=== PATIENT | male | born 1950 | race Caucasian/White ===

== ENCOUNTER 2023-03-04 10:36 | Outpatient (OUT) | payer MEDICARE, OTHER, SELFPAY ==
[2023-03-04 11:42] LABS: Basophils Absolute Auto 0.1 10^3/uL (0.0-0.1); Basophils Percent Auto 1.2 % (0.2-2.0); Eosinophils Absolute Auto 0.2 10^3/uL (0.0-0.7); Eosinophils Percent Auto 4.4 % (0.9-7.0); Hematocrit 39.3 % (42.0-54.0); Hemoglobin 12.9 g/dL (14.0-18.0); Immature Granulocytes Abs Auto 0.01 10^3/uL (0.00-0.03); Immature Granulocytes Pct Auto 0.2 % (0.0-0.5); Lymphocytes Absolute Auto 0.8 10^3/uL (1.2-3.8); Lymphocytes Percent Auto 16.3 % (20.5-60.0); Mean Corpuscular HGB Conc 32.8 g/dL (29.9-35.2); Mean Corpuscular Hemoglobin 30.1 pg (25.9-34.0); Mean Corpuscular Volume 91.6 fL (80.0-94.0); Mean Platelet Volume 9.9 fL (9.5-13.5); Monocytes Absolute Auto 0.6 10^3/uL (0.3-0.8); Monocytes Percent Auto 11.7 % (1.7-12.0); Neutrophils Absolute Auto 3.3 10^3/uL (1.4-6.5); Neutrophils Percent Auto 66.2 % (43.0-75.0); Platelet Count 226 10^3/uL (150-450); Red Blood Count 4.29 10^6/uL (4.70-6.10); Red Cell Distribution Width 12.8 % (11.0-15.0)
[2023-03-04 12:02] LABS: Alanine Aminotransferase 23 U/L (16-63); Albumin Level 3.6 g/dL (3.4-5.0); Alkaline Phosphatase 68 U/L (46-116); Anion Gap 13.1; Aspartate Amino Transferase 18 U/L (15-37); BUN Creatinine Ratio 20.4; Bilirubin Total 0.4 mg/dL (0.2-1.0); Carbon Dioxide 28.3 mmol/L (21.0-32.0); Chloride 104 mmol/L (98-107); Chol HDL Ratio 2.3; Cholesterol 161 mg/dL (<=200); Estimated GFR (African America >60 (>=60); Estimated GFR (Non-African Ame >60 (>=60); Globulin 3.7 g/dL; Glucose 105 mg/dL (74-106); HDL Cholesterol 69 mg/dL (40-60); Potassium 4.4 mmol/L (3.5-5.1); Sodium 141 mmol/L (136-145); Total Protein 7.3 g/dL (6.4-8.2); Triglycerides 97 mg/dL (<=150); VLDL CHOLESTEROL 19.4 mg/dL
== END 2023-03-04 10:37 | disposition home or self-care (01) ==
LOC: LAB 10:42
PROVIDERS: PCP Family Medicine; Visit Provider Nurse Practitioner
DX: I48.0 Paroxysmal atrial fibrillation (principal); I25.10 Atherosclerotic heart disease of native coronary artery without angina pectoris
CPT/HCPCS: 36415; 80053; 80061; 84443; 85025

== ENCOUNTER 2023-04-18 08:27 | Outpatient (OUT) | payer MEDICARE, OTHER, SELFPAY ==
[2023-04-18 10:00] LABS: Thyroid Stimulating Hormone 3.174 uIU/mL (0.358-3.740)
[2023-04-18 11:23] LABS: Free T4 0.91 ng/dL (0.76-1.46)
== END 2023-04-18 08:28 | disposition home or self-care (01) ==
LOC: LAB 08:29
PROVIDERS: PCP Family Medicine; Visit Provider Family Medicine
DX: R53.83 Other fatigue (principal)
CPT/HCPCS: 36415; 84439; 84443

== ENCOUNTER 2023-07-10 15:35 | Outpatient (REF) | payer MEDICARE, OTHER, SELFPAY ==
[2023-07-10 16:00] LABS: SARS-CoV-2 Ag POSITIVE (NEGATIVE)
== END 2023-07-10 15:36 | disposition home or self-care (01) ==
LOC: LAB 15:35
PROVIDERS: PCP Family Medicine; Visit Provider Family Medicine
DX: J20.9 Acute bronchitis, unspecified (principal)
CPT/HCPCS: 87811

== ENCOUNTER 2023-08-01 10:16 | Outpatient (OUT) | payer MEDICARE, OTHER, SELFPAY ==
--- OUTSIDE RECORDS SUMMARY | 2023-08-01 10:19 | XMS_ITS | CCD ---
Author Name Unknown Address [address] [place] [address] Organization [facility] Care Team Providers Care Athlete Marketing Agent Name Role Phone DEB KLEIN Primary Care Unavailable HOY DEB Referring Unavailable MASROOR, SINGH Admitting Unavailable MASROOR, SINGH Attending Unavailable HODEB Lawrence Referring Unavailable MOUKARBPIPPA GREWAL V Attending Unavailable MOUKARBELPIPPA V Admitting Unavailable HOYDEB Primary Care Unavailable HOYDEB Referring Unavailable SHASHI, MALGORZATA M Attending Unavailable SHASHIFRANKIEMALGORZATA M Admitting Unavailable HOYDEB Primary Care Unavailable SHASHIFRANKIEMALGORZATA Admitting Unavailable SHASHI, MALGORZATA Attending Unavailable HOY, DR BOYD Primary Care Unavailable SHASHI, MALGORZATA Consulting Unavailable CORRYY, DR BOYD Admitting Unavailable HOY, DR BOYD Attending Unavailable HOY, DR BOYD Primary Care Unavailable HOY, DR BOYD Consulting Unavailable HOY, DR BOYD Admitting Unavailable HOY, DR BOYD Attending Unavailable HOY, DR BOYD Primary Care Unavailable HOY, DR BOYD Consulting Unavailable HOY, DR BOYD Admitting Unavailable HOY, DR BOYD Attending Unavailable HOY, DR BOYD Primary Care Unavailable HOY, DR BOYD Consulting Unavailable MOUKARBEL, DR DAS Admitting Unavailable MOUKARBEL, DR DAS Attending Unavailable HOY, DR BOYD Primary Care Unavailable MOUKARBEL, DR DAS Consulting Unavailable MOUKARBEL, DR DAS Admitting Unavailable MOUKARBEL, DR DAS Attending Unavailable HOY, DR BOYD Primary Care Unavailable HOY, DR BOYD Admitting Unavailable HOY, DR BOYD Attending Unavailable HOY, DR BOYD Primary Care Unavailable MOUKARBEL, DR DAS Admitting Unavailable MOUKARBEL, DR DAS Attending Unavailable HOY, DR BOYD Primary Care Unavailable MOUKARBEL, DR DAS Consulting Unavailable SHASHI, MALGORZATA Attending Unavailable Problems Active Problems Problem Classification Problem Date Documented Date Episodic/Chronic Anxiety disorders (1 source) Anxiety disorder, unspecified; Translations: [ANXIETY DISORDER UNSPECIFIED] Onset: 12-21-2021 Chronic Cardiac dysrhythmias (2 sources) Paroxysmal atrial fibrillation; Translations: [Paroxysmal atrial fibrillation] Onset: 03-04-2023 Chronic Congestive heart failure; nonhypertensive (3 sources) Unspecified diastolic (congestive) heart failure; Translations: [Chronic diastolic (congestive) heart failure] Onset: 12-21-2021 Chronic Coronary atherosclerosis and other heart disease (3 sources) Atherosclerotic heart disease of [place] coronary artery without angina pectoris; Translations: [ASHD [place] W/O ANGINA PECTORIS] Onset: 12-21-2021 Chronic Disorders of lipid metabolism (3 sources) Hyperlipidemia, unspecified; Translations: [Mixed hyperlipidemia] Onset: 12-21-2021 Chronic Heart valve disorders (14 sources) Nonrheumatic aortic (valve) insufficiency; Translations: [Nonrheumatic mitral (valve) insufficiency] Onset: 08-07-2021 Chronic Hypertension with complications and secondary hypertension (1 source) Hypertensive heart disease with heart failure; Translations: [HTN HEART DISEASE W/HEART FAIL] Onset: 12-21-2021 Chronic Inflammatory conditions of male genital organs (4 sources) Inflammatory disease of prostate, unspecified; Translations: [INFLAMMATORY DISEASE PROSTATE UNS] Onset: 06-22-2022 Episodic Malaise and fatigue (3 sources) Other fatigue; Translations: [OTHER FATIGUE] Onset: 12-21-2021 Episodic Other endocrine disorders (1 source) Testicular hypofunction; Translations: [TESTICULAR HYPOFUNCTION] Onset: 06-27-2022 Chronic Past or Other Problems Problem Classification Problem Date Documented Da te Episodic/Chronic Deficiency and other anemia (1 source) Iron deficiency anemia, unspecified; Translations: [IRON DEFICIENCY ANEMIA UNSPECIFIED] Onset: 12-21-2021 Episodic Diabetes mellitus without complication (1 source) Other abnormal glucose; Translations: [OTHER ABNORMAL GLUCOSE] Onset: 12-21-2021 Episodic Other screening for suspected conditions (not mental disorders or infectious disease) (6 sources) Elevated prostate specific antigen [PSA]; Translations: [Encounter for screening for malignant neoplasm of prostate] Onset: 12-21-2021 Episodic Results Test Name Value Interpretation Reference Range Facility Office Visiton 03-04-2023 Follow-up visit [id number] Beau Devine 1950 M Date Provider Department Center 03/04/2023 MALGORZATA STAFFORD [facility] Family History Family history unknown: Yes Level of Service:23398 [place] OFFICE/OUTPATIENT ESTABLISHED MOD MDM 30-[address] [facility] 36on 02-22-2023 36 Patient needs an jie ointment for refills Normal [facility] PSA, FREE AND TOTAL RATIOon 06-23-2022 % Free PSA 14.7 % Normal [facility] Comment on above: Result Comment: The table below lists the probability of prostate cancer for men with non-suspicious TERRI results and total PSA between 4 and 10 ng/mL, by patient age (Brook et al, SAMAN 1998, 279:1542). % Free PSA 50-64 yr 65-75 yr 0.00-10.00% 56% 55% 10.01-15.00% 24% 35% 15.01-20.00% 17% 23% 20.01-25.00% 10% 20% >25.00% 5% 9% Please note: Brook et al did not make specific recommendations regarding the use of percent free PSA for any other population of men. Performed By: #### P SAFREE #### [facility] [address] [address] [address] Matt Suero Prostate specific Ag [Mass/Vol] 1.7 ng/mL Normal 0.0-4.0 [facility] Comment on above: Result Comment: Keiko menendez ECLIA methodology. . According to the [employer], Serum PSA should decrease and remain at undetectable levels after radical prostatectomy. The AUA defines biochemical recurrence as an initial PSA value 0.2 ng/mL or greater followed by a subsequent confirmatory PSA value 0.2 ng/mL or greater. Values obtained with different assay methods or kits cannot be used interchangeably. Results cannot be interpreted as absolute evidence of the presence or absence of malignant disease. Performed By: #### P SAFREE #### [facility] [address] [address] [address] Matt Suero PSA, Free 0.25 ng/mL Normal N/A [facility] Comment on above: Result Comment: Roch gemma ECLIA methodology. Performed By: #### P SAFREE #### [facility] [address] [place], [place] [address] Dr. Matt Suero TESTOSTERONE, TOTALon 2021 Testosterone [Mass/Vol] 302 ng/dL Normal 264-916 [facility] Comment on above: Result Comment: Adul t male reference interval is based on a population of healthy nonobese males (BMI <30) between 19 and 39 years old. Wilfredo et.al. JCEM 2017,102;3593-3778. PMID: [id number]. Performed By: #### O BSCRN #### [facility] [address] [place], [place] [address] Dr. Matt Suero 36on 06-07-2022 36 You saw patient on (in [place]) and he wanted to know if he could stop lasix. I don't see a mention of it in your assessment/plan. Can he stop? Normal [facility] PSA, FREE AND TOTAL RATIOon 02-02-2022 % Free PSA 13.2 % Normal [facility] Comment on above: Result Comment: The table below lists the probability of prostate cancer for men with non-suspicious TERRI results and total PSA between 4 and 10 ng/mL, by patient age (Catalthien et al, SAMAN 1998, 279:1542). % Free PSA 50-64 yr 65-75 yr 0.00-10.00% 56% 55% 10.01-15.00% 24% 35% 15.01-20.00% 17% 23% 20.01-25.00% 10% 20% >25.00% 5% 9% Please note: Brook et al did not make specific recommendations regarding the use of percent free PSA for any other population of men. Performed By: #### O BSCRN #### [facility] [address] [place], [place] [address] Dr. Matt Suero Prostate specific Ag [Mass/Vol] 2.2 ng/mL Normal 0.0-4.0 [facility] Comment on above: Result Comment: Keiko TURNER methodology. . According to the [employer], Serum PSA should decrease and remain at undetectable levels after radical prostatectomy. The AUA defines biochemical recurrence as an initial PSA value 0.2 ng/mL or greater followed by a subsequent confirmatory PSA value 0.2 ng/mL or greater. Values obtained with different assay methods or kits cannot be used interchangeably. Results cannot be interpreted as absolute evidence of the presence or absence of malignant disease. Performed By: #### O BSCRN #### [facility] [address] [place], [place] [address] Dr. Matt Suero PSA, Free 0.29 ng/mL Normal N/A [facility] Comment on above: Result Comment: Keiko menendez ECLIA methodology. Performed By: #### O BSCRN #### [facility] [address] [place], [place] [address] Dr. Matt Suero ECHOCARDIO M/2D COMPLETEon 0 01-03-2022 ECHOCARDIO M/2D COMPLETE Patient: ISRAEL DEVINE Exam Date: 01/03/2022 : 1950 Gender:M Ordering : MALGORZATA Scooter DANIELLE Admission #: [id number] Family : DR DEB KLEIN . Order #: [id number] CLICK HERE TO VIEW EXAM ECHOCARDIOGRAM REPORT PROCEDURE: CARDIO PULMONARY ECHOCARDIO M/2D COMP INDICATIONS: Aortic valve regurgitation S/P AVR; 27 mm Inspiris, Atriclip and MAZE procedure 07/12/2021 COMPARISON: None. DESCRIPTION: COMPLETE ECHOCARDIOGRAM Real-time transthoracic echocardiography with 2D, M-mode, spectral and color flow Doppler performed. QUALITY: Technical quality was limited. 72 207# 138/80 HR 74 LEFT VENTRICLE: Normal chamber size. Moderate concentric left ventricular hypertrophy. LV EF: Global left ventricular systolic function is normal. No regional wall motion abnormalities. Visual EF 60%. DIASTOLIC: Normal diastolic function. ATRIAL SEPTUM: Intact atrial septum. LEFT ATRIUM: Severe dilatation. RIGHT ATRIUM: Moderate dilatation. RIGHT VENTRICLE: Mild dilatation. Normal right ventricular systolic function. TRICUSPID VALVE: Normal mobility and thickness. No stenosis with mild regurgitation. No evidence of pulmonary hypertension. RVSP 24 mmHg MITRAL VALVE: Normal mobility and thickness. No evidence of mitral valve stenosis. Mild mitral regurgitation. AORTIC VALVE: Bio-Prosthetic valve appears well seated in the aortic position with normal Doppler flow. Normal leaflet mobility. No evidence of aortic valve stenosis. Mild tanner-valvular insufficiency. Trivial aortic regurgitation. AORTIC ROOT: The aortic sinuses and ascending aorta are mildly enlarged. PULMONIC VALVE: Normal thickness and mobility. No stenosis. Trivial regurgitation. PERICARDIUM: No evidence of pericardial effusion. IVC: Collapses with inspirations. IVC is normal in size. CONCLUSION: Global left ventricular systolic function is normal; visually estimated ejection fraction is 60 to 65%. Moderate left ventricular hypertrophy. Normal diastolic function. Moderate to severe biatrial enlargement. The right ventricle is mildly dilated with normal systolic function. Mild tricuspid regurgitation. Mild mitral regurgitation. A bioprosthetic aortic valve is seen with normal Doppler flows. Mild perivalvular insufficiency. The aortic sinuses and ascending aorta are mildly enlarged. Adult Echocardiography Procedure Report Left Ventricle Left Atrium Mitral Valve Right Ventricle Aorta Aortic Valve Peak Velocity (Antegrade Flow): 1.80 m/s, 1.80 m/s AoV Area (Peak Carlos): 2.20 cm2, 2.20 cm2, 2.20 cm2, 2.20 cm2, 2.21 cm2, 2.21 cm2, 2.21 cm2, 2.21 cm2 AoV Area (VTI): 2.20 cm2, 2.20 cm2 Peak Velocity(Antegrade Flow): 1.80 m/s, 1.80 m/s Peak Gradient(Antegrade Flow): 12.92 mm[Hg], 12.92 mm[Hg] Mean Velocity(Antegrade Flow): 1.21 m/s Mean Gradient(Antegrade Flow): 6.59 mm[Hg] Velocity Time Integral: 34.41 cm Tricuspid Valve Peak Velocity (Regurgitant Flow): 1.73 m/s, 2.32 m/s Peak Velocity: 0.40 m/s Pulmonic Valve PV Max Carlos (0.6 - 0.9 m per sec): 0.74 m/s PV Max Gradient: 2.18 mm[Hg] Right Atrium Dictated by: Elliot Sr M.D. on 01/03/2022 at 13:37 Approved by: Elliot Sr M.D. on 01/03/2022 at 13:41 Normal [facility] PSA, FREE AND TOTAL RATIOon 12-21-2021 % Free PSA 25.3 % Normal [facility] Comment on above: Result Comment: The table below lists the probability of prostate cancer for men with non-suspicious TERRI results and total PSA between 4 and 10 ng/mL, by patient age (Brook et al, SAMAN 1998, 279:1542). % Free PSA 50-64 yr 65-75 yr 0.00-10.00% 56% 55% 10.01-15.00% 24% 35% 15.01-20.00% 17% 23% 20.01-25.00% 10% 20% >25.00% 5% 9% Please note: Brook et al did not make specific recommendations regarding the use of percent free PSA for any other population of men. Performed By: #### O BSCRN #### [facility] [address] [place] [address] Dr. Matt Suero Prostate specific Ag [Mass/Vol] 10.4 ng/mL Critically high 0.0-4.0 [facility] Comment on above: Result Comment: Keiko TURNER methodology. . According to the [employer], Serum PSA should decrease and remain at undetectable levels after radical prostatectomy. The AUA defines biochemical recurrence as an initial PSA value 0.2 ng/mL or greater followed by a subsequent confirmatory PSA value 0.2 ng/mL or greater. Values obtained with different assay methods or kits cannot be used interchangeably. Results cannot be interpreted as absolute evidence of the presence or absence of malignant disease. Performed By: #### O BSCRN #### [facility] [address] [place] [address] Dr. Matt Suero PSA, Free 2.63 ng/mL Normal N/A [facility] Comment on above: Result Comment: Keiko TURNER methodology. Performed By: #### O BSCRN #### [facility] [address] [place] [address] Dr. Matt Suero INSULINon 12-20-2021 Insulin 13.6 uIU/mL Normal 2.6-24.9 [facility] Comment on above: Performed By: #### I NSULIN #### [facility] [address] [place] [address] Dr. Matt Suero TESTOSTERONE, TOTALon 2021 Testosterone [Mass/Vol] 250 ng/dL Critically low 264-916 [facility] Comment on above: Result Comment: Adul t male reference interval is based on a population of healthy nonobese males (BMI <30) between 19 and 39 years old. wenceslao Villalobos. JCEM 2017,102;0212-0831. PMID: [id number]. Performed By: #### O BSCRN #### [facility] [address] [place] [address] Dr. Matt Suero BNPon 12-19-2021 Natriuretic peptide B (Bld) [Mass/Vol] 795.0 pg/mL Normal <=900.0 [facility] Comment on above: Performed By: #### B SUPERVISOR COIL WINDING, URIC, CMP, LIPID #### [facility] [address] [place] [address] Dr. Matt Suero CBC AUTO DIFFon 12-19-2021 BASO # 0.1 103/ul Normal 0.0-0.1 [facility] Comment on above: Performed By: #### C BC #### [facility] [address] [place] [address] Dr. Matt Suero Basophils/100 WBC (Bld) 0.6 % Normal 0.2-2.0 [facility] Comment on above: Performed By: #### C BC #### [facility] [address] [place] [address] Dr. Matt Suero EO # 0.3 103/ul Normal 0.0-0.7 [facility] Comment on above: Performed By: #### C BC #### [facility] [address] [place] [address] Dr. Matt Suero Eosinophils/100 WBC (Bld) 2.6 % Normal 0.9-7.0 [facility] Comment on above: Performed By: #### C BC #### [facility] [address] [place] [address] Dr. Matt Suero Erythrocyte distribution width (RBC) [Ratio] 14.4 % Normal 11.0-15.0 [facility] Comment on above: Performed By: #### C BC #### [facility] [address] [place] [address] Dr. Matt Suero Hematocrit (Bld) [Volume fraction] 36.5 % Critically low 42.0-54.0 [facility] Comment on above: Performed By: #### C BC #### [facility] [address] [address] [address] Matt Suero Hemoglobin (Bld) [Mass/Vol] 11.6 g/dL Critically low 14.0-18.0 [facility] Comment on above: Performed By: #### C BC #### [facility] [address] [address] [address] Matt Suero IG # 0.03 10e3/ul Normal 0.00-0.03 [facility] Comment on above: Performed By: #### C BC #### [facility] [address] [address] [address] Matt Suero IG % 0.3 % Normal 0.0-0.5 [facility] Comment on above: Performed By: #### C BC #### [facility] [address] [place] [address] Dr. Matt Suero LYMPH # 0.9 103/ul Critically low 1.2-3.8 [facility] Comment on above: Performed By: #### C BC #### [facility] [address] [place] [address] Dr. Matt Suero Lymphocytes/100 WBC (Bld) 8.8 % Critically low 20.5-60.0 [facility] Comment on above: Performed By: #### C BC #### [facility] [address] [place] [address] Dr. Matt Suero MANUAL DIFF REQ NO Normal [facility] Comment on above: Performed By: #### C BC #### [facility] [address] [place] [address] Dr. Matt Suero MCH (RBC) [Entitic mass] 28.8 pg Normal 25.9-34.0 [facility] Comment on above: Performed By: #### C BC #### [facility] [address] [place] [address] Dr. Matt Suero MCHC (RBC) [Mass/Vol] 31.8 g/dL Normal 29.9-35.2 [facility] Comment on above: Performed By: #### C BC #### [facility] [id number] Matt Suero MCV (RBC) [Entitic vol] 90.6 fL Normal 80.0-94.0 [facility] Comment on above: Performed By: #### C BC #### [facility] [address] [address] [address] Matt Suero MONO # 1.0 103/ul Critically high 0.3-0.8 [facility] Comment on above: Performed By: #### C BC #### [facility] [address] [address] [address] Matt Suero Monocytes/100 WBC (Bld) 9.2 % Normal 1.7-12.0 [facility] Comment on above: Performed By: #### C BC #### [facility] [address] [address] [address] Matt Suero NEUT # 8.3 103/ul Critically high 1.4-6.5 [facility] Comment on above: Performed By: #### C BC #### [facility] [address] [address] [address] Matt Suero Neutrophils/100 WBC (Bld) 78.5 % Critically high 43.0-75.0 [facility] Comment on above: Performed By: #### C BC #### [facility] [address] [address] [address] Matt Suero Platelet mean volume (Bld) [Entitic vol] 8.8 fL Critically low 9.5-13.5 [facility] Comment on above: Performed By: #### C BC #### [facility] [address] [address] [address] Matt Suero PLT 277 103/ul Normal 150-450 [facility] Comment on above: Performed By: #### C BC #### [facility] [id number] Matt Suero RBC 4.03 106/ul Critically low 4.70-6.10 [facility] Comment on above: Performed By: #### C BC #### [facility] [address] [address] [address] Matt Suero WBC 10.6 103/ul Normal 4.0-11.0 [facility] Comment on above: Performed By: #### C BC #### [facility] [address] [place] [address] Dr. Matt Suero GLYCOHEMOGLOBIN A1Con 2021 ADA RECOMMENDATION SEE BELOW Normal [facility] Comment on above: Result Comment: ADA RECOMMENDED LIMIT 4.0 - 6.0 ADA THERAPEUTIC TARGET < 7.0 ACTION SUGGESTED > 7.0 Performed By: #### O BSCRN #### [facility] [address] [place] [address] Dr. Matt Suero Glucose [Mass/Vol] 126 mg/dL Normal [facility] Comment on above: Performed By: #### O BSCRN #### [facility] [address] [place] [address] Dr. Matt Suero HbA1c (Bld) [Mass fraction] 6.0 % Normal 4.5-6.2 [facility] Comment on above: Performed By: #### O BSCRN #### [facility] [address] [place] [address] Dr. Matt Suero LIPID PROFILEon 12-19-2021 CHOL-HDL RATIO NORM SEE BELOW Normal [facility] Comment on above: Result Comment: 3.3 - 4.4 LOW RISK 4.4 - 7.1 AVERAGE RISK 7.1 - 11.0 MODERATE RISK >11.0 HIGH RISK Performed By: #### B SUPERVISOR COIL WINDING, URIC, CMP, LIPID #### [facility] [address] [place] [address] Dr. Matt Suero Cholesterol [Mass/Vol] 153 mg/dL Normal <=200 [facility] Comment on above: Performed By: #### B SUPERVISOR COIL WINDING, URIC, CMP, LIPID #### [facility] [address] [place] [address] Dr. Matt Suero Cholesterol in HDL [Mass/Vol] 69 mg/dL Critically high 40-60 [facility] Comment on above: Performed By: #### B SUPERVISOR COIL WINDING, URIC, CMP, LIPID #### [facility] [address] [address] [address] Matt Suero Cholesterol in LDL [Mass/Vol] 69.0 mg/dL Normal [facility] Comment on above: Performed By: #### B SUPERVISOR COIL WINDING, URIC, CMP, LIPID #### [facility] [address] [place] [address] Dr. Matt Suero Cholesterol.total/ Cholesterol in HDL [Mass ratio] 2.2 {ratio} Normal [facility] Comment on above: Performed By: #### B SUPERVISOR COIL WINDING, URIC, CMP, LIPID #### [facility] [address] [place] [address] Dr. Matt Suero HDL NORMAL > or = 60 mg/dl - LO W CARDIOVASCULAR RISK <40 mg/dl - HIGH CARDIOVASCULAR RISK Normal [facility] Comment on above: Performed By: #### B SUPERVISOR COIL WINDING, URIC, CMP, LIPID #### [facility] [address] [place] [address] Dr. Matt Suero LDL CALC NORMAL SEE BELOW Normal [facility] Comment on above: Result Comment: <100 mg/dl OPTIMAL 100 - 129 mg/dl NEAR OR ABOVE OPTIMAL 130 - 159 mg/dl BORDERLINE HIGH 160 - 189 mg/dl HIGH >190 mg/dl VERY HIGH Performed By: #### B SUPERVISOR COIL WINDING, URIC, CMP, LIPID #### [facility] [address] [place] [address] Dr. Matt Suero Triglyceride [Mass/Vol] 72 mg/dL Normal <=150 [facility] Comment on above: Performed By: #### B SUPERVISOR COIL WINDING, URIC, CMP, LIPID #### [facility] [address] [place] [address] Dr. Matt Suero VLDL CALC 14.4 mg/dL Normal [facility] Comment on above: Performed By: #### B SUPERVISOR COIL WINDING, URIC, CMP, LIPID #### [facility] [address] [place] [address] Dr. Matt Suero OCC BLD IMMUNO SCREENon 11-27 OCCULT BLOOD Negative Normal NEGATIVE [facility] Comment on above: Performed By: #### O BSCRN #### [facility] [address] [place] [address] Dr. Matt Suero PROF 14(COMP METB)on 022 Albumin [Mass/Vol] 3.3 g/dL Critically low 3.4-5.[address] [facility] Comment on above: Performed By: #### B SUPERVISOR COIL WINDING, URIC, CMP, LIPID #### [facility] [address] [address] [address] Matt Suero Albumin/Globulin [Mass ratio] 0.8 {ratio} Normal [facility] Comment on above: Performed By: #### B SUPERVISOR COIL WINDING, URIC, CMP, LIPID #### [facility] [address] [address] [address] Matt Suero ALP [Catalytic activity/Vol] 76 U/L Normal 46-116 [facility] Comment on above: Performed By: #### B SUPERVISOR COIL WINDING, URIC, CMP, LIPID #### [facility] Laboratory [address] [place] [address] Dr. Matt Suero ALT [Catalytic activity/Vol] 24 U/L Normal 16-63 [facility] Comment on above: Performed By: #### B SUPERVISOR COIL WINDING, URIC, CMP, LIPID #### [facility] Laboratory [address] [address] [address] Matt Suero Anion gap [Moles/Vol] 13.8 mmol/L Normal [facility] Comment on above: Performed By: #### B SUPERVISOR COIL WINDING, URIC, CMP, LIPID #### [facility] Laboratory [address] [address] [address] Matt Suero AST [Catalytic activity/Vol] 19 U/L Normal 15-37 [facility] Comment on above: Performed By: #### B SUPERVISOR COIL WINDING, URIC, CMP, LIPID #### [facility] [address] [address] [address] Matt Suero Bilirubin [Mass/Vol] 0.5 mg/dL Normal 0.2-1.0 [facility] Comment on above: Performed By: #### B SUPERVISOR COIL WINDING, URIC, CMP, LIPID #### [facility] [address] [address] [address] Matt Suero Calcium [Mass/Vol] 9.0 mg/dL Normal 8.5-10.1 [facility] Comment on above: Performed By: #### B SUPERVISOR COIL WINDING, URIC, CMP, LIPID #### [facility] Laboratory [address] [address] [address] Matt Suero Chloride [Moles/Vol] 102 mmol/L Normal 98-107 [facility] Comment on above: Performed By: #### B SUPERVISOR COIL WINDING, URIC, CMP, LIPID #### [facility] [address] [address] [address] Matt Suero CO2 [Moles/Vol] 28.3 mmol/L Normal 21.0-32.0 [facility] Comment on above: Performed By: #### B SUPERVISOR COIL WINDING, URIC, CMP, LIPID #### [facility] Laboratory [address] [place] [address] Dr. Matt Suero Creatinine [Mass/Vol] 1.01 mg/dL Normal 0.70-1.30 [facility] Comment on above: Performed By: #### B SUPERVISOR COIL WINDING, URIC, CMP, LIPID #### [facility] Laboratory [address] [place] [address] Dr. Matt Suero EGFR-AF GUYANESE >60 Normal >=60 [facility] Comment on above: Performed By: #### B SUPERVISOR COIL WINDING, URIC, CMP, LIPID #### [facility] Laboratory [address] [place] [address] Dr. Matt Suero EGFR-NON AF GUYANESE >60 Normal >=60 [facility] Comment on above: Performed By: #### B SUPERVISOR COIL WINDING, URIC, CMP, LIPID #### [facility] Laboratory [address] [place] [address] Dr. Matt Suero Globulin (S) [Mass/Vol] 4.2 g/dL Normal [facility] Comment on above: Performed By: #### B SUPERVISOR COIL WINDING, URIC, CMP, LIPID #### [facility] Laboratory [address] [place] [address] Dr. Matt Suero Glucose [Mass/Vol] 115 mg/dL Critically high 74-106 [facility] Comment on above: Performed By: #### B SUPERVISOR COIL WINDING, URIC, CMP, LIPID #### [facility] Laboratory [address] [place] [address] Dr. Matt Suero Potassium [Moles/Vol] 4.6 mmol/L Normal 3.5-5.1 [facility] Comment on above: Performed By: #### B SUPERVISOR COIL WINDING, URIC, CMP, LIPID #### [facility] Laboratory [address] [place] [address] Dr. Matt Suero Protein [Mass/Vol] 7.5 g/dL Normal 6.4-8.2 [facility] Comment on above: Performed By: #### B SUPERVISOR COIL WINDING, URIC, CMP, LIPID #### [facility] [address] [address] [address] Matt Suero Sodium [Moles/Vol] 140 mmol/L Normal 136-145 [facility] Comment on above: Performed By: #### B SUPERVISOR COIL WINDING, URIC, CMP, LIPID #### [facility] Laboratory [address] [place] [address] Dr. Matt Suero Urea nitrogen [Mass/Vol] 21.0 mg/dL Critically high 7.0-18.0 [facility] Comment on above: Performed By: #### B SUPERVISOR COIL WINDING, URIC, CMP, LIPID #### [facility] Laboratory [address] [place] [address] Dr. Matt Suero Urea nitrogen/Creatinin e [Mass ratio] 20.7 mg/mg Normal [facility] Comment on above: Performed By: #### B SUPERVISOR COIL WINDING, URIC, CMP, LIPID #### [facility] Laboratory [address] [place] [address] Dr. Matt Suero URIC ACID SERUMon 12-19-2021 Urate [Mass/Vol] 5.2 mg/dL Normal 3.5-7.2 [facility] Comment on above: Performed By: #### B SUPERVISOR COIL WINDING, URIC, CMP, LIPID #### [facility] [address] [place] [address] Dr. Matt Suero ECHOCARDIO M/2D COMPLETEon 0 09-08-2021 ECHOCARDIO M/2D COMPLETE Patient: ISRAEL DEVINE Exam Date: 09/08/2021 : 1950 Gender:M Ordering : DR PIPPA BENITEZ M.D. Admission #: [id number] Family : DR DEB KLEIN . Order #: [id number] CLICK HERE TO VIEW EXAM ECHOCARDIOGRAM REPORT PROCEDURE: CARDIO PULMONARY ECHOCARDIO M/2D COMP INDICATIONS: Aortic valve regurgitation, Aortic valve replacement (07/12/2021), hypertension COMPARISON: None. DESCRIPTION: COMPLETE ECHOCARDIOGRAM Real-time transthoracic echocardiography with 2D, M-mode, spectral and color flow Doppler performed. QUALITY: Technical quality was good. LEFT VENTRICLE: Normal chamber size. Moderate concentric left ventricular hypertrophy. Global left ventricular systolic function is normal. LV EF: Normal left ventricular ejection fraction, (60-65%). DIASTOLIC: Normal diastolic function. ATRIAL SEPTUM: Visually appears intact. LEFT ATRIUM: Moderate dilatation. RIGHT ATRIUM: Normal chamber size. RIGHT VENTRICLE: Normal chamber size. Decreased right ventricular systolic function. TRICUSPID VALVE: Normal mobility and thickness. No stenosis with mild to moderate regurgitation. No evidence of pulmonary hypertension. RVSP 24 mmHg MITRAL VALVE: Normal mobility and thickness. No evidence of mitral valve stenosis. There is no mitral annular calcification. Mild to moderate mitral regurgitation. AORTIC VALVE: Bio-Prosthetic valve appears well seated in the aortic position with normal doppler flows. No aortic regurgitation. AORTIC ROOT: Normal diameter and appearance. PULMONIC VALVE: Not well visualized. No stenosis. Trivial regurgitation. PERICARDIUM: No evidence of pericardial effusion. IVC: Collapses with inspirations. IVC is normal in size. PLEURA: CONCLUSION: 1. Normal ventricular function. LVEF is 60-65%. 2. Bioprosthetic aortic valve with normal Doppler flows. 3. Mild to moderate mitral and tricuspid regurgitation. 4. Normal right sided pressures. 5. No pericardial effusion. Adult Echocardiography Procedure Report Left Ventricle LVEDD (3.7 - 5.6 cm): 5.01 cm LVESD (2.2 - 4.0 cm): 3.37 cm LVIVS thickness (0.6 - 1.2 cm): 1.55 cm LVPW thickness (0.5 - 1.0 cm): 1.46 cm e': 12.00 cm/s E - e': 8.40 LVOT Area (cm2): 3.80 cm2 LVOT Diameter 2.20 cm Left Ventricular Ejection Fraction: 60-65% Left Atrium LA Volume Index (2D A2C): 60.60 ml/m2 Left Atrium Systolic Dimension: 5.00 cm Left Atrium Systolic Area(A2C): 33.00 cm2 Left Atrium Systolic Area(A4C): 26.40 cm2 Left Atrium Systolic Volume(A2C): 114452 mm3 Left Atrium Systolic Volume(A4C): 57358 mm3 Mitral Valve MV E to A Ratio: 2.10 Mitral Valve A-Wave Peak Velocity: 47.40 cm/s Mitral Valve E-Wave Peak Velocity: 101.00 cm/s Deceleration Time: 251 ms Right Ventricle Aorta AO Root Diam: 4.20 cm Aortic Valve AoV Area (Peak Carlos): 2.01 cm2 Peak Velocity(Antegrade Flow): 129.00 cm/s Peak Gradient(Antegrade Flow): 7 mm[Hg] Tricuspid Valve Pulmonic Valve Peak Velocity: 82.00 cm/s Peak Gradient: 3 mm[Hg] Right Atrium Dictated by: Pippa Benitez M.D. on 09/08/2021 at 15:54 Approved by: Pippa Benitez M.D. on 09/08/2021 at 15:59 Normal [facility] BASIC METABOLIC PANELon 12-2 Calcium [Mass/Vol] 8.9 mg/dL Normal 8.6-10.[address] [facility] Comment on above: Order Comment: Pneum othorax Performed By: #### 0 0071, 35332, 99730 ####[facility] [facility] [address], [facility] Chloride [Moles/Vol] 93 mmol/L Low 98-[address] [facility] Comment on above: Order Comment: Pneum othorax Performed By: #### 0 0071, 63425, 89319 ####[facility] [facility] [address], [facility] CO2 [Moles/Vol] 30 mmol/L Normal 21-[address] [facility] Comment on above: Order Comment: Pneum othorax Performed By: #### 0 0071, 10405, 52404 ####[facility] [facility] [place] [address], [facility] Creatinine [Mass/Vol] 1.00 mg/dL Normal 0.70-1.[address] [facility] Comment on above: Order Comment: Pneum othorax Performed By: #### 0 0071, 30418, 31976 ####[facility] [place] [address], [place] GFR/1.73 sq M.predicted among blacks MDRD (S/P/Bld) [Vol rate/Area] mL/min/{1.73_m2} Normal >[address] [facility] Comment on above: Order Comment: Pneum othorax Result Comment: Calc ulation may not be valid for patients over 70 years Performed By: #### 0 0071, 24490, 18437 ####[facility] [place] [address], [place] GFR/1.73 sq M.predicted among non-blacks MDRD (S/P/Bld) [Vol rate/Area] mL/min/{1.73_m2} Normal >[address] [facility] Comment on above: Order Comment: Pneum othorax Result Comment: Calc ulation may not be valid for patients over 70 years Performed By: #### 0 0071, 17670, 64850 ####[facility] [place] [address], [place] Glucose [Mass/Vol] 112 mg/dL High 70-[address] [facility] Comment on above: Order Comment: Pneum othorax Performed By: #### 0 0071, 17137, 10933 ####[facility] [place] [address], [place] Potassium [Moles/Vol] 3.9 mmol/L Normal 3.5-5.[address] [facility] Comment on above: Order Comment: Pneum othorax Performed By: #### 0 0071, 28307, 21812 ####[facility] [place] [address], [place] Sodium [Moles/Vol] 134 mmol/L Low 136-[address] [facility] Comment on above: Order Comment: Pneum othorax Performed By: #### 0 0071, 25803, 98967 ####[facility] [place] [address], [facility] Urea nitrogen [Mass/Vol] 20 mg/dL Normal 7-[address] [facility] Comment on above: Order Comment: Pneum othorax Performed By: #### 0 0071, 79568, 20189 ####[facility] [place] [address], [facility] CBC COMPLETE BLOOD COUNTon 09-17-2020 Erythrocyte distribution width (RBC) [Ratio] 12.7 % Normal 11.5-15.[address] [facility] Comment on above: Order Comment: No: D o not add to previous draw Performed By: #### 5 0608 #### [facility] [address] [place] [address], [facility] Hematocrit (Bld) [Volume fraction] 31.6 % Low 39.0-50.[address] [facility] Comment on above: Order Comment: No: D o not add to previous draw Performed By: #### 5 0608 #### [facility] [address] [place] [address], [facility] Hemoglobin (Bld) [Mass/Vol] 10.3 g/dL Low 13.0-17.[address] [facility] Comment on above: Order Comment: No: D o not add to previous draw Performed By: #### 5 0608 #### [facility] [address] [place] [address], [facility] MCH (RBC) [Entitic mass] 30.5 pg Normal 27.0-33.[address] [facility] Comment on above: Order Comment: No: D o not add to previous draw Performed By: #### 5 0608 #### [facility] [address] [place] [address], [facility] MCHC (RBC) [Mass/Vol] 32.6 g/dL Normal 32.0-35.[address] [facility] Comment on above: Order Comment: No: D o not add to previous draw Performed By: #### 5 0608 #### [facility] [address] [place] [address], [facility] MCV (RBC) [Entitic vol] 93.5 fL Normal 82.0-98.[address] [facility] Comment on above: Order Comment: No: D o not add to previous draw Performed By: #### 5 0608 #### [facility] [address] [facility] [address], [facility] Nucleated RBC/100 WBC (Bld) [Ratio] 0 % Normal 0-[address] [facility] Comment on above: Order Comment: No: D o not add to previous draw Performed By: #### 5 0608 #### [facility] [address] [facility] [place] [address], [facility] PLAT CNT 200 10*3/uL Normal 150-[address] [facility] Comment on above: Order Comment: No: D o not add to previous draw Performed By: #### 5 0608 #### [facility] [address] [facility] [place] [address], [facility] RBC (Bld) [#/Vol] 3.38 10*6/uL Low 4.20-5.[address] [facility] Comment on above: Order Comment: No: D o not add to previous draw Performed By: #### 5 0608 #### [facility] [address] [facility] [place] [address], [facility] WBC (Bld) [#/Vol] 9.06 10*3/uL Normal 4.00-10.[address] [facility] Comment on above: Order Comment: No: D o not add to previous draw Performed By: #### 5 0608 #### [facility] [address] [facility] [place] [address], [facility] MAGNESIUM BLOODon 07-17-2021 Magnesium [Mass/Vol] 1.8 mg/dL Low 1.9-2.[address] [facility] Comment on above: Order Comment: Pneum othorax Performed By: #### 0 0071, 15650, 61822 ####[facility] [facility] [place] [address], [facility] PHOSPHORUS BLOODon Phosphate [Mass/Vol] 4.3 mg/dL Normal 2.5-5.[address] [facility] Comment on above: Order Comment: Pneum othorax Performed By: #### 0 0071, 67668, 25715 ####[id number] [facility] [place] [address], [facility] POC GLUCOSE LABon 07-17-2021 Glucose [Mass/Vol] 151 mg/dL High 70-[address] [facility] Comment on above: Performed By: #### 8 5499 #### [facility] [address] [facility] [place] [address], [facility] Glucose [Mass/Vol] 111 mg/dL High 70-[address] [facility] Comment on above: Performed By: #### 8 5499 #### [facility] [address] [place], [place] [id number] [place] [address] PORTABLE CHEST 1 VIEWon 06-29 PORTABLE CHEST [address] [facility] Department of Radiology [address] [place] [id number] Patient Name: ISRAEL DEVINE : 1950 Sex: M Age: Race: White Pt. Location: [address] [place] [address] Patient Status: I Ordered Date: 07/17/2021 5:00:00 AM Completed Date: 07/17/2021 07:29 AM Requesting Provider: THA PARKINSON Attending Provider: SINGH DOTSON Report Copy To: Signs & Symptoms: Post OP History: Comments: Evaluate for Pneumothorax Exam: PORTABLE CHEST 1 VIEW PORTABLE CHEST 1 VIEW 07/17/2021 7:29 AM CLINICAL INDICATIONS: Post OP TECHNOLOGIST COMMENTS: Post op - evaluate for pneumothorax QUESTION FOR THE RADIOLOGIST: Evaluate for Pneumothorax PROTOCOL: AP(PA) view was obtained. COMPARISON: 07/16/2021 FINDINGS: Minimal basilar atelectasis. Right perihilar atelectasis. No new infiltrate. Heart size stable. No pneumothorax. IMPRESSION: No significant interval change Electronically signed: Kumar Ross. Transcribed by: [email or web address], User Resident: Electronically Signed by: KUMAR ROSS @ 07/17/2021 07:45 AM Normal [facility] Comment on above: Order Comment: The A ptima SARS-CoV-2 assay is a nucleic acid amplification test intended for the qualitative detection of RNA from SARS-CoV-2 isolated and purified from nasopharyngeal (SUPERVISOR COIL WINDING),oropharyngeal (OP), nasal swab, sputum, and bronchoalveolar lavage (BAL) specimens from patients with signs and symptoms of infection who are suspected of COVID-19. Results are for the identification of SARS-CoV-2 RNA. The SARS-CoV-2 RNA is generally detectable during the acute phase of infection. The Aptima SARS-CoV-2 Assay on the [employer] and [employer] Fusion system is intended for use by laboratory personnel specifically instructed and trained in the operation of the [place] and [employer] Fusion system. The Aptima SARS-CoV-2 assay is only for use under the Food and Drug Administration Emergency Use Authorization. Testing is limited to laboratories certified under the Clinical Laboratory Improvement Amendments of 1988 (CLIA), 42 U.S.C. ???263a, to perform high complexity tests. Not Detected: Not detected does not preclude SARS-CoV-2 infection and should not be used as the sole basis for patient management decisions. Not detected results must be combined with clinical observations, patient history, and epidemiological information. BASIC METABOLIC PANELon 12-1 Calcium [Mass/Vol] 8.6 mg/dL Normal 8.6-10.[address] [facility] Comment on above: Order Comment: Pneum othorax Performed By: #### 4 1000, 05839, 08241 ####[facility] [place] [address], [facility] Chloride [Moles/Vol] 97 mmol/L Low 98-[address] [facility] Comment on above: Order Comment: Pneum othorax Performed By: #### 4 1000, 22971, 57656 ####[facility] [place] [address], [facility] CO2 [Moles/Vol] 30 mmol/L Normal 21-[address] [facility] Comment on above: Order Comment: Pneum othorax Performed By: #### 4 1000, 42817, 36946 ####[facility] [facility] [place] [address], [facility] Creatinine [Mass/Vol] 0.92 mg/dL Normal 0.70-1.[address] [facility] Comment on above: Order Comment: Pneum othorax Performed By: #### 4 1000, 23778, 36405 ####[facility] [facility] [place] [address], [facility] GFR/1.73 sq M.predicted among blacks MDRD (S/P/Bld) [Vol rate/Area] mL/min/{1.73_m2} Normal >[address] [facility] Comment on above: Order Comment: Pneum othorax Result Comment: Calc ulation may not be valid for patients over 70 years Performed By: #### 4 1000, 20374, 09764 ####[facility] [place] [address], [facility] GFR/1.73 sq M.predicted among non-blacks MDRD (S/P/Bld) [Vol rate/Area] mL/min/{1.73_m2} Normal >[address] [facility] Comment on above: Order Comment: Pneum othorax Result Comment: Calc ulation may not be valid for patients over 70 years Performed By: #### 4 1000, 38640, 20096 ####[facility] [place] [address], [facility] Glucose [Mass/Vol] 107 mg/dL High 70-[address] [facility] Comment on above: Order Comment: Pneum othorax Performed By: #### 4 1000, 73133, 56603 ####[facility] [id number], [facility] Potassium [Moles/Vol] 4.1 mmol/L Normal 3.5-5.[address] [facility] Comment on above: Order Comment: Pneum othorax Performed By: #### 4 1000, 85256, 81604 ####[facility] [address], [facility] Sodium [Moles/Vol] 134 mmol/L Low 136-[address] [facility] Comment on above: Order Comment: Pneum othorax Performed By: #### 4 1000, 01734, 20806 ####[facility] [facility] [place] [address], [facility] Urea nitrogen [Mass/Vol] 22 mg/dL Normal 7-[address] [facility] Comment on above: Order Comment: Pneum othorax Performed By: #### 4 1000, 05975, 00778 ####[facility] [facility] [place] [address], [facility] CBC COMPLETE BLOOD COUNTon 09-16-2020 Erythrocyte distribution width (RBC) [Ratio] 12.5 % Normal 11.5-15.[address] [facility] Comment on above: Order Comment: No: D o not add to previous draw Performed By: #### 5 0608 #### [facility] [address] [place] [address], [facility] Hematocrit (Bld) [Volume fraction] 27.1 % Low 39.0-50.[address] [facility] Comment on above: Order Comment: No: D o not add to previous draw Performed By: #### 5 0608 #### [facility] [address] [place] [address], [facility] Hemoglobin (Bld) [Mass/Vol] 8.8 g/dL Low 13.0-17.[address] [facility] Comment on above: Order Comment: No: D o not add to previous draw Performed By: #### 5 0608 #### [facility] [address] [place] [address], [facility] MCH (RBC) [Entitic mass] 30.1 pg Normal 27.0-33.[address] [facility] Comment on above: Order Comment: No: D o not add to previous draw Performed By: #### 5 0608 #### [facility] [address] [place] [address], [facility] MCHC (RBC) [Mass/Vol] 32.5 g/dL Normal 32.0-35.[address] [facility] Comment on above: Order Comment: No: D o not add to previous draw Performed By: #### 5 0608 #### [facility] [address] [facility] [place] [address], [facility] MCV (RBC) [Entitic vol] 92.8 fL Normal 82.0-98.[address] [facility] Comment on above: Order Comment: No: D o not add to previous draw Performed By: #### 5 0608 #### [facility] [address] [facility] [place] [address], [facility] Nucleated RBC/100 WBC (Bld) [Ratio] 0 % Normal 0-[address] [facility] Comment on above: Order Comment: No: D o not add to previous draw Performed By: #### 5 0608 #### [facility] [address] [facility] [place] [address], [facility] PLAT CNT 147 10*3/uL Low 150-[address] [facility] Comment on above: Order Comment: No: D o not add to previous draw Performed By: #### 5 0608 #### [facility] [address] [place] [address], [facility] RBC (Bld) [#/Vol] 2.92 10*6/uL Low 4.20-5.[address] [facility] Comment on above: Order Comment: No: D o not add to previous draw Performed By: #### 5 0608 #### [facility] [address] [place] [address], [facility] WBC (Bld) [#/Vol] 6.78 10*3/uL Normal 4.00-10.[address] [facility] Comment on above: Order Comment: No: D o not add to previous draw Performed By: #### 5 0608 #### [facility] [address] [place], [place] [id number] [place] [address] MAGNESIUM BLOODon 07-16-2021 Magnesium [Mass/Vol] 2.0 mg/dL Normal 1.9-2.[address] [facility] Comment on above: Order Comment: Pneum othorax Performed By: #### 4 1000, 30188, 03123 ####[facility] PHOSPHORUS BLOODon Phosphate [Mass/Vol] 3.5 mg/dL Normal 2.5-5.0 The [facility] Comment on above: Order Comment: Pneum othorax Performed By: #### 4 1000, [id number], [id number] ####[facility] POC GLUCOSE LABon 07-16-2021 Glucose [Mass/Vol] 118 mg/dL High 70-[address] [facility] Comment on above: Performed By: #### 8 [id number] #### [facility] [address] [place], [place] [id number] [place] [address] PORTABLE CHEST 1 VIEWon 12- PORTABLE CHEST [address] [facility] Department of Radiology [address] [place] [id number] Patient Name: ISRAEL DEVINE : 1950 Sex: M Age: Race: White Pt. Location: [place] [address] Patient Status: I Ordered Date: 07/16/2021 1:55:00 PM Completed Date: 07/16/2021 02:23 PM Requesting Provider: THA PARKINSON Attending Provider: SINGH DOTSON Report Copy To: Signs & Symptoms: Post Chest Tube Removal History: Comments: follow up Pneumothorax Exam: PORTABLE CHEST 1 VIEW PORTABLE CHEST 1 VIEW 07/16/2021 2:23 PM CLINICAL INDICATIONS: Post Chest Tube Removal TECHNOLOGIST COMMENTS: s/p chest tube removal QUESTION FOR THE RADIOLOGIST: follow up Pneumothorax PROTOCOL: AP(PA) view was obtained. COMPARISON: A film from earlier in the day Impression: 1. Right chest tubes have been removed. The lungs are clear. There are no effusions or pneumothorax. Electronically signed: Cece Kim. Transcribed by: [email or web address], User Resident: Electronically Signed by: CECE KIM @ 07/16/2021 02:28 PM Normal [facility] Comment on above: Order Comment: The A ptima SARS-CoV-2 assay is a nucleic acid amplification test intended for the qualitative detection of RNA from SARS-CoV-2 isolated and purified from nasopharyngeal (SUPERVISOR COIL WINDING),oropharyngeal (OP), nasal swab, sputum, and bronchoalveolar lavage (BAL) specimens from patients with signs and symptoms of infection who are suspected of COVID-19. Results are for the identification of SARS-CoV-2 RNA. The SARS-CoV-2 RNA is generally detectable during the acute phase of infection. The Aptima SARS-CoV-2 Assay on the [place] [employer] [place] system is intended for use by laboratory personnel specifically instructed and trained in the operation of the [place] and [place] Fusion system. The Aptima SARS-CoV-2 assay is only for use under the Food and Drug Administration Emergency Use Authorization. Testing is limited to laboratories certified under the Clinical Laboratory Improvement Amendments of 1988 (CLIA), 42 U.S.C. ???263a, to perform high complexity tests. Not Detected: Not detected does not preclude SARS-CoV-2 infection and should not be used as the sole basis for patient management decisions. Not detected results must be combined with clinical observations, patient history, and epidemiological information. PORTABLE CHEST [address] [facility] Department of Radiology [address] [place] [id number] Patient Name: ISRAEL DEVINE : 1950 Sex: M Age: Race: White Pt. Location: [place] [address] Patient Status: I Ordered Date: 07/16/2021 5:00:00 AM Completed Date: 07/16/2021 06:52 AM Requesting Provider: THA PARKINSON Attending Provider: SINGH DOTSON Report Copy To: Signs & Symptoms: Post OP History: Comments: Pneumothorax Exam: PORTABLE CHEST 1 VIEW PORTABLE CHEST 1 VIEW 07/16/2021 6:52 AM CLINICAL INDICATIONS: Post OP TECHNOLOGIST COMMENTS: post op right side chest tube QUESTION FOR THE RADIOLOGIST: Pneumothorax PROTOCOL: AP(PA) view was obtained. COMPARISON: 07/15/2021 Impression: 1. Tubes and lines are stable. I see no definite pneumothorax. There are no significant infiltrates. I suspect a tiny left pleural effusion. Electronically signed: Cece Kim. Transcribed by: [email or web address], User Resident: Electronically Signed by: CECE KIM @ 07/16/2021 07:13 AM Normal [facility] Comment on above: Order Comment: Pneum othorax BASIC METABOLIC PANELon - Calcium [Mass/Vol] 7.6 mg/dL Low 8.6-10.[address] [facility] Comment on above: Order Comment: No: D o not add to previous draw Performed By: #### 3 0965 #### [facility] [address] [place] [address], [facility] Chloride [Moles/Vol] 98 mmol/L Normal 98-[address] [facility] Comment on above: Order Comment: No: D o not add to previous draw Performed By: #### 3 0965 #### [facility] [address] [place] [address], [place] CO2 [Moles/Vol] 28 mmol/L Normal 21-[address] [facility] Comment on above: Order Comment: No: D o not add to previous draw Performed By: #### 3 0965 #### [facility] [address] [place] [address], [facility] Creatinine [Mass/Vol] 0.78 mg/dL Normal 0.70-1.[address] [facility] Comment on above: Order Comment: No: D o not add to previous draw Performed By: #### 3 0965 #### [facility] [address] [place] [address], [place] GFR/1.73 sq M.predicted among blacks MDRD (S/P/Bld) [Vol rate/Area] mL/min/{1.73_m2} Normal >[address] [facility] Comment on above: Order Comment: No: D o not add to previous draw Result Comment: Calc ulation may not be valid for patients over 70 years Performed By: #### 3 0965 #### [facility] [address] [place] [address], [place] GFR/1.73 sq M.predicted among non-blacks MDRD (S/P/Bld) [Vol rate/Area] mL/min/{1.73_m2} Normal >[address] [facility] Comment on above: Order Comment: No: D o not add to previous draw Result Comment: Calc ulation may not be valid for patients over 70 years Performed By: #### 3 0965 #### [facility] [address] [place] [address], [place] Glucose [Mass/Vol] 123 mg/dL High 70-[address] [facility] Comment on above: Order Comment: No: D o not add to previous draw Performed By: #### 3 0965 #### [facility] [address] [place] [address], [place] Potassium [Moles/Vol] 4.4 mmol/L Normal 3.5-5.[address] [facility] Comment on above: Order Comment: No: D o not add to previous draw Performed By: #### 3 0965 #### [facility] [address] [place] [address], [place] Sodium [Moles/Vol] 132 mmol/L Low 136-[address] [facility] Comment on above: Order Comment: No: D o not add to previous draw Performed By: #### 3 0965 #### [facility] [address] [place] [address], [place] Urea nitrogen [Mass/Vol] 23 mg/dL Normal 7-[address] [facility] Comment on above: Order Comment: No: D o not add to previous draw Performed By: #### 3 0965 #### [facility] [address] [place] [address], [place] CBC COMPLETE BLOOD COUNTon 1 2-18-2021 Erythrocyte distribution width (RBC) [Ratio] 12.6 % Normal 11.5-15.[address] [facility] Comment on above: Order Comment: No: D o not add to previous draw Performed By: #### 8 [id number] #### [facility] [address] [place] [address], [place] Hematocrit (Bld) [Volume fraction] 25.3 % Low 39.0-50.[address] [facility] Comment on above: Order Comment: No: D o not add to previous draw Performed By: #### 8 [id number] #### [facility] [address] [place] [address], [facility] Hemoglobin (Bld) [Mass/Vol] 8.2 g/dL Low 13.0-17.[address] [facility] Comment on above: Order Comment: No: D o not add to previous draw Performed By: #### 8 [id number] #### [facility] [address] [place] [address], [place] IMM PLATELET FRAC 3.4 % Normal 0.8-6.[address] [facility] Comment on above: Order Comment: No: D o not add to previous draw Performed By: #### 8 [id number] #### [facility] [address] [place] [address], [place] MCH (RBC) [Entitic mass] 30.0 pg Normal 27.0-33.[address] [facility] Comment on above: Order Comment: No: D o not add to previous draw Performed By: #### 8 [id number] #### [facility] [address] [place] [address], [place] MCHC (RBC) [Mass/Vol] 32.4 g/dL Normal 32.0-35.[address] [facility] Comment on above: Order Comment: No: D o not add to previous draw Performed By: #### 8 [id number] #### [facility] [address] [place] [address], [place] MCV (RBC) [Entitic vol] 92.7 fL Normal 82.0-98.[address] [facility] Comment on above: Order Comment: No: D o not add to previous draw Performed By: #### 8 [id number] #### [facility] [address] [place] [address], [facility] Nucleated RBC/100 WBC (Bld) [Ratio] 0 % Normal 0-[address] [facility] Comment on above: Order Comment: No: D o not add to previous draw Performed By: #### 8 [id number] #### [facility] [address] [place] [address], [facility] PLAT CNT 125 10*3/uL Low 150-[address] [facility] Comment on above: Order Comment: No: D o not add to previous draw Performed By: #### 8 [id number] #### [facility] [address] [place] [id number], [facility] RBC (Bld) [#/Vol] 2.73 10*6/uL Low 4.20-5.[address] [facility] Comment on above: Order Comment: No: D o not add to previous draw Performed By: #### 8 [id number] #### [facility] [address] [place] [id number], [facility] WBC (Bld) [#/Vol] 9.34 10*3/uL Normal 4.00-10.[address] [facility] Comment on above: Order Comment: No: D o not add to previous draw Performed By: #### 8 [id number] #### [facility] [address] [place] [id number], [facility] MAGNESIUM BLOODon 07-15-2021 Magnesium [Mass/Vol] 2.0 mg/dL Normal 1.9-2.[address] [facility] Comment on above: Order Comment: No: D o not add to previous draw Performed By: #### 3 0965 #### [facility] [address] [place] [id number], [facility] PHOSPHORUS BLOODon Phosphate [Mass/Vol] 3.4 mg/dL Normal 2.5-5.[address] [facility] Comment on above: Performed By: #### 3 0965 #### [facility] [address] [facility] [place] [address], [facility] POC GLUCOSE LABon 07-15-2021 Glucose [Mass/Vol] 127 mg/dL High 70-[address] [facility] Comment on above: Performed By: #### 3 1595 #### [facility] [address] [facility] [place] [address], [facility] Glucose [Mass/Vol] 146 mg/dL High 70-[address] [facility] Comment on above: Performed By: #### 5 0608 #### [facility] [address] [facility] [place] [address], [facility] PORTABLE CHEST 1 VIEWon 06-28 PORTABLE CHEST [address] [facility] Department of Radiology [address] [place], [place] [id number] Patient Name: ISRAEL DEVINE : 1950 Sex: M Age: Race: White Pt. Location: [id number] Patient Status: I Ordered Date: 07/15/2021 5:00:00 AM Completed Date: 07/15/2021 07:48 AM Requesting Provider: THA PARKINSON Attending Provider: SINGH DOTSON Report Copy To: Signs & Symptoms: Post OP History: Comments: Pneumothorax Exam: PORTABLE CHEST 1 VIEW PORTABLE CHEST 1 VIEW 07/15/2021 7:48 AM CLINICAL INDICATIONS: Post OP TECHNOLOGIST COMMENTS: follow up chest tube shortness of breath QUESTION FOR THE RADIOLOGIST: Pneumothorax PROTOCOL: AP(PA) view was obtained. COMPARISON: 07/14/2021 FINDINGS: Central line stable in position. There is some lower lobe atelectasis. No pneumothorax. Heart size stable. Vasculature stable. Overall is been interval improvement. IMPRESSION: Gradual interval improvement Electronically signed: Kumar Ross. Transcribed by: [email or web address], User Resident: Electronically Signed by: KUMAR ROSS @ 07/16/2021 04:09 PM Normal [facility] Comment on above: Order Comment: The A ptima SARS-CoV-2 assay is a nucleic acid amplification test intended for the qualitative detection of RNA from SARS-CoV-2 isolated and purified from nasopharyngeal (SUPERVISOR COIL WINDING),oropharyngeal (OP), nasal swab, sputum, and bronchoalveolar lavage (BAL) specimens from patients with signs and symptoms of infection who are suspected of COVID-19. Results are for the identification of SARS-CoV-2 RNA. The SARS-CoV-2 RNA is generally detectable during the acute phase of infection. The Aptima SARS-CoV-2 Assay on the [place] [employer] [place] [employer] system is intended for use by laboratory personnel specifically instructed and trained in the operation of the [place] and [place] Fusion system. The Aptima SARS-CoV-2 assay is only for use under the Food and Drug Administration Emergency Use Authorization. Testing is limited to laboratories certified under the Clinical Laboratory Improvement Amendments of 1988 (CLIA), 42 U.S.C. ???263a, to perform high complexity tests. Not Detected: Not detected does not preclude SARS-CoV-2 infection and should not be used as the sole basis for patient management decisions. Not detected results must be combined with clinical observations, patient history, and epidemiological information. BASIC METABOLIC PANELon 12- Calcium [Mass/Vol] 8.0 mg/dL Low 8.6-10.3 [facility] Comment on above: Order Comment: No: D o not add to previous draw Performed By: #### 3 0965 #### [facility] [address] [place] [address], [place] Chloride [Moles/Vol] 101 mmol/L Normal 98-[address] [facility] Comment on above: Order Comment: No: D o not add to previous draw Performed By: #### 3 0965 #### [facility] [address] [place] [address], [place] CO2 [Moles/Vol] 24 mmol/L Normal 21-[address] [facility] Comment on above: Order Comment: No: D o not add to previous draw Performed By: #### 3 0965 #### [facility] [address] [place] [address], [place] Creatinine [Mass/Vol] 0.92 mg/dL Normal 0.70-1.[address] [facility] Comment on above: Order Comment: No: D o not add to previous draw Performed By: #### 3 0965 #### [facility] [address] [place] [address], [place] GFR/1.73 sq M.predicted among blacks MDRD (S/P/Bld) [Vol rate/Area] mL/min/{1.73_m2} Normal >[address] [facility] Comment on above: Order Comment: No: D o not add to previous draw Result Comment: Calc ulation may not be valid for patients over 70 years Performed By: #### 3 0965 #### [facility] [address] [place] [address], [place] GFR/1.73 sq M.predicted among non-blacks MDRD (S/P/Bld) [Vol rate/Area] mL/min/{1.73_m2} Normal >[address] [facility] Comment on above: Order Comment: No: D o not add to previous draw Result Comment: Calc ulation may not be valid for patients over 70 years Performed By: #### 3 0965 #### [facility] [address] [place] [address], [place] Glucose [Mass/Vol] 120 mg/dL High 70-[address] [facility] Comment on above: Order Comment: No: D o not add to previous draw Performed By: #### 3 0965 #### [facility] [address] [place] [address], [facility] Potassium [Moles/Vol] 4.2 mmol/L Normal 3.5-5.[address] [facility] Comment on above: Order Comment: No: D o not add to previous draw Performed By: #### 3 0965 #### [facility] [address] [place] [address], [facility] Sodium [Moles/Vol] 134 mmol/L Low 136-[address] [facility] Comment on above: Order Comment: No: D o not add to previous draw Performed By: #### 3 0965 #### [facility] [address] [place] [address], [facility] Urea nitrogen [Mass/Vol] 23 mg/dL Normal 7-[address] [facility] Comment on above: Order Comment: No: D o not add to previous draw Performed By: #### 3 0965 #### [facility] [address] [place] [address], [facility] CBC COMPLETE BLOOD COUNTon 09-14-2020 Erythrocyte distribution width (RBC) [Ratio] 12.7 % Normal 11.5-15.[address] [facility] Comment on above: Order Comment: No: D o not add to previous draw Performed By: #### 8 [id number] #### [facility] [address] [place] [address], [place] Hematocrit (Bld) [Volume fraction] 30.5 % Low 39.0-50.[address] [facility] Comment on above: Order Comment: No: D o not add to previous draw Performed By: #### 8 [id number] #### [facility] [address] [place] [address], [place] Hemoglobin (Bld) [Mass/Vol] 9.8 g/dL Low 13.0-17.[address] [facility] Comment on above: Order Comment: No: D o not add to previous draw Performed By: #### 8 [id number] #### [facility] [address] [facility] [address], [facility] MCH (RBC) [Entitic mass] 30.6 pg Normal 27.0-33.[address] [facility] Comment on above: Order Comment: No: D o not add to previous draw Performed By: #### 8 [id number] #### [facility] [address] [facility] [place] [address], [facility] MCHC (RBC) [Mass/Vol] 32.1 g/dL Normal 32.0-35.[address] [facility] Comment on above: Order Comment: No: D o not add to previous draw Performed By: #### 8 [id number] #### [facility] [address] [facility] [place] [address], [facility] MCV (RBC) [Entitic vol] 95.3 fL Normal 82.0-98.[address] [facility] Comment on above: Order Comment: No: D o not add to previous draw Performed By: #### 8 [id number] #### [facility] [address] [facility]. [address] Nucleated RBC/100 WBC (Bld) [Ratio] 0 % Normal 0-[address] [facility] Comment on above: Order Comment: No: D o not add to previous draw Performed By: #### 8 [id number] #### [facility] [address] [facility] [place] [address], [facility] PLAT CNT 110 10*3/uL Low 150-[address] [facility] Comment on above: Order Comment: No: D o not add to previous draw Performed By: #### 8 [id number] #### [facility] [address] [facility] [place] [address], [facility] RBC (Bld) [#/Vol] 3.20 10*6/uL Low 4.20-5.[address] [facility] Comment on above: Order Comment: No: D o not add to previous draw Performed By: #### 8 [id number] #### [facility] [address] [place] [address], [facility] WBC (Bld) [#/Vol] 11.71 10*3/uL High 4.00-10.[address] [facility] Comment on above: Order Comment: No: D o not add to previous draw Performed By: #### 8 [id number] #### [facility] [address] [place] [address], [facility] MAGNESIUM BLOODon 07-14-2021 Magnesium [Mass/Vol] 2.1 mg/dL Normal 1.9-2.[address] [facility] Comment on above: Order Comment: No: D o not add to previous draw Performed By: #### 3 0738 #### [facility] [address] [place] [address], [facility] PHOSPHORUS BLOODon Phosphate [Mass/Vol] 1.6 mg/dL Low 2.5-5.[address] [facility] Comment on above: Order Comment: No: D o not add to previous draw Performed By: #### 3 0738 #### [facility] [address] [place] [address], [facility] POC GLUCOSE LABon 07-14-2021 Glucose [Mass/Vol] 156 mg/dL High 70-[address] [facility] Comment on above: Performed By: #### 3 1595 #### [facility] [address] [place] [address], [place] Glucose [Mass/Vol] 158 mg/dL High 70-[address] [facility] Comment on above: Performed By: #### 3 1595 #### [facility] [address] [place] [address], [place] Glucose [Mass/Vol] 149 mg/dL High 70-[address] [facility] Comment on above: Performed By: #### 5 0608 #### [facility] [address], [facility] Glucose [Mass/Vol] 156 mg/dL High 70-[address] [facility] Comment on above: Performed By: #### 5 0608 #### [address] [address], [facility] PORTABLE CHEST 1 VIEWon 06-28 PORTABLE CHEST [address] [facility] Department of Radiology [address] [place] [id number] Patient Name: ISRAEL DEVINE : 1950 Sex: M Age: Race: White Pt. Location: [place] [address] Patient Status: I Ordered Date: 07/14/2021 5:00:00 AM Completed Date: 07/14/2021 07:09 AM Requesting Provider: THA PARKINSON Attending Provider: SINGH DOTSON Report Copy To: Signs & Symptoms: Post OP History: Comments: evaluate for Pneumothorax Exam: PORTABLE CHEST 1 VIEW PORTABLE CHEST 1 VIEW 07/14/2021 7:09 AM CLINICAL INDICATIONS: Post OP TECHNOLOGIST COMMENTS: post op shortness of breath QUESTION FOR THE RADIOLOGIST: evaluate for Pneumothorax PROTOCOL: AP(PA) view was obtained. COMPARISON: July 13, 2021. FINDINGS: Right-sided jugular line and right-sided chest tubes remain. The heart remains enlarged. Bilateral pleural effusions remain. Previously described atelectasis in right base may be somewhat increased. No pneumothorax. IMPRESSION: No pneumothorax with bilateral pleural effusions and increasing atelectasis in the right base. Electronically signed: Gretta Perkins. Transcribed by: [email or web address], User Resident: Electronically Signed by: GRETTA PREKINS @ 07/14/2021 07:18 AM Normal [facility] Comment on above: Order Comment: evalu ate for Pneumothorax POTASSIUM BLOODon 07-14-2021 Potassium [Moles/Vol] 3.8 mmol/L Normal 3.5-5.[address] [facility] Comment on above: Order Comment: Pneum othorax Performed By: #### 4 1406 ####[facility] [place] [address], [facility] APTTon 07-13-2021 aPTT Coag (Bld) [Time] 34.0 s Normal 25.0-35.[address] [facility] Comment on above: Order Comment: No: D o not add to previous draw Result Comment: ALL RESULTS MUST BE INTERPRETED WITH RESPECT TO BLOOD DRAWING ARTIFACT OR DILUTION ERROR OF ANTICOAGULANT AT THE TIME OF SAMPLING. THE APTT SHOULD NOT BE USED TO MONITOR UNFRACTIONATED HEPARIN THERAPY, THIS LABORATORY NO LONGER HAS AN ESTABLISHED THERAPEUTIC RANGE BASED ON THE APTT. IT IS RECOMMENDED THAT THE [facility] - HEPARIN ASSAY (ANTI-XA ACTIVITY) BE USED FOR THIS PURPOSE. Performed By: #### 5 0608 #### [facility] [address] [place] [address], [facility] ARTERIAL BLOOD GAS WITH ICAo n 07-13-2021 BASE EXCESS -1 mmol/L Normal -2-[address] [facility] Comment on above: Performed By: #### 8 [id number] #### [facility] [address] [place] [address], [place] [employer] NASAL CANNULA Normal [facility] Comment on above: Performed By: #### 8 [id number] #### [facility] [address] [place] [address], [place] HCO3 (Bld) [Moles/Vol] 24 mmol/L Normal 21-[address] [facility] Comment on above: Performed By: #### 8 [id number] #### [facility] [address] [place] [address], [place] IONIZED CALCIUM 1.17 mmol/L Normal 1.13-1.[address] [facility] Comment on above: Performed By: #### 8 [id number] #### [facility] [address] [place] [address], [place] LPM 2.0 LPM Normal [facility] Comment on above: Performed By: #### [id number] #### [facility] [address] [place] [address], [place] Oxygen (Bld) [Partial pressure] 96 mm[Hg] Normal 83-[address] [facility] Comment on above: Performed By: #### 8 [id number] #### [facility] [address] [place] [address], [place] Oxygen saturation in Blood 96.5 % Normal 94.0-97.[address] [facility] Comment on above: Performed By: #### 8 [id number] #### [facility] [address] [place] [address], [place] PCO2 38 mmHg Normal 35-[address] [facility] Comment on above: Performed By: #### 8 [id number] #### [facility] [address] [place] [address], [place] pH (Bld) 7.40 [pH] Normal 7.35-7.[address] [facility] Comment on above: Performed By: #### 8 [id number] #### [facility] [address] [place] [address], [place] BASIC METABOLIC PANELon 12 Calcium [Mass/Vol] 8.1 mg/dL Low 8.6-10.[address] [facility] Comment on above: Order Comment: No: D o not add to previous draw Performed By: #### 5 [id number] #### [facility] [address] [place] [address], [place] Chloride [Moles/Vol] 108 mmol/L High 98-[address] [facility] Comment on above: Order Comment: No: D o not add to previous draw Performed By: #### 5 [id number] #### [facility] [address] [place] [address], [place] CO2 [Moles/Vol] 24 mmol/L Normal 21-[address] [facility] Comment on above: Order Comment: No: D o not add to previous draw Performed By: #### 5 [id number] #### [facility] [address] [place] [address], [place] Creatinine [Mass/Vol] 1.00 mg/dL Normal 0.70-1.[address] [facility] Comment on above: Order Comment: No: D o not add to previous draw Performed By: #### 5 [id number] #### [facility] [address] [place] [address], [facility] GFR/1.73 sq M.predicted among blacks MDRD (S/P/Bld) [Vol rate/Area] mL/min/{1.73_m2} Normal >[address] [facility] Comment on above: Order Comment: No: D o not add to previous draw Result Comment: Calc ulation may not be valid for patients over 70 years Performed By: #### 5 [id number] #### [facility] [address] [place] [address], [place] GFR/1.73 sq M.predicted among non-blacks MDRD (S/P/Bld) [Vol rate/Area] mL/min/{1.73_m2} Normal >[address] [facility] Comment on above: Order Comment: No: D o not add to previous draw Result Comment: Calc ulation may not be valid for patients over 70 years Performed By: #### 5 [id number] #### [facility] [address] [place] [address], [place] Glucose [Mass/Vol] 118 mg/dL High 70-[address] [facility] Comment on above: Order Comment: No: D o not add to previous draw Performed By: #### 5 [id number] #### [facility] [address] [place] [address], [facility] Potassium [Moles/Vol] 4.3 mmol/L Normal 3.5-5.[address] [facility] Comment on above: Order Comment: No: D o not add to previous draw Performed By: #### 5 [id number] #### [facility] [address] [place] [address], [place] Sodium [Moles/Vol] 139 mmol/L Normal 136-[address] [facility] Comment on above: Order Comment: No: D o not add to previous draw Performed By: #### 5 [id number] #### [facility] [address] [place] [address], [place] Urea nitrogen [Mass/Vol] 20 mg/dL Normal 7-[address] [facility] Comment on above: Order Comment: No: D o not add to previous draw Performed By: #### 5 [id number] #### [facility] [address] [place] [address], [facility] CBC COMPLETE BLOOD COUNTon 09-13-2020 Erythrocyte distribution width (RBC) [Ratio] 12.8 % Normal 11.5-15.[address] [facility] Comment on above: Order Comment: No: D o not add to previous draw Performed By: #### 8 [id number] #### [facility] [address] [place] [address], [facility] Hematocrit (Bld) [Volume fraction] 30.3 % Low 39.0-50.[address] [facility] Comment on above: Order Comment: No: D o not add to previous draw Performed By: #### 8 [id number] #### [facility] [address] [place] [address], [place] Hemoglobin (Bld) [Mass/Vol] 10.1 g/dL Low 13.0-17.[address] [facility] Comment on above: Order Comment: No: D o not add to previous draw Performed By: #### 8 [id number] #### [facility] [address] [place] [address], [facility] MCH (RBC) [Entitic mass] 30.6 pg Normal 27.0-33.[address] [facility] Comment on above: Order Comment: No: D o not add to previous draw Performed By: #### 8 [id number] #### [facility] [address] [place] [id number], [facility] MCHC (RBC) [Mass/Vol] 33.3 g/dL Normal 32.0-35.[address] [facility] Comment on above: Order Comment: No: D o not add to previous draw Performed By: #### 8 [id number] #### [facility] [address] [place] [id number], [facility] MCV (RBC) [Entitic vol] 91.8 fL Normal 82.0-98.[address] [facility] Comment on above: Order Comment: No: D o not add to previous draw Performed By: #### 8 [id number] #### [facility] [address] [place] [address], [facility] Nucleated RBC/100 WBC (Bld) [Ratio] 0 % Normal 0-[address] [facility] Comment on above: Order Comment: No: D o not add to previous draw Performed By: #### 8 [id number] #### [facility] [address] [place] [id number], [facility] PLAT CNT 152 10*3/uL Normal 150-[address] [facility] Comment on above: Order Comment: No: D o not add to previous draw Performed By: #### 8 [id number] #### [facility] [address] [place] [id number], [facility] RBC (Bld) [#/Vol] 3.30 10*6/uL Low 4.20-5.[address] [facility] Comment on above: Order Comment: No: D o not add to previous draw Performed By: #### 8 [id number] #### [facility] [address] WBC (Bld) [#/Vol] 10.66 10*3/uL High 4.00-10.[address] [facility] Comment on above: Order Comment: No: D o not add to previous draw Performed By: #### 8 [id number] #### [facility] [address] LACTATE BLOODon 07-13-2021 Lactate [Moles/Vol] 1.0 mmol/L Normal .5-2.[address] [facility] Comment on above: Order Comment: Pneum othorax Performed By: #### 1 0054 ####[facility] MAGNESIUM BLOODon 07-13-2021 Magnesium [Mass/Vol] 2.2 mg/dL Normal 1.9-2.[address] [facility] Comment on above: Order Comment: No: D o not add to previous draw Performed By: #### 5 [id number] #### [facility] [address] Operative Reporton Operative Report MR#: [id number] [facility] Pt. Name: Israel Devine Room #: KHUSHBU [id number] Discharge Date: Birthdate: 1950 OPERATIVE REPORT DATE OF SURGERY: 07/12/2021 SURGEON: Singh Dotson MD PREOPERATIVE DIAGNOSES: Severe aortic insufficiency, moderate aortic stenosis, and persistent atrial fibrillation. POSTOPERATIVE DIAGNOSES: Severe aortic insufficiency, moderate aortic stenosis, and persistent atrial fibrillation. OPERATION: 1. Minimally invasive aortic valve replacement with 27 mm INSPIRIS pericardial valve. 2. Extended left atrial CryoMaze procedure. 3. Exclusion of left atrial appendage with 45 mm AtriClip device. 4. Independent interpretation of transesophageal echocardiogram. CANNON PINION ADJUSTER: Mason. ANESTHESIA: General with endotracheal intubation. ANESTHESIOLOGIST: Dr. Álvarez. CARDIOPULMONARY BYPASS TIME: 137 minutes. CROSS-CLAMP TIME: 86 minutes. INDICATIONS: This is a 71-year-old male with severe in-situ aortic insufficiency, moderate aortic stenosis, and atrial fibrillation, was getting increasingly symptomatic shortness of breath. The patient was recommended the above procedure. PROCEDURE IN DETAIL: The patient was brought to the operating room, and prepped and draped in the routine fashion. There was slight elevation of the right chest. ANTONIO was done, showed severe aortic insufficiency, moderate aortic stenosis, mild mitral and tricuspid regurgitation, good ventricular function. Surgery was started in the right groin, where an incision was made and femoral artery and vein were dissected out. The patient was heparinized and femoral artery and vein were cannulated with the tip of the venous cannula in the right atrium. This was done under ANTONIO guidance. An incision was made in the right chest above the nipple and chest was entered through the 3rd intercostal space. At this time, cardiopulmonary bypass was initiated and lungs were deflated. Pericardium was opened. CO2 insufflation was begun through the chest wall. Retrograde cardioplegia catheter was placed and a transthoracic Mauro clamp was applied. Cold blood retrograde cardioplegia was given, but coronary sinus was not pressurized. It was clear that the catheter had slipped out of the coronary sinus. Therefore, aorta was opened and direct coronary ostial delivery of cardioplegia was made. A total of 1200 mL was given through the left coronary artery and 600 mL in the right coronary artery. We had a good standstill. Left atrium was entered through the interatrial groove and extended left atrial CryoMaze was performed. All 4 pulmonary veins were isolated as an island and another lesion was constructed from left inferior pulmonary vein to the P3 region of the mitral anulus. All ablations were 2 minutes in duration. LV vent was left across the mitral valve. The left atrium was closed with 3-0 Prolene pledgeted stitches. A 45 mm AtriClip device was deployed to the base of the left atrial appendage through the transverse sinus. Another aortic valve was exposed and excised. The leaflets were excised. The left and right coronary leaflets were fused. They were severely calcified. The anulus was rather spared. The leaflets were excised and a 27 mm was the appropriate size of the valve. This was applied in a supra-annular position of 2-0 Ethibond pledgeted stitches using cor-knots. The valve seated quite well. Atriotomy was closed with 4-0 Prolene pledgeted stitches in 2 layers. Next, the patient was placed in a Trendelenburg position. Left atrium was dilated manually de-aired as the cross-clamp was released, and aortic root and LV vents were turned on. Ventricular and atrial pacing wires were placed. The patient was cardioverted once and then regained sinus spontaneous activity. After adequate de-airing had been done, the LV vent was removed and the left atrium was closed. Aortic root vent was also removed. Atriotomy site was secured with the cor knot. The patient was weaned off for cardiopulmonary bypass. Protamine was given. Venous and aortic cannula were removed. Edmond drain was placed in the pericardium and then the pleural cavity. Chest was closed with #2 pericostal, #1 Vicryl, fascial 2-0 Vicryl, 4-0 Monocryl stitches. The patient tolerated the procedure well, was taken to the ICU in stable, but critical condition. Completed ANTONIO showed no paravalvular leak, excellent ventricular function, and patient was in sinus rhythm. Electronically Signed by: Singh Dotson MD 07/13/2021 04:30 P Singh Dotson MD Date Dict: 07/12/2021/02:13 P/Singh Dotson MD Date Trans: 07/12/2021 11:51 P/tangela [id number] cc: Deb Klein M.D. [address] [id number] [facility] PHOSPHORUS BLOODon Phosphate [Mass/Vol] 3.0 mg/dL Normal 2.5-5.[address] [facility] Comment on above: Order Comment: No: D o not add to previous draw Performed By: #### 5 [id number] #### [facility] [address] [place] [address], [facility] POC GLUCOSE LABon 07-13-2021 Glucose [Mass/Vol] 146 mg/dL High 70-[address] [facility] Comment on above: Performed By: #### 5 0608 #### [facility] [address] [place] [address], [place] Glucose [Mass/Vol] 132 mg/dL High 70-[address] [facility] Comment on above: Performed By: #### 8 [id number] #### [facility] [address] [place] [address], [place] Glucose [Mass/Vol] 88 mg/dL Normal 70-[address] [facility] Comment on above: Performed By: #### 5 0608 #### [facility] [address] [place] [address], [place] Glucose [Mass/Vol] 96 mg/dL Normal 70-[address] [facility] Comment on above: Performed By: #### 5 0608 #### [facility] [address] [place] [address], [place] Glucose [Mass/Vol] 125 mg/dL High 70-[address] [facility] Comment on above: Performed By: #### 8 [id number] #### [facility] [address] [place] [address], [place] Glucose [Mass/Vol] 121 mg/dL High 70-[address] [facility] Comment on above: Performed By: #### 3 1595 #### [facility] [address] [place] [address], [place] Glucose [Mass/Vol] 133 mg/dL High 70-[address] [facility] Comment on above: Performed By: #### 5 0608 #### [facility] [address] [place] [address], [place] Glucose [Mass/Vol] 98 mg/dL Normal 70-[address] [facility] Comment on above: Performed By: #### 8 [id number] #### [facility] [address] [place] [address], [place] Glucose [Mass/Vol] 90 mg/dL Normal 70-[address] [facility] Comment on above: Performed By: #### 5 0608 #### [address] PORTABLE CHEST 1 VIEWon 06-28 PORTABLE CHEST [address] [facility] Department of Radiology [address] [place] [address] [place] [id number] Patient Name: ISRAEL DEVINE : 1950 Sex: M Age: Race: White Pt. Location: [place] [address] Patient Status: I Ordered Date: 07/13/2021 7:00:00 AM Completed Date: 07/13/2021 07:34 AM Requesting Provider: KAYLA WING Attending Provider: SINGH DOTSON Report Copy To: Signs & Symptoms: Post CABG History: Comments: evaluate Chest Tube Position Exam: PORTABLE CHEST 1 VIEW PORTABLE CHEST 1 VIEW 07/13/2021 7:34 AM CLINICAL INDICATIONS: Post CABG TECHNOLOGIST COMMENTS: evaluate Chest Tube Position QUESTION FOR THE RADIOLOGIST: evaluate Chest Tube Position PROTOCOL: AP(PA) view was obtained. COMPARISON: July 12, 2021. FINDINGS: The endotracheal tube and NG tube have been removed, right-sided jugular line and multiple right-sided chest tubes remain. No pneumothorax. Small bilateral pleural effusions are suggested. Atelectasis in right base appears increased. The heart remains enlarged. IMPRESSION: Satisfactory positioning of right chest tubes. Small bilateral pleural effusions and increasing atelectasis in right base. Electronically signed: Gretta Perkins. Transcribed by: [email or web address], User Resident: Electronically Signed by: GRETTA PERKINSBS @ 07/13/2021 07:44 AM Normal [facility] Comment on above: Order Comment: The A ptima SARS-CoV-2 assay is a nucleic acid amplification test intended for the qualitative detection of RNA from SARS-CoV-2 isolated and purified from nasopharyngeal (SUPERVISOR COIL WINDING),oropharyngeal (OP), nasal swab, sputum, and bronchoalveolar lavage (BAL) specimens from patients with signs and symptoms of infection who are suspected of COVID-19. Results are for the identification of SARS-CoV-2 RNA. The SARS-CoV-2 RNA is generally detectable during the acute phase of infection. The Aptima SARS-CoV-2 Assay on the Astonish Results and Astonish Results Fusion system is intended for use by laboratory personnel specifically instructed and trained in the operation of the [place] and [place] Fusion system. The Aptima SARS-CoV-2 assay is only for use under the Food and Drug Administration Emergency Use Authorization. Testing is limited to laboratories certified under the Clinical Laboratory Improvement Amendments of 1988 (CLIA), 42 U.S.C. ???263a, to perform high complexity tests. Not Detected: Not detected does not preclude SARS-CoV-2 infection and should not be used as the sole basis for patient management decisions. Not detected results must be combined with clinical observations, patient history, and epidemiological information. PROTHROMBIN TIMEon 1 INR Coag (PPP) [Relative time] 1.28 {INR} High 0.91-1.[address] [facility] Comment on above: Order Comment: No: D o not add to previous draw Result Comment: ACCC P RECOMMENDED INR FOR WARFARIN THERAPY ----- ------- CONDITION INR PROPHYLAXIS OF VENOUS THROMBOSIS 2-3 (HIGH-RISK SURGERY) TREATMENT OF VENOUS THROMBOSIS 2-3 TREATMENT OF PULMONARY EMBOLISM 2-3 PREVENTION OF SYSTEMIC EMBOLISM: 2-3 ACUTE MYOCARDIAL INFARCTION TISSUE HEART VALVES VALVULAR HEART DISEASE ATRIAL FIBRILLATION RECURRENT SYSTEMIC EMBOLISM MECHANICAL HEART VALVE 2.5-3.5 FROM: ORAL ANTICOAGULANTS. MECHANISM OF ACTION, CLINICAL EFFECTIVENESS, AND OPTIMAL THERAPEUTIC RANGE. CHEST 1995;108:231S-246S. Performed By: #### 5 [id number] #### [facility] [address] [place] [address], [facility] PT Coag (PPP) [Time] 16.0 s High 12.3-14.[address] [facility] Comment on above: Order Comment: No: D o not add to previous draw Result Comment: ALL RESULTS MUST BE INTERPRETED WITH RESPECT TO BLOOD DRAWING ARTIFACT OR DILUTION ERROR OF ANTICOAGULANT AT THE TIME OF SAMPLING. Performed By: #### 5 [id number] #### [facility] [address] [place] [address], [facility] ACTIVATED CLOTTING TIMEon ACTIVATED CLOTTING TIME 126 sec Normal 82-[address] [facility] Comment on above: Performed By: #### 3 1792 #### [facility] [address] [place] [address], [facility] ACTIVATED CLOTTING TIME 120 sec Normal 82-[address] [facility] Comment on above: Performed By: #### 3 1595 #### [facility] [address] [place] [address], [facility] ACTIVATED CLOTTING TIME 603 sec High 82-[address] [facility] Comment on above: Performed By: #### 3 1595 #### [facility] [address] [place] [address], [place] ACTIVATED CLOTTING TIME 603 sec High 82-[address] [facility] Comment on above: Performed By: #### 3 1595 #### [facility] [address] [place] [address], [place] ACTIVATED CLOTTING TIME 464 sec High 82-[address] [facility] Comment on above: Performed By: #### 8 [id number] #### [facility] [address] [place] [address], [facility] ACTIVATED CLOTTING TIME 664 sec High 82-[address] [facility] Comment on above: Performed By: #### 8 [id number] #### [facility] [address] [place] [address], [place] ACTIVATED CLOTTING TIME 609 sec High 82-[address] [facility] Comment on above: Performed By: #### 8 [id number] #### [facility] [address] [place] [address], [facility] ACTIVATED CLOTTING TIME 144 sec Normal 82-[address] [facility] Comment on above: Performed By: #### 8 [id number] #### [facility] [address] [place] [address], [facility] APTTon 07-12-2021 aPTT Coag (Bld) [Time] 47.7 s High 25.0-35.[address] [facility] Comment on above: Order Comment: No: D o not add to previous draw Result Comment: ALL RESULTS MUST BE INTERPRETED WITH RESPECT TO BLOOD DRAWING ARTIFACT OR DILUTION ERROR OF ANTICOAGULANT AT THE TIME OF SAMPLING. THE APTT SHOULD NOT BE USED TO MONITOR UNFRACTIONATED HEPARIN THERAPY, THIS LABORATORY NO LONGER HAS AN ESTABLISHED THERAPEUTIC RANGE BASED ON THE APTT. IT IS RECOMMENDED THAT THE UFH - HEPARIN ASSAY (ANTI-XA ACTIVITY) BE USED FOR THIS PURPOSE. Performed By: #### 5 [id number] #### [facility] [address] [place] [address], [facility] aPTT Coag (Bld) [Time] 35.9 s High 25.0-35.[address] [facility] Comment on above: Result Comment: ALL RESULTS MUST BE INTERPRETED WITH RESPECT TO BLOOD DRAWING ARTIFACT OR DILUTION ERROR OF ANTICOAGULANT AT THE TIME OF SAMPLING. THE APTT SHOULD NOT BE USED TO MONITOR UNFRACTIONATED HEPARIN THERAPY, THIS LABORATORY NO LONGER HAS AN ESTABLISHED THERAPEUTIC RANGE BASED ON THE APTT. IT IS RECOMMENDED THAT THE UFH - HEPARIN ASSAY (ANTI-XA ACTIVITY) BE USED FOR THIS PURPOSE. Performed By: #### 5 [id number] #### [facility] [address] [place] [address], [place] ARTERIAL BLOOD GAS WITH ICAo n 07-12-2021 BASE EXCESS -3 mmol/L Low -2-[address] [facility] Comment on above: Performed By: #### 3 0738 #### [facility] [address] [place] [address], [place] HCO3 (Bld) [Moles/Vol] 23 mmol/L Normal 21-[address] [facility] Comment on above: Performed By: #### 3 0738 #### [facility] [address] [place] [address], [place] MIN VOLUME 14.[address] [facility] Comment on above: Performed By: #### 3 0738 #### [facility] [address] [place] [address], [place] MODALITY SIMV Normal [facility] Comment on above: Performed By: #### 3 0738 #### [facility] [address] [place] [address], [place] Oxygen (Bld) [Partial pressure] 120 mm[Hg] Critically high 83-[address] [facility] Comment on above: Performed By: #### 3 0738 #### [facility] [address] [place] [address], [place] Oxygen saturation in Blood 98.1 % High 94.0-97.[address] [facility] Comment on above: Performed By: #### 3 0738 #### [facility] [address] [place] [address], [place] PCO2 44 mmHg Normal 35-[address] [facility] Comment on above: Performed By: #### 3 0738 #### [facility] [address] [place] [address], [place] PF RATIO 240 mmHg Normal [facility] Comment on above: Performed By: #### 3 0738 #### [facility] [address] [place] [address], [facility] pH (Bld) 7.33 [pH] Low 7.35-7.[address] [facility] Comment on above: Performed By: #### 3 0738 #### [facility] [address] [place] [address], [facility] Respiratory rate 18 /min Normal [facility] Comment on above: Performed By: #### 3 0738 #### [facility] [address] [place] [address], [facility] TIDAL VOLUME (VT) CC [address] [facility] Comment on above: Performed By: #### 3 0738 #### [facility] [address] [place] [address], [facility] BASE EXCESS -6 mmol/L Low -2-[address] [facility] Comment on above: Performed By: #### 3 0738 #### [facility] [address] [place] [address], [facility] DELIVERY SYSTEMS MV Normal [facility] Comment on above: Performed By: #### 3 0738 #### [facility] [address] [place] [address], [facility] FIO2 50 % Normal [facility] [facility] Comment on above: Performed By: #### 3 0738 #### [facility] [address] [place] [address], [facility] HCO3 (Bld) [Moles/Vol] 21 mmol/L Normal 21-[address] [facility] Comment on above: Performed By: #### 3 0738 #### [facility] [address] [place] [address], [facility] IONIZED CALCIUM 1.14 mmol/L Normal 1.13-1.[address] [facility] Comment on above: Performed By: #### 3 0738 #### [facility] [address] [place] [address], [facility] MIN VOLUME 6.[address] [facility] Comment on above: Performed By: #### 3 0738 #### [facility] [address] [place] [address], [place] MODALITY AC Normal [facility] Comment on above: Performed By: #### 3 0738 #### [facility] [address] [place] [address], [place] Oxygen (Bld) [Partial pressure] 90 mm[Hg] Normal 83-[address] [facility] Comment on above: Performed By: #### 3 0738 #### [facility] [address] [place] [address], [place] Oxygen saturation in Blood 95.8 % Normal 94.0-97.[address] [facility] Comment on above: Performed By: #### 3 0738 #### [facility] [address] [place] [address], [place] PCO2 46 mmHg High 35-[address] [facility] Comment on above: Performed By: #### 3 0738 #### [facility] [address] [place] [address], [place] PEEP 8.0 CMH20 Normal [facility] Comment on above: Performed By: #### 3 0738 #### [facility] [address] [place] [address], [place] PF RATIO 180 mmHg Normal [facility] Comment on above: Performed By: #### 3 0738 #### [facility] [address] [place] [address], [place] pH (Bld) 7.27 [pH] Low 7.35-7.[address] [facility] Comment on above: Performed By: #### 3 0738 #### [facility] [address] [place] [address], [place] PRESSURE SUPPORT [address] [facility] Comment on above: Performed By: #### 3 0738 #### [facility] [address] [place] [address], [place] Respiratory rate 14 /min Normal [facility] Comment on above: Performed By: #### 3 0738 #### [facility] [address] [place] [address], [place] TIDAL VOLUME (VT) CC [address] [facility] Comment on above: Performed By: #### 3 0738 #### [facility] [address] [place] [address], [place] IONIZED CALCIUM 1.06 mmol/L Low 1.12-1.[address] [facility] Comment on above: Performed By: #### 3 0738 #### [facility] [address] [place] [address], [place] Performed By: #### 8 5499 #### [facility] [address] [place] [address], [place] BASIC METABOLIC PANELon 06-28 Calcium [Mass/Vol] 8.8 mg/dL Normal 8.6-10.[address] [facility] Comment on above: Order Comment: No: D o not add to previous draw Performed By: #### 3 0965 #### [facility] [address] [place] [address], [place] Chloride [Moles/Vol] 110 mmol/L High 98-[address] [facility] Comment on above: Order Comment: No: D o not add to previous draw Performed By: #### 3 0965 #### [facility] [address] [place] [address], [place] CO2 [Moles/Vol] 24 mmol/L Normal 21-[address] [facility] Comment on above: Order Comment: No: D o not add to previous draw Performed By: #### 3 0965 #### [facility] [address] [place] [address], [place] Creatinine [Mass/Vol] 0.94 mg/dL Normal 0.70-1.[address] [facility] Comment on above: Order Comment: No: D o not add to previous draw Performed By: #### 3 0965 #### [facility] [address] [place] [address], [facility] GFR/1.73 sq M.predicted among blacks MDRD (S/P/Bld) [Vol rate/Area] mL/min/{1.73_m2} Normal >[address] [facility] Comment on above: Order Comment: No: D o not add to previous draw Result Comment: Calc ulation may not be valid for patients over 70 years Performed By: #### 3 0965 #### [facility] [address] [place] [address], [facility] GFR/1.73 sq M.predicted among non-blacks MDRD (S/P/Bld) [Vol rate/Area] mL/min/{1.73_m2} Normal >[address] [facility] Comment on above: Order Comment: No: D o not add to previous draw Result Comment: Calc ulation may not be valid for patients over 70 years Performed By: #### 3 0965 #### [facility] [address] [place] [address], [place] Glucose [Mass/Vol] 132 mg/dL High 70-[address] [facility] Comment on above: Order Comment: No: D o not add to previous draw Performed By: #### 3 0965 #### [facility] [address] [place] [address], [place] Potassium [Moles/Vol] 4.5 mmol/L Normal 3.5-5.[address] [facility] Comment on above: Order Comment: No: D o not add to previous draw Performed By: #### 3 0965 #### [facility] [address] [place] [address], [place] Sodium [Moles/Vol] 141 mmol/L Normal 136-[address] [facility] Comment on above: Order Comment: No: D o not add to previous draw Performed By: #### 3 0965 #### [facility] [address] [place] [address], [place] Urea nitrogen [Mass/Vol] 18 mg/dL Normal 7-[address] [facility] Comment on above: Order Comment: No: D o not add to previous draw Performed By: #### 3 0965 #### [facility] [address] [place] [address], [place] Calcium [Mass/Vol] 7.7 mg/dL Low 8.6-10.[address] [facility] Comment on above: Performed By: #### 3 0965 #### [facility] [address] [place] [address], [place] Chloride [Moles/Vol] 108 mmol/L High 98-[address] [facility] Comment on above: Performed By: #### 3 0965 #### [facility] [address] [place] [address], [place] CO2 [Moles/Vol] 22 mmol/L Normal 21-[address] [facility] Comment on above: Performed By: #### 3 0965 #### [facility] [address] [place] [address], [place] Creatinine [Mass/Vol] 0.90 mg/dL Normal 0.70-1.[address] [facility] Comment on above: Performed By: #### 3 0965 #### [facility] [address] [place] [address], [place] Urea nitrogen [Mass/Vol] 20 mg/dL Normal 7-[address] [facility] Comment on above: Performed By: #### 3 0965 #### [facility] [address] [place] [address], [place] Glucose [Mass/Vol] 159 mg/dL High 70-[address] [facility] Comment on above: Performed By: #### 3 0965 #### [facility] [address] [place] [address], [facility] Performed By: #### 3 0738 #### [facility] [address] [place] [address], [facility] Potassium [Moles/Vol] 3.3 mmol/L Low 3.5-4.[address] [facility] Comment on above: Performed By: #### 3 0965 #### [facility] [address] [place] [address], [facility] Performed By: #### 8 5499 #### [facility] [address] [place] [address], [facility] Sodium [Moles/Vol] 140 mmol/L Normal 138-[address] [facility] Comment on above: Performed By: #### 3 0965 #### [facility] [address] [place] [address], [facility] Performed By: #### 3 1792 #### [facility] [address] [place] [address], [facility] Performed By: #### 8 [id number] #### [facility] [address] [place] [address], [facility] CBC COMPLETE BLOOD COUNTon 09-12-2020 Erythrocyte distribution width (RBC) [Ratio] 12.8 % Normal 11.5-15.[address] [facility] Comment on above: Order Comment: No: D o not add to previous draw Performed By: #### 5 0608 #### [facility] [address] [place] [address], [facility] Hematocrit (Bld) [Volume fraction] 31.0 % Low 39.0-50.[address] [facility] Comment on above: Order Comment: No: D o not add to previous draw Performed By: #### 5 0608 #### [facility] [address] [place] [address], [facility] Hemoglobin (Bld) [Mass/Vol] 10.4 g/dL Low 13.0-17.[address] [facility] Comment on above: Order Comment: No: D o not add to previous draw Performed By: #### 5 0608 #### [facility] [address] [place] [address], [facility] MCH (RBC) [Entitic mass] 31.0 pg Normal 27.0-33.[address] [facility] Comment on above: Order Comment: No: D o not add to previous draw Performed By: #### 5 0608 #### [facility] [address] MCHC (RBC) [Mass/Vol] 33.5 g/dL Normal 32.0-35.[address] [facility] Comment on above: Order Comment: No: D o not add to previous draw Performed By: #### 5 0608 #### [facility] [address] [place] [address], [facility] MCV (RBC) [Entitic vol] 92.3 fL Normal 82.0-98.[address] [facility] Comment on above: Order Comment: No: D o not add to previous draw Performed By: #### 5 0608 #### [facility] [address] [facility] [place] [address], [facility] Nucleated RBC/100 WBC (Bld) [Ratio] 0 % Normal 0-[address] [facility] Comment on above: Order Comment: No: D o not add to previous draw Performed By: #### 5 0608 #### [facility] [address] [facility] Performed By: #### 8 5499 #### [facility] [address] [facility] [place] [address], [facility] PLAT CNT 162 10*3/uL Normal 150-[address] [facility] Comment on above: Order Comment: No: D o not add to previous draw Performed By: #### 5 0608 #### [facility] [address] [place] [address], [facility] RBC (Bld) [#/Vol] 3.36 10*6/uL Low 4.20-5.[address] [facility] Comment on above: Order Comment: No: D o not add to previous draw Performed By: #### 5 0608 #### [facility] [address] [place] [address], [facility] WBC (Bld) [#/Vol] 11.92 10*3/uL High 4.00-10.[address] [facility] Comment on above: Order Comment: No: D o not add to previous draw Performed By: #### 5 0608 #### [facility] [address] [place] [address], [facility] Erythrocyte distribution width (RBC) [Ratio] 12.2 % Normal 11.5-15.[address] [facility] Comment on above: Performed By: #### 8 [id number] #### [facility] [address] [place] [address], [facility] Hematocrit (Bld) [Volume fraction] 28.9 % Low 39.0-50.[address] [facility] Comment on above: Performed By: #### 8 [id number] #### [facility] [address] [place] [address], [facility] Hemoglobin (Bld) [Mass/Vol] 9.4 g/dL Low 13.0-17.[address] [facility] Comment on above: Performed By: #### 8 [id number] #### [facility] [address] [facility] [place] [address], [facility] MCH (RBC) [Entitic mass] 30.6 pg Normal 27.0-33.[address] [facility] Comment on above: Performed By: #### 8 [id number] #### [facility] [address] [place] [address], [facility] MCHC (RBC) [Mass/Vol] 32.5 g/dL Normal 32.0-35.[address] [facility] Comment on above: Performed By: #### 8 [id number] #### [facility] [address] [place] [address], [facility] MCV (RBC) [Entitic vol] 94.1 fL Normal 82.0-98.[address] [facility] Comment on above: Performed By: #### 8 [id number] #### [facility] [address] [place] [address], [facility] PLAT CNT 129 10*3/uL Low 150-[address] [facility] Comment on above: Performed By: #### 8 [id number] #### [facility] [address] [facility] [place] [address], [facility] RBC (Bld) [#/Vol] 3.07 10*6/uL Low 4.20-5.[address] [facility] Comment on above: Performed By: #### 8 [id number] #### [facility] [address] [facility] [place] [address], [facility] WBC (Bld) [#/Vol] 12.08 10*3/uL High 4.00-10.[address] [facility] Comment on above: Performed By: #### 8 [id number] #### [facility] [address] [facility] [place] [id number], [facility] LACTATE BLOODon 07-12-2021 Lactate [Moles/Vol] 2.0 mmol/L Normal .5-2.[address] [facility] Comment on above: Order Comment: Pneum othorax Performed By: #### 1 0054 ####[facility] [place] [address], [facility] Lactate [Moles/Vol] 1.9 mmol/L Normal .5-2.[address] [facility] Comment on above: Performed By: #### 8 [id number] #### [facility] [address] [place] [id number], [facility] MAGNESIUM BLOODon 07-12-2021 Magnesium [Mass/Vol] 2.3 mg/dL Normal 1.9-2.[address] [facility] Comment on above: Order Comment: No: D o not add to previous draw Performed By: #### 3 0965 #### [facility] [address] [place] [address], [facility] Magnesium [Mass/Vol] 2.8 mg/dL High 1.9-2.[address] [facility] Comment on above: Performed By: #### 3 0965 #### [facility] [address] [place] [address], [facility] PERFUSION BLOOD PANELon 12 BASE EXCESS -4.0 mmol/L Low -2.0-3.[address] [facility] Comment on above: Performed By: #### 3 0738 #### [facility] [address] [place] [address], [facility] Hematocrit (Bld) [Volume fraction] 26 % Low 38-[address] [facility] Comment on above: Performed By: #### 3 0738 #### [facility] [address] [place] [address], [facility] Hemoglobin (Bld) [Mass/Vol] 8.8 g/dL Low 12.0-17.[address] [facility] Comment on above: Performed By: #### 3 0738 #### [facility] [address] [place] [address], [facility] IONIZED CALCIUM 1.16 mmol/L Normal 1.12-1.[address] [facility] Comment on above: Performed By: #### 3 0738 #### [facility] [address] [place] [address], [facility] Oxygen (Bld) [Partial pressure] 89.0 mm[Hg] Normal 80.0-105.[address] [facility] Comment on above: Performed By: #### 3 0738 #### [facility] [address] [place] [address], [facility] PCO2 40.5 mmHg Normal 35.0-45.[address] [facility] Comment on above: Performed By: #### 3 0738 #### [facility] [address] [place] [address], [facility] pH (Bld) 7.34 [pH] Low 7.35-7.[address] [facility] Comment on above: Performed By: #### 3 0738 #### [facility] [address] [place] [address], [place] Potassium [Moles/Vol] 3.2 mmol/L Low 3.5-4.[address] [facility] Comment on above: Performed By: #### 3 0738 #### [facility] [address] [place] [address], [place] Sodium [Moles/Vol] 142 mmol/L Normal 138-[address] [facility] Comment on above: Performed By: #### 3 0738 #### [facility] [address] [place] [address], [facility] BASE EXCESS -4.0 mmol/L Low -2.0-3.[address] [facility] Comment on above: Performed By: #### 8 [id number] #### [facility] [address] [place] [address], [place] Glucose [Mass/Vol] 157 mg/dL High 70-[address] [facility] Comment on above: Performed By: #### 8 [id number] #### [facility] [address] [place] [address], [facility] Hematocrit (Bld) [Volume fraction] 26 % Low 38-[address] [facility] Comment on above: Performed By: #### 8 [id number] #### [facility] [address] [place] [address], [facility] Hemoglobin (Bld) [Mass/Vol] 8.8 g/dL Low 12.0-17.[address] [facility] Comment on above: Performed By: #### 8 [id number] #### [facility] [address] [place] [address], [facility] IONIZED CALCIUM 1.21 mmol/L Normal 1.12-1.[address] [facility] Comment on above: Performed By: #### 8 [id number] #### [facility] [address] [place] [address], [facility] Oxygen (Bld) [Partial pressure] 62.0 mm[Hg] Low 80.0-105.[address] [facility] Comment on above: Performed By: #### 8 [id number] #### [facility] [address] [place] [address], [facility] PCO2 40.8 mmHg Normal 35.0-45.[address] [facility] Comment on above: Performed By: #### 8 [id number] #### [facility] [address] [place] [address], [facility] pH (Bld) 7.34 [pH] Low 7.35-7.[address] [facility] Comment on above: Performed By: #### 8 [id number] #### [facility] [address] [place] [address], [place] Sodium [Moles/Vol] 142 mmol/L Normal 138-[address] [facility] Comment on above: Performed By: #### 8 [id number] #### [facility] [address] [place] [address], [place] BASE EXCESS 2.0 mmol/L Normal -2.0-3.[address] [facility] Comment on above: Performed By: #### 3 1791 #### [facility] [address] [place] [address], [place] Glucose [Mass/Vol] 152 mg/dL High 70-[address] [facility] Comment on above: Performed By: #### 3 1791 #### [facility] [address] [place] [address], [place] Hematocrit (Bld) [Volume fraction] 28 % Low 38-[address] [facility] Comment on above: Performed By: #### 3 1791 #### [facility] [address] [place] [address], [facility] Hemoglobin (Bld) [Mass/Vol] 9.5 g/dL Low 12.0-17.[address] [facility] Comment on above: Performed By: #### 3 1791 #### [facility] [address] [place] [address], [facility] IONIZED CALCIUM 1.03 mmol/L Low 1.12-1.[address] [facility] Comment on above: Performed By: #### 3 1791 #### [facility] [address] [place] [address], [facility] Oxygen (Bld) [Partial pressure] 509.0 mm[Hg] High 80.0-105.[address] [facility] Comment on above: Performed By: #### 3 1791 #### [facility] [address] [place] [address], [facility] PCO2 41.3 mmHg Normal 35.0-45.[address] [facility] Comment on above: Performed By: #### 3 1791 #### [facility] [address] [place] [address], [facility] pH (Bld) 7.42 [pH] Normal 7.35-7.[address] [facility] Comment on above: Performed By: #### 3 1791 #### [facility] [address] [place] [address], [place] Potassium [Moles/Vol] 4.2 mmol/L Normal 3.5-4.[address] [facility] Comment on above: Performed By: #### 3 1791 #### [facility] [address] [place] [address], [place] Sodium [Moles/Vol] 139 mmol/L Normal 138-[address] [facility] Comment on above: Performed By: #### 3 1791 #### [facility] [address] [place] [address], [place] BASE EXCESS 3.0 mmol/L Normal -2.0-3.[address] [facility] Comment on above: Performed By: #### 8 [id number] #### [facility] [address] [place] [address], [facility] Glucose [Mass/Vol] 165 mg/dL High 70-[address] [facility] Comment on above: Performed By: #### 8 [id number] #### [facility] [address] [place] [address], [facility] Hematocrit (Bld) [Volume fraction] 29 % Low 38-[address] [facility] Comment on above: Performed By: #### 8 [id number] #### [facility] [address] [place] [address], [facility] Hemoglobin (Bld) [Mass/Vol] 9.9 g/dL Low 12.0-17.[address] [facility] Comment on above: Performed By: #### 8 [id number] #### [facility] [address] [place] [address], [facility] Oxygen (Bld) [Partial pressure] 452.0 mm[Hg] High 80.0-105.[address] [facility] Comment on above: Performed By: #### 8 [id number] #### [facility] [address] [place] [address], [facility] PCO2 45.7 mmHg High 35.0-45.[address] [facility] Comment on above: Performed By: #### 8 [id number] #### [facility] [address] [place] [address], [facility] pH (Bld) 7.39 [pH] Normal 7.35-7.[address] [facility] Comment on above: Performed By: #### 8 [id number] #### [facility] [address] [place] [address], [facility] Potassium [Moles/Vol] 4.3 mmol/L Normal 3.5-4.[address] [facility] Comment on above: Performed By: #### 8 [id number] #### [facility] [address] [place] [address], [facility] Sodium [Moles/Vol] 139 mmol/L Normal 138-[address] [facility] Comment on above: Performed By: #### 8 [id number] #### [facility] [address] [place] [address], [facility] BASE EXCESS 2.0 mmol/L Normal -2.0-3.[address] [facility] Comment on above: Performed By: #### 8 [id number] #### [facility] [address] [place] [address], [facility] Glucose [Mass/Vol] 225 mg/dL High 70-[address] [facility] Comment on above: Performed By: #### 8 [id number] #### [facility] [address] [place] [address], [facility] Hematocrit (Bld) [Volume fraction] 25 % Low 38-51 [facility] Comment on above: Performed By: #### [id number] #### [facility] [address] [place] [address], [facility] Hemoglobin (Bld) [Mass/Vol] 8.5 g/dL Low 12.0-17.[address] [facility] Comment on above: Performed By: #### 8 [id number] #### [facility] [address] [place] [address], [facility] IONIZED CALCIUM 1.05 mmol/L Low 1.12-1.[address] [facility] Comment on above: Performed By: #### 8 [id number] #### [facility] [address] [place] [address], [facility] Oxygen (Bld) [Partial pressure] 446.0 mm[Hg] High 80.0-105.[address] [facility] Comment on above: Performed By: #### 8 [id number] #### [facility] [address] [place] [address], [facility] PCO2 49.0 mmHg High 35.0-45.[address] [facility] Comment on above: Performed By: #### 8 [id number] #### [facility] [address] [place] [address], [facility] pH (Bld) 7.36 [pH] Normal 7.35-7.[address] [facility] Comment on above: Performed By: #### 8 [id number] #### [facility] [address] [place] [address], [place] Potassium [Moles/Vol] 4.3 mmol/L Normal 3.5-4.[address] [facility] Comment on above: Performed By: #### 8 [id number] #### [facility] [address] [place] [address], [place] Sodium [Moles/Vol] 138 mmol/L Normal 138-[address] [facility] Comment on above: Performed By: #### 8 [id number] #### [facility] [address] [place] [address], [facility] BASE EXCESS 3.0 mmol/L Normal -2.0-3.[address] [facility] Comment on above: Performed By: #### 8 [id number] #### [facility] [address] [place] [address], [place] Glucose [Mass/Vol] 97 mg/dL Normal 70-[address] [facility] Comment on above: Performed By: #### 8 [id number] #### [facility] [address] [place] [address], [place] Hematocrit (Bld) [Volume fraction] 28 % Low 38-[address] [facility] Comment on above: Performed By: #### 8 [id number] #### [facility] [address] [place] [address], [place] Hemoglobin (Bld) [Mass/Vol] 9.5 g/dL Low 12.0-17.[address] [facility] Comment on above: Performed By: #### 8 [id number] #### [facility] [address] [place] [address], [facility] IONIZED CALCIUM 0.97 mmol/L Low 1.12-1.[address] [facility] Comment on above: Performed By: #### 8 [id number] #### [facility] [address] [place] [address], [facility] Oxygen (Bld) [Partial pressure] 501.0 mm[Hg] High 80.0-105.[address] [facility] Comment on above: Performed By: #### 8 [id number] #### [facility] [address] [facility] [place] [address], [facility] PCO2 38.5 mmHg Normal 35.0-45.[address] [facility] Comment on above: Performed By: #### 8 [id number] #### [facility] [address] [place] [address], [facility] pH (Bld) 7.45 [pH] Normal 7.35-7.[address] [facility] Comment on above: Performed By: #### 8 [id number] #### [facility] [address] [place] [address], [facility] Potassium [Moles/Vol] 3.8 mmol/L Normal 3.5-4.[address] [facility] Comment on above: Performed By: #### 8 [id number] #### [facility] [address] [place] [address], [facility] Sodium [Moles/Vol] 139 mmol/L Normal 138-[address] [facility] Comment on above: Performed By: #### 8 [id number] #### [facility] [address] [place] [address], [facility] BASE EXCESS 0.0 mmol/L Normal -2.0-3.[address] [facility] Comment on above: Performed By: #### 8 [id number] #### [facility] [address] [place] [address], [facility] Glucose [Mass/Vol] 97 mg/dL Normal 70-[address] [facility] Comment on above: Performed By: #### 8 [id number] #### [facility] [address] [place] [address], [facility] Hematocrit (Bld) [Volume fraction] 29 % Low 38-[address] [facility] Comment on above: Performed By: #### 8 [id number] #### [facility] [address] [place] [address], [facility] Hemoglobin (Bld) [Mass/Vol] 9.9 g/dL Low 12.0-17.[address] [facility] Comment on above: Performed By: #### 8 [id number] #### [facility] [address] [place] [address], [facility] IONIZED CALCIUM 1.03 mmol/L Low 1.12-1.[address] [facility] Comment on above: Performed By: #### 8 [id number] #### [facility] [address] [place] [address], [facility] Oxygen (Bld) [Partial pressure] 46.0 mm[Hg] Normal [facility] Comment on above: Performed By: #### 8 [id number] #### [facility] [address] [place] [address], [facility] PCO2 40.6 mmHg Low 41.0-51.[address] [facility] Comment on above: Performed By: #### 8 [id number] #### [facility] [address] [place] [address], [facility] pH (Bld) 7.39 [pH] Normal 7.31-7.[address] [facility] Comment on above: Performed By: #### 8 [id number] #### [facility] [address] [place] [address], [facility] Potassium [Moles/Vol] 3.8 mmol/L Normal 3.5-4.[address] [facility] Comment on above: Performed By: #### 8 [id number] #### [facility] [address] [place] [address], [facility] Sodium [Moles/Vol] 141 mmol/L Normal 138-[address] [facility] Comment on above: Performed By: #### 8 [id number] #### [facility] [address] [place] [address], [facility] BASE EXCESS -1.0 mmol/L Normal -2.0-3.[address] [facility] Comment on above: Performed By: #### 3 [id number] #### [facility] [address] [place] [address], [facility] Glucose [Mass/Vol] 107 mg/dL High 70-[address] [facility] Comment on above: Performed By: #### 3 [id number] #### [facility] [address] [place] [address], [facility] Hematocrit (Bld) [Volume fraction] 33 % Low 38-[address] [facility] Comment on above: Performed By: #### 3 [id number] #### [facility] [address] [place] [address], [facility] Hemoglobin (Bld) [Mass/Vol] 11.2 g/dL Low 12.0-17.[address] [facility] Comment on above: Performed By: #### 3 179 #### [facility] [address] [place] [address], [facility] IONIZED CALCIUM 1.16 mmol/L Normal 1.12-1.[address] [facility] Comment on above: Performed By: #### 3 179 #### [facility] [address] [place] [address], [facility] Oxygen (Bld) [Partial pressure] 293.0 mm[Hg] High 80.0-105.[address] [facility] Comment on above: Performed By: #### 3 179 #### [facility] [address] [place] [address], [facility] PCO2 41.5 mmHg Normal 35.0-45.[address] [facility] Comment on above: Performed By: #### 3 [id number] #### [facility] [address] [place] [address], [facility] pH (Bld) 7.38 [pH] Normal 7.35-7.[address] [facility] Comment on above: Performed By: #### 3 [id number] #### [facility] [address] [place] [address], [facility] Potassium [Moles/Vol] 3.8 mmol/L Normal 3.5-4.[address] [facility] Comment on above: Performed By: #### 3 [id number] #### [facility] [address] [place] [address], [facility] BASE EXCESS 0.0 mmol/L Normal -2.0-3.[address] [facility] Comment on above: Performed By: #### 8 [id number] #### [facility] [address] [place] [address], [facility] Glucose [Mass/Vol] 104 mg/dL Normal 70-[address] [facility] Comment on above: Performed By: #### 8 [id number] #### [facility] [address] [place] [address], [place] Hematocrit (Bld) [Volume fraction] 35 % Low 38-[address] [facility] Comment on above: Performed By: #### 8 [id number] #### [facility] [address] [place] [address], [place] Hemoglobin (Bld) [Mass/Vol] 11.9 g/dL Low 12.0-17.[address] [facility] Comment on above: Performed By: #### 8 [id number] #### [facility] [address] [place] [address], [place] IONIZED CALCIUM 1.20 mmol/L Normal 1.12-1.[address] [facility] Comment on above: Performed By: #### 8 [id number] #### [facility] [address] [place] [address], [facility] Oxygen (Bld) [Partial pressure] 379.0 mm[Hg] High 80.0-105.[address] [facility] Comment on above: Performed By: #### 8 [id number] #### [facility] [address] [place] [address], [place] PCO2 40.8 mmHg Normal 35.0-45.[address] [facility] Comment on above: Performed By: #### 8 [id number] #### [facility] [address] [place] [address], [place] pH (Bld) 7.40 [pH] Normal 7.35-7.[address] [facility] Comment on above: Performed By: #### 8 [id number] #### [facility] [address] [place] [address], [facility] Potassium [Moles/Vol] 3.9 mmol/L Normal 3.5-4.[address] [facility] Comment on above: Performed By: #### 8 [id number] #### [facility] [address] [place] [address], [facility] PHOSPHORUS BLOODon Phosphate [Mass/Vol] 2.7 mg/dL Normal 2.5-5.[address] [facility] Comment on above: Order Comment: No: D o not add to previous draw Performed By: #### 3 0965 #### [facility] [address] [place] [address], [place] POC GLUCOSE LABon 07-12-2021 Glucose [Mass/Vol] 115 mg/dL High 70-[address] [facility] Comment on above: Performed By: #### 3 1595 #### [facility] [address] [place] [address], [place] Glucose [Mass/Vol] 132 mg/dL High 70-[address] [facility] Comment on above: Performed By: #### 3 1595 #### [facility] [address] [address], [place] Glucose [Mass/Vol] 109 mg/dL High 70-[address] [facility] Comment on above: Performed By: #### 5 0608 #### [facility] [address] [place] [address], [place] Glucose [Mass/Vol] 150 mg/dL High 70-[address] [facility] Comment on above: Performed By: #### 8 [id number] #### [facility] [address] [place] [address], [place] Glucose [Mass/Vol] 162 mg/dL High 70-[address] [facility] Comment on above: Performed By: #### 5 0608 #### [facility] [address] [place] [address], [place] Glucose [Mass/Vol] 97 mg/dL Normal 70-[address] [facility] Comment on above: Performed By: #### 3 1595 #### [facility] [address] [facility] [place] [address], [facility] PORTABLE CHEST 1 VIEW 06-28 PORTABLE CHEST [address] [facility] Department of Radiology [address] [place] [id number] Patient Name: ISRAEL DEVINE : 1950 Sex: M Age: Race: White Pt. Location: [id number] Patient Status: I Ordered Date: 07/12/2021 1:00:00 PM Completed Date: 07/12/2021 01:39 PM Requesting Provider: KAYLA WING Attending Provider: SINGH DOTSON Report Copy To: Signs & Symptoms: Post CABG History: Comments: Check Chest Tube Position, ON ARRIVAL TO CVU Exam: PORTABLE CHEST 1 VIEW PORTABLE CHEST 1 VIEW 07/12/2021 1:39 PM CLINICAL INDICATIONS: Post CABG TECHNOLOGIST COMMENTS: Check Chest Tube Position, ON ARRIVAL TO CVU QUESTION FOR THE RADIOLOGIST: Check Chest Tube Position, ON ARRIVAL TO CVU PROTOCOL: AP(PA) view was obtained. COMPARISON: July 10 FINDINGS: Surgical changes are now seen with heart valve and left atrial clip line ET tube in the mid trachea NG tube in the stomach Right IJ line mid SVC There is haziness in the right hemithorax with chest tubes in place, small amount of pleural fluid or thickening along the apex No visible pneumothorax Small left pleural effusion seen Other materials appear to be external IMPRESSION: Postoperative changes with trace effusions, right chest tubes in place, no visible pneumothorax There is mild cardiomegaly mediastinal prominence with heart valve and left atrial clip noted There is mild congestive change in basilar atelectasis Electronically signed: Amauri Ramirez. Transcribed by: [id number], User Resident: Electronically Signed by: AMAURI RAMIREZ @ 07/12/2021 01:53 PM Normal [facility] Comment on above: Order Comment: The A ptima SARS-CoV-2 assay is a nucleic acid amplification test intended for the qualitative detection of RNA from SARS-CoV-2 isolated and purified from nasopharyngeal (SUPERVISOR COIL WINDING),oropharyngeal (OP), nasal swab, sputum, and bronchoalveolar lavage (BAL) specimens from patients with signs and symptoms of infection who are suspected of COVID-19. Results are for the identification of SARS-CoV-2 RNA. The SARS-CoV-2 RNA is generally detectable during the acute phase of infection. The Aptima SARS-CoV-2 Assay on the Astonish Results and Astonish Results Fusion system is intended for use by laboratory personnel specifically instructed and trained in the operation of the [place] and [place] Fusion system. The Aptima SARS-CoV-2 assay is only for use under the Food and Drug Administration Emergency Use Authorization. Testing is limited to laboratories certified under the Clinical Laboratory Improvement Amendments of 1988 (CLIA), 42 U.S.C. ???263a, to perform high complexity tests. Not Detected: Not detected does not preclude SARS-CoV-2 infection and should not be used as the sole basis for patient management decisions. Not detected results must be combined with clinical observations, patient history, and epidemiological information. PROTHROMBIN TIMEon 1 INR Coag (PPP) [Relative time] 1.27 {INR} High 0.91-1.[address] [facility] Comment on above: Order Comment: No: D o not add to previous draw Result Comment: ACCC P RECOMMENDED INR FOR WARFARIN THERAPY ----- ------- CONDITION INR PROPHYLAXIS OF VENOUS THROMBOSIS 2-3 (HIGH-RISK SURGERY) TREATMENT OF VENOUS THROMBOSIS 2-3 TREATMENT OF PULMONARY EMBOLISM 2-3 PREVENTION OF SYSTEMIC EMBOLISM: 2-3 ACUTE MYOCARDIAL INFARCTION TISSUE HEART VALVES VALVULAR HEART DISEASE ATRIAL FIBRILLATION RECURRENT SYSTEMIC EMBOLISM MECHANICAL HEART VALVE 2.5-3.5 FROM: ORAL ANTICOAGULANTS. MECHANISM OF ACTION, CLINICAL EFFECTIVENESS, AND OPTIMAL THERAPEUTIC RANGE. CHEST 1995;108:231S-246S. Performed By: #### 5 [id number] #### [address] PT Coag (PPP) [Time] 15.9 s High 12.3-14.[address] [facility] Comment on above: Order Comment: No: D o not add to previous draw Result Comment: ALL RESULTS MUST BE INTERPRETED WITH RESPECT TO BLOOD DRAWING ARTIFACT OR DILUTION ERROR OF ANTICOAGULANT AT THE TIME OF SAMPLING. Performed By: #### 5 [id number] #### [facility] [address] INR Coag (PPP) [Relative time] 1.63 {INR} High 0.91-1.[address] [facility] Comment on above: Result Comment: ACCC P RECOMMENDED INR FOR WARFARIN THERAPY ----- ------- CONDITION INR PROPHYLAXIS OF VENOUS THROMBOSIS 2-3 (HIGH-RISK SURGERY) TREATMENT OF VENOUS THROMBOSIS 2-3 TREATMENT OF PULMONARY EMBOLISM 2-3 PREVENTION OF SYSTEMIC EMBOLISM: 2-3 ACUTE MYOCARDIAL INFARCTION TISSUE HEART VALVES VALVULAR HEART DISEASE ATRIAL FIBRILLATION RECURRENT SYSTEMIC EMBOLISM MECHANICAL HEART VALVE 2.5-3.5 FROM: ORAL ANTICOAGULANTS. MECHANISM OF ACTION, CLINICAL EFFECTIVENESS, AND OPTIMAL THERAPEUTIC RANGE. CHEST 1995;108:231S-246S. Performed By: #### 5 [id number] #### [address] PT Coag (PPP) [Time] 19.2 s High 12.3-14.[address] [facility] Comment on above: Result Comment: ALL RESULTS MUST BE INTERPRETED WITH RESPECT TO BLOOD DRAWING ARTIFACT OR DILUTION ERROR OF ANTICOAGULANT AT THE TIME OF SAMPLING. Performed By: #### 5 [id number] #### [facility] [address] CHEST AND LATERALon 07-10-20 21 CHEST AND LATERAL [facility] Department of Radiology [address] [place] [id number] Patient Name: ISRAEL DEVINE : 1950 Sex: M Age: Race: White Pt. Location: Patient Status: O Ordered Date: 07/10/2021 1:55:00 PM Completed Date: 07/10/2021 01:58 PM Requesting Provider: SINGH DOTSON Attending Provider: SINGH DOTSON Report Copy To: DEB KLEIN Signs & Symptoms: I35.1 Nonrheumatic aortic (valve) insufficiency I10 History: Thalia Comments: evaluate Exam: CHEST AND LATERAL CHEST AND LATERAL 07/10/2021 1:58 PM CLINICAL INDICATIONS: I35.1 Nonrheumatic aortic (valve) insufficiency I10 TECHNOLOGIST COMMENTS: pre op for heart valve surgery QUESTION FOR THE RADIOLOGIST: evaluate PROTOCOL: AP(PA) and Lateral views were obtained. COMPARISON: 05/29/2021 FINDINGS: 2 views of the chest were obtained. There is mild pulmonary hyperexpansion. Linear opacities in the lower lungs are compatible with scarring or atelectasis. Cardiac mediastinal contours appear stable with mild cardiac prominence. There is no vascular distention. IMPRESSION: Changes of COPD with basilar opacities compatible with scarring or atelectasis. Electronically signed: Ludwig Shah. Transcribed by: [id number], User Resident: Electronically Signed by: LUDWIG SHAH @ 07/10/2021 05:29 PM Normal [facility] Comment on above: Order Comment: The A ptima SARS-CoV-2 assay is a nucleic acid amplification test intended for the qualitative detection of RNA from SARS-CoV-2 isolated and purified from nasopharyngeal (SUPERVISOR COIL WINDING),oropharyngeal (OP), nasal swab, sputum, and bronchoalveolar lavage (BAL) specimens from patients with signs and symptoms of infection who are suspected of COVID-19. Results are for the identification of SARS-CoV-2 RNA. The SARS-CoV-2 RNA is generally detectable during the acute phase of infection. The Aptima SARS-CoV-2 Assay on the [place] and [place] Fusion system is intended for use by laboratory personnel specifically instructed and trained in the operation of the [place] and [place] Fusion system. The Aptima SARS-CoV-2 assay is only for use under the Food and Drug Administration Emergency Use Authorization. Testing is limited to laboratories certified under the Clinical Laboratory Improvement Amendments of 1988 (CLIA), 42 U.S.C. ???263a, to perform high complexity tests. Not Detected: Not detected does not preclude SARS-CoV-2 infection and should not be used as the sole basis for patient management decisions. Not detected results must be combined with clinical observations, patient history, and epidemiological information. Pulmonary Functionon 06-27- 021 Pulmonary Function MR #: [id number] [facility] PT. Name: Israel Devine Date: 05/29/2021 Date of : 1950 Patient Type: D Pulmonary Function INTERPRETATION CLINICAL INDICATION: The patient is 70-year-old male with BMI of 29.6. Indication is aortic valve insufficiency. Patient smoked 2 pack/day for 20 years and quit 23 years ago. LUNG MECHANICS: Spirometry shows mild reduced FEV1 to 72% of predicted which is 2.34 L. FVC is also mildly reduced to 78% of predicted. FEV1/FVC ratio is reduced to 67% indicating obstruction. MVV is reduced to 68% consistent with the reduction in FEV1. The flow volume loop shows normal inhalation lobe, exhalation loop also show obstructive pattern. LUNG VOLUMES: (NITROGEN WASHOUT TECHNIQUE) Not ordered. LUNG VOLUMES: (BODY BOX TECHNIQUE) Residual volume is enlarged to 144% indicating gas trapping. Total capacity is normal at 1/2% of predicted. LUNG DIFFUSION: Uncorrected DLCO is 63%. Corrected DLCO is reduced to 65%. DLCO corrected alveolar volume is still reduced to 78% of predicted. CLINICAL IMPRESSION: The study is consistent with mild obstructive lung disease with gas trapping and parenchymal involvement consistent with COPD/emphysema. Electronically Signed by: Maycol Gomez MD 06/27/2021 01:23 P __ Maycol Gomez MD [facility] Date Dict: 06/27/2021/01:07 P/Maycol Gomez MD Date Trans: 06/27/2021 01:07 P/ [id number] cc: Deb Klein M.D. [address] [place] [address] [facility] *MRSA/MSSA DNA NASALon 05-29 *MRSA/MSSA DNA NASAL Clinical Report: (D) Specimen: NASAL SWAB Collected: 05/29/2021 12:56 Status: Final Last Updated: 05/29/2021 17:37 MSSA DNA (Final) Negative MRSA DNA (Final) Negative Normal [facility] Comment on above: Performed By: #### 3 [id number] #### [facility] [address] *SARS-CoV-2 COVID-19on 05-29 SARS-CoV-2 (COVID-19) RNA RAZIA+probe Ql (Unsp spec) Not detected Normal Not Detected [facility] Comment on above: Order Comment: The A ptima SARS-CoV-2 assay is a nucleic acid amplification test intended for the qualitative detection of RNA from SARS-CoV-2 isolated and purified from nasopharyngeal (SUPERVISOR COIL WINDING),oropharyngeal (OP), nasal swab, sputum, and bronchoalveolar lavage (BAL) specimens from patients with signs and symptoms of infection who are suspected of COVID-19. Results are for the identification of SARS-CoV-2 RNA. The SARS-CoV-2 RNA is generally detectable during the acute phase of infection. The Aptima SARS-CoV-2 Assay on the Astonish Results and [place] Fusion system is intended for use by laboratory personnel specifically instructed and trained in the operation of the [place] and [place] Fusion system. The Aptima SARS-CoV-2 assay is only for use under the Food and Drug Administration Emergency Use Authorization. Testing is limited to laboratories certified under the Clinical Laboratory Improvement Amendments of 1988 (CLIA), 42 U.S.C. ???263a, to perform high complexity tests. Not Detected: Not detected does not preclude SARS-CoV-2 infection and should not be used as the sole basis for patient management decisions. Not detected results must be combined with clinical observations, patient history, and epidemiological information. Performed By: #### 3 [id number] #### [facility] [address] [place] [address], [facility] APTTon 05-29-2021 aPTT Coag (Bld) [Time] 32.6 s Normal 25.0-35.[address] [facility] Comment on above: Result Comment: ALL RESULTS MUST BE INTERPRETED WITH RESPECT TO BLOOD DRAWING ARTIFACT OR DILUTION ERROR OF ANTICOAGULANT AT THE TIME OF SAMPLING. THE APTT SHOULD NOT BE USED TO MONITOR UNFRACTIONATED HEPARIN THERAPY, THIS LABORATORY NO LONGER HAS AN ESTABLISHED THERAPEUTIC RANGE BASED ON THE APTT. IT IS RECOMMENDED THAT THE [facility] - HEPARIN ASSAY (ANTI-XA ACTIVITY) BE USED FOR THIS PURPOSE. Performed By: #### 8 [id number] #### [facility] [address] [place] [address], [facility] ARTERIAL BLOOD GAS W/COOXon 05-29-2021 BASE EXCESS -1 mmol/L Normal -2-[address] [facility] Comment on above: Performed By: #### 3 0738 #### [facility] [address] [place] [address], [facility] COHB 1.3 % Normal 0.0-1.[address] [facility] Comment on above: Performed By: #### 3 0738 #### [facility] [address] [place] [address], [facility] DELIVERY SYSTEMS ROOM AIR Normal [facility] Comment on above: Performed By: #### 3 0738 #### [facility] [address] [place] [address], [facility] FIO2 0 % Normal [facility] Comment on above: Performed By: #### 3 0738 #### [facility] [address] [place] [address], [facility] HCO3 (Bld) [Moles/Vol] 23 mmol/L Normal 21-[address] [facility] Comment on above: Performed By: #### 3 0738 #### [facility] [address] [place] [address], [facility] METHB 0.7 % Normal 0.0-1.[address] [facility] Comment on above: Performed By: #### 3 0738 #### [facility] [address] [place] [address], [facility] Oxygen (Bld) [Partial pressure] 87 mm[Hg] Normal 83-[address] [facility] Comment on above: Performed By: #### 3 0738 #### [facility] [address] [facility] [place] [address], [facility] Oxygen saturation in Blood 96.3 % Normal 94.0-97.[address] [facility] Comment on above: Performed By: #### 3 0738 #### [facility] [address] [facility] [place] [address], [facility] PCO2 35 mmHg Normal 35-[address] [facility] Comment on above: Performed By: #### 3 0738 #### [facility] [address] [place] [address], [facility] pH (Bld) 7.43 [pH] Normal 7.35-7.[address] [facility] Comment on above: Performed By: #### 3 0738 #### [facility] [address] [facility] [place] [address], [facility] THB 13.6 g/dL Normal 12.0-16.[address] [facility] Comment on above: Performed By: #### 3 0738 #### [facility] [address] [place] [address], [facility] CBC W/DIFFon 05-29-2021 ABS IMM GRANS 0.0 10*3/uL Normal 0.0-0.[address] [facility] Comment on above: Performed By: #### 8 [id number] #### [facility] [address] [place] [address], [facility] ABS NEUTROPHILS 2.9 10*3/uL Normal 1.6-7.[address] [facility] Comment on above: Performed By: #### 8 [id number] #### [facility] [address] [place] [address], [facility] Basophils (Bld) [#/Vol] 0.1 10*3/uL Normal 0.0-0.[address] [facility] Comment on above: Performed By: #### 8 [id number] #### [facility] [address] [facility] [place] [address], [facility] Basophils/100 WBC (Bld) 1.3 % High 0.0-1.[address] [facility] Comment on above: Performed By: #### 8 [id number] #### [facility] [address] [facility] [address], [facility] Eosinophils (Bld) [#/Vol] 0.3 10*3/uL Normal 0.0-0.[address] [facility] Comment on above: Performed By: #### 8 [id number] #### [facility] [address] [place] [address], [facility] Eosinophils/100 WBC (Bld) 6.0 % Normal 0.0-6.[address] [facility] Comment on above: Performed By: #### 8 [id number] #### [facility] [address] [facility] [place] [id number], [facility] Erythrocyte distribution width (RBC) [Ratio] 12.5 % Normal 11.5-15.[address] [facility] Comment on above: Performed By: #### 8 [id number] #### [facility] [address] [place] [id number], [facility] Hematocrit (Bld) [Volume fraction] 42.6 % Normal 39.0-50.[address] [facility] Comment on above: Performed By: #### 8 [id number] #### [facility] [address] [facility] [place] [address], [facility] Hemoglobin (Bld) [Mass/Vol] 13.7 g/dL Normal 13.0-17.[address] [facility] Comment on above: Performed By: #### 8 [id number] #### [facility] [address] [facility] [place] [address], [facility] IMMATURE GRANS 0.4 % Normal 0.0-1.[address] [facility] Comment on above: Performed By: #### 8 [id number] #### [facility] [address] [place] [address], [facility] Lymphocytes (Bld) [#/Vol] 1.2 10*3/uL Normal 1.2-4.[address] [facility] Comment on above: Performed By: #### 8 [id number] #### [facility] [address] Lymphocytes/100 WBC (Bld) 23.2 % Normal 20.0-45.[address] [facility] Comment on above: Performed By: #### 8 [id number] #### [facility] [address] [place] [address], [facility] MCH (RBC) [Entitic mass] 30.2 pg Normal 27.0-33.[address] [facility] Comment on above: Performed By: #### 8 [id number] #### [facility] [address] [facility] [place] [address], [facility] MCHC (RBC) [Mass/Vol] 32.2 g/dL Normal 32.0-35.[address] [facility] Comment on above: Performed By: #### 8 [id number] #### [facility] [address] [facility] [place] [address], [facility] MCV (RBC) [Entitic vol] 94.0 fL Normal 82.0-98.[address] [facility] Comment on above: Performed By: #### 8 [id number] #### [facility] [address] [facility] [place] [address], [facility] Monocytes (Bld) [#/Vol] 0.8 10*3/uL Normal 0.1-1.[address] [facility] Comment on above: Performed By: #### 8 [id number] #### [facility] [address] [facility] [place] [address], [facility] MONOS 14.1 % High 5.0-12.[address] [facility] Comment on above: Performed By: #### 8 [id number] #### [facility] [address] [place] [address], [facility] Neutrophils/100 WBC (Bld) 55.0 % Normal 40.0-72.[address] [facility] Comment on above: Performed By: #### 8 [id number] #### [facility] [address] [facility] [place] [address], [facility] Nucleated RBC/100 WBC (Bld) [Ratio] 0 % Normal 0-[address] [facility] Comment on above: Performed By: #### 8 [id number] #### [facility] [address] [facility] [place] [address], [facility] PLAT CNT 211 10*3/uL Normal 150-[address] [facility] Comment on above: Performed By: #### 8 [id number] #### [facility] [address] [facility] [place] [address], [facility] RBC (Bld) [#/Vol] 4.53 10*6/uL Normal 4.20-5.[address] [facility] Comment on above: Performed By: #### 8 [id number] #### [facility] [address] [place] [address], [facility] WBC (Bld) [#/Vol] 5.31 10*3/uL Normal 4.00-10.[address] [facility] Comment on above: Performed By: #### 8 [id number] #### [address] [place], [place] [address] CHEST AND LATERALon 05-29-[address] [facility] Department of Radiology [address] [place] [id number] Patient Name: ISRAEL DEVINE : 1950 Sex: M Age: Race: White Pt. Location: Patient Status: O Ordered Date: 05/29/2021 3:05:00 PM Completed Date: 05/29/2021 03:10 PM Requesting Provider: SINGH DOTSON Attending Provider: SINGH DOTSON Report Copy To: DEB KLEIN Signs & Symptoms: I35.1 Nonrheumatic aortic (valve) insufficiency I10 History: Comments: EVALUATE Exam: CHEST AND LATERAL EXAMINATION: CHEST AND LATERAL 05/29/2021 3:10 PM CLINICAL HISTORY: I35.1 Nonrheumatic aortic (valve) insufficiency I10 TECHNOLOGIST COMMENTS: patient states he is to have heart surgery, no chest complaints QUESTION FOR THE RADIOLOGIST: EVALUATE TECHNIQUE: AP(PA) and Lateral views were obtained. COMPARISON: None available. FINDINGS: Heart is normal in size and it is in midline. Trachea is in midline. Mediastinum is otherwise unremarkable. Both lungs are free of pulmonary infiltrates or acute pulmonary pathology. Costophrenic angles are clear. There is no vascular congestion. Hemidiaphragms are normal in position and contour. There are mild degenerative changes in the thoracic spine. IMPRESSION: No evidence of pulmonary infiltrate or acute pulmonary pathology is identified. Electronically signed: Oneal Barth. Transcribed by: [email or web address], User Resident: Electronically Signed by: ONEAL BARTH @ 05/29/2021 03:39 PM Normal [facility] Comment on above: Order Comment: The A ptima SARS-CoV-2 assay is a nucleic acid amplification test intended for the qualitative detection of RNA from SARS-CoV-2 isolated and purified from nasopharyngeal ([employer]),oropharyngeal (OP), nasal swab, sputum, and bronchoalveolar lavage (BAL) specimens from patients with signs and symptoms of infection who are suspected of COVID-19. Results are for the identification of SARS-CoV-2 RNA. The SARS-CoV-2 RNA is generally detectable during the acute phase of infection. The Aptima SARS-CoV-2 Assay on the Astonish Results and Astonish Results Fusion system is intended for use by laboratory personnel specifically instructed and trained in the operation of the [place] and [place] Fusion system. The Aptima SARS-CoV-2 assay is only for use under the Food and Drug Administration Emergency Use Authorization. Testing is limited to laboratories certified under the Clinical Laboratory Improvement Amendments of 1988 (CLIA), 42 U.S.C. ???263a, to perform high complexity tests. Not Detected: Not detected does not preclude SARS-CoV-2 infection and should not be used as the sole basis for patient management decisions. Not detected results must be combined with clinical observations, patient history, and epidemiological information. COMP METABOLIC PANELon 05-29 Albumin [Mass/Vol] 4.3 g/dL Normal 3.5-5.[address] [facility] Comment on above: Performed By: #### 0 0121 ####[facility] [facility] [place] [address], [facility] ALKALINE PHOSPH 58 IU/L Normal 34-[address] [facility] Comment on above: Performed By: #### 0 0121 ####[facility] [facility] [address], [facility] ALT [Catalytic activity/Vol] 14 U/L Normal 7-[address] [facility] Comment on above: Performed By: #### 0 0121 ####[facility] [place] [address], [facility] AST [Catalytic activity/Vol] 19 U/L Normal 13-[address] [facility] Comment on above: Performed By: #### 0 0121 ####[facility] [place] [address], [place] Bilirubin [Mass/Vol] 0.7 mg/dL Normal 0.3-1.[address] [facility] Comment on above: Performed By: #### 0 0121 ####[facility] [place] [address], [facility] Calcium [Mass/Vol] 9.2 mg/dL Normal 8.6-10.[address] [facility] Comment on above: Performed By: #### 0 0121 ####[facility] [place] [address], [facility] Chloride [Moles/Vol] 107 mmol/L Normal 98-[address] [facility] Comment on above: Performed By: #### 0 0121 ####[facility] [place] [address], [facility] CO2 [Moles/Vol] 27 mmol/L Normal 21-[address] [facility] Comment on above: Performed By: #### 0 0121 ####[facility] [place] [address], [facility] Creatinine [Mass/Vol] 1.09 mg/dL Normal 0.70-1.[address] [facility] Comment on above: Performed By: #### 0 0121 ####[facility] [place] [address], [facility] GFR/1.73 sq M.predicted among blacks MDRD (S/P/Bld) [Vol rate/Area] mL/min/{1.73_m2} Normal >[address] [facility] Comment on above: Result Comment: Calc ulation may not be valid for patients over 70 years Performed By: #### 0 0121 ####[facility] [place] [address], [place] GFR/1.73 sq M.predicted among non-blacks MDRD (S/P/Bld) [Vol rate/Area] mL/min/{1.73_m2} Normal >[address] [facility] Comment on above: Result Comment: Calc ulation may not be valid for patients over 70 years Performed By: #### 0 0121 ####[facility] [place] [address], [place] Glucose [Mass/Vol] 78 mg/dL Normal 70-[address] [facility] Comment on above: Performed By: #### 0 0121 ####[facility] [place] [address], [place] Potassium [Moles/Vol] 4.4 mmol/L Normal 3.5-5.[address] [facility] Comment on above: Performed By: #### 0 0121 ####[facility] [place] [address], [place] Protein [Mass/Vol] 6.3 g/dL Normal 6.0-8.[address] [facility] Comment on above: Performed By: #### 0 0121 ####[facility] [place] [address], [place] Sodium [Moles/Vol] 140 mmol/L Normal 136-[address] [facility] Comment on above: Performed By: #### 0 0121 ####[facility] [place] [address], [place] Urea nitrogen [Mass/Vol] 26 mg/dL High 7-[address] [facility] Comment on above: Performed By: #### 0 0121 ####[facility] [place] [address], [place] HEMOGLOBIN A1Con 05-29-2021 Glucose [Moles/Vol] 117 mmol/L Normal [facility] Comment on above: Performed By: #### 3 0965 #### [facility] [address] [facility]. [address] HbA1c (Bld) [Mass fraction] 5.7 % Normal 4.0-6.[address] [facility] Comment on above: Performed By: #### 3 0965 #### [facility] [address] [facility]. [address] PROTHROMBIN TIMEon 1 INR Coag (PPP) [Relative time] 1.03 {INR} Normal 0.91-1.[address] [facility] Comment on above: Result Comment: ACCC P RECOMMENDED INR FOR WARFARIN THERAPY ----- ------- CONDITION INR PROPHYLAXIS OF VENOUS THROMBOSIS 2-3 (HIGH-RISK SURGERY) TREATMENT OF VENOUS THROMBOSIS 2-3 TREATMENT OF PULMONARY EMBOLISM 2-3 PREVENTION OF SYSTEMIC EMBOLISM: 2-3 ACUTE MYOCARDIAL INFARCTION TISSUE HEART VALVES VALVULAR HEART DISEASE ATRIAL FIBRILLATION RECURRENT SYSTEMIC EMBOLISM MECHANICAL HEART VALVE 2.5-3.5 FROM: ORAL ANTICOAGULANTS. MECHANISM OF ACTION, CLINICAL EFFECTIVENESS, AND OPTIMAL THERAPEUTIC RANGE. CHEST 1995;108:231S-246S. Performed By: #### 8 [id number] #### [facility] [address] [facility]. [address] PT Coag (PPP) [Time] 13.5 s Normal 12.3-14.[address] [facility] Comment on above: Result Comment: ALL RESULTS MUST BE INTERPRETED WITH RESPECT TO BLOOD DRAWING ARTIFACT OR DILUTION ERROR OF ANTICOAGULANT AT THE TIME OF SAMPLING. Performed By: #### 8 [id number] #### [facility] [address] [place] [address], [place] TYPE AND CROSSMATCHon 2020 ABO INTERPRETATION A Normal [facility] Comment on above: Order Comment: 4 UNI TS Performed By: #### 8 [id number] #### [facility] [address] [place] [address], [place] RH INTERPRETATION Positive Normal [facility] Comment on above: Order Comment: 4 UNI TS Performed By: #### 8 [id number] #### [facility] [address] [place] [address], [place] URINALYSIS REFLEXon 05-29-20 21 Appearance (U) SL CLOUDY Abnormal CLEAR [facility] Comment on above: Performed By: #### 3 0965 #### [facility] [address] [place] [address], [place] Bilirubin Ql (U) Negative Normal NEGATIVE [facility] Comment on above: Performed By: #### 3 0965 #### [facility] [address] [place] [address], [place] Color (U) YELLOW Abnormal YELLOW [facility] Comment on above: Performed By: #### 3 0965 #### [facility] [address] [place] [address], [place] EPIS FEW Normal FEW,OCC,NON E SEEN [facility] Comment on above: Performed By: #### 3 0965 #### [facility] [address] [place] [address], [place] Glucose Ql (U) Negative Normal NEGATIVE [facility] Comment on above: Performed By: #### 3 0965 #### [facility] [address] [place] [address], [place] Hemoglobin Ql (U) Negative Abnormal NEGATIVE [facility] Comment on above: Performed By: #### 3 0965 #### [facility] [address] [place] [address], [place] KETONE Negative Normal NEGATIVE [facility] Comment on above: Performed By: #### 3 0965 #### [facility] [address] [place] [address], [facility] LEUK ALYSA Negative Normal NEGATIVE [facility] Comment on above: Performed By: #### 3 0965 #### [facility] [address] [place] [address], [facility] MUCUS THREADS FEW Abnormal NONE SEEN [facility] Comment on above: Performed By: #### 3 0965 #### [facility] [address] [facility]. [address] Nitrite Ql (U) Negative Normal NEGATIVE [facility] Comment on above: Performed By: #### 3 0965 #### [facility] [address] [facility] [address] pH (U) 5.0 [pH] Normal 5.0-8.[address] [facility] Comment on above: Performed By: #### 3 0965 #### [facility] [address] [facility]. [address] Protein Ql (U) Negative Normal NEGATIVE [facility] Comment on above: Performed By: #### 3 0965 #### [facility] [address] [facility] [place] [address], [facility] RBC NONE SEEN Normal NONE SEEN [facility] Comment on above: Performed By: #### 3 0965 #### [facility] [address] [facility] [place] [address], [facility] SPEC GRAV 1.026 High 1.015-1.[address] [facility] Comment on above: Performed By: #### 3 0965 #### [facility] [address] [place] [address], [facility] WBC UA 0-2 Abnormal NONE SEEN [facility] Comment on above: Performed By: #### 3 0965 #### [facility] [address] Cardiovascular Lab Reporton 05-18-2021 Cardiovascular Lab Report [facility] Patient Name: Israel Devine [facility] MR #: [id number] Physician: Pippa Pacheco of [facility] Medicine Service Date: 05/18/2021 Division of Birthdate: 1950 Cardiology Room #: Adult Cardiovascular Services [facility] [address] [facility] [place] [address] Cardiovascular Laboratory Report INDICATION: Symptomatic severe aortic valve regurgitation. PROCEDURES: 1. Right heart catheterization. 2. Access into right internal jugular vein under ultrasound guidance. 3. Bilateral selective coronary angiography from the left radial access. METHODS: Procedure was explained to the patient with risks and benefits. He signed informed consent. He was brought to [facility] in a fasting state. The right neck area was prepped and draped in usual fashion. Micropuncture technique and ultrasound guidance was used for access in the right internal jugular vein. A 6-Armenian x 11 cm sheath was placed. A 6-Armenian Perales catheter was used for right catheterization with measurement of pressures and calculation of cardiac output using the estimated Mervin method. Perales catheter was removed. Access was obtained in the left radial artery using micropuncture technique. A 6-Armenian x 11 cm Hydrophilic sheath was advanced. Verapamil was given through the sheath and heparin was administered intravenously. Initial catheter advancement was made feasible using an angled Glidewire. Bilateral selective coronary angiography was then performed using 6-Armenian JL4 and JR4 diagnostic catheters. Catheters were removed. Procedure was concluded. A TR band was used for hemostasis in the left radial artery and manual compression was used for hemostasis in the right internal jugular vein. The patient tolerated the procedure well. He will be observed for 3 hours and then discharged to home. TOTAL FLUORO TIME: 2.08 minutes. TOTAL AIR KERMA: 396 mGy. TOTAL CONTRAST VOLUME: 30 mL. HEMODYNAMICS: RA 7, RV 27/7, 9, PA 28/12, mean 22. Pulmonary capillary wedge pressure 14. AO 131/66, mean 94. Cardiac output 4.53, cardiac index 2.09. PA sat 59%, AO sat 92%. CORONARY ANGIOGRAPHY: This is a right dominant circulation. Left main: It arises from left coronary cusp. It bifurcates into left anterior descending and circumflex vessels. The left main is free of disease. Left anterior descending: This has a 20% proximal stenosis. Circumflex vessel: This has a 40% mid segment stenosis. Right coronary artery: This is a large and dominant vessel. It has minimal luminal irregularities. FINDINGS: 1. Mild 2-vessel coronary artery disease with 20% proximal LAD and 40% mid circumflex stenosis and a minimal disease elsewhere. 2. Mildly elevated filling pressures. 3. Normal pulmonary arterial pressures. 4. Reduced cardiac output and cardiac index. RECOMMENDATIONS: Surgical consultation for aortic valve replacement. Electronically Signed by: Pippa Benitez M.D. 05/19/2021 08:11 A Pippa Benitez M.D. Date Dict: 05/18/2021/12:57 P/Pippa Benitez M.D. Date Trans: 05/18/2021 01:38 P/rebecao [id number] cc: Deb Klein M.D. [address] [phone] [facility] March 30, 2021 Deb Klein, [address] [place] [id number] Re: ISRAEL DEVINE Date of : 1950 Thank you for your referral of Israel Devine who was seen on consultation on March 29, 2021, for screening colonoscopy. I have enclosed my consultation note for your review. I will be happy to follow [place]. Sincerely, Mane Dorsey MD General Surgery Normal [facility] Ambulatory Clinical Summaryo n 03-29-2021 Ambulatory Clinical Summary {[id number] Normal [facility] General Surgery Office/Clini c Noteon 03-29-2021 General Surgery Office/Clinic Note HPI Staff New pt., referred by Dr. Klein for screening colonoscopy. Last c-scope & egd was [address] Banks @ [facility]. Mother had colon surgery ? colon ca History of Present Illness 70 yo male with h/o a fib, on Xarelto, hyperlipidemia; referred for colorectal screening; denies change in bms or blood in stools, no abdominal complaints; last colonoscopy 2013 with diverticulosis; also had colonoscopy in 2007, no h/o polyps, no previous abdominal operations; on Celebrex, no asa; no SBE prophylaxis; no fmhx of GI malignancy or IBD. Review of Systems PHQ Score Initial Depression Screen Score: 1 ROS - Provider Constitutional: no fever, no sweats, no weight loss. Eyes: no glasses, no blurred vision, no visual loss. ENMT: no dentures, no hoarseness, no swallowing difficulties, no hearing loss, no ear infection(s), no nose bleeds. Cardiovascular: normal blood pressure, no chest pain, regular heartbeat, no heart murmur. Respiratory: no shortness of breath, no cough, no asthma, no wheezing. Gastrointestinal: no nausea, no vomiting, no diarrhea, no constipation, no blood in stool, no change in bowel habits, no abdominal pain, no hepatitis. Genitourinary: no kidney stones, no urine infection, no dysuria. Musculoskeletal: mild pain, no weakness. Skin: no changing moles, no rash, no skin lumps. Neurologic: no seizures, no epilepsy, no headache. Psychiatric: no emotional or psychiatric problem. Heme/Lymph: no bleeding problems, no anemia, no blood clots, no transfusions. Allergy/Immunologic: no swollen lymph nodes/glands, no IV drug abuse. Other: Additional ROS info: Except as noted in the above Review of Systems and in the History of Present Illness, all other systems have been reviewed and are negative or noncontributory. Physical Exam Vitals & Measurements T: 36.7 ?C (Temporal Artery) HR: 95(Peripheral) RR: 16 BP: 146/80 SpO2: 96% HT: 182.9 cm HT: 182.88 cm WT: 93.8 kg WT: 93.8 kg BMI: 28.05 HEENT: normal conjunctiva, sclera clear, no scleral icterus, EOM intact, PERRLA, oral mucosa moist without lesions. Neck: trachea midline, no mass, symmetric, no thyromegaly or nodules, no adenopathy Respiratory: lungs CTA, respirations non labored. Cardiovascular: regular rate and rhythm, no murmur, no pedal edema or varicosities. Gastrointestinal: obese, soft, non distended, no tenderness, no masses, no palpable hernias, diastasis recti yes, no hepatosplenomegaly; normal bs Lymphatic: no cervical adenopathy, Musculoskeletal: normal gait, digits and nails without infection, nodes, cyanosis, clubbing. Skin: no rashes, no lesions, no ulcers, no subcutaneous nodules, induration. Psychiatric/Neuro: oriented to time, place, person, judgement normal, affect appropriate for age, insight intact, no focal deficits. Tests: review of old records completed, Assessment/Plan 1. Screening for malignant neoplasm of colon (Z12.11: Encounter for screening for malignant neoplasm of colon) patient due in 3 years, will place in recall; call sooner if problems/questions. Follow-up No qualifying data available Patient Education Colonoscopy, Adult, Care After Colonoscopy, Adult Problem List/Past Medical History Ongoing A-fib Anxiety Gastric ulcer History of BPH Hyperlipidemia Iron deficiency anemia Screening for malignant neoplasm of colon Historical No qualifying data Procedure/Surgical History Plantar fasciotomy (12/16/2015), Colonoscopy (03/15/2014), EGD - Esophagogastroduodenoscopy (03/15/2014), Colonoscopy (03/10/2008), Arthroplasty of knee, Arthroscopy of knee. Medications CeleBREX 200 mg Cap, Oral, Daily Centrum Silver, 1 tab(s), Oral, Daily Centrum Silver oral tablet, Oral, Daily citalopram 40 mg Tab, Oral, Daily ferrous sulfate 325 mg Tab, Oral, TID fluticasone topical 0.005% ointment, Topical, BID Metoprolol tartrate 50 mg Tab, Oral, BID omeprazole 20 mg Cap-DR, 20 mg= 1 cap(s), Oral, Daily simvastatin 80 mg Tab, Oral, Once a day (at bedtime) tamsulosin 0.4 mg Cap, Oral, Daily Xarelto 20 mg oral tablet, 20 mg= 1 tab(s), Oral, qPM Allergies No Known Medication Allergies Social History Alcohol - Low Risk, 03/29/2021 Substance Abuse - Denies Substance Abuse, 03/29/2021 Tobacco Former smoker, quit more than 30 days ago Tobacco Use:., 03/29/2021 Family History COPD: Sister. Colon cancer: Mother. Lung cancer: Sister. Normal [facility] Comment on above: Result Comment: Elec tronically Signed By: AUSTYN GUILLAUME, Mane Bustamante.br\Date and Time Signed: 03/29/21 14:43 EDT Patient Educationon 03-29-20 Patient Education Radiology Colonoscopy, Adult, Care After This sheet gives you information about how to care for yourself after your procedure. Your health care provider may also give you more specific instructions. If you have problems or questions, contact your health care provider. What can I expect after the procedure? After the procedure, it is common to have: ? A small amount of blood in your stool for 24 hours after the procedure. ? Some gas. ? Mild abdominal cramping or bloating. Follow these instructions at home: General instructions ? For the first 24 hours after the procedure: ? Do not drive or use machinery. ? Do not sign important documents. ? Do not drink alcohol. ? Do your regular daily activities at a slower pace than normal. ? Eat soft, gsfk-mg-iotjpg foods. ? Take iazh-bzg-srebzmu or prescription medicines only as told by your health care provider. Relieving cramping and bloating ? Try walking around when you have cramps or feel bloated. ? Apply heat to your abdomen as told by your health care provider. Use a heat source that your health care provider recommends, such as a moist heat pack or a heating pad. ? Place a towel between your skin and the heat source. ? Leave the heat on for 20?30 minutes. ? Remove the heat if your skin turns bright red. This is especially important if you are unable to feel pain, heat, or cold. You may have a greater risk of getting burned. Eating and drinking ? Drink enough fluid to keep your urine pale yellow. ? Resume your normal diet as instructed by your health care provider. Avoid heavy or fried foods that are hard to digest. ? Avoid drinking alcohol for as long as instructed by your health care provider. Contact a health care provider if: ? You have blood in your stool 2?3 days after the procedure. Get help right away if: ? You have more than a small spotting of blood in your stool. ? You pass large blood clots in your stool. ? Your abdomen is swollen. ? You have nausea or vomiting. ? You have a fever. ? You have increasing abdominal pain that is not relieved with medicine. Summary ? After the procedure, it is common to have a small amount of blood in your stool. You may also have mild abdominal cramping and bloating. ? For the first 24 hours after the procedure, do not drive or use machinery, sign important documents, or drink alcohol. ? Contact your health care provider if you have a lot of blood in your stool, nausea or vomiting, a fever, or increased abdominal pain. This information is not intended to replace advice given to you by your health care provider. Make sure you discuss any questions you have with your health care provider. Document Released: 02/26/2005 Document Revised: 05/07/2018 Document Reviewed: 09/25/2016 [employer] Patient Education ? 2020 [employer] Colonoscopy, Adult A colonoscopy is an exam to look at the entire large intestine. During the exam, a lubricated, flexible tube that has a camera on the end of it is inserted into the anus and then passed into the rectum, colon, and other parts of the large intestine. You may have a colonoscopy as a part of normal colorectal screening or if you have certain symptoms, such as: ? Lack of red blood cells (anemia). ? Diarrhea that does not go away. ? Abdominal pain. ? Blood in your stool (feces). A colonoscopy can help screen for and diagnose medical problems, including: ? Tumors. ? Polyps. ? Inflammation. ? Areas of bleeding. Tell a health care provider about: ? Any allergies you have. ? All medicines you are taking, including vitamins, herbs, eye drops, creams, and lyrk-iyk-cslmitq medicines. ? Any problems you or family members have had with anesthetic medicines. ? Any blood disorders you have. ? Any surgeries you have had. ? Any medical conditions you have. ? Any problems you have had passing stool. What are the risks? Generally, this is a safe procedure. However, problems may occur, including: ? Bleeding. ? A tear in the intestine. ? A reaction to medicines given during the exam. ? Infection (rare). What happens before the procedure? Eating and drinking restrictions Follow instructions from your health care provider about eating and drinking, which may include: ? A few days before the procedure ? follow a low-fiber diet. Avoid nuts, seeds, dried fruit, raw fruits, and vegetables. ? 1?3 days before the procedure ? follow a clear liquid diet. Drink only clear liquids, such as clear broth or bouillon, black coffee or tea, clear juice, clear soft drinks or sports drinks, gelatin dessert, and popsicles. Avoid any liquids that contain red or purple dye. ? On the day of the procedure ? do not eat or drink anything starting 2 hours before the procedure, or within the time period that your health care provider recommends. Up to 2 hours before the procedure, you may continue to drink clear liquid (more content not included)... [facility] Reminderson 03-29-2021 Reminders - From: Linh Martinez To: [facility] - Clinical; Sent: 03/29/2021 14:40:03 EDT Show up: 03/29/2024 14:39:00 EDT Subject: colonoscopy recall Due Date/Time: 03/29/2024 14:39:00 EDT Reminder/Recall Dr. Drosey recomm screening cscope in 2023 , last scope was [address] Banks [facility] Physician Referralon 021 Physician Referral [id number] [facility] Encounters Encounter Date Encounter Type Care Provider Facility Start: 03-04-2023 End: 03-04-2023 ambulatory MALGORZATA DANIELLE [facility] Start: 06-22-2022 End: 06-23-[address] DEB KLEIN Facility:[facility] Start: 02-26-[address] DEB KLEIN Facility :[facility] Start: 01-30-2022 End: 01-31-[address] DEB KLEIN Facility:[facility] Start: 01-03-2022 End: 01-04-2022 ambulatory MALGORZATA DANIELLE Facility:[facility] Start: 12-19-2021 End: 12-20-[address] DEB KLEIN Facility:[facility] Start: 11-15-[address] PIPPA BENITEZ Fac ility:[facility] Start: 09-08-2021 End: 09-09-[address] PIPPA BENITEZ Facility:[facility] Start: 08-07-2021 End: 11-15-[address] PIPPA BENITEZ Facility:[facility] Start: 07-12-2021 End: 07-17-2021 Evaluation and management of inpatient DEB KLEIN Facility:[facility] Start: 05-18-2021 End: 05-19-2021 ambulatory DEB HOY Facility:[facility] Start: 04-27-2021 End: 04-28-2021 ambulatory DEB HOY Facility:[facility] Procedures Date Procedure Procedure Detail Performing Clinician Start: 01-30-2022 PSA screening MALGORZATA KELLY Comment on above: Performed By: #### O BSCRN #### [facility] [address] [place] [address] Dr. Matt Suero Start: 12-19-2021 PSA screening MALGORZATA KELLY Comment on above: Performed By: #### P SAD #### [facility] [address] [address] [address] Matt Suero Start: 05-29-2021 Antibody screen DEB KLEIN Comment on above: Order Comment: 4 UNI TS Performed By: #### [id number] #### [address] Payers Date Payer Category Payer [employer] ( and others) [id number] 1960 Medicare [id number] 1960 Self-pay 1950 Unknown [id number] 1950 Unknown [id number] 1950 Unknown [id number] 1950 Unknown [id number] 1950 Unknown [id number] 1949 Unknown [id number] 1949 Unknown [id number] 1949 Unknown [id number] 1949 Unknown [id number] 1950 Unknown [id number] Unknown [id number] Progress note 03-04-2023 Note Date & Type Note Facility 03-04-2023 Note Currently stable wit hout any concerning symptoms Continue metoprolol and zocor Repeat echocardiogram. [facility] Progress note 03-04-2023 Note Date & Type Note Facility 03-04-2023 Note No concerning sympto ms and pt doing quite well without any activity limiting symptoms Repeat echocardiogram [facility] Progress note 03-04-2023 Note Date & Type Note Facility 03-04-2023 Note [facility] II- currently e uvolemic without exacerbation Continue GDMT- remains on lasix 20 mg daily- wants to try lasix 20 mg every other day- and d/w pt to monitor daily weight, symptoms and for any symptoms of water retention to call office and he voiced understanding Diuretic therapy- lasix 20 mg every other day. Monitor daily weights, I&O, fluid restriction 1.5-2L/day, renal function and electrolytes- script for labs provided [facility] Progress note 03-04-2023 Note Date & Type Note Facility 03-04-2023 Note S/P cryomaze and atr iclip Remains on xarelto anticoagulation- denied any bleeding tendencies Continue metoprolol [facility] Progress note 03-04-2023 Note Date & Type Note Facility 03-04-2023 Note Continue zocor and s cript for annual labs provided including lipid level and LFT [facility] Progress note 03-04-2023 Note Date & Type Note Facility 03-04-2023 Note Coronary artery dise ase is stable Continue GDMT- no ASA with xarelto -(pt also taking celebrex- HTN well controlled) Continue zocor continue risk factor modifications- heart healthy diet, regular exercise as tolerated and continue all medications. [facility] Progress note 03-04-2023 Note Date & Type Note Facility 03-04-2023 Note S/p bioprosthetic va lve replacement 07/18 Continue metoprolol No concerning symptoms currently, continues with cardiac rehab- tolerating well Repeat echocardiogram [facility] Progress note 03-04-2023 Note Date & Type Note Facility 03-04-2023 Note [facility] PROGR ESS NOTE HPI: Israel Devine is a 72 y.o. male here for routine f/U HPI Routine F/U CAD, AO valve regurg s/p bioprosthetic valve replacement 07/18- cryomaze and atriclip, and a fib. Continue with cardiac rehab and denied any activity limiting symptoms- admits generalized fatigue and states he has to force himself to come exercise on a regular basis. Denied chest pain, report typical shortness of breath- and that SOB is much better s/p AO valve replacement, Denied orthopnea, palpitations. Review of Systems Constitutional: Negative. Respiratory: Negative. Cardiovascular: Negative. Neurological: Negative. All other systems reviewed and are negative. Previous HPI per Dr Benitez 03/30/22 Israel Devine is a 72-year-old man who is seen in follow up on mild CAD (cath 2012), chronic AF on anticoagulation with Xarelto, hyperlipidemia on simvastatin, and aortic regurgitation. Previously he was evaluated by an echocardiogram to follow-up on his aortic valve regurgitation and this showed evidence of at least moderate to severe aortic valve regurgitation. He underwent a transesophageal echocardiogram that showed severe aortic valve regurgitation with a functionally bicuspid aortic valve with fusion of the left and right coronary cusps. He has moderate aortic root dilatation measuring 4.4 cm. Cardiac catheterization in April 2021 showed mild CAD. On 07/12/2021 he underwent minimally invasive aortic valve replacement with a 27 mm INSPIRIS pericardial valve, extended left atrial cryomaze procedure and exclusion of the left atrial appendage with 45 mm AtriClip device. He reports that he has shortness of breath on exertion, NYHA class II but not limiting him, improving with time. No lower extremity edema on the current diuretic therapy with furosemide 20 mg and 40 mg alternating every other day. No angina. No palpitations. No syncope. Blood testing 12/19/2021: Hemoglobin 11.6, platelets 277, potassium 4.6, BUN 21, creatinine 1.01, cholesterol 153, HDL 69, triglycerides 72, LDL 69. Echocardiogram 01/03/2022: LV systolic function is normal, LVEF 60 to 65%, moderate LVH, normal diastolic function, moderate to severe biatrial enlargement, RV is mildly dilated with normal systolic function, mild tricuspid regurgitation, mild mitral regurgitation, a bioprosthetic aortic valve is seen with normal Doppler flows, mild perivalvular insufficiency, aortic sinuses and ascending aorta are mildly enlarged. Prior testing: Cardiac catheterization 05/18/2021: 1. Mild 2-vessel coronary artery disease with 20% proximal LAD and 40% mid circumflex stenosis and a minimal disease elsewhere. 2. Mildly elevated filling pressures. 3. Normal pulmonary arterial pressures. 4. Reduced cardiac output and cardiac index. Echocardiogram 03/29/2021: Low normal LV systolic function, EF 50-55%, normal right ventricular systolic function, cannot rule out bicuspid aortic valve with mild to moderate stenosis and moderate to severe regurgitation. Normal right-sided pressures. Moderately dilated aortic root. Severe left atrial dilatation. A ANTONIO may provide better assessment of the aortic valve. ANTONIO 04/27/2021: The EF is 55 % visually. No regional wall motion abnormality. The right ventricle appears normal in size. Right ventricular systolic function appears preserved. The left atrium is moderately enlarged. Color flow Doppler is suggestive of a patent foramen ovale. Mild mitral regurgitation. Functionally bicuspid aortic valve with fusion of left and right coronary cusps. Severe aortic valve regurgitation. The aortic root size in 2D measures 4.40 cm. The aortic root exhibits moderate dilation. The ascending aorta measures 3.90 cm. Mild dilatation of the ascending aorta. MRI brain 04/05/2021: Atrophy and microangiopathic changes, no acute infarct. No acute hemorrhage. Blood testing 03/22/2021: Hemoglobin 13.6, platelets 202, potassium 4.6, BUN 21, creatinine 1.09. LFTs within normal limits. Cholesterol 178, HDL 74, triglycerides 103, LDL 83. Prior cardiac testing: Stress test at [facility] on 09/25/18 shows EF at 56%, no acute or reversible ischemia, fixed inferior wall perfusion defect vs. diaphragm attenuation artifact similar to previously seen, and mild cardiomegaly. Echocardiogram 03/03/2019: Global left ventricular systolic function is normal (Visually estimated EF 60%). The left ventricle is normal size. Left ventricular wall thickness is mildly increased. Concentric left ventricular hypertrophy. No regional wall motion abnormality. Unable to assess diastolic dysfunction. Normal right ventricular systolic function. The left atrium is severely enlarged. The right atrium is severely enlarged. Mild aortic valve regurgitation. Doppler studies suggest normal right sided pressures. Left ventricular filling pressure is normal. Compared to the prior echocardiogram 02/11/18 aortic regurgitation (more content not included)... [facility] Progress note 03-04-2023 Note Date & Type Note Facility 03-04-2023 Note Patient here for 1 y ear follow up hx of aortic valve replacement, afib, CAD, and hypertension. C/o fatigue, which is not new. He does cardiac rehab twice a week and he's able to do the exercises without SOB. Review of Systems Constitutional: Positive for malaise/fatigue. All other systems reviewed and are negative. [facility] Discharge summary note 08-03-2021 Note Date & Type Note Facility 08-03-2021 Note MR#: [id number] [facility] Pt. Name: Israel Devine Admitted: 07/12/2021 Discharged: 07/17/2021 Date of : 1950 Physician: Singh Dotson MD DISCHARGE SUMMARY PRINCIPAL DIAGNOSIS: Severe aortic valve stenosis. SECONDARY DIAGNOSES: Persistent atrial fibrillation, coronary artery disease, essential hypertension, hyperlipidemia, anxiety, depression, benign prostatic hyperplasia, pneumonia, and bronchitis. PROCEDURES PERFORMED AND TREATMENT RENDERED: This is a 71-year-old male who had a past medical history of severe in situ aortic insufficiency, moderate aortic stenosis, and persistent atrial fibrillation that was becoming increasingly symptomatic with increased shortness of breath. On 07/12/2020, patient underwent minimally invasive aortic valve replacement with a 27 mm Inspiris pericardial valve, CryoMaze procedure, and exclusion of left atrial appendage with a 45 mm AtriClip device. He tolerated the procedure well with no postoperative complications. He was taken from the operating room to the MICU for postoperative recovery. Patient was extubated per fast track protocol. Patient progressed well with this postoperative course. During postoperative course, patient had more than 2 episodes of atrial fibrillation. All invasive lines and tubes are removed. He was weaned down the room air. Patient was eating and drinking accordingly. He was able to go to the bathroom regularly. Patient was evaluated by inpatient rehab services and recommended to go to rehab once discharged from the hospital to build further strength when he went back home. Patient and family were agreeable. Patient was taking Plavix during hospital stay and then was changed to Xarelto upon discharge due to more than 2 episodes of atrial fibrillation postoperatively. Surgical incision and tube sites were cleaned, dry, and intact upon discharge. Patient was discharged to rehab of [facility]. DISCHARGE CONDITION: Patient's condition at discharge, stable. Good. DISCHARGE DISPOSITION: [facility]. HOME MEDICATIONS: Celebrex 200 mg daily, simvastatin 80 mg daily, Celexa 40 mg daily, omeprazole 20 mg daily, lopressor 25 mg twice daily, iron 325 mg daily, Xarelto 20 mg daily, Flomax 0.4 mg daily. CHANGED MEDICATIONS: Metoprolol tartrate 50 mg every 8 hours. NEW MEDICATIONS: Amiodarone 100 mg twice daily, aspirin 81 mg daily, furosemide 40 mg daily, potassium chloride 20 mEq daily, Colace 200 mg twice daily as needed, oxycodone/acetaminophen 5 mg/325 mg one tablet every 4 hours as needed. DISCHARGE MEDICATIONS: Amiodarone 100 mg twice daily, aspirin 81 mg daily, Celebrex 200 mg daily, Celexa 40 mg daily, furosemide 40 mg daily, iron 325 mg daily, metoprolol tartrate 50 mg every 8 hours, omeprazole 20 mg daily, potassium chloride 20 mEq daily, simvastatin 80 mg daily, Flomax 0.4 mg daily, Xarelto 20 mg daily, Colace 200 mg twice daily as needed, oxycodone/acetaminophen 5 mg/325 mg one tablet every 4 hours as needed. DISCHARGE INSTRUCTIONS: Patient was provided with discharge instructions of wound care and instructions for surgery. Instructions were provided morning times when he returned to the hospital. He was provided a list of updated medications. Followup appointments were made for him to come to the CT Surgery in 2 weeks. Cardiology followup appointment was made for patient, and he was instructed to follow up with his PCP in 1-2 weeks and make an appointment on his own. All discharge instructions were faxed [facility]erged With [facility]. Electronically Signed by: Singh Dotson MD 08/03/2021 09:50 A Singh Dotson MD I personally saw this patient on the day of the encounter, performed the weir portion(s) of the service and participated in the management and confirm the resident's documentation. Please note there may be an additional personal documentation from me. Date Dict: 08/02/2021/08:12 P/Kayla Wing CNP Date Trans: 08/03/2021 01:27 A/tangela [id number] cc: Deb Klein M.D. [id number] [facility] [id number] [facility] Summary Purpose Family History No Family History Records FoundNo Family History Records FoundNo Family History Records FoundNo Family History Records Found Advance Directives No Advanced Directives Records FoundNo Advanced Directives Records FoundNo Advanced Directives Records FoundNo Advanced Directives Records Found Additional Source Comments (unrecognized sect ion and content) No Status Records FoundNo Status Records FoundNo Status Records FoundNo Status Records Found INFORMATION SOURCE (unrecogn ized section and content) DATE CREATED AUTHOR 04/01/2021 [facility] DATE CREATED AUTHOR AUTHOR'S ORGANIZ ATION 03/23/2022 [facility] DATE CREATED AUTHOR AUTHOR'S ORGANIZ ATION 06/28/2022 [facility] DATE CREATED AUTHOR AUTHOR'S ORGANIZ ATION 03/04/2023 [facility] FOR RECORDS PERTAINING TO PATIENTS WHO ARE OR HAVE BEEN ENROLLED IN A CHEMICAL DEPENDENCY/SUBSTANCEABUSE PROGRAM, SOME INFORMATION MAY BE OMITTED. This clinical summary was aggregated from multiple sources. Caution should be exercised in using it in the provision of clinical care. This summary normalizes information from multiple sources, and as a consequence, information in this document may materially change the coding, format and clinical context of patient data. In addition, data may be omitted in some cases. CLINICAL DECISIONS SHOULD BE BASED ON THE PRIMARY CLINICAL RECORDS. [facility] [employer] [facility]. provides no warranty or guarantee of the accuracy or completeness of information in this document.
[2023-08-01 10:39] LABS: Basophils Absolute Auto 0.1 10^3/uL (0.0-0.1); Basophils Percent Auto 1.8 % (0.2-2.0); Eosinophils Absolute Auto 0.3 10^3/uL (0.0-0.7); Eosinophils Percent Auto 7.1 % (0.9-7.0); Hematocrit 39.5 % (42.0-54.0); Hemoglobin 12.8 g/dL (14.0-18.0); Immature Granulocytes Abs Auto 0.01 10^3/uL (0.00-0.03); Immature Granulocytes Pct Auto 0.2 % (0.0-0.5); Lymphocytes Absolute Auto 0.9 10^3/uL (1.2-3.8); Lymphocytes Percent Auto 20.5 % (20.5-60.0); Mean Corpuscular HGB Conc 32.4 g/dL (29.9-35.2); Mean Corpuscular Hemoglobin 30.5 pg (25.9-34.0); Mean Platelet Volume 9.8 fL (9.5-13.5); Monocytes Absolute Auto 0.5 10^3/uL (0.3-0.8); Monocytes Percent Auto 11.2 % (1.7-12.0); Neutrophils Absolute Auto 2.6 10^3/uL (1.4-6.5); Neutrophils Percent Auto 59.2 % (43.0-75.0); Platelet Count 220 10^3/uL (150-450); Red Cell Distribution Width 12.7 % (11.0-15.0); White Blood Count 4.4 10^3/uL (4.0-11.0)
[2023-08-01 11:05] LABS: Estimated Average Glucose 123 mg/dL; Glycohemoglobin A1C 5.9 % (4.5-6.2)
[2023-08-01 11:06] LABS: Alanine Aminotransferase 31 U/L (16-63); Albumin Globulin Ratio 0.9; Albumin Level 3.5 g/dL (3.4-5.0); Alkaline Phosphatase 59 U/L (46-116); Aspartate Amino Transferase 22 U/L (15-37); BUN Creatinine Ratio 19.3; Bilirubin Total 0.5 mg/dL (0.2-1.0); Calcium 9.1 mg/dL (8.5-10.1); Chloride 103 mmol/L (98-107); Chol HDL Ratio 2.8; Cholesterol 199 mg/dL (<=200); Estimated GFR (African America >60 (>=60); Estimated GFR (Non-African Ame >60 (>=60); Free T3 2.61 pg/mL (2.18-3.98); Globulin 3.7 g/dL; Glucose 95 mg/dL (74-106); HDL Cholesterol 70 mg/dL (40-60); Sodium 138 mmol/L (136-145); Thyroid Stimulating Hormone 3.081 uIU/mL (0.358-3.740); Total Protein 7.2 g/dL (6.4-8.2); Triglycerides 130 mg/dL (<=150)
[2023-08-01 11:58] LABS: Prostate Specific Antigen Scrn 1.82 ng/mL (<=4.00)
[2023-09-19 14:41] LABS: Testosterone 407 ng/dL (264-916)
== END 2023-08-01 10:17 | disposition home or self-care (01) ==
LOC: LAB 10:17
PROVIDERS: PCP Family Medicine; Visit Provider Family Medicine
DX: U07.1 COVID-19 (principal); J20.9 Acute bronchitis, unspecified; E29.1 Testicular hypofunction; E78.00 Pure hypercholesterolemia, unspecified; I48.20 Chronic atrial fibrillation, unspecified; R73.09 Other abnormal glucose; Z12.5 Encounter for screening for malignant neoplasm of prostate; Z12.12 Encounter for screening for malignant neoplasm of rectum
CPT/HCPCS: 36415; 80053; 80061; 83036; 84403; 84436; 84443; 84481; 85025; G0103

== ENCOUNTER 2023-08-05 14:16 | Outpatient (REF) | payer MEDICARE, OTHER, SELFPAY ==
--- OUTSIDE RECORDS SUMMARY | 2023-08-05 14:22 | XMS_ITS | CCD ---
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 Name Role Phone DEB KLEIN Primary Care [...] disease (3 sources) Atherosclerotic heart disease of [place] coronary artery without angina pectoris; Translations: [ASHD KIVALINA CA W/O ANGINA PECTORIS] Onset: 12-21-2021 Chronic [...] Range Facility Office Visiton 03-04-2023 Follow-up visit [id number] Beau Devine 1950 M Date Provider Department Center 03/04/2023 MALGORZATA STAFFORD [facility] Family History Family history unknown: Yes Level of Service:59027 ME OFFICE/OUTPATIENT ESTABLISHED MOD MDM 30-39 MIN Normal [facility] 36on 02-22-2023 36 Patient needs an jie ointment for refills Normal [facility] PSA, FREE AND TOTAL RATIOon 06-23-2022 % Free PSA 14.7 % Normal [facility] Comment on above: Result Comment: The table [...] men. Performed By: #### P SAFREE #### [facility] [address] [address] [address] Matt Suero Prostate specific Ag [Mass/Vol] 1.7 ng/mL Normal 0.0-4.0 [facility] Comment on above: Result Comment: Keiko menendez ECLIA methodology. . According to the [employer], Serum PSA should decrease and [...] disease. Performed By: #### P SAFREE #### [facility] [address] [address] [address] Matt Suero PSA, Free 0.25 ng/mL Normal N/A [facility] Comment on above: Result Comment: Roch gemma ECLIA methodology. Performed By: #### P SAFREE #### [facility] [address] [place], [place] [address] Dr. Matt Suero TESTOSTERONE, TOTALon 2021 Testosterone [Mass/Vol] 302 ng/dL Normal 264-916 [facility] Comment on above: Result Comment: Adul t male reference interval is based on a population of healthy nonobese males (BMI <30) between 19 and 39 years old. Wilfredo et.al. JCEM 2017,102;4707-1389. PMID: [id number]. Performed By: #### O BSCRN #### [facility] [address] [place], [place] [address] Dr. Matt Suero 36on 06-07-2022 36 You saw patient on (in [place]) and he wanted to know if he could stop lasix. I don't see a mention of it in your assessment/plan. Can he stop? Normal [facility] PSA, FREE AND TOTAL RATIOon 02-02-2022 % Free PSA 13.2 % Normal [facility] Comment on above: Result Comment: The table [...] men. Performed By: #### O BSCRN #### [facility] [address] [place], [place] [address] Dr. Matt Suero Prostate specific Ag [Mass/Vol] 2.2 ng/mL Normal 0.0-4.0 [facility] Comment on above: Result Comment: Keiko TURNER methodology. . According to the [place] [employer], Serum PSA should decrease and [...] disease. Performed By: #### O BSCRN #### [facility] [address] [place], [place] [address] Dr. Matt Suero PSA, Free 0.29 ng/mL Normal N/A [facility] Comment on above: Result Comment: Keiko menendez ECLIA methodology. Performed By: #### O BSCRN #### [facility] [address] [place], [place] [address] Dr. Matt Suero ECHOCARDIO M/2D COMPLETEon 0 01-03-2022 ECHOCARDIO M/2D COMPLETE Patient: ISRAEL DEVINE Exam Date: 01/03/2022 : 1950 Gender:M Ordering : MALGORZATA Scooter DANIELLE Admission #: [id number] Family : DR DEB KLEIN . Order #: [id number] CLICK HERE TO VIEW EXAM ECHOCARDIOGRAM REPORT [...] Sr M.D. on 01/03/2022 at 13:41 Normal [facility] PSA, FREE AND TOTAL RATIOon 12-21-2021 % Free PSA 25.3 % Normal [facility] Comment on above: Result Comment: The table [...] men. Performed By: #### O BSCRN #### [facility] [address] [place] [address] Dr. Matt Suero Prostate specific Ag [Mass/Vol] 10.4 ng/mL Critically high 0.0-4.0 [facility] Comment on above: Result Comment: Keiko TURNER methodology. . According to the [employer], Serum PSA should decrease and [...] disease. Performed By: #### O BSCRN #### [facility] [address] [place] [address] Dr. Matt Suero PSA, Free 2.63 ng/mL Normal N/A [facility] Comment on above: Result Comment: Keiko TURNER methodology. Performed By: #### O BSCRN #### [facility] [address] [place] [address] Dr. Matt Suero INSULINon 12-20-2021 Insulin 13.6 uIU/mL Normal 2.6-24.9 [facility] Comment on above: Performed By: #### I NSULIN #### [facility] [address] [place] [address] Dr. Matt Suero TESTOSTERONE, TOTALon 2021 Testosterone [Mass/Vol] 250 ng/dL Critically low 264-916 [facility] Comment on above: Result Comment: Adul t male reference interval is based on a population of healthy nonobese males (BMI <30) between 19 and 39 years old. wenceslao Villalobos. JCEM 2017,102;5290-9263. PMID: [id number]. Performed By: #### O BSCRN #### [facility] [address] [place] [address] Dr. Matt Suero BNPon 12-19-2021 Natriuretic peptide B (Bld) [Mass/Vol] 795.0 pg/mL Normal <=900.0 [facility] Comment on above: Performed By: #### B FEED MILL TENDER, URIC, CMP, LIPID #### [facility] [address] [place] [address] Dr. Matt Suero CBC AUTO DIFFon 12-19-2021 BASO # 0.1 103/ul Normal 0.0-0.1 [facility] Comment on above: Performed By: #### C BC #### [facility] [address] [place] [address] Dr. Matt Suero Basophils/100 WBC (Bld) 0.6 % Normal 0.2-2.0 [facility] Comment on above: Performed By: #### C BC #### [facility] [address] [place] [address] Dr. Matt Suero EO # 0.3 103/ul Normal 0.0-0.7 [facility] Comment on above: Performed By: #### C BC #### [facility] [address] [place] [address] Dr. Matt Suero Eosinophils/100 WBC (Bld) 2.6 % Normal 0.9-7.0 [facility] Comment on above: Performed By: #### C BC #### [facility] [address] [place] [address] Dr. Matt Suero Erythrocyte distribution width (RBC) [Ratio] 14.4 % Normal 11.0-15.0 [facility] Comment on above: Performed By: #### C BC #### [facility] [address] [place] [address] Dr. Matt Suero Hematocrit (Bld) [Volume fraction] 36.5 % Critically low 42.0-54.0 [facility] Comment on above: Performed By: #### C BC #### [facility] [address] [address] [address] Matt Suero Hemoglobin (Bld) [Mass/Vol] 11.6 g/dL Critically low 14.0-18.0 [facility] Comment on above: Performed By: #### C BC #### [facility] [address] [address] [address] Matt Suero IG # 0.03 10e3/ul Normal 0.00-0.03 [facility] Comment on above: Performed By: #### C BC #### [facility] [address] [address] [address] Matt Suero IG % 0.3 % Normal 0.0-0.5 [facility] Comment on above: Performed By: #### C BC #### [facility] [address] [place] [address] Dr. Matt Suero LYMPH # 0.9 103/ul Critically low 1.2-3.8 [facility] Comment on above: Performed By: #### C BC #### [facility] [address] [place] [address] Dr. Matt Suero Lymphocytes/100 WBC (Bld) 8.8 % Critically low 20.5-60.0 [facility] Comment on above: Performed By: #### C BC #### [facility] [address] [place] [address] Dr. Matt Suero MANUAL DIFF REQ NO Normal [facility] Comment on above: Performed By: #### C BC #### [facility] [address] [place] [address] Dr. Matt Suero MCH (RBC) [Entitic mass] 28.8 pg Normal 25.9-34.0 [facility] Comment on above: Performed By: #### C BC #### [facility] [address] [place] [address] Dr. Matt Suero MCHC (RBC) [Mass/Vol] 31.8 g/dL Normal 29.9-35.2 [facility] Comment on above: Performed By: #### C BC #### [facility] [id number] Matt Suero MCV (RBC) [Entitic vol] 90.6 fL Normal 80.0-94.0 [facility] Comment on above: Performed By: #### C BC #### [facility] [address] [address] [address] Matt Suero MONO # 1.0 103/ul Critically high 0.3-0.8 [facility] Comment on above: Performed By: #### C BC #### [facility] [address] [address] [address] Matt Suero Monocytes/100 WBC (Bld) 9.2 % Normal 1.7-12.0 [facility] Comment on above: Performed By: #### C BC #### [facility] [address] [address] [address] Matt Suero NEUT # 8.3 103/ul Critically high 1.4-6.5 [facility] Comment on above: Performed By: #### C BC #### [facility] [address] [address] [address] Matt Suero Neutrophils/100 WBC (Bld) 78.5 % Critically high 43.0-75.0 [facility] Comment on above: Performed By: #### C BC #### [facility] [address] [address] [address] Matt Suero Platelet mean volume (Bld) [Entitic vol] 8.8 fL Critically low 9.5-13.5 [facility] Comment on above: Performed By: #### C BC #### [facility] [address] [address] [address] Matt Suero PLT 277 103/ul Normal 150-450 [facility] Comment on above: Performed By: #### C BC #### [facility] [id number] Matt Suero RBC 4.03 106/ul Critically low 4.70-6.10 [facility] Comment on above: Performed By: #### C BC #### [facility] [address] [address] [address] Matt Suero WBC 10.6 103/ul Normal 4.0-11.0 [facility] Comment on above: Performed By: #### C BC #### [facility] [address] [place] [address] Dr. Matt Suero GLYCOHEMOGLOBIN A1Con 2021 ADA RECOMMENDATION SEE BELOW Normal [facility] Comment on above: Result Comment: ADA RECOMMENDED LIMIT 4.0 - 6.0 ADA THERAPEUTIC TARGET < 7.0 ACTION SUGGESTED > 7.0 Performed By: #### O BSCRN #### [facility] [address] [place] [address] Dr. Matt Suero Glucose [Mass/Vol] 126 mg/dL Normal [facility] Comment on above: Performed By: #### O BSCRN #### [facility] [address] [place] [address] Dr. Matt Suero HbA1c (Bld) [Mass fraction] 6.0 % Normal 4.5-6.2 [facility] Comment on above: Performed By: #### O BSCRN #### [facility] [address] [place] [address] Dr. Matt Suero LIPID PROFILEon 12-19-2021 CHOL-HDL RATIO NORM SEE BELOW Normal [facility] Comment on above: Result Comment: 3.3 - 4.4 LOW RISK 4.4 - 7.1 AVERAGE RISK 7.1 - 11.0 MODERATE RISK >11.0 HIGH RISK Performed By: #### B FEED MILL TENDER, URIC, CMP, LIPID #### [facility] [address] [place] [address] Dr. Matt Suero Cholesterol [Mass/Vol] 153 mg/dL Normal <=200 [facility] Comment on above: Performed By: #### B FEED MILL TENDER, URIC, CMP, LIPID #### [facility] [address] [place] [address] Dr. Matt Suero Cholesterol in HDL [Mass/Vol] 69 mg/dL Critically high 40-60 [facility] Comment on above: Performed By: #### B FEED MILL TENDER, URIC, CMP, LIPID #### [facility] [address] [address] [address] Matt Suero Cholesterol in LDL [Mass/Vol] 69.0 mg/dL Normal [facility] Comment on above: Performed By: #### B FEED MILL TENDER, URIC, CMP, LIPID #### [facility] [address] [place] [address] Dr. Matt Suero Cholesterol.total/ Cholesterol in HDL [Mass ratio] 2.2 {ratio} Normal [facility] Comment on above: Performed By: #### B FEED MILL TENDER, URIC, CMP, LIPID #### [facility] [address] [place] [address] Dr. Matt Suero HDL NORMAL > or = 60 mg/dl - LO W CARDIOVASCULAR RISK <40 mg/dl - HIGH CARDIOVASCULAR RISK Normal [facility] Comment on above: Performed By: #### B FEED MILL TENDER, URIC, CMP, LIPID #### [facility] [address] [place] [address] Dr. Matt Suero LDL CALC NORMAL SEE BELOW Normal [facility] Comment on above: Result Comment: <100 mg/dl OPTIMAL 100 - 129 mg/dl NEAR OR ABOVE OPTIMAL 130 - 159 mg/dl BORDERLINE HIGH 160 - 189 mg/dl HIGH >190 mg/dl VERY HIGH Performed By: #### B FEED MILL TENDER, URIC, CMP, LIPID #### [facility] [address] [place] [address] Dr. Matt Suero Triglyceride [Mass/Vol] 72 mg/dL Normal <=150 [facility] Comment on above: Performed By: #### B FEED MILL TENDER, URIC, CMP, LIPID #### [facility] [address] [place] [address] Dr. Matt Suero VLDL CALC 14.4 mg/dL Normal [facility] Comment on above: Performed By: #### B FEED MILL TENDER, URIC, CMP, LIPID #### [facility] [address] [place] [address] Dr. Matt Suero OCC BLD IMMUNO SCREENon 11-27 OCCULT BLOOD Negative Normal NEGATIVE [facility] Comment on above: Performed By: #### O BSCRN #### [facility] [address] [place] [address] Dr. Matt Suero PROF 14(COMP METB)on 022 Albumin [Mass/Vol] 3.3 g/dL Critically low 3.4-5.0 [facility] Comment on above: Performed By: #### B FEED MILL TENDER, URIC, CMP, LIPID #### [facility] [address] [address] [address] Matt Suero Albumin/Globulin [Mass ratio] 0.8 {ratio} Normal [facility] Comment on above: Performed By: #### B FEED MILL TENDER, URIC, CMP, LIPID #### [facility] [address] [address] [address] Matt Suero ALP [Catalytic activity/Vol] 76 U/L Normal 46-116 [facility] Comment on above: Performed By: #### B FEED MILL TENDER, URIC, CMP, LIPID #### [facility] [address] [place] [address] Dr. Matt Suero ALT [Catalytic activity/Vol] 24 U/L Normal 16-63 [facility] Comment on above: Performed By: #### B FEED MILL TENDER, URIC, CMP, LIPID #### [facility] [address] [address] [address] Matt Suero Anion gap [Moles/Vol] 13.8 mmol/L Normal [facility] Comment on above: Performed By: #### B FEED MILL TENDER, URIC, CMP, LIPID #### [facility] [address] [address] [address] Matt Suero AST [Catalytic activity/Vol] 19 U/L Normal 15-37 [facility] Comment on above: Performed By: #### B FEED MILL TENDER, URIC, CMP, LIPID #### [facility] [address] [address] [address] Matt Suero Bilirubin [Mass/Vol] 0.5 mg/dL Normal 0.2-1.0 [facility] Comment on above: Performed By: #### B FEED MILL TENDER, URIC, CMP, LIPID #### [facility] [address] [address] [address] Matt Suero Calcium [Mass/Vol] 9.0 mg/dL Normal 8.5-10.1 [facility] Comment on above: Performed By: #### B FEED MILL TENDER, URIC, CMP, LIPID #### [facility] [address] [address] [address] Matt Suero Chloride [Moles/Vol] 102 mmol/L Normal 98-107 [facility] Comment on above: Performed By: #### B FEED MILL TENDER, URIC, CMP, LIPID #### [facility] [address] [address] [address] Matt Suero CO2 [Moles/Vol] 28.3 mmol/L Normal 21.0-32.0 [facility] Comment on above: Performed By: #### B FEED MILL TENDER, URIC, CMP, LIPID #### [facility] [address] [place] [address] Dr. Matt Suero Creatinine [Mass/Vol] 1.01 mg/dL Normal 0.70-1.30 [facility] Comment on above: Performed By: #### B FEED MILL TENDER, URIC, CMP, LIPID #### [facility] [address] [place] [address] Dr. Matt Suero EGFR-AF [place]OV[place] >60 Normal >=60 [facility] Comment on above: Performed By: #### B FEED MILL TENDER, URIC, CMP, LIPID #### [facility] [address] [place] [address] Dr. Matt Suero EGFR-NON AF [place] >60 Normal >=60 [facility] Comment on above: Performed By: #### B FEED MILL TENDER, URIC, CMP, LIPID #### [facility] [address] [place] [address] Dr. Matt Suero Globulin (S) [Mass/Vol] 4.2 g/dL Normal [facility] Comment on above: Performed By: #### B FEED MILL TENDER, URIC, CMP, LIPID #### [facility] [address] [place] [address] Dr. Matt Suero Glucose [Mass/Vol] 115 mg/dL Critically high 74-106 [facility] Comment on above: Performed By: #### B FEED MILL TENDER, URIC, CMP, LIPID #### [facility] [address] [place] [address] Dr. Matt Suero Potassium [Moles/Vol] 4.6 mmol/L Normal 3.5-5.1 [facility] Comment on above: Performed By: #### B FEED MILL TENDER, URIC, CMP, LIPID #### [facility] [address] [place] [address] Dr. Matt Suero Protein [Mass/Vol] 7.5 g/dL Normal 6.4-8.2 [facility] Comment on above: Performed By: #### B FEED MILL TENDER, URIC, CMP, LIPID #### [facility] [address] [address] [address] Matt Suero Sodium [Moles/Vol] 140 mmol/L Normal 136-145 [facility] Comment on above: Performed By: #### B FEED MILL TENDER, URIC, CMP, LIPID #### [facility] [address] [place] [address] Dr. Matt Suero Urea nitrogen [Mass/Vol] 21.0 mg/dL Critically high 7.0-18.0 [facility] Comment on above: Performed By: #### B FEED MILL TENDER, URIC, CMP, LIPID #### [facility] [address] [place] [address] Dr. Matt Suero Urea nitrogen/Creatinin e [Mass ratio] 20.7 mg/mg Normal [facility] Comment on above: Performed By: #### B FEED MILL TENDER, URIC, CMP, LIPID #### [facility] [address] [place] [address] Dr. Matt Suero URIC ACID SERUMon 12-19-2021 Urate [Mass/Vol] 5.2 mg/dL Normal 3.5-7.2 [facility] Comment on above: Performed By: #### B FEED MILL TENDER, URIC, CMP, LIPID #### [facility] [address] [place] [address] Dr. Matt Suero ECHOCARDIO M/2D COMPLETEon 0 09-08-2021 ECHOCARDIO M/2D COMPLETE Patient: ISRAEL DEVINE Exam Date: 09/08/2021 : 1950 Gender:M Ordering : DR PIPPA BENITEZ M.D. Admission #: [id number] Family : DR DEB KLEIN . Order #: [id number] CLICK HERE TO VIEW EXAM ECHOCARDIOGRAM REPORT [...] Area(A4C): 26.40 cm2 Left Atrium Systolic Volume(A2C): 317042 mm3 Left Atrium Systolic Volume(A4C): 60776 mm3 Mitral Valve MV E to A [...] Benitez M.D. on 09/08/2021 at 15:59 Normal [facility] BASIC METABOLIC PANELon 12-2 Calcium [Mass/Vol] 8.9 mg/dL Normal 8.6-10.3 [facility] Comment on above: Order Comment: Pneum othorax Performed By: #### 0 0071, 76441, 95879 ####[facility] [facility] [place] [address], [facility] Chloride [Moles/Vol] 93 mmol/L Low 98-107 [facility] Comment on above: Order Comment: Pneum othorax Performed By: #### 0 0071, 09113, 93114 ####[facility] [facility] [place] [address], [facility] CO2 [Moles/Vol] 30 mmol/L Normal 21-31 [facility] Comment on above: Order Comment: Pneum othorax Performed By: #### 0 0071, 91529, 46174 ####[facility] [facility] [place] [address], [facility] Creatinine [Mass/Vol] 1.00 mg/dL Normal 0.70-1.30 [facility] Comment on above: Order Comment: Pneum othorax Performed By: #### 0 0071, 43354, 36960 ####[facility] [place] [address], [place] GFR/1.73 sq M.predicted among blacks MDRD (S/P/Bld) [Vol rate/Area] mL/min/{1.73_m2} Normal >60 [facility] Comment on above: Order Comment: Pneum othorax Result Comment: Calc ulation may not be valid for patients over 70 years Performed By: #### 0 0071, 94983, 80137 ####[facility] [place] [address], [place] GFR/1.73 sq M.predicted among non-blacks MDRD (S/P/Bld) [Vol rate/Area] mL/min/{1.73_m2} Normal >60 [facility] Comment on above: Order Comment: Pneum othorax Result Comment: Calc ulation may not be valid for patients over 70 years Performed By: #### 0 0071, 21913, 55876 ####[facility] [place] [address], [place] Glucose [Mass/Vol] 112 mg/dL High 70-100 [facility] Comment on above: Order Comment: Pneum othorax Performed By: #### 0 0071, 03625, 19206 ####[facility] [place] [address], [place] Potassium [Moles/Vol] 3.9 mmol/L Normal 3.5-5.1 [facility] Comment on above: Order Comment: Pneum othorax Performed By: #### 0 0071, 42593, 08234 ####[facility] [place] [address], [place] Sodium [Moles/Vol] 134 mmol/L Low 136-145 [facility] Comment on above: Order Comment: Pneum othorax Performed By: #### 0 0071, 52186, 80301 ####[facility] [place] [address], [facility] Urea nitrogen [Mass/Vol] 20 mg/dL Normal 7-25 [facility] Comment on above: Order Comment: Pneum othorax Performed By: #### 0 0071, 99090, 32275 ####[facility] [place] [address], [facility] CBC COMPLETE BLOOD COUNTon 09-17-2020 Erythrocyte distribution width (RBC) [Ratio] 12.7 % Normal 11.5-15.0 [facility] Comment on above: Order Comment: No: D o not add to previous draw Performed By: #### 5 0608 #### [facility] [address] [place] [address], [facility] Hematocrit (Bld) [Volume fraction] 31.6 % Low 39.0-50.0 [facility] Comment on above: Order Comment: No: D o not add to previous draw Performed By: #### 5 0608 #### [facility] [address] [place] [address], [facility] Hemoglobin (Bld) [Mass/Vol] 10.3 g/dL Low 13.0-17.0 [facility] Comment on above: Order Comment: No: D o not add to previous draw Performed By: #### 5 0608 #### [facility] [address] [place] [address], [facility] MCH (RBC) [Entitic mass] 30.5 pg Normal 27.0-33.0 [facility] Comment on above: Order Comment: No: D o not add to previous draw Performed By: #### 5 0608 #### [facility] [address] [place] [address], [facility] MCHC (RBC) [Mass/Vol] 32.6 g/dL Normal 32.0-35.0 [facility] Comment on above: Order Comment: No: D o not add to previous draw Performed By: #### 5 0608 #### [facility] [address] [place] [address], [facility] MCV (RBC) [Entitic vol] 93.5 fL Normal 82.0-98.0 [facility] Comment on above: Order Comment: No: D o not add to previous draw Performed By: #### 5 0608 #### [facility] [address] [facility] [place] [address], [facility] Nucleated RBC/100 WBC (Bld) [Ratio] 0 % Normal 0-0 [facility] Comment on above: Order Comment: No: D o not add to previous draw Performed By: #### 5 0608 #### [facility] [address] [facility] [place] [address], [facility] PLAT CNT 200 10*3/uL Normal 150-400 [facility] Comment on above: Order Comment: No: D o not add to previous draw Performed By: #### 5 0608 #### [facility] [address] [facility] [place] [address], [facility] RBC (Bld) [#/Vol] 3.38 10*6/uL Low 4.20-5.70 [facility] Comment on above: Order Comment: No: D o not add to previous draw Performed By: #### 5 0608 #### [facility] [address] [facility] [place] [address], [facility] WBC (Bld) [#/Vol] 9.06 10*3/uL Normal 4.00-10.60 [facility] Comment on above: Order Comment: No: D o not add to previous draw Performed By: #### 5 0608 #### [facility] [address] [facility] [place] [address], [facility] MAGNESIUM BLOODon 07-17-2021 Magnesium [Mass/Vol] 1.8 mg/dL Low 1.9-2.7 [facility] Comment on above: Order Comment: Pneum othorax Performed By: #### 0 0071, 30682, 14318 ####[facility] [facility] [place] [address], [facility] PHOSPHORUS BLOODon Phosphate [Mass/Vol] 4.3 mg/dL Normal 2.5-5.0 [facility] Comment on above: Order Comment: Pneum othorax Performed By: #### 0 0071, 72545, 44961 ####[facility] [facility] [place] [address], [facility] POC GLUCOSE LABon 07-17-2021 Glucose [Mass/Vol] 151 mg/dL High 70-100 [facility] Comment on above: Performed By: #### 8 [id number] #### [facility] [address] [facility] [place] [address], [facility] Glucose [Mass/Vol] 111 mg/dL High 70-100 [facility] Comment on above: Performed By: #### 8 5499 #### [facility] [address] [place], [place] [id number] [place] [address] PORTABLE CHEST 1 VIEWon 06-29 PORTABLE CHEST 1 VIEW [facility] Department of Radiology [address] [place] [phone] Patient Name: ISRAEL DEVINE : 1950 Sex: M Age: Race: White Pt. Location: [place] [address] Patient Status: I Ordered Date: 07/17/2021 5:00:00 [...] change Electronically signed: Kumar Ross. Transcribed by: [email or web address], User Resident: Electronically Signed by: KUMAR ROSS @ 07/17/2021 07:45 AM Normal [facility] Comment on above: Order Comment: The A ptima SARS-CoV-2 assay is a nucleic acid amplification test intended for the qualitative detection of RNA from SARS-CoV-2 isolated and purified from nasopharyngeal (FEED MILL TENDER),oropharyngeal (OP), nasal swab, sputum, and bronchoalveolar lavage (BAL) specimens from patients with signs and symptoms of infection who are suspected of COVID-19. Results are for the identification of SARS-CoV-2 RNA. The SARS-CoV-2 RNA is generally detectable during the acute phase of infection. The Aptima SARS-CoV-2 Assay on the Ahometo and Ahometo Fusion system is intended for use by laboratory personnel specifically instructed and trained in the operation of the Otis and Ahometo Fusion system. The Aptima SARS-CoV-2 assay is [...] Calcium [Mass/Vol] 8.6 mg/dL Normal 8.6-10.3 [facility] Comment on above: Order Comment: Pneum othorax Performed By: #### 4 1000, 51623, 77840 ####[facility] [place] [address], [facility] Chloride [Moles/Vol] 97 mmol/L Low 98-107 [facility] Comment on above: Order Comment: Pneum othorax Performed By: #### 4 1000, 28963, 18145 ####[facility] [place] [address], [facility] CO2 [Moles/Vol] 30 mmol/L Normal 21-31 [facility] Comment on above: Order Comment: Pneum othorax Performed By: #### 4 1000, 50157, 48987 ####[facility] [facility] [place] [address], [facility] Creatinine [Mass/Vol] 0.92 mg/dL Normal 0.70-1.30 [facility] Comment on above: Order Comment: Pneum othorax Performed By: #### 4 1000, 20551, 14347 ####[facility] [facility] [place] [address], [facility] GFR/1.73 sq M.predicted among blacks MDRD (S/P/Bld) [Vol rate/Area] mL/min/{1.73_m2} Normal >60 [facility] Comment on above: Order Comment: Pneum othorax Result Comment: Calc ulation may not be valid for patients over 70 years Performed By: #### 4 1000, 48627, 87834 ####[facility] [place] [address], [facility] GFR/1.73 sq M.predicted among non-blacks MDRD (S/P/Bld) [Vol rate/Area] mL/min/{1.73_m2} Normal >60 [facility] Comment on above: Order Comment: Pneum othorax Result Comment: Calc ulation may not be valid for patients over 70 years Performed By: #### 4 1000, 09075, 13925 ####[facility] [place] [address], [facility] Glucose [Mass/Vol] 107 mg/dL High 70-100 [facility] Comment on above: Order Comment: Pneum othorax Performed By: #### 4 1000, 80688, 41969 ####[facility] [id number], [facility] Potassium [Moles/Vol] 4.1 mmol/L Normal 3.5-5.1 [facility] Comment on above: Order Comment: Pneum othorax Performed By: #### 4 1000, 42234, 43120 ####[facility] [id number], [facility] Sodium [Moles/Vol] 134 mmol/L Low 136-145 [facility] Comment on above: Order Comment: Pneum othorax Performed By: #### 4 1000, 14979, 32516 ####[facility] [facility] [place] [address], [facility] Urea nitrogen [Mass/Vol] 22 mg/dL Normal 7-25 [facility] Comment on above: Order Comment: Pneum othorax Performed By: #### 4 1000, 24503, 36516 ####[facility] [facility] [place] [address], [facility] CBC COMPLETE BLOOD COUNTon 09-16-2020 Erythrocyte distribution width (RBC) [Ratio] 12.5 % Normal 11.5-15.0 [facility] Comment on above: Order Comment: No: D o not add to previous draw Performed By: #### 5 0608 #### [facility] [address] [place] [address], [facility] Hematocrit (Bld) [Volume fraction] 27.1 % Low 39.0-50.0 [facility] Comment on above: Order Comment: No: D o not add to previous draw Performed By: #### 5 0608 #### [facility] [address] [place] [address], [facility] Hemoglobin (Bld) [Mass/Vol] 8.8 g/dL Low 13.0-17.0 [facility] Comment on above: Order Comment: No: D o not add to previous draw Performed By: #### 5 0608 #### [facility] [address] [place] [address], [facility] MCH (RBC) [Entitic mass] 30.1 pg Normal 27.0-33.0 [facility] Comment on above: Order Comment: No: D o not add to previous draw Performed By: #### 5 0608 #### [facility] [address] [place] [address], [facility] MCHC (RBC) [Mass/Vol] 32.5 g/dL Normal 32.0-35.0 [facility] Comment on above: Order Comment: No: D o not add to previous draw Performed By: #### 5 0608 #### [facility] [address] [facility] [place] [address], [facility] MCV (RBC) [Entitic vol] 92.8 fL Normal 82.0-98.0 [facility] Comment on above: Order Comment: No: D o not add to previous draw Performed By: #### 5 0608 #### [facility] [address] [facility] [place] [address], [facility] Nucleated RBC/100 WBC (Bld) [Ratio] 0 % Normal 0-0 [facility] Comment on above: Order Comment: No: D o not add to previous draw Performed By: #### 5 0608 #### [facility] [address] [facility] [place] [address], [facility] PLAT CNT 147 10*3/uL Low 150-400 [facility] Comment on above: Order Comment: No: D o not add to previous draw Performed By: #### 5 0608 #### [facility] [address] [place] [address], [facility] RBC (Bld) [#/Vol] 2.92 10*6/uL Low 4.20-5.70 [facility] Comment on above: Order Comment: No: D o not add to previous draw Performed By: #### 5 0608 #### [facility] [address] [place] [address], [facility] WBC (Bld) [#/Vol] 6.78 10*3/uL Normal 4.00-10.60 [facility] Comment on above: Order Comment: No: D o not add to previous draw Performed By: #### 5 0608 #### [facility] [address] [place], [place] [id number] [place] [address] MAGNESIUM BLOODon 07-16-2021 Magnesium [Mass/Vol] 2.0 mg/dL Normal 1.9-2.7 [facility] Comment on above: Order Comment: Pneum othorax Performed By: #### 4 1000, 69578, 00196 ####[facility] PHOSPHORUS BLOODon Phosphate [Mass/Vol] 3.5 mg/dL Normal 2.5-5.0 [facility] Comment on above: Order Comment: Pneum othorax Performed By: #### 4 1000, 88201, 25384 ####[facility] POC GLUCOSE LABon 07-16-2021 Glucose [Mass/Vol] 118 mg/dL High 70-100 [facility] Comment on above: Performed By: #### 8 5499 #### [facility] [address] [place], [place] [id number] [place] [address] PORTABLE CHEST 1 VIEWon 12- PORTABLE CHEST 1 VIEW [facility] Department of Radiology [address] [place] [phone] Patient Name: ISRAEL DEVINE : 1950 Sex: M Age: Race: White Pt. Location: [place] [address] Patient Status: I Ordered Date: 07/16/2021 1:55:00 [...] pneumothorax. Electronically signed: Cece Kim. Transcribed by: [email or web address], User Resident: Electronically Signed by: CECE KIM @ 07/16/2021 02:28 PM Normal [facility] Comment on above: Order Comment: The A ptima SARS-CoV-2 assay is a nucleic acid amplification test intended for the qualitative detection of RNA from SARS-CoV-2 isolated and purified from nasopharyngeal (FEED MILL TENDER),oropharyngeal (OP), nasal swab, sputum, and bronchoalveolar lavage (BAL) specimens from patients with signs and symptoms of infection who are suspected of COVID-19. Results are for the identification of SARS-CoV-2 RNA. The SARS-CoV-2 RNA is generally detectable during the acute phase of infection. The Aptima SARS-CoV-2 Assay on the Otis and Otis Fusion system is intended for use by laboratory personnel specifically instructed and trained in the operation of the Otis and Otis Fusion system. The Aptima SARS-CoV-2 assay is [...] and epidemiological information. PORTABLE CHEST 1 VIEW [facility] Department of Radiology [address] [place] [phone] Patient Name: ISRAEL DEVINE : 1950 Sex: M Age: Race: White Pt. Location: [place] [address] Patient Status: I Ordered Date: 07/16/2021 5:00:00 [...] effusion. Electronically signed: Cece Kim. Transcribed by: [email or web address], User Resident: Electronically Signed by: CECE KIM @ 07/16/2021 07:13 AM Normal [facility] Comment on above: Order Comment: Pneum othorax BASIC METABOLIC PANELon - Calcium [Mass/Vol] 7.6 mg/dL Low 8.6-10.3 [facility] Comment on above: Order Comment: No: D o not add to previous draw Performed By: #### 3 0965 #### [facility] [address] [place] [address], [facility] Chloride [Moles/Vol] 98 mmol/L Normal 98-107 [facility] Comment on above: Order Comment: No: D o not add to previous draw Performed By: #### 3 0965 #### [facility] [address] [place] [address], [place] CO2 [Moles/Vol] 28 mmol/L Normal 21-31 [facility] Comment on above: Order Comment: No: D o not add to previous draw Performed By: #### 3 0965 #### [facility] [address] [place] [address], [facility] Creatinine [Mass/Vol] 0.78 mg/dL Normal 0.70-1.30 [facility] Comment on above: Order Comment: No: D o not add to previous draw Performed By: #### 3 0965 #### [facility] [address] [place] [address], [place] GFR/1.73 sq M.predicted among blacks MDRD (S/P/Bld) [Vol rate/Area] mL/min/{1.73_m2} Normal >60 [facility] Comment on above: Order Comment: No: D o not add to previous draw Result Comment: Calc ulation may not be valid for patients over 70 years Performed By: #### 3 0965 #### [facility] [address] [place] [address], [place] GFR/1.73 sq M.predicted among non-blacks MDRD (S/P/Bld) [Vol rate/Area] mL/min/{1.73_m2} Normal >60 [facility] Comment on above: Order Comment: No: D o not add to previous draw Result Comment: Calc ulation may not be valid for patients over 70 years Performed By: #### 3 0965 #### [facility] [address] [place] [address], [place] Glucose [Mass/Vol] 123 mg/dL High 70-100 [facility] Comment on above: Order Comment: No: D o not add to previous draw Performed By: #### 3 0965 #### [facility] [address] [place] [address], [place] Potassium [Moles/Vol] 4.4 mmol/L Normal 3.5-5.1 [facility] Comment on above: Order Comment: No: D o not add to previous draw Performed By: #### 3 0965 #### [facility] [address] [place] [address], [place] Sodium [Moles/Vol] 132 mmol/L Low 136-145 [facility] Comment on above: Order Comment: No: D o not add to previous draw Performed By: #### 3 0965 #### [facility] [address] [place] [address], [place] Urea nitrogen [Mass/Vol] 23 mg/dL Normal 7-25 [facility] Comment on above: Order Comment: No: D o not add to previous draw Performed By: #### 3 0965 #### [facility] [address] [place] [address], [place] CBC COMPLETE BLOOD COUNTon 1 2-18-2021 Erythrocyte distribution width (RBC) [Ratio] 12.6 % Normal 11.5-15.0 [facility] Comment on above: Order Comment: No: D o not add to previous draw Performed By: #### 8 5499 #### [facility] [address] [place] [address], [place] Hematocrit (Bld) [Volume fraction] 25.3 % Low 39.0-50.0 [facility] Comment on above: Order Comment: No: D o not add to previous draw Performed By: #### 8 5499 #### [facility] [address] [place] [address], [facility] Hemoglobin (Bld) [Mass/Vol] 8.2 g/dL Low 13.0-17.0 [facility] Comment on above: Order Comment: No: D o not add to previous draw Performed By: #### 8 5499 #### [facility] [address] [place] [address], [place] IMM PLATELET FRAC 3.4 % Normal 0.8-6.3 [facility] Comment on above: Order Comment: No: D o not add to previous draw Performed By: #### 8 5499 #### [facility] [address] [place] [address], [place] MCH (RBC) [Entitic mass] 30.0 pg Normal 27.0-33.0 [facility] Comment on above: Order Comment: No: D o not add to previous draw Performed By: #### 8 5499 #### [facility] [address] [place] [address], [place] MCHC (RBC) [Mass/Vol] 32.4 g/dL Normal 32.0-35.0 [facility] Comment on above: Order Comment: No: D o not add to previous draw Performed By: #### 8 5499 #### [facility] [address] [place] [address], [place] MCV (RBC) [Entitic vol] 92.7 fL Normal 82.0-98.0 [facility] Comment on above: Order Comment: No: D o not add to previous draw Performed By: #### 8 5499 #### [facility] [address] [place] [address], [facility] Nucleated RBC/100 WBC (Bld) [Ratio] 0 % Normal 0-0 [facility] Comment on above: Order Comment: No: D o not add to previous draw Performed By: #### 8 5499 #### [facility] [address] [place] [address], [facility] PLAT CNT 125 10*3/uL Low 150-400 [facility] Comment on above: Order Comment: No: D o not add to previous draw Performed By: #### 8 5499 #### [facility] [address] [place] [id number], [facility] RBC (Bld) [#/Vol] 2.73 10*6/uL Low 4.20-5.70 [facility] Comment on above: Order Comment: No: D o not add to previous draw Performed By: #### 8 5499 #### [facility] [address] [place] [id number], [facility] WBC (Bld) [#/Vol] 9.34 10*3/uL Normal 4.00-10.60 [facility] Comment on above: Order Comment: No: D o not add to previous draw Performed By: #### 8 5499 #### [facility] [address] [place] [id number], [facility] MAGNESIUM BLOODon 07-15-2021 Magnesium [Mass/Vol] 2.0 mg/dL Normal 1.9-2.7 [facility] Comment on above: Order Comment: No: D o not add to previous draw Performed By: #### 3 0965 #### [facility] [address] [place] [id number], [facility] PHOSPHORUS BLOODon Phosphate [Mass/Vol] 3.4 mg/dL Normal 2.5-5.0 [facility] Comment on above: Performed By: #### 3 0965 #### [facility] [address] [facility] [place] [address], [facility] POC GLUCOSE LABon 07-15-2021 Glucose [Mass/Vol] 127 mg/dL High 70-100 [facility] Comment on above: Performed By: #### 3 1595 #### [facility] [address] [facility] [place] [address], [facility] Glucose [Mass/Vol] 146 mg/dL High 70-100 [facility] Comment on above: Performed By: #### 5 0608 #### [facility] [address] [facility] [place] [address], [facility] PORTABLE CHEST 1 VIEWon 06-28 PORTABLE CHEST 1 VIEW [facility] Department of Radiology [address] [place], [place] [id number] Patient Name: ISRAEL DEVINE : 1950 Sex: M Age: Race: White Pt. Location: [id number] Patient Status: I Ordered Date: 07/15/2021 5:00:00 [...] improvement Electronically signed: Kumar Ross. Transcribed by: [email or web address], User Resident: Electronically Signed by: KUMAR ROSS @ 07/16/2021 04:09 PM Normal [facility] Comment on above: Order Comment: The A ptima SARS-CoV-2 assay is a nucleic acid amplification test intended for the qualitative detection of RNA from SARS-CoV-2 isolated and purified from nasopharyngeal (FEED MILL TENDER),oropharyngeal (OP), nasal swab, sputum, and bronchoalveolar lavage (BAL) specimens from patients with signs and symptoms of infection who are suspected of COVID-19. Results are for the identification of SARS-CoV-2 RNA. The SARS-CoV-2 RNA is generally detectable during the acute phase of infection. The Aptima SARS-CoV-2 Assay on the Otis [employer] Ot[employer] Fusion system is intended for use by laboratory personnel specifically instructed and trained in the operation of the Otis [employer] Fusion system. The Aptima SARS-CoV-2 assay is [...] 12- Calcium [Mass/Vol] 8.0 mg/dL Low 8.6-10.3 [facility] Comment on above: Order Comment: No: D o not add to previous draw Performed By: #### 3 0965 #### [facility] [address] [place] [address], [place] Chloride [Moles/Vol] 101 mmol/L Normal 98-107 [facility] Comment on above: Order Comment: No: D o not add to previous draw Performed By: #### 3 0965 #### [facility] [address] [place] [address], [place] CO2 [Moles/Vol] 24 mmol/L Normal 21-31 [facility] Comment on above: Order Comment: No: D o not add to previous draw Performed By: #### 3 0965 #### [facility] [address] [place] [address], [place] Creatinine [Mass/Vol] 0.92 mg/dL Normal 0.70-1.30 [facility] Comment on above: Order Comment: No: D o not add to previous draw Performed By: #### 3 0965 #### [facility] [address] [place] [address], [place] GFR/1.73 sq M.predicted among blacks MDRD (S/P/Bld) [Vol rate/Area] mL/min/{1.73_m2} Normal >60 [facility] Comment on above: Order Comment: No: D o not add to previous draw Result Comment: Calc ulation may not be valid for patients over 70 years Performed By: #### 3 0965 #### [facility] [address] [place] [address], [place] GFR/1.73 sq M.predicted among non-blacks MDRD (S/P/Bld) [Vol rate/Area] mL/min/{1.73_m2} Normal >60 [facility] Comment on above: Order Comment: No: D o not add to previous draw Result Comment: Calc ulation may not be valid for patients over 70 years Performed By: #### 3 0965 #### [facility] [address] [place] [address], [place] Glucose [Mass/Vol] 120 mg/dL High 70-100 [facility] Comment on above: Order Comment: No: D o not add to previous draw Performed By: #### 3 0965 #### [facility] [address] [place] [address], [facility] Potassium [Moles/Vol] 4.2 mmol/L Normal 3.5-5.1 [facility] Comment on above: Order Comment: No: D o not add to previous draw Performed By: #### 3 0965 #### [facility] [address] [place] [address], [facility] Sodium [Moles/Vol] 134 mmol/L Low 136-145 [facility] Comment on above: Order Comment: No: D o not add to previous draw Performed By: #### 3 0965 #### [facility] [address] [place] [address], [facility] Urea nitrogen [Mass/Vol] 23 mg/dL Normal 7-25 [facility] Comment on above: Order Comment: No: D o not add to previous draw Performed By: #### 3 0965 #### [facility] [address] [place] [address], [facility] CBC COMPLETE BLOOD COUNTon 09-14-2020 Erythrocyte distribution width (RBC) [Ratio] 12.7 % Normal 11.5-15.0 [facility] Comment on above: Order Comment: No: D o not add to previous draw Performed By: #### 8 [id number] #### [facility] [address] [place] [address], [place] Hematocrit (Bld) [Volume fraction] 30.5 % Low 39.0-50.0 [facility] Comment on above: Order Comment: No: D o not add to previous draw Performed By: #### 8 [id number] #### [facility] [address] [place] [address], [place] Hemoglobin (Bld) [Mass/Vol] 9.8 g/dL Low 13.0-17.0 [facility] Comment on above: Order Comment: No: D o not add to previous draw Performed By: #### 8 [id number] #### [facility] [address] [facility] [place] [address], [facility] MCH (RBC) [Entitic mass] 30.6 pg Normal 27.0-33.0 [facility] Comment on above: Order Comment: No: D o not add to previous draw Performed By: #### 8 [id number] #### [facility] [address] [facility] [place] [address], [facility] MCHC (RBC) [Mass/Vol] 32.1 g/dL Normal 32.0-35.0 [facility] Comment on above: Order Comment: No: D o not add to previous draw Performed By: #### 8 [id number] #### [facility] [address] [facility] [address], [facility] MCV (RBC) [Entitic vol] 95.3 fL Normal 82.0-98.0 [facility] Comment on above: Order Comment: No: D o not add to previous draw Performed By: #### 8 [id number] #### [facility] [address] [facility]. [address] Nucleated RBC/100 WBC (Bld) [Ratio] 0 % Normal 0-0 [facility] Comment on above: Order Comment: No: D o not add to previous draw Performed By: #### 8 [id number] #### [facility] [address] [facility] [place] [address], [facility] PLAT CNT 110 10*3/uL Low 150-400 [facility] Comment on above: Order Comment: No: D o not add to previous draw Performed By: #### 8 [id number] #### [facility] [address] [facility] [place] [address], [facility] RBC (Bld) [#/Vol] 3.20 10*6/uL Low 4.20-5.70 [facility] Comment on above: Order Comment: No: D o not add to previous draw Performed By: #### 8 [id number] #### [facility] [address] [place] [address], [facility] WBC (Bld) [#/Vol] 11.71 10*3/uL High 4.00-10.60 [facility] Comment on above: Order Comment: No: D o not add to previous draw Performed By: #### 8 [id number] #### [facility] [address] [place] [address], [facility] MAGNESIUM BLOODon 07-14-2021 Magnesium [Mass/Vol] 2.1 mg/dL Normal 1.9-2.7 [facility] Comment on above: Order Comment: No: D o not add to previous draw Performed By: #### 3 0738 #### [facility] [address] [place] [address], [facility] PHOSPHORUS BLOODon Phosphate [Mass/Vol] 1.6 mg/dL Low 2.5-5.0 [facility] Comment on above: Order Comment: No: D o not add to previous draw Performed By: #### 3 0738 #### [facility] [address] [place] [address], [facility] POC GLUCOSE LABon 07-14-2021 Glucose [Mass/Vol] 156 mg/dL High 70-100 [facility] Comment on above: Performed By: #### 3 1595 #### [facility] [address] [place] [address], [place] Glucose [Mass/Vol] 158 mg/dL High 70-100 [facility] Comment on above: Performed By: #### 3 1595 #### [facility] [address] [place] [address], [place] Glucose [Mass/Vol] 149 mg/dL High 70-100 [facility] Comment on above: Performed By: #### 5 0608 #### [facility] [address], [facility] Glucose [Mass/Vol] 156 mg/dL High 70-100 [facility] Comment on above: Performed By: #### 5 0608 #### [address] [address], [facility] PORTABLE CHEST 1 VIEWon 06-28 PORTABLE CHEST 1 VIEW [facility] Department of Radiology [address] [place] [phone] Patient Name: ISRAEL DEVINE : 1950 Sex: M Age: Race: White Pt. Location: [place] [address] Patient Status: I Ordered Date: 07/14/2021 5:00:00 [...] base. Electronically signed: Gretta Perkins. Transcribed by: [email or web address], User Resident: Electronically Signed by: GRETTA PERKINS @ 07/14/2021 07:18 AM Normal [facility] Comment on above: Order Comment: evalu ate for Pneumothorax POTASSIUM BLOODon 07-14-2021 Potassium [Moles/Vol] 3.8 mmol/L Normal 3.5-5.1 [facility] Comment on above: Order Comment: Pneum othorax Performed By: #### 4 1406 ####[facility] [place] [address], [facility] APTTon 07-13-2021 aPTT Coag (Bld) [Time] 34.0 s Normal 25.0-35.0 [facility] Comment on above: Order Comment: No: [...] PURPOSE. Performed By: #### 5 0608 #### [facility] [address] [place] [address], [facility] ARTERIAL BLOOD GAS WITH ICAo n 07-13-2021 BASE EXCESS -1 mmol/L Normal -2-3 [facility] Comment on above: Performed By: #### 8 [id number] #### [facility] [address] [place] [address], [place] [employer] NASAL CANNULA Normal [facility] Comment on above: Performed By: #### 8 [id number] #### [facility] [address] [place] [address], [place] HCO3 (Bld) [Moles/Vol] 24 mmol/L Normal 21-28 [facility] Comment on above: Performed By: #### 8 [id number] #### [facility] [address] [place] [address], [place] IONIZED CALCIUM 1.17 mmol/L Normal 1.13-1.32 [facility] Comment on above: Performed By: #### 8 [id number] #### [facility] [address] [place] [address], [place] LPM 2.0 LPM Normal [facility] Comment on above: Performed By: #### 8 [id number] #### [facility] [address] [place] [address], [place] Oxygen (Bld) [Partial pressure] 96 mm[Hg] Normal 83-108 [facility] Comment on above: Performed By: #### 8 [id number] #### [facility] [address] [place] [address], [place] Oxygen saturation in Blood 96.5 % Normal 94.0-97.0 [facility] Comment on above: Performed By: #### 8 [id number] #### [facility] [address] [place] [address], [place] PCO2 38 mmHg Normal 35-45 [facility] Comment on above: Performed By: #### 8 [id number] #### [facility] [address] [place] [address], [place] pH (Bld) 7.40 [pH] Normal 7.35-7.45 [facility] Comment on above: Performed By: #### 8 [id number] #### [facility] [address] [place] [address], [place] BASIC METABOLIC PANELon 12 Calcium [Mass/Vol] 8.1 mg/dL Low 8.6-10.3 [facility] Comment on above: Order Comment: No: D o not add to previous draw Performed By: #### 5 0608 #### [facility] [address] [place] [address], [place] Chloride [Moles/Vol] 108 mmol/L High 98-107 [facility] Comment on above: Order Comment: No: D o not add to previous draw Performed By: #### 5 0608 #### [facility] [address] [place] [address], [place] CO2 [Moles/Vol] 24 mmol/L Normal 21-31 [facility] Comment on above: Order Comment: No: D o not add to previous draw Performed By: #### 5 0608 #### [facility] [address] [place] [address], [place] Creatinine [Mass/Vol] 1.00 mg/dL Normal 0.70-1.30 [facility] Comment on above: Order Comment: No: D o not add to previous draw Performed By: #### 5 0608 #### [facility] [address] [place] [address], [facility] GFR/1.73 sq M.predicted among blacks MDRD (S/P/Bld) [Vol rate/Area] mL/min/{1.73_m2} Normal >60 [facility] Comment on above: Order Comment: No: D o not add to previous draw Result Comment: Calc ulation may not be valid for patients over 70 years Performed By: #### 5 0608 #### [facility] [address] [place] [address], [place] GFR/1.73 sq M.predicted among non-blacks MDRD (S/P/Bld) [Vol rate/Area] mL/min/{1.73_m2} Normal >60 [facility] Comment on above: Order Comment: No: D o not add to previous draw Result Comment: Calc ulation may not be valid for patients over 70 years Performed By: #### 5 0608 #### [facility] [address] [place] [address], [place] Glucose [Mass/Vol] 118 mg/dL High 70-100 [facility] Comment on above: Order Comment: No: D o not add to previous draw Performed By: #### 5 0608 #### [facility] [address] [place] [address], [facility] Potassium [Moles/Vol] 4.3 mmol/L Normal 3.5-5.1 [facility] Comment on above: Order Comment: No: D o not add to previous draw Performed By: #### 5 0608 #### [facility] [address] [place] [address], [place] Sodium [Moles/Vol] 139 mmol/L Normal 136-145 [facility] Comment on above: Order Comment: No: D o not add to previous draw Performed By: #### 5 0608 #### [facility] [address] [place] [address], [place] Urea nitrogen [Mass/Vol] 20 mg/dL Normal 7-25 [facility] Comment on above: Order Comment: No: D o not add to previous draw Performed By: #### 5 0608 #### [facility] [address] [place] [address], [facility] CBC COMPLETE BLOOD COUNTon 09-13-2020 Erythrocyte distribution width (RBC) [Ratio] 12.8 % Normal 11.5-15.0 [facility] Comment on above: Order Comment: No: D o not add to previous draw Performed By: #### 8 [id number] #### [facility] [address] [place] [address], [facility] Hematocrit (Bld) [Volume fraction] 30.3 % Low 39.0-50.0 [facility] Comment on above: Order Comment: No: D o not add to previous draw Performed By: #### 8 [id number] #### [facility] [address] [place] [address], [place] Hemoglobin (Bld) [Mass/Vol] 10.1 g/dL Low 13.0-17.0 [facility] Comment on above: Order Comment: No: D o not add to previous draw Performed By: #### 8 [id number] #### [facility] [address] [place] [address], [facility] MCH (RBC) [Entitic mass] 30.6 pg Normal 27.0-33.0 [facility] Comment on above: Order Comment: No: D o not add to previous draw Performed By: #### 8 [id number] #### [facility] [address] [place] [id number], [facility] MCHC (RBC) [Mass/Vol] 33.3 g/dL Normal 32.0-35.0 [facility] Comment on above: Order Comment: No: D o not add to previous draw Performed By: #### 8 [id number] #### [facility] [address] [place] [id number], [facility] MCV (RBC) [Entitic vol] 91.8 fL Normal 82.0-98.0 [facility] Comment on above: Order Comment: No: D o not add to previous draw Performed By: #### 8 [id number] #### [facility] [address] [place] [address], [facility] Nucleated RBC/100 WBC (Bld) [Ratio] 0 % Normal 0-0 [facility] Comment on above: Order Comment: No: D o not add to previous draw Performed By: #### 8 [id number] #### [facility] [address] [place] [id number], [facility] PLAT CNT 152 10*3/uL Normal 150-400 [facility] Comment on above: Order Comment: No: D o not add to previous draw Performed By: #### 8 [id number] #### [facility] [address] [place] [id number], [facility] RBC (Bld) [#/Vol] 3.30 10*6/uL Low 4.20-5.70 [facility] Comment on above: Order Comment: No: D o not add to previous draw Performed By: #### 8 [id number] #### [facility] [address] WBC (Bld) [#/Vol] 10.66 10*3/uL High 4.00-10.60 [facility] Comment on above: Order Comment: No: D o not add to previous draw Performed By: #### 8 [id number] #### [facility] [address] LACTATE BLOODon 07-13-2021 Lactate [Moles/Vol] 1.0 mmol/L Normal .5-2.2 [facility] Comment on above: Order Comment: Pneum othorax Performed By: #### 1 0054 ####[facility] [address] MAGNESIUM BLOODon 07-13-2021 Magnesium [Mass/Vol] 2.2 mg/dL Normal 1.9-2.7 [facility] Comment on above: Order Comment: No: D o not add to previous draw Performed By: #### 5 0608 #### [facility] [address] Operative Reporton Operative Report MR#: [id number] [facility] Pt. Name: Israel Devine Room #: KHUSHBU [id number] Discharge Date: Birthdate: 1950 OPERATIVE REPORT DATE [...] device. 4. Independent interpretation of transesophageal echocardiogram. 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 ANESTHESIA: General with endotracheal intubation. ANESTHESIOLOGIST: [...] Dotson MD Date Trans: 07/12/2021 11:51 P/tangela [id number] cc: Deb Klein M.D. [address] [phone] Normal [facility] PHOSPHORUS BLOODon Phosphate [Mass/Vol] 3.0 mg/dL Normal 2.5-5.0 [facility] Comment on above: Order Comment: No: D o not add to previous draw Performed By: #### 5 0608 #### [facility] [address] [place] [address], [facility] POC GLUCOSE LABon 07-13-2021 Glucose [Mass/Vol] 146 mg/dL High 70-100 [facility] Comment on above: Performed By: #### 5 0608 #### [facility] [address] [place] [address], [place] Glucose [Mass/Vol] 132 mg/dL High 70-100 [facility] Comment on above: Performed By: #### 8 [id number] #### [facility] [address] [place] [address], [place] Glucose [Mass/Vol] 88 mg/dL Normal 70-100 [facility] Comment on above: Performed By: #### 5 0608 #### [facility] [address] [place] [address], [place] Glucose [Mass/Vol] 96 mg/dL Normal 70-100 [facility] Comment on above: Performed By: #### 5 0608 #### [facility] [address] [place] [address], [place] Glucose [Mass/Vol] 125 mg/dL High 70-100 [facility] Comment on above: Performed By: #### 8 5499 #### [facility] [address] [place] [address], [place] Glucose [Mass/Vol] 121 mg/dL High 70-100 [facility] Comment on above: Performed By: #### 3 1595 #### [facility] [address] [place] [address], [place] Glucose [Mass/Vol] 133 mg/dL High 70-100 [facility] Comment on above: Performed By: #### 5 0608 #### [facility] [address] [place] [address], [place] Glucose [Mass/Vol] 98 mg/dL Normal 70-100 [facility] Comment on above: Performed By: #### 8 [id number] #### [facility] [address] [place] [address], [place] Glucose [Mass/Vol] 90 mg/dL Normal 70-100 [facility] Comment on above: Performed By: #### 5 0608 #### [address] PORTABLE CHEST 1 VIEWon 06-28 PORTABLE CHEST 1 VIEW [facility] Department of Radiology [address] [place] [address] [place] [id number] Patient Name: ISRAEL DEVINE : 1950 Sex: M Age: Race: White Pt. Location: [place] [address] Patient Status: I Ordered Date: 07/13/2021 7:00:00 [...] base. Electronically signed: Gretta Perkins. Transcribed by: [email or web address], User Resident: Electronically Signed by: GRETTA PERKINSBS @ 07/13/2021 07:44 AM Normal [facility] Comment on above: Order Comment: The A ptima SARS-CoV-2 assay is a nucleic acid amplification test intended for the qualitative detection of RNA from SARS-CoV-2 isolated and purified from nasopharyngeal (FEED MILL TENDER),oropharyngeal (OP), nasal swab, sputum, and bronchoalveolar lavage (BAL) specimens from patients with signs and symptoms of infection who are suspected of COVID-19. Results are for the identification of SARS-CoV-2 RNA. The SARS-CoV-2 RNA is generally detectable during the acute phase of infection. The Aptima SARS-CoV-2 Assay on the Ahometo and Ahometo Fusion system is intended for use by laboratory personnel specifically instructed and trained in the operation of the Otis and Otis Fusion system. The Aptima SARS-CoV-2 assay is [...] [Relative time] 1.28 {INR} High 0.91-1.16 [facility] Comment on above: Order Comment: No: [...] 1995;[id number]. Performed By: #### 5 0608 #### [facility] [address] [place] [address], [facility] PT Coag (PPP) [Time] 16.0 s High 12.3-14.8 [facility] Comment on above: Order Comment: No: D o not add to previous draw Result Comment: ALL RESULTS MUST BE INTERPRETED WITH RESPECT TO BLOOD DRAWING ARTIFACT OR DILUTION ERROR OF ANTICOAGULANT AT THE TIME OF SAMPLING. Performed By: #### 5 0608 #### [facility] [address] [place] [address], [facility] ACTIVATED CLOTTING TIMEon ACTIVATED CLOTTING TIME 126 sec Normal 82-152 [facility] Comment on above: Performed By: #### 3 1792 #### [facility] [address] [place] [address], [facility] ACTIVATED CLOTTING TIME 120 sec Normal 82-152 [facility] Comment on above: Performed By: #### 3 1595 #### [facility] [address] [place] [address], [facility] ACTIVATED CLOTTING TIME 603 sec High 82-152 [facility] Comment on above: Performed By: #### 3 1595 #### [facility] [address] [place] [address], [place] ACTIVATED CLOTTING TIME 603 sec High 82-152 [facility] Comment on above: Performed By: #### 3 1595 #### [facility] [address] [place] [address], [place] ACTIVATED CLOTTING TIME 464 sec High 82-152 [facility] Comment on above: Performed By: #### 8 [id number] #### [facility] [address] [place] [address], [facility] ACTIVATED CLOTTING TIME 664 sec High 82-152 [facility] Comment on above: Performed By: #### 8 [id number] #### [facility] [address] [place] [address], [place] ACTIVATED CLOTTING TIME 609 sec High 82-152 [facility] Comment on above: Performed By: #### 8 [id number] #### [facility] [address] [place] [address], [facility] ACTIVATED CLOTTING TIME 144 sec Normal 82-152 [facility] Comment on above: Performed By: #### 8 [id number] #### [facility] [address] [place] [address], [facility] APTTon 07-12-2021 aPTT Coag (Bld) [Time] 47.7 s High 25.0-35.0 [facility] Comment on above: Order Comment: No: [...] PURPOSE. Performed By: #### 5 0608 #### [facility] [address] [place] [address], [facility] aPTT Coag (Bld) [Time] 35.9 s High 25.0-35.0 [facility] Comment on above: Result Comment: ALL [...] PURPOSE. Performed By: #### 5 0608 #### [facility] [address] [place] [address], [place] ARTERIAL BLOOD GAS WITH ICAo n 07-12-2021 BASE EXCESS -3 mmol/L Low -2-3 [facility] Comment on above: Performed By: #### 3 0738 #### [facility] [address] [place] [address], [place] HCO3 (Bld) [Moles/Vol] 23 mmol/L Normal 21-28 [facility] Comment on above: Performed By: #### 3 0738 #### [facility] [address] [place] [address], [place] MIN VOLUME 14.0 Normal [facility] Comment on above: Performed By: #### 3 0738 #### [facility] [address] [place] [address], [place] MODALITY SIMV Normal [facility] Comment on above: Performed By: #### 3 0738 #### [facility] [address] [place] [address], [place] Oxygen (Bld) [Partial pressure] 120 mm[Hg] Critically high 83-108 [facility] Comment on above: Performed By: #### 3 0738 #### [facility] [address] [place] [address], [place] Oxygen saturation in Blood 98.1 % High 94.0-97.0 [facility] Comment on above: Performed By: #### 3 0738 #### [facility] [address] [place] [address], [place] PCO2 44 mmHg Normal 35-45 [facility] Comment on above: Performed By: #### 3 0738 #### [facility] [address] [place] [address], [place] PF RATIO 240 mmHg Normal [facility] Comment on above: Performed By: #### 3 0738 #### [facility] [address] [place] [address], [facility] pH (Bld) 7.33 [pH] Low 7.35-7.45 [facility] Comment on above: Performed By: #### 3 0738 #### [facility] [address] [place] [address], [facility] Respiratory rate 18 /min Normal [facility] Comment on above: Performed By: #### 3 0738 #### [facility] [address] [place] [address], [facility] TIDAL VOLUME (VT) CC 600 Normal [facility] Comment on above: Performed By: #### 3 0738 #### [facility] [address] [place] [address], [facility] BASE EXCESS -6 mmol/L Low -2-3 [facility] Comment on above: Performed By: #### 3 0738 #### [facility] [address] [place] [address], [facility] DELIVERY SYSTEMS MV Normal [facility] Comment on above: Performed By: #### 3 0738 #### [facility] [address] [place] [address], [facility] FIO2 50 % Normal [facility] Comment on above: Performed By: #### 3 0738 #### [facility] [address] [place] [address], [facility] HCO3 (Bld) [Moles/Vol] 21 mmol/L Normal 21-28 [facility] Comment on above: Performed By: #### 3 0738 #### [facility] [address] [place] [address], [facility] IONIZED CALCIUM 1.14 mmol/L Normal 1.13-1.32 [facility] Comment on above: Performed By: #### 3 0738 #### [facility] [address] [place] [address], [facility] MIN VOLUME 6.4 Normal [facility] Comment on above: Performed By: #### 3 0738 #### [facility] [address] [place] [address], [place] MODALITY AC Normal [facility] Comment on above: Performed By: #### 3 0738 #### [facility] [address] [place] [address], [place] Oxygen (Bld) [Partial pressure] 90 mm[Hg] Normal 83-108 [facility] Comment on above: Performed By: #### 3 0738 #### [facility] [address] [place] [address], [place] Oxygen saturation in Blood 95.8 % Normal 94.0-97.0 [facility] Comment on above: Performed By: #### 3 0738 #### [facility] [address] [place] [address], [place] PCO2 46 mmHg High 35-45 [facility] Comment on above: Performed By: #### 3 0738 #### [facility] [address] [place] [address], [place] PEEP 8.0 CMH20 Normal [facility] Comment on above: Performed By: #### 3 0738 #### [facility] [address] [place] [address], [place] PF RATIO 180 mmHg Normal [facility] Comment on above: Performed By: #### 3 0738 #### [facility] [address] [place] [address], [place] pH (Bld) 7.27 [pH] Low 7.35-7.45 [facility] Comment on above: Performed By: #### 3 0738 #### [facility] [address] [place] [address], [place] PRESSURE SUPPORT 10 Normal [facility] Comment on above: Performed By: #### 3 0738 #### [facility] [address] [place] [address], [place] Respiratory rate 14 /min Normal [facility] Comment on above: Performed By: #### 3 0738 #### [facility] [address] [place] [address], [place] TIDAL VOLUME (VT) CC 450 Normal [facility] Comment on above: Performed By: #### 3 0738 #### [facility] [address] [place] [address], [place] IONIZED CALCIUM 1.06 mmol/L Low 1.12-1.32 [facility] Comment on above: Performed By: #### 3 0738 #### [facility] [address] [place] [address], [place] Performed By: #### 8 5499 #### [facility] [address] [place] [address], [place] BASIC METABOLIC PANELon 06-28 Calcium [Mass/Vol] 8.8 mg/dL Normal 8.6-10.3 [facility] Comment on above: Order Comment: No: D o not add to previous draw Performed By: #### 3 0965 #### [facility] [address] [place] [address], [place] Chloride [Moles/Vol] 110 mmol/L High 98-107 [facility] Comment on above: Order Comment: No: D o not add to previous draw Performed By: #### 3 0965 #### [facility] [address] [place] [address], [place] CO2 [Moles/Vol] 24 mmol/L Normal 21-31 [facility] Comment on above: Order Comment: No: D o not add to previous draw Performed By: #### 3 0965 #### [facility] [address] [place] [address], [place] Creatinine [Mass/Vol] 0.94 mg/dL Normal 0.70-1.30 [facility] Comment on above: Order Comment: No: D o not add to previous draw Performed By: #### 3 0965 #### [facility] [address] [place] [address], [facility] GFR/1.73 sq M.predicted among blacks MDRD (S/P/Bld) [Vol rate/Area] mL/min/{1.73_m2} Normal >60 [facility] Comment on above: Order Comment: No: D o not add to previous draw Result Comment: Calc ulation may not be valid for patients over 70 years Performed By: #### 3 0965 #### [facility] [address] [place] [address], [facility] GFR/1.73 sq M.predicted among non-blacks MDRD (S/P/Bld) [Vol rate/Area] mL/min/{1.73_m2} Normal >60 [facility] Comment on above: Order Comment: No: D o not add to previous draw Result Comment: Calc ulation may not be valid for patients over 70 years Performed By: #### 3 0965 #### [facility] [address] [place] [address], [place] Glucose [Mass/Vol] 132 mg/dL High 70-100 [facility] Comment on above: Order Comment: No: D o not add to previous draw Performed By: #### 3 0965 #### [facility] [address] [place] [address], [place] Potassium [Moles/Vol] 4.5 mmol/L Normal 3.5-5.1 [facility] Comment on above: Order Comment: No: D o not add to previous draw Performed By: #### 3 0965 #### [facility] [address] [place] [address], [place] Sodium [Moles/Vol] 141 mmol/L Normal 136-145 [facility] Comment on above: Order Comment: No: D o not add to previous draw Performed By: #### 3 0965 #### [facility] [address] [place] [address], [place] Urea nitrogen [Mass/Vol] 18 mg/dL Normal 7-25 [facility] Comment on above: Order Comment: No: D o not add to previous draw Performed By: #### 3 0965 #### [facility] [address] [place] [address], [place] Calcium [Mass/Vol] 7.7 mg/dL Low 8.6-10.3 [facility] Comment on above: Performed By: #### 3 0965 #### [facility] [address] [place] [address], [place] Chloride [Moles/Vol] 108 mmol/L High 98-107 [facility] Comment on above: Performed By: #### 3 0965 #### [facility] [address] [place] [address], [place] CO2 [Moles/Vol] 22 mmol/L Normal 21-31 [facility] Comment on above: Performed By: #### 3 0965 #### [facility] [address] [place] [address], [place] Creatinine [Mass/Vol] 0.90 mg/dL Normal 0.70-1.30 [facility] Comment on above: Performed By: #### 3 0965 #### [facility] [address] [place] [address], [place] Urea nitrogen [Mass/Vol] 20 mg/dL Normal 7-25 [facility] Comment on above: Performed By: #### 3 0965 #### [facility] [address] [place] [address], [place] Glucose [Mass/Vol] 159 mg/dL High 70-105 [facility] Comment on above: Performed By: #### 3 0965 #### [facility] [address] [place] [address], [facility] Performed By: #### 3 0738 #### [facility] [address] [place] [address], [facility] Potassium [Moles/Vol] 3.3 mmol/L Low 3.5-4.9 [facility] Comment on above: Performed By: #### 3 0965 #### [facility] [address] [place] [address], [facility] Performed By: #### 8 5499 #### [facility] [address] [place] [address], [facility] Sodium [Moles/Vol] 140 mmol/L Normal 138-146 [facility] Comment on above: Performed By: #### 3 0965 #### [facility] [address] [place] [address], [facility] Performed By: #### 3 1792 #### [facility] [address] [place] [address], [facility] Performed By: #### 8 [id number] #### [facility] [address] [place] [address], [facility] CBC COMPLETE BLOOD COUNTon 09-12-2020 Erythrocyte distribution width (RBC) [Ratio] 12.8 % Normal 11.5-15.0 [facility] Comment on above: Order Comment: No: D o not add to previous draw Performed By: #### 5 0608 #### [facility] [address] [place] [address], [facility] Hematocrit (Bld) [Volume fraction] 31.0 % Low 39.0-50.0 [facility] Comment on above: Order Comment: No: D o not add to previous draw Performed By: #### 5 0608 #### [facility] [address] [place] [address], [facility] Hemoglobin (Bld) [Mass/Vol] 10.4 g/dL Low 13.0-17.0 [facility] Comment on above: Order Comment: No: D o not add to previous draw Performed By: #### 5 0608 #### [facility] [address] [place] [address], [facility] MCH (RBC) [Entitic mass] 31.0 pg Normal 27.0-33.0 [facility] Comment on above: Order Comment: No: D o not add to previous draw Performed By: #### 5 0608 #### [facility] [address] MCHC (RBC) [Mass/Vol] 33.5 g/dL Normal 32.0-35.0 [facility] Comment on above: Order Comment: No: D o not add to previous draw Performed By: #### 5 0608 #### [facility] [address] [place] [address], [facility] MCV (RBC) [Entitic vol] 92.3 fL Normal 82.0-98.0 [facility] Comment on above: Order Comment: No: D o not add to previous draw Performed By: #### 5 0608 #### [facility] [address] [facility] [address], [facility] Nucleated RBC/100 WBC (Bld) [Ratio] 0 % Normal 0-0 [facility] Comment on above: Order Comment: No: D o not add to previous draw Performed By: #### 5 0608 #### [facility] [address] [facility]. [address] Performed By: #### 8 [id number] #### [facility] [address] [facility] [place] [place] [address], [facility] PLAT CNT 162 10*3/uL Normal 150-400 [facility] Comment on above: Order Comment: No: D o not add to previous draw Performed By: #### 5 0608 #### [facility] [address] [place] [address], [facility] RBC (Bld) [#/Vol] 3.36 10*6/uL Low 4.20-5.70 [facility] Comment on above: Order Comment: No: D o not add to previous draw Performed By: #### 5 0608 #### [facility] [address] [place] [address], [facility] WBC (Bld) [#/Vol] 11.92 10*3/uL High 4.00-10.60 [facility] Comment on above: Order Comment: No: D o not add to previous draw Performed By: #### 5 0608 #### [facility] [address] [place] [address], [facility] Erythrocyte distribution width (RBC) [Ratio] 12.2 % Normal 11.5-15.0 [facility] Comment on above: Performed By: #### 8 [id number] #### [facility] [address] [place] [address], [facility] Hematocrit (Bld) [Volume fraction] 28.9 % Low 39.0-50.0 [facility] Comment on above: Performed By: #### 8 [id number] #### [facility] [address] [place] [address], [facility] Hemoglobin (Bld) [Mass/Vol] 9.4 g/dL Low 13.0-17.0 [facility] Comment on above: Performed By: #### 8 [id number] #### [facility] [address] [facility] [place] [address], [facility] MCH (RBC) [Entitic mass] 30.6 pg Normal 27.0-33.0 [facility] Comment on above: Performed By: #### 8 [id number] #### [facility] [address] [place] [address], [facility] MCHC (RBC) [Mass/Vol] 32.5 g/dL Normal 32.0-35.0 [facility] Comment on above: Performed By: #### 8 [id number] #### [facility] [address] [place] [address], [facility] MCV (RBC) [Entitic vol] 94.1 fL Normal 82.0-98.0 [facility] Comment on above: Performed By: #### 8 [id number] #### [facility] [address] [place] [address], [facility] PLAT CNT 129 10*3/uL Low 150-400 [facility] Comment on above: Performed By: #### 8 [id number] #### [facility] [address] [facility] [place] [address], [facility] RBC (Bld) [#/Vol] 3.07 10*6/uL Low 4.20-5.70 [facility] Comment on above: Performed By: #### 8 [id number] #### [facility] [address] [facility] [place] [address], [facility] WBC (Bld) [#/Vol] 12.08 10*3/uL High 4.00-10.60 [facility] Comment on above: Performed By: #### 8 [id number] #### [facility] [address] [facility] [place] [id number], [facility] LACTATE BLOODon 07-12-2021 Lactate [Moles/Vol] 2.0 mmol/L Normal .5-2.2 [facility] Comment on above: Order Comment: Pneum othorax Performed By: #### 1 0054 ####[facility] [place] [address], [facility] Lactate [Moles/Vol] 1.9 mmol/L Normal .5-2.2 [facility] Comment on above: Performed By: #### 8 [id number] #### [facility] [address] [place] [id number], [facility] MAGNESIUM BLOODon 07-12-2021 Magnesium [Mass/Vol] 2.3 mg/dL Normal 1.9-2.7 [facility] Comment on above: Order Comment: No: D o not add to previous draw Performed By: #### 3 0965 #### [facility] [address] [place] [address], [facility] Magnesium [Mass/Vol] 2.8 mg/dL High 1.9-2.7 [facility] Comment on above: Performed By: #### 3 0965 #### [facility] [address] [place] [address], [facility] PERFUSION BLOOD PANELon 12 BASE EXCESS -4.0 mmol/L Low -2.0-3.0 [facility] Comment on above: Performed By: #### 3 0738 #### [facility] [address] [place] [address], [facility] Hematocrit (Bld) [Volume fraction] 26 % Low 38-51 [facility] Comment on above: Performed By: #### 3 0738 #### [facility] [address] [place] [address], [facility] Hemoglobin (Bld) [Mass/Vol] 8.8 g/dL Low 12.0-17.0 [facility] Comment on above: Performed By: #### 3 0738 #### [facility] [address] [place] [address], [facility] IONIZED CALCIUM 1.16 mmol/L Normal 1.12-1.32 [facility] Comment on above: Performed By: #### 3 0738 #### [facility] [address] [place] [address], [facility] Oxygen (Bld) [Partial pressure] 89.0 mm[Hg] Normal 80.0-105.0 [facility] Comment on above: Performed By: #### 3 0738 #### [facility] [address] [place] [address], [facility] PCO2 40.5 mmHg Normal 35.0-45.0 [facility] Comment on above: Performed By: #### 3 0738 #### [facility] [address] [place] [address], [facility] pH (Bld) 7.34 [pH] Low 7.35-7.45 [facility] Comment on above: Performed By: #### 3 0738 #### [facility] [address] [place] [address], [place] Potassium [Moles/Vol] 3.2 mmol/L Low 3.5-4.9 [facility] Comment on above: Performed By: #### 3 0738 #### [facility] [address] [place] [address], [place] Sodium [Moles/Vol] 142 mmol/L Normal 138-146 [facility] Comment on above: Performed By: #### 3 0738 #### [facility] [address] [place] [address], [facility] BASE EXCESS -4.0 mmol/L Low -2.0-3.0 [facility] Comment on above: Performed By: #### 8 [id number] #### [facility] [address] [place] [address], [place] Glucose [Mass/Vol] 157 mg/dL High 70-105 [facility] Comment on above: Performed By: #### 8 [id number] #### [facility] [address] [place] [address], [facility] Hematocrit (Bld) [Volume fraction] 26 % Low 38-51 [facility] Comment on above: Performed By: #### 8 [id number] #### [facility] [address] [place] [address], [facility] Hemoglobin (Bld) [Mass/Vol] 8.8 g/dL Low 12.0-17.0 [facility] Comment on above: Performed By: #### 8 [id number] #### [facility] [address] [place] [address], [facility] IONIZED CALCIUM 1.21 mmol/L Normal 1.12-1.32 [facility] Comment on above: Performed By: #### 8 [id number] #### [facility] [address] [place] [address], [facility] Oxygen (Bld) [Partial pressure] 62.0 mm[Hg] Low 80.0-105.0 [facility] Comment on above: Performed By: #### 8 [id number] #### [facility] [address] [place] [address], [facility] PCO2 40.8 mmHg Normal 35.0-45.0 [facility] Comment on above: Performed By: #### 8 [id number] #### [facility] [address] [place] [address], [facility] pH (Bld) 7.34 [pH] Low 7.35-7.45 [facility] Comment on above: Performed By: #### 8 [id number] #### [facility] [address] [place] [address], [place] Sodium [Moles/Vol] 142 mmol/L Normal 138-146 [facility] Comment on above: Performed By: #### 8 [id number] #### [facility] [address] [place] [address], [place] BASE EXCESS 2.0 mmol/L Normal -2.0-3.0 [facility] Comment on above: Performed By: #### 3 1791 #### [facility] [address] [place] [address], [place] Glucose [Mass/Vol] 152 mg/dL High 70-105 [facility] Comment on above: Performed By: #### 3 1791 #### [facility] [address] [place] [address], [place] Hematocrit (Bld) [Volume fraction] 28 % Low 38-51 [facility] Comment on above: Performed By: #### 3 1791 #### [facility] [address] [place] [address], [facility] Hemoglobin (Bld) [Mass/Vol] 9.5 g/dL Low 12.0-17.0 [facility] Comment on above: Performed By: #### 3 1791 #### [facility] [address] [place] [address], [facility] IONIZED CALCIUM 1.03 mmol/L Low 1.12-1.32 [facility] Comment on above: Performed By: #### 3 1791 #### [facility] [address] [place] [address], [facility] Oxygen (Bld) [Partial pressure] 509.0 mm[Hg] High 80.0-105.0 [facility] Comment on above: Performed By: #### 3 1791 #### [facility] [address] [place] [address], [facility] PCO2 41.3 mmHg Normal 35.0-45.0 [facility] Comment on above: Performed By: #### 3 1791 #### [facility] [address] [place] [address], [facility] pH (Bld) 7.42 [pH] Normal 7.35-7.45 [facility] Comment on above: Performed By: #### 3 1791 #### [facility] [address] [place] [address], [place] Potassium [Moles/Vol] 4.2 mmol/L Normal 3.5-4.9 [facility] Comment on above: Performed By: #### 3 1791 #### [facility] [address] [place] [address], [place] Sodium [Moles/Vol] 139 mmol/L Normal 138-146 [facility] Comment on above: Performed By: #### 3 1791 #### [facility] [address] [place] [address], [place] BASE EXCESS 3.0 mmol/L Normal -2.0-3.0 [facility] Comment on above: Performed By: #### 8 [id number] #### [facility] [address] [place] [address], [facility] Glucose [Mass/Vol] 165 mg/dL High 70-105 [facility] Comment on above: Performed By: #### 8 [id number] #### [facility] [address] [place] [address], [facility] Hematocrit (Bld) [Volume fraction] 29 % Low 38-51 [facility] Comment on above: Performed By: #### 8 [id number] #### [facility] [address] [place] [address], [facility] Hemoglobin (Bld) [Mass/Vol] 9.9 g/dL Low 12.0-17.0 [facility] Comment on above: Performed By: #### 8 [id number] #### [facility] [address] [place] [address], [facility] Oxygen (Bld) [Partial pressure] 452.0 mm[Hg] High 80.0-105.0 [facility] Comment on above: Performed By: #### 8 [id number] #### [facility] [address] [place] [address], [facility] PCO2 45.7 mmHg High 35.0-45.0 [facility] Comment on above: Performed By: #### 8 [id number] #### [facility] [address] [place] [address], [facility] pH (Bld) 7.39 [pH] Normal 7.35-7.45 [facility] Comment on above: Performed By: #### 8 [id number] #### [facility] [address] [place] [address], [facility] Potassium [Moles/Vol] 4.3 mmol/L Normal 3.5-4.9 [facility] Comment on above: Performed By: #### 8 [id number] #### [facility] [address] [place] [address], [facility] Sodium [Moles/Vol] 139 mmol/L Normal 138-146 [facility] Comment on above: Performed By: #### 8 [id number] #### [facility] [address] [place] [address], [facility] BASE EXCESS 2.0 mmol/L Normal -2.0-3.0 [facility] Comment on above: Performed By: #### 8 [id number] #### [facility] [address] [place] [address], [facility] Glucose [Mass/Vol] 225 mg/dL High 70-105 [facility] Comment on above: Performed By: #### [id number] #### [facility] [address] [place] [address], [facility] Hematocrit (Bld) [Volume fraction] 25 % Low 38-51 [facility] Comment on above: Performed By: #### [id number] #### [facility] [address] [place] [address], [facility] Hemoglobin (Bld) [Mass/Vol] 8.5 g/dL Low 12.0-17.0 [facility] Comment on above: Performed By: #### 8 [id number] #### [facility] [address] [place] [address], [facility] IONIZED CALCIUM 1.05 mmol/L Low 1.12-1.32 [facility] Comment on above: Performed By: #### 8 [id number] #### [facility] [address] [place] [address], [facility] Oxygen (Bld) [Partial pressure] 446.0 mm[Hg] High 80.0-105.0 [facility] Comment on above: Performed By: #### 8 [id number] #### [facility] [address] [place] [address], [facility] PCO2 49.0 mmHg High 35.0-45.0 [facility] Comment on above: Performed By: #### 8 [id number] #### [facility] [address] [place] [address], [facility] pH (Bld) 7.36 [pH] Normal 7.35-7.45 [facility] Comment on above: Performed By: #### 8 [id number] #### [facility] [address] [place] [address], [place] Potassium [Moles/Vol] 4.3 mmol/L Normal 3.5-4.9 [facility] Comment on above: Performed By: #### 8 [id number] #### [facility] [address] [place] [address], [place] Sodium [Moles/Vol] 138 mmol/L Normal 138-146 [facility] Comment on above: Performed By: #### 8 [id number] #### [facility] [address] [place] [address], [facility] BASE EXCESS 3.0 mmol/L Normal -2.0-3.0 [facility] Comment on above: Performed By: #### 8 [id number] #### [facility] [address] [place] [address], [place] Glucose [Mass/Vol] 97 mg/dL Normal 70-105 [facility] Comment on above: Performed By: #### 8 [id number] #### [facility] [address] [place] [address], [place] Hematocrit (Bld) [Volume fraction] 28 % Low 38-51 [facility] Comment on above: Performed By: #### 8 [id number] #### [facility] [address] [place] [address], [place] Hemoglobin (Bld) [Mass/Vol] 9.5 g/dL Low 12.0-17.0 [facility] Comment on above: Performed By: #### 8 [id number] #### [facility] [address] [place] [address], [facility] IONIZED CALCIUM 0.97 mmol/L Low 1.12-1.32 [facility] Comment on above: Performed By: #### 8 [id number] #### [facility] [address] [place] [address], [facility] Oxygen (Bld) [Partial pressure] 501.0 mm[Hg] High 80.0-105.0 [facility] Comment on above: Performed By: #### 8 [id number] #### [facility] [address] [facility] [place] [address], [facility] PCO2 38.5 mmHg Normal 35.0-45.0 [facility] Comment on above: Performed By: #### 8 [id number] #### [facility] [address] [place] [address], [facility] pH (Bld) 7.45 [pH] Normal 7.35-7.45 [facility] Comment on above: Performed By: #### 8 [id number] #### [facility] [address] [place] [address], [facility] Potassium [Moles/Vol] 3.8 mmol/L Normal 3.5-4.9 [facility] Comment on above: Performed By: #### 8 [id number] #### [facility] [address] [place] [address], [facility] Sodium [Moles/Vol] 139 mmol/L Normal 138-146 [facility] Comment on above: Performed By: #### 8 [id number] #### [facility] [address] [place] [address], [facility] BASE EXCESS 0.0 mmol/L Normal -2.0-3.0 [facility] Comment on above: Performed By: #### 8 [id number] #### [facility] [address] [place] [address], [facility] Glucose [Mass/Vol] 97 mg/dL Normal 70-105 [facility] Comment on above: Performed By: #### 8 [id number] #### [facility] [address] [place] [address], [facility] Hematocrit (Bld) [Volume fraction] 29 % Low 38-51 [facility] Comment on above: Performed By: #### 8 [id number] #### [facility] [address] [place] [address], [facility] Hemoglobin (Bld) [Mass/Vol] 9.9 g/dL Low 12.0-17.0 [facility] Comment on above: Performed By: #### 8 [id number] #### [facility] [address] [place] [address], [facility] IONIZED CALCIUM 1.03 mmol/L Low 1.12-1.32 [facility] Comment on above: Performed By: #### 8 [id number] #### [facility] [address] [place] [address], [facility] Oxygen (Bld) [Partial pressure] 46.0 mm[Hg] Normal [facility] Comment on above: Performed By: #### 8 [id number] #### [facility] [address] [place] [address], [facility] PCO2 40.6 mmHg Low 41.0-51.0 [facility] Comment on above: Performed By: #### 8 [id number] #### [facility] [address] [place] [address], [facility] pH (Bld) 7.39 [pH] Normal 7.31-7.41 [facility] Comment on above: Performed By: #### 8 [id number] #### [facility] [address] [place] [address], [facility] Potassium [Moles/Vol] 3.8 mmol/L Normal 3.5-4.9 [facility] Comment on above: Performed By: #### 8 [id number] #### [facility] [address] [place] [address], [facility] Sodium [Moles/Vol] 141 mmol/L Normal 138-146 [facility] Comment on above: Performed By: #### 8 [id number] #### [facility] [address] [place] [address], [facility] BASE EXCESS -1.0 mmol/L Normal -2.0-3.0 [facility] Comment on above: Performed By: #### 3 1791 #### [facility] [address] [place] [address], [facility] Glucose [Mass/Vol] 107 mg/dL High 70-105 [facility] Comment on above: Performed By: #### 3 1791 #### [facility] [address] [place] [address], [facility] Hematocrit (Bld) [Volume fraction] 33 % Low 38-51 [facility] Comment on above: Performed By: #### 3 1791 #### [facility] [address] [place] [address], [facility] Hemoglobin (Bld) [Mass/Vol] 11.2 g/dL Low 12.0-17.0 [facility] Comment on above: Performed By: #### 3 179 #### [facility] [address] [place] [address], [facility] IONIZED CALCIUM 1.16 mmol/L Normal 1.12-1.32 [facility] Comment on above: Performed By: #### 3 179 #### [facility] [address] [place] [address], [facility] Oxygen (Bld) [Partial pressure] 293.0 mm[Hg] High 80.0-105.0 [facility] Comment on above: Performed By: #### 3 179 #### [facility] [address] [place] [address], [facility] PCO2 41.5 mmHg Normal 35.0-45.0 [facility] Comment on above: Performed By: #### 3 1792 #### [facility] [address] [place] [address], [facility] pH (Bld) 7.38 [pH] Normal 7.35-7.45 [facility] Comment on above: Performed By: #### 3 1792 #### [facility] [address] [place] [address], [facility] Potassium [Moles/Vol] 3.8 mmol/L Normal 3.5-4.9 [facility] Comment on above: Performed By: #### 3 1792 #### [facility] [address] [place] [address], [facility] BASE EXCESS 0.0 mmol/L Normal -2.0-3.0 [facility] Comment on above: Performed By: #### 8 [id number] #### [facility] [address] [place] [address], [facility] Glucose [Mass/Vol] 104 mg/dL Normal 70-105 [facility] Comment on above: Performed By: #### 8 [id number] #### [facility] [address] [place] [address], [place] Hematocrit (Bld) [Volume fraction] 35 % Low 38-51 [facility] Comment on above: Performed By: #### 8 [id number] #### [facility] [address] [place] [address], [place] Hemoglobin (Bld) [Mass/Vol] 11.9 g/dL Low 12.0-17.0 [facility] Comment on above: Performed By: #### 8 [id number] #### [facility] [address] [place] [address], [place] IONIZED CALCIUM 1.20 mmol/L Normal 1.12-1.32 [facility] Comment on above: Performed By: #### 8 [id number] #### [facility] [address] [place] [address], [facility] Oxygen (Bld) [Partial pressure] 379.0 mm[Hg] High 80.0-105.0 [facility] Comment on above: Performed By: #### 8 [id number] #### [facility] [address] [place] [address], [place] PCO2 40.8 mmHg Normal 35.0-45.0 [facility] Comment on above: Performed By: #### 8 5499 #### [facility] [address] [place] [address], [place] pH (Bld) 7.40 [pH] Normal 7.35-7.45 [facility] Comment on above: Performed By: #### 8 [id number] #### [facility] [address] [place] [address], [facility] Potassium [Moles/Vol] 3.9 mmol/L Normal 3.5-4.9 [facility] Comment on above: Performed By: #### 8 [id number] #### [facility] [address] [place] [address], [facility] PHOSPHORUS BLOODon Phosphate [Mass/Vol] 2.7 mg/dL Normal 2.5-5.0 [facility] Comment on above: Order Comment: No: D o not add to previous draw Performed By: #### 3 0965 #### [facility] [address] [place] [address], [place] POC GLUCOSE LABon 07-12-2021 Glucose [Mass/Vol] 115 mg/dL High 70-100 [facility] Comment on above: Performed By: #### 3 1595 #### [facility] [address] [place] [address], [place] Glucose [Mass/Vol] 132 mg/dL High 70-100 [facility] Comment on above: Performed By: #### 3 1595 #### [facility] [address] [facility] [place] [address], [place] Glucose [Mass/Vol] 109 mg/dL High 70-100 [facility] Comment on above: Performed By: #### 5 0608 #### [facility] [address] [place] [address], [place] Glucose [Mass/Vol] 150 mg/dL High 70-100 [facility] Comment on above: Performed By: #### 8 [id number] #### [facility] [address] [place] [address], [place] Glucose [Mass/Vol] 162 mg/dL High 70-100 [facility] Comment on above: Performed By: #### 5 0608 #### [facility] [address] [place] [address], [place] Glucose [Mass/Vol] 97 mg/dL Normal 70-100 [facility] Comment on above: Performed By: #### 3 1595 #### [facility] [address] [facility] [place] [address], [facility] PORTABLE CHEST 1 VIEW 06-28 PORTABLE CHEST 1 VIEW [facility] Department of Radiology [address] [place] [id number] Patient Name: ISRAEL DEVINE : 1950 Sex: M Age: Race: White Pt. Location: [id number] Patient Status: I Ordered Date: 07/12/2021 1:00:00 [...] atelectasis Electronically signed: Amauri Ramirez. Transcribed by: [email or web address], User Resident: Electronically Signed by: AMAURI RAMIREZ @ 07/12/2021 01:53 PM Normal [facility] Comment on above: Order Comment: The A ptima SARS-CoV-2 assay is a nucleic acid amplification test intended for the qualitative detection of RNA from SARS-CoV-2 isolated and purified from nasopharyngeal (FEED MILL TENDER),oropharyngeal (OP), nasal swab, sputum, and bronchoalveolar lavage (BAL) specimens from patients with signs and symptoms of infection who are suspected of COVID-19. Results are for the identification of SARS-CoV-2 RNA. The SARS-CoV-2 RNA is generally detectable during the acute phase of infection. The Aptima SARS-CoV-2 Assay on the Ahometo and Ahomet[employer] Fusion system is intended for use by laboratory personnel specifically instructed and trained in the operation of the Otis and Otis Fusion system. The Aptima SARS-CoV-2 assay is [...] [Relative time] 1.27 {INR} High 0.91-1.16 [facility] Comment on above: Order Comment: No: [...] 1995;108:[id number]. Performed By: #### 5 0608 #### [address] PT Coag (PPP) [Time] 15.9 s High 12.3-14.8 [facility] Comment on above: Order Comment: No: D o not add to previous draw Result Comment: ALL RESULTS MUST BE INTERPRETED WITH RESPECT TO BLOOD DRAWING ARTIFACT OR DILUTION ERROR OF ANTICOAGULANT AT THE TIME OF SAMPLING. Performed By: #### 5 0608 #### [facility] [address] INR Coag (PPP) [Relative time] 1.63 {INR} High 0.91-1.16 [facility] Comment on above: Result Comment: ACCC [...] 1995;108:[id number]. Performed By: #### 5 0608 #### [address] PT Coag (PPP) [Time] 19.2 s High 12.3-14.8 [facility] Comment on above: Result Comment: ALL RESULTS MUST BE INTERPRETED WITH RESPECT TO BLOOD DRAWING ARTIFACT OR DILUTION ERROR OF ANTICOAGULANT AT THE TIME OF SAMPLING. Performed By: #### 5 0608 #### [facility] [address] CHEST AND LATERALon 07-10-20 21 CHEST AND LATERAL [facility] Department of Radiology [address] [place] [id number] Patient Name: ISRAEL DEVINE : 1950 [...] atelectasis. Electronically signed: Ludwig Shah. Transcribed by: [email or web address], User Resident: Electronically Signed by: LUDWIG SHAH @ 07/10/2021 05:29 PM Normal [facility] Comment on above: Order Comment: The A ptima SARS-CoV-2 assay is a nucleic acid amplification test intended for the qualitative detection of RNA from SARS-CoV-2 isolated and purified from nasopharyngeal (FEED MILL TENDER),oropharyngeal (OP), nasal swab, sputum, and bronchoalveolar lavage (BAL) specimens from patients with signs and symptoms of infection who are suspected of COVID-19. Results are for the identification of SARS-CoV-2 RNA. The SARS-CoV-2 RNA is generally detectable during the acute phase of infection. The Aptima SARS-CoV-2 Assay on the Otis [employer] Fusion system is intended for use by laboratory personnel specifically instructed and trained in the operation of the Otis [employer] Fusion system. The Aptima SARS-CoV-2 assay is [...] 06-27- 021 Pulmonary Function MR #: [id number] [facility] PT. Name: Israel Devine Date: 05/29/2021 [...] Gomez MD Date Trans: 06/27/2021 01:07 P/ [id number] cc: Deb Klein M.D. [address] [place] [address] Normal [facility] *MRSA/MSSA DNA NASALon 05-29 *MRSA/MSSA DNA NASAL Clinical Report: (D) Specimen: NASAL SWAB Collected: 05/29/2021 12:56 Status: Final Last Updated: 05/29/2021 17:37 MSSA DNA (Final) Negative MRSA DNA (Final) Negative Normal [facility] Comment on above: Performed By: #### 3 1595 #### [facility] [address] *SARS-CoV-2 COVID-19on 05-29 SARS-CoV-2 (COVID-19) RNA RAZIA+probe Ql (Unsp spec) Not detected Normal Not Detected [facility] Comment on above: Order Comment: The A ptima SARS-CoV-2 assay is a nucleic acid amplification test intended for the qualitative detection of RNA from SARS-CoV-2 isolated and purified from nasopharyngeal (FEED MILL TENDER),oropharyngeal (OP), nasal swab, sputum, and bronchoalveolar lavage (BAL) specimens from patients with signs and symptoms of infection who are suspected of COVID-19. Results are for the identification of SARS-CoV-2 RNA. The SARS-CoV-2 RNA is generally detectable during the acute phase of infection. The Aptima SARS-CoV-2 Assay on the [employer]omet[employer] and Otis Fusion system is intended for use by laboratory personnel specifically instructed and trained in the operation of the Otis and Ot[employer] Fusion system. The Aptima SARS-CoV-2 assay is [...] information. Performed By: #### 3 1792 #### [facility] [address] [place] [address], [facility] APTTon 05-29-2021 aPTT Coag (Bld) [Time] 32.6 s Normal 25.0-35.0 [facility] Comment on above: Result Comment: ALL [...] PURPOSE. Performed By: #### 8 [id number] #### [facility] [address] [place] [address], [facility] ARTERIAL BLOOD GAS W/COOXon 05-29-2021 BASE EXCESS -1 mmol/L Normal -2-3 [facility] Comment on above: Performed By: #### 3 0738 #### [facility] [address] [place] [address], [facility] COHB 1.3 % Normal 0.0-1.5 [facility] Comment on above: Performed By: #### 3 0738 #### [facility] [address] [place] [address], [facility] DELIVERY SYSTEMS ROOM AIR Normal [facility] Comment on above: Performed By: #### 3 0738 #### [facility] [address] [place] [address], [facility] FIO2 0 % Normal [facility] Comment on above: Performed By: #### 3 0738 #### [facility] [address] [place] [address], [facility] HCO3 (Bld) [Moles/Vol] 23 mmol/L Normal 21-28 [facility] Comment on above: Performed By: #### 3 0738 #### [facility] [address] [place] [address], [facility] METHB 0.7 % Normal 0.0-1.5 [facility] Comment on above: Performed By: #### 3 0738 #### [facility] [address] [place] [address], [facility] Oxygen (Bld) [Partial pressure] 87 mm[Hg] Normal 83-108 [facility] Comment on above: Performed By: #### 3 0738 #### [facility] [address] [facility] [place] [address], [facility] Oxygen saturation in Blood 96.3 % Normal 94.0-97.0 [facility] Comment on above: Performed By: #### 3 0738 #### [facility] [address] [facility] [address], [facility] PCO2 35 mmHg Normal 35-45 [facility] Comment on above: Performed By: #### 3 0738 #### [facility] [address] [place] [address], [facility] pH (Bld) 7.43 [pH] Normal 7.35-7.45 [facility] Comment on above: Performed By: #### 3 0738 #### [facility] [address] [facility] [place] [address], [facility] THB 13.6 g/dL Normal 12.0-16.3 [facility] Comment on above: Performed By: #### 3 0738 #### [facility] [address] [place] [address], [facility] CBC W/DIFFon 05-29-2021 ABS IMM GRANS 0.0 10*3/uL Normal 0.0-0.2 [facility] Comment on above: Performed By: #### 8 [id number] #### [facility] [address] [place] [address], [facility] ABS NEUTROPHILS 2.9 10*3/uL Normal 1.6-7.6 [facility] Comment on above: Performed By: #### 8 5499 #### [facility] [address] [place] [address], [facility] Basophils (Bld) [#/Vol] 0.1 10*3/uL Normal 0.0-0.2 [facility] Comment on above: Performed By: #### 8 [id number] #### [facility] [address] [facility] [place] [address], [facility] Basophils/100 WBC (Bld) 1.3 % High 0.0-1.0 [facility] Comment on above: Performed By: #### 8 [id number] #### [facility] [address] [facility] [place] [address], [facility] Eosinophils (Bld) [#/Vol] 0.3 10*3/uL Normal 0.0-0.5 [facility] Comment on above: Performed By: #### 8 [id number] #### [facility] [address] [place] [address], [facility] Eosinophils/100 WBC (Bld) 6.0 % Normal 0.0-6.0 [facility] Comment on above: Performed By: #### 8 [id number] #### [facility] [address] [facility] [place] [id number], [facility] Erythrocyte distribution width (RBC) [Ratio] 12.5 % Normal 11.5-15.0 [facility] Comment on above: Performed By: #### 8 [id number] #### [facility] [address] [place] [id number], [facility] Hematocrit (Bld) [Volume fraction] 42.6 % Normal 39.0-50.0 [facility] Comment on above: Performed By: #### 8 [id number] #### [facility] [address] [facility] [address], [facility] Hemoglobin (Bld) [Mass/Vol] 13.7 g/dL Normal 13.0-17.0 [facility] Comment on above: Performed By: #### 8 [id number] #### [facility] [address] [facility] [place] [address], [facility] IMMATURE GRANS 0.4 % Normal 0.0-1.0 [facility] Comment on above: Performed By: #### 8 [id number] #### [facility] [address] [place] [address], [facility] Lymphocytes (Bld) [#/Vol] 1.2 10*3/uL Normal 1.2-4.0 [facility] Comment on above: Performed By: #### 8 [id number] #### [facility] [address] Lymphocytes/100 WBC (Bld) 23.2 % Normal 20.0-45.0 [facility] Comment on above: Performed By: #### 8 [id number] #### [facility] [address] [place] [address], [facility] MCH (RBC) [Entitic mass] 30.2 pg Normal 27.0-33.0 [facility] Comment on above: Performed By: #### 8 [id number] #### [facility] [address] [facility] [place] [address], [facility] MCHC (RBC) [Mass/Vol] 32.2 g/dL Normal 32.0-35.0 [facility] Comment on above: Performed By: #### 8 [id number] #### [facility] [address] [facility] [place] [address], [facility] MCV (RBC) [Entitic vol] 94.0 fL Normal 82.0-98.0 [facility] Comment on above: Performed By: #### 8 [id number] #### [facility] [address] [facility] [place] [place] [address], [facility] Monocytes (Bld) [#/Vol] 0.8 10*3/uL Normal 0.1-1.0 The [facility] Comment on above: Performed By: #### 8 [id number] #### [facility] [address] [facility] [place] [address], [facility] MONOS 14.1 % High 5.0-12.0 The [facility] Comment on above: Performed By: #### 8 [id number] #### [facility] [address] [place] [address], [facility] Neutrophils/100 WBC (Bld) 55.0 % Normal 40.0-72.0 [facility] Comment on above: Performed By: #### 8 [id number] #### [facility] [address] [facility] [place] [address], [facility] Nucleated RBC/100 WBC (Bld) [Ratio] 0 % Normal 0-0 [facility] Comment on above: Performed By: #### 8 [id number] #### [facility] [address] [facility] [place] [address], [facility] PLAT CNT 211 10*3/uL Normal 150-400 [facility] Comment on above: Performed By: #### 8 [id number] #### [facility] [address] [facility] [place] [address], [facility] RBC (Bld) [#/Vol] 4.53 10*6/uL Normal 4.20-5.70 [facility] Comment on above: Performed By: #### 8 [id number] #### [facility] [address] [place] [address], [facility] WBC (Bld) [#/Vol] 5.31 10*3/uL Normal 4.00-10.60 The [facility] Comment on above: Performed By: #### 8 [id number] #### [address] [place], [place] [address] CHEST AND LATERALon 05-29-20 CHEST AND LATERAL [facility] Department of Radiology [address] [place] [id number] Patient Name: ISRAEL DEVINE : 1950 [...] identified. Electronically signed: Oneal Barth. Transcribed by: [email or web address], User Resident: Electronically Signed by: ONEAL BARTH @ 05/29/2021 03:39 PM Normal [facility] Comment on above: Order Comment: The A ptima SARS-CoV-2 assay is a nucleic acid amplification test intended for the qualitative detection of RNA from SARS-CoV-2 isolated and purified from nasopharyngeal (FEED MILL TENDER),oropharyngeal (OP), nasal swab, sputum, and bronchoalveolar lavage (BAL) specimens from patients with signs and symptoms of infection who are suspected of COVID-19. Results are for the identification of SARS-CoV-2 RNA. The SARS-CoV-2 RNA is generally detectable during the acute phase of infection. The Aptima SARS-CoV-2 Assay on the Ahometo and Ahometo Fusion system is intended for use by laboratory personnel specifically instructed and trained in the operation of the Otis and Otis Fusion system. The Aptima SARS-CoV-2 assay is [...] Albumin [Mass/Vol] 4.3 g/dL Normal 3.5-5.7 [facility] Comment on above: Performed By: #### 0 0121 ####[facility] [facility] [place] [address], [facility] ALKALINE PHOSPH 58 IU/L Normal 34-104 [facility] Comment on above: Performed By: #### 0 0121 ####[facility] [facility] [place] [address], [facility] ALT [Catalytic activity/Vol] 14 U/L Normal 7-52 [facility] Comment on above: Performed By: #### 0 0121 ####[facility] [place] [address], [facility] AST [Catalytic activity/Vol] 19 U/L Normal 13-39 [facility] Comment on above: Performed By: #### 0 0121 ####[facility] [place] [address], [place] Bilirubin [Mass/Vol] 0.7 mg/dL Normal 0.3-1.0 [facility] Comment on above: Performed By: #### 0 0121 ####[facility] [place] [address], [facility] Calcium [Mass/Vol] 9.2 mg/dL Normal 8.6-10.3 [facility] Comment on above: Performed By: #### 0 0121 ####[facility] [place] [address], [facility] Chloride [Moles/Vol] 107 mmol/L Normal 98-107 [facility] Comment on above: Performed By: #### 0 0121 ####[facility] [place] [address], [facility] CO2 [Moles/Vol] 27 mmol/L Normal 21-31 [facility] Comment on above: Performed By: #### 0 0121 ####[facility] [place] [address], [facility] Creatinine [Mass/Vol] 1.09 mg/dL Normal 0.70-1.30 [facility] Comment on above: Performed By: #### 0 0121 ####[facility] [place] [address], [facility] GFR/1.73 sq M.predicted among blacks MDRD (S/P/Bld) [Vol rate/Area] mL/min/{1.73_m2} Normal >60 [facility] Comment on above: Result Comment: Calc ulation may not be valid for patients over 70 years Performed By: #### 0 0121 ####[facility] [place] [address], [place] GFR/1.73 sq M.predicted among non-blacks MDRD (S/P/Bld) [Vol rate/Area] mL/min/{1.73_m2} Normal >60 [facility] Comment on above: Result Comment: Calc ulation may not be valid for patients over 70 years Performed By: #### 0 0121 ####[facility] [place] [address], [place] Glucose [Mass/Vol] 78 mg/dL Normal 70-100 [facility] Comment on above: Performed By: #### 0 0121 ####[facility] [place] [address], [place] Potassium [Moles/Vol] 4.4 mmol/L Normal 3.5-5.1 [facility] Comment on above: Performed By: #### 0 0121 ####[facility] [place] [address], [place] Protein [Mass/Vol] 6.3 g/dL Normal 6.0-8.3 [facility] Comment on above: Performed By: #### 0 0121 ####[facility] [place] [address], [place] Sodium [Moles/Vol] 140 mmol/L Normal 136-145 [facility] Comment on above: Performed By: #### 0 0121 ####[facility] [place] [address], [place] Urea nitrogen [Mass/Vol] 26 mg/dL High 7-25 [facility] Comment on above: Performed By: #### 0 0121 ####[facility] [place] [address], [place] HEMOGLOBIN A1Con 05-29-2021 Glucose [Moles/Vol] 117 mmol/L Normal [facility] Comment on above: Performed By: #### 3 0965 #### [facility] [address] [facility]. [address] HbA1c (Bld) [Mass fraction] 5.7 % Normal 4.0-6.0 [facility] Comment on above: Performed By: #### 3 0965 #### [facility] [address] [facility]. [address] PROTHROMBIN TIMEon 1 INR Coag (PPP) [Relative time] 1.03 {INR} Normal 0.91-1.16 [facility] Comment on above: Result Comment: ACCC [...] 1995;108:231S-246S. Performed By: #### 8 [id number] #### [facility] [address] [facility]. [address] PT Coag (PPP) [Time] 13.5 s Normal 12.3-14.8 [facility] Comment on above: Result Comment: ALL RESULTS MUST BE INTERPRETED WITH RESPECT TO BLOOD DRAWING ARTIFACT OR DILUTION ERROR OF ANTICOAGULANT AT THE TIME OF SAMPLING. Performed By: #### 8 [id number] #### [facility] [address] [place] [address], [place] TYPE AND CROSSMATCHon 2020 ABO INTERPRETATION A Normal [facility] Comment on above: Order Comment: 4 UNI TS Performed By: #### 8 [id number] #### [facility] [address] [place] [address], [place] RH INTERPRETATION Positive Normal [facility] Comment on above: Order Comment: 4 UNI TS Performed By: #### 8 [id number] #### [facility] [address] [place] [address], [place] URINALYSIS REFLEXon 05-29-20 21 Appearance (U) SL CLOUDY Abnormal CLEAR [facility] Comment on above: Performed By: #### 3 0965 #### [facility] [address] [place] [address], [place] Bilirubin Ql (U) Negative Normal NEGATIVE [facility] Comment on above: Performed By: #### 3 0965 #### [facility] [address] [place] [address], [place] Color (U) YELLOW Abnormal YELLOW [facility] Comment on above: Performed By: #### 3 0965 #### [facility] [address] [place] [address], [place] EPIS FEW Normal FEW,OCC,NON E SEEN [facility] Comment on above: Performed By: #### 3 0965 #### [facility] [address] [place] [address], [place] Glucose Ql (U) Negative Normal NEGATIVE [facility] Comment on above: Performed By: #### 3 0965 #### [facility] [address] [place] [address], [place] Hemoglobin Ql (U) Negative Abnormal NEGATIVE [facility] Comment on above: Performed By: #### 3 0965 #### [facility] [address] [place] [address], [place] KETONE Negative Normal NEGATIVE [facility] Comment on above: Performed By: #### 3 0965 #### [facility] [address] [place] [address], [facility] LEUK ALYSA Negative Normal NEGATIVE [facility] Comment on above: Performed By: #### 3 0965 #### [facility] [address] [place] [address], [facility] MUCUS THREADS FEW Abnormal NONE SEEN [facility] Comment on above: Performed By: #### 3 0965 #### [facility] [address] [facility]. [address] Nitrite Ql (U) Negative Normal NEGATIVE [facility] Comment on above: Performed By: #### 3 0965 #### [facility] [address] [facility] [address] pH (U) 5.0 [pH] Normal 5.0-8.0 [facility] Comment on above: Performed By: #### 3 0965 #### [facility] [address] [facility]. [address] Protein Ql (U) Negative Normal NEGATIVE [facility] Comment on above: Performed By: #### 3 0965 #### [facility] [address] [facility] [place] [address], [facility] RBC NONE SEEN Normal NONE SEEN [facility] Comment on above: Performed By: #### 3 0965 #### [facility] [address] [facility] [place] [address], [facility] SPEC GRAV 1.026 High 1.015-1.020 [facility] Comment on above: Performed By: #### 3 0965 #### [facility] [address] [place] [address], [facility] WBC UA 0-2 Abnormal NONE SEEN [facility] Comment on above: Performed By: #### 3 0965 #### [facility] [address] Cardiovascular Lab Reporton 05-18-2021 Cardiovascular Lab Report [facility] Patient Name: Israel Devine [facility] MR #: [id number] Physician: Pippa Pacheco of [facility] Medicine Service Date: 05/18/2021 Division of Birthdate: 1950 Cardiology Room #: Adult Cardiovascular Services [facility] [address] [place] [address] Cardiovascular Laboratory Report INDICATION: Symptomatic severe aortic valve regurgitation. PROCEDURES: 1. Right heart catheterization. 2. Access into right internal jugular vein under ultrasound guidance. 3. Bilateral selective coronary angiography from the left radial access. METHODS: Procedure was explained to the patient with risks and benefits. He signed informed consent. He was brought to cath lab technologist in a fasting state. The right neck area was prepped and draped in usual fashion. Micropuncture technique and ultrasound guidance was used for access in the right internal jugular vein. A 6-Gambian x 11 cm sheath was placed. A 6-Gambian Perales catheter was used for right catheterization with measurement of pressures and calculation of cardiac output using the estimated Mervin method. Perales catheter was removed. Access was obtained in the left radial artery using micropuncture technique. A 6-Gambian x 11 cm Hydrophilic sheath was advanced. Verapamil was given through the sheath and heparin was administered intravenously. Initial catheter advancement was made feasible using an angled Glidewire. Bilateral selective coronary angiography was then performed using 6-Gambian JL4 and JR4 diagnostic catheters. Catheters were [...] Benitez M.D. Date Trans: 05/18/2021 01:38 P/rebecao [id number] cc: Deb Klein M.D. [address] [phone] [facility] March 30, 2021 Deb Klein, [address] [place] [id number] Re: ISRAEL DEVINE Date of : 1950 Thank you for your referral of Israel Devine who was seen on consultation on March 29, 2021, for screening colonoscopy. I have enclosed my consultation note for your review. I will be happy to follow Israel. Sincerely, Mane Dorsey MD General Surgery Normal [facility] Ambulatory Clinical Summaryo n 03-29-2021 Ambulatory Clinical Summary {[id number]}CD:[id number] Normal [facility] General Surgery Office/Clini c Noteon 03-29-2021 General Surgery Office/Clinic Note HPI Staff New pt., referred by Dr. Klein for screening colonoscopy. Last c-scope & egd was [address] Banks @ [facility]. Mother had colon surgery ? colon ca [...] Colon cancer: Mother. Lung cancer: Sister. Normal [facility] Comment on above: Result Comment: Elec tronically [...] slower pace than normal. ? Eat soft, xonc-sf-dvaozj foods. ? Take kpad-snr-dlxmopw or prescription medicines only as told by [...] 02/26/2005 Document Revised: 05/07/2018 Document Reviewed: 09/25/2016 [employer] Patient Education ? 2020 [employer] Colonoscopy, Adult A colonoscopy is an [...] including vitamins, herbs, eye drops, creams, and gfss-yhe-izerpbr medicines. ? Any problems you or family [...] drink clear liquid (more content not included)... [facility] Reminderson 03-29-2021 Reminders - From: Linh Martinez To: [facility] - Clinical; Sent: 03/29/2021 14:40:03 EDT Show up: 03/29/2024 14:39:00 EDT Subject: colonoscopy recall Due Date/Time: 03/29/2024 14:39:00 EDT Reminder/Recall Dr. Dorsey recomm screening cscope in 2023 , last scope was [address] Banks [facility] Physician Referralon 021 Physician Referral [id number] [facility] Encounters Encounter Date Encounter Type Care Provider Facility Start: 03-04-2023 End: 03-04-2023 ambulatory MALGORZATA DANIELLE [facility] Start: 06-22-2022 End: 06-23-[address] [...] 07-17-2021 Evaluation and management of inpatient DEB KELIN Facility:[facility] Start: 05-18-2021 End: 05-19-2021 ambulatory DEB HOY Facility:[facility] Start: 04-27-2021 End: 04-28-2021 ambulatory DEB HOY Facility:[facility] Procedures Date Procedure Procedure Detail Performing Clinician Start: 01-30-2022 PSA screening MALGORZATA KELLY Comment on above: Performed By: #### O BSCRN #### [facility] [address] [place] [address] Dr. Matt Suero Start: 12-19-2021 PSA screening MALGORZATA KELLY Comment on above: Performed By: #### P SAD #### [facility] [address] [place] [address] [address] Matt Suero Start: 05-29-2021 Antibody screen DEB KLEIN Comment on above: Order Comment: 4 UNI TS Performed By: #### 8 5499 #### [address] Payers Date Payer Category Payer [employer] ( and others) [id number] 1960 Medicare [id number] 1960 Self-pay 1950 Unknown [id number] 1950 Unknown [id number] [id number] 1950 Unknown [id number] 2..[id number] 1950 Unknown [id number] 2..[id number] 1950 Unknown [id number] [id number] 1950 Unknown [id number] [id number] 1950 Unknown [id number] [id number] 1950 Unknown [id number] [id number] 1950 Unknown [id number] [id number] 1950 Unknown [id number] [id number] Unknown [id number] [id number] Progress note 03-04-2023 Note Date & Type Note Facility 03-04-2023 Note Currently stable wit hout any concerning symptoms Continue metoprolol and zocor Repeat echocardiogram. [facility] Progress note 03-04-2023 Note Date & Type Note Facility 03-04-2023 Note No concerning sympto ms and pt doing quite well without any activity limiting symptoms Repeat echocardiogram [facility] Progress note 03-04-2023 Note Date & [...] function and electrolytes- script for labs provided [facility] Progress note 03-04-2023 Note Date & Type Note Facility 03-04-2023 Note S/P cryomaze and atr iclip Remains on xarelto anticoagulation- denied any bleeding tendencies Continue metoprolol [facility] Progress note 03-04-2023 Note Date & Type Note Facility 03-04-2023 Note Continue zocor and s cript for annual labs provided including lipid level and LFT [facility] Progress note 03-04-2023 Note Date & Type Note Facility 03-04-2023 Note Coronary artery dise ase is stable Continue GDMT- no ASA with xarelto -(pt also taking celebrex- HTN well controlled) Continue zocor continue risk factor modifications- heart healthy diet, regular exercise as tolerated and continue all medications. [facility] Progress note 03-04-2023 Note Date & Type Note Facility 03-04-2023 Note S/p bioprosthetic va lve replacement 07/18 Continue metoprolol No concerning symptoms currently, continues with cardiac rehab- tolerating well Repeat echocardiogram [facility] Progress note 03-04-2023 Note Date & [...] 82. Prior cardiac testing: Stress test at [facility] on 09/25/18 shows EF at 56%, no [...] 02/11/18 aortic regurgitation (more content not included)... [facility] Progress note 03-04-2023 Note Date & [...] All other systems reviewed and are negative. [facility] Discharge summary note 08-03-2021 Note Date & Type Note Facility 08-03-2021 Note MR#: [id number] I [facility] Pt. Name: Israel Devine Admitted: 07/12/2021 [...] discharge. Patient was discharged to rehab of [facility]. DISCHARGE CONDITION: Patient's condition at discharge, stable. Good. DISCHARGE DISPOSITION: [facility] Rehab. HOME MEDICATIONS: Celebrex 200 mg daily, [...] his own. All discharge instructions were faxed [facility]. Electronically Signed by: Singh Dotson MD 08/03/2021 09:50 A Singh Dotson MD I personally saw this patient on the day of the encounter, performed the weir portion(s) of the service and participated in the management and confirm the resident's documentation. Please note there may be an additional personal documentation from me. Date Dict: 08/02/2021/08:12 P/Kayla Wing CNP Date Trans: 08/03/2021 01:27 A/tangela [id number] cc: Deb Klein M.D. [place] [address] [facility] [phone] [facility] Summary Purpose Family History No Family [...] section and content) DATE CREATED AUTHOR 04/01/2021 [facility] DATE CREATED AUTHOR AUTHOR'S ORGANIZ ATION 03/23/2022 [facility] DATE CREATED AUTHOR AUTHOR'S ORGANIZ ATION 06/28/2022 [facility] DATE CREATED AUTHOR AUTHOR'S ORGANIZ ATION 03/04/2023 [facility] FOR RECORDS PERTAINING TO PATIENTS WHO ARE [...] BE BASED ON THE PRIMARY CLINICAL RECORDS. [facility] [employer] [facility]. provides no warranty or guarantee of the accuracy or completeness of information in this document.
[2023-08-05 19:46] LABS: Occult Blood Negative
== END 2023-08-05 14:17 | disposition home or self-care (01) ==
LOC: LAB 14:16
PROVIDERS: PCP Family Medicine; Visit Provider Family Medicine
DX: J20.9 Acute bronchitis, unspecified (principal); E29.1 Testicular hypofunction; E78.00 Pure hypercholesterolemia, unspecified; I48.20 Chronic atrial fibrillation, unspecified; U07.1 COVID-19; E78.5 Hyperlipidemia, unspecified; R73.09 Other abnormal glucose; Z12.5 Encounter for screening for malignant neoplasm of prostate; Z12.12 Encounter for screening for malignant neoplasm of rectum
CPT/HCPCS: G0328

== ENCOUNTER 2024-02-26 13:07 | Outpatient (OUT) | payer MEDICARE, OTHER, SELFPAY ==
--- NOTE | 2024-02-26 13:10 | CA_ITS ---
Patient Name: IRSAEL GALEANA MR#: [id number] : 1950 Exam Date: 02/26/2024 Ordering Doctor: MALGORZATA DANIELLE ECHOCARDIOGRAM REPORT PROCEDURE: CA ECHO DOPPLER COMPLETE INDICATIONS: Atrial fibrillation, ASHD, Nonrheumatic AI COMPARISON: None. DESCRIPTION: COMPLETE ECHOCARDIOGRAM Real-time transthoracic echocardiography with 2D, M-mode, spectral and color flow Doppler performed. QUALITY: Technical quality was good. LEFT VENTRICLE: Normal chamber size. Mild concentric left ventricular hypertrophy. Global left ventricular systolic function is normal. LV EF: Estimated left ventricular ejection fraction is 55-60% DIASTOLIC: ATRIAL SEPTUM: LEFT ATRIUM: Moderate dilatation. RIGHT ATRIUM: Moderate dilatation. RIGHT VENTRICLE: Normal chamber size. Normal right ventricular systolic function. TRICUSPID VALVE: Normal mobility and thickness. No stenosis with mild regurgitation. No evidence of pulmonary hypertension. RVSP 21 mmHg MITRAL VALVE: Normal mobility and thickness. No evidence of mitral valve stenosis. There is no mitral annular calcification. Mild mitral regurgitation. AORTIC VALVE: Normal leaflet mobility. No evidence of aortic valve stenosis. No aortic regurgitation. AORTIC ROOT: Normal diameter and appearance. PULMONIC VALVE: Normal thickness and mobility. No stenosis. Trivial regurgitation. PERICARDIUM: No evidence of pericardial effusion. IVC: Collapses with inspirations. Normal size. PLEURA: CONCLUSION: 1. Mild concentric left ventricular hypertrophy with normal systolic function. Estimated LVEF is 55 to 60%. 2. Normal right ventricular size and systolic function. 3. Moderate biatrial dilatation. 4. Mild mitral and tricuspid regurgitation. 5. Normal right-sided pressures. 6. No pericardial effusion. Adult Echocardiography Procedure Report Left Ventricle LVEDD (3.7 - 5.6 cm): 3.99 cm LVESD (2.2 - 4.0 cm): 2.69 cm LVIVS thickness (0.6 - 1.2 cm): 1.38 cm LVPW thickness (0.5 - 1.0 cm): 1.38 cm e': 0.09 m/s E - e': 8.26 LVOT Max Gradient: 1.58 mm[Hg] LVOT Area (cm2): 0.63 m/s Peak Velocity (LVOT): 0.63 m/s Mean Velocity (LVOT): 0.44 m/s LVOT Diameter 2.13 cm Left Ventricular Ejection Fraction: 55-60 % Left Atrium LA Volume Index (2D A2C): 62.41 ml/m2 Left Atrium Systolic Dimension: 4.03 cm Mitral Valve MV E to A Ratio: 2.14 Mitral Valve A-Wave Peak Velocity: 0.35 m/s Mitral Valve E-Wave Peak Velocity: 0.74 m/s Right Ventricle RV Internal Diastolic Dimension: 3.57 cm Aorta AO Root Diam: 3.26 cm Ascending Ao Diam: 3.46 cm Aortic Valve AoV Area (Peak Carlos): 1.79 cm2, 1.79 cm2, 1.05 cm2, 1.05 cm2 AoV Area (VTI): 1.75 cm2, 1.75 cm2 Peak Velocity(Antegrade Flow): 1.25 m/s, 2.13 m/s Peak Gradient(Antegrade Flow): 18.07 mm[Hg], 6.20 mm[Hg] Mean Velocity(Antegrade Flow): 0.89 m/s Mean Gradient(Antegrade Flow): 3.62 mm[Hg] Velocity Time Integral: 24.92 cm Tricuspid Valve Peak Velocity (Regurgitant Flow): 2.08 m/s, 2.10 m/s Pulmonic Valve Mean Gradient: 1.11 mm[Hg] Mean Velocity: 0.51 m/s Peak Velocity: 0.75 m/s, 0.67 m/s Peak Gradient: 2.25 mm[Hg], 1.77 mm[Hg] Right Atrium Right Atrium Systolic Pressure: 79.21 ml, 79.21 ml Dictated by: Dwayne Ochoa M.D. on 02/26/2024 at 16:57 Approved by: Dwayne Ochoa M.D. on 02/26/2024 at 17:03
--- OUTSIDE RECORDS SUMMARY | 2024-02-26 13:15 | XMS_ITS | CCD ---
Author Organization [facility] Care Team Providers Care Independent Marketing Consultant Name Role Phone DEB KLEIN Primary Care Unavailable HOY, DEB Referring Unavailable MASROOR, SINGH Admitting Unavailable MASROOR, SINGH Attending Unavailable HOYMARGARITADEB Referring Unavailable MOUKARBELPIPPA V Attending Unavailable MOUKARBELPIPPA V Admitting Unavailable HOYDEB Primary Care Unavailable HOY, DEB Referring Unavailable SHASHI, MALGORZATA M Attending Unavailable SHASHI, MALGORZATA M Admitting Unavailable HOYDEB Primary Care Unavailable SHASHIFRANKIEMALGORZATA Admitting Unavailable SHASHIFRANKIEMALGORZATA Attending Unavailable HOY, DR BOYD Primary Care Unavailable SHASHI, MALGORZATA Consulting Unavailable HOY, DR BOYD Admitting Unavailable [...] disease (3 sources) 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; 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 Performed By: #### P SAFREE #### [facility] [address] [address] [address] Matt Suero Prostate specific Ag [Mass/Vol] 1.7 ng/mL Normal 0.0-4.0 [facility] Comment on above: Result Comment: Roch e ECLIA methodology. . According to the [employer], Serum PSA should decrease and [...] disease. Performed By: #### P SAFREE #### [facility] [address] [address] [address] Matt Suero PSA, Free 0.25 ng/mL Normal N/A [facility] Comment on above: Result Comment: Roch e ECLIA methodology. Performed By: #### P SAFREE #### [facility] [address] [address] [address] Matt Suero TESTOSTERONE, TOTALon 2021 Testosterone [Mass/Vol] 302 ng/dL Normal 264-916 [facility] Comment on above: Result Comment: Adul t male reference interval is based on a population of healthy nonobese males (BMI <30) between 19 and 39 years old. yoli Villalobos.al. JCEM 2017,102;6792-4804. PMID: [id number]. Performed By: #### O BSCRN #### [facility] [address] [address] [address] Matt Suero 36on 06-07-2022 36 You saw patient on (in [place]) and he wanted to know if he could stop lasix. I don't see a mention of it in your assessment/plan. Can he stop? Normal [facility] PSA, FREE AND TOTAL RATIOon 02-02-2022 % Free PSA 13.2 % Normal [facility] Comment on above: Result Comment: The [...] men. Performed By: #### O BSCRN #### [facility] [id number] Matt Suero Prostate specific Ag [Mass/Vol] 2.2 ng/mL Normal 0.0-4.0 [facility] Comment on above: Result Comment: Keiko TURNER methodology. . According to the [employer], Serum PSA should decrease and [...] disease. Performed By: #### O BSCRN #### [facility] [address] [place], [place] [address] Dr. Matt Suero PSA, Free 0.29 ng/mL Normal N/A [facility] Comment on above: Result Comment: Keiko MCCORMICKIA methodology. Performed By: #### O BSCRN #### [facility] [address] [place], [place] [address] Dr. Matt Suero ECHOCARDIO M/2D COMPLETEon 0 01-03-2022 ECHOCARDIO M/2D COMPLETE Patient: ISRAEL DEVINE Exam Date: 01/03/2022 : 1950 Gender:M Ordering : MALGORZATA MichaelDeana DANIELLE Admission #: [id number] Family : DR DEB KLEIN . Order #: [id number] CLICK HERE TO VIEW EXAM ECHOCARDIOGRAM REPORT [...] Sr M.D. on 01/03/2022 at 13:41 Normal [facility] PSA, FREE AND TOTAL RATIOon 12-21-2021 % Free PSA 25.3 % Normal [facility] Comment on above: Result Comment: The [...] men. Performed By: #### O BSCRN #### [facility] [address] [address] [address] Matt Suero Prostate specific Ag [Mass/Vol] 10.4 ng/mL Critically high 0.0-4.0 [facility] Comment on above: Result Comment: Keiko menendez ECLIA methodology. . According to the [employer], Serum PSA should decrease and [...] disease. Performed By: #### O BSCRN #### [facility] [address] [address] [address] Matt Suero PSA, Free 2.63 ng/mL Normal N/A [facility] Comment on above: Result Comment: Keiko menendez ECLIA methodology. Performed By: #### O BSCRN #### [facility] [address] [address] [address] Matt Suero INSULINon 12-20-2021 Insulin 13.6 uIU/mL Normal 2.6-24.9 [facility] Comment on above: Performed By: #### I NSULIN #### [facility] [address] [address] [address] Matt Suero TESTOSTERONE, TOTALon 2021 Testosterone [Mass/Vol] 250 ng/dL Critically low 264-916 [facility] Comment on above: Result Comment: Adul t male reference interval is based on a population of healthy nonobese males (BMI <30) between 19 and 39 years old. Wilfredo et.al. JCEM 2017,102;7626-9778. PMID: [id number]. Performed By: #### O BSCRN #### [facility] [address] [place] [address] Dr. Matt Suero BNPon 12-19-2021 Natriuretic peptide B (Bld) [Mass/Vol] 795.0 pg/mL Normal <=900.0 [facility] Comment on above: Performed By: #### B STORE STANDARDS ASSOCIATE, URIC, CMP, LIPID #### [facility] [address] [place] [address] Dr. Matt Suero CBC AUTO DIFFon 12-19-2021 BASO # 0.1 103/ul Normal 0.0-0.1 [facility] Comment on above: Performed By: #### C BC #### [facility] [address] [place] [address] Dr. Matt Suero Basophils/100 WBC (Bld) 0.6 % Normal 0.2-2.0 [facility] Comment on above: Performed By: #### C BC #### [facility] [address] [place] [address] Dr. Matt Suero EO # 0.3 103/ul Normal 0.0-0.7 [facility] Comment on above: Performed By: #### C BC #### [facility] [address] [place] [address] Dr. Matt Suero Eosinophils/100 WBC (Bld) 2.6 % Normal 0.9-7.0 [facility] Comment on above: Performed By: #### C BC #### [facility] [address] [place] [address] Dr. Matt Suero Erythrocyte distribution width (RBC) [Ratio] 14.4 % Normal 11.0-15.0 [facility] Comment on above: Performed By: #### C BC #### [facility] [address] [place] [address] Dr. Matt Suero Hematocrit (Bld) [Volume fraction] 36.5 % Critically low 42.0-54.0 [facility] Comment on above: Performed By: #### C BC #### [facility] [address] [place] [address] Dr. Matt Suero Hemoglobin (Bld) [Mass/Vol] 11.6 g/dL Critically low 14.0-18.0 [facility] Comment on above: Performed By: #### C BC #### [facility] [address] [place] [address] Dr. Matt Suero IG # 0.03 10e3/ul Normal 0.00-0.03 [facility] Comment on above: Performed By: #### C BC #### [facility] [address] [place] [address] Dr. Matt Suero IG % 0.3 % Normal 0.0-0.5 [facility] Comment on above: Performed By: #### C BC #### [facility] [address] [place] [address] Dr. Matt Suero LYMPH # 0.9 103/ul Critically low 1.2-3.8 [facility] Comment on above: Performed By: #### C BC #### [facility] [address] [place] [address] Dr. Matt Suero Lymphocytes/100 WBC (Bld) 8.8 % Critically low 20.5-60.0 [facility] Comment on above: Performed By: #### C BC #### [facility] [address] [place] [address] Dr. Matt Suero MANUAL DIFF REQ NO Normal [facility] Comment on above: Performed By: #### C BC #### [facility] [address] [place] [address] Dr. Mtat Suero MCH (RBC) [Entitic mass] 28.8 pg Normal 25.9-34.0 [facility] Comment on above: Performed By: #### C BC #### [facility] [address] [place] [address] Dr. Matt Suero MCHC (RBC) [Mass/Vol] 31.8 g/dL Normal 29.9-35.2 [facility] Comment on above: Performed By: #### C BC #### [facility] [address] [place] [address] Dr. Matt Suero MCV (RBC) [Entitic vol] 90.6 fL Normal 80.0-94.0 [facility] Comment on above: Performed By: #### C BC #### [facility] [address] [place] [address] Dr. Matt Suero MONO # 1.0 103/ul Critically high 0.3-0.8 [facility] Comment on above: Performed By: #### C BC #### [facility] [address] [place] [address] Dr. Matt Suero Monocytes/100 WBC (Bld) 9.2 % Normal 1.7-12.0 [facility] Comment on above: Performed By: #### C BC #### [facility] [address] [place] [address] Dr. Matt Suero NEUT # 8.3 103/ul Critically high 1.4-6.5 [facility] Comment on above: Performed By: #### C BC #### [facility] [address] [place] [address] Dr. Matt Suero Neutrophils/100 WBC (Bld) 78.5 % Critically high 43.0-75.0 [facility] Comment on above: Performed By: #### C BC #### [facility] [address] [place] [address] Dr. Matt Suero Platelet mean volume (Bld) [Entitic vol] 8.8 fL Critically low 9.5-13.5 [facility] Comment on above: Performed By: #### C BC #### [facility] [address] [place] [address] Dr. Matt Suero PLT 277 103/ul Normal 150-450 [facility] Comment on above: Performed By: #### C BC #### [facility] [address] [place] [address] Dr. Matt Suero RBC 4.03 106/ul Critically low 4.70-6.10 [facility] Comment on above: Performed By: #### C BC #### [facility] [address] [place] [address] Dr. Matt Suero WBC 10.6 103/ul Normal 4.0-11.0 [facility] Comment on above: Performed By: #### C BC #### [facility] [address] [address] [address] Matt Suero GLYCOHEMOGLOBIN A1Con 2021 ADA RECOMMENDATION SEE BELOW Normal [facility] Comment on above: Result Comment: ADA RECOMMENDED LIMIT 4.0 - 6.0 ADA THERAPEUTIC TARGET < 7.0 ACTION SUGGESTED > 7.0 Performed By: #### O BSCRN #### [facility] [address] [place] [address] Dr. Matt Suero Glucose [Mass/Vol] 126 mg/dL Normal [facility] Comment on above: Performed By: #### O BSCRN #### [facility] [address] [place] [address] Dr. Matt Suero HbA1c (Bld) [Mass fraction] 6.0 % Normal 4.5-6.2 [facility] Comment on above: Performed By: #### O BSCRN #### [facility] [address] [place] [address] Dr. Matt Suero LIPID PROFILEon 12-19-2021 CHOL-HDL RATIO NORM SEE BELOW Normal [facility] Comment on above: Result Comment: 3.3 - 4.4 LOW RISK 4.4 - 7.1 AVERAGE RISK 7.1 - 11.0 MODERATE RISK >11.0 HIGH RISK Performed By: #### B STORE STANDARDS ASSOCIATE, URIC, CMP, LIPID #### [facility] [address] [place] [address] Dr. Matt Suero Cholesterol [Mass/Vol] 153 mg/dL Normal <=200 [facility] Comment on above: Performed By: #### B STORE STANDARDS ASSOCIATE, URIC, CMP, LIPID #### [facility] [address] [place] [address] Dr. Matt Suero Cholesterol in HDL [Mass/Vol] 69 mg/dL Critically high 40-60 [facility] Comment on above: Performed By: #### B STORE STANDARDS ASSOCIATE, URIC, CMP, LIPID #### [facility] [address] [place] [address] Dr. Matt Suero Cholesterol in LDL [Mass/Vol] 69.0 mg/dL Normal [facility] Comment on above: Performed By: #### B STORE STANDARDS ASSOCIATE, URIC, CMP, LIPID #### [facility] [address] [address] [address] Matt Suero Cholesterol.total/ Cholesterol in HDL [Mass ratio] 2.2 {ratio} Normal [facility] Comment on above: Performed By: #### B STORE STANDARDS ASSOCIATE, URIC, CMP, LIPID #### [facility] [address] [address] [address] Matt Suero HDL NORMAL > or = 60 mg/dl - LO W CARDIOVASCULAR RISK <40 mg/dl - HIGH CARDIOVASCULAR RISK Normal [facility] Comment on above: Performed By: #### B STORE STANDARDS ASSOCIATE, URIC, CMP, LIPID #### [facility] [address] [address] [address] Matt Suero LDL CALC NORMAL SEE BELOW Normal [facility] Comment on above: Result Comment: <100 mg/dl OPTIMAL 100 - 129 mg/dl NEAR OR ABOVE OPTIMAL 130 - 159 mg/dl BORDERLINE HIGH 160 - 189 mg/dl HIGH >190 mg/dl VERY HIGH Performed By: #### B STORE STANDARDS ASSOCIATE, URIC, CMP, LIPID #### [facility] [address] [address] [address] Matt Suero Triglyceride [Mass/Vol] 72 mg/dL Normal <=150 [facility] Comment on above: Performed By: #### B STORE STANDARDS ASSOCIATE, URIC, CMP, LIPID #### [facility] [address] [address] [address] Matt Suero VLDL CALC 14.4 mg/dL Normal [facility] Comment on above: Performed By: #### B STORE STANDARDS ASSOCIATE, URIC, CMP, LIPID #### [facility] [address] [address] [address] Matt Suero OCC BLD IMMUNO SCREENon 11-27 OCCULT BLOOD Negative Normal NEGATIVE [facility] Comment on above: Performed By: #### O BSCRN #### [facility] [address] [address] [address] Matt Suero PROF 14(COMP METB)on 022 Albumin [Mass/Vol] 3.3 g/dL Critically low 3.4-5.0 [facility] Comment on above: Performed By: #### B STORE STANDARDS ASSOCIATE, URIC, CMP, LIPID #### [facility] [address] [address] [address] Matt Suero Albumin/Globulin [Mass ratio] 0.8 {ratio} Normal [facility] Comment on above: Performed By: #### B STORE STANDARDS ASSOCIATE, URIC, CMP, LIPID #### [facility] [address] [address] [address] Matt Suero ALP [Catalytic activity/Vol] 76 U/L Normal 46-116 [facility] Comment on above: Performed By: #### B STORE STANDARDS ASSOCIATE, URIC, CMP, LIPID #### [facility] [address] [place] [address] Dr. Matt Suero ALT [Catalytic activity/Vol] 24 U/L Normal 16-63 [facility] Comment on above: Performed By: #### B STORE STANDARDS ASSOCIATE, URIC, CMP, LIPID #### [facility] [address] [place] [address] Dr. Matt Suero Anion gap [Moles/Vol] 13.8 mmol/L Normal [facility] Comment on above: Performed By: #### B STORE STANDARDS ASSOCIATE, URIC, CMP, LIPID #### [facility] [address] [place] [address] Dr. Matt Suero AST [Catalytic activity/Vol] 19 U/L Normal 15-37 [facility] Comment on above: Performed By: #### B STORE STANDARDS ASSOCIATE, URIC, CMP, LIPID #### [facility] [address] [place] [address] Dr. Matt Suero Bilirubin [Mass/Vol] 0.5 mg/dL Normal 0.2-1.0 [facility] Comment on above: Performed By: #### B STORE STANDARDS ASSOCIATE, URIC, CMP, LIPID #### [facility] [address] [place] [address] Dr. Matt Suero Calcium [Mass/Vol] 9.0 mg/dL Normal 8.5-10.1 [facility] Comment on above: Performed By: #### B STORE STANDARDS ASSOCIATE, URIC, CMP, LIPID #### [facility] [address] [address] [address] Matt Suero Chloride [Moles/Vol] 102 mmol/L Normal 98-107 [facility] Comment on above: Performed By: #### B STORE STANDARDS ASSOCIATE, URIC, CMP, LIPID #### [facility] [address] [address] [address] Matt Suero CO2 [Moles/Vol] 28.3 mmol/L Normal 21.0-32.[address] [facility] Comment on above: Performed By: #### B STORE STANDARDS ASSOCIATE, URIC, CMP, LIPID #### [facility] [address] [address] [address] Matt Suero Creatinine [Mass/Vol] 1.01 mg/dL Normal 0.70-1.30 [facility] Comment on above: Performed By: #### B STORE STANDARDS ASSOCIATE, URIC, CMP, LIPID #### [facility] [address] [place] [address] Dr. Matt Suero EGFR-AF JAPANESE >60 Normal >=[address] [facility] Comment on above: Performed By: #### B STORE STANDARDS ASSOCIATE, URIC, CMP, LIPID #### [facility] [address] [place] [address] Dr. Matt Suero EGFR-NON AF JAPANESE >60 Normal >=60 [facility] Comment on above: Performed By: #### B STORE STANDARDS ASSOCIATE, URIC, CMP, LIPID #### [facility] [address] [place] [address] Dr. Matt Suero Globulin (S) [Mass/Vol] 4.2 g/dL Normal [facility] Comment on above: Performed By: #### B STORE STANDARDS ASSOCIATE, URIC, CMP, LIPID #### [facility] [address] [place] [address] Dr. Matt Suero Glucose [Mass/Vol] 115 mg/dL Critically high 74-106 [facility] Comment on above: Performed By: #### B STORE STANDARDS ASSOCIATE, URIC, CMP, LIPID #### [facility] [address] [place] [address] Dr. Matt Suero Potassium [Moles/Vol] 4.6 mmol/L Normal 3.5-5.1 [facility] Comment on above: Performed By: #### B STORE STANDARDS ASSOCIATE, URIC, CMP, LIPID #### [facility] [address] [address] [address] Matt Suero Protein [Mass/Vol] 7.5 g/dL Normal 6.4-8.2 [facility] Comment on above: Performed By: #### B STORE STANDARDS ASSOCIATE, URIC, CMP, LIPID #### [facility] [address] [address] [address] Matt Suero Sodium [Moles/Vol] 140 mmol/L Normal 136-145 [facility] Comment on above: Performed By: #### B STORE STANDARDS ASSOCIATE, URIC, CMP, LIPID #### [facility] [address] [place] [address] Dr. Matt Suero Urea nitrogen [Mass/Vol] 21.0 mg/dL Critically high 7.0-18.0 [facility] Comment on above: Performed By: #### B STORE STANDARDS ASSOCIATE, URIC, CMP, LIPID #### [facility] [address] [place] [address] Dr. Matt Suero Urea nitrogen/Creatinin e [Mass ratio] 20.7 mg/mg Normal [facility] Comment on above: Performed By: #### B STORE STANDARDS ASSOCIATE, URIC, CMP, LIPID #### [facility] [address] [place] [address] Dr. Matt Suero URIC ACID SERUMon 12-19-2021 Urate [Mass/Vol] 5.2 mg/dL Normal 3.5-7.[address] [facility] Comment on above: Performed By: #### B STORE STANDARDS ASSOCIATE, URIC, CMP, LIPID #### [facility] [address] [place] [address] Dr. Matt Suero ECHOCARDIO M/2D COMPLETEon 0 09-08-2021 ECHOCARDIO M/2D COMPLETE Patient: ISRAEL DEVINE Exam Date: 09/08/2021 : 1950 Gender:M Ordering : DR PIPPA BENITEZ M.D. Admission #: [id number] Family : DR DEB KLEIN . Order #: [id number] CLICK HERE TO VIEW EXAM ECHOCARDIOGRAM REPORT [...] Area(A4C): 26.40 cm2 Left Atrium Systolic Volume(A2C): 867615 mm3 Left Atrium Systolic Volume(A4C): 33358 mm3 Mitral Valve MV E to A [...] Benitez M.D. on 09/08/2021 at 15:59 Normal [facility] BASIC METABOLIC PANELon 12-2 Calcium [Mass/Vol] 8.9 mg/dL Normal 8.6-10.3 [facility] Comment on above: Order Comment: Pneum othorax Performed By: #### 0 0071, 89738, 31690 ####[facility] [facility] [place] [place] [address], [facility] Chloride [Moles/Vol] 93 mmol/L Low 98-107 [facility] Comment on above: Order Comment: Pneum othorax Performed By: #### 0 0071, 75828, 45723 ####[facility] [facility] [place] [place] [address], [place] CO2 [Moles/Vol] 30 mmol/L Normal 21-31 [facility] Comment on above: Order Comment: Pneum othorax Performed By: #### 0 0071, 50582, 07908 ####[facility] [facility] [place] [address], [place] Creatinine [Mass/Vol] 1.00 mg/dL Normal 0.70-1.30 [facility] Comment on above: Order Comment: Pneum othorax Performed By: #### 0 0071, 34603, 25287 ####[facility] [place] [address], [place] GFR/1.73 sq M.predicted among blacks MDRD (S/P/Bld) [Vol rate/Area] mL/min/{1.73_m2} Normal >60 [facility] Comment on above: Order Comment: Pneum othorax Result Comment: Calc ulation may not be valid for patients over 70 years Performed By: #### 0 0071, 18768, 84516 ####[facility] [place] [address], [place] GFR/1.73 sq M.predicted among non-blacks MDRD (S/P/Bld) [Vol rate/Area] mL/min/{1.73_m2} Normal >60 [facility] Comment on above: Order Comment: Pneum othorax Result Comment: Calc ulation may not be valid for patients over 70 years Performed By: #### 0 0071, 88566, 25018 ####[facility] [place] [address], [place] Glucose [Mass/Vol] 112 mg/dL High 70-100 [facility] Comment on above: Order Comment: Pneum othorax Performed By: #### 0 0071, 63708, 69870 ####[facility] [place] [address], [place] Potassium [Moles/Vol] 3.9 mmol/L Normal 3.5-5.1 [facility] Comment on above: Order Comment: Pneum othorax Performed By: #### 0 0071, 79425, 89169 ####[facility] [place] [address], [place] Sodium [Moles/Vol] 134 mmol/L Low 136-145 [facility] Comment on above: Order Comment: Pneum othorax Performed By: #### 0 0071, 02306, 44605 ####[facility] Urea nitrogen [Mass/Vol] 20 mg/dL Normal 7-25 [facility] Comment on above: Order Comment: Pneum othorax Performed By: #### 0 0071, 23884, 87830 ####[facility] [facility] CBC COMPLETE BLOOD COUNTon 09-17-2020 Erythrocyte distribution width (RBC) [Ratio] 12.7 % Normal 11.5-15.0 [facility] Comment on above: Order Comment: No: D o not add to previous draw Performed By: #### 5 0608 #### [facility] [address] [facility] Hematocrit (Bld) [Volume fraction] 31.6 % Low 39.0-50.0 [facility] Comment on above: Order Comment: No: D o not add to previous draw Performed By: #### 5 0608 #### [facility] [address] Hemoglobin (Bld) [Mass/Vol] 10.3 g/dL Low 13.0-17.0 [facility] Comment on above: Order Comment: No: D o not add to previous draw Performed By: #### 5 0608 #### [facility] [address] [facility] [place] [address], [facility] MCH (RBC) [Entitic mass] 30.5 pg Normal 27.0-33.0 [facility] Comment on above: Order Comment: No: D o not add to previous draw Performed By: #### 5 0608 #### [facility] [address] [facility] [place] [id number], [facility] MCHC (RBC) [Mass/Vol] 32.6 g/dL Normal 32.0-35.0 [facility] Comment on above: Order Comment: No: D o not add to previous draw Performed By: #### 5 0608 #### [facility] [address] [facility] [place] [address], [facility] MCV (RBC) [Entitic vol] 93.5 fL Normal 82.0-98.0 [facility] Comment on above: Order Comment: No: D o not add to previous draw Performed By: #### 5 0608 #### [facility] [address] [facility] [place] [address], [facility] Nucleated RBC/100 WBC (Bld) [Ratio] 0 % Normal 0-0 [facility] Comment on above: Order Comment: No: D o not add to previous draw Performed By: #### 5 0608 #### [facility] [address] [facility]. [place], [place] [address], [facility] PLAT CNT 200 10*3/uL Normal 150-400 [facility] Comment on above: Order Comment: No: D o not add to previous draw Performed By: #### 5 0608 #### [facility] [address] [facility] [place] [place] [address], [facility] RBC (Bld) [#/Vol] 3.38 10*6/uL Low 4.20-5.70 [facility] Comment on above: Order Comment: No: D o not add to previous draw Performed By: #### 5 0608 #### [facility] [address] [facility] [place] [address], [facility] WBC (Bld) [#/Vol] 9.06 10*3/uL Normal 4.00-10.60 [facility] Comment on above: Order Comment: No: D o not add to previous draw Performed By: #### 5 0608 #### [facility] [address] [facility] [place] [address], [facility] MAGNESIUM BLOODon 07-17-2021 Magnesium [Mass/Vol] 1.8 mg/dL Low 1.9-2.7 [facility] Comment on above: Order Comment: Pneum othorax Performed By: #### 0 0071, 17526, 46881 ####[facility] [place] [address], [facility] PHOSPHORUS BLOODon Phosphate [Mass/Vol] 4.3 mg/dL Normal 2.5-5.0 [facility] Comment on above: Order Comment: Pneum othorax Performed By: #### 0 0071, 95351, 53459 ####[facility] [facility] [place] [address], [facility] POC GLUCOSE LABon 07-17-2021 Glucose [Mass/Vol] 151 mg/dL High 70-100 [facility] Comment on above: Performed By: #### 8 5499 #### [facility] [address] [facility] [place] [address], [facility] Glucose [Mass/Vol] 111 mg/dL High 70-100 [facility] Comment on above: Performed By: #### 8 5499 #### [facility] [address] [place], [place] [id number] [place] [address] PORTABLE CHEST 1 VIEWon 06-29 PORTABLE CHEST 1 VIEW [facility] Department of Radiology [address] [place] [id number] Patient Name: ISRAEL DEVINE : 1950 Sex: M Age: Race: White Pt. Location: [place] [address] Patient Status: I Ordered Date: 07/17/2021 5:00:00 [...] change Electronically signed: Kumar Ross. Transcribed by: [email or web address], User Resident: Electronically Signed by: KUMAR ROSS @ 07/17/2021 07:45 AM Normal [facility] Comment on above: Order Comment: The A ptima SARS-CoV-2 assay is a nucleic acid amplification test intended for the qualitative detection of RNA from SARS-CoV-2 isolated and purified from nasopharyngeal (STORE STANDARDS ASSOCIATE),oropharyngeal (OP), nasal swab, sputum, and bronchoalveolar lavage (BAL) specimens from patients with signs and symptoms of infection who are suspected of COVID-19. Results are for the identification of SARS-CoV-2 RNA. The SARS-CoV-2 RNA is generally detectable during the acute phase of infection. The Aptima SARS-CoV-2 Assay on the DCITS and [place] Fusion system is intended for use by laboratory personnel specifically instructed and trained in the operation of the [place] and DCITS Fusion system. The Aptima SARS-CoV-2 assay is [...] information. BASIC METABOLIC PANELon 12- Calcium [Mass/Vol] 8.6 mg/dL Normal 8.6-10.3 [facility] Comment on above: Order Comment: Pneum othorax Performed By: #### 4 1000, 74287, 49465 ####[facility] [place] [address], [facility] Chloride [Moles/Vol] 97 mmol/L Low 98-107 [facility] Comment on above: Order Comment: Pneum othorax Performed By: #### 4 1000, 98097, 02695 ####[facility] [place] [address], [facility] CO2 [Moles/Vol] 30 mmol/L Normal 21-31 [facility] Comment on above: Order Comment: Pneum othorax Performed By: #### 4 1000, 90790, 10170 ####[facility] [place] [address], [facility] Creatinine [Mass/Vol] 0.92 mg/dL Normal 0.70-1.30 [facility] Comment on above: Order Comment: Pneum othorax Performed By: #### 4 1000, 48991, 50167 ####[facility] [place] [address], [facility] GFR/1.73 sq M.predicted among blacks MDRD (S/P/Bld) [Vol rate/Area] mL/min/{1.73_m2} Normal >60 [facility] Comment on above: Order Comment: Pneum othorax Result Comment: Calc ulation may not be valid for patients over 70 years Performed By: #### 4 1000, 62494, 94484 ####[facility] [place] [address], [facility] GFR/1.73 sq M.predicted among non-blacks MDRD (S/P/Bld) [Vol rate/Area] mL/min/{1.73_m2} Normal >60 [facility] Comment on above: Order Comment: Pneum othorax Result Comment: Calc ulation may not be valid for patients over 70 years Performed By: #### 4 1000, 01530, 47095 ####[facility] [id number], [facility] Glucose [Mass/Vol] 107 mg/dL High 70-100 [facility] Comment on above: Order Comment: Pneum othorax Performed By: #### 4 999, 63438, 68689 ####[facility] [place] [address], [place] Potassium [Moles/Vol] 4.1 mmol/L Normal 3.5-5.1 [facility] Comment on above: Order Comment: Pneum othorax Performed By: #### 4 999, 32930, 98569 ####[facility] [id number], [facility] Sodium [Moles/Vol] 134 mmol/L Low 136-145 [facility] Comment on above: Order Comment: Pneum othorax Performed By: #### 4 999, 34188, 34499 ####[facility] [place] [address], [facility] Urea nitrogen [Mass/Vol] 22 mg/dL Normal 7-25 [facility] Comment on above: Order Comment: Pneum othorax Performed By: #### 4 999, 05343, 07672 ####[facility] [facility] [place] [place] [address], [facility] CBC COMPLETE BLOOD COUNTon 09-16-2020 Erythrocyte distribution width (RBC) [Ratio] 12.5 % Normal 11.5-15.0 [facility] Comment on above: Order Comment: No: D o not add to previous draw Performed By: #### 5 0608 #### [facility] [address] [place] [address], [facility] Hematocrit (Bld) [Volume fraction] 27.1 % Low 39.0-50.0 [facility] Comment on above: Order Comment: No: D o not add to previous draw Performed By: #### 5 0608 #### [facility] [address] [place] [address], [facility] Hemoglobin (Bld) [Mass/Vol] 8.8 g/dL Low 13.0-17.0 [facility] Comment on above: Order Comment: No: D o not add to previous draw Performed By: #### 5 0608 #### [facility] [address] [place] [address], [facility] MCH (RBC) [Entitic mass] 30.1 pg Normal 27.0-33.0 [facility] Comment on above: Order Comment: No: D o not add to previous draw Performed By: #### 5 0608 #### [facility] [address] [place] [address], [facility] MCHC (RBC) [Mass/Vol] 32.5 g/dL Normal 32.0-35.0 [facility] Comment on above: Order Comment: No: D o not add to previous draw Performed By: #### 5 0608 #### [facility] [address] [facility] [place] [address], [facility] MCV (RBC) [Entitic vol] 92.8 fL Normal 82.0-98.0 [facility] Comment on above: Order Comment: No: D o not add to previous draw Performed By: #### 5 0608 #### [facility] [address] [facility] [place] [address], [facility] Nucleated RBC/100 WBC (Bld) [Ratio] 0 % Normal 0-0 [facility] Comment on above: Order Comment: No: D o not add to previous draw Performed By: #### 5 0608 #### [facility] [address] [facility] [place] [address], [facility] PLAT CNT 147 10*3/uL Low 150-400 [facility] Comment on above: Order Comment: No: D o not add to previous draw Performed By: #### 5 0608 #### [facility] [address] [place] [address], [facility] RBC (Bld) [#/Vol] 2.92 10*6/uL Low 4.20-5.70 [facility] Comment on above: Order Comment: No: D o not add to previous draw Performed By: #### 5 0608 #### [facility] [address] [place] [address], [facility] WBC (Bld) [#/Vol] 6.78 10*3/uL Normal 4.00-10.60 [facility] Comment on above: Order Comment: No: D o not add to previous draw Performed By: #### 5 0608 #### [facility] [address] MAGNESIUM BLOODon 07-16-2021 Magnesium [Mass/Vol] 2.0 mg/dL Normal 1.9-2.7 [facility] Comment on above: Order Comment: Pneum othorax Performed By: #### 4 1000, 64289, 31665 ####[facility] [place], [place] [id number] [place] [address] PHOSPHORUS BLOODon Phosphate [Mass/Vol] 3.5 mg/dL Normal 2.5-5.0 [facility] Comment on above: Order Comment: Pneum othorax Performed By: #### 4 1000, 32421, 91400 ####[facility] POC GLUCOSE LABon 07-16-2021 Glucose [Mass/Vol] 118 mg/dL High 70-100 [facility] Comment on above: Performed By: #### 8 5499 #### [facility] [address] [place], [place] [id number] [place] [address] PORTABLE CHEST 1 VIEWon 06-28 PORTABLE CHEST 1 VIEW [facility] Department of Radiology [address] [place] [address] Patient Name: ISRAEL DEVINE : 1950 Sex: M Age: Race: White Pt. Location: [place] [address] Patient Status: I Ordered Date: 07/16/2021 1:55:00 [...] pneumothorax. Electronically signed: Cece Kim. Transcribed by: [email or web address], User Resident: Electronically Signed by: CECE KIM @ 07/16/2021 02:28 PM [place] [facility] Comment on above: Order Comment: The A ptima SARS-CoV-2 assay is a nucleic acid amplification test intended for the qualitative detection of RNA from SARS-CoV-2 isolated and purified from nasopharyngeal (STORE STANDARDS ASSOCIATE),oropharyngeal (OP), nasal swab, sputum, and bronchoalveolar lavage (BAL) specimens from patients with signs and symptoms of infection who are suspected of COVID-19. Results are for the identification of SARS-CoV-2 RNA. The SARS-CoV-2 RNA is generally detectable during the acute phase of infection. The Aptima SARS-CoV-2 Assay on the [place] and [place] Fusion system is intended for use by laboratory personnel specifically instructed and trained in the operation of the [place] and [place] Fusion system. The Aptima SARS-CoV-2 assay is [...] and epidemiological information. PORTABLE CHEST 1 VIEW [facility] Department of Radiology [address] [place] [id number] Patient Name: ISRAEL DEVINE : 1950 Sex: M Age: Race: White Pt. Location: [place] [address] Patient Status: I Ordered Date: 07/16/2021 5:00:00 [...] effusion. Electronically signed: Cece Kim. Transcribed by: [email or web address], User Resident: Electronically Signed by: CECE KIM @ 07/16/2021 07:13 AM Normal [facility] Comment on above: Order Comment: Pneum othorax BASIC METABOLIC PANELon 12- Calcium [Mass/Vol] 7.6 mg/dL Low 8.6-10.3 [facility] Comment on above: Order Comment: No: D o not add to previous draw Performed By: #### 3 0965 #### [facility] [address] [place] [id number], [facility] Chloride [Moles/Vol] 98 mmol/L Normal 98-107 [facility] Comment on above: Order Comment: No: D o not add to previous draw Performed By: #### 3 0965 #### [facility] [address] [place] [address], [place] CO2 [Moles/Vol] 28 mmol/L Normal 21-31 [facility] Comment on above: Order Comment: No: D o not add to previous draw Performed By: #### 3 0965 #### [facility] [address] [place] [address], [place] Creatinine [Mass/Vol] 0.78 mg/dL Normal 0.70-1.30 [facility] Comment on above: Order Comment: No: D o not add to previous draw Performed By: #### 3 0965 #### [facility] [address] [place] [address], [place] GFR/1.73 sq M.predicted among blacks MDRD (S/P/Bld) [Vol rate/Area] mL/min/{1.73_m2} Normal >60 [facility] Comment on above: Order Comment: No: D o not add to previous draw Result Comment: Calc ulation may not be valid for patients over 70 years Performed By: #### 3 0965 #### [facility] [address] [place] [address], [place] GFR/1.73 sq M.predicted among non-blacks MDRD (S/P/Bld) [Vol rate/Area] mL/min/{1.73_m2} Normal >60 [facility] Comment on above: Order Comment: No: D o not add to previous draw Result Comment: Calc ulation may not be valid for patients over 70 years Performed By: #### 3 0965 #### [facility] [address] [place] [address], [place] Glucose [Mass/Vol] 123 mg/dL High 70-100 [facility] Comment on above: Order Comment: No: D o not add to previous draw Performed By: #### 3 0965 #### [facility] [address] [place] [address], [place] Potassium [Moles/Vol] 4.4 mmol/L Normal 3.5-5.1 [facility] Comment on above: Order Comment: No: D o not add to previous draw Performed By: #### 3 0965 #### [facility] [address] [place] [address], [place] Sodium [Moles/Vol] 132 mmol/L Low 136-145 [facility] Comment on above: Order Comment: No: D o not add to previous draw Performed By: #### 3 0965 #### [facility] [address] [place] [address], [place] Urea nitrogen [Mass/Vol] 23 mg/dL Normal 7-25 [facility] Comment on above: Order Comment: No: D o not add to previous draw Performed By: #### 3 0965 #### [facility] [address] [place] [address], [place] CBC COMPLETE BLOOD COUNTon 09-15-2020 Erythrocyte distribution width (RBC) [Ratio] 12.6 % Normal 11.5-15.0 [facility] Comment on above: Order Comment: No: D o not add to previous draw Performed By: #### 8 [id number] #### [facility] [address] [place] [address], [facility] Hematocrit (Bld) [Volume fraction] 25.3 % Low 39.0-50.0 [facility] Comment on above: Order Comment: No: D o not add to previous draw Performed By: #### 8 5499 #### [facility] [address] [facility] [place] [address], [facility] Hemoglobin (Bld) [Mass/Vol] 8.2 g/dL Low 13.0-17.0 [facility] Comment on above: Order Comment: No: D o not add to previous draw Performed By: #### 8 5499 #### [facility] [address] [facility] [place] [address], [facility] IMM PLATELET FRAC 3.4 % Normal 0.8-6.3 [facility] Comment on above: Order Comment: No: D o not add to previous draw Performed By: #### 8 5499 #### [facility] [address] [facility] [place] [address], [facility] MCH (RBC) [Entitic mass] 30.0 pg Normal 27.0-33.0 [facility] Comment on above: Order Comment: No: D o not add to previous draw Performed By: #### 8 5499 #### [facility] [address] [facility] [place] [address], [facility] MCHC (RBC) [Mass/Vol] 32.4 g/dL Normal 32.0-35.0 [facility] Comment on above: Order Comment: No: D o not add to previous draw Performed By: #### 8 5499 #### [facility] [address] [place] [id number], [facility] MCV (RBC) [Entitic vol] 92.7 fL Normal 82.0-98.0 [facility] Comment on above: Order Comment: No: D o not add to previous draw Performed By: #### 8 5499 #### [facility] [address] [place] [address], [facility] Nucleated RBC/100 WBC (Bld) [Ratio] 0 % Normal 0-0 [facility] Comment on above: Order Comment: No: D o not add to previous draw Performed By: #### 8 5499 #### [facility] [address] [place] [address], [facility] PLAT CNT 125 10*3/uL Low 150-400 [facility] Comment on above: Order Comment: No: D o not add to previous draw Performed By: #### 8 5499 #### [facility] [address] [facility] [place] [address], [facility] RBC (Bld) [#/Vol] 2.73 10*6/uL Low 4.20-5.70 [facility] Comment on above: Order Comment: No: D o not add to previous draw Performed By: #### 8 5499 #### [facility] [address] [place] [address], [facility] WBC (Bld) [#/Vol] 9.34 10*3/uL Normal 4.00-10.60 [facility] Comment on above: Order Comment: No: D o not add to previous draw Performed By: #### 8 5499 #### [facility] [address] [place] [address], [facility] MAGNESIUM BLOODon 07-15-2021 Magnesium [Mass/Vol] 2.0 mg/dL Normal 1.9-2.7 [facility] Comment on above: Order Comment: No: D o not add to previous draw Performed By: #### 3 0965 #### [facility] [address] [place] [address], [facility] PHOSPHORUS BLOODon Phosphate [Mass/Vol] 3.4 mg/dL Normal 2.5-5.0 [facility] Comment on above: Performed By: #### 3 0965 #### [address] POC GLUCOSE LABon 07-15-2021 Glucose [Mass/Vol] 127 mg/dL High 70-100 [facility] Comment on above: Performed By: #### 3 1595 #### [place] [address], [facility] Glucose [Mass/Vol] 146 mg/dL High 70-100 [facility] Comment on above: Performed By: #### 5 0608 #### [address] PORTABLE CHEST 1 VIEWon 06-28 PORTABLE CHEST 1 VIEW [facility] Department of Radiology [address] [place], [place] [id number] Patient Name: ISRAEL DEVINE : 1950 Sex: M Age: Race: White Pt. Location: [place] [address] Patient Status: I Ordered Date: 07/15/2021 5:00:00 [...] improvement Electronically signed: Kumar Ross. Transcribed by: [email or web address], User Resident: Electronically Signed by: KUMAR ROSS @ 07/16/2021 04:09 PM Normal [facility] Comment on above: Order Comment: The A ptima SARS-CoV-2 assay is a nucleic acid amplification test intended for the qualitative detection of RNA from SARS-CoV-2 isolated and purified from nasopharyngeal (STORE STANDARDS ASSOCIATE),oropharyngeal (OP), nasal swab, sputum, and bronchoalveolar lavage (BAL) specimens from patients with signs and symptoms of infection who are suspected of COVID-19. Results are for the identification of SARS-CoV-2 RNA. The SARS-CoV-2 RNA is generally detectable during the acute phase of infection. The Aptima SARS-CoV-2 Assay on the DCITS and DCITS Fusion system is intended for use by laboratory personnel specifically instructed and trained in the operation of the [place] and [employer]ITS Fusion system. The Aptima SARS-CoV-2 assay is [...] history, and epidemiological information. BASIC METABOLIC PANELon - Calcium [Mass/Vol] 8.0 mg/dL Low 8.6-10.3 [facility] Comment on above: Order Comment: No: D o not add to previous draw Performed By: #### 3 0965 #### [place] [address] [place] [address], [place] Chloride [Moles/Vol] 101 mmol/L Normal 98-107 [facility] Comment on above: Order Comment: No: D o not add to previous draw Performed By: #### 3 0965 #### [facility] [address] [place] [address], [place] CO2 [Moles/Vol] 24 mmol/L Normal 21-31 [facility] Comment on above: Order Comment: No: D o not add to previous draw Performed By: #### 3 0965 #### [facility] [address] [place] [address], [place] Creatinine [Mass/Vol] 0.92 mg/dL Normal 0.70-1.30 [facility] Comment on above: Order Comment: No: D o not add to previous draw Performed By: #### 3 0965 #### [facility] [address] [place] [address], [place] GFR/1.73 sq M.predicted among blacks MDRD (S/P/Bld) [Vol rate/Area] mL/min/{1.73_m2} Normal >60 [facility] Comment on above: Order Comment: No: D o not add to previous draw Result Comment: Calc ulation may not be valid for patients over 70 years Performed By: #### 3 0965 #### [facility] [address] [place] [address], [place] GFR/1.73 sq M.predicted among non-blacks MDRD (S/P/Bld) [Vol rate/Area] mL/min/{1.73_m2} Normal >60 [facility] Comment on above: Order Comment: No: D o not add to previous draw Result Comment: Calc ulation may not be valid for patients over 70 years Performed By: #### 3 0965 #### [facility] [address] [place] [address], [place] Glucose [Mass/Vol] 120 mg/dL High 70-100 [facility] Comment on above: Order Comment: No: D o not add to previous draw Performed By: #### 3 0965 #### [facility] [address] [place] [address], [facility] Potassium [Moles/Vol] 4.2 mmol/L Normal 3.5-5.1 [facility] Comment on above: Order Comment: No: D o not add to previous draw Performed By: #### 3 0965 #### [facility] [address] [place] [address], [place] Sodium [Moles/Vol] 134 mmol/L Low 136-145 [facility] Comment on above: Order Comment: No: D o not add to previous draw Performed By: #### 3 0965 #### [facility] [address] [place] [address], [facility] Urea nitrogen [Mass/Vol] 23 mg/dL Normal 7-25 [facility] Comment on above: Order Comment: No: D o not add to previous draw Performed By: #### 3 0965 #### [facility] [address] [place] [address], [facility] CBC COMPLETE BLOOD COUNTon 09-14-2020 Erythrocyte distribution width (RBC) [Ratio] 12.7 % Normal 11.5-15.0 [facility] Comment on above: Order Comment: No: D o not add to previous draw Performed By: #### 8 [id number] #### [facility] [address] [place] [address], [facility] Hematocrit (Bld) [Volume fraction] 30.5 % Low 39.0-50.0 [facility] Comment on above: Order Comment: No: D o not add to previous draw Performed By: #### 8 [id number] #### [facility] [address] [place] [address], [place] Hemoglobin (Bld) [Mass/Vol] 9.8 g/dL Low 13.0-17.0 [facility] Comment on above: Order Comment: No: D o not add to previous draw Performed By: #### 8 [id number] #### [facility] [address] [place] [address], [facility] MCH (RBC) [Entitic mass] 30.6 pg Normal 27.0-33.0 [facility] Comment on above: Order Comment: No: D o not add to previous draw Performed By: #### 8 [id number] #### [facility] [address] [place] [address], [facility] MCHC (RBC) [Mass/Vol] 32.1 g/dL Normal 32.0-35.0 [facility] Comment on above: Order Comment: No: D o not add to previous draw Performed By: #### 8 [id number] #### [facility] [address] [place] [address], [facility] MCV (RBC) [Entitic vol] 95.3 fL Normal 82.0-98.0 [facility] Comment on above: Order Comment: No: D o not add to previous draw Performed By: #### 8 [id number] #### [facility] [address] [place] [address], [facility] Nucleated RBC/100 WBC (Bld) [Ratio] 0 % Normal 0-0 [facility] Comment on above: Order Comment: No: D o not add to previous draw Performed By: #### 8 [id number] #### [facility] [address] [place] [address], [facility] PLAT CNT 110 10*3/uL Low 150-400 [facility] Comment on above: Order Comment: No: D o not add to previous draw Performed By: #### 8 [id number] #### [facility] [address] [place] [address], [facility] RBC (Bld) [#/Vol] 3.20 10*6/uL Low 4.20-5.70 [facility] Comment on above: Order Comment: No: D o not add to previous draw Performed By: #### 8 [id number] #### [facility] [address] [place] [address], [place] WBC (Bld) [#/Vol] 11.71 10*3/uL High 4.00-10.60 [facility] Comment on above: Order Comment: No: D o not add to previous draw Performed By: #### 8 [id number] #### [facility] [address] [place] [address], [place] MAGNESIUM BLOODon 07-14-2021 Magnesium [Mass/Vol] 2.1 mg/dL Normal 1.9-2.7 [facility] Comment on above: Order Comment: No: D o not add to previous draw Performed By: #### 3 0738 #### [facility] [address] [place] [address], [place] PHOSPHORUS BLOODon Phosphate [Mass/Vol] 1.6 mg/dL Low 2.5-5.0 [facility] Comment on above: Order Comment: No: D o not add to previous draw Performed By: #### 3 0738 #### [facility] [address] [place] [address], [place] POC GLUCOSE LABon 07-14-2021 Glucose [Mass/Vol] 156 mg/dL High 70-100 [facility] Comment on above: Performed By: #### 3 1595 #### [facility] [address] [place] [address], [place] Glucose [Mass/Vol] 158 mg/dL High 70-100 [facility] Comment on above: Performed By: #### 3 1595 #### [facility] [address] [place] [address], [place] Glucose [Mass/Vol] 149 mg/dL High 70-100 [facility] Comment on above: Performed By: #### 5 0608 #### [facility] [address] [place] [address], [place] Glucose [Mass/Vol] 156 mg/dL High 70-100 [facility] Comment on above: Performed By: #### 5 0608 #### [address] [address], [facility] PORTABLE CHEST 1 VIEWon 06-28 PORTABLE CHEST 1 VIEW [facility] Department of Radiology [address] [place] [phone] Patient Name: ISRAEL DEVINE : 1950 Sex: M Age: Race: White Pt. Location: [place] [address] Patient Status: I Ordered Date: 07/14/2021 5:00:00 [...] base. Electronically signed: Gretta Perkins. Transcribed by: [email or web address], User Resident: Electronically Signed by: GRETTA PERKINS @ 07/14/2021 07:18 AM Normal [facility] Comment on above: Order Comment: evalu ate for Pneumothorax POTASSIUM BLOODon 07-14-2021 Potassium [Moles/Vol] 3.8 mmol/L Normal 3.5-5.1 [facility] Comment on above: Order Comment: Pneum othorax Performed By: #### 4 1406 ####[facility] APTTon 07-13-2021 aPTT Coag (Bld) [Time] 34.0 s Normal 25.0-35.0 [facility] Comment on above: Order Comment: No: D [...] PURPOSE. Performed By: #### 5 0608 #### [facility] [address] [place] [address], [facility] ARTERIAL BLOOD GAS WITH ICAo n 07-13-2021 BASE EXCESS -1 mmol/L Normal -2-3 [facility] Comment on above: Performed By: #### 8 [id number] #### [facility] [address] [place] [address], [facility] DELIVERY SYSTEMS NASAL CANNULA Normal [facility] Comment on above: Performed By: #### 8 [id number] #### [facility] [address] [place] [address], [facility] HCO3 (Bld) [Moles/Vol] 24 mmol/L Normal 21-28 [facility] Comment on above: Performed By: #### 8 [id number] #### [facility] [address] [place] [id number], [facility] IONIZED CALCIUM 1.17 mmol/L Normal 1.13-1.32 [facility] Comment on above: Performed By: #### 8 5499 #### [facility] [address] [place] [address], [facility] LPM 2.0 LPM Normal [facility] Comment on above: Performed By: #### 8 [id number] #### [facility] [address] [place] [address], [facility] Oxygen (Bld) [Partial pressure] 96 mm[Hg] Normal 83-108 [facility] Comment on above: Performed By: #### 8 [id number] #### [facility] [address] [place] [address], [facility] Oxygen saturation in Blood 96.5 % Normal 94.0-97.0 [facility] Comment on above: Performed By: #### 8 [id number] #### [facility] [address] [place] [address], [facility] PCO2 38 mmHg Normal 35-45 [facility] Comment on above: Performed By: #### 8 [id number] #### [facility] [address] [place] [address], [facility] pH (Bld) 7.40 [pH] Normal 7.35-7.45 [facility] Comment on above: Performed By: #### 8 [id number] #### [facility] [address] [place] [address], [facility] BASIC METABOLIC PANELon 12 Calcium [Mass/Vol] 8.1 mg/dL Low 8.6-10.3 [facility] Comment on above: Order Comment: No: D o not add to previous draw Performed By: #### 5 0608 #### [facility] [address] [place] [address], [facility] Chloride [Moles/Vol] 108 mmol/L High 98-107 [facility] Comment on above: Order Comment: No: D o not add to previous draw Performed By: #### 5 0608 #### [facility] [address] [place] [address], [place] CO2 [Moles/Vol] 24 mmol/L Normal 21-31 [facility] Comment on above: Order Comment: No: D o not add to previous draw Performed By: #### 5 0608 #### [facility] [address] [place] [address], [place] Creatinine [Mass/Vol] 1.00 mg/dL Normal 0.70-1.30 [facility] Comment on above: Order Comment: No: D o not add to previous draw Performed By: #### 5 0608 #### [facility] [address] [place] [address], [place] GFR/1.73 sq M.predicted among blacks MDRD (S/P/Bld) [Vol rate/Area] mL/min/{1.73_m2} Normal >60 [facility] Comment on above: Order Comment: No: D o not add to previous draw Result Comment: Calc ulation may not be valid for patients over 70 years Performed By: #### 5 0608 #### [facility] [address] [place] [address], [place] GFR/1.73 sq M.predicted among non-blacks MDRD (S/P/Bld) [Vol rate/Area] mL/min/{1.73_m2} Normal >60 [facility] Comment on above: Order Comment: No: D o not add to previous draw Result Comment: Calc ulation may not be valid for patients over 70 years Performed By: #### 5 0608 #### [facility] [address] [place] [address], [place] Glucose [Mass/Vol] 118 mg/dL High 70-100 [facility] Comment on above: Order Comment: No: D o not add to previous draw Performed By: #### 5 0608 #### [facility] [address] [place] [address], [facility] Potassium [Moles/Vol] 4.3 mmol/L Normal 3.5-5.1 [facility] Comment on above: Order Comment: No: D o not add to previous draw Performed By: #### 5 0608 #### [facility] [address] [place] [address], [place] Sodium [Moles/Vol] 139 mmol/L Normal 136-145 [facility] Comment on above: Order Comment: No: D o not add to previous draw Performed By: #### 5 0608 #### [facility] [address] [place] [address], [facility] Urea nitrogen [Mass/Vol] 20 mg/dL Normal 7-25 [facility] Comment on above: Order Comment: No: D o not add to previous draw Performed By: #### 5 0608 #### [facility] [address] [place] [address], [facility] CBC COMPLETE BLOOD COUNTon 09-13-2020 Erythrocyte distribution width (RBC) [Ratio] 12.8 % Normal 11.5-15.0 [facility] Comment on above: Order Comment: No: D o not add to previous draw Performed By: #### 8 [id number] #### [facility] [address] [place] [address], [facility] Hematocrit (Bld) [Volume fraction] 30.3 % Low 39.0-50.0 [facility] Comment on above: Order Comment: No: D o not add to previous draw Performed By: #### 8 [id number] #### [facility] [address] [place] [address], [place] Hemoglobin (Bld) [Mass/Vol] 10.1 g/dL Low 13.0-17.0 [facility] Comment on above: Order Comment: No: D o not add to previous draw Performed By: #### 8 5499 #### [facility] [address] [place] [id number], [facility] MCH (RBC) [Entitic mass] 30.6 pg Normal 27.0-33.0 [facility] Comment on above: Order Comment: No: D o not add to previous draw Performed By: #### 8 5499 #### [facility] [address] [place] [address], [facility] MCHC (RBC) [Mass/Vol] 33.3 g/dL Normal 32.0-35.0 [facility] Comment on above: Order Comment: No: D o not add to previous draw Performed By: #### 8 [id number] #### [facility] [address] [place] [id number], [facility] MCV (RBC) [Entitic vol] 91.8 fL Normal 82.0-98.0 [facility] Comment on above: Order Comment: No: D o not add to previous draw Performed By: #### 8 5499 #### [facility] [address] [place] [id number], [facility] Nucleated RBC/100 WBC (Bld) [Ratio] 0 % Normal 0-0 [facility] Comment on above: Order Comment: No: D o not add to previous draw Performed By: #### 8 [id number] #### [facility] [address] [place] [id number], [facility] PLAT CNT 152 10*3/uL Normal 150-400 [facility] Comment on above: Order Comment: No: D o not add to previous draw Performed By: #### 8 5499 #### [facility] [address] [place] [id number], [facility] RBC (Bld) [#/Vol] 3.30 10*6/uL Low 4.20-5.70 [facility] Comment on above: Order Comment: No: D o not add to previous draw Performed By: #### 8 [id number] #### [facility] [address] WBC (Bld) [#/Vol] 10.66 10*3/uL High 4.00-10.60 [facility] Comment on above: Order Comment: No: D o not add to previous draw Performed By: #### 8 [id number] #### [facility] [address] LACTATE BLOODon 07-13-2021 Lactate [Moles/Vol] 1.0 mmol/L Normal .5-2.2 [facility] Comment on above: Order Comment: Pneum othorax Performed By: #### 1 0054 ####[facility] MAGNESIUM BLOODon 07-13-2021 Magnesium [Mass/Vol] 2.2 mg/dL Normal 1.9-2.7 [facility] Comment on above: Order Comment: No: D o not add to previous draw Performed By: #### 5 0608 #### [facility] [address] Operative Reporton 1 Operative Report MR#: [id number] I [facility] Pt. Name: Israel Devine Room #: [id number] Discharge Date: Birthdate: 1950 OPERATIVE REPORT DATE [...] device. 4. Independent interpretation of transesophageal echocardiogram. [employer] SUPERVISOR: Mason. ANESTHESIA: General with endotracheal intubation. ANESTHESIOLOGIST: [...] by: Singh Dotson MD 07/13/2021 04:30 P Signh Dotson MD Date Dict: 07/12/2021/02:13 P/Singh Dotson MD Date Trans: 07/12/2021 11:51 P/tangela [id number] cc: Deb Klein M.D. [address] [phone] Normal [facility] PHOSPHORUS BLOODon Phosphate [Mass/Vol] 3.0 mg/dL Normal 2.5-5.0 [facility] Comment on above: Order Comment: No: D o not add to previous draw Performed By: #### 5 0608 #### [facility] [address] POC GLUCOSE LABon 07-13-2021 Glucose [Mass/Vol] 146 mg/dL High 70-100 [facility] Comment on above: Performed By: #### 5 0608 #### [facility] [address] [place] [address], [place] Glucose [Mass/Vol] 132 mg/dL High 70-100 [facility] Comment on above: Performed By: #### 8 5499 #### [facility] [address] [place] [address], [place] Glucose [Mass/Vol] 88 mg/dL Normal 70-100 [facility] Comment on above: Performed By: #### 5 0608 #### [facility] [address] [place] [address], [place] Glucose [Mass/Vol] 96 mg/dL Normal 70-100 [facility] Comment on above: Performed By: #### 5 0608 #### [facility] [address] [place] [address], [place] Glucose [Mass/Vol] 125 mg/dL High 70-100 [facility] Comment on above: Performed By: #### 8 5499 #### [facility] [address] [place] [address], [place] Glucose [Mass/Vol] 121 mg/dL High 70-100 [facility] Comment on above: Performed By: #### 3 1595 #### [facility] [address] [place] [address], [place] Glucose [Mass/Vol] 133 mg/dL High 70-100 [facility] Comment on above: Performed By: #### 5 0608 #### [facility] [address] [place] [address], [place] Glucose [Mass/Vol] 98 mg/dL Normal 70-100 [facility] Comment on above: Performed By: #### 8 5499 #### [facility] [address] [place] [address], [place] Glucose [Mass/Vol] 90 mg/dL Normal 70-100 [facility] Comment on above: Performed By: #### 5 0608 #### [address] [address], [facility] PORTABLE CHEST 1 VIEWon 06-28 PORTABLE CHEST 1 VIEW [facility] Department of Radiology [address] [place] [phone] Patient Name: ISRAEL DEVINE : 1950 Sex: M Age: Race: White Pt. Location: [place] [address] Patient Status: I Ordered Date: 07/13/2021 7:00:00 [...] base. Electronically signed: Gretta Perkins. Transcribed by: [email or web address], User Resident: Electronically Signed by: GRETTA PERKINS @ 07/13/2021 07:44 AM Normal [facility] Comment on above: Order Comment: The A ptima SARS-CoV-2 assay is a nucleic acid amplification test intended for the qualitative detection of RNA from SARS-CoV-2 isolated and purified from nasopharyngeal ([employer]ANDAR[employer] ASSOCIATE),oropharyngeal (OP), nasal swab, sputum, and bronchoalveolar lavage (BAL) specimens from patients with signs and symptoms of infection who are suspected of COVID-19. Results are for the identification of SARS-CoV-2 RNA. The SARS-CoV-2 RNA is generally detectable during the acute phase of infection. The Aptima SARS-CoV-2 Assay on the DCITS and DCITS Fusion system is intended for use by laboratory personnel specifically instructed and trained in the operation of the [place] and [place] Fusion system. The Aptima SARS-CoV-2 assay is [...] [Relative time] 1.28 {INR} High 0.91-1.16 [facility] Comment on above: Order Comment: No: D [...] 1995;[id number]. Performed By: #### 5 0608 #### [facility] [address] [place] [address], [facility] PT Coag (PPP) [Time] 16.0 s High 12.3-14.8 [facility] Comment on above: Order Comment: No: D o not add to previous draw Result Comment: ALL RESULTS MUST BE INTERPRETED WITH RESPECT TO BLOOD DRAWING ARTIFACT OR DILUTION ERROR OF ANTICOAGULANT AT THE TIME OF SAMPLING. Performed By: #### 5 0608 #### [facility] [address] [place] [address], [facility] ACTIVATED CLOTTING TIMEon ACTIVATED CLOTTING TIME 126 sec Normal 82-152 [facility] Comment on above: Performed By: #### 3 1792 #### [facility] [address] [place] [address], [place] ACTIVATED CLOTTING TIME 120 sec Normal 82-152 [facility] Comment on above: Performed By: #### 3 1595 #### [facility] [address] [place] [address], [place] ACTIVATED CLOTTING TIME 603 sec High 82-152 [facility] Comment on above: Performed By: #### 3 1595 #### [facility] [address] [place] [address], [place] ACTIVATED CLOTTING TIME 603 sec High 82-152 [facility] Comment on above: Performed By: #### 3 1595 #### [facility] [address] [place] [address], [place] ACTIVATED CLOTTING TIME 464 sec High 82-152 [facility] Comment on above: Performed By: #### 8 [id number] #### [facility] [address] [place] [address], [facility] ACTIVATED CLOTTING TIME 664 sec High 82-152 [facility] Comment on above: Performed By: #### 8 [id number] #### [facility] [address] [place] [address], [facility] ACTIVATED CLOTTING TIME 609 sec High 82-152 [facility] Comment on above: Performed By: #### 8 [id number] #### [facility] [address] [place] [address], [facility] ACTIVATED CLOTTING TIME 144 sec Normal 82-152 [facility] Comment on above: Performed By: #### 8 [id number] #### [facility] [address] [facility] [place] [address], [facility] APTTon 07-12-2021 aPTT Coag (Bld) [Time] 47.7 s High 25.0-35.0 [facility] Comment on above: Order Comment: No: D [...] PURPOSE. Performed By: #### 5 0608 #### [facility] [address] [place] [address], [facility] aPTT Coag (Bld) [Time] 35.9 s High 25.0-35.0 [facility] Comment on above: Result Comment: ALL RESULTS [...] PURPOSE. Performed By: #### 5 0608 #### [facility] [address] [place] [address], [place] ARTERIAL BLOOD GAS WITH ICAo n 07-12-2021 BASE EXCESS -3 mmol/L Low -2-3 [facility] Comment on above: Performed By: #### 3 0738 #### [facility] [address] [place] [address], [place] HCO3 (Bld) [Moles/Vol] 23 mmol/L Normal 21-28 [facility] Comment on above: Performed By: #### 3 0738 #### [facility] [address] [place] [address], [place] MIN VOLUME 14.0 Normal [facility] Comment on above: Performed By: #### 3 0738 #### [facility] [address] [place] [address], [place] MODALITY SIMV Normal [facility] Comment on above: Performed By: #### 3 0738 #### [facility] [address] [place] [address], [place] Oxygen (Bld) [Partial pressure] 120 mm[Hg] Critically high 83-108 [facility] Comment on above: Performed By: #### 3 0738 #### [facility] [address] [place] [address], [place] Oxygen saturation in Blood 98.1 % High 94.0-97.0 [facility] Comment on above: Performed By: #### 3 0738 #### [facility] [address] [place] [address], [place] PCO2 44 mmHg Normal 35-45 [facility] Comment on above: Performed By: #### 3 0738 #### [facility] [address] [place] [address], [place] PF RATIO 240 mmHg Normal [facility] Comment on above: Performed By: #### 3 0738 #### [facility] [address] [place] [address], [place] pH (Bld) 7.33 [pH] Low 7.35-7.45 [facility] Comment on above: Performed By: #### 3 0738 #### [facility] [address] [place] [address], [facility] Respiratory rate 18 /min Normal [facility] Comment on above: Performed By: #### 3 0738 #### [facility] [address] TIDAL VOLUME (VT) CC 600 Normal [facility] Comment on above: Performed By: #### 3 0738 #### [facility] [address] BASE EXCESS -6 mmol/L Low -2-3 [facility] Comment on above: Performed By: #### 3 0738 #### [facility] [address] DELIVERY SYSTEMS MV Normal [facility] Comment on above: Performed By: #### 3 0738 #### [facility] [address] [place] [address], [facility] FIO2 50 % Normal [facility] Comment on above: Performed By: #### 3 0738 #### [facility] [address] HCO3 (Bld) [Moles/Vol] 21 mmol/L Normal 21-28 [facility] Comment on above: Performed By: #### 3 0738 #### [facility] [address] [place] [address], [facility] IONIZED CALCIUM 1.14 mmol/L Normal 1.13-1.32 [facility] Comment on above: Performed By: #### 3 0738 #### [facility] [address] [place] [address], [facility] MIN VOLUME 6.4 Normal [facility] Comment on above: Performed By: #### 3 0738 #### [facility] [address] [place] [address], [place] MODALITY AC Normal [facility] Comment on above: Performed By: #### 3 0738 #### [facility] [address] [place] [address], [place] Oxygen (Bld) [Partial pressure] 90 mm[Hg] Normal 83-108 [facility] Comment on above: Performed By: #### 3 0738 #### [facility] [address] [place] [address], [place] Oxygen saturation in Blood 95.8 % Normal 94.0-97.0 [facility] Comment on above: Performed By: #### 3 0738 #### [facility] [address] [place] [address], [place] PCO2 46 mmHg High 35-45 [facility] Comment on above: Performed By: #### 3 0738 #### [facility] [address] [place] [address], [place] PEEP 8.0 CMH20 Normal [facility] Comment on above: Performed By: #### 3 0738 #### [facility] [address] [place] [address], [place] PF RATIO 180 mmHg Normal [facility] Comment on above: Performed By: #### 3 0738 #### [facility] [address] [place] [address], [place] pH (Bld) 7.27 [pH] Low 7.35-7.45 [facility] Comment on above: Performed By: #### 3 0738 #### [facility] [address] [place] [address], [place] PRESSURE SUPPORT 10 Normal [facility] Comment on above: Performed By: #### 3 0738 #### [facility] [address] [place] [address], [facility] Respiratory rate 14 /min Normal [facility] Comment on above: Performed By: #### 3 0738 #### [facility] [address] [place] [address], [facility] TIDAL VOLUME (VT) CC 450 Normal [facility] Comment on above: Performed By: #### 3 0738 #### [facility] [address] [place] [address], [facility] IONIZED CALCIUM 1.06 mmol/L Low 1.12-1.32 [facility] Comment on above: Performed By: #### 3 0738 #### [facility] [address] [place] [address], [facility] Performed By: #### 8 [id number] #### [facility] [address] BASIC METABOLIC PANELon 12 Calcium [Mass/Vol] 8.8 mg/dL Normal 8.6-10.3 [facility] Comment on above: Order Comment: No: D o not add to previous draw Performed By: #### 3 0965 #### [facility] [address] [place] [id number], [facility] Chloride [Moles/Vol] 110 mmol/L High 98-107 [facility] Comment on above: Order Comment: No: D o not add to previous draw Performed By: #### 3 0965 #### [facility] [address] [place] [address], [facility] CO2 [Moles/Vol] 24 mmol/L Normal 21-31 [facility] Comment on above: Order Comment: No: D o not add to previous draw Performed By: #### 3 0965 #### [facility] [address] [place] [address], [facility] Creatinine [Mass/Vol] 0.94 mg/dL Normal 0.70-1.30 [facility] Comment on above: Order Comment: No: D o not add to previous draw Performed By: #### 3 0965 #### [facility] [address] [place] [address], [place] GFR/1.73 sq M.predicted among blacks MDRD (S/P/Bld) [Vol rate/Area] mL/min/{1.73_m2} Normal >60 [facility] Comment on above: Order Comment: No: D o not add to previous draw Result Comment: Calc ulation may not be valid for patients over 70 years Performed By: #### 3 0965 #### [facility] [address] [place] [address], [place] GFR/1.73 sq M.predicted among non-blacks MDRD (S/P/Bld) [Vol rate/Area] mL/min/{1.73_m2} Normal >60 [facility] Comment on above: Order Comment: No: D o not add to previous draw Result Comment: Calc ulation may not be valid for patients over 70 years Performed By: #### 3 0965 #### [facility] [address] [place] [address], [place] Glucose [Mass/Vol] 132 mg/dL High 70-100 [facility] Comment on above: Order Comment: No: D o not add to previous draw Performed By: #### 3 0965 #### [facility] [address] [place] [address], [place] Potassium [Moles/Vol] 4.5 mmol/L Normal 3.5-5.1 [facility] Comment on above: Order Comment: No: D o not add to previous draw Performed By: #### 3 0965 #### [facility] [address] [place] [address], [place] Sodium [Moles/Vol] 141 mmol/L Normal 136-145 [facility] Comment on above: Order Comment: No: D o not add to previous draw Performed By: #### 3 0965 #### [facility] [address] [place] [address], [place] Urea nitrogen [Mass/Vol] 18 mg/dL Normal 7-25 [facility] Comment on above: Order Comment: No: D o not add to previous draw Performed By: #### 3 0965 #### [facility] [address] [place] [address], [place] Calcium [Mass/Vol] 7.7 mg/dL Low 8.6-10.3 [facility] Comment on above: Performed By: #### 3 0965 #### [facility] [address] [place] [address], [place] Chloride [Moles/Vol] 108 mmol/L High 98-107 [facility] Comment on above: Performed By: #### 3 0965 #### [facility] [address] [place] [address], [place] CO2 [Moles/Vol] 22 mmol/L Normal 21-31 [facility] Comment on above: Performed By: #### 3 0965 #### [facility] [address] [place] [address], [place] Creatinine [Mass/Vol] 0.90 mg/dL Normal 0.70-1.30 [facility] Comment on above: Performed By: #### 3 0965 #### [facility] [address] [place] [address], [place] Urea nitrogen [Mass/Vol] 20 mg/dL Normal 7-25 [facility] Comment on above: Performed By: #### 3 0965 #### [facility] [address] [place] [address], [place] Glucose [Mass/Vol] 159 mg/dL High 70-105 [facility] Comment on above: Performed By: #### 3 0965 #### [facility] [address] [place] [address], [place] Performed By: #### 3 8138 #### [facility] [address] [place] [address], [facility] Potassium [Moles/Vol] 3.3 mmol/L Low 3.5-4.9 [facility] Comment on above: Performed By: #### 3 0965 #### [facility] [address] [place] [address], [facility] Performed By: #### 8 5499 #### [facility] [address] [place] [address], [facility] Sodium [Moles/Vol] 140 mmol/L Normal 138-146 [facility] Comment on above: Performed By: #### 3 0965 #### [facility] [address] [place] [address], [facility] Performed By: #### 3 1792 #### [facility] [address] [place] [address], [facility] Performed By: #### 8 5499 #### [facility] [address] [place] [address], [facility] CBC COMPLETE BLOOD COUNTon 09-12-2020 Erythrocyte distribution width (RBC) [Ratio] 12.8 % Normal 11.5-15.0 [facility] Comment on above: Order Comment: No: D o not add to previous draw Performed By: #### 5 0608 #### [facility] [address] [place] [address], [facility] Hematocrit (Bld) [Volume fraction] 31.0 % Low 39.0-50.0 [facility] Comment on above: Order Comment: No: D o not add to previous draw Performed By: #### 5 0608 #### [facility] [address] [place] [id number], [facility] Hemoglobin (Bld) [Mass/Vol] 10.4 g/dL Low 13.0-17.0 [facility] Comment on above: Order Comment: No: D o not add to previous draw Performed By: #### 5 0608 #### [facility] [address] [place] [id number], [facility] MCH (RBC) [Entitic mass] 31.0 pg Normal 27.0-33.0 [facility] Comment on above: Order Comment: No: D o not add to previous draw Performed By: #### 5 0608 #### [facility] [address] [place] [id number], [facility] MCHC (RBC) [Mass/Vol] 33.5 g/dL Normal 32.0-35.0 [facility] Comment on above: Order Comment: No: D o not add to previous draw Performed By: #### 5 0608 #### [facility] [address] [place] [address], [facility] MCV (RBC) [Entitic vol] 92.3 fL Normal 82.0-98.0 [facility] Comment on above: Order Comment: No: D o not add to previous draw Performed By: #### 5 0608 #### [facility] [address] [place] [address], [facility] Nucleated RBC/100 WBC (Bld) [Ratio] 0 % Normal 0-0 [facility] Comment on above: Order Comment: No: D o not add to previous draw Performed By: #### 5 0608 #### [facility] [address] [facility] [address] Performed By: #### 8 [id number] #### [facility] [address] [place] [address], [facility] PLAT CNT 162 10*3/uL Normal 150-400 [facility] Comment on above: Order Comment: No: D o not add to previous draw Performed By: #### 5 0608 #### [facility] [address] [place] [id number], [facility] RBC (Bld) [#/Vol] 3.36 10*6/uL Low 4.20-5.70 [facility] Comment on above: Order Comment: No: D o not add to previous draw Performed By: #### 5 0608 #### [facility] [address] [place] [address], [facility] WBC (Bld) [#/Vol] 11.92 10*3/uL High 4.00-10.60 [facility] Comment on above: Order Comment: No: D o not add to previous draw Performed By: #### 5 0608 #### [facility] [address] [place] [address], [facility] Erythrocyte distribution width (RBC) [Ratio] 12.2 % Normal 11.5-15.0 [facility] Comment on above: Performed By: #### 8 [id number] #### [facility] [address] [place] [address], [facility] Hematocrit (Bld) [Volume fraction] 28.9 % Low 39.0-50.0 [facility] Comment on above: Performed By: #### 8 [id number] #### [facility] [address] [place] [address], [facility] Hemoglobin (Bld) [Mass/Vol] 9.4 g/dL Low 13.0-17.0 [facility] Comment on above: Performed By: #### 8 [id number] #### [facility] [address] [place] [address], [place] MCH (RBC) [Entitic mass] 30.6 pg Normal 27.0-33.0 [facility] Comment on above: Performed By: #### 8 [id number] #### [facility] [address] [place] [address], [place] MCHC (RBC) [Mass/Vol] 32.5 g/dL Normal 32.0-35.0 [facility] Comment on above: Performed By: #### 8 5499 #### [facility] [address] [place] [address], [place] MCV (RBC) [Entitic vol] 94.1 fL Normal 82.0-98.0 [facility] Comment on above: Performed By: #### 8 [id number] #### [facility] [address] [place] [address], [facility] PLAT CNT 129 10*3/uL Low 150-400 [facility] Comment on above: Performed By: #### 8 [id number] #### [facility] [address] [place] [address], [facility] RBC (Bld) [#/Vol] 3.07 10*6/uL Low 4.20-5.70 [facility] Comment on above: Performed By: #### 8 [id number] #### [facility] [address] [place] [address], [facility] WBC (Bld) [#/Vol] 12.08 10*3/uL High 4.00-10.60 [facility] Comment on above: Performed By: #### 8 [id number] #### [facility] [address] [place] [address], [facility] LACTATE BLOODon 07-12-2021 Lactate [Moles/Vol] 2.0 mmol/L Normal .5-2.2 [facility] Comment on above: Order Comment: Pneum othorax Performed By: #### 1 0054 ####[facility] [facility] [place] [address], [facility] Lactate [Moles/Vol] 1.9 mmol/L Normal .5-2.2 [facility] Comment on above: Performed By: #### 8 [id number] #### [facility] [address] [place] [address], [facility] MAGNESIUM BLOODon 07-12-2021 Magnesium [Mass/Vol] 2.3 mg/dL Normal 1.9-2.7 [facility] Comment on above: Order Comment: No: D o not add to previous draw Performed By: #### 3 0965 #### [facility] [address] [place] [address], [facility] Magnesium [Mass/Vol] 2.8 mg/dL High 1.9-2.7 [facility] Comment on above: Performed By: #### 3 0965 #### [facility] [address] [place] [address], [facility] PERFUSION BLOOD PANELon 06-28 BASE EXCESS -4.0 mmol/L Low -2.0-3.0 [facility] Comment on above: Performed By: #### 3 0738 #### [facility] [address] [place] [address], [facility] Hematocrit (Bld) [Volume fraction] 26 % Low 38-51 [facility] Comment on above: Performed By: #### 3 0738 #### [facility] [address] Hemoglobin (Bld) [Mass/Vol] 8.8 g/dL Low 12.0-17.0 [facility] Comment on above: Performed By: #### 3 0738 #### [facility] [address] IONIZED CALCIUM 1.16 mmol/L Normal 1.12-1.32 [facility] Comment on above: Performed By: #### 3 0738 #### [facility] [address] [place] [address], [facility] Oxygen (Bld) [Partial pressure] 89.0 mm[Hg] Normal 80.0-105.0 [facility] Comment on above: Performed By: #### 3 0738 #### [facility] [address] [place] [address], [facility] PCO2 40.5 mmHg Normal 35.0-45.0 [facility] Comment on above: Performed By: #### 3 0738 #### [facility] [address] [place] [address], [facility] pH (Bld) 7.34 [pH] Low 7.35-7.45 [facility] Comment on above: Performed By: #### 3 0738 #### [facility] [address] [place] [address], [place] Potassium [Moles/Vol] 3.2 mmol/L Low 3.5-4.9 [facility] Comment on above: Performed By: #### 3 0738 #### [facility] [address] [place] [address], [facility] Sodium [Moles/Vol] 142 mmol/L Normal 138-146 [facility] Comment on above: Performed By: #### 3 0738 #### [facility] [address] [place] [address], [facility] BASE EXCESS -4.0 mmol/L Low -2.0-3.0 [facility] Comment on above: Performed By: #### 8 [id number] #### [facility] [address] [place] [address], [facility] Glucose [Mass/Vol] 157 mg/dL High 70-105 [facility] Comment on above: Performed By: #### 8 [id number] #### [facility] [address] [place] [address], [facility] Hematocrit (Bld) [Volume fraction] 26 % Low 38-51 [facility] Comment on above: Performed By: #### 8 [id number] #### [facility] [address] [place] [address], [place] Hemoglobin (Bld) [Mass/Vol] 8.8 g/dL Low 12.0-17.0 [facility] Comment on above: Performed By: #### 8 [id number] #### [facility] [address] [place] [address], [place] IONIZED CALCIUM 1.21 mmol/L Normal 1.12-1.32 [facility] Comment on above: Performed By: #### 8 [id number] #### [facility] [address] [place] [address], [facility] Oxygen (Bld) [Partial pressure] 62.0 mm[Hg] Low 80.0-105.0 [facility] Comment on above: Performed By: #### 8 [id number] #### [facility] [address] [place] [address], [facility] PCO2 40.8 mmHg Normal 35.0-45.0 [facility] Comment on above: Performed By: #### 8 [id number] #### [facility] [address] [place] [address], [facility] pH (Bld) 7.34 [pH] Low 7.35-7.45 [facility] Comment on above: Performed By: #### 8 [id number] #### [facility] [address] [place] [address], [facility] Sodium [Moles/Vol] 142 mmol/L Normal 138-146 [facility] Comment on above: Performed By: #### 8 [id number] #### [facility] [address] [facility] [place] [address], [facility] BASE EXCESS 2.0 mmol/L Normal -2.0-3.0 [facility] Comment on above: Performed By: #### 3 1791 #### [facility] [address] [place] [address], [facility] Glucose [Mass/Vol] 152 mg/dL High 70-105 [facility] Comment on above: Performed By: #### 3 1791 #### [facility] [address] [place] [address], [facility] Hematocrit (Bld) [Volume fraction] 28 % Low 38-51 [facility] Comment on above: Performed By: #### 3 1791 #### [facility] [address] [place] [address], [facility] Hemoglobin (Bld) [Mass/Vol] 9.5 g/dL Low 12.0-17.0 [facility] Comment on above: Performed By: #### 3 1791 #### [facility] [address] [place] [address], [place] IONIZED CALCIUM 1.03 mmol/L Low 1.12-1.32 [facility] Comment on above: Performed By: #### 3 1791 #### [facility] [address] [place] [address], [facility] Oxygen (Bld) [Partial pressure] 509.0 mm[Hg] High 80.0-105.0 [facility] Comment on above: Performed By: #### 3 1791 #### [facility] [address] [place] [address], [facility] PCO2 41.3 mmHg Normal 35.0-45.0 [facility] Comment on above: Performed By: #### 3 1791 #### [facility] [address] [place] [address], [place] pH (Bld) 7.42 [pH] Normal 7.35-7.45 [facility] Comment on above: Performed By: #### 3 1791 #### [facility] [address] [place] [address], [place] Potassium [Moles/Vol] 4.2 mmol/L Normal 3.5-4.9 [facility] Comment on above: Performed By: #### 3 1791 #### [facility] [address] [place] [address], [place] Sodium [Moles/Vol] 139 mmol/L Normal 138-146 [facility] Comment on above: Performed By: #### 3 1791 #### [facility] [address] [place] [address], [place] BASE EXCESS 3.0 mmol/L Normal -2.0-3.0 [facility] Comment on above: Performed By: #### 8 [id number] #### [facility] [address] [place] [address], [facility] Glucose [Mass/Vol] 165 mg/dL High 70-105 [facility] Comment on above: Performed By: #### 8 [id number] #### [facility] [address] [place] [address], [facility] Hematocrit (Bld) [Volume fraction] 29 % Low 38-51 [facility] Comment on above: Performed By: #### 8 [id number] #### [facility] [address] [facility] [place] [address], [facility] Hemoglobin (Bld) [Mass/Vol] 9.9 g/dL Low 12.0-17.0 [facility] Comment on above: Performed By: #### 8 [id number] #### [facility] [address] [facility] [address] Oxygen (Bld) [Partial pressure] 452.0 mm[Hg] High 80.0-105.0 [facility] Comment on above: Performed By: #### 8 [id number] #### [facility] [address] [facility] [place] [address], [facility] PCO2 45.7 mmHg High 35.0-45.0 [facility] Comment on above: Performed By: #### 8 [id number] #### [facility] [address] [facility] [place] [address], [facility] pH (Bld) 7.39 [pH] Normal 7.35-7.45 [facility] Comment on above: Performed By: #### 8 [id number] #### [facility] [address] [place] [address], [facility] Potassium [Moles/Vol] 4.3 mmol/L Normal 3.5-4.9 [facility] Comment on above: Performed By: #### 8 [id number] #### [facility] [address] [place] [address], [facility] Sodium [Moles/Vol] 139 mmol/L Normal 138-146 [facility] Comment on above: Performed By: #### 8 [id number] #### [facility] [address] [place] [address], [place] BASE EXCESS 2.0 mmol/L Normal -2.0-3.0 [facility] Comment on above: Performed By: #### 8 [id number] #### [facility] [address] [place] [address], [place] Glucose [Mass/Vol] 225 mg/dL High 70-105 [facility] Comment on above: Performed By: #### 8 [id number] #### [facility] [address] [place] [address], [facility] Hematocrit (Bld) [Volume fraction] 25 % Low 38-51 [facility] Comment on above: Performed By: #### 8 [id number] #### [facility] [address] [place] [address], [place] Hemoglobin (Bld) [Mass/Vol] 8.5 g/dL Low 12.0-17.0 [facility] Comment on above: Performed By: #### 8 [id number] #### [facility] [address] [place] [address], [facility] IONIZED CALCIUM 1.05 mmol/L Low 1.12-1.32 [facility] Comment on above: Performed By: #### 8 [id number] #### [facility] [address] [place] [address], [place] Oxygen (Bld) [Partial pressure] 446.0 mm[Hg] High 80.0-105.0 [facility] Comment on above: Performed By: #### 8 [id number] #### [facility] [address] [place] [address], [place] PCO2 49.0 mmHg High 35.0-45.0 [facility] Comment on above: Performed By: #### 8 [id number] #### [facility] [address] [place] [address], [facility] pH (Bld) 7.36 [pH] Normal 7.35-7.45 [facility] Comment on above: Performed By: #### 8 [id number] #### [facility] [address] [place] [address], [facility] Potassium [Moles/Vol] 4.3 mmol/L Normal 3.5-4.9 [facility] Comment on above: Performed By: #### [id number] #### [facility] [address] [place] [address], [facility] Sodium [Moles/Vol] 138 mmol/L Normal 138-146 [facility] Comment on above: Performed By: #### [id number] #### [facility] [address] [place] [address], [facility] BASE EXCESS 3.0 mmol/L Normal -2.0-3.0 [facility] Comment on above: Performed By: #### [id number] #### [facility] [address] [place] [address], [facility] Glucose [Mass/Vol] 97 mg/dL Normal 70-105 [facility] Comment on above: Performed By: #### [id number] #### [facility] [facility] [address] [place] [address], [facility] Hematocrit (Bld) [Volume fraction] 28 % Low 38-51 [facility] Comment on above: Performed By: #### 8 [id number] #### [facility] [address] [place] [address], [facility] Hemoglobin (Bld) [Mass/Vol] 9.5 g/dL Low 12.0-17.0 [facility] Comment on above: Performed By: #### 8 [id number] #### [facility] [address] [place] [address], [facility] IONIZED CALCIUM 0.97 mmol/L Low 1.12-1.32 [facility] Comment on above: Performed By: #### 8 [id number] #### [facility] [address] [place] [address], [facility] Oxygen (Bld) [Partial pressure] 501.0 mm[Hg] High 80.0-105.0 [facility] Comment on above: Performed By: #### 8 [id number] #### [facility] [address] [place] [address], [facility] PCO2 38.5 mmHg Normal 35.0-45.0 [facility] Comment on above: Performed By: #### 8 [id number] #### [facility] [address] [place] [address], [facility] pH (Bld) 7.45 [pH] Normal 7.35-7.45 [facility] Comment on above: Performed By: #### 8 [id number] #### [facility] [address] [place] [address], [facility] Potassium [Moles/Vol] 3.8 mmol/L Normal 3.5-4.9 [facility] Comment on above: Performed By: #### 8 [id number] #### [facility] [address] [place] [address], [place] Sodium [Moles/Vol] 139 mmol/L Normal 138-146 [facility] Comment on above: Performed By: #### 8 [id number] #### [facility] [address] [place] [address], [place] BASE EXCESS 0.0 mmol/L Normal -2.0-3.0 [facility] Comment on above: Performed By: #### 8 [id number] #### [facility] [address] [place] [address], [place] Glucose [Mass/Vol] 97 mg/dL Normal 70-105 [facility] Comment on above: Performed By: #### 8 [id number] #### [facility] [address] [place] [address], [facility] Hematocrit (Bld) [Volume fraction] 29 % Low 38-51 [facility] Comment on above: Performed By: #### 8 [id number] #### [facility] [address] [place] [address], [facility] Hemoglobin (Bld) [Mass/Vol] 9.9 g/dL Low 12.0-17.0 [facility] Comment on above: Performed By: #### 8 [id number] #### [facility] 3000 [facility]. [address] IONIZED CALCIUM 1.03 mmol/L Low 1.12-1.32 [facility] Comment on above: Performed By: #### 8 [id number] #### [facility] [address] Oxygen (Bld) [Partial pressure] 46.0 mm[Hg] Normal [facility] Comment on above: Performed By: #### 8 [id number] #### [facility] [address] PCO2 40.6 mmHg Low 41.0-51.0 [facility] Comment on above: Performed By: #### 8 [id number] #### [facility] [address] pH (Bld) 7.39 [pH] Normal 7.31-7.41 [facility] Comment on above: Performed By: #### 8 [id number] #### [facility] [address] [place] [address], [facility] Potassium [Moles/Vol] 3.8 mmol/L Normal 3.5-4.9 [facility] Comment on above: Performed By: #### 8 [id number] #### [facility] [address] [place] [address], [facility] Sodium [Moles/Vol] 141 mmol/L Normal 138-146 [facility] Comment on above: Performed By: #### 8 [id number] #### [facility] [address] [place] [address], [place] BASE EXCESS -1.0 mmol/L Normal -2.0-3.0 [facility] Comment on above: Performed By: #### 3 1791 #### [facility] [address] [place] [address], [place] Glucose [Mass/Vol] 107 mg/dL High 70-105 [facility] Comment on above: Performed By: #### 3 1791 #### [facility] [address] [place] [address], [place] Hematocrit (Bld) [Volume fraction] 33 % Low 38-51 [facility] Comment on above: Performed By: #### 3 1791 #### [facility] [address] [place] [address], [place] Hemoglobin (Bld) [Mass/Vol] 11.2 g/dL Low 12.0-17.0 [facility] Comment on above: Performed By: #### 3 1791 #### [facility] [address] [place] [address], [place] IONIZED CALCIUM 1.16 mmol/L Normal 1.12-1.32 [facility] Comment on above: Performed By: #### 3 1791 #### [facility] [address] [place] [address], [place] Oxygen (Bld) [Partial pressure] 293.0 mm[Hg] High 80.0-105.0 [facility] Comment on above: Performed By: #### 3 179 #### [facility] [address] [place] [address], [place] PCO2 41.5 mmHg Normal 35.0-45.0 [facility] Comment on above: Performed By: #### 3 1792 #### [facility] [address] [place] [address], [facility] pH (Bld) 7.38 [pH] Normal 7.35-7.45 [facility] Comment on above: Performed By: #### 3 1792 #### [facility] [address] [place] [address], [facility] Potassium [Moles/Vol] 3.8 mmol/L Normal 3.5-4.9 [facility] Comment on above: Performed By: #### 3 179 #### [facility] [address] [place] [address], [facility] BASE EXCESS 0.0 mmol/L Normal -2.0-3.0 [facility] Comment on above: Performed By: #### 8 [id number] #### [facility] [address] Glucose [Mass/Vol] 104 mg/dL Normal 70-105 [facility] Comment on above: Performed By: #### 8 [id number] #### [facility] [address] [place] [address], [facility] Hematocrit (Bld) [Volume fraction] 35 % Low 38-51 [facility] Comment on above: Performed By: #### 8 [id number] #### [facility] [address] [place] [address], [facility] Hemoglobin (Bld) [Mass/Vol] 11.9 g/dL Low 12.0-17.0 [facility] Comment on above: Performed By: #### 8 [id number] #### [facility] [address] [place] [id number], [facility] IONIZED CALCIUM 1.20 mmol/L Normal 1.12-1.32 [facility] Comment on above: Performed By: #### 8 [id number] #### [facility] [address] [place] [address], [facility] Oxygen (Bld) [Partial pressure] 379.0 mm[Hg] High 80.0-105.0 [facility] Comment on above: Performed By: #### 8 [id number] #### [facility] [address] [place] [address], [place] PCO2 40.8 mmHg Normal 35.0-45.0 [facility] Comment on above: Performed By: #### 8 [id number] #### [facility] [address] [place] [address], [place] pH (Bld) 7.40 [pH] Normal 7.35-7.45 [facility] Comment on above: Performed By: #### 8 [id number] #### [facility] [address] [place] [address], [facility] Potassium [Moles/Vol] 3.9 mmol/L Normal 3.5-4.9 [facility] Comment on above: Performed By: #### 8 [id number] #### [facility] [address] [place] [address], [facility] PHOSPHORUS BLOODon Phosphate [Mass/Vol] 2.7 mg/dL Normal 2.5-5.0 [facility] Comment on above: Order Comment: No: D o not add to previous draw Performed By: #### 3 0965 #### [facility] [address] [place] [address], [place] POC GLUCOSE LABon 07-12-2021 Glucose [Mass/Vol] 115 mg/dL High 70-100 [facility] Comment on above: Performed By: #### 3 1595 #### [facility] [address] [place] [address], [place] Glucose [Mass/Vol] 132 mg/dL High 70-100 [facility] Comment on above: Performed By: #### 3 1595 #### [facility] [address] [facility] [place] [address], [place] Glucose [Mass/Vol] 109 mg/dL High 70-100 [facility] Comment on above: Performed By: #### 5 0608 #### [facility] [address] [facility] [place] [address], [place] Glucose [Mass/Vol] 150 mg/dL High 70-100 [facility] Comment on above: Performed By: #### 8 [id number] #### [facility] [address] [facility] [place] [address], [place] Glucose [Mass/Vol] 162 mg/dL High 70-100 [facility] Comment on above: Performed By: #### 5 0608 #### [facility] [address] [facility] [place] [address], [place] Glucose [Mass/Vol] 97 mg/dL Normal 70-100 [facility] Comment on above: Performed By: #### 3 1595 #### [facility] [address] [facility] [place] [address], [facility] PORTABLE CHEST 1 [facility] PORTABLE CHEST 1 VIEW [facility] Department of Radiology [address] [place], [place] [id number] Patient Name: ISRAEL DEVINE : 1950 Sex: M Age: Race: White Pt. Location: [place] [address] Patient Status: I Ordered Date: 07/12/2021 1:00:00 [...] atelectasis Electronically signed: Amauri Ramirez. Transcribed by: [email or web address], User Resident: Electronically Signed by: AMAURI RAMIREZ @ 07/12/2021 01:53 PM Normal [facility] Comment on above: Order Comment: The A ptima SARS-CoV-2 assay is a nucleic acid amplification test intended for the qualitative detection of RNA from SARS-CoV-2 isolated and purified from nasopharyngeal (STORE STANDARDS ASSOCIATE),oropharyngeal (OP), nasal swab, sputum, and bronchoalveolar lavage (BAL) specimens from patients with signs and symptoms of infection who are suspected of COVID-19. Results are for the identification of SARS-CoV-2 RNA. The SARS-CoV-2 RNA is generally detectable during the acute phase of infection. The Aptima SARS-CoV-2 Assay on the DCITS and [place] Fusion system is intended for use by laboratory personnel specifically instructed and trained in the operation of the [place] and [employer] Fusion system. The Aptima SARS-CoV-2 assay is [...] [Relative time] 1.27 {INR} High 0.91-1.16 [facility] Comment on above: Order Comment: No: D [...] 1995;108:[id number]. Performed By: #### 5 0608 #### [facility] [address] PT Coag (PPP) [Time] 15.9 s High 12.3-14.8 [facility] Comment on above: Order Comment: No: D o not add to previous draw Result Comment: ALL RESULTS MUST BE INTERPRETED WITH RESPECT TO BLOOD DRAWING ARTIFACT OR DILUTION ERROR OF ANTICOAGULANT AT THE TIME OF SAMPLING. Performed By: #### 5 0608 #### [address] INR Coag (PPP) [Relative time] 1.63 {INR} High 0.91-1.16 [facility] Comment on above: Result Comment: ACCC P [...] 1995;108:[id number]. Performed By: #### 5 0608 #### [address] PT Coag (PPP) [Time] 19.2 s High 12.3-14.8 [facility] Comment on above: Result Comment: ALL RESULTS MUST BE INTERPRETED WITH RESPECT TO BLOOD DRAWING ARTIFACT OR DILUTION ERROR OF ANTICOAGULANT AT THE TIME OF SAMPLING. Performed By: #### 5 0608 #### [address] CHEST AND LATERALon 07-10-20 21 CHEST AND LATERAL [facility] Department of Radiology [address] [place] [id number] Patient Name: ISRAEL DEVINE : 1950 Sex: M Age: Race: White Pt. Location: Patient Status: O Ordered Date: 07/10/2021 1:55:00 PM Completed Date: 07/10/2021 01:58 PM Requesting Provider: SINGH DOTSON Attending Provider: SINGH DOTSON Report Copy To: DEB KLEIN Signs & Symptoms: I35.1 Nonrheumatic aortic (valve) insufficiency I10 History: [place] Comments: evaluate Exam: CHEST AND LATERAL CHEST [...] atelectasis. Electronically signed: Ludwig Shah. Transcribed by: [email or web address], User Resident: Electronically Signed by: LUDWIG SHAH @ 07/10/2021 05:29 PM Normal [facility] Comment on above: Order Comment: The A ptima SARS-CoV-2 assay is a nucleic acid amplification test intended for the qualitative detection of RNA from SARS-CoV-2 isolated and purified from nasopharyngeal (STORE STANDARDS ASSOCIATE),oropharyngeal (OP), nasal swab, sputum, and bronchoalveolar lavage (BAL) specimens from patients with signs and symptoms of infection who are suspected of COVID-19. Results are for the identification of SARS-CoV-2 RNA. The SARS-CoV-2 RNA is generally detectable during the acute phase of infection. The Aptima SARS-CoV-2 Assay on the [place] and [place] Fusion system is intended for use by laboratory personnel specifically instructed and trained in the operation of the [place] and [place] Fusion system. The Aptima SARS-CoV-2 assay is [...] patient history, and epidemiological information. Pulmonary Functionon 021 Pulmonary Function MR #: [id number] [facility] PT. Name: Israel Devine Date: 05/29/2021 Date [...] Care and Sleep Medicine Date Dict: 06/27/2021/01:07 Carlos/Maycol Gomez MD Date Trans: 06/27/2021 01:07 P/ [id number] cc: Deb Klein M.D. [address] [place] [address] Normal [facility] *MRSA/MSSA DNA NASALon 05-29 *MRSA/MSSA DNA NASAL Clinical Report: (D) Specimen: NASAL SWAB Collected: 05/29/2021 12:56 Status: Final Last Updated: 05/29/2021 17:37 MSSA DNA (Final) Negative MRSA DNA (Final) Negative Normal [facility] Comment on above: Performed By: #### 3 1595 #### [facility] [address] *SARS-CoV-2 COVID-19on 05-29 SARS-CoV-2 (COVID-19) RNA RAZIA+probe Ql (Unsp spec) Not detected Normal Not Detected [facility] Comment on above: Order Comment: The A ptima SARS-CoV-2 assay is a nucleic acid amplification test intended for the qualitative detection of RNA from SARS-CoV-2 isolated and purified from nasopharyngeal (STORE STANDARDS ASSOCIATE),oropharyngeal (OP), nasal swab, sputum, and bronchoalveolar lavage (BAL) specimens from patients with signs and symptoms of infection who are suspected of COVID-19. Results are for the identification of SARS-CoV-2 RNA. The SARS-CoV-2 RNA is generally detectable during the acute phase of infection. The Aptima SARS-CoV-2 Assay on the DCITS and [place] Fusion system is intended for use by laboratory personnel specifically instructed and trained in the operation of the [place] and [place] Fusion system. The Aptima SARS-CoV-2 assay is [...] information. Performed By: #### 3 1792 #### [facility] [address] [place] [address], [facility] APTTon 05-29-2021 aPTT Coag (Bld) [Time] 32.6 s Normal 25.0-35.0 [facility] Comment on above: Result Comment: ALL RESULTS [...] PURPOSE. Performed By: #### 8 [id number] #### [facility] [address] [facility] [place] [address], [facility] ARTERIAL BLOOD GAS W/COOXon 05-29-2021 BASE EXCESS -1 mmol/L Normal -2-3 [facility] Comment on above: Performed By: #### 3 0738 #### [facility] [address] [facility] [address] COHB 1.3 % Normal 0.0-1.5 [facility] Comment on above: Performed By: #### 3 0738 #### [facility] [address] [facility] [place] [address], [facility] DELIVERY SYSTEMS ROOM AIR Normal [facility] Comment on above: Performed By: #### 3 0738 #### [facility] [address] [facility] [place] [address], [facility] FIO2 0 % Normal [facility] Comment on above: Performed By: #### 3 0738 #### [facility] [address] [place] [address], [facility] HCO3 (Bld) [Moles/Vol] 23 mmol/L Normal 21-28 [facility] Comment on above: Performed By: #### 3 0738 #### [facility] [address] METHB 0.7 % Normal 0.0-1.5 [facility] Comment on above: Performed By: #### 3 0738 #### [facility] [address] Oxygen (Bld) [Partial pressure] 87 mm[Hg] Normal 83-108 [facility] Comment on above: Performed By: #### 3 0738 #### [facility] [address] Oxygen saturation in Blood 96.3 % Normal 94.0-97.0 [facility] Comment on above: Performed By: #### 3 0738 #### [facility] [address] PCO2 35 mmHg Normal 35-45 [facility] Comment on above: Performed By: #### 3 0738 #### [facility] [address] pH (Bld) 7.43 [pH] Normal 7.35-7.45 [facility] Comment on above: Performed By: #### 3 0738 #### [facility] [address] THB 13.6 g/dL Normal 12.0-16.3 [facility] Comment on above: Performed By: #### 3 0738 #### [facility] [address] CBC W/DIFFon 05-29-2021 ABS IMM GRANS 0.0 10*3/uL Normal 0.0-0.2 [facility] Comment on above: Performed By: #### 8 [id number] #### [facility] [address] [place] [address], [facility] ABS NEUTROPHILS 2.9 10*3/uL Normal 1.6-7.6 [facility] Comment on above: Performed By: #### 8 [id number] #### [facility] [address] [place] [address], [facility] Basophils (Bld) [#/Vol] 0.1 10*3/uL Normal 0.0-0.2 [facility] Comment on above: Performed By: #### 8 [id number] #### [facility] [address] [facility] [place] [address], [facility] Basophils/100 WBC (Bld) 1.3 % High 0.0-1.0 [facility] Comment on above: Performed By: #### 8 [id number] #### [facility] [address] [facility] [place] [address], [facility] Eosinophils (Bld) [#/Vol] 0.3 10*3/uL Normal 0.0-0.5 [facility] Comment on above: Performed By: #### 8 [id number] #### [facility] [address] [facility] [place] [address], [facility] Eosinophils/100 WBC (Bld) 6.0 % Normal 0.0-6.0 [facility] Comment on above: Performed By: #### 8 [id number] #### [facility] [address] [facility] [place] [address], [facility] Erythrocyte distribution width (RBC) [Ratio] 12.5 % Normal 11.5-15.0 [facility] Comment on above: Performed By: #### 8 [id number] #### [facility] [address] [facility] [place] [address], [facility] Hematocrit (Bld) [Volume fraction] 42.6 % Normal 39.0-50.0 [facility] Comment on above: Performed By: #### 8 [id number] #### [facility] [address] [facility] [place] [address], [facility] Hemoglobin (Bld) [Mass/Vol] 13.7 g/dL Normal 13.0-17.0 [facility] Comment on above: Performed By: #### 8 [id number] #### [facility] [address] [facility] [place] [address], [facility] IMMATURE GRANS 0.4 % Normal 0.0-1.0 [facility] Comment on above: Performed By: #### 8 [id number] #### [facility] [address] [place] [address], [facility] Lymphocytes (Bld) [#/Vol] 1.2 10*3/uL Normal 1.2-4.0 [facility] Comment on above: Performed By: #### 8 [id number] #### [facility] [address] [facility]. [address] Lymphocytes/100 WBC (Bld) 23.2 % Normal 20.0-45.0 [facility] Comment on above: Performed By: #### 8 [id number] #### [facility] [address] [place] [address], [facility] MCH (RBC) [Entitic mass] 30.2 pg Normal 27.0-33.0 [facility] Comment on above: Performed By: #### 8 [id number] #### [facility] [address] [facility]. [address] MCHC (RBC) [Mass/Vol] 32.2 g/dL Normal 32.0-35.0 [facility] Comment on above: Performed By: #### 8 [id number] #### [facility] [address] [facility] [place] [address], [facility] MCV (RBC) [Entitic vol] 94.0 fL Normal 82.0-98.0 [facility] Comment on above: Performed By: #### 8 [id number] #### [facility] [address] [place] [address], [facility] Monocytes (Bld) [#/Vol] 0.8 10*3/uL Normal 0.1-1.0 [facility] Comment on above: Performed By: #### 8 [id number] #### [facility] [address] [place] [address], [facility] MONOS 14.1 % High 5.0-12.0 [facility] Comment on above: Performed By: #### 8 [id number] #### [facility] [address] [place] [address], [facility] Neutrophils/100 WBC (Bld) 55.0 % Normal 40.0-72.0 [facility] Comment on above: Performed By: #### 8 [id number] #### [facility] [address] [place] [address], [facility] Nucleated RBC/100 WBC (Bld) [Ratio] 0 % Normal 0-0 [facility] Comment on above: Performed By: #### 8 [id number] #### [facility] [address] [facility] [place] [address], [facility] PLAT CNT 211 10*3/uL Normal 150-400 [facility] Comment on above: Performed By: #### 8 [id number] #### [facility] [address] [place] [address], [facility] RBC (Bld) [#/Vol] 4.53 10*6/uL Normal 4.20-5.70 [facility] Comment on above: Performed By: #### 8 [id number] #### [facility] [address] [facility] [place] [id number], [facility] WBC (Bld) [#/Vol] 5.31 10*3/uL Normal 4.00-10.60 [facility] Comment on above: Performed By: #### 8 [id number] #### [facility] [address] [place], [place] [address] CHEST AND LATERALon 05-29-20 CHEST AND LATERAL [facility] Department of Radiology [address] [place] [address] Patient Name: ISRAEL DEVINE : 1950 [...] identified. Electronically signed: Oneal Barth. Transcribed by: [email or web address], User Resident: Electronically Signed by: ONEAL BARTH @ 05/29/2021 03:39 PM Normal [facility] Comment on above: Order Comment: The A ptima SARS-CoV-2 assay is a nucleic acid amplification test intended for the qualitative detection of RNA from SARS-CoV-2 isolated and purified from nasopharyngeal (STORE STANDARDS ASSOCIATE),oropharyngeal (OP), nasal swab, sputum, and bronchoalveolar lavage (BAL) specimens from patients with signs and symptoms of infection who are suspected of COVID-19. Results are for the identification of SARS-CoV-2 RNA. The SARS-CoV-2 RNA is generally detectable during the acute phase of infection. The Aptima SARS-CoV-2 Assay on the DCITS and DCITS Fusion system is intended for use by laboratory personnel specifically instructed and trained in the operation of the [place] and [place] Fusion system. The Aptima SARS-CoV-2 assay is [...] Albumin [Mass/Vol] 4.3 g/dL Normal 3.5-5.7 [facility] Comment on above: Performed By: #### 0 0121 ####[facility] [facility].[address] ALKALINE PHOSPH 58 IU/L Normal 34-104 [facility] Comment on above: Performed By: #### 0 0121 ####[facility] [facility] [place] [place] [address], [facility] ALT [Catalytic activity/Vol] 14 U/L Normal 7-52 [facility] Comment on above: Performed By: #### 0 0121 ####[facility] [facility] [place] [place] [address], [facility] AST [Catalytic activity/Vol] 19 U/L Normal 13-39 [facility] Comment on above: Performed By: #### 0 0121 ####[facility] [place] [address], [facility] Bilirubin [Mass/Vol] 0.7 mg/dL Normal 0.3-1.0 [facility] Comment on above: Performed By: #### 0 0121 ####[facility] [place] [address], [facility] Calcium [Mass/Vol] 9.2 mg/dL Normal 8.6-10.3 [facility] Comment on above: Performed By: #### 0 0121 ####[facility] [place] [address], [facility] Chloride [Moles/Vol] 107 mmol/L Normal 98-107 [facility] Comment on above: Performed By: #### 0 0121 ####[facility] [place] [address], [facility] CO2 [Moles/Vol] 27 mmol/L Normal 21-31 [facility] Comment on above: Performed By: #### 0 0121 ####[facility] [place] [address], [facility] Creatinine [Mass/Vol] 1.09 mg/dL Normal 0.70-1.30 [facility] Comment on above: Performed By: #### 0 0121 ####[facility] [facility] [place] [address], [facility] GFR/1.73 sq M.predicted among blacks MDRD (S/P/Bld) [Vol rate/Area] mL/min/{1.73_m2} Normal >60 [facility] Comment on above: Result Comment: Calc ulation may not be valid for patients over 70 years Performed By: #### 0 0121 ####[facility] [place] [address], [place] GFR/1.73 sq M.predicted among non-blacks MDRD (S/P/Bld) [Vol rate/Area] mL/min/{1.73_m2} Normal >60 [facility] Comment on above: Result Comment: Calc ulation may not be valid for patients over 70 years Performed By: #### 0 0121 ####[facility] [place] [address], [place] Glucose [Mass/Vol] 78 mg/dL Normal 70-100 [facility] Comment on above: Performed By: #### 0 0121 ####[facility] [facility] [place] [address], [place] Potassium [Moles/Vol] 4.4 mmol/L Normal 3.5-5.1 [facility] Comment on above: Performed By: #### 0 0121 ####[facility] [facility] [place] [address], [place] Protein [Mass/Vol] 6.3 g/dL Normal 6.0-8.3 [facility] Comment on above: Performed By: #### 0 0121 ####[facility] [place] [address], [place] Sodium [Moles/Vol] 140 mmol/L Normal 136-145 [facility] Comment on above: Performed By: #### 0 0121 ####[facility] [place] [address], [place] Urea nitrogen [Mass/Vol] 26 mg/dL High 7-25 [facility] Comment on above: Performed By: #### 0 0121 ####[facility] [place] [address], [place] HEMOGLOBIN A1Con 05-29-2021 Glucose [Moles/Vol] 117 mmol/L Normal [facility] Comment on above: Performed By: #### 3 0965 #### [facility] [address] HbA1c (Bld) [Mass fraction] 5.7 % Normal 4.0-6.0 [facility] Comment on above: Performed By: #### 3 0965 #### [facility] [address] PROTHROMBIN TIMEon 1 INR Coag (PPP) [Relative time] 1.03 {INR} Normal 0.91-1.16 [facility] Comment on above: Result Comment: ACCC P [...] 1995;108:231S-246S. Performed By: #### 8 [id number] #### [facility] [address] [place] [address], [facility] PT Coag (PPP) [Time] 13.5 s Normal 12.3-14.8 [facility] Comment on above: Result Comment: ALL RESULTS MUST BE INTERPRETED WITH RESPECT TO BLOOD DRAWING ARTIFACT OR DILUTION ERROR OF ANTICOAGULANT AT THE TIME OF SAMPLING. Performed By: #### 8 [id number] #### [facility] [address] [place] [address], [facility] TYPE AND CROSSMATCHon 2020 ABO INTERPRETATION A Normal [facility] Comment on above: Order Comment: 4 UNI TS Performed By: #### 8 [id number] #### [facility] [address] [place] [address], [place] RH INTERPRETATION Positive Normal [facility] Comment on above: Order Comment: 4 UNI TS Performed By: #### 8 [id number] #### [facility] [address] [place] [address], [facility] URINALYSIS REFLEXon 05-29-20 21 Appearance (U) SL CLOUDY Abnormal CLEAR [facility] Comment on above: Performed By: #### 3 0965 #### [facility] [address] [place] [address], [facility] Bilirubin Ql (U) Negative Normal NEGATIVE [facility] Comment on above: Performed By: #### 3 0965 #### [facility] [address] [place] [address], [facility] Color (U) YELLOW Abnormal YELLOW [facility] Comment on above: Performed By: #### 3 0965 #### [facility] [address] [place] [address], [facility] EPIS FEW Normal FEW,OCC,NON E SEEN [facility] Comment on above: Performed By: #### 3 0965 #### [facility] [address] [place] [address], [place] Glucose Ql (U) Negative Normal NEGATIVE [facility] Comment on above: Performed By: #### 3 0965 #### [facility] [address] [place] [address], [place] Hemoglobin Ql (U) Negative Abnormal NEGATIVE [facility] Comment on above: Performed By: #### 3 0965 #### [facility] [address] [place] [address], [place] KETONE Negative Normal NEGATIVE [facility] Comment on above: Performed By: #### 3 0965 #### [facility] [address] [place] [address], [facility] LEUK ALYSA Negative Normal NEGATIVE [facility] Comment on above: Performed By: #### 3 0965 #### [facility] [address] [place] [address], [facility] MUCUS THREADS FEW Abnormal NONE SEEN [facility] Comment on above: Performed By: #### 3 0965 #### [facility] [address] [place] [address], [facility] Nitrite Ql (U) Negative Normal NEGATIVE [facility] Comment on above: Performed By: #### 3 0965 #### [facility] [address] [place] [address], [facility] pH (U) 5.0 [pH] Normal 5.0-8.0 [facility] Comment on above: Performed By: #### 3 0965 #### [facility] [address] [facility] [place] [address], [facility] Protein Ql (U) Negative Normal NEGATIVE [facility] Comment on above: Performed By: #### 3 0965 #### [facility] [address] [place] [address], [facility] RBC NONE SEEN Normal NONE SEEN [facility] Comment on above: Performed By: #### 3 0965 #### [facility] [address] [facility] [place] [place] [address], [facility] SPEC GRAV 1.026 High 1.015-1.020 [facility] Comment on above: Performed By: #### 3 0965 #### [facility] [address] [facility] [place] [place] [address], [facility] WBC UA 0-2 Abnormal NONE SEEN [facility] Comment on above: Performed By: #### 3 0965 #### [facility] [address] Cardiovascular Lab Reporton 05-18-2021 Cardiovascular Lab Report [facility] Patient Name: Israel Devine [facility] MR #: [id number] Physician: Pippa Pacheco of [facility] Ben[facility] Medicine Service Date: 05/18/2021 Division of Birthdate: 1950 Cardiology Room #: Adult Cardiovascular Services [facility] [address] [place] [address] Cardiovascular Laboratory Report INDICATION: Symptomatic severe aortic valve regurgitation. PROCEDURES: 1. Right heart catheterization. 2. Access into right internal jugular vein under ultrasound guidance. 3. Bilateral selective coronary angiography from the left radial access. METHODS: Procedure was explained to the patient with risks and benefits. He signed informed consent. He was brought to crown and bridge dental lab technician in a fasting state. The right neck area was prepped and draped in usual fashion. Micropuncture technique and ultrasound guidance was used for access in the right internal jugular vein. A 6-Venezuelan x 11 cm sheath was placed. A 6-Venezuelan Perales catheter was used for right catheterization with measurement of pressures and calculation of cardiac output using the estimated Mervin method. Perales catheter was removed. Access was obtained in the left radial artery using micropuncture technique. A 6-Venezuelan x 11 cm Hydrophilic sheath was advanced. Verapamil was given through the sheath and heparin was administered intravenously. Initial catheter advancement was made feasible using an angled Glidewire. Bilateral selective coronary angiography was then performed using 6-Venezuelan JL4 and JR4 diagnostic catheters. Catheters were [...] Benitez M.D. Date Trans: 05/18/2021 01:38 P/rebecao [id number] cc: Deb Klein M.D. [address] [id number] Normal [facility] March 30, 2021 Deb Klein, [address] [place] [id number] Re: ISRAEL DEVINE Date of : 1950 Thank you for your referral of Israel Devine who was seen on consultation on March 29, 2021, for screening colonoscopy. I have enclosed my consultation note for your review. I will be happy to follow Israel. Sincerely, Mane Dorsey MD General Surgery Normal [facility] Ambulatory Clinical Summaryo n 03-29-2021 Ambulatory Clinical Summary {[id number]}CD:[id number] Normal [facility] General Surgery Office/Clini c Noteon 03-29-2021 General Surgery Office/Clinic Note HPI Staff New pt., referred by Dr. Klein for screening colonoscopy. Last c-scope & egd was [address] Banks @ [facility]. Mother had colon surgery ? colon [...] Colon cancer: Mother. Lung cancer: Sister. Normal [facility] Comment on above: Result Comment: Jolene gaitan Signed By: AUSTYN GUILLAUME, Mane Martínez\Date and Time Signed: 03/29/21 14:43 EDT Patient [...] slower pace than normal. ? Eat soft, zdbj-nr-uqjpsp foods. ? Take xbtt-grl-dsykojb or prescription medicines only as told by [...] 02/26/2005 Document Revised: 05/07/2018 Document Reviewed: 09/25/2016 [employer] Patient Education ? 2020 [employer] Colonoscopy, Adult A colonoscopy is an [...] including vitamins, herbs, eye drops, creams, and hene-fxa-ajhqxxf medicines. ? Any problems you or family [...] drink clear liquid (more content not included)... [facility] Reminderson 03-29-2021 Reminders - From: Linh Martinez To: [facility] - Clinical; Sent: 03/29/2021 14:40:03 EDT Show up: 03/29/2024 14:39:00 EDT Subject: colonoscopy recall Due Date/Time: 03/29/2024 14:39:00 EDT Reminder/Recall Dr. Dorsey recomm screening cscope in 2023 , last scope was [address] Banks [facility] Physician Referralon 021 Physician Referral [id number] [facility] Encounters Encounter Date Encounter Type Care Provider Facility Start: 03-04-2023 End: 03-04-2023 ambulatory MALGORZATA DANIELLE [facility] Start: 06-22-2022 End: 06-23-[address] DEB KLEIN Facility:[facility] Start: 02-26-[address] DEB KLEIN Facility :[facility] Start: 01-30-2022 End: 01-31-[address] DEB KLEIN Facility:[facility] Start: 01-03-2022 End: 01-04-2022 ambulatory MALGORZATA DANIELLE Facility:[facility] Start: 12-19-2021 End: 12-20-[address] DEB KLEIN Facility:[facility] Start: 11-15-[address] [facility] Start: 09-08-2021 End: 09-09-[address] PIPPA BENITEZ Facility:[facility] Start: 08-07-2021 End: 11-15-[address] PIPPA BENITEZ Facility:[facility] Start: 07-12-2021 End: 07-17-2021 Evaluation and management of inpatient DEB KLEIN Facility:[facility] Start: 05-18-2021 End: 05-19-2021 ambulatory DEB KLEIN Facility:[facility] Start: 04-27-2021 End: 04-28-2021 ambulatory DEB HOHoward Facility:[facility] Procedures Date Procedure Procedure Detail Performing Clinician Start: 01-30-2022 PSA screening MALGORZATA Gomez OES Comment on above: Performed By: #### O BSCRN #### [facility] [address] [place] [address] Dr. Matt Suero Start: 12-19-2021 PSA screening MALGORZATA Gomez OES Comment on above: Performed By: #### P SAD #### [facility] [address] [place] [address] Dr. Matt Suero Start: 05-29-2021 Antibody screen DEB KLEIN Comment on above: Order Comment: 4 UNI TS Performed By: #### 8 5499 #### [address] Payers Date Payer Category Payer [employer] (FRANCISCO JAVIER and others) [id number] 1960 Medicare [id number] 1960 Self-pay 1950 Unknown [id number] 1950 Unknown [id number] 1950 Unknown [id number]..[id number] 1950 Unknown [id number] 1950 Unknown [id number] [id number] 1950 Unknown [id number] [id number] 1949 Unknown [id number] [id number] 1949 Unknown [id number] [id number] 1949 Unknown [id number] [id number] 1950 Unknown [id number] [id number] Unknown [id number] [id number] Progress note 03-04-2023 Note Date & Type Note Facility 03-04-2023 Note Currently stable wit hout any concerning symptoms Continue metoprolol and zocor Repeat echocardiogram. [facility] Progress note 03-04-2023 Note Date & Type Note Facility 03-04-2023 Note No concerning sympto ms and pt doing quite well without any activity limiting symptoms Repeat echocardiogram [facility] Progress note 03-04-2023 Note Date & Type Note Facility 03-04-2023 Note [facility] II- currently e uvolemic without exacerbation Continue [...] function and electrolytes- script for labs provided [facility] Progress note 03-04-2023 Note Date & Type Note Facility 03-04-2023 Note S/P cryomaze and atr iclip Remains on xarelto anticoagulation- denied any bleeding tendencies Continue metoprolol [facility] Progress note 03-04-2023 Note Date & Type Note Facility 03-04-2023 Note Continue zocor and s cript for annual labs provided including lipid level and LFT [facility] Progress note 03-04-2023 Note Date & Type Note Facility 03-04-2023 Note Coronary artery dise ase is stable Continue GDMT- no ASA with xarelto -(pt also taking celebrex- HTN well controlled) Continue zocor continue risk factor modifications- heart healthy diet, regular exercise as tolerated and continue all medications. 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 Prior cardiac testing: Stress test at [facility] on 09/25/18 shows EF at 56%, [...] 02/11/18 aortic regurgitation (more content not included)... [facility] Progress note 03-04-2023 Note Date & Type [...] All other systems reviewed and are negative. [facility] Discharge summary note 08-03-2021 Note Date & Type Note Facility 08-03-2021 Note MR#: [id number] I [facility] Pt. Name: Israel Devine Admitted: 07/12/2021 Discharged: 07/17/2021 Date of : 1950 Physician: Signh Dotson MD DISCHARGE SUMMARY PRINCIPAL DIAGNOSIS: Severe [...] discharge. Patient was discharged to rehab of [facility]. DISCHARGE CONDITION: Patient's condition at discharge, stable. Good. DISCHARGE DISPOSITION: [facility]. HOME MEDICATIONS: Celebrex 200 mg daily, [...] his own. All discharge instructions were faxed [facility]. Electronically Signed by: Singh Dotson MD 08/03/2021 09:50 A Singh Dotson MD I personally saw this patient on the day of the encounter, performed the weir portion(s) of the service and participated in the management and confirm the resident's documentation. Please note there may be an additional personal documentation from me. Date Dict: 08/02/2021/08:12 P/Kayla Wing, CLINICAL INTERVIEWER Date Trans: 08/03/2021 01:27 A/tangela [id number] cc: Deb Klein M.D. [address], [facility] [id number] [facility] Summary Purpose Family History No Family History [...] section and content) DATE CREATED AUTHOR 04/01/2021 [facility] DATE CREATED AUTHOR AUTHOR'S ORGANIZ ATION 03/23/[address] [facility] DATE CREATED AUTHOR AUTHOR'S ORGANIZ ATION 06/28/2022 [facility] DATE CREATED AUTHOR AUTHOR'S ORGANIZ ATION 03/04/2023 [facility] FOR RECORDS PERTAINING TO PATIENTS WHO [...] BE BASED ON THE PRIMARY CLINICAL RECORDS. [facility]. provides no warranty or guarantee of the accuracy or completeness of information in this document.
== END 2024-02-26 13:08 | disposition home or self-care (01) ==
LOC: CARD 13:07
PROVIDERS: PCP Family Medicine; Visit Provider Nurse Practitioner
DX: I35.1 Nonrheumatic aortic (valve) insufficiency (principal); I48.0 Paroxysmal atrial fibrillation; I25.10 Atherosclerotic heart disease of native coronary artery without angina pectoris
CPT/HCPCS: 93306

== ENCOUNTER 2024-05-11 13:37 | Outpatient (OUT) | payer MEDICARE, OTHER, SELFPAY | END 2024-05-11 13:38 | disposition home or self-care (01) | LOC: PST 13:37 | PROVIDERS: PCP Family Medicine; Visit Provider Surgery | DX: Z01.818 Encounter for other preprocedural examination (principal); Z12.11 Encounter for screening for malignant neoplasm of colon ==

== ENCOUNTER 2024-05-27 07:47 | Day surgery (SDC) | payer MEDICARE, OTHER, SELFPAY ==
--- NOTE | 2024-05-27 | OP_ITS ---
OPERATION DATE: 05/27/2024 PREOPERATIVE DIAGNOSIS: Colorectal screening. POSTOPERATIVE DIAGNOSIS: Sigmoid diverticulosis. PROCEDURE: Colonoscopy to cecum. SURGEON: Mane Dorsey M.D. ANESTHESIA: Monitored anesthesia care. ESTIMATED BLOOD LOSS: Zero. INDICATIONS AND CONSENT: Patient is a 73-year-old male presents for colorectal screening. Indications, risks, benefits, alternatives of proceeding with colonoscopy were explained extensively to the patient, including the risks of bleeding, colon perforation or anesthetic complications. All of his questions were answered. Informed consent was obtained. PROCEDURE: Patient brought to the operating room, placed in the left lateral decubitus position. Monitored anesthesia care was provided. Rectal exam was performed which showed no masses or blood. The scope was inserted into the anal canal. Under direct visualization was advanced. It was advanced to the cecum where cecal markings were clearly identified. Upon withdrawal of the scope, mucosal surfaces were carefully examined. There was noted to be a good prep. There were no mass lesions or polyps. No inflammatory changes or ulcerations. There was moderate sigmoid diverticulosis without inflammatory changes or scarring. The scope was retroflexed in the anal canal. There was no significant hemorrhoidal disease. Scope was then withdrawn. Patient tolerated procedure well, was sent to recovery room in good condition.f/u screening colonoscopy should be in 10 years if patient remains in good health. CC: Bird Klein M.D. ANDRES
--- OUTSIDE RECORDS SUMMARY | 2024-05-27 07:50 | XMS_ITS | CCD ---
Author Organization [facility] Care Team Providers Care Banking Manager Name Role Phone DEB KLEIN Primary Care Unavailable DEB KLEIN Referring Unavailable MASROOR, SINGH Admitting Unavailable MASROOR, SINGH Attending Unavailable DEB KLEIN Referring Unavailable MOUKAPIPPA QUICK V Attending Unavailable PIPPA BENITEZ V Admitting Unavailable DEB KLEIN Primary Care Unavailable DEB KLEIN Referring Unavailable SHASHIFRANKIEMALGORZATA M Attending Unavailable MALGORZATA DANIELLE Admitting Unavailable DEB KLEIN Primary Care Unavailable SHASHIMALGORZATA Admitting Unavailable SHASHIMALGORZATA Attending Unavailable MORAIMA, DR BOYD Primary Care Unavailable SHASHIMALGORZATA Consulting Unavailable CORRYY, DR BOYD Admitting Unavailable [...] Admitting Unavailable MOUKARBEL, DR DAS Attending Unavailable MORAIMA, DR BYOD Primary Care Unavailable MORAIMA, DR BOYD Admitting Unavailable HOY, DR BOYD Attending Unavailable HOY, DR BOYD Primary Care Unavailable MOUKARBEL, DR DAS Admitting Unavailable MOUKARBEL, DR DAS Attending Unavailable MORAIMA, DR BOYD Primary Care Unavailable MOUKAYNES, DR DAS Consulting Unavailable JULIANUKAPIPPA QUICK Attending Unavailable Deb Klein Primary Care Physician Mane ZAMAN Attending Unavailable Deb Klein Referring Unavailable Allergies Allergy Classification Reported Allergen(s) Allergy Type Date of Onset Reaction(s) Facility (1 source) No Known Medication Allergies; Translations: [No Known Medication Allergies] Propensity to adverse reactions (disorder) [facility] Repository Medications Current Medications Medication Drug Class(es) Dates Sig (Normalized) Sig (Original) celecoxib 100 mg oral capsule (1 source) Nonsteroidal Anti-inflammatory Drug Start: 04-22-2024 take 1 capsule by mouth once daily CeleBREX 100 mg Cap 100 mg = 1 cap(s), Oral, Daily, Refills(s) 0 Start Date: 04/22/24 Status: Ordered Centrum Silver oral tablet (1 source) Start: 03-22-2021 take 1 tablet by mouth once daily Centrum Silver oral tablet Oral, Daily, Refill(s) 0 Start Date: 03/22/21 Status: Ordered citalopram 40 mg oral tablet (1 source) Serotonin Reuptake Inhibitor Start: 03-22-2021 take 1 mg by mouth once daily citalopram 40 mg Tab mg tab(s), Oral, Daily, Refills(s) 0 Start Date: 03/22/21 Status: Ordered ferrous sulfate 325 mg oral tablet (1 source) Start: 03-22-2021 take 1 tablet by mouth once daily ferrous sulfate 325 mg Tab 325 mg = 1 tab(s), Oral, Daily, Refills(s) 0 Start Date: 03/22/21 Status: Ordered furosemide 20 mg oral tablet (1 source) Loop Diuretic Start: 04-22-2024 take 1 tablet by mouth once daily Lasix 20 mg Tab 20 mg = 1 tab(s), Oral, Daily, Refills(s) 0 Start Date: 04/22/24 Status: Ordered metoprolol tartrate 25 mg oral tablet (1 source) beta-Adrenergic Roly Start: 04-22-2024 take 1 tablet by mouth twice daily Metoprolol tartrate 25 mg Tab 25 mg = 1 tab(s), Oral, BID, Refills(s) 0 Start Date: 04/22/24 Status: Ordered omeprazole 20 mg delayed release oral capsule (1 source) Proton Pump Inhibitor Start: 03-22-2021 take 1 capsule by mouth once daily omeprazole 20 mg Cap-DR 20 mg = 1 cap(s), Oral, Daily, # 30 cap(s), Refills(s) 0 Start Date: 03/22/21 Status: Ordered rivaroxaban 20 mg oral tablet (1 source) Factor Xa Inhibitor Start: 03-22-2021 take 1 tablet by mouth once daily in the evening Xarelto 20 mg oral tablet 20 mg = 1 tab(s), Oral, qPM, Refills(s) 0 Start Date: 03/22/21 Status: Ordered simvastatin 80 mg oral tablet (1 source) HMG-CoA Reductase Inhibitor Start: 03-22-2021 take 1 mg by mouth once daily at bedtime simvastatin 80 mg Tab mg tab(s), Oral, Once a day (at bedtime), Refills(s) 0 Start Date: 03/22/21 Status: Ordered tamsulosin hydrochloride 0.4 mg oral capsule (1 source) alpha-Adrenergic Roly Start: 03-22-2021 take 1 mg by mouth once daily tamsulosin 0.4 mg Cap mg cap(s), Oral, Daily, Refills(s) 0 Start Date: 03/22/21 Status: Ordered Problems Active Problems Problem Classification Problem Date Documented Date Episodic/Chronic Anxiety disorders (2 sources) Anxiety disorder, unspecified; Translations: [Anxiety] Onset: 12-21-2021 03-22-2021 Chronic Calculus of urinary tract (1 source) History of calculus of kidney 04-22-2024 Episodic Cardiac dysrhythmias (3 sources) Paroxysmal atrial fibrillation; Translations: [Atrial fibrillation] Onset: 03-04-2023 Chronic Congestive heart failure; nonhypertensive (4 sources) Unspecified diastolic (congestive) heart failure; Translations: [Chronic diastolic (congestive) heart failure] Onset: 07-09-2013 Chronic Comment on above: Outside Source Comme nt: Last Assessment & Plan: [facility] II- currently euvolemic without exacerbation Continue GDMT- remains on lasix [...] function and electrolytes- script for labs provided Coronary atherosclerosis and other heart disease (4 sources) Atherosclerotic heart disease of [place] coronary artery without angina pectoris; Translations: [Coronary atherosclerosis] Onset: 07-20-2013 Chronic Deficiency and other anemia (1 source) Iron deficiency anemia 03-22-2021 Episodic Disorders of lipid metabolism (5 sources) Hyperlipidemia, unspecified; Translations: [Mixed hyperlipidemia] Onset: 12-21-2021 Chronic Diverticulosis and diverticulitis (1 source) Diverticular disease of colon 04-22-2024 Chronic Esophageal disorders (1 source) Gastroesophageal reflux disease Onset: 03-04-2024 04-22-2024 Chronic Gastroduodenal ulcer (except hemorrhage) (1 source) Gastric ulcer 03-22-2021 Chronic Headache; including migraine (1 source) Tension-type headache 04-22-2024 Chronic Heart valve disorders (15 sources) Nonrheumatic aortic (valve) insufficiency; Translations: [Nonrheumatic mitral (valve) insufficiency] Onset: 08-07-2021 Chronic Comment on above: Outside Source Comme nt: Overview: S/P valve replacement Last Assessment & Plan: Currently stable without any concerning symptoms Continue metoprolol and zocor Repeat echocardiogram. Hyperplasia of prostate (1 source) Benign prostatic hyperplasia Onset: 03-04-2024 04-22-2024 Chronic Hypertension with complications and secondary hypertension (1 source) Hypertensive heart disease with heart failure; Translations: [HTN HEART DISEASE W/HEART FAIL] Onset: 12-21-2021 Chronic Inflammatory conditions of male genital organs (4 sources) Inflammatory disease of prostate, unspecified; Translations: [INFLAMMATORY DISEASE PROSTATE UNS] Onset: 06-22-2022 Episodic Other and ill-defined heart disease (1 source) Left ventricular hypertrophy 04-22-2024 Chronic Other ear and sense organ disorders (1 source) Hearing loss Onset: 03-04-2024 04-22-2024 Chronic Other endocrine disorders (1 source) Testicular hypofunction; Translations: [TESTICULAR HYPOFUNCTION] Onset: 06-27-2022 Chronic Other male genital disorders (1 source) Impotence Onset: 03-04-2024 04-22-2024 Chronic Other nutritional; endocrine; and metabolic disorders (1 source) Overweight 04-22-2024 Episodic Other nutritional; endocrine; and metabolic disorders (1 source) Overweight in adulthood with body mass index of 25 or more but less than 30 04-28-2024 Episodic Other screening for suspected conditions (not mental disorders or infectious disease) (7 sources) Elevated prostate specific antigen [PSA]; Translations: [Encounter for screening for malignant neoplasm of prostate] Onset: 12-21-2021 Episodic Other upper respiratory disease (1 source) Seasonal allergic rhinitis 04-22-2024 Chronic Unclassified (1 source) Patient encounter status 03-29-2021 Past or Other Problems Problem Classification Problem Date Documented Da te Episodic/Chronic Deficiency and other anemia (1 source) Iron deficiency anemia, unspecified; Translations: [IRON DEFICIENCY ANEMIA UNSPECIFIED] Onset: 12-21-2021 Episodic Diabetes mellitus without complication (1 source) Other abnormal glucose; Translations: [OTHER ABNORMAL GLUCOSE] Onset: 12-21-2021 Episodic Malaise and fatigue (1 source) Other fatigue; Translations: [OTHER FATIGUE] Onset: 12-21-2021 Episodic Results Test Name Value Interpretation Reference Range Facility Ambulatory Visit Summaryon 1 Ambulatory Visit Summary Ambulatory Visit Summary ISRAEL DEVINE :1950 Visit Date:04/28/2024 Ambulatory Visit Instructions Your Care Team Attending Physician - Mane ZAMAN MD Primary Care Physician - Deb Klein MD Referring Physician - Deb Klein MD This Is Your Medications List celecoxib (CeleBREX 100 mg Cap) citalopram (citalopram 40 mg Tab) ferrous sulfate (ferrous sulfate 325 mg Tab) furosemide (Lasix 20 mg Tab) metoprolol (Metoprolol tartrate 25 mg Tab) multivitamin with minerals (Centrum Silver oral tablet) omeprazole (omeprazole 20 mg Cap-DR) rivaroxaban (Xarelto 20 mg oral tablet) simvastatin (simvastatin 80 mg Tab) tamsulosin (tamsulosin 0.4 mg Cap) Procedures Performed Plantar fasciotomy (12/16/2015), Colonoscopy (03/15/2014), EGD - Esophagogastroduodenoscopy (03/15/2014), Colonoscopy (03/10/2008), Arthroplasty of knee, Arthroscopy of knee, Cardiac catheterization, Cardiac catheterization, Replacement of aortic valve. Discharge Vitals Heart Rate (Peripheral) 70 Respiratory Rate 16 Blood Pressure 116/72 Height 182.8 cm Height 72 in Weight 94 kg Weight 206.8 lb BMI 28.13 Medications What How Much When Instructions Unchanged celecoxib (CeleBREX 100 mg Cap) 1 Capsules By Mouth Every day Unchanged citalopram (citalopram 40 mg Tab) By Mouth Every day Unchanged ferrous sulfate (ferrous sulfate 325 mg Tab) 1 Tablets By Mouth Every day Unchanged furosemide (Lasix 20 mg Tab) 1 Tablets By Mouth Every day Unchanged metoprolol (Metoprolol tartrate 25 mg Tab) 1 Tablets By Mouth 2 times a day Unchanged multivitamin with minerals (Centrum Silver oral tablet) By Mouth Every day Unchanged omeprazole (omeprazole 20 mg Cap-DR) 1 Capsules By Mouth Every day Unchanged rivaroxaban (Xarelto 20 mg oral tablet) 1 Tablets By Mouth Once a day (in the evening) Unchanged simvastatin (simvastatin 80 mg Tab) By Mouth Once a day (at bedtime) Unchanged tamsulosin (tamsulosin 0.4 mg Cap) By Mouth Every day Allergies No Known Allergies No Known Medication Allergies Problems Ongoing - Any problem that you are currently receiving treatment for. A-fib Anxiety Aortic stenosis, non-rheumatic Aortic valve regurgitation Benign prostatic hyperplasia BMI 28.0-28.9,adult Chronic diastolic heart failure Coronary atherosclerosis Diverticular disease of colon Erectile dysfunction Gastric ulcer Gastroesophageal reflux disease Hearing loss History of nephrolithiasis Hyperlipidemia Iron deficiency anemia Left ventricular hypertrophy Overweight Pure hypercholesterolemia Screening for malignant neoplasm of colon Seasonal allergic rhinitis Tension-type headache Tricuspid valve regurgitation Patient Survey You may receive a survey via text or e-mail asking about your office visit. Please share your experience with us by completing your survey. We appreciate your feedback and thank you for choosing us for your care. Normal [facility] Office Visiton 03-04-2024 Follow-up visit [id number] Beau Devine 1950 M Date Provider Department Center 03/04/2024 Darleen-PIPPA BENITEZ [facility] Family History Family history unknown: Yes Level of Service:46077 PA OFFICE/OUTPATIENT ESTABLISHED MOD MDM 30 MIN Normal [facility] PSA, FREE AND TOTAL RATIOon 06-23-2022 % Free PSA 14.7 % Normal [facility] Comment on above: Result Comment: The [...] men. Performed By: #### P SAFREE #### [facility] [address] [place] [address] Dr. Matt Suero Prostate specific Ag [Mass/Vol] 1.7 ng/mL Normal 0.0-4.0 [facility] Comment on above: Result Comment: Keiko TURNER methodology. . According to the [employer], Serum PSA should decrease and [...] disease. Performed By: #### P SAFREE #### [facility] [address] [place] [address] Dr. Matt Suero PSA, Free 0.25 ng/mL Normal N/A [facility] Comment on above: Result Comment: Keiko TUNRER methodology. Performed By: #### P SAFREE #### [facility] [address] [place] [address] Dr. Matt Suero TESTOSTERONE, TOTALon 2021 Testosterone [Mass/Vol] 302 ng/dL Normal 264-916 [facility] Comment on above: Result Comment: Adul t male reference interval is based on a population of healthy nonobese males (BMI <30) between 19 and 39 years old. yoli Villalobos.al. JCEM 2017,102;6483-0985. PMID: [id number]. Performed By: #### O BSCRN #### [facility] [address] [place], [place] [id number] Dr. Matt Suero PSA, FREE AND TOTAL RATIOon 02-02-2022 % Free PSA 13.2 % Normal [facility] Comment on above: Result Comment: The [...] men. Performed By: #### O BSCRN #### [facility] [address] [place] [address] Dr. Matt Suero Prostate specific Ag [Mass/Vol] 2.2 ng/mL Normal 0.0-4.0 [facility] Comment on above: Result Comment: Keiko menendez ECLIA methodology. . According to the [employer], Serum PSA should decrease and [...] disease. Performed By: #### O BSCRN #### [facility] [address] [address] [address] Matt Suero PSA, Free 0.29 ng/mL Normal N/A [facility] Comment on above: Result Comment: Keiko menendez ECLIA methodology. Performed By: #### O BSCRN #### [facility] [address] [place], [place] [id number] Dr. Matt Suero ECHOCARDIO M/2D COMPLETEon 0 01-03-2022 ECHOCARDIO M/2D COMPLETE Patient: ISRAEL DEVINE Exam Date: 01/03/2022 : 1950 Gender:M Ordering : MALGORZATA DANIELLE Admission #: [id number] Family : DR AVILAPAIGE WHEATLEYHoward . Order #: [id number] CLICK HERE TO VIEW EXAM ECHOCARDIOGRAM REPORT [...] Sr M.D. on 01/03/2022 at 13:41 Normal [facility] PSA, FREE AND TOTAL RATIOon 12-21-2021 % Free PSA 25.3 % Normal [facility] Comment on above: Result Comment: The [...] men. Performed By: #### O BSCRN #### [facility] [address] [place] [address] Dr. Matt Suero Prostate specific Ag [Mass/Vol] 10.4 ng/mL Critically high 0.0-4.0 [facility] Comment on above: Result Comment: Keiko TURNER methodology. . According to the [employer], Serum PSA should decrease and [...] disease. Performed By: #### O BSCRN #### [facility] [address] [place] [address] Dr. Matt Suero PSA, Free 2.63 ng/mL Normal N/A [facility] Comment on above: Result Comment: Keiko menendez ECLIA methodology. Performed By: #### O BSCRN #### [facility] [address] [place] [address] Dr. Matt Suero INSULINon 12-20-2021 Insulin 13.6 uIU/mL Normal 2.6-24.9 [facility] Comment on above: Performed By: #### I NSULIN #### [facility] [address] [place] [address] Dr. Matt Suero TESTOSTERONE, TOTALon 2021 Testosterone [Mass/Vol] 250 ng/dL Critically low 264-916 [facility] Comment on above: Result Comment: Adul t male reference interval is based on a population of healthy nonobese males (BMI <30) between 19 and 39 years old. Wilfredo, et.al. JCEM 2017,102;6535-0886. PMID: [id number]. Performed By: #### O BSCRN #### [facility] [address] [place] [address] Dr. Matt Suero BNPon 12-19-2021 Natriuretic peptide B (Bld) [Mass/Vol] 795.0 pg/mL Normal <=900.0 [facility] Comment on above: Performed By: #### B INSPECTOR OUTSIDE PRODUCTION, URIC, CMP, LIPID #### [facility] [address] [place] [address] Dr. Matt Suero CBC AUTO DIFFon 12-19-2021 BASO # 0.1 103/ul Normal 0.0-0.1 [facility] Comment on above: Performed By: #### C BC #### [facility] [address] [place] [address] Dr. Matt Suero Basophils/100 WBC (Bld) 0.6 % Normal 0.2-2.0 [facility] Comment on above: Performed By: #### C BC #### [facility] [address] [place] [address] Dr. Matt Suero EO # 0.3 103/ul Normal 0.0-0.7 [facility] Comment on above: Performed By: #### C BC #### [facility] [address] [place] [address] Dr. Matt Suero Eosinophils/100 WBC (Bld) 2.6 % Normal 0.9-7.0 [facility] Comment on above: Performed By: #### C BC #### [facility] [address] [place] [address] Dr. Matt Suero Erythrocyte distribution width (RBC) [Ratio] 14.4 % Normal 11.0-15.0 [facility] Comment on above: Performed By: #### C BC #### [facility] [address] [place] [address] Dr. Matt Suero Hematocrit (Bld) [Volume fraction] 36.5 % Critically low 42.0-54.0 [facility] Comment on above: Performed By: #### C BC #### [facility] [address] [place] [address] Dr. Matt Suero Hemoglobin (Bld) [Mass/Vol] 11.6 g/dL Critically low 14.0-18.0 [facility] Comment on above: Performed By: #### C BC #### [facility] [address] [place] [address] Dr. Matt Suero IG # 0.03 10e3/ul Normal 0.00-0.03 [facility] Comment on above: Performed By: #### C BC #### [facility] [address] [place] [address] Dr. Matt Suero IG % 0.3 % Normal 0.0-0.5 [facility] Comment on above: Performed By: #### C BC #### [facility] [address] [place] [address] Dr. Mtat Suero LYMPH # 0.9 103/ul Critically low 1.2-3.8 [facility] Comment on above: Performed By: #### C BC #### [facility] [address] [place] [address] Dr. Matt Suero Lymphocytes/100 WBC (Bld) 8.8 % Critically low 20.5-60.0 [facility] Comment on above: Performed By: #### C BC #### [facility] [address] [place] [address] Dr. Matt Suero MANUAL DIFF REQ NO Normal [facility] Comment on above: Performed By: #### C BC #### [facility] [address] [place] [address] Dr. Matt Suero MCH (RBC) [Entitic mass] 28.8 pg Normal 25.9-34.0 [facility] Comment on above: Performed By: #### C BC #### [facility] [address] [place] [address] Dr. Matt Suero MCHC (RBC) [Mass/Vol] 31.8 g/dL Normal 29.9-35.2 [facility] Comment on above: Performed By: #### C BC #### [facility] [address] [place] [address] Dr. Matt Suero MCV (RBC) [Entitic vol] 90.6 fL Normal 80.0-94.0 [facility] Comment on above: Performed By: #### C BC #### [facility] [address] [place] [address] Dr. Matt Suero MONO # 1.0 103/ul Critically high 0.3-0.8 [facility] Comment on above: Performed By: #### C BC #### [facility] [address] [place] [address] Dr. Matt Suero Monocytes/100 WBC (Bld) 9.2 % Normal 1.7-12.0 [facility] Comment on above: Performed By: #### C BC #### [facility] [address] [place] [address] Dr. Matt Suero NEUT # 8.3 103/ul Critically high 1.4-6.5 [facility] Comment on above: Performed By: #### C BC #### [facility] [address] [address] [address] Matt Suero Neutrophils/100 WBC (Bld) 78.5 % Critically high 43.0-75.0 [facility] Comment on above: Performed By: #### C BC #### [facility] [address] [address] [address] Matt Sueor Platelet mean volume (Bld) [Entitic vol] 8.8 fL Critically low 9.5-13.5 [facility] Comment on above: Performed By: #### C BC #### [facility] [address] [place] [address] Dr. Matt Suero PLT 277 103/ul Normal 150-450 [facility] Comment on above: Performed By: #### C BC #### [facility] [address] [place] [address] Dr. Matt Suero RBC 4.03 106/ul Critically low 4.70-6.10 [facility] Comment on above: Performed By: #### C BC #### [facility] [address] [place] [address] Dr. Matt Suero WBC 10.6 103/ul Normal 4.0-11.0 [facility] Comment on above: Performed By: #### C BC #### [facility] [address] [place] [address] Dr. Matt Suero GLYCOHEMOGLOBIN A1Con 2021 ADA RECOMMENDATION SEE BELOW Normal [facility] Comment on above: Result Comment: ADA RECOMMENDED LIMIT 4.0 - 6.0 ADA THERAPEUTIC TARGET < 7.0 ACTION SUGGESTED > 7.0 Performed By: #### O BSCRN #### [facility] [address] [place] [address] Dr. Matt Suero Glucose [Mass/Vol] 126 mg/dL Normal [facility] Comment on above: Performed By: #### O BSCRN #### [facility] [address] [place] [address] Dr. Matt Suero HbA1c (Bld) [Mass fraction] 6.0 % Normal 4.5-6.2 [facility] Comment on above: Performed By: #### O BSCRN #### [facility] [address] [address] [address] Matt Suero LIPID PROFILEon 12-19-2021 CHOL-HDL RATIO NORM SEE BELOW Normal [facility] Comment on above: Result Comment: 3.3 - 4.4 LOW RISK 4.4 - 7.1 AVERAGE RISK 7.1 - 11.0 MODERATE RISK >11.0 HIGH RISK Performed By: #### B INSPECTOR OUTSIDE PRODUCTION, URIC, CMP, LIPID #### [facility] [address] [address] [address] Matt Suero Cholesterol [Mass/Vol] 153 mg/dL Normal <=200 [facility] Comment on above: Performed By: #### B INSPECTOR OUTSIDE PRODUCTION, URIC, CMP, LIPID #### [facility] [address] [address] [address] Matt Suero Cholesterol in HDL [Mass/Vol] 69 mg/dL Critically high 40-60 [facility] Comment on above: Performed By: #### B INSPECTOR OUTSIDE PRODUCTION, URIC, CMP, LIPID #### [facility] [address] [address] [address] Matt Suero Cholesterol in LDL [Mass/Vol] 69.0 mg/dL Normal [facility] Comment on above: Performed By: #### B INSPECTOR OUTSIDE PRODUCTION, URIC, CMP, LIPID #### [facility] [address] [address] [address] Matt Suero Cholesterol.total/ Cholesterol in HDL [Mass ratio] 2.2 {ratio} Normal [facility] Comment on above: Performed By: #### B INSPECTOR OUTSIDE PRODUCTION, URIC, CMP, LIPID #### [facility] [address] [address] [address] Matt Suero HDL NORMAL > or = 60 mg/dl - LO W CARDIOVASCULAR RISK <40 mg/dl - HIGH CARDIOVASCULAR RISK Normal [facility] Comment on above: Performed By: #### B INSPECTOR OUTSIDE PRODUCTION, URIC, CMP, LIPID #### [facility] [address] [place] [address] Dr. Matt Suero LDL CALC NORMAL SEE BELOW Normal [facility] Comment on above: Result Comment: <100 mg/dl OPTIMAL 100 - 129 mg/dl NEAR OR ABOVE OPTIMAL 130 - 159 mg/dl BORDERLINE HIGH 160 - 189 mg/dl HIGH >190 mg/dl VERY HIGH Performed By: #### B INSPECTOR OUTSIDE PRODUCTION, URIC, CMP, LIPID #### [facility] [address] [address] [address] Matt Suero Triglyceride [Mass/Vol] 72 mg/dL Normal <=150 [facility] Comment on above: Performed By: #### B INSPECTOR OUTSIDE PRODUCTION, URIC, CMP, LIPID #### [facility] [address] [address] [address] Matt Suero VLDL CALC 14.4 mg/dL Normal [facility] Comment on above: Performed By: #### B INSPECTOR OUTSIDE PRODUCTION, URIC, CMP, LIPID #### [facility] [address] [place] [address] Dr. Matt Suero OCC BLD IMMUNO SCREENon 11-27 OCCULT BLOOD Negative Normal NEGATIVE [facility] Comment on above: Performed By: #### O BSCRN #### [facility] [address] [address] [address] Matt Suero PROF 14(COMP METB)on 022 Albumin [Mass/Vol] 3.3 g/dL Critically low 3.4-5.0 [facility] Comment on above: Performed By: #### B INSPECTOR OUTSIDE PRODUCTION, URIC, CMP, LIPID #### [facility] [address] [address] [address] Matt Suero Albumin/Globulin [Mass ratio] 0.8 {ratio} Normal [facility] Comment on above: Performed By: #### B INSPECTOR OUTSIDE PRODUCTION, URIC, CMP, LIPID #### [facility] [address] [address] [address] Matt Suero ALP [Catalytic activity/Vol] 76 U/L Normal 46-116 [facility] Comment on above: Performed By: #### B INSPECTOR OUTSIDE PRODUCTION, URIC, CMP, LIPID #### [facility] [address] [address] [address] Matt Suero ALT [Catalytic activity/Vol] 24 U/L Normal 16-63 [facility] Comment on above: Performed By: #### B INSPECTOR OUTSIDE PRODUCTION, URIC, CMP, LIPID #### [facility] [address] [place] [address] Dr. Matt Suero Anion gap [Moles/Vol] 13.8 mmol/L Normal [facility] Comment on above: Performed By: #### B INSPECTOR OUTSIDE PRODUCTION, URIC, CMP, LIPID #### [facility] [address] [place] [address] Dr. Matt Suero AST [Catalytic activity/Vol] 19 U/L Normal 15-37 [facility] Comment on above: Performed By: #### B INSPECTOR OUTSIDE PRODUCTION, URIC, CMP, LIPID #### [facility] [address] [place] [address] Dr. Matt Suero Bilirubin [Mass/Vol] 0.5 mg/dL Normal 0.2-1.0 [facility] Comment on above: Performed By: #### B INSPECTOR OUTSIDE PRODUCTION, URIC, CMP, LIPID #### [facility] [address] [place] [address] Dr. Matt Suero Calcium [Mass/Vol] 9.0 mg/dL Normal 8.5-10.1 [facility] Comment on above: Performed By: #### B INSPECTOR OUTSIDE PRODUCTION, URIC, CMP, LIPID #### [facility] [address] [place] [address] Dr. Matt Suero Chloride [Moles/Vol] 102 mmol/L Normal 98-107 [facility] Comment on above: Performed By: #### B INSPECTOR OUTSIDE PRODUCTION, URIC, CMP, LIPID #### [facility] [address] [place] [address] Dr. Matt Suero CO2 [Moles/Vol] 28.3 mmol/L Normal 21.0-32.0 [facility] Comment on above: Performed By: #### B INSPECTOR OUTSIDE PRODUCTION, URIC, CMP, LIPID #### [facility] [address] [place] [address] Dr. Matt Suero Creatinine [Mass/Vol] 1.01 mg/dL Normal 0.70-1.30 [facility] Comment on above: Performed By: #### B INSPECTOR OUTSIDE PRODUCTION, URIC, CMP, LIPID #### [facility] [address] [address] [address] Matt Suero EGFR-AF BURMESE >60 Normal >=60 [facility] Comment on above: Performed By: #### B INSPECTOR OUTSIDE PRODUCTION, URIC, CMP, LIPID #### [facility] [address] [address] [address] Matt Suero EGFR-NON AF BURMESE >60 Normal >=60 [facility] Comment on above: Performed By: #### B INSPECTOR OUTSIDE PRODUCTION, URIC, CMP, LIPID #### [facility] [address] [address] [address] Matt Suero Globulin (S) [Mass/Vol] 4.2 g/dL Normal [facility] Comment on above: Performed By: #### B INSPECTOR OUTSIDE PRODUCTION, URIC, CMP, LIPID #### [facility] [address] [address] [address] Matt Suero Glucose [Mass/Vol] 115 mg/dL Critically high 74-106 [facility] Comment on above: Performed By: #### B INSPECTOR OUTSIDE PRODUCTION, URIC, CMP, LIPID #### [facility] [address] [address] [address] Matt Suero Potassium [Moles/Vol] 4.6 mmol/L Normal 3.5-5.1 [facility] Comment on above: Performed By: #### B INSPECTOR OUTSIDE PRODUCTION, URIC, CMP, LIPID #### [facility] [address] [address] [address] Matt Suero Protein [Mass/Vol] 7.5 g/dL Normal 6.4-8.2 [facility] Comment on above: Performed By: #### B INSPECTOR OUTSIDE PRODUCTION, URIC, CMP, LIPID #### [facility] [address] [address] [address] Matt Suero Sodium [Moles/Vol] 140 mmol/L Normal 136-145 [facility] Comment on above: Performed By: #### B INSPECTOR OUTSIDE PRODUCTION, URIC, CMP, LIPID #### [facility] [address] [address] [address] Matt Suero Urea nitrogen [Mass/Vol] 21.0 mg/dL Critically high 7.0-18.0 [facility] Comment on above: Performed By: #### B INSPECTOR OUTSIDE PRODUCTION, URIC, CMP, LIPID #### [facility] [address] [address] [address] Matt Suero Urea nitrogen/Creatinin e [Mass ratio] 20.7 mg/mg Normal [facility] Comment on above: Performed By: #### B INSPECTOR OUTSIDE PRODUCTION, URIC, CMP, LIPID #### [facility] [address] [address] [address] Matt Suero URIC ACID SERUMon 12-19-2021 Urate [Mass/Vol] 5.2 mg/dL Normal 3.5-7.2 [facility] Comment on above: Performed By: #### B INSPECTOR OUTSIDE PRODUCTION, URIC, CMP, LIPID #### [facility] [address] [address] [address] Matt Suero ECHOCARDIO M/2D COMPLETEon 0 09-08-2021 ECHOCARDIO M/2D COMPLETE Patient: ISRAEL DEVINE Exam Date: 09/08/2021 : 1950 Gender:M Ordering : DR PIPPA BENITEZ M.D. Admission #: [id number] Family : DR DEB KLEIN . Order #: [id number] CLICK HERE TO VIEW EXAM ECHOCARDIOGRAM REPORT [...] Area(A4C): 26.40 cm2 Left Atrium Systolic Volume(A2C): 314084 mm3 Left Atrium Systolic Volume(A4C): 94982 mm3 Mitral Valve MV E to A [...] Benitez M.D. on 09/08/2021 at 15:59 Normal [facility] BASIC METABOLIC PANELon 12-2 Calcium [Mass/Vol] 8.9 mg/dL Normal 8.6-10.3 [facility] Comment on above: Order Comment: Pneum othorax Performed By: #### 0 0071, 28365, 60940 ####[facility] [place] [address], [facility] Chloride [Moles/Vol] 93 mmol/L Low 98-107 [facility] Comment on above: Order Comment: Pneum othorax Performed By: #### 0 0071, 68837, 70934 ####[facility] [place] [address], [facility] CO2 [Moles/Vol] 30 mmol/L Normal 21-31 [facility] Comment on above: Order Comment: Pneum othorax Performed By: #### 0 0071, 24191, 11483 ####[facility] [facility] [place] [address], [facility] Creatinine [Mass/Vol] 1.00 mg/dL Normal 0.70-1.30 [facility] Comment on above: Order Comment: Pneum othorax Performed By: #### 0 0071, 20086, 40747 ####[facility] [place] [address], [facility] GFR/1.73 sq M.predicted among blacks MDRD (S/P/Bld) [Vol rate/Area] mL/min/{1.73_m2} Normal >60 [facility] Comment on above: Order Comment: Pneum othorax Result Comment: Calc ulation may not be valid for patients over 70 years Performed By: #### 0 0071, 55797, 56748 ####[facility] [place] [address], [facility] GFR/1.73 sq M.predicted among non-blacks MDRD (S/P/Bld) [Vol rate/Area] mL/min/{1.73_m2} Normal >60 [facility] Comment on above: Order Comment: Pneum othorax Result Comment: Calc ulation may not be valid for patients over 70 years Performed By: #### 0 0071, 87938, 32019 ####[facility] [facility] [place] [place] [address], [facility] Glucose [Mass/Vol] 112 mg/dL High 70-100 [facility] Comment on above: Order Comment: Pneum othorax Performed By: #### 0 0071, 68563, 90462 ####[facility] [facility] [place] [address], [facility] Potassium [Moles/Vol] 3.9 mmol/L Normal 3.5-5.1 [facility] Comment on above: Order Comment: Pneum othorax Performed By: #### 0 0071, 57538, 69713 ####[facility] [facility] [place] [address], [facility] Sodium [Moles/Vol] 134 mmol/L Low 136-145 [facility] Comment on above: Order Comment: Pneum othorax Performed By: #### 0 0071, 38033, 64942 ####[facility] [place] [address], [facility] Urea nitrogen [Mass/Vol] 20 mg/dL Normal 7-25 [facility] Comment on above: Order Comment: Pneum othorax Performed By: #### 0 0071, 69126, 84798 ####[facility] [place] [address], [facility] CBC COMPLETE BLOOD COUNTon 1 09-17-2020 Erythrocyte distribution width (RBC) [Ratio] 12.7 % Normal 11.5-15.0 [facility] Comment on above: Order Comment: No: D o not add to previous draw Performed By: #### 5 0608 #### [facility] [address] [place] [address], [facility] Hematocrit (Bld) [Volume fraction] 31.6 % Low 39.0-50.0 [facility] Comment on above: Order Comment: No: D o not add to previous draw Performed By: #### 5 0608 #### [facility] [address] [place] [address], [facility] Hemoglobin (Bld) [Mass/Vol] 10.3 g/dL Low 13.0-17.0 [facility] Comment on above: Order Comment: No: D o not add to previous draw Performed By: #### 5 0608 #### [facility] [address] [place] [id number], [facility] MCH (RBC) [Entitic mass] 30.5 pg Normal 27.0-33.0 [facility] Comment on above: Order Comment: No: D o not add to previous draw Performed By: #### 5 0608 #### [facility] [address] [place] [address], [facility] MCHC (RBC) [Mass/Vol] 32.6 g/dL Normal 32.0-35.0 [facility] Comment on above: Order Comment: No: D o not add to previous draw Performed By: #### 5 0608 #### [facility] [address] [facility] [place] [address], [facility] MCV (RBC) [Entitic vol] 93.5 fL Normal 82.0-98.0 [facility] Comment on above: Order Comment: No: D o not add to previous draw Performed By: #### 5 0608 #### [facility] [address] [place] [address], [facility] Nucleated RBC/100 WBC (Bld) [Ratio] 0 % Normal 0-0 [facility] Comment on above: Order Comment: No: D o not add to previous draw Performed By: #### 5 0608 #### [facility] [address] [place] [id number], [facility] PLAT CNT 200 10*3/uL Normal 150-400 [facility] Comment on above: Order Comment: No: D o not add to previous draw Performed By: #### 5 0608 #### [facility] [address] [place] [address], [facility] RBC (Bld) [#/Vol] 3.38 10*6/uL Low 4.20-5.70 [facility] Comment on above: Order Comment: No: D o not add to previous draw Performed By: #### 5 0608 #### [facility] [address] [place] [address], [facility] WBC (Bld) [#/Vol] 9.06 10*3/uL Normal 4.00-10.60 [facility] Comment on above: Order Comment: No: D o not add to previous draw Performed By: #### 5 0608 #### [facility] [address] [place] [address], [facility] MAGNESIUM BLOODon 07-17-2021 Magnesium [Mass/Vol] 1.8 mg/dL Low 1.9-2.7 [facility] Comment on above: Order Comment: Pneum othorax Performed By: #### 0 0071, 74834, 41090 ####[facility] [place] [address], [facility] PHOSPHORUS BLOODon Phosphate [Mass/Vol] 4.3 mg/dL Normal 2.5-5.0 [facility] Comment on above: Order Comment: Pneum othorax Performed By: #### 0 0071, 53464, 75671 ####[facility] [place] [address], [facility] POC GLUCOSE LABon 07-17-2021 Glucose [Mass/Vol] 151 mg/dL High 70-100 [facility] Comment on above: Performed By: #### 8 5499 #### [facility] [address] [place] [address], [facility] Glucose [Mass/Vol] 111 mg/dL High 70-100 [facility] Comment on above: Performed By: #### 8 5499 #### [address] PORTABLE CHEST 1 VIEWon 06-29 PORTABLE CHEST 1 VIEW [facility] Department of Radiology [address] [place] [address] [place] [address] Patient Name: ISRAEL DEVINE : 1950 Sex: M Age: Race: White Pt. Location: [address] [address] Patient Status: I Ordered Date: 07/17/2021 5:00:00 [...] change Electronically signed: Kumar Ross. Transcribed by: [email or web address], User Resident: Electronically Signed by: KUMAR ROSS @ 07/17/2021 07:45 AM Normal [facility] Comment on above: Order Comment: The A ptima SARS-CoV-2 assay is a nucleic acid amplification test intended for the qualitative detection of RNA from SARS-CoV-2 isolated and purified from nasopharyngeal (INSPECTOR OUTSIDE PRODUCTION),oropharyngeal (OP), nasal swab, sputum, and bronchoalveolar lavage (BAL) specimens from patients with signs and symptoms of infection who are suspected of COVID-19. Results are for the identification of SARS-CoV-2 RNA. The SARS-CoV-2 RNA is generally detectable during the acute phase of infection. The Aptima SARS-CoV-2 Assay on the [employer] and [employer] Fusion system is intended for use by laboratory personnel specifically instructed and trained in the operation of the [place] and [employer] Fusion system. The Aptima SARS-CoV-2 assay is [...] Calcium [Mass/Vol] 8.6 mg/dL Normal 8.6-10.3 [facility] Comment on above: Order Comment: Pneum othorax Performed By: #### 4 999, 58717, 30422 ####[facility] [place] [address], [facility] Chloride [Moles/Vol] 97 mmol/L Low 98-107 [facility] Comment on above: Order Comment: Pneum othorax Performed By: #### 4 999, 85195, 82340 ####[facility] [id number], [facility] CO2 [Moles/Vol] 30 mmol/L Normal 21-31 [facility] Comment on above: Order Comment: Pneum othorax Performed By: #### 4 1000, 73551, 91396 ####[facility] [place] [address], [facility] Creatinine [Mass/Vol] 0.92 mg/dL Normal 0.70-1.30 [facility] Comment on above: Order Comment: Pneum othorax Performed By: #### 4 999, 71182, 43389 ####[facility] [place] [address], [facility] GFR/1.73 sq M.predicted among blacks MDRD (S/P/Bld) [Vol rate/Area] mL/min/{1.73_m2} Normal >60 [facility] Comment on above: Order Comment: Pneum othorax Result Comment: Calc ulation may not be valid for patients over 70 years Performed By: #### 4 999, 99051, 05977 ####[facility] [facility] [place] [address], [facility] GFR/1.73 sq M.predicted among non-blacks MDRD (S/P/Bld) [Vol rate/Area] mL/min/{1.73_m2} Normal >60 [facility] Comment on above: Order Comment: Pneum othorax Result Comment: Calc ulation may not be valid for patients over 70 years Performed By: #### 4 999, 27599, 96197 ####[facility] [place] [address], [facility] Glucose [Mass/Vol] 107 mg/dL High 70-100 [facility] Comment on above: Order Comment: Pneum othorax Performed By: #### 4 999, 37291, 99290 ####[facility] [place] [address], [place] Potassium [Moles/Vol] 4.1 mmol/L Normal 3.5-5.1 [facility] Comment on above: Order Comment: Pneum othorax Performed By: #### 4 999, 01892, 73683 ####[facility] [place] [address], [place] Sodium [Moles/Vol] 134 mmol/L Low 136-145 [facility] Comment on above: Order Comment: Pneum othorax Performed By: #### 4 1000, 75966, 25936 ####[facility] [facility] [place] [place] [address], [facility] Urea nitrogen [Mass/Vol] 22 mg/dL Normal 7-25 [facility] Comment on above: Order Comment: Pneum othorax Performed By: #### 4 1000, 29408, 30799 ####[facility] [facility] CBC COMPLETE BLOOD COUNTon 09-16-2020 Erythrocyte distribution width (RBC) [Ratio] 12.5 % Normal 11.5-15.0 [facility] Comment on above: Order Comment: No: D o not add to previous draw Performed By: #### 5 0608 #### [facility] [address] [place] [id number], [facility] Hematocrit (Bld) [Volume fraction] 27.1 % Low 39.0-50.0 [facility] Comment on above: Order Comment: No: D o not add to previous draw Performed By: #### 5 0608 #### [facility] [address] [place] [address], [facility] Hemoglobin (Bld) [Mass/Vol] 8.8 g/dL Low 13.0-17.0 [facility] Comment on above: Order Comment: No: D o not add to previous draw Performed By: #### 5 0608 #### [facility] [address] [place] [address], [place] MCH (RBC) [Entitic mass] 30.1 pg Normal 27.0-33.0 [facility] Comment on above: Order Comment: No: D o not add to previous draw Performed By: #### 5 0608 #### [facility] [address] [place] [address], [facility] MCHC (RBC) [Mass/Vol] 32.5 g/dL Normal 32.0-35.0 [facility] Comment on above: Order Comment: No: D o not add to previous draw Performed By: #### 5 0608 #### [facility] [address] [place] [address], [facility] MCV (RBC) [Entitic vol] 92.8 fL Normal 82.0-98.0 [facility] Comment on above: Order Comment: No: D o not add to previous draw Performed By: #### 5 0608 #### [facility] [address] [place] [address], [facility] Nucleated RBC/100 WBC (Bld) [Ratio] 0 % Normal 0-0 [facility] Comment on above: Order Comment: No: D o not add to previous draw Performed By: #### 5 0608 #### [facility] [address] [facility] [place] [address], [facility] PLAT CNT 147 10*3/uL Low 150-400 [facility] Comment on above: Order Comment: No: D o not add to previous draw Performed By: #### 5 0608 #### [facility] [address] [facility] [place] [address], [facility] RBC (Bld) [#/Vol] 2.92 10*6/uL Low 4.20-5.70 [facility] Comment on above: Order Comment: No: D o not add to previous draw Performed By: #### 5 0608 #### [facility] [address] [place] [address], [facility] WBC (Bld) [#/Vol] 6.78 10*3/uL Normal 4.00-10.60 [facility] Comment on above: Order Comment: No: D o not add to previous draw Performed By: #### 5 0608 #### [facility] [address] [place] [id number], [facility] MAGNESIUM BLOODon 07-16-2021 Magnesium [Mass/Vol] 2.0 mg/dL Normal 1.9-2.7 [facility] Comment on above: Order Comment: Pneum othorax Performed By: #### 4 1000, 53708, 19334 ####[facility] PHOSPHORUS BLOODon Phosphate [Mass/Vol] 3.5 mg/dL Normal 2.5-5.0 [facility] Comment on above: Order Comment: Pneum othorax Performed By: #### 4 1000, 79794, 44657 ####[facility] POC GLUCOSE LABon 07-16-2021 Glucose [Mass/Vol] 118 mg/dL High 70-100 [facility] Comment on above: Performed By: #### 8 5499 #### [facility] [address] PORTABLE CHEST 1 VIEWon 06-28 PORTABLE CHEST 1 VIEW [facility] Department of Radiology [address] [place] [address] Patient Name: ISRAEL DEVINE : 1950 Sex: M Age: Race: White Pt. Location: [place] [address] Patient Status: I Ordered Date: 07/16/2021 1:55:00 [...] pneumothorax. Electronically signed: Cece Kim. Transcribed by: [email or web address], User Resident: Electronically Signed by: CECE KIM @ 07/16/2021 02:28 PM Normal [facility] Comment on above: Order Comment: The A ptima SARS-CoV-2 assay is a nucleic acid amplification test intended for the qualitative detection of RNA from SARS-CoV-2 isolated and purified from nasopharyngeal (INSPECTOR OUTSIDE PRODUCTION),oropharyngeal (OP), nasal swab, sputum, and bronchoalveolar lavage (BAL) specimens from patients with signs and symptoms of infection who are suspected of COVID-19. Results are for the identification of SARS-CoV-2 RNA. The SARS-CoV-2 RNA is generally detectable during the acute phase of infection. The Aptima SARS-CoV-2 Assay on the [place] and [place] Fusion system is intended for use by laboratory personnel specifically instructed and trained in the operation of the [place] and [place] Fusion system. The Aptima SARS-CoV-2 assay is [...] and epidemiological information. PORTABLE CHEST 1 VIEW [facility] Department of Radiology [address] [place] [id number] Patient Name: ISRAEL DEVINE : 1950 Sex: M Age: Race: White Pt. Location: [place] [address] Patient Status: I Ordered Date: 07/16/2021 5:00:00 [...] effusion. Electronically signed: Cece Kim. Transcribed by: [email or web address], User Resident: Electronically Signed by: CECE KIM @ 07/16/2021 07:13 AM Normal [facility] Comment on above: Order Comment: Pneum othorax BASIC METABOLIC PANELon 06-28 Calcium [Mass/Vol] 7.6 mg/dL Low 8.6-10.3 [facility] Comment on above: Order Comment: No: D o not add to previous draw Performed By: #### 3 0965 #### [place] [address] [place] [address], [place] Chloride [Moles/Vol] 98 mmol/L Normal 98-107 [facility] Comment on above: Order Comment: No: D o not add to previous draw Performed By: #### 3 0965 #### [facility] [address] [place] [address], [place] CO2 [Moles/Vol] 28 mmol/L Normal 21-31 [facility] Comment on above: Order Comment: No: D o not add to previous draw Performed By: #### 3 0965 #### [facility] [address] [place] [address], [place] Creatinine [Mass/Vol] 0.78 mg/dL Normal 0.70-1.30 [facility] Comment on above: Order Comment: No: D o not add to previous draw Performed By: #### 3 0965 #### [facility] [address] [place] [address], [place] GFR/1.73 sq M.predicted among blacks MDRD (S/P/Bld) [Vol rate/Area] mL/min/{1.73_m2} Normal >60 [facility] Comment on above: Order Comment: No: D o not add to previous draw Result Comment: Calc ulation may not be valid for patients over 70 years Performed By: #### 3 0965 #### [facility] [address] [place] [address], [place] GFR/1.73 sq M.predicted among non-blacks MDRD (S/P/Bld) [Vol rate/Area] mL/min/{1.73_m2} Normal >60 [facility] Comment on above: Order Comment: No: D o not add to previous draw Result Comment: Calc ulation may not be valid for patients over 70 years Performed By: #### 3 0965 #### [facility] [address] [place] [address], [place] Glucose [Mass/Vol] 123 mg/dL High 70-100 [facility] Comment on above: Order Comment: No: D o not add to previous draw Performed By: #### 3 0965 #### [facility] [address] [place] [address], [place] Potassium [Moles/Vol] 4.4 mmol/L Normal 3.5-5.1 [facility] Comment on above: Order Comment: No: D o not add to previous draw Performed By: #### 3 0965 #### [facility] [address] [place] [address], [place] Sodium [Moles/Vol] 132 mmol/L Low 136-145 [facility] Comment on above: Order Comment: No: D o not add to previous draw Performed By: #### 3 0965 #### [facility] [address] [place] [address], [place] Urea nitrogen [Mass/Vol] 23 mg/dL Normal 7-25 [facility] Comment on above: Order Comment: No: D o not add to previous draw Performed By: #### 3 0965 #### [facility] [address] [place] [address], [facility] [facility] CBC COMPLETE BLOOD COUNTon 09-15-2020 Erythrocyte distribution width (RBC) [Ratio] 12.6 % Normal 11.5-15.0 [facility] Comment on above: Order Comment: No: D o not add to previous draw Performed By: #### 8 [id number] #### [facility] [address] [place] [address], [facility] Hematocrit (Bld) [Volume fraction] 25.3 % Low 39.0-50.0 [facility] Comment on above: Order Comment: No: D o not add to previous draw Performed By: #### 8 [id number] #### [facility] [address] [place] [address], [place] Hemoglobin (Bld) [Mass/Vol] 8.2 g/dL Low 13.0-17.0 [facility] Comment on above: Order Comment: No: D o not add to previous draw Performed By: #### 8 [id number] #### [facility] [address] [place] [address], [facility] IMM PLATELET FRAC 3.4 % Normal 0.8-6.3 [facility] Comment on above: Order Comment: No: D o not add to previous draw Performed By: #### 8 [id number] #### [facility] [address] [place] [address], [facility] MCH (RBC) [Entitic mass] 30.0 pg Normal 27.0-33.0 [facility] Comment on above: Order Comment: No: D o not add to previous draw Performed By: #### 8 [id number] #### [facility] [address] [facility] [place] [address], [facility] MCHC (RBC) [Mass/Vol] 32.4 g/dL Normal 32.0-35.0 [facility] Comment on above: Order Comment: No: D o not add to previous draw Performed By: #### 8 [id number] #### [facility] [address] [facility] [place] [place] [address], [facility] MCV (RBC) [Entitic vol] 92.7 fL Normal 82.0-98.0 [facility] Comment on above: Order Comment: No: D o not add to previous draw Performed By: #### 8 [id number] #### [facility] [address] [facility] Nucleated RBC/100 WBC (Bld) [Ratio] 0 % Normal 0-0 [facility] Comment on above: Order Comment: No: D o not add to previous draw Performed By: #### 8 [id number] #### [facility] [address] [place] [address], [facility] PLAT CNT 125 10*3/uL Low 150-400 [facility] Comment on above: Order Comment: No: D o not add to previous draw Performed By: #### 8 [id number] #### [facility] [address] [facility] [place] [address], [facility] RBC (Bld) [#/Vol] 2.73 10*6/uL Low 4.20-5.70 [facility] Comment on above: Order Comment: No: D o not add to previous draw Performed By: #### 8 [id number] #### [facility] [address] [place] [address], [facility] WBC (Bld) [#/Vol] 9.34 10*3/uL Normal 4.00-10.60 [facility] Comment on above: Order Comment: No: D o not add to previous draw Performed By: #### 8 [id number] #### [facility] [address] [place] [id number], [facility] MAGNESIUM BLOODon 07-15-2021 Magnesium [Mass/Vol] 2.0 mg/dL Normal 1.9-2.7 [facility] Comment on above: Order Comment: No: D o not add to previous draw Performed By: #### 3 0965 #### [facility] [address] [place] [address], [facility] PHOSPHORUS BLOODon Phosphate [Mass/Vol] 3.4 mg/dL Normal 2.5-5.0 [facility] Comment on above: Performed By: #### 3 0965 #### [facility] [address] [place] [address], [facility] POC GLUCOSE LABon 07-15-2021 Glucose [Mass/Vol] 127 mg/dL High 70-100 [facility] Comment on above: Performed By: #### 3 1595 #### [facility] [address] [place] [address], [place] Glucose [Mass/Vol] 146 mg/dL High 70-100 [facility] Comment on above: Performed By: #### 5 0608 #### [facility] [address] [place] [address], [facility] PORTABLE CHEST 1 VIEWon 12-1 PORTABLE CHEST 1 VIEW [facility] Department of Radiology [address] [place] [address] Patient Name: ISRAEL DEVINE : 1950 Sex: M Age: Race: White Pt. Location: [place] [address] Patient Status: I Ordered Date: 07/15/2021 5:00:00 [...] improvement Electronically signed: Kumar Ross. Transcribed by: [email or web address], User Resident: Electronically Signed by: KUMAR ROSS @ 07/16/2021 04:09 PM Normal [facility] Comment on above: Order Comment: The A ptima SARS-CoV-2 assay is a nucleic acid amplification test intended for the qualitative detection of RNA from SARS-CoV-2 isolated and purified from nasopharyngeal (INSPECTOR OUTSIDE PRODUCTION),oropharyngeal (OP), nasal swab, sputum, and bronchoalveolar lavage (BAL) specimens from patients with signs and symptoms of infection who are suspected of COVID-19. Results are for the identification of SARS-CoV-2 RNA. The SARS-CoV-2 RNA is generally detectable during the acute phase of infection. The Aptima SARS-CoV-2 Assay on the [place] [employer] system is intended for use by laboratory personnel specifically instructed and trained in the operation of the [place] [employer] [place] system. The Aptima SARS-CoV-2 assay is [...] information. BASIC METABOLIC PANELon 12-1 Calcium [Mass/Vol] 8.0 mg/dL Low 8.6-10.3 [facility] Comment on above: Order Comment: No: D o not add to previous draw Performed By: #### 3 0965 #### [facility] [address] [place] [address], [facility] Chloride [Moles/Vol] 101 mmol/L Normal 98-107 [facility] Comment on above: Order Comment: No: D o not add to previous draw Performed By: #### 3 0965 #### [facility] [address] [facility] [place] [place] [address], [facility] CO2 [Moles/Vol] 24 mmol/L Normal 21-31 [facility] Comment on above: Order Comment: No: D o not add to previous draw Performed By: #### 3 0965 #### [facility] [address] [facility] [place] [place] [address], [facility] Creatinine [Mass/Vol] 0.92 mg/dL Normal 0.70-1.30 [facility] Comment on above: Order Comment: No: D o not add to previous draw Performed By: #### 3 0965 #### [facility] [address] [place] [address], [place] GFR/1.73 sq M.predicted among blacks MDRD (S/P/Bld) [Vol rate/Area] mL/min/{1.73_m2} Normal >60 [facility] Comment on above: Order Comment: No: D o not add to previous draw Result Comment: Calc ulation may not be valid for patients over 70 years Performed By: #### 3 0965 #### [facility] [address] [place] [address], [place] GFR/1.73 sq M.predicted among non-blacks MDRD (S/P/Bld) [Vol rate/Area] mL/min/{1.73_m2} Normal >60 [facility] Comment on above: Order Comment: No: D o not add to previous draw Result Comment: Calc ulation may not be valid for patients over 70 years Performed By: #### 3 0965 #### [facility] [address] [place] [address], [place] Glucose [Mass/Vol] 120 mg/dL High 70-100 [facility] Comment on above: Order Comment: No: D o not add to previous draw Performed By: #### 3 0965 #### [facility] [address] [place] [address], [place] Potassium [Moles/Vol] 4.2 mmol/L Normal 3.5-5.1 [facility] Comment on above: Order Comment: No: D o not add to previous draw Performed By: #### 3 0965 #### [facility] [address] [place] [address], [place] Sodium [Moles/Vol] 134 mmol/L Low 136-145 [facility] Comment on above: Order Comment: No: D o not add to previous draw Performed By: #### 3 0965 #### [facility] [address] Urea nitrogen [Mass/Vol] 23 mg/dL Normal 7-25 [facility] Comment on above: Order Comment: No: D o not add to previous draw Performed By: #### 3 0965 #### [facility] [address] [place] [id number], [facility] CBC COMPLETE BLOOD COUNTon 09-14-2020 Erythrocyte distribution width (RBC) [Ratio] 12.7 % Normal 11.5-15.0 [facility] Comment on above: Order Comment: No: D o not add to previous draw Performed By: #### 8 [id number] #### [facility] [address] [place] [id number], [facility] Hematocrit (Bld) [Volume fraction] 30.5 % Low 39.0-50.0 [facility] Comment on above: Order Comment: No: D o not add to previous draw Performed By: #### 8 [id number] #### [facility] [address] [place] [id number], [facility] Hemoglobin (Bld) [Mass/Vol] 9.8 g/dL Low 13.0-17.0 [facility] Comment on above: Order Comment: No: D o not add to previous draw Performed By: #### 8 [id number] #### [facility] [address] [place] [address], [facility] MCH (RBC) [Entitic mass] 30.6 pg Normal 27.0-33.0 [facility] Comment on above: Order Comment: No: D o not add to previous draw Performed By: #### 8 [id number] #### [facility] [address] [place] [id number], [facility] MCHC (RBC) [Mass/Vol] 32.1 g/dL Normal 32.0-35.0 [facility] Comment on above: Order Comment: No: D o not add to previous draw Performed By: #### 8 [id number] #### [facility] [address] [place] [address], [facility] MCV (RBC) [Entitic vol] 95.3 fL Normal 82.0-98.0 [facility] Comment on above: Order Comment: No: D o not add to previous draw Performed By: #### 8 [id number] #### [facility] [address] [place] [address], [facility] Nucleated RBC/100 WBC (Bld) [Ratio] 0 % Normal 0-0 [facility] Comment on above: Order Comment: No: D o not add to previous draw Performed By: #### 8 [id number] #### [facility] [address] [place] [address], [facility] PLAT CNT 110 10*3/uL Low 150-400 [facility] Comment on above: Order Comment: No: D o not add to previous draw Performed By: #### 8 [id number] #### [facility] [address] [place] [address], [facility] RBC (Bld) [#/Vol] 3.20 10*6/uL Low 4.20-5.70 [facility] Comment on above: Order Comment: No: D o not add to previous draw Performed By: #### 8 [id number] #### [facility] [address] [place] [address], [facility] WBC (Bld) [#/Vol] 11.71 10*3/uL High 4.00-10.60 [facility] Comment on above: Order Comment: No: D o not add to previous draw Performed By: #### 8 [id number] #### [facility] [address] [facility] [place] [id number], [facility] MAGNESIUM BLOODon 07-14-2021 Magnesium [Mass/Vol] 2.1 mg/dL Normal 1.9-2.7 [facility] Comment on above: Order Comment: No: D o not add to previous draw Performed By: #### 3 0738 #### [facility] [address] [place] [address], [facility] PHOSPHORUS BLOODon Phosphate [Mass/Vol] 1.6 mg/dL Low 2.5-5.0 [facility] Comment on above: Order Comment: No: D o not add to previous draw Performed By: #### 3 0738 #### [facility] [address] [place] [address], [facility] POC GLUCOSE LABon 07-14-2021 Glucose [Mass/Vol] 156 mg/dL High 70-100 [facility] Comment on above: Performed By: #### 3 1595 #### [facility] [address] [place] [address], [facility] Glucose [Mass/Vol] 158 mg/dL High 70-100 [facility] Comment on above: Performed By: #### 3 1595 #### [facility] [address] [place] [address], [facility] Glucose [Mass/Vol] 149 mg/dL High 70-100 [facility] Comment on above: Performed By: #### 5 0608 #### [facility] [address] [place] [address], [facility] Glucose [Mass/Vol] 156 mg/dL High 70-100 [facility] Comment on above: Performed By: #### 5 0608 #### [facility] [address] [facility] [place] [address], [facility] PORTABLE CHEST 1 VIEWon 06-28 PORTABLE CHEST 1 VIEW [facility] Department of Radiology [address] [place] [address] Patient Name: ISRAEL DEVINE : 1950 Sex: M Age: Race: White Pt. Location: [place] [address] Patient Status: I Ordered Date: 07/14/2021 5:00:00 [...] base. Electronically signed: Gretta Perkins. Transcribed by: [email or web address], User Resident: Electronically Signed by: GRETTA PERKINS @ 07/14/2021 07:18 AM Normal [facility] Comment on above: Order Comment: evalu ate for Pneumothorax POTASSIUM BLOODon 07-14-2021 Potassium [Moles/Vol] 3.8 mmol/L Normal 3.5-5.1 [facility] Comment on above: Order Comment: Pneum othorax Performed By: #### 4 1406 ####[facility] [place] [address], [facility] APTTon 07-13-2021 aPTT Coag (Bld) [Time] 34.0 s Normal 25.0-35.0 [facility] Comment on above: Order Comment: No: [...] PURPOSE. Performed By: #### 5 0608 #### [facility] [address] ARTERIAL BLOOD GAS WITH ICAo n 07-13-2021 BASE EXCESS -1 mmol/L Normal -2-3 [facility] Comment on above: Performed By: #### 8 [id number] #### [facility] [address] [facility] [place] [place] [address], [facility] DEL[employer]ERY SYSTEMS NASAL CANNULA Normal [facility] Comment on above: Performed By: #### 8 [id number] #### [facility] [address] [place] [address], [facility] HCO3 (Bld) [Moles/Vol] 24 mmol/L Normal 21-28 [facility] Comment on above: Performed By: #### 8 [id number] #### [facility] [address] [facility] [place] [address], [facility] IONIZED CALCIUM 1.17 mmol/L Normal 1.13-1.32 [facility] Comment on above: Performed By: #### 8 [id number] #### [facility] [address] [place] [address], [facility] LPM 2.0 LPM Normal [facility] Comment on above: Performed By: #### 8 [id number] #### [facility] [address] [place] [address], [facility] Oxygen (Bld) [Partial pressure] 96 mm[Hg] Normal 83-108 [facility] Comment on above: Performed By: #### 8 [id number] #### [facility] [address] [place] [address], [facility] Oxygen saturation in Blood 96.5 % Normal 94.0-97.0 [facility] Comment on above: Performed By: #### 8 [id number] #### [facility] [address] [place] [address], [place] PCO2 38 mmHg Normal 35-45 [facility] Comment on above: Performed By: #### 8 [id number] #### [facility] [address] [place] [address], [facility] pH (Bld) 7.40 [pH] Normal 7.35-7.45 [facility] Comment on above: Performed By: #### 8 [id number] #### [facility] [address] [place] [address], [facility] BASIC METABOLIC PANELon 12- Calcium [Mass/Vol] 8.1 mg/dL Low 8.6-10.3 [facility] Comment on above: Order Comment: No: D o not add to previous draw Performed By: #### 5 0608 #### [facility] [address] [place] [address], [place] Chloride [Moles/Vol] 108 mmol/L High 98-107 [facility] Comment on above: Order Comment: No: D o not add to previous draw Performed By: #### 5 0608 #### [facility] [address] [place] [address], [place] CO2 [Moles/Vol] 24 mmol/L Normal 21-31 [facility] Comment on above: Order Comment: No: D o not add to previous draw Performed By: #### 5 0608 #### [facility] [address] [place] [address], [place] Creatinine [Mass/Vol] 1.00 mg/dL Normal 0.70-1.30 [facility] Comment on above: Order Comment: No: D o not add to previous draw Performed By: #### 5 0608 #### [facility] [address] [place] [address], [place] GFR/1.73 sq M.predicted among blacks MDRD (S/P/Bld) [Vol rate/Area] mL/min/{1.73_m2} Normal >60 [facility] Comment on above: Order Comment: No: D o not add to previous draw Result Comment: Calc ulation may not be valid for patients over 70 years Performed By: #### 5 0608 #### [facility] [address] [place] [address], [place] GFR/1.73 sq M.predicted among non-blacks MDRD (S/P/Bld) [Vol rate/Area] mL/min/{1.73_m2} Normal >60 [facility] Comment on above: Order Comment: No: D o not add to previous draw Result Comment: Calc ulation may not be valid for patients over 70 years Performed By: #### 5 0608 #### [facility] [address] [place] [address], [place] Glucose [Mass/Vol] 118 mg/dL High 70-100 [facility] Comment on above: Order Comment: No: D o not add to previous draw Performed By: #### 5 0608 #### [facility] [address] [place] [address], [place] Potassium [Moles/Vol] 4.3 mmol/L Normal 3.5-5.1 [facility] Comment on above: Order Comment: No: D o not add to previous draw Performed By: #### 5 0608 #### [facility] [address] [place] [address], [place] Sodium [Moles/Vol] 139 mmol/L Normal 136-145 [facility] Comment on above: Order Comment: No: D o not add to previous draw Performed By: #### 5 0608 #### [facility] [address] [place] [address], [place] Urea nitrogen [Mass/Vol] 20 mg/dL Normal 7-25 [facility] Comment on above: Order Comment: No: D o not add to previous draw Performed By: #### 5 0608 #### [facility] [address] [place] [address], [facility] CBC COMPLETE BLOOD COUNTon 09-13-2020 Erythrocyte distribution width (RBC) [Ratio] 12.8 % Normal 11.5-15.0 [facility] Comment on above: Order Comment: No: D o not add to previous draw Performed By: #### 8 [id number] #### [facility] [address] [place] [address], [facility] Hematocrit (Bld) [Volume fraction] 30.3 % Low 39.0-50.0 [facility] Comment on above: Order Comment: No: D o not add to previous draw Performed By: #### 8 [id number] #### [facility] [address] [place] [address], [facility] Hemoglobin (Bld) [Mass/Vol] 10.1 g/dL Low 13.0-17.0 [facility] Comment on above: Order Comment: No: D o not add to previous draw Performed By: #### 8 [id number] #### [facility] [address] [place] [address], [place] MCH (RBC) [Entitic mass] 30.6 pg Normal 27.0-33.0 [facility] Comment on above: Order Comment: No: D o not add to previous draw Performed By: #### 8 [id number] #### [facility] [address] [place] [address], [place] MCHC (RBC) [Mass/Vol] 33.3 g/dL Normal 32.0-35.0 [facility] Comment on above: Order Comment: No: D o not add to previous draw Performed By: #### 8 [id number] #### [facility] [address] [place] [address], [place] MCV (RBC) [Entitic vol] 91.8 fL Normal 82.0-98.0 [facility] Comment on above: Order Comment: No: D o not add to previous draw Performed By: #### 8 [id number] #### [facility] [address] [place] [address], [facility] Nucleated RBC/100 WBC (Bld) [Ratio] 0 % Normal 0-0 [facility] Comment on above: Order Comment: No: D o not add to previous draw Performed By: #### 8 [id number] #### [facility] [address] [place] [address], [place] PLAT CNT 152 10*3/uL Normal 150-400 [facility] Comment on above: Order Comment: No: D o not add to previous draw Performed By: #### 8 [id number] #### [facility] [address] [place] [address], [facility] RBC (Bld) [#/Vol] 3.30 10*6/uL Low 4.20-5.70 [facility] Comment on above: Order Comment: No: D o not add to previous draw Performed By: #### 8 [id number] #### [facility] [address] [place] [address], [facility] WBC (Bld) [#/Vol] 10.66 10*3/uL High 4.00-10.60 [facility] Comment on above: Order Comment: No: D o not add to previous draw Performed By: #### 8 [id number] #### [facility] [address] [place] [address], [facility] LACTATE BLOODon 07-13-2021 Lactate [Moles/Vol] 1.0 mmol/L Normal .5-2.2 [facility] Comment on above: Order Comment: Pneum othorax Performed By: #### 1 0054 ####[facility] [id number], [facility] MAGNESIUM BLOODon 07-13-2021 Magnesium [Mass/Vol] 2.2 mg/dL Normal 1.9-2.7 [facility] Comment on above: Order Comment: No: D o not add to previous draw Performed By: #### 5 0608 #### [facility] [address] [place], [place] [address] Operative Reporton Operative Report MR#: [id number] I [facility] Pt. Name: Israel Devine Room #: [id number] Discharge Date: Birthdate: 1950 OPERATIVE REPORT DATE [...] device. 4. Independent interpretation of transesophageal echocardiogram. BIOLOGY INTERN: Mason. ANESTHESIA: General with endotracheal intubation. ANESTHESIOLOGIST: [...] P/Singh Dotson MD Date Trans: 07/12/2021 11:51 P/mmo [id number] cc: Deb Klein M.D. [address], [place] [facility] [id number] Normal [facility] PHOSPHORUS BLOODon Phosphate [Mass/Vol] 3.0 mg/dL Normal 2.5-5.0 [facility] Comment on above: Order Comment: No: D o not add to previous draw Performed By: #### 5 0608 #### [facility] [address] [place] [address], [facility] POC GLUCOSE LABon 07-13-2021 Glucose [Mass/Vol] 146 mg/dL High 70-100 [facility] Comment on above: Performed By: #### 5 0608 #### [facility] [address] [facility] [place] [address], [place] Glucose [Mass/Vol] 132 mg/dL High 70-100 [facility] Comment on above: Performed By: #### 8 [id number] #### [facility] [address] [place] [address], [place] Glucose [Mass/Vol] 88 mg/dL Normal 70-100 [facility] Comment on above: Performed By: #### 5 0608 #### [facility] [address] [facility] [place] [address], [place] Glucose [Mass/Vol] 96 mg/dL Normal 70-100 [facility] Comment on above: Performed By: #### 5 0608 #### [facility] [address] [facility] [place] [address], [place] Glucose [Mass/Vol] 125 mg/dL High 70-100 [facility] Comment on above: Performed By: #### 8 [id number] #### [facility] [address] [facility] [place] [address], [place] Glucose [Mass/Vol] 121 mg/dL High 70-100 [facility] Comment on above: Performed By: #### 3 1595 #### [facility] [address] [place] [address], [place] Glucose [Mass/Vol] 133 mg/dL High 70-100 [facility] Comment on above: Performed By: #### 5 0608 #### [facility] [address] [place] [address], [place] Glucose [Mass/Vol] 98 mg/dL Normal 70-100 [facility] Comment on above: Performed By: #### [id number] #### [facility] [address] [place] [address], [place] Glucose [Mass/Vol] 90 mg/dL Normal 70-100 [facility] Comment on above: Performed By: #### [id number] #### [facility] [address] [place] [address], [place] PORTABLE CHEST [facility] 1 [facility] Department of Radiology [address] [place] [id number] Patient Name: ISRAEL DEVINE : 1950 Sex: M Age: Race: White Pt. Location: [place] [address] Patient Status: I Ordered Date: 07/13/2021 7:00:00 [...] base. Electronically signed: Gretta Perkins. Transcribed by: [email or web address], User Resident: Electronically Signed by: GRETTA PERKINS @ 07/13/2021 07:44 AM Normal [facility] Comment on above: Order Comment: The A ptima SARS-CoV-2 assay is a nucleic acid amplification test intended for the qualitative detection of RNA from SARS-CoV-2 isolated and purified from nasopharyngeal (INSPECTOR OUTSIDE PRODUCTION),oropharyngeal (OP), nasal swab, sputum, and bronchoalveolar lavage (BAL) specimens from patients with signs and symptoms of infection who are suspected of COVID-19. Results are for the identification of SARS-CoV-2 RNA. The SARS-CoV-2 RNA is generally detectable during the acute phase of infection. The Aptima SARS-CoV-2 Assay on the [place] [employer] [place] [employer] system is intended for use by laboratory personnel specifically instructed and trained in the operation of the [place] [employer] [place] [employer] system. The Aptima SARS-CoV-2 assay is [...] [Relative time] 1.28 {INR} High 0.91-1.16 [facility] Comment on above: Order Comment: No: [...] 1995;108:[id number]. Performed By: #### 5 0608 #### [facility] [address] PT Coag (PPP) [Time] 16.0 s High 12.3-14.8 [facility] Comment on above: Order Comment: No: D o not add to previous draw Result Comment: ALL RESULTS MUST BE INTERPRETED WITH RESPECT TO BLOOD DRAWING ARTIFACT OR DILUTION ERROR OF ANTICOAGULANT AT THE TIME OF SAMPLING. Performed By: #### 5 0608 #### [facility] [address] [place] [address], [place] ACTIVATED CLOTTING TIMEon ACTIVATED CLOTTING TIME 126 sec Normal 82-152 [facility] Comment on above: Performed By: #### 3 1792 #### [facility] [address] [place] [address], [place] ACTIVATED CLOTTING TIME 120 sec Normal 82-152 [facility] Comment on above: Performed By: #### 3 1595 #### [facility] [address] [place] [address], [place] ACTIVATED CLOTTING TIME 603 sec High 82-152 [facility] Comment on above: Performed By: #### 3 1595 #### [facility] [address] [place] [address], [place] ACTIVATED CLOTTING TIME 603 sec High 82-152 [facility] Comment on above: Performed By: #### 3 1595 #### [facility] [address] [place] [address], [place] ACTIVATED CLOTTING TIME 464 sec High 82-152 [facility] Comment on above: Performed By: #### 8 [id number] #### [facility] [address] [place] [address], [place] ACTIVATED CLOTTING TIME 664 sec High 82-152 [facility] Comment on above: Performed By: #### 8 [id number] #### [facility] [address] [place] [address], [place] ACTIVATED CLOTTING TIME 609 sec High 82-152 [facility] Comment on above: Performed By: #### 8 [id number] #### [facility] [address] [place] [address], [place] ACTIVATED CLOTTING TIME 144 sec Normal 82-152 [facility] Comment on above: Performed By: #### 8 [id number] #### [facility] [address] [place] [address], [place] APTTon 07-12-2021 aPTT Coag (Bld) [Time] 47.7 s High 25.0-35.0 [facility] Comment on above: Order Comment: No: [...] PURPOSE. Performed By: #### 5 0608 #### [facility] [address] aPTT Coag (Bld) [Time] 35.9 s High 25.0-35.0 [facility] Comment on above: Result Comment: ALL [...] PURPOSE. Performed By: #### 5 0608 #### [facility] [address] [facility] ARTERIAL BLOOD GAS WITH ICAo n 07-12-2021 BASE EXCESS -3 mmol/L Low -2-3 [facility] Comment on above: Performed By: #### 3 0738 #### [facility] [address] [facility] [place] [address], [facility] HCO3 (Bld) [Moles/Vol] 23 mmol/L Normal 21-28 [facility] Comment on above: Performed By: #### 3 0738 #### [facility] [address] [facility] [place] [place] [address], [facility] MIN VOLUME 14.0 Normal [facility] Comment on above: Performed By: #### 3 0738 #### [facility] [address] [facility] [place] [address], [facility] MODALITY SIMV Normal [facility] Comment on above: Performed By: #### 3 0738 #### [facility] [address] [place] [address], [facility] Oxygen (Bld) [Partial pressure] 120 mm[Hg] Critically high 83-108 [facility] Comment on above: Performed By: #### 3 0738 #### [facility] [address] [facility]. [address] Oxygen saturation in Blood 98.1 % High 94.0-97.0 [facility] Comment on above: Performed By: #### 3 0738 #### [facility] [address] [place] [address], [facility] PCO2 44 mmHg Normal 35-45 [facility] Comment on above: Performed By: #### 3 0738 #### [facility] [address] [facility]. [address] PF RATIO 240 mmHg Normal [facility] Comment on above: Performed By: #### 3 0738 #### [facility] [address] [place] [address], [facility] pH (Bld) 7.33 [pH] Low 7.35-7.45 [facility] Comment on above: Performed By: #### 3 0738 #### [facility] [address] [facility]. [address] Respiratory rate 18 /min Normal [facility] Comment on above: Performed By: #### 3 0738 #### [facility] [address] [facility] TIDAL VOLUME (VT) CC 600 Normal [facility] Comment on above: Performed By: #### 3 0738 #### [facility] [address] BASE EXCESS -6 mmol/L Low -2-3 [facility] Comment on above: Performed By: #### 3 0738 #### [facility] [address] [place] [address], [facility] DELIVERY SYSTEMS MV Normal [facility] Comment on above: Performed By: #### 3 0738 #### [facility] [address] [place] [address], [place] FIO2 50 % Normal [facility] Comment on above: Performed By: #### 3 0738 #### [facility] [address] [place] [address], [place] HCO3 (Bld) [Moles/Vol] 21 mmol/L Normal 21-28 [facility] Comment on above: Performed By: #### 3 0738 #### [facility] [address] [place] [address], [place] IONIZED CALCIUM 1.14 mmol/L Normal 1.13-1.32 [facility] Comment on above: Performed By: #### 3 0738 #### [facility] [address] [place] [address], [place] MIN VOLUME 6.4 Normal [facility] Comment on above: Performed By: #### 3 0738 #### [facility] [address] [place] [address], [place] MODALITY AC Normal [facility] Comment on above: Performed By: #### 3 0738 #### [facility] [address] [place] [address], [place] Oxygen (Bld) [Partial pressure] 90 mm[Hg] Normal 83-108 [facility] Comment on above: Performed By: #### 3 0738 #### [facility] [address] [place] [address], [place] Oxygen saturation in Blood 95.8 % Normal 94.0-97.0 [facility] Comment on above: Performed By: #### 3 0738 #### [facility] [address] [place] [address], [facility] PCO2 46 mmHg High 35-45 [facility] Comment on above: Performed By: #### 3 0738 #### [facility] [address] [place] [address], [facility] PEEP 8.0 CMH20 Normal [facility] Comment on above: Performed By: #### 3 0738 #### [facility] [address] [place] [address], [facility] PF RATIO 180 mmHg Normal [facility] Comment on above: Performed By: #### 3 0738 #### [facility] [address] [place] [address], [facility] pH (Bld) 7.27 [pH] Low 7.35-7.45 [facility] Comment on above: Performed By: #### 3 0738 #### [facility] [address] [place] [address], [facility] PRESSURE SUPPORT 10 Normal [facility] Comment on above: Performed By: #### 3 0738 #### [facility] [address] [place] [address], [facility] Respiratory rate 14 /min Normal [facility] Comment on above: Performed By: #### 3 0738 #### [facility] [address] [place] [address], [facility] TIDAL VOLUME (VT) CC 450 Normal [facility] Comment on above: Performed By: #### 3 0738 #### [facility] [address] [place] [address], [facility] IONIZED CALCIUM 1.06 mmol/L Low 1.12-1.32 [facility] Comment on above: Performed By: #### 3 0738 #### [facility] [address] [place] [address], [facility] Performed By: #### 8 [id number] #### [facility] [address] [place] [address], [place] BASIC METABOLIC PANELon 12- Calcium [Mass/Vol] 8.8 mg/dL Normal 8.6-10.3 [facility] Comment on above: Order Comment: No: D o not add to previous draw Performed By: #### 3 0965 #### [facility] [address] [place] [address], [place] Chloride [Moles/Vol] 110 mmol/L High 98-107 [facility] Comment on above: Order Comment: No: D o not add to previous draw Performed By: #### 3 0965 #### [facility] [address] [place] [address], [place] CO2 [Moles/Vol] 24 mmol/L Normal 21-31 [facility] Comment on above: Order Comment: No: D o not add to previous draw Performed By: #### 3 0965 #### [facility] [address] [place] [address], [place] Creatinine [Mass/Vol] 0.94 mg/dL Normal 0.70-1.30 [facility] Comment on above: Order Comment: No: D o not add to previous draw Performed By: #### 3 0965 #### [facility] [address] [place] [address], [place] GFR/1.73 sq M.predicted among blacks MDRD (S/P/Bld) [Vol rate/Area] mL/min/{1.73_m2} Normal >60 [facility] Comment on above: Order Comment: No: D o not add to previous draw Result Comment: Calc ulation may not be valid for patients over 70 years Performed By: #### 3 0965 #### [facility] [address] [place] [address], [place] GFR/1.73 sq M.predicted among non-blacks MDRD (S/P/Bld) [Vol rate/Area] mL/min/{1.73_m2} Normal >60 [facility] Comment on above: Order Comment: No: D o not add to previous draw Result Comment: Calc ulation may not be valid for patients over 70 years Performed By: #### 3 0965 #### [facility] [address] [place] [address], [place] Glucose [Mass/Vol] 132 mg/dL High 70-100 [facility] Comment on above: Order Comment: No: D o not add to previous draw Performed By: #### 3 0965 #### [facility] [address] [place] [address], [place] Potassium [Moles/Vol] 4.5 mmol/L Normal 3.5-5.1 [facility] Comment on above: Order Comment: No: D o not add to previous draw Performed By: #### 3 0965 #### [facility] [address] [place] [address], [place] Sodium [Moles/Vol] 141 mmol/L Normal 136-145 [facility] Comment on above: Order Comment: No: D o not add to previous draw Performed By: #### 3 0965 #### [facility] [address] [place] [address], [place] Urea nitrogen [Mass/Vol] 18 mg/dL Normal 7-25 [facility] Comment on above: Order Comment: No: D o not add to previous draw Performed By: #### 3 0965 #### [facility] [address] [place] [address], [place] Calcium [Mass/Vol] 7.7 mg/dL Low 8.6-10.3 [facility] Comment on above: Performed By: #### 3 0965 #### [facility] [address] [place] [address], [place] Chloride [Moles/Vol] 108 mmol/L High 98-107 [facility] Comment on above: Performed By: #### 3 0965 #### [facility] [address] [place] [address], [place] CO2 [Moles/Vol] 22 mmol/L Normal 21-31 [facility] Comment on above: Performed By: #### 3 0965 #### [facility] [address] [place] [address], [place] Creatinine [Mass/Vol] 0.90 mg/dL Normal 0.70-1.30 [facility] Comment on above: Performed By: #### 3 0965 #### [facility] [address] [place] [address], [place] Urea nitrogen [Mass/Vol] 20 mg/dL Normal 7-25 [facility] Comment on above: Performed By: #### 3 0965 #### [facility] [address] [place] [address], [place] Glucose [Mass/Vol] 159 mg/dL High 70-105 [facility] Comment on above: Performed By: #### 3 0965 #### [facility] [address] [place] [address], [place] Performed By: #### 3 0738 #### [facility] [address] [place] [address], [place] Potassium [Moles/Vol] 3.3 mmol/L Low 3.5-4.9 [facility] Comment on above: Performed By: #### 3 0965 #### [facility] [address] [place] [address], [place] Performed By: #### 8 5499 #### [facility] [address] [place] [address], [place] Sodium [Moles/Vol] 140 mmol/L Normal 138-146 [facility] Comment on above: Performed By: #### 3 0965 #### [facility] [address] [place] [address], [place] Performed By: #### 3 1792 #### [facility] [address] Performed By: #### 8 [id number] #### [facility] [address] [facility] [address] CBC COMPLETE BLOOD COUNTon 09-12-2020 Erythrocyte distribution width (RBC) [Ratio] 12.8 % Normal 11.5-15.0 [facility] Comment on above: Order Comment: No: D o not add to previous draw Performed By: #### 5 0608 #### [facility] [address] [place] [address], [facility] Hematocrit (Bld) [Volume fraction] 31.0 % Low 39.0-50.0 [facility] Comment on above: Order Comment: No: D o not add to previous draw Performed By: #### 5 0608 #### [facility] [address] Hemoglobin (Bld) [Mass/Vol] 10.4 g/dL Low 13.0-17.0 [facility] Comment on above: Order Comment: No: D o not add to previous draw Performed By: #### 5 0608 #### [facility] [address] [place] [address], [facility] MCH (RBC) [Entitic mass] 31.0 pg Normal 27.0-33.0 [facility] Comment on above: Order Comment: No: D o not add to previous draw Performed By: #### 5 0608 #### [facility] [address] [place] [address], [facility] MCHC (RBC) [Mass/Vol] 33.5 g/dL Normal 32.0-35.0 [facility] Comment on above: Order Comment: No: D o not add to previous draw Performed By: #### 5 0608 #### [facility] [address] [place] [address], [facility] MCV (RBC) [Entitic vol] 92.3 fL Normal 82.0-98.0 [facility] Comment on above: Order Comment: No: D o not add to previous draw Performed By: #### 5 0608 #### [facility] [address] [place] [id number], [facility] Nucleated RBC/100 WBC (Bld) [Ratio] 0 % Normal 0-0 [facility] Comment on above: Order Comment: No: D o not add to previous draw Performed By: #### 5 0608 #### [facility] [address] [place] [id number], [facility] Performed By: #### 8 [id number] #### [facility] [address] [place] [address], [place] PLAT CNT 162 10*3/uL Normal 150-400 [facility] Comment on above: Order Comment: No: D o not add to previous draw Performed By: #### 5 0608 #### [facility] [address] [place] [id number], [facility] RBC (Bld) [#/Vol] 3.36 10*6/uL Low 4.20-5.70 [facility] Comment on above: Order Comment: No: D o not add to previous draw Performed By: #### 5 0608 #### [facility] [address] [place] [id number], [facility] WBC (Bld) [#/Vol] 11.92 10*3/uL High 4.00-10.60 [facility] Comment on above: Order Comment: No: D o not add to previous draw Performed By: #### 5 0608 #### [facility] [address] [place] [address], [place] Erythrocyte distribution width (RBC) [Ratio] 12.2 % Normal 11.5-15.0 [facility] Comment on above: Performed By: #### 8 [id number] #### [facility] [address] Hematocrit (Bld) [Volume fraction] 28.9 % Low 39.0-50.0 [facility] Comment on above: Performed By: #### 8 [id number] #### [facility] [address] [facility] [place] [address], [facility] Hemoglobin (Bld) [Mass/Vol] 9.4 g/dL Low 13.0-17.0 [facility] Comment on above: Performed By: #### 8 [id number] #### [facility] [address] [place] [address], [facility] MCH (RBC) [Entitic mass] 30.6 pg Normal 27.0-33.0 [facility] Comment on above: Performed By: #### 8 [id number] #### [facility] [address] [facility] [address] MCHC (RBC) [Mass/Vol] 32.5 g/dL Normal 32.0-35.0 [facility] Comment on above: Performed By: #### 8 [id number] #### [facility] [address] [place] [address], [facility] MCV (RBC) [Entitic vol] 94.1 fL Normal 82.0-98.0 [facility] Comment on above: Performed By: #### 8 [id number] #### [facility] [address] [place] [address], [facility] PLAT CNT 129 10*3/uL Low 150-400 [facility] Comment on above: Performed By: #### 8 [id number] #### [facility] [address] [place] [address], [facility] RBC (Bld) [#/Vol] 3.07 10*6/uL Low 4.20-5.70 [facility] Comment on above: Performed By: #### 8 [id number] #### [facility] [address] [place] [address], [facility] WBC (Bld) [#/Vol] 12.08 10*3/uL High 4.00-10.60 [facility] Comment on above: Performed By: #### 8 [id number] #### [facility] [address] [place] [id number], [facility] LACTATE BLOODon 07-12-2021 Lactate [Moles/Vol] 2.0 mmol/L Normal .5-2.2 [facility] Comment on above: Order Comment: Pneum othorax Performed By: #### 1 0054 ####[facility] [place] [address], [facility] Lactate [Moles/Vol] 1.9 mmol/L Normal .5-2.2 [facility] Comment on above: Performed By: #### 8 [id number] #### [facility] [address] [place] [id number], [facility] MAGNESIUM BLOODon 07-12-2021 Magnesium [Mass/Vol] 2.3 mg/dL Normal 1.9-2.7 [facility] Comment on above: Order Comment: No: D o not add to previous draw Performed By: #### 3 0965 #### [facility] [address] [place] [id number], [facility] Magnesium [Mass/Vol] 2.8 mg/dL High 1.9-2.7 [facility] Comment on above: Performed By: #### 3 0965 #### [facility] [address] [place] [address], [facility] PERFUSION BLOOD PANELon 06-28 BASE EXCESS -4.0 mmol/L Low -2.0-3.0 [facility] Comment on above: Performed By: #### 3 0738 #### [facility] [address] [place] [address], [facility] Hematocrit (Bld) [Volume fraction] 26 % Low 38-51 [facility] Comment on above: Performed By: #### 3 0738 #### [facility] [address] [place] [address], [facility] Hemoglobin (Bld) [Mass/Vol] 8.8 g/dL Low 12.0-17.0 [facility] Comment on above: Performed By: #### 3 0738 #### [facility] [address] [place] [address], [facility] IONIZED CALCIUM 1.16 mmol/L Normal 1.12-1.32 [facility] Comment on above: Performed By: #### 3 0738 #### [facility] [address] [facility] [address], [facility] Oxygen (Bld) [Partial pressure] 89.0 mm[Hg] Normal 80.0-105.0 [facility] Comment on above: Performed By: #### 3 0738 #### [facility] [address] [facility] [place] [address], [facility] PCO2 40.5 mmHg Normal 35.0-45.0 [facility] Comment on above: Performed By: #### 3 0738 #### [facility] [address] [place] [address], [facility] pH (Bld) 7.34 [pH] Low 7.35-7.45 [facility] Comment on above: Performed By: #### 3 0738 #### [facility] [address] [place] [address], [facility] Potassium [Moles/Vol] 3.2 mmol/L Low 3.5-4.9 [facility] Comment on above: Performed By: #### 3 0738 #### [facility] [address] [place] [id number], [facility] Sodium [Moles/Vol] 142 mmol/L Normal 138-146 [facility] Comment on above: Performed By: #### 3 0738 #### [facility] [address] [place] [address], [facility] BASE EXCESS -4.0 mmol/L Low -2.0-3.0 [facility] Comment on above: Performed By: #### 8 [id number] #### [facility] [address] [place] [address], [facility] Glucose [Mass/Vol] 157 mg/dL High 70-105 [facility] Comment on above: Performed By: #### 8 [id number] #### [facility] [address] [place] [address], [facility] Hematocrit (Bld) [Volume fraction] 26 % Low 38-51 [facility] Comment on above: Performed By: #### 8 [id number] #### [facility] [address] [place] [address], [facility] Hemoglobin (Bld) [Mass/Vol] 8.8 g/dL Low 12.0-17.0 [facility] Comment on above: Performed By: #### 8 [id number] #### [facility] [address] [place] [address], [facility] IONIZED CALCIUM 1.21 mmol/L Normal 1.12-1.32 [facility] Comment on above: Performed By: #### 8 [id number] #### [facility] [address] [place] [address], [facility] Oxygen (Bld) [Partial pressure] 62.0 mm[Hg] Low 80.0-105.0 [facility] Comment on above: Performed By: #### 8 [id number] #### [facility] [address] [place] [address], [facility] PCO2 40.8 mmHg Normal 35.0-45.0 [facility] Comment on above: Performed By: #### 8 [id number] #### [facility] [address] [place] [address], [place] pH (Bld) 7.34 [pH] Low 7.35-7.45 [facility] Comment on above: Performed By: #### [id number] #### [facility] [address] [place] [address], [facility] Sodium [Moles/Vol] 142 mmol/L Normal 138-146 [facility] Comment on above: Performed By: #### [id number] #### [facility] [address] [place] [address], [facility] BASE EXCESS 2.0 mmol/L Normal -2.0-3.0 [facility] Comment on above: Performed By: #### [id number] #### [facility] [address] [place] [address], [facility] Glucose [Mass/Vol] 152 mg/dL High 70-105 [facility] Comment on above: Performed By: #### 3 1791 #### [facility] [address] [place] [address], [facility] Hematocrit (Bld) [Volume fraction] 28 % Low 38-51 [facility] Comment on above: Performed By: #### 3 1791 #### [facility] [address] [place] [address], [facility] Hemoglobin (Bld) [Mass/Vol] 9.5 g/dL Low 12.0-17.0 [facility] Comment on above: Performed By: #### 3 1791 #### [facility] [address] [place] [address], [facility] IONIZED CALCIUM 1.03 mmol/L Low 1.12-1.32 [facility] Comment on above: Performed By: #### 3 179 #### [facility] [address] [place] [id number], [facility] Oxygen (Bld) [Partial pressure] 509.0 mm[Hg] High 80.0-105.0 [facility] Comment on above: Performed By: #### 3 179 #### [facility] [address] [place] [address], [place] PCO2 41.3 mmHg Normal 35.0-45.0 [facility] Comment on above: Performed By: #### 3 1792 #### [facility] [address] [place] [address], [place] pH (Bld) 7.42 [pH] Normal 7.35-7.45 [facility] Comment on above: Performed By: #### 3 179 #### [facility] [address] [place] [address], [place] Potassium [Moles/Vol] 4.2 mmol/L Normal 3.5-4.9 [facility] Comment on above: Performed By: #### 3 1792 #### [facility] [address] [place] [address], [place] Sodium [Moles/Vol] 139 mmol/L Normal 138-146 [facility] Comment on above: Performed By: #### 3 1792 #### [facility] [address] [place] [address], [place] BASE EXCESS 3.0 mmol/L Normal -2.0-3.0 [facility] Comment on above: Performed By: #### 8 [id number] #### [facility] [address] [place] [address], [place] Glucose [Mass/Vol] 165 mg/dL High 70-105 [facility] Comment on above: Performed By: #### 8 [id number] #### [facility] [address] [place] [address], [place] Hematocrit (Bld) [Volume fraction] 29 % Low 38-51 [facility] Comment on above: Performed By: #### 8 [id number] #### [facility] [address] [place] [address], [place] Hemoglobin (Bld) [Mass/Vol] 9.9 g/dL Low 12.0-17.0 [facility] Comment on above: Performed By: #### 8 [id number] #### [facility] [address] [place] [address], [facility] Oxygen (Bld) [Partial pressure] 452.0 mm[Hg] High 80.0-105.0 [facility] Comment on above: Performed By: #### 8 5499 #### [facility] [address] [place] [address], [facility] PCO2 45.7 mmHg High 35.0-45.0 [facility] Comment on above: Performed By: #### 8 5499 #### [facility] [address] [facility] [address], [facility] pH (Bld) 7.39 [pH] Normal 7.35-7.45 [facility] Comment on above: Performed By: #### 8 [id number] #### [facility] [address] [facility] [place] [address], [facility] Potassium [Moles/Vol] 4.3 mmol/L Normal 3.5-4.9 [facility] Comment on above: Performed By: #### 8 [id number] #### [facility] [address] [place] [address], [facility] Sodium [Moles/Vol] 139 mmol/L Normal 138-146 [facility] Comment on above: Performed By: #### 8 5499 #### [facility] [address] [place] [address], [facility] BASE EXCESS 2.0 mmol/L Normal -2.0-3.0 [facility] Comment on above: Performed By: #### 8 5499 #### [facility] [address] [place] [address], [facility] Glucose [Mass/Vol] 225 mg/dL High 70-105 [facility] Comment on above: Performed By: #### 8 [id number] #### [facility] [address] [place] [address], [facility] Hematocrit (Bld) [Volume fraction] 25 % Low 38-51 [facility] Comment on above: Performed By: #### 8 [id number] #### [facility] [address] [place] [address], [facility] Hemoglobin (Bld) [Mass/Vol] 8.5 g/dL Low 12.0-17.0 [facility] Comment on above: Performed By: #### 8 [id number] #### [facility] [address] [place] [address], [facility] IONIZED CALCIUM 1.05 mmol/L Low 1.12-1.32 [facility] Comment on above: Performed By: #### 8 [id number] #### [facility] [address] [place] [address], [facility] Oxygen (Bld) [Partial pressure] 446.0 mm[Hg] High 80.0-105.0 [facility] Comment on above: Performed By: #### 8 [id number] #### [facility] [address] [facility] [place] [address], [facility] PCO2 49.0 mmHg High 35.0-45.0 [facility] Comment on above: Performed By: #### 8 [id number] #### [facility] [address] [place] [address], [facility] pH (Bld) 7.36 [pH] Normal 7.35-7.45 [facility] Comment on above: Performed By: #### 8 [id number] #### [facility] [address] [place] [address], [facility] Potassium [Moles/Vol] 4.3 mmol/L Normal 3.5-4.9 [facility] Comment on above: Performed By: #### 8 [id number] #### [facility] [address] [place] [address], [place] Sodium [Moles/Vol] 138 mmol/L Normal 138-146 [facility] Comment on above: Performed By: #### 8 [id number] #### [facility] [address] [place] [address], [facility] BASE EXCESS 3.0 mmol/L Normal -2.0-3.0 [facility] Comment on above: Performed By: #### 8 [id number] #### [facility] [address] [place] [address], [facility] Glucose [Mass/Vol] 97 mg/dL Normal 70-105 [facility] Comment on above: Performed By: #### 8 [id number] #### [facility] [address] [place] [address], [facility] Hematocrit (Bld) [Volume fraction] 28 % Low 38-51 [facility] Comment on above: Performed By: #### 8 [id number] #### [facility] [address] [place] [address], [facility] Hemoglobin (Bld) [Mass/Vol] 9.5 g/dL Low 12.0-17.0 [facility] Comment on above: Performed By: #### 8 [id number] #### [facility] [address] [place] [address], [facility] IONIZED CALCIUM 0.97 mmol/L Low 1.12-1.32 [facility] Comment on above: Performed By: #### 8 [id number] #### [facility] [address] [place] [address], [facility] Oxygen (Bld) [Partial pressure] 501.0 mm[Hg] High 80.0-105.0 [facility] Comment on above: Performed By: #### 8 [id number] #### [facility] [address] [place] [address], [facility] PCO2 38.5 mmHg Normal 35.0-45.0 [facility] Comment on above: Performed By: #### 8 [id number] #### [facility] [address] [place] [address], [place] pH (Bld) 7.45 [pH] Normal 7.35-7.45 [facility] Comment on above: Performed By: #### 8 [id number] #### [facility] [address] [place] [address], [place] Potassium [Moles/Vol] 3.8 mmol/L Normal 3.5-4.9 [facility] Comment on above: Performed By: #### 8 [id number] #### [facility] [address] [place] [address], [place] Sodium [Moles/Vol] 139 mmol/L Normal 138-146 [facility] Comment on above: Performed By: #### 8 [id number] #### [facility] [address] [place] [address], [place] BASE EXCESS 0.0 mmol/L Normal -2.0-3.0 [facility] Comment on above: Performed By: #### 8 [id number] #### [facility] [address] [place] [address], [place] Glucose [Mass/Vol] 97 mg/dL Normal 70-105 [facility] Comment on above: Performed By: #### 8 [id number] #### [facility] [address] [place] [address], [place] Hematocrit (Bld) [Volume fraction] 29 % Low 38-51 [facility] Comment on above: Performed By: #### 8 [id number] #### [facility] [address] [place] [address], [place] Hemoglobin (Bld) [Mass/Vol] 9.9 g/dL Low 12.0-17.0 [facility] Comment on above: Performed By: #### 8 [id number] #### [facility] [address] [place] [address], [place] IONIZED CALCIUM 1.03 mmol/L Low 1.12-1.32 [facility] Comment on above: Performed By: #### 8 [id number] #### [facility] [address] [place] [address], [facility] Oxygen (Bld) [Partial pressure] 46.0 mm[Hg] Normal [facility] Comment on above: Performed By: #### 8 [id number] #### [facility] [address] [place] [address], [facility] PCO2 40.6 mmHg Low 41.0-51.0 [facility] Comment on above: Performed By: #### 8 [id number] #### [facility] [address] [facility] [place] [address], [facility] pH (Bld) 7.39 [pH] Normal 7.31-7.41 [facility] Comment on above: Performed By: #### 8 [id number] #### [facility] [address] [place] [address], [facility] Potassium [Moles/Vol] 3.8 mmol/L Normal 3.5-4.9 [facility] Comment on above: Performed By: #### 8 [id number] #### [facility] [address] [place] [address], [facility] Sodium [Moles/Vol] 141 mmol/L Normal 138-146 [facility] Comment on above: Performed By: #### 8 [id number] #### [facility] [address] [place] [address], [facility] BASE EXCESS -1.0 mmol/L Normal -2.0-3.0 [facility] Comment on above: Performed By: #### 3 1792 #### [facility] [address] [facility] [place] [id number], [facility] Glucose [Mass/Vol] 107 mg/dL High 70-105 [facility] Comment on above: Performed By: #### 3 179 #### [facility] [address] [place] [address], [facility] Hematocrit (Bld) [Volume fraction] 33 % Low 38-51 [facility] Comment on above: Performed By: #### 3 1791 #### [facility] [address] [place] [address], [facility] Hemoglobin (Bld) [Mass/Vol] 11.2 g/dL Low 12.0-17.0 [facility] Comment on above: Performed By: #### 3 1791 #### [facility] [address] [place] [address], [facility] IONIZED CALCIUM 1.16 mmol/L Normal 1.12-1.32 [facility] Comment on above: Performed By: #### 3 1791 #### [facility] [address] [place] [address], [facility] Oxygen (Bld) [Partial pressure] 293.0 mm[Hg] High 80.0-105.0 [facility] Comment on above: Performed By: #### 3 1791 #### [facility] [address] [place] [address], [facility] PCO2 41.5 mmHg Normal 35.0-45.0 [facility] Comment on above: Performed By: #### 3 1791 #### [facility] [address] [place] [address], [facility] pH (Bld) 7.38 [pH] Normal 7.35-7.45 [facility] Comment on above: Performed By: #### 3 1791 #### [facility] [address] [place] [address], [place] Potassium [Moles/Vol] 3.8 mmol/L Normal 3.5-4.9 [facility] Comment on above: Performed By: #### 3 1791 #### [facility] [address] [place] [address], [place] BASE EXCESS 0.0 mmol/L Normal -2.0-3.0 [facility] Comment on above: Performed By: #### 8 [id number] #### [facility] [address] [place] [address], [facility] Glucose [Mass/Vol] 104 mg/dL Normal 70-105 [facility] Comment on above: Performed By: #### 8 [id number] #### [facility] [address] [place] [address], [facility] Hematocrit (Bld) [Volume fraction] 35 % Low 38-51 [facility] Comment on above: Performed By: #### 8 [id number] #### [facility] [address] [place] [address], [facility] Hemoglobin (Bld) [Mass/Vol] 11.9 g/dL Low 12.0-17.0 [facility] Comment on above: Performed By: #### 8 [id number] #### [facility] [address] [facility] [place] [address], [facility] IONIZED CALCIUM 1.20 mmol/L Normal 1.12-1.32 [facility] Comment on above: Performed By: #### 8 5499 #### [facility] [address] [facility] [place] [address], [facility] Oxygen (Bld) [Partial pressure] 379.0 mm[Hg] High 80.0-105.0 [facility] Comment on above: Performed By: #### 8 5499 #### [facility] [address] [facility] [address], [facility] PCO2 40.8 mmHg Normal 35.0-45.0 [facility] Comment on above: Performed By: #### 8 5499 #### [facility] [address] [place] [address], [facility] pH (Bld) 7.40 [pH] Normal 7.35-7.45 [facility] Comment on above: Performed By: #### 8 [id number] #### [facility] [address] [place] [address], [place] Potassium [Moles/Vol] 3.9 mmol/L Normal 3.5-4.9 [facility] Comment on above: Performed By: #### 8 5499 #### [facility] [address] [place] [address], [place] PHOSPHORUS BLOODon Phosphate [Mass/Vol] 2.7 mg/dL Normal 2.5-5.0 [facility] Comment on above: Order Comment: No: D o not add to previous draw Performed By: #### 3 0965 #### [facility] [address] [place] [address], [place] POC GLUCOSE LABon 07-12-2021 Glucose [Mass/Vol] 115 mg/dL High 70-100 [facility] Comment on above: Performed By: #### 3 1595 #### [facility] [address] [place] [address], [place] Glucose [Mass/Vol] 132 mg/dL High 70-100 [facility] Comment on above: Performed By: #### 3 1595 #### [facility] [address] [place] [address], [place] Glucose [Mass/Vol] 109 mg/dL High 70-100 [facility] Comment on above: Performed By: #### 5 0608 #### [facility] [address] [place] [address], [place] Glucose [Mass/Vol] 150 mg/dL High 70-100 [facility] Comment on above: Performed By: #### 8 [id number] #### [facility] [address] [place] [address], [place] Glucose [Mass/Vol] 162 mg/dL High 70-100 [facility] Comment on above: Performed By: #### 5 0608 #### [facility] [address] [place] [address], [facility] Glucose [Mass/Vol] 97 mg/dL Normal 70-100 [facility] Comment on above: Performed By: #### 3 1595 #### [address] [address] PORTABLE CHEST 1 VIEWon 06-28 PORTABLE CHEST 1 VIEW [facility] Department of Radiology [address] [place] [id number] Patient Name: ISRAEL DEVINE : 1950 Sex: M Age: Race: White Pt. Location: [place] [address] Patient Status: I Ordered Date: 07/12/2021 1:00:00 [...] atelectasis Electronically signed: Amauri Ramirez. Transcribed by: [email or web address], User Resident: Electronically Signed by: AMAURI RAMIREZ @ 07/12/2021 01:53 PM Normal [facility] Comment on above: Order Comment: The A ptima SARS-CoV-2 assay is a nucleic acid amplification test intended for the qualitative detection of RNA from SARS-CoV-2 isolated and purified from nasopharyngeal (INSPECTOR OUTSIDE PRODUCTION),oropharyngeal (OP), nasal swab, sputum, and bronchoalveolar lavage (BAL) specimens from patients with signs and symptoms of infection who are suspected of COVID-19. Results are for the identification of SARS-CoV-2 RNA. The SARS-CoV-2 RNA is generally detectable during the acute phase of infection. The Aptima SARS-CoV-2 Assay on the [employer] and [place] [employer] system is intended for use by laboratory personnel specifically instructed and trained in the operation of the [place] [employer] system. The Aptima SARS-CoV-2 assay is [...] [Relative time] 1.27 {INR} High 0.91-1.16 [facility] Comment on above: Order Comment: No: [...] 1995;108:[id number]. Performed By: #### 5 0608 #### [facility] [address] [facility] PT Coag (PPP) [Time] 15.9 s High 12.3-14.8 [facility] Comment on above: Order Comment: No: D o not add to previous draw Result Comment: ALL RESULTS MUST BE INTERPRETED WITH RESPECT TO BLOOD DRAWING ARTIFACT OR DILUTION ERROR OF ANTICOAGULANT AT THE TIME OF SAMPLING. Performed By: #### 5 0608 #### [facility] [address] [facility] [address] INR Coag (PPP) [Relative time] 1.63 {INR} High 0.91-1.16 [facility] Comment on above: Result Comment: ACCC [...] 1995;108:[id number]. Performed By: #### 5 0608 #### [address] PT Coag (PPP) [Time] 19.2 s High 12.3-14.8 [facility] Comment on above: Result Comment: ALL RESULTS MUST BE INTERPRETED WITH RESPECT TO BLOOD DRAWING ARTIFACT OR DILUTION ERROR OF ANTICOAGULANT AT THE TIME OF SAMPLING. Performed By: #### 5 0608 #### [address] CHEST AND LATERALon 07-10-20 21 CHEST AND LATERAL [facility] Department of Radiology [address] [place] [id number] Patient Name: ISRAEL DEVINE : 1950 [...] atelectasis. Electronically signed: Ludwig Shah. Transcribed by: [email or web address], User Resident: Electronically Signed by: LUDWIG SHAH @ 07/10/2021 05:29 PM Normal [facility] Comment on above: Order Comment: The A ptima SARS-CoV-2 assay is a nucleic acid amplification test intended for the qualitative detection of RNA from SARS-CoV-2 isolated and purified from nasopharyngeal (INSPECTOR OUTSIDE PRODUCTION),oropharyngeal (OP), nasal swab, sputum, and bronchoalveolar lavage (BAL) specimens from patients with signs and symptoms of infection who are suspected of COVID-19. Results are for the identification of SARS-CoV-2 RNA. The SARS-CoV-2 RNA is generally detectable during the acute phase of infection. The Aptima SARS-CoV-2 Assay on the [employer] and [place] [employer] system is intended for use by laboratory personnel specifically instructed and trained in the operation of the [place] [employer] [place] system. The Aptima SARS-CoV-2 assay is [...] Pulmonary Functionon 021 Pulmonary Function MR #: [id number] [facility] PT. Name: Israel Devine Date: 05/29/2021 [...] Gomez MD Date Trans: 06/27/2021 01:07 P/ [id number] cc: Deb Klein M.D. [place] [address] [facility] [place] [address] Normal [facility] *MRSA/MSSA DNA NASALon 05-29 *MRSA/MSSA DNA NASAL Clinical Report: (D) Specimen: NASAL SWAB Collected: 05/29/2021 12:56 Status: Final Last Updated: 05/29/2021 17:37 MSSA DNA (Final) Negative MRSA DNA (Final) Negative Normal [facility] Comment on above: Performed By: #### 3 1595 #### [facility] [address] [place] [address], [facility] *SARS-CoV-2 COVID-19on 05-29 SARS-CoV-2 (COVID-19) RNA RAZIA+probe Ql (Unsp spec) Not detected Normal Not Detected [facility] Comment on above: Order Comment: The A ptima SARS-CoV-2 assay is a nucleic acid amplification test intended for the qualitative detection of RNA from SARS-CoV-2 isolated and purified from nasopharyngeal (INSPECTOR OUTSIDE PRODUCTION),oropharyngeal (OP), nasal swab, sputum, and bronchoalveolar lavage (BAL) specimens from patients with signs and symptoms of infection who are suspected of COVID-19. Results are for the identification of SARS-CoV-2 RNA. The SARS-CoV-2 RNA is generally detectable during the acute phase of infection. The Aptima SARS-CoV-2 Assay on the [employer] and [employer] Fusion system is intended for use by laboratory personnel specifically instructed and trained in the operation of the [place] and [employer] system. The Aptima SARS-CoV-2 assay is [...] information. Performed By: #### 3 1792 #### [facility] [address] [facility] [place], [place] [address] [place] [address] APTTon 05-29-2021 aPTT Coag (Bld) [Time] 32.6 s Normal 25.0-35.0 [facility] Comment on above: Result Comment: ALL [...] PURPOSE. Performed By: #### 8 [id number] #### [facility] [address] ARTERIAL BLOOD GAS W/COOXon 05-29-2021 BASE EXCESS -1 mmol/L Normal -2-3 [facility] Comment on above: Performed By: #### 3 0738 #### [facility] [address] [place] [address], [facility] COHB 1.3 % Normal 0.0-1.5 [facility] Comment on above: Performed By: #### 3 0738 #### [facility] [address] [facility] [address] DELIVERY SYSTEMS ROOM AIR Normal [facility] Comment on above: Performed By: #### 3 0738 #### [facility] [address] [facility] [place] [place] [address], [facility] FIO2 0 % Normal [facility] Comment on above: Performed By: #### 3 0738 #### [facility] [address] [facility] [place] [place] [address], [facility] HCO3 (Bld) [Moles/Vol] 23 mmol/L Normal 21-28 [facility] Comment on above: Performed By: #### 3 0738 #### [facility] [address] [facility] [place] [address], [facility] METHB 0.7 % Normal 0.0-1.5 [facility] Comment on above: Performed By: #### 3 0738 #### [facility] [address] [facility] [place] [address], [facility] Oxygen (Bld) [Partial pressure] 87 mm[Hg] Normal 83-108 [facility] Comment on above: Performed By: #### 3 0738 #### [facility] [address] Oxygen saturation in Blood 96.3 % Normal 94.0-97.0 [facility] Comment on above: Performed By: #### 3 0738 #### [facility] [address] PCO2 35 mmHg Normal 35-45 [facility] Comment on above: Performed By: #### 3 0738 #### [facility] [address] pH (Bld) 7.43 [pH] Normal 7.35-7.45 [facility] Comment on above: Performed By: #### 3 0738 #### [facility] [address] THB 13.6 g/dL Normal 12.0-16.3 [facility] Comment on above: Performed By: #### 3 0738 #### [facility] [address] CBC W/DIFFon 05-29-2021 ABS IMM GRANS 0.0 10*3/uL Normal 0.0-0.2 [facility] Comment on above: Performed By: #### 8 [id number] #### [facility] [address] ABS NEUTROPHILS 2.9 10*3/uL Normal 1.6-7.6 [facility] Comment on above: Performed By: #### 8 [id number] #### [facility] [address] Basophils (Bld) [#/Vol] 0.1 10*3/uL Normal 0.0-0.2 [facility] Comment on above: Performed By: #### [id number] #### [facility] [address] Basophils/100 WBC (Bld) 1.3 % High 0.0-1.0 [facility] Comment on above: Performed By: #### [id number] #### [facility] [address] [place] [address], [facility] Eosinophils (Bld) [#/Vol] 0.3 10*3/uL Normal 0.0-0.5 [facility] Comment on above: Performed By: #### [id number] #### [facility] [facility] [address] [facility] [place] [place] [address], [facility] Eosinophils/100 WBC (Bld) 6.0 % Normal 0.0-6.0 [facility] Comment on above: Performed By: #### 8 [id number] #### [facility] [address] [facility]. [address] Erythrocyte distribution width (RBC) [Ratio] 12.5 % Normal 11.5-15.0 [facility] Comment on above: Performed By: #### 8 [id number] #### [facility] [address] [facility]. [address] Hematocrit (Bld) [Volume fraction] 42.6 % Normal 39.0-50.0 [facility] Comment on above: Performed By: #### 8 [id number] #### [facility] [address] [facility] [place] [place] [address], [facility] Hemoglobin (Bld) [Mass/Vol] 13.7 g/dL Normal 13.0-17.0 [facility] Comment on above: Performed By: #### 8 [id number] #### [facility] [address] [place] [address], [facility] IMMATURE GRANS 0.4 % Normal 0.0-1.0 [facility] Comment on above: Performed By: #### 8 [id number] #### [facility] [address] [place] [address], [facility] Lymphocytes (Bld) [#/Vol] 1.2 10*3/uL Normal 1.2-4.0 [facility] Comment on above: Performed By: #### 8 [id number] #### [facility] [address] [place] [address], [facility] Lymphocytes/100 WBC (Bld) 23.2 % Normal 20.0-45.0 [facility] Comment on above: Performed By: #### 8 [id number] #### [facility] [address] [place] [address], [facility] MCH (RBC) [Entitic mass] 30.2 pg Normal 27.0-33.0 [facility] Comment on above: Performed By: #### 8 [id number] #### [facility] [address] [facility] [place] [address], [facility] MCHC (RBC) [Mass/Vol] 32.2 g/dL Normal 32.0-35.0 [facility] Comment on above: Performed By: #### 8 [id number] #### [facility] [address] [facility] [place] [address], [facility] MCV (RBC) [Entitic vol] 94.0 fL Normal 82.0-98.0 [facility] Comment on above: Performed By: #### 8 [id number] #### [facility] [address] [facility] [place] [address], [facility] Monocytes (Bld) [#/Vol] 0.8 10*3/uL Normal 0.1-1.0 [facility] Comment on above: Performed By: #### 8 [id number] #### [facility] [address] [facility] [place] [address], [facility] MONOS 14.1 % High 5.0-12.0 [facility] Comment on above: Performed By: #### 8 [id number] #### [facility] [address] [place] [address], [facility] Neutrophils/100 WBC (Bld) 55.0 % Normal 40.0-72.0 [facility] Comment on above: Performed By: #### 8 [id number] #### [facility] [address] [place] [address], [facility] Nucleated RBC/100 WBC (Bld) [Ratio] 0 % Normal 0-0 [facility] Comment on above: Performed By: #### 8 [id number] #### [facility] [address] [place] [address], [facility] PLAT CNT 211 10*3/uL Normal 150-400 [facility] Comment on above: Performed By: #### 8 [id number] #### [facility] [address] [place] [address], [facility] RBC (Bld) [#/Vol] 4.53 10*6/uL Normal 4.20-5.70 [facility] Comment on above: Performed By: #### 8 [id number] #### [facility] [address] [place] [address], [facility] WBC (Bld) [#/Vol] 5.31 10*3/uL Normal 4.00-10.60 [facility] Comment on above: Performed By: #### 8 [id number] #### [address] CHEST AND LATERALon 05-29-20 CHEST AND LATERAL [facility] Department of Radiology [address] [place] [id number] Patient Name: ISRAEL DEVINE : 1950 [...] identified. Electronically signed: Oneal Barth. Transcribed by: [email or web address], User Resident: Electronically Signed by: ONEAL BARTH @ 05/29/2021 03:39 PM Normal [facility] Comment on above: Order Comment: The A ptima SARS-CoV-2 assay is a nucleic acid amplification test intended for the qualitative detection of RNA from SARS-CoV-2 isolated and purified from nasopharyngeal (INSPECTOR OUTSIDE PRODUCTION),oropharyngeal (OP), nasal swab, sputum, and bronchoalveolar lavage (BAL) specimens from patients with signs and symptoms of infection who are suspected of COVID-19. Results are for the identification of SARS-CoV-2 RNA. The SARS-CoV-2 RNA is generally detectable during the acute phase of infection. The Aptima SARS-CoV-2 Assay on the [employer]ter[employer] and Chatter[employer] Fusion system is intended for use by laboratory personnel specifically instructed and trained in the operation of the [place] and [place] Fusion system. The Aptima SARS-CoV-2 assay is [...] Albumin [Mass/Vol] 4.3 g/dL Normal 3.5-5.7 [facility] Comment on above: Performed By: #### 0 0121 ####[facility] ALKALINE PHOSPH 58 IU/L Normal 34-104 [facility] Comment on above: Performed By: #### 0 0121 ####[facility] ALT [Catalytic activity/Vol] 14 U/L Normal 7-52 [facility] Comment on above: Performed By: #### 0 0121 ####[facility] AST [Catalytic activity/Vol] 19 U/L Normal 13-39 [facility] Comment on above: Performed By: #### 0 0121 ####[facility] [place] [address], [facility] Bilirubin [Mass/Vol] 0.7 mg/dL Normal 0.3-1.0 [facility] Comment on above: Performed By: #### 0 0121 ####[facility] [place] [address], [facility] Calcium [Mass/Vol] 9.2 mg/dL Normal 8.6-10.3 [facility] Comment on above: Performed By: #### 0 0121 ####[facility] [place] [address], [facility] Chloride [Moles/Vol] 107 mmol/L Normal 98-107 [facility] Comment on above: Performed By: #### 0 0121 ####[facility] [place] [address], [facility] CO2 [Moles/Vol] 27 mmol/L Normal 21-31 [facility] Comment on above: Performed By: #### 0 0121 ####[facility] [facility] [place] [address], [facility] Creatinine [Mass/Vol] 1.09 mg/dL Normal 0.70-1.30 [facility] Comment on above: Performed By: #### 0 0121 ####[facility] [place] [address], [facility] GFR/1.73 sq M.predicted among blacks MDRD (S/P/Bld) [Vol rate/Area] mL/min/{1.73_m2} Normal >60 [facility] Comment on above: Result Comment: Calc ulation may not be valid for patients over 70 years Performed By: #### 0 0121 ####[facility] [place] [address], [facility] GFR/1.73 sq M.predicted among non-blacks MDRD (S/P/Bld) [Vol rate/Area] mL/min/{1.73_m2} Normal >60 [facility] Comment on above: Result Comment: Calc ulation may not be valid for patients over 70 years Performed By: #### 0 0121 ####[facility] [place] [address], [place] Glucose [Mass/Vol] 78 mg/dL Normal 70-100 [facility] Comment on above: Performed By: #### 0 0121 ####[facility] [facility] [place] [address], [place] Potassium [Moles/Vol] 4.4 mmol/L Normal 3.5-5.1 [facility] Comment on above: Performed By: #### 0 0121 ####[facility] Protein [Mass/Vol] 6.3 g/dL Normal 6.0-8.3 [facility] Comment on above: Performed By: #### 0 0121 ####[facility] [facility].[address] Sodium [Moles/Vol] 140 mmol/L Normal 136-145 [facility] Comment on above: Performed By: #### 0 0121 ####[facility] Urea nitrogen [Mass/Vol] 26 mg/dL High 7-25 [facility] Comment on above: Performed By: #### 0 0121 ####[facility] HEMOGLOBIN A1Con 05-29-2021 Glucose [Moles/Vol] 117 mmol/L Normal [facility] Comment on above: Performed By: #### 3 0965 #### [facility] [address] [facility]. [address] HbA1c (Bld) [Mass fraction] 5.7 % Normal 4.0-6.0 [facility] Comment on above: Performed By: #### 3 0965 #### [facility] [address] [facility]. [address] PROTHROMBIN TIMEon INR Coag (PPP) [Relative time] 1.03 {INR} Normal 0.91-1.16 [facility] Comment on above: Result Comment: ACCC [...] 1995;108:231S-246S. Performed By: #### 8 [id number] #### [facility] [employer] [address] PT Coag (PPP) [Time] 13.5 s Normal 12.3-14.8 [facility] Comment on above: Result Comment: ALL RESULTS MUST BE INTERPRETED WITH RESPECT TO BLOOD DRAWING ARTIFACT OR DILUTION ERROR OF ANTICOAGULANT AT THE TIME OF SAMPLING. Performed By: #### 8 [id number] #### [facility] [employer] [address] TYPE AND CROSSMATCHon 2020 ABO INTERPRETATION A Normal [facility] Comment on above: Order Comment: 4 UNI TS Performed By: #### 8 [id number] #### [facility] [address] [place] [address], [facility] RH INTERPRETATION Positive Normal [facility] Comment on above: Order Comment: 4 UNI TS Performed By: #### 8 [id number] #### [facility] [address] URINALYSIS REFLEXon 05-29-20 21 Appearance (U) SL CLOUDY Abnormal CLEAR [facility] Comment on above: Performed By: #### 3 0965 #### [facility] [address] [facility] [address], [facility] Bilirubin Ql (U) Negative Normal NEGATIVE [facility] Comment on above: Performed By: #### 3 0965 #### [facility] [address] [place] [address], [facility] Color (U) YELLOW Abnormal YELLOW [facility] Comment on above: Performed By: #### 3 0965 #### [facility] [address] [place] [address], [facility] EPIS FEW Normal FEW,OCC,NON E SEEN [facility] Comment on above: Performed By: #### 3 0965 #### [facility] [address] [place] [address], [facility] Glucose Ql (U) Negative Normal NEGATIVE [facility] Comment on above: Performed By: #### 3 0965 #### [facility] [address] [place] [address], [facility] Hemoglobin Ql (U) Negative Abnormal NEGATIVE [facility] Comment on above: Performed By: #### 3 0965 #### [facility] [address] [place] [address], [facility] KETONE Negative Normal NEGATIVE [facility] Comment on above: Performed By: #### 3 0965 #### [facility] [address] [place] [address], [facility] LEUK ALYSA Negative Normal NEGATIVE [facility] Comment on above: Performed By: #### 3 0965 #### [facility] [address] [place] [address], [place] MUCUS THREADS FEW Abnormal NONE SEEN [facility] Comment on above: Performed By: #### 3 0965 #### [facility] [address] [place] [address], [place] Nitrite Ql (U) Negative Normal NEGATIVE [facility] Comment on above: Performed By: #### 3 0965 #### [facility] [address] pH (U) 5.0 [pH] Normal 5.0-8.0 [facility] Comment on above: Performed By: #### 3 0965 #### [facility] [address] Protein Ql (U) Negative Normal NEGATIVE [facility] Comment on above: Performed By: #### 3 0965 #### [facility] [address] RBC NONE SEEN Normal NONE SEEN [facility] Comment on above: Performed By: #### 3 0965 #### [address] SPEC GRAV 1.026 High 1.015-1.020 [facility] Comment on above: Performed By: #### 3 0965 #### [facility] [address] WBC UA 0-2 Abnormal NONE SEEN [facility] Comment on above: Performed By: #### 3 0965 #### [address] Cardiovascular Lab Reporton 05-18-2021 Cardiovascular Lab Report [facility] Patient Name: Israel Devine [facility] MR #: [id number] Physician: Pippa Jacob Department of Edna Benitez Medicine Service Date: 05/18/2021 Division of Birthdate: 1950 Cardiology Room #: CC Adult Cardiovascular Services [place] [address] Cardiovascular Laboratory Report INDICATION: Symptomatic severe aortic valve regurgitation. PROCEDURES: 1. Right heart catheterization. 2. Access into right internal jugular vein under ultrasound guidance. 3. Bilateral selective coronary angiography from the left radial access. METHODS: Procedure was explained to the patient with risks and benefits. He signed informed consent. He was brought to energy systems laboratory director in a fasting state. The right neck area was prepped and draped in usual fashion. Micropuncture technique and ultrasound guidance was used for access in the right internal jugular vein. A 6-Trinidadian x 11 cm sheath was placed. A 6-Trinidadian Perales catheter was used for right catheterization with measurement of pressures and calculation of cardiac output using the estimated Mervin method. Perales catheter was removed. Access was obtained in the left radial artery using micropuncture technique. A 6-Trinidadian x 11 cm Hydrophilic sheath was advanced. Verapamil was given through the sheath and heparin was administered intravenously. Initial catheter advancement was made feasible using an angled Glidewire. Bilateral selective coronary angiography was then performed using 6-Trinidadian JL4 and JR4 diagnostic catheters. Catheters were [...] Benitez M.D. Date Trans: 05/18/2021 01:38 P/rebecao [id number] cc: Deb Klein M.D. [address], [place] [address] [place] [facility] Vital Signs Date Time Vital Sign Value Performing Clinician Spike roberson 04-28-2024 16:01-0400 Blood Pressure Location Mane AUSTYN [facility] 04-28-2024 16:01-0400 Diastolic blood pressure 72 mm[Hg] Mane ZAMAN [facility] 04-28-2024 16:01-0400 Heart rate 70 /min Mane ORTIZL [facility] 04-28-2024 16:01-0400 Respiratory rate 16 /min Mane ORTIZL [facility] 04-28-2024 16:01-0400 Systolic blood pressure 116 mm[Hg] Mane ZAMAN [facility] Encounters Encounter Date Encounter Type Care Provider Facility Start: 04-28-2024 End: 04-28-2024 [facility] Start: 04-28-2024 End: 04-28-2024 Patient encounter procedure Mane ZAMAN [facility] Start: 03-04-2024 End: 03-04-2024 ambulatory PIPPA BENITEZ [facility] Start: 06-22-2022 End: 06-23-[address] [...] 07-17-2021 Evaluation and management of inpatient DEB HOY Facility:[facility] Start: 05-18-2021 End: 05-19-2021 ambulatory DEB KLEIN Facility:[facility] Start: 04-27-2021 End: 04-28-2021 ambulatory DEB KLEIN Facility:[facility] Procedures Date Procedure Procedure Detail Performing Clinician Start: 01-30-2022 PSA screening MALGORZATA DANIELLE Comment on above: Performed By: #### OBSCRN #### [facility] [address] [place] [address] Dr. Matt Suero Start: 12-19-2021 PSA screening MALGORZATA DANIELLE Comment on above: Performed By: #### PSAD #### [facility] [address] [place] [address] Dr. Matt Suero Start: 05-29-2021 Antibody screen DEB CORRYHoward Comment on above: Order Comment: 4 UNITS Performed By: #### 8 [id number] #### [address] Start: 12-16-2015 Fasciotomy of foot Mane NILL Comment on above: x3 Start: 03-15-2014 Colonoscopy Mane NILL Start: 03-15-2014 Esophagogastroduodenoscopy Mane NILL Start: 03-10-2008 Colonoscopy Mane NILL Arthroplasty of knee Mane NILL Arthroscopy of knee Mane NILL Cardiac catheterization Pierre ZAMAN Replacement of aortic valve Mane ZAMAN Immunizations Immunization Date Immunization Notes Care Provider Fa cili 04-27-2023 influenza virus vaccine, unspecified formulation Mane ZAMAN [facility] 11-29-2022 SARS-CoV-2 (COVID-19 ) [id number] Mane ZAMAN [facility] 11-13-2021 SARS-CoV-2 mRNA (pflblglxduz-vayj-dpdza se) vaccine Mane ZAMAN [facility] 04-22-2021 SARS-CoV-2 (COVID-19 ) mRNA BNT-162b2 vax Mane ZAMAN [facility] Comment on above: Result Comment: 2023: [id number] 09-29-2020 SARS-CoV-2 (COVID-19 ) mRNA BNT-162b2 vax Mane ZAMAN [facility] Comment on above: Result Comment: 2023: [id number] 09-08-2020 SARS-CoV-2 (COVID-19 ) mRNA BNT-162b2 vax Mane ZAMAN [facility] Comment on above: Result Comment: 2023: [id number] Payers Date Payer Category [facility] (FRANCISCO JAVIER and others) [id number] 1960 Medicare [id number] 1960 Self-pay 1950 Unknown [id number] 1950 Unknown [id number] 1950 Unknown [id number] 1950 Unknown [id number] [id number] 1949 Unknown [id number] 1949 Unknown [id number] [id number] 1949 Unknown [id number] [id number] 1949 Unknown [id number] [id number] 1949 Unknown [id number] [id number] 1949 Unknown [id number] [id number] 1950 Unknown [id number] [employer] ( and others) [id number] Medicare [id number] Unknown [id number] Social History Date Type Detail Facility Start: 04-28-2024 Tobacco smoking status Ex-smoker (fi nding) [facility] Tobacco smoking status Never [facility] Sex Assigned At Male [facility] Functional Status Date Assessment Result Facility 04-28-2024 Functional Status N/A [facility] Clinical Note 04-28-2024 Note Date & Type Note Facility 04-28-2024 Note [facility] Surgery Offi ce/Clinic Note Chief Complaint consultation for colonoscopy HPI Staff 73 year old male presents on consultation from Dr. Klein for screening colonoscopy. Denies abdominal or rectal pain. No rectal bleeding or change in bowel habits. Denies nausea or vomiting. No unexplained weight loss. Last colonoscopy completed 02/2014 with diverticulosis and internal hemorrhoids. Questionable history of colon cancer in mother. Patient on Xarelto. History of Present Illness 73 yo male with h/o CAD, afib/AVR, on Xarelto, hypercholesterolemia, chronic diastolic heart failure; GERD, BPH, referred for colorectal screening; denies change in bms or blood in stools, no abd complaints; last colonoscopy 2013 with diverticulosis; no abd operations; on Xarelto daily, on Celebrex daily, no asa; no tobacco use; possible fmhx of colon cancer in patient's mother, no fmhx of IBD. Review of Systems PHQ Score Initial Depression Screen Score: 0 SCORE ROS - Provider Constitutional: no fever, no [...] stones, no urine infection, no dysuria. Musculoskeletal: no pain, no weakness. Skin: no changing moles, [...] or noncontributory. Physical Exam Vitals & Measurements HR: 70(Peripheral) RR: 16 BP: 116/72 HT: 72 in HT: 182.8 cm WT: 94 kg WT: 206.8 lb BMI: 28.13 HEENT: normal conjunctiva, sclera clear, no scleral icterus, EOM intact, PERRLA, oral mucosa moist without lesions. Neck: trachea midline, no mass, symmetric, no thyromegaly or nodules, no adenopathy Respiratory: lungs CTA, respirations non labored. Cardiovascular: regular rate and rhythm, no murmur, no pedal edema or varicosities. Gastrointestinal: soft, non distended, no tenderness, no masses, no palpable hernias, diastasis recti no, no hepatosplenomegaly; normal bs Lymphatic: no cervical adenopathy, no supraclavicular adenopathy. Musculoskeletal: normal gait, digits and nails without infection, nodes, cyanosis, clubbing. Skin: no rashes, no lesions, no ulcers, no subcutaneous nodules, induration. Psychiatric/Neuro: oriented to time, place, person, judgement normal, affect appropriate for age, insight intact, no focal deficits. Tests: , review of old records completed , Discussed surgical options, risks, and possible complications with patient. Assessment/Plan 1. Screening for malignant neoplasm of colon (Z12.11: Encounter for screening for malignant neoplasm of colon) plan colonoscopy under anesthesia, informed consent obtained. cardiology clearance, and clearance to hold Xarelto for 2 days. Follow-up No qualifying data available Problem List/Past Medical History Ongoing A-fib Anxiety Aortic stenosis, non-rheumatic Aortic valve regurgitation Benign prostatic hyperplasia BMI 28.0-28.9,adult Chronic diastolic heart failure Coronary atherosclerosis Diverticular disease of colon Erectile dysfunction Gastric ulcer Gastroesophageal reflux disease Hearing loss History of nephrolithiasis Hyperlipidemia Iron deficiency anemia Left ventricular hypertrophy Overweight Pure hypercholesterolemia Screening for malignant neoplasm of colon Seasonal allergic rhinitis Tension-type headache Tricuspid valve regurgitation Historical No qualifying data Procedure/Surgical History Plantar fasciotomy (12/16/2015), Colonoscopy (03/15/2014), EGD - Esophagogastroduodenoscopy (03/15/2014), Colonoscopy (03/10/2008), Arthroplasty of knee, Arthroscopy of knee, Cardiac catheterization, Cardiac catheterization, Replacement of aortic valve. Medications CeleBREX 100 mg Cap, 100 mg= 1 cap(s), Oral, Daily Centrum Silver oral tablet, Oral, Daily citalopram 40 mg Tab, Oral, Daily ferrous sulfate 325 mg Tab, 325 mg= 1 tab(s), Oral, Daily Lasix 20 mg Tab, 20 mg= 1 tab(s), Oral, Daily Metoprolol tartrate 25 mg Tab, 25 mg= 1 tab(s), Oral, BID omeprazole 20 mg Cap-DR, 20 mg= 1 cap(s), Oral, Daily simvastatin 80 mg Tab, Oral, Once a day (at bedtime) tamsulosin 0.4 mg Cap, Oral, Daily Xarelto 20 mg oral tab (more content not included)... [facility] Comment on above: Result Comment: Elec tronically Signed By: AUSTYN GUILLAUME, Mane Martínez\Date and Time Signed: 04/28/24 16:41 EDT Progress note 03-04-2024 Note Date & Type Note Facility 03-04-2024 Note [facility] - [facility] Subjective Israel Devine is a 73 y.o. year old male patient being seen for 1 year follow up aortic valve disorder, CAD, PAF, and chronic diastolic heart failure. Had echo last month, and routine labs w/ lipid panel in Jul 2023. C/o fatigue and asking for testosterone supplements. Patient was advised to see PCP for this. Denies chest pain, SOB, palpitations, lightheadedness/syncope, and bleeding on Xarelto. Patient Active Problem List Diagnosis Aortic valve regurgitation Paroxysmal atrial fibrillation (CMS/HCC) Bronchitis Chronic diastolic congestive heart failure (CMS/HCC) Coronary atherosclerosis Hyperlipidemia Malaise and fatigue Pneumonia S/P aortic valve replacement with bioprosthetic valve Anxiety Gastric ulcer History of male genital system disorder Iron deficiency anemia Non-healing surgical wound Nonrheumatic aortic valve stenosis Benign prostatic hyperplasia Encounter for immunization Erectile dysfunction Gastroesophageal reflux disease Hearing loss History of arthroplasty of left knee Osteoarthritis Family History Family history unknown: Yes Social History Tobacco Use Smoking status: Former Types: Cigarettes Quit date: 07/29/1997 Years since quittin.6 Smokeless tobacco: Never Substance Use Topics Alcohol use: Not Currently Drug use: Never HPI Israel Devine is a 73-year-old man who is seen in follow up on mild CAD (cath 2012), AF on anticoagulation with Xarelto, hyperlipidemia on simvastatin, and aortic regurgitation s/p bioprosthetic replacement in 2020. Previously he was evaluated by an echocardiogram [...] current diuretic therapy with furosemide 20 mg every day. No angina. No palpitations. No syncope. His main complaint is feeling fatigue and tired all the time. Review of Systems Constitutional: Positive for malaise/fatigue. All other systems reviewed and are negative. Objective Visit Vitals BP 105/71 (BP Location: Left arm, Patient Position: Sitting) Pulse 60 Ht 1.829 m (6') Wt 92.5 kg (204 lb) SpO2 96% BMI 27.67 kg/m??? Smoking Status Former BSA 2.17 m??? Physical Exam Constitutional: Appearance: He is well-developed. He is not ill-appearing. HENT: Head: Normocephalic and atraumatic. Nose: Nose normal. Eyes: General: No scleral icterus. Pupils: Pupils are equal, round, and reactive to light. Neck: Thyroid: No thyromegaly. Vascular: No JVD. Cardiovascular: Rate and Rhythm: Regular rhythm. Bradycardia present. Pulses: Radial pulses are 2+ on the right side and 2+ on the left side. Heart sounds: Normal heart sounds. No murmur heard. No friction rub. No gallop. Pulmonary: Effort: Pulmonary effort is normal. No respiratory distress. Breath sounds: Normal breath sounds. No wheezing or rales. Chest: Chest wall: No tenderness. Abdominal: General: Bowel sounds are normal. There is no distension. Palpations: Abdomen is soft. Tenderness: There is no abdominal tenderness. Musculoskeletal: General: No swelling. Cervical back: Neck supple. Skin: General: Skin is warm and dry. Neurological: General: No focal deficit present. Mental Status: He is alert and oriented to person, place, and time. Psychiatric: Mood and Affect: Mood normal. Behavior: Behavior is cooperative. Judgment: Judgment normal. Allergies No Known Allergies Medications Current Outpatient Medications: celecoxib (CeleBREX) 200 mg capsule, Take 1 capsule every day by oral route for 90 days., Disp: , Rfl: citalopram (CeleXA) 40 mg tablet, Take 1 tablet every day by oral route for 90 days., Disp: , Rfl: ferrous sulfate 325 (65 Fe) MG tablet, Take 1 tablet by mouth in the morning., Disp: , Rfl: furosemide (Lasix) 20 mg tablet, TAKE 1 TABLET BY MOUTH EVERY DAY DIRECTED, Disp: 90 tablet, Rfl: 3 omeprazole (PriLOSEC) [address] capsule, Take 1 capsule every day by oral route., Disp: , Rfl: rivaroxaban (Xarelto) 20 mg tablet, Take 1 tablet every day by oral route for 90 days., Disp: , Rfl: simvastatin (Zocor) 80 mg tablet, Take 1 tablet every day by oral route., Disp: , Rfl: (more content not included)... [facility] Discharge summary note 08-03-2021 Note Date & Type Note Facility 08-03-2021 Note MR#: [id number] I [facility] Pt. Name: Israel Devine Admitted: 07/12/2021 [...] discharge. Patient was discharged to rehab of [facility]. DISCHARGE CONDITION: Patient's condition at discharge, stable. Good. DISCHARGE DISPOSITION: [facility]. HOME MEDICATIONS: Celebrex 200 mg [...] his own. [facility] Electronically Signed by: Singh Dotson MD 08/03/2021 09:50 A Singh Dotson MD I personally saw this patient on the day of the encounter, performed the weir portion(s) of the service and participated in the management and confirm the resident's documentation. Please note there may be an additional personal documentation from me. Date Dict: 08/02/2021/08:12 P/Kayla Wing, [employer]PER[employer] Date Trans: 08/03/2021 01:27 A/tangela [id number] cc: Deb Klein M.D. [address], [facility] [id number] [facility] Evaluation + Plan note Note Date & Type Note Facility Evaluation + Plan note No data available for this section [facility] Discharge instructions Note Date & Type Note Facility Hospital Discharge instructions No data available for this section [facility] Progress note Note Date & Type Note Facility Progress note No data available for this section [facility] Summary Purpose Family History No Family History Records FoundNo Family History Records FoundNo Family History Records Found No data available for this section No Family History Records Found Advance Directives No Advanced Directives Records FoundNo Advanced Directives Records FoundNo Advanced Directives Records FoundNo Advanced Directives Records Found Additional Source Comments (unrecognized sect ion and content) No Status Records FoundNo Status Records FoundNo Status Records FoundNo Status Records Found INFORMATION SOURCE (unrecogn ized section and content) DATE CREATED AUTHOR 03/23/2022 [facility] DATE CREATED AUTHOR AUTHOR'S ORGANIZ ATION 06/28/2022 [facility] DATE CREATED AUTHOR AUTHOR'S ORGANIZ ATION 03/06/[address] [facility] DATE CREATED AUTHOR AUTHOR'S ORGANIZ ATION 04/30/2024 [facility] Patient Care team informatio n (unrecognized section and content) Personnel Name: Deb Klein MD Address: Address: [address] [place] [address] FOR RECORDS PERTAINING TO PATIENTS WHO ARE [...] BE BASED ON THE PRIMARY CLINICAL RECORDS. [facility] [employer] [facility]. provides no warranty or guarantee of the accuracy or completeness of information in this document.
[2024-05-27 08:00] VITALS: BP 134/82; PULSE 67; TEMP 36.6; O2SAT 96; BMI 13.1; BMI 28.2
[2024-05-27] MEDS: 0.9 % SODIUM CHLORIDE 500 ML 50 ML IV ×2 (08:36→09:58)
[2024-05-27 09:43] VITALS: BP 97/47; PULSE 71; TEMP 36.3; O2SAT 94
[2024-05-27 09:58] VITALS: BP 104/61; PULSE 67; O2SAT 96
[2024-05-27 10:13] VITALS: BP 108/68; PULSE 68; O2SAT 97
[2024-05-27 10:43] VITALS: BP 110/66; PULSE 72; O2SAT 98
== END 2024-05-27 10:43 | disposition home or self-care (01) ==
PROVIDERS: PCP Family Medicine; Visit Provider Surgery
PROC: (CPT G0121; principal; 2024-05-27 08:55)
DX: Z12.11 Encounter for screening for malignant neoplasm of colon (principal); K57.30 Diverticulosis of large intestine without perforation or abscess without bleeding; Z79.01 Long term (current) use of anticoagulants; I25.10 Atherosclerotic heart disease of native coronary artery without angina pectoris; I48.91 Unspecified atrial fibrillation; E78.00 Pure hypercholesterolemia, unspecified; I50.32 Chronic diastolic (congestive) heart failure; K21.9 Gastro-esophageal reflux disease without esophagitis; N40.0 Benign prostatic hyperplasia without lower urinary tract symptoms; Z87.891 Personal history of nicotine dependence; I07.1 Rheumatic tricuspid insufficiency; Z87.442 Personal history of urinary calculi
CPT/HCPCS: G0121; J2704

== ENCOUNTER 2025-03-15 08:52 | Outpatient (OUT) | payer MEDICARE, OTHER, SELFPAY ==
--- OUTSIDE RECORDS SUMMARY | 2024-08-26 05:00 | XMS_ITS | Encounter Summary ---
Author Name [facility] [place] [facility] Address [address] [place] [address] Care Team Providers Care Supply Manager Name Role Phone ANGEL HUICA Primary Care Provider Unavailabl e Insurance Providers: All historical and current Section Date Range: From patient's date of to the date document was created. This section includes the names of all active insurance providers for the patient. Insurance Provider Type of Coverage Plan Name Start of Policy Coverage End of Policy Coverage Group Number Member ID Insurance Provider's Telephone Number Policy Hammer's Name Patient's Relationship to Policy Hammer MEDICARE (WNR) MEDICARE (M) PART A Jun 28, 2014 PART A [id number] ROSITA GALEANA PATIENT MEDICARE (WNR) MEDICARE (M) PART B Jun 28, 2014 PART B [id number] KERVINROSITA MARTHA PATIENT MEDICARE (WNR) MEDICARE (M) PART B Jun 28, 2014 PART B [id number] KERVINROSITA MARTHA PATIENT MEDICARE (WNR) MEDICARE (M) PART A Jun 28, 2014 PART A [id number] ROSITA GALEANA MARTHA PATIENT -FO R-LIFE [facility] LIFE Jul 01, 2015 TFL [id number] KERVINROSITA MARTHA PATIENT Selected Encounter This section includes the information on record at [place] for the Encounter. Date/Time Encounter Type Encounter Description Reason Provider Source Aug 26, 2024 09:00 AM OFFICE O/P EST MOD 30 MIN PRIMARY CARE/MEDICINE ICD-10-CM D64.9 Anemia, unspecified RANULFO HUI [place] Encounter Template Text not used by [place] Assessments - Encounter Diagnoses This section includes the primary and secondary diagnoses documented for the Encounter. Date/Time Primary/Secondary Diagnosis Diagnosis Name Provider Source Aug 26, 2024 01:26 PM PRIMARY Anemia, unspecified RANULFO HUI [facility] Aug 26, 2024 01:26 PM SECONDARY Gastro-esophageal reflux disease without esophagitis RANULFO HUI [facility] Aug 26, 2024 01:26 PM SECONDARY Hyperlipidemia, unspecified RANULFO HUI [facility] Aug 26, 2024 01:26 PM SECONDARY Male erectile dysfunction, unspecified RANULFO HUI [facility] Aug 26, 2024 01:26 PM SECONDARY Unspecified osteoarthritis, unspecified site RANULFO HUI [facility] Plan of Treatment: Future Appointments (+ 6 months) and Future Tests (+/- 45 days) The Plan of Treatment section includes future care activities for the [facility] [place] [facility] This section includes future appointments and future orders which are active, pending or scheduled. Future Appointments This section includes appointments that were scheduled to occur 6 months from the date of the Encounter, up to a maximum of 20 appointments. The data comes from all [place] treatment facilities. Appointment Date/Time Appointment Type Appointme nt Facility Name Oct 28, 2024 10:30 AM AMBULATORY - SURGERY [facility] Jan 04, 2025 03:[address] [facility] SURGERY [facility] Lab Results: +/- 30 days of the encounter This section includes the Chemistry and Hematology Lab Results on record with [place] for the patient. Radiology Reports and Pathology Reports are provided separately, in subsequent sections. Lab Results This section contains the Chemistry/Hematology Results that were resulted 30 days before or 30 daysafter the date of the Encounter. Date/Time Source Result Type Result - Unit Interpretation Reference Range Specimen Type Comment Aug 19, 2024 09:32 AM [facility] LIPID PROFILE PLASMA Specimen Type: PLASMA Comment: DLDLREF RANGE: NEAR OR ABOVE OPTIMAL: 100-129 mg/dL BORDERLINE DLDLHIGH: 130-159 mg/dL HIGH: 160-189 mg/dL VERY HIGH: >=190 GLUCOSE The ADA recommends a fasting glucose of 99 mg/dL as the GLUCOSE upper limit of normal. TP Per package insert reference range for recumbent is 6.0 to 7.8 TP g/dL and for >60 y/o is lower by 0.2 g/dL. Plasma samples will TP generally have higher values (about 0.2 to 0.4 g/dL higher) due TP to presence of fibrinogen. TRIG REF RANGE: BORDERLINE HIGH: 150-199 mg/dL HIGH: 200-499 mg/dL TRIG VERY HIGH: >=500 mg/dL CHOL REF RANGE: BORDERLINE HIGH: 200-239 mg/dL HIGH: >=240 mg/dL HDLC Values >60 are a negative risk factor for heart disease. Ordering Provider: RANULFO HUI Report Released Date/Time: Jul 30, 2024 12:23 PM Reporting Lab: [address] [id number] Performing Lab: [address] [phone] CHOLESTEROL 166 mg/dL <199 LDL CHOLESTEROL 91 mg/dL 0-99 HDL CHOLESTEROL 72 mg/dL >40 TRIGLYCERIDE 86 mg/dL <149 Aug 19, 2024 09:32 AM [facility] HEMOGLOBIN A1C BLOOD Specimen Type: B LOOD Comment: Values obtained from A1C measurements can vary. For typical A1C assays, a reported value of 7.0 could actually be between 6.72 and 7.28 if measured by a reference method. A reported value of 9.0 could actually be between 8.73 and 9.27. Ref: http://www.ngsp.org/CAPdata.asp Ordering Provider: RANULFO HUI Report Released Date/Time: Jul 30, 2024 12:23 PM Reporting Lab: [address] [phone] Performing Lab: [address] [phone] HEMOGLOBIN A1C 5.7 3.6-5.7 Aug 19, 2024 09:32 AM [facility] COMPREHENSIVE METABOLIC PANEL PLASMA S pecimen Type: PLASMA Comment: DLDLREF RANGE: NEAR OR ABOVE OPTIMAL: 100-129 mg/dL BORDERLINE DLDLHIGH: 130-159 mg/dL HIGH: 160-189 mg/dL VERY HIGH: >=190 GLUCOSE The ADA recommends a fasting glucose of 99 mg/dL as the GLUCOSE upper limit of normal. TP Per package insert reference range for recumbent is 6.0 to 7.8 TP g/dL and for >60 y/o is lower by 0.2 g/dL. Plasma samples will TP generally have higher values (about 0.2 to 0.4 g/dL higher) due TP to presence of fibrinogen. TRIG REF RANGE: BORDERLINE HIGH: 150-199 mg/dL HIGH: 200-499 mg/dL TRIG VERY HIGH: >=500 mg/dL CHOL REF RANGE: BORDERLINE HIGH: 200-239 mg/dL HIGH: >=240 mg/dL HDLC Values >60 are a negative risk factor for heart disease. Ordering Provider: RANULFO HUI Report Released Date/Time: Jul 30, 2024 12:23 PM Reporting Lab: [address] [phone] Performing Lab: [address] [phone] ALBUMIN 4.2 g/dL 3.5-4.8 ALKALINE PHOSPHATASE 59 U/L 40-150 ALT/SGPT 21 U/L <55 AST/SGOT 26 U/L 10-40 BUN 25.0 mg/dL 8.4-25.7 CALCIUM 9.3 mg/dL 8.6-10.3 CREATININE 1.0 mg/dL 0.7-1.3 CO2 27 mmol/L 22-30 GLUCOSE 101 mg/dL H 74-99 PROTEIN, TOTAL 7.0 g/dL 6.4-8.3 SODIUM 142 mmol/L 134-144 CHLORIDE 109 mmol/L 99-112 BILIRUBIN, TOTAL 0.4 mg/dL 0.2-1.2 POTASSIUM 4.6 mmol/L 3.5-5.1 ANION GAP 11 mmol/L 10-20 EGFR (CALCULATED) 78.0 mL/min Aug 19, 2024 09:32 AM [facility] TSH PLASMA Specimen Type: PLASMA Comment: DLDLREF RANGE: NEAR OR ABOVE OPTIMAL: 100-129 mg/dL BORDERLINE DLDLHIGH: 130-159 mg/dL HIGH: 160-189 mg/dL VERY HIGH: >=190 GLUCOSE The ADA recommends a fasting glucose of 99 mg/dL as the GLUCOSE upper limit of normal. TP Per package insert reference range for recumbent is 6.0 to 7.8 TP g/dL and for >60 y/o is lower by 0.2 g/dL. Plasma samples will TP generally have higher values (about 0.2 to 0.4 g/dL higher) due TP to presence of fibrinogen. TRIG REF RANGE: BORDERLINE HIGH: 150-199 mg/dL HIGH: 200-499 mg/dL TRIG VERY HIGH: >=500 mg/dL CHOL REF RANGE: BORDERLINE HIGH: 200-239 mg/dL HIGH: >=240 mg/dL HDLC Values >60 are a negative risk factor for heart disease. Ordering Provider: RANULFO HUI Report Released Date/Time: Jul 30, 2024 12:23 PM Reporting Lab: [place] [id number] Performing Lab: [place] [id number] TSH 2.073 u[IU]/mL 0.350-4.940 Aug 19, 2024 09:32 AM [facility] CBC BLOOD Specimen Type: BLOOD No comment entered. Ordering Provider: RANULFO HUI Report Released Date/Time: Jul 30, 2024 12:23 PM Reporting Lab: [place] [id number] Performing Lab: [place] [id number] WBC COUNT 4.3 10*3/uL 3.6-11.0 RBC COUNT 4.30 10*6/uL L 4.47-5.83 HGB 13.4 g/dL L 13.6-17.4 HCT 40.5 40.0-51.0 MCV 94.0 fL 80.0-96.0 MCH 31.2 pg H 27.0-31.0 MCHC 33.2 g/dL 31.5-36.5 PLT 203 10*3/uL 150-400 LYMPHS % 21.7 21.0-51.0 MONOCYTES % 11.5 H 4.0-8.0 NUCLEATED RBC/100WBC 0.0 /100{WBCs} RDW 13.5 11.2-15.8 NEUTROPHIL % 56.5 54.0-78.0 EOSINOPHIL % 8.3 H 0.0-3.0 BASOPHIL % 2.0 0.0-3.0 ABSOLUTE LYMPHOCYTE COUNT 0.9 10*3/uL 0. 8-5.0 ABSOLUTE NEUTROPHIL COUNT 2.4 10*3/uL 1. 9-8.6 ABSOLUTE BASOPHIL COUNT 0.1 10*3/uL 0.0- 0.3 ABSOLUTE MONOCYTE COUNT 0.5 10*3/uL 0.1- 0.9 ABSOLUTE EOSINOPHIL COUNT 0.4 10*3/uL H 0. 0-0.3 MPV 8.2 fL 7.4-11.4 Aug 19, 2024 09:32 AM [facility] URINALYSIS URINE Specimen Type: URINE No comment entered. Ordering Provider: RANULFO HUI Report Released Date/Time: Jul 30, 2024 12:23 PM Reporting Lab: [address] [phone] Performing Lab: [address] [phone] SPECIFIC GRAVITY 1.027 H 1.016-1.022 URINE GLUCOSE Negative mg/dL Negative URINE PROTEIN Negative mg/dL Negative URINE PH 5.5 5.0-8.0 NITRITE, URINE Negative Negative ESTERASE(WBC) Negative Negative URINE CLARITY Clear Clear URINE BILIRUBIN Negative mg/dL <=0.4 URINE BLOOD Negative mg/dL <0.05 UROBILINOGEN Negative mg/dL <=1 URINE KETONES Negative mg/dL <=9 URINE COLOR Yellow [none] Social History: Smoking Status (Most current) and Tobacco Use (All prior to encounter date) This section includes the most current, and the historical, smoking and tobacco- related health factors from the [place] facility where the Encounter took place. Current Smoking Status This section includes the most current smoking, or tobacco-related health factor, from the [place] facility where the Encounter took place. Date/Time Current Smoking Status Comment Karolina ity Aug 26, 2024 09:00 AM VA-TOBACCO USE FORMER OTHER TYPE [facility] Tobacco Use History This section includes a history of the smoking, or tobacco-related health factors, that were collected on or before the date of the Encounter. The data comes from the [place] facility where the Encounter took place. Date/Time Smoking Status/Tobacco Use Comment F acility Aug 26, 2024 09:00 AM VA-TOBACCO USE FORMER OTHER TYPE [facility] Aug 28, 2023 09:00 AM VA-TOBACCO FORMER USER [facility] Aug 28, 2023 09:00 AM VA-TOBACCO QUIT 15 YRS OR MORE [facility] Aug 28, 2022 10:00 AM VA-TOBACCO FORMER USER [facility] Aug 28, 2022 10:00 AM VA-TOBACCO QUIT 15 YRS OR MORE [facility] Mar 13, 2019 03:57 PM VA-TOBACCO FORMER USER [facility] Mar 13, 2019 03:57 PM VA-TOBACCO QUIT 15 YRS OR MORE [facility] Jul 09, 2018 12:56 PM VA-TOBACCO FORMER USER [facility] Jul 09, 2018 12:56 PM VA-TOBACCO QUIT 15 YRS OR MORE [facility] Nov 15, 2009 10:36 AM QUIT TOBACCO >7 YEARS AGO [facility] Encounter Notes: All associated encounter notes This section contains the clinical notes associated to the Encounter. Date/Time Encounter Note(s) Provider Source Aug 26, 2024 09:15 AM INTERNAL MEDICINE OUTPATIENT NOTE: LOCAL TITLE: PRIMARY CARE OUTPATIENT NOTE (T) STANDARD TITLE: INTERNAL MEDICINE OUTPATIENT NOTE DATE OF NOTE: AUG 26, 2024@09:15 ENTRY DATE: AUG 26, 2024@09:15:09 AUTHOR: RANULFO HUI COSIGNER: URGENCY: STATUS: COMPLETED PRIMARY CARE OUTPATIENT NOTE (T) Has ADDENDA In-person Note 74yo Reason for Visit: Here for annual visit. He states he is doing well, in fact much better since decreasing his metoprolol to 25 mg from 50 as he has more energy. 11 Active Problems PROBLEM LAST MOD PROVIDER History of aortic valve replacement 08/28/2022 RANULFO HUI Hypertensive heart failure 08/28/2022 RANULFO HUI Diastolic heart failure 08/28/2022 RANULFO HUI Benign prostatic hyperplasia 07/13/2020 HARDIK DEAL Hearing loss 07/10/2019 MELANIE TIPTON History of arthroplasty of left knee 08/28/2022 RANULFO HUI Hyperlipidemia 07/04/2016 MELANIE TIPTON Atrial Fibrillation 07/13/2020 HARDIK DEAL Erectile dysfunction (SNOMED CT [id number]) 07/13/2020 HARDIK DEAL Osteoarthritis 08/28/2022 RANULFO HUI Gastroesophageal reflux disease (SNOMED CT 07/04/2016 MELANIE TIPTON [id number]) REVIEW OF SYSTEMS: (denies the following unless indicated otherwise): mood concerns headache fatigue/weight loss dysphagia/hoarseness chest pain dyspnea abdominal pain difficult or bloody elimination PATIENT ALLERGIES DETAILED ALLERGIES/ADVERSE REACTIONS No Known Allergies AMRS - MEDS (REC SUCCINCT) Active and Recently Inpatient, Outpatient and Clinic Medications (including Supplies): Active Outpatient Medications Status ========= 1) OMEPRAZOLE 20MG EC CAP TAKE ONE CAPSULE BY MOUTH ACTIVE EVERY DAY A HALF HOUR BEFORE ONE MEAL 2) SIMVASTATIN 80MG TAB TAKE ONE-HALF TABLET BY MOUTH AT ACTIVE BEDTIME FOR CHOLESTEROL 3) TADALAFIL 5MG TAB TAKE ONE TABLET BY MOUTH AN HOUR ACTIVE BEFORE SEX FOR INABILITY TO HAVE AN ERECTION (NO MORE THAN 1 DOSE PER 24 HOURS) NO NITRATES. DO NOT TAKE WITHIN 4 HOURS OF TAMSULOSIN Active Non-VA Medications Status ========= 1) Non-VA ACETAMINOPHEN TAB 325-650 MG MOUTH FOUR TIMES ACTIVE A DAY NEEDED 2) Non-VA CELECOXIB 200MG CAP 200MG ACTIVE 3) Non-VA CITALOPRAM HYDROBROMIDE 40MG TAB 40MG MOUTH ACTIVE 4) Non-VA FERROUS SULFATE 325MG TAB 325MG MOUTH EVERY ACTIVE DAY 5) Non-VA FUROSEMIDE 20MG TAB 20MG MOUTH EVERY DAY ACTIVE 6) Non-VA METOPROLOL TARTRATE 50MG TAB 50MG MOUTH TWICE ACTIVE A DAY 7) Non-VA MULTIVITAMINS B COMPLEX TAB 1 TAB MOUTH EVERY ACTIVE DAY 8) Non-VA PSYLLIUM ORAL PWD 1 ROUNDED TEASPOONFUL IN 8 ACTIVE OUNCES WATER/FLUID AND DRINK BY MOUTH EVERY DAY 9) Non-VA RIVAROXABAN 20MG TAB 20MG MOUTH EVERY EVENING ACTIVE 10) Non-VA TAMSULOSIN HCL 0.4MG CAP 0.4MG MOUTH AT ACTIVE BEDTIME 13 Total Medications Report Released Date/Time: Aug 19, 2024@18:21 Provider: RANULFO HUI Specimen: URINE. [facility] [id number] Specimen Collection Date: Aug 19, 2024@09:32 Test name Result units Ref. range Site Code URINE PH 5.5 5.0 - 8.0 [541] URINE COLOR Yellow Ref: [none] [541] URINE CLARITY Clear Ref: Clear [541] SPECIFIC GRAVITY 1.027 H 1.016 - 1.022 [541] URINE PROTEIN Negative mg/dL Ref: Negative [541] URINE GLUCOSE Negative mg/dL Ref: Negative [541] URINE KETONES Negative mg/dL Ref: <=9 [541] URINE BILIRUBIN Negative mg/dL Ref: <=0.4 [541] UROBILINOGEN Negative mg/dL Ref: <=1 [541] URINE BLOOD Negative mg/dL Ref: <=0.05 [541] ESTERASE(WBC) Negative Walter/uL Ref: Negative [541] NITRITE, URINE Negative Ref: Negative [541] Report Released Date/Time: Aug 19, 2024@18:05 Provider: RANULFO HUI Specimen: BLOOD. [facility] [id number] Specimen Collection Date: Aug 19, 2024@09:25 Test name Result units Ref. range Site Code HEMOGLOBIN A1C 5.7 % 3.6 - 5.7 [541] Eval: Values obtained from A1C measurements can vary. For typical A1C assays, a Eval: reported value of 7.0 could actually be between 6.72 and 7.28 if measured Eval: by a reference method. A reported value of 9.0 could actually be between Eval: 8.73 and 9.27. Ref: https://ngsp.org/CAPdata.asp WBC COUNT 4.3 K/cmm 3.6 - 11.0 [541] RBC COUNT 4.30 L M/cmm 4.47 - 5.83 [541] HGB 13.4 L g/dL 13.6 - 17.4 [541] HCT 40.5 % 40.0 - 51.0 [541] MCV 94.0 fL 80.0 - 96.0 [541] MCH 31.2 H pg 27.0 - 31.0 [541] MCHC 33.2 g/dL 31.5 - 36.5 [541] RDW 13.5 % 11.2 - 15.8 [541] PLT 203 K/cmm 150 - 400 [541] MPV 8.2 fL 7.4 - 11.4 [541] NEUTROPHIL % 56.5 % 54.0 - 78.0 [541] LYMPHS % 21.7 % 21.0 - 51.0 [541] MONOCYTES % 11.5 H % 4.0 - 8.0 [541] EOSINOPHIL % 8.3 H % 0.0 - 3.0 [541] BASOPHIL % 2.0 % 0.0 - 3.0 [541] ABSOLUTE NEUTROPHIL COUNT 2.4 K/cmm 1.9 - 8.6 [541] ABSOLUTE LYMPHOCYTE COUNT 0.9 K/cmm 0.8 - 5.0 [541] ABSOLUTE MONOCYTE COUNT 0.5 K/cmm 0.1 - 0.9 [541] ABSOLUTE EOSINOPHIL COUNT 0.4 H K/cmm 0.0 - 0.3 [541] ABSOLUTE BASOPHIL COUNT 0.1 K/cmm 0.0 - 0.3 [541] NUCLEATED RBC/100WBC 0.0 /100 WBC None Established - None Established [541] Comment: Values obtained from A1C measurements can vary. For typical A1C assays, a reported value of 7.0 could actually be between 6.72 and 7.28 if measured by a reference method. A reported value of 9.0 could actually be between 8.73 and 9.27. Ref: http://www.ngsp.org/CAPdata.asp Report Released Date/Time: Aug 19, 2024@18:17 Provider: RANULFO HUI Specimen: PLASMA. [facility] [id number] Specimen Collection Date: Aug 19, 2024@09:25 Test name Result units Ref. range Site Code GLUCOSE 101 H mg/dL 74 - 99 [541] SODIUM 142 mmol/L 134 - 144 [541] POTASSIUM 4.6 mmol/L 3.5 - 5.1 [541] CHLORIDE 109 mmol/L 99 - 112 [541] CO2 27 mmol/L 22 - 30 [541] BUN 25.0 mg/dL 8.4 - 25.7 [541] CREATININE 1.0 mg/dL 0.7 - 1.3 [541] CALCIUM 9.3 mg/dL 8.6 - 10.3 [541] EGFR (CALCULATED) 78.0 mL/min [541] Eval: eGFR results >60 are imprecise. Many variables affect the calculated Eval: result. Interpretation of eGFR results >60 must be monitored Eval: over time. ANION GAP 11 mmol/L 10 - 20 [541] AST/SGOT 26 U/L 10 - 40 [541] ALT/SGPT 21 U/L Ref: <=55 [541] ALKALINE PHOSPHATASE 59 U/L 40 - 150 [541] BILIRUBIN, TOTAL 0.4 mg/dL 0.2 - 1.2 [541] PROTEIN, TOTAL 7.0 g/dL 6.4 - 8.3 [541] ALBUMIN 4.2 g/dL 3.5 - 4.8 [541] CHOLESTEROL 166 mg/dL Ref: <=199 [541] LDL CHOLESTEROL 91 mg/dL 0 - 99 [541] HDL CHOLESTEROL 72 mg/dL Ref: >=40 [541] TRIGLYCERIDE 86 mg/dL Ref: <=149 [541] TSH 2.073 uIU/mL 0.350 - 4.940 [541] Comment: DLDLREF RANGE: NEAR OR ABOVE OPTIMAL: 100-129 mg/dL BORDERLINE DLDLHIGH: 130-159 mg/dL HIGH: 160-189 mg/dL VERY HIGH: >=190 GLUCOSE The ADA recommends a fasting glucose of 99 mg/dL as the GLUCOSE upper limit of normal. TP Per package insert reference range for recumbent is 6.0 to 7.8 TP g/dL and for >60 y/o is lower by 0.2 g/dL. Plasma samples will TP generally have higher values (about 0.2 to 0.4 g/dL higher) due TP to presence of fibrinogen. TRIG REF RANGE: BORDERLINE HIGH: 150-199 mg/dL HIGH: 200-499 mg/dL TRIG VERY HIGH: >=500 mg/dL CHOL REF RANGE: BORDERLINE HIGH: 200-239 mg/dL HIGH: >=240 mg/dL HDLC Values >60 are a negative risk factor for heart disease. PHYSICAL EXAM: Vital Signs: T: 97.5 F [36.4 C] (08/26/2024 09:12) P: 69 (08/26/2024 09:12) R: 16 (08/26/2024 09:12) BP: 128/86 (08/26/2024 09:12) Pain: 6 (08/26/2024 09:12) Height: 72 in [182.9 cm] (07/09/2018 12:53) Weight: 209 lb [94.80 kg] (08/26/2024 09:12) Pulse Ox: 98% (08/26/2024 09:12) General: appears well Head, Ears, Eyes, Nose, and Throat: Neck: Chest/Lungs: CTA Cardiovascular: regular heart tones Gastrointestinal:faint scattered wheezes Extremities: no edema ASSESSMENT/PLAN: ED- requests tadalafil to be increased to 20 mg HTN/atrial fib/ HF- follows with [facility] cardiology GERD- renewal of omeprazole HLD- lipids at goal, continue statin anemia- requests Iron to now be through the [facility] arthritis- uses celebrex with some relief, his ankle has been bothering him-- referral placed to podiatry for possible injection HEALTH MAINTENANCE/CLINICAL REMINDERS: MEDICATION RECONCILIATION Medication Reconciliation report reviewed and discussed with patient/caregiver. VA prescription medications, non-VA prescription medications, OTC and herbal medications reviewed: Patient/caregiver verifies that the list is complete and accurate and voices understanding. Patient/caregiver in possession of printed medication list. FOLLOW-UP: 1 year with labs I am the Staff Provider. TOTAL TIME SPENT: Spent 30 minutes in care of this patient today including review of records, exam, and placing orders. /alber/ RANULFO HUI NURSE PRACTITIONER Signed: 08/26/2024 13:26 10/06/2024 ADDENDUM STATUS: COMPLETED [place] left message for this physician underwriter stating he needed to call to schedule his podiatry appointment. [place] did not call the clinic for scheduling in time for the consult. PCP agreeable and re-submitted the consult. When calls to clinic needs to schedule with podiatry for ankle pain. did no- show a 09/17/[address] Acharya. /alber/ ROBER PARDO REGISTERED NURSE Signed: 10/06/2024 12:57 RANULFO HUI [facility] Aug 26, 2024 09:04 AM PRIMARY CARE NURSI LILA NOTE: LOCAL TITLE: OUTPATIENT NURSING INTAKE NOTE (T) STANDARD TITLE: PRIMARY CARE NURSING NOTE DATE OF NOTE: AUG 26, 2024@09:04 ENTRY DATE: AUG 26, 2024@09:05:03 AUTHOR: DARBY RIVERA COSIGNER: URGENCY: STATUS: COMPLETED Hemoglobin A1C Results: Collection DT Specimen Test Name Result Units Ref Range 08/19/2024 09:25 BLOOD HEMOGLOBIN A1C 5.7 % 3.6 - 5.7 Comment: Values obtained from A1C measurements can vary. For typical A1C Comment: assays, a reported value of 7.0 could actually be between 6.72 and Comment: 7.28 if measured by a reference method. A reported value of 9.0 Comment: could actually be between 8.73 and 9.27. Ref: Comment: http://www.ngsp.org/CAPdata.asp 08/27/2023 13:13 BLOOD HEMOGLOBIN A1C 5.7 % 3.6 - 5.7 Comment: Values obtained from A1C measurements can vary. For typical A1C Comment: assays, a reported value of 7.0 could actually be between 6.72 and Comment: 7.28 if measured by a reference method. A reported value of 9.0 Comment: could actually be between 8.73 and 9.27. Ref: Comment: http://www.ngsp.org/CAPdata.asp 08/21/2022 09:43 BLOOD HEMOGLOBIN A1C 5.6 % 3.6 - 5.7 Review Allergies Allergies reviewed and updated per protocol. ALLERGIES/ADVERSE REACTIONS No Known Allergies MEDICATION LIST REVIEW REPORT OTC/Herbal was documented at this visit. 1. Has the patient been feeling sad or distressed? Yes. Name of PCP notified for follow-up/disposition: Jada Hui 2. Has the patient been having personal or family problems? No 3. Has the patient been experiencing worry and/or stress? No 4. Has the patient been having problems with drugs and/or alcohol? No 5. Crisis Line pocket card was provided to patient. No/patient declined [facility] not documented this visit. Clinical Reminders Activity Advance Directive Education Screen: Patient received information regarding Advance Directives: No - Patient declined information at this time. Alcohol Use Screen (AUDIT-C): Alcohol Screen: SCREEN FOR ALCOHOL (AUDIT-C) An alcohol screening test (AUDIT-C) was negative (score=1). 1. How often did you have a drink containing alcohol in the past year? Consider a drink to be a 12 ounce can or bottle of regular beer, 8 ounces of malt liquor, a 5 ounce glass of table wine, or a 1.5 ounce shot of liquor (like scotch, gin, or vodka). Monthly or less 2. How many drinks containing alcohol did you have on a typical day when you were drinking in the past year? One or two drinks 3. How often did you have six or more drinks on one occasion in the past year? Never Depression Screening: Perform PHQ-2 A PHQ-2 screen was performed. The score was 2 which is a negative screen for depression. Over the past two weeks, how often have you been bothered by the following problems? 1. Little interest or pleasure in doing things Several days 2. Feeling down, depressed, or hopeless Several days Fall Screen: Patient was asked if he/she has had any falls within the past 12 months. Patients states no falls in past 12 months. Teaching Method: Education Topic: Falls Risk Frail/Elderly Screen: ADL Screen - Bueno Index of Morgan in Activities of Daily Living Record INDEX of ADL. Score = 18 1. Bathing: either sponge bath, tub bath or shower. Receives no assistance (gets in and out of tub by self, if tub is usual means of bathing). 2. Dressing: gets clothes from closets and drawers, including under-clothes, outer garments and using fasteners (including braces if worn). Gets clothes and dresses self without assistance. 3. Toileting: going to the toilet room for bowel and urine elimination; cleaning self after elimination and arranging clothes. (May use cane, walker, or wheelchair, and manage bedpan or commode, emptying same next morning). No assistance needed. 4. Transfer: Moves in and out of bed, or chair, without assistance (may use support object like cane or walker). 5. Continence: Controls urination and bowel movement completely by self. 6. Feeding: Feeds self without assistance. IADL Screen - Jacquelyn Instrumental Activities of Daily Living Scale Ability to use telephone: (1 point) Operates Telephone on own initiative; looks up and dials numbers. Shopping: (1 point) Takes care of all shopping needs independently. Food preparation: (1 point) Plans, prepares, and serves adequate meals independently. Housekeeping: (1 point) Maintains house alone with occasional assistance (heavy work). Laundry: (1 point) Launders small items, rinses socks, stockings, etc. Mode of transportation: (1 point) Travels independently on public transportation or drives own car. Responsibility for own medications: (1 point) Is responsible for taking medications in correct dosages at correct times. Ability to handle finances: (1 point) Manages financial matters independently (budgets, writes checks, pays rent and bills, goes to bank); collects and keeps track of income. Total score: 8 points 8 = High function, independent 0 = Low function, dependent Homelessness/Food Insecurity Screen: In the past 2 months, have you been living in stable housing that you own, rent, or stay in as part of a household? Yes - Living in stable housing. Are you worried or concerned that in the next 2 months you may NOT have stable housing that you own, rent, or stay in as part of a household? No - Not worried about housing near future [facility] [place] reports the following: Within the past 12 months, you worried whether your food would run out before you got money to buy more. Never true Within the past 12 months, the food you bought just didn't last and you didn't have money to get more. Never true Patient Education Documentation: LEARNING NEEDS ASSESSMENT: Learning Preference: Visual Hearing Hands-on Written (in northway language) Barriers to Learning: No Barriers to Learning Social Influences Related to Educational Needs: No social barriers to learning Suicide Screen: C-SSRS Screening [place] Suicide Severity Rating Scale (C-SSRS) screener 1. Over the past month, have you wished you were or wished you could go to sleep and not wake up? No 2. Over the past month, have you had any actual thoughts of killing yourself? No 3. Over the past month, have you been thinking about how you might do this? Response not required due to responses to other questions. 4. Over the past month, have you had these thoughts and had some intention of acting on them? Response not required due to responses to other questions. 5. Over the past month, have you started to work out or worked out the details of how to kill yourself? Response not required due to responses to other questions. 6. If yes, at any time in the past month did you intend to carry out this plan? Response not required due to responses to other questions. 7. In your lifetime, have you ever done anything, started to do anything, or prepared to do anything to end your life (for example, collected pills, obtained a gun, gave away valuables, went to the roof but didn't jump)? No 8. If YES, was this within the past 3 months? Response not required due to responses to other questions. Tobacco Use Screening: The patient is a former cigarette smoker. The patient formerly used other types of tobacco. PTSD Screening: PC-PTSD-5 A PTSD screening test (PC-PTSD-5) was negative (score=0). IN THE PAST MONTH, have you ever had any experience that was so frightening, horrible or traumatic. For example: A serious accident or fire a physical or sexual assault or abuse An earthquake or flood A war Seeing someone be killed or seriously injured Having a loved one through homicide or suicide 1. Have you ever experienced this kind of event? NO 2. Had nightmares about the event(s) or thought about the event(s) when you did not want to? Response not required due to responses to other questions. 3. Tried hard not to think about the event(s) or went out of your way to avoid situations that reminded you of the event(s)? Response not required due to responses to other questions. 4. Been constantly on guard, watchful, or easily startled? Response not required due to responses to other questions. 5. [place] numb or detached from people, activities, or your surroundings? Response not required due to responses to other questions. 6. [place] guilty or unable to stop blaming yourself or others for the event(s) or any problems the event(s) may have caused? Response not required due to responses to other questions. RSV Immunization: Respiratory Syncytial Virus (RSV) Vaccine: Refused Agavideo (Abrysvo, RSVpreF vaccine). Immunization: RSV, BIVALENT, PROTEIN SUBUNIT RSVPREF, DILUENT RECONSTITUTED, 0.5 ML, PF Refusal Reason: PATIENT DECISION Patient refuses all immunization(s) in the RSV group Date Documented: 08/26/24 09:11 /alber/ DARBY RIVERA LICENSED PRACTICAL NURSE Signed: 08/26/2024 09:16 DARBY RIVERA OC
--- OUTSIDE RECORDS SUMMARY | 2024-10-28 06:30 | XMS_ITS | Encounter Summary ---
Author Name [facility] [place] [facility] Address [address] [place] [address] Care Team Providers Care Fiber Technician Name Role Phone RANULFO ELIZABETH Primary Care Provider Unavailabl e Insurance Providers: [...] Policy Hammer MEDICARE (WNR) MEDICARE (M) PART B Jun 28, 2014 PART B [id number] [phone] KERVINROSITA MARTHA PATIENT MEDICARE (WNR) MEDICARE (M) PART A Jun 28, 2014 PART A [id number] KERVINROSITA MARTHA PATIENT MEDICARE (WNR) MEDICARE (M) PART A Jun 28, 2014 PART A [id number] KERVINROSITA MARTHA PATIENT MEDICARE (WNR) MEDICARE (M) PART B Jun 28, 2014 PART B [id number] ROSITA GALEANA MARTHA PATIENT -FO R-LIFE [facility] Jul 01, 2015 [id number] KERVINROSITA MARTHA PATIENT Selected Encounter This section includes the information on record at [place] for the Encounter. Date/Time Encounter Type Encounter Description Reason Provider Source Oct 28, 2024 10:30 AM OFFICE O/P NEW MOD 45 MIN PODIATRY ICD-10-CM M25.571 Pain in right ankle and joints of right foot LOKI ROLON IHAleja Encounter Template Text not used by [facility] Assessments - Encounter Diagnoses This section includes the primary and secondary diagnoses documented for the Encounter. Date/Time Primary/Secondary Diagnosis Diagnosis Name Provider Source Oct 28, 2024 03:57 PM PRIMARY Pain in right ankle and joints of right foot [facility] Oct 28, 2024 03:57 PM SECONDARY Flat foot [pes planus] (acquired), right foot [facility] Oct 28, 2024 03:57 PM SECONDARY Posterior tibial tendinitis, right leg [facility] Oct 28, 2024 03:57 PM SECONDARY Tinea unguium [facility] Plan of Treatment: Future Appointments (+ 6 months) and Future Tests (+/- 45 days) The Plan of Treatment section includes future care activities for the patient from all [place] treatmentfacilities. This section includes future appointments and future orders which are active, pending or scheduled. Future Appointments This section includes appointments that were scheduled to occur 6 months from the date of the Encounter, up to a maximum of 20 appointments. The data comes from all [place] treatment facilities. Appointment Date/Time Appointment Type Appointme nt Facility Name Jan 04, 2025 03:30 PM AMBULATORY - SURGERY [facility] Social History: Smoking Status (Most current) and Tobacco Use (All prior to encounter date) This section includes the most current, and the historical, smoking and tobacco- related health factors from the [place] facility where the Encounter took place. Current Smoking Status This section includes the most current smoking, or tobacco-related health factor, from the [facility] facility where the Encounter took place. Date/Time Current Smoking Status Comment Facil ity Aug 26, 2024 09:00 AM VA-TOBACCO USE FORMER CIGARETTES [facility] Tobacco Use History This section includes a history of the smoking, or tobacco-related health factors, that were collected on or before the date of the Encounter. The data comes from the [place] facility where the Encounter took place. Date/Time [...] the Encounter. Date/Time Encounter Note(s) Provider Source Oct 28, 2024 10:41 AM PODIATRY NOTE: LOCAL TITLE: PODIATRY CONSULTATION SOAP (C) STANDARD TITLE: PODIATRY NOTE DATE OF NOTE: OCT 28, 2024@10:41 ENTRY DATE: OCT 28, 2024@10:41:27 AUTHOR: STEPHEN ROLON EXP COSIGNER: URGENCY: STATUS: COMPLETED SUBJECTIVE: The patient is a 74 year old MALE. Chief Complaint: left foot/ankle pain Past Medical History: Pt presents today for left ankle pain, present since about April. Sharp shooting pain up the leg. States it feels like nerve pain. Pain is 8/10. He would like to get back to walking. 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 He thinks this is probably contributed. Pt has had heel spur surgery many years ago. He says he had to have the one foot done twice(believes left). Spent many years painfree. He wears very old leather custom orthotics, he states he has tried firmer shell plastic orthotics without any success. He does feel improvement in his right foot pain with the orthotics in place however. He states he is Celebrex was also increased to twice daily by his PCP in regards to his foot pain which has improved his pain somewhat. Pt also questions fungal toenails, took a pill about a year ago. He denies any improvement in the nails with that medication PATIENT ALLERGIES DETAILED ALLERGIES/ADVERSE REACTIONS No Known Allergies AMRS - MEDS (REC SUCCINCT) Active and Recently Inpatient, Outpatient and Clinic Medications (including Supplies): Active Outpatient Medications Status ========= 1) FERROUS SULFATE 325MG TAB TAKE ONE TABLET BY MOUTH ACTIVE EVERY DAY (AN HOUR BEFORE OR TWO HOURS AFTER A MEAL; TAKE WITH FOOD IF THIS UPSETS YOUR STOMACH) 2) OMEPRAZOLE 20MG EC CAP TAKE ONE CAPSULE BY MOUTH ACTIVE (S) EVERY DAY A HALF HOUR BEFORE ONE MEAL 3) SIMVASTATIN 80MG TAB TAKE ONE-HALF TABLET BY MOUTH AT ACTIVE BEDTIME FOR CHOLESTEROL 4) TADALAFIL 20MG TAB TAKE ONE TABLET BY MOUTH AN HOUR ACTIVE BEFORE SEX (NO MORE THAN 1 DOSE PER 24 HOURS) NO NITRATES. DO NOT TAKE WITHIN 4 HOURS OF TAMSULOSIN Active Non-VA Medications Status ========= 1) Non-VA ACETAMINOPHEN TAB 325-650 MG MOUTH FOUR TIMES ACTIVE A DAY NEEDED 2) Non-VA CELECOXIB 200MG CAP 200MG MOUTH TWICE A DAY ACTIVE 3) Non-VA CITALOPRAM HYDROBROMIDE 20MG TAB 20MG MOUTH ACTIVE 4) Non-VA FUROSEMIDE 20MG TAB 20MG MOUTH EVERY DAY ACTIVE 5) Non-VA METOPROLOL TARTRATE 25MG TAB 25MG MOUTH TWICE ACTIVE A DAY 6) Non-VA MULTIVIT/OPHTH AREDS2/LUTE/ZEAX CAP/TAB 1 ACTIVE CAPSULE MOUTH DAILY 7) Non-VA MULTIVITAMINS B COMPLEX TAB 1 TAB MOUTH EVERY ACTIVE DAY 8) Non-VA PSYLLIUM ORAL PWD 1 ROUNDED TEASPOONFUL IN 8 ACTIVE OUNCES WATER/FLUID AND DRINK BY MOUTH EVERY DAY 9) Non-VA RIVAROXABAN 20MG TAB 20MG MOUTH EVERY EVENING ACTIVE 10) Non-VA TAMSULOSIN HCL 0.4MG CAP 0.4MG MOUTH AT ACTIVE BEDTIME 14 Total Medications MEDICATION RECONCILIATION MEDICATION RECONCILIATION REPORT reviewed and discussed with patient. [facility] prescription medications: Patient verifies that they are in receipt of a complete and accurate list of medications. Prescription medications from another source: Patient verifies that they are in receipt of a complete and accurate list of medications. Over the counter medications, vitamins, herbals, and nutritional supplements: Patient verifies that they are in receipt of a complete and accurate list of medications. ALLERGIES: ALLERGIES/ADVERSE REACTIONS No Known Allergies Food allergies: None known FOOT RISK LEVEL: DATE TIME HEALTH FACTOR ---- ---- No data available ACTIVE PROBLEM Anemia ([facility] [id number]) 08/26/2024 History of aortic valve replacement 08/28/2022 Hypertensive heart failure 08/28/2022 Diastolic heart failure 08/28/2022 Benign prostatic hyperplasia 07/13/2020 Hearing loss 07/10/2019 History of arthroplasty of left knee 08/28/2022 Hyperlipidemia 07/04/2016 Atrial fibrillation ([facility] 07/13/2020 [id number]) Erectile dysfunction ([facility] 07/13/2020 [id number]) Osteoarthritis 08/28/2022 Gastroesophageal reflux disease ([facility] 07/04/2016 CT [id number]) OBJECTIVE: VASCULAR : DP palpable 2/4 b/l PT palpable 2/4 b/l. CFT < 3 seconds to the hallux b/l. Sparse hair growth to the digits. No edema or varicosities. Skin temperature warm to warm from proximal to distal b/l. DERMATOLOGIC : Nails 1-5 b/l well-groomed however thickened, discolored. Webspaces 1-4 C,D, I. Skin appears well hydrated. No open lesions or hyperkeratosis noted. NEUROLOGIC : Protective sensation present at 10/10 sites left, 9/10 sites right as tested with SWMF b/l. Positive Tinel's to the tibial nerve on the right. MUSCULOSKELETAL : 5/5 muscle strength for all dorsiflexors, plantarflexors, inverters, everters, pain with inversion against resistance on the right. Pain to palpation to the medial midfoot on the right. Examined feet in relaxed calcaneal stance position with significant collapse of the medial longitudinal arch and inversion of the rear foot, greater on the right than the left. Attempted double leg heel rise with pain to the right, although it achieved inversion of bilateral calcaneus. Attempted to perform single leg heel rise on the right, unable, inversion of the calcaneus with single limb heel rise on the left. STJ ROM intact b/l, painfree ASSESSMENT: After reviewing the H&P and clinical findings, Dr. Rolon made the diagnosis of Right foot/ankle pain PTTD - right Onychomycosis RESPONSE TO CARE/RATIONALE FOR CARE: Patient presents today for right foot pain, treatment below PLAN: Treatment today consisted of: -Patient exam and evaluation -Dispensed power steps to patient. Attempted break-in period he has very worn out custom orthotics as an option if these do not work. I will also order custom orthotics for him. -Prescribed diclofenac gel for right foot pain. He can discuss decreasing Celebrex with his PCP if diclofenac gel effective. -We also did discuss physical therapy, bracing, surgical intervention. Will begin with conservative measures -We did discuss his onychomycosis. He has attempted oral therapy without improvement, would hold on further treatment at this time -RTC 2.5 months. /alber/ STEPHEN ROLON CUB REPORTER Signed: 10/28/2024 15:58 STEPHEN ROLON OC
--- OUTSIDE RECORDS SUMMARY | 2025-03-15 08:53 | XMS_ITS | Continuity of Care Document ---
Author Name [facility] Organization [facility] Care Team Providers Care Production Utility Worker Name Role Phone [facility] Unavailable Unavailable Problems Combined list of problems from [facility] and [facility] facilities. It does not include entries that were removed or entered in error. Problem Status Onset Date Problem Type Date of Resolution Comments Source Anemia (SCT 692365780) Active Condition [facility] Atrial fibrillation (SNOMED CT 82315147) Active Condition [facility] Benign prostatic hyperplasia Active Condition [facility] Diastolic heart failure Active Condition [facility] Erectile dysfunction (SNOMED CT 338174951) Active Condition [facility] Gastroesophageal reflux disease (SNOMED CT 494567996) Active Condition [facility] Hearing loss Active Condition [facility] History of aortic valve replacement Active Condition [facility] History of arthroplasty of left knee Active Condition [facility] Hyperlipidemia Active Condition [facility] Hypertensive heart failure Active Condition [facility] Osteoarthritis Active Condition [facility] Diagnosis: ICD-10-CM M25.571 Pain in right ankle and joints of right foot Active Diagnosis [facility] Diagnosis: ICD-10-CM D64.9 Anemia, unspecified Active Diagnosis [facility] Medications Combined list of outpatient medications from [facility] and [facility] facilities.Medications provided include 1) outpatient medications from the last 15 months, and 2) patient-reported medications. Medication Details Route Status Patient Instructions Prescription Expires Prescription Number Last Dispense Date Ordering Provider Order Date Order Qty Source ACETAMINOPH EN TAB TAKE 325-650 MG BY MOUTH QID PRN ORAL ACTIVE MALICDEDIANE MilesDES 2014 [facility] CELECOXIB (celecoxib) , 200 MG, CAPSULE, ORAL, [facility], 500 ea. BOTTLE Active [id number] 2023 90 Pharmac y Data Transac tion Service Facilit y CELECOXIB 200MG CAP TAKE 1 CAPSULE BY MOUTH TWICE A DAY ORAL ACTIVE MISAEL ELIZABETH 2024 [facility] CITALOPRAM HYDROBROMID E 20MG TAB TAKE ONE TABLET BY MOUTH ORAL ACTIVE CLARARE EMILEE A 2024 [facility] DICLOFENAC NA 1% GEL,TOP APPLY 2GM MEASURED ON DOSING CARD EXTERNAL LY TWICE A DAY NEEDED (GENTLY MASSAGE INTO SKIN - TOTAL BODY MAX 32GM PER DAY) *FLAMMAB LE: KEEP AWAY FROM HEAT AND FLAMES* FOR RIGHT FOOT PAIN (GENTLY MASSAGE INTO SKIN - TOTAL BODY MAX 32GM PER DAY) *FLAMMAB LE: KEEP AWAY FROM HEAT AND FLAMES* FOR RIGHT FOOT PAIN TOPICA L ACTIVE 10/29/2025 [id number] Codey ROLON 2024 100 [facility] FERROUS SO4 325MG TAB TAKE ONE TABLET BY MOUTH EVERY DAY (AN HOUR BEFORE OR TWO HOURS AFTER A MEAL; TAKE WITH FOOD IF THIS UPSETS YOUR STOMACH) ORAL ACTIVE 08/27/2025 [id number] CLARA,RE EMILEE A 2024 100 [facility] FUROSEMIDE 20MG TAB TAKE ONE TABLET BY MOUTH EVERY DAY ORAL ACTIVE CLARA,RE EMILEE A 2022 [facility] METOPROLOL TARTRATE 25MG TAB TAKE ONE TABLET BY MOUTH TWICE A DAY ORAL ACTIVE CLARA,RE EMILEE A 2024 [facility] MULTIVIT/OP HTH AREDS2/LUTE IN/ZEAXANTH IN CAP/TAB TAKE 1 CAPSULE BY MOUTH DAILY ORAL ACTIVE CLARARE EMILEE A 2024 [facility] MULTIVITAMI NS B COMPLEX TAB TAKE 1 TAB BY MOUTH EVERY DAY ORAL ACTIVE DIANE MEYERS LOURDES 2014 [facility] OMEPRAZOLE 20MG CAP,EC TAKE ONE CAPSULE BY MOUTH EVERY DAY A HALF HOUR BEFORE ONE MEAL ORAL SUSPEND ED 08/27/2025 [id number] 5 CLARA,RE EMILEE A 2024 90 [facility] OMEPRAZOLE 20MG CAP,EC TAKE ONE CAPSULE BY MOUTH EVERY DAY A HALF HOUR BEFORE ONE MEAL ORAL DISCONT INUED 08/28/2024 [id number] CLARA,RE EMILEE A 2023 90 [facility] PSYLLIUM PWDR,ORAL STIR 1 ROUNDED TEASPOON FUL IN 8 OUNCES WATER/FL UID AND DRINK BY MOUTH EVERY DAY ORAL ACTIVE MALICDEMDIANESUDARSHAN 2014 [facility] RIVAROXABAN 20MG TAB TAKE ONE TABLET BY MOUTH EVERY EVENING ORAL ACTIVE MALICDEMDIANESUDARSHAN 2014 [facility] simvastatin (U/D) 80 MG ORAL TAB TAKE ONE-HALF TABLET BY MOUTH AT BEDTIME FOR CHOLESTE ROL 08/28/2024 [id number] CLARA, RANULFO A [facility] SIMVA[facility] 80MG TAB TAKE ONE-HALF TABLET BY MOUTH AT BEDTIME FOR CHOLESTE ROL ORAL ACTIVE 08/27/2025 [id number] 5 CLARA,RE EMILEE A 2024 45 [facility] SIMVASTATIN 80MG TAB TAKE ONE-HALF TABLET BY MOUTH AT BEDTIME FOR CHOLESTE ROL ORAL DISCONT INUED 08/28/2024 [id number] CLARA,RE EMILEE A 2023 45 [facility] TADALAFIL 20MG TAB TAKE ONE TABLET BY MOUTH AN HOUR BEFORE SEX (NO MORE THAN 1 DOSE PER 24 HOURS) NO NITRATES . DO NOT TAKE WITHIN 4 HOURS OF TAMSULOS IN ORAL ACTIVE 08/27/2025 [id number] CLARA,RE EMILEE A 2024 18 [facility] TAMSULOSIN HCL 0.4MG CAP TAKE 1 CAPSULE BY MOUTH AT BEDTIME ORAL ACTIVE SAY, DYA 2019 [facility] Immunizations Combined list of available immunizations from the Department of Defense and Veterans Affairs facilities. Immunization Series Date Given Administered By Site Reaction Lot Number CVX Code Drug Retail Key Holder Status Comments Source COVID-19 ([employer]), MRNA, LNP-S, PF, TAMMI-SUCROSE, 30 MCG/0.3 ML (AGES 12+ YEARS) 2023 309 complet ed HISTORICA L INFORMATI ON - FROM OTHER REGISTRY, [facility] INFLUENZA, ADJUVANTED, TRIVALENT, PF 8 2023 168 complet ed HISTORICA L INFORMATI ON - FROM OTHER REGISTRY, [facility] COVID-19 (PFIZER), MRNA, LNP-S, PF, TAMMI-SUCROSE, 30 MCG/0.3 ML (AGES 12+ YEARS) 2023 309 complet ed HISTORICA L INFORMATI ON - FROM OTHER REGISTRY, [facility] INFLUENZA, HIGH-DOSE, QUADRIVALENT 2022 CECE VELASQUEZ LEFT DELTO ID [id number] A 197 complet ed [facility] [place], [facility] COVID-19 ([employer]ER), MRNA, LNP-S, BIVALENT, PF, 30 MCG/0.3 ML DOSE 5 2022 300 complet ed HISTORICA L INFORMATI ON - FROM OTHER REGISTRY, [facility] TDAP 2 2022 115 complet ed HISTORICA L INFORMATI ON - FROM OTHER REGISTRY, [facility] INFLUENZA, UNSPECIFIED FORMULATION 2022 88 complet ed HISTORICA L INFORMATI ON - SOURCE UNSPECIFI ED, [facility] INFLUENZA, INJECTABLE, MDCK, PRESERVATIVE FREE, QUADRIVALENT 6 2021 171 complet ed HISTORICA L INFORMATI ON - FROM OTHER REGISTRY, [facility] COVID-19 (PFIZER), MRNA, LNP-S, PF, 30 MCG/0.3 ML DOSE, TAMMI-SUCROSE (AGES 12+ YEARS) 4 2021 217 complet ed HISTORICA L INFORMATI ON - FROM OTHER REGISTRY, [facility] COVID-19, mRNA, LNP-S, PF, 30 mcg/0.3 mL dose, tammi-sucrose 2021 APARNA, () Not Given COVID-19, mRNA, LNP-S, PF, 30 mcg/0.3 mL dose, tammi-sucr ose DoD INFLUENZA, TRIVALENT, ADJUVANTED 5 2020 168 complet ed HISTORICA L INFORMATI ON - FROM OTHER REGISTRY, [facility] COVID-19 (PFIZER), MRNA, LNP-S, PF, 30 MCG/0.3 ML DOSE 3 2020 208 complet ed HISTORICA L INFORMATI ON - FROM OTHER REGISTRY, [facility] COVID-19 (PFIZER), MRNA, LNP-S, PF, 30 MCG/0.3 ML DOSE 2 2020 208 complet ed HISTORICA L INFORMATI ON - FROM OTHER REGISTRY, [facility] COVID-19 (PFIZER), MRNA, LNP-S, PF, 30 MCG/0.3 ML DOSE 1 2020 208 complet ed HISTORICA L INFORMATI ON - FROM OTHER REGISTRY, [facility] INFLUENZA, TRIVALENT, ADJUVANTED 4 2019 168 complet ed HISTORICA L INFORMATI ON - FROM OTHER REGISTRY, [facility] INFLUENZA (HISTORICAL) [address] Klein[address] [facility] ZOSTER RECOMBINANT 2018 187 complet ed [facility] ZOSTER RECOMBINANT 2017 187 complet ed [facility] INFLUENZA, TRIVALENT, ADJUVANTED 3 2017 168 complet ed HISTORICA L INFORMATI ON - FROM OTHER REGISTRY, [facility] INFLUENZA (HISTORICAL) 2017 88 complet ed medicine shoppe [facility] INFLUENZA, TRIVALENT, ADJUVANTED 2 2016 168 complet ed HISTORICA L INFORMATI ON - FROM OTHER REGISTRY, [facility] INFLUENZA (HISTORICAL) 2016 88 complet ed [employer] [facility] INFLUENZA, HIGH DOSE SEASONAL 2015 135 complet ed [facility] ZOSTER LIVE 2015 121 complet ed [facility] INFLUENZA, UNSPECIFIED FORMULATION 1 2015 88 complet ed HISTORICA L INFORMATI ON - FROM OTHER REGISTRY, [facility] PNEUMOCOCCAL POLYSACCHARID E PPV23 1 2015 33 complet ed HISTORICA L INFORMATI ON - FROM OTHER REGISTRY, [facility] INFLUENZA (HISTORICAL) 2014 88 complet ed PCP [facility] PNEUMOCOCCAL CONJUGATE PCV 13 2014 133 complet ed yes [facility] INFLUENZA (HISTORICAL) 2013 88 complet ed PMD [facility] INFLUENZA (HISTORICAL) 2012 88 complet ed family 's office [facility] INFLUENZA (HISTORICAL) [address] [facility] INFLUENZA (HISTORICAL) 2009 88 complet ed medicine shop in [facility] PNEUMOCOCCAL POLYSACCHARID E PPV23 2009 [address] office [facility] PNEUMOCOCCAL, UNSPECIFIED FORMULATION 2009 [address] office [facility] NOVEL INFLUENZA-H1N 1-09, PRESERVATIVE- FREE 1 2008 126 complet ed HISTORICA L INFORMATI ON - FROM OTHER REGISTRY, [facility] NOVEL INFLUENZA-H1N 1-09, ALL FORMULATIONS 2008 128 complet ed [facility] INFLUENZA (HISTORICAL) 2008 88 complet ed local [facility] TD(ADULT) UNSPECIFIED FORMULATION 1 2001 139 complet ed HISTORICA L INFORMATI ON - FROM OTHER REGISTRY, [facility] Results Combined list of recent chemistry, hematology and other laboratory results from Department of Defense and Veterans Affairs, ranging from 15 months to all on record, depending upon the facility. Order Name Results Value Reference Range Date Interpretation Specimen Comments Source LIPID PROFILE CHOLESTERO L [MASS/VOLU ME] IN SERUM OR PLASMA 166 mg/dL <199 - 199 08/19 Specimen Type: PLASMA Comment: DLDLREF RANGE: NEAR [...] risk factor for heart disease. Ordering Provider: AMADOR ELIZABETH CCA Report Released Date/Time: Jul 30, 2024 12:23 PM Reporting Lab: [address] [address] Performing Lab: [address] [phone] [facility] LIPID PROFILE CHOLESTERO L IN LDL [MASS/VOLU ME] IN SERUM OR PLASMA BY DIRECT ASSAY 91 mg/dL 0 - 99 08/19 Specimen Type: PLASMA Comment: DLDLREF RANGE: NEAR [...] risk factor for heart disease. Ordering Provider: AMADOR ELIZABETH CCA Report Released Date/Time: Jul 30, 2024 12:23 PM Reporting Lab: [address] [phone] Performing Lab: [address] [address] [facility] LIPID PROFILE CHOLESTERO L IN HDL [MASS/VOLU ME] IN SERUM OR PLASMA 72 mg/dL 40 08/19 Specimen Type: PLASMA Comment: DLDLREF RANGE: NEAR [...] risk factor for heart disease. Ordering Provider: AMADOR ELIZABETH CCA Report Released Date/Time: Jul 30, 2024 12:23 PM Reporting Lab: [address] [address] Performing Lab: [place] [phone] [facility] LIPID PROFILE TRIGLYCERI DE [MASS/VOLU ME] IN SERUM OR PLASMA 86 mg/dL <149 - 149 08/19 Specimen Type: PLASMA Comment: DLDLREF RANGE: NEAR [...] risk factor for heart disease. Ordering Provider: AMADOR ELIZABETH CCA Report Released Date/Time: Jul 30, 2024 12:23 PM Reporting Lab: [address] [address] Performing Lab: [address] [phone] [facility] COMPREHE NSIVE METABOLI C PANEL ALBUMIN [MASS/VOLU ME] IN SERUM OR PLASMA 4.2 g/dL 3.5 - 4.8 08/19 Specimen Type: PLASMA Comment: DLDLREF RANGE: NEAR [...] risk factor for heart disease. Ordering Provider: AMADOR ELIZABETH CCA Report Released Date/Time: Jul 30, 2024 12:23 PM Reporting Lab: [place] [phone] Performing Lab: [place] [phone] COMPREHE NSIVE METABOLI C PANEL ALKALINE PHOSPHATAS E [ENZYMATIC ACTIVITY/V OLUME] IN SERUM OR PLASMA 59 U/L 40 - 150 08/19 Specimen Type: PLASMA Comment: DLDLREF RANGE: NEAR [...] risk factor for heart disease. Ordering Provider: AMADOR ELIZABETH CCA Report Released Date/Time: Jul 30, 2024 12:23 PM Reporting Lab: [place] [phone] Performing Lab: [place] [phone] [facility] COMPREHE NSIVE METABOLI C PANEL ALANINE AMINOTRANS FERASE [ENZYMATIC ACTIVITY/V OLUME] IN SERUM OR PLASMA 21 U/L <55 - 55 08/19 Specimen Type: PLASMA Comment: DLDLREF RANGE: NEAR [...] risk factor for heart disease. Ordering Provider: AMADOR ELIZABETH CCA Report Released Date/Time: Jul 30, 2024 12:23 PM Reporting Lab: [place] [phone] Performing Lab: [place] [phone] NSIVE METABOLI C PANEL ASPARTATE AMINOTRANS FERASE [ENZYMATIC ACTIVITY/V OLUME] IN SERUM OR PLASMA 26 U/L 10 - 40 08/19 Specimen Type: PLASMA Comment: DLDLREF RANGE: NEAR [...] risk factor for heart disease. Ordering Provider: AMADOR ELIZABETH CCA A Report Released Date/Time: Jul 30, 2024 12:23 PM Reporting Lab: [place] [phone] Performing Lab: [place] [phone] [facility] COMPREHE NSIVE METABOLI C PANEL UREA NITROGEN [MASS/VOLU ME] IN SERUM OR PLASMA 25.0 mg/dL 8.4 - 25.7 08/19 Specimen Type: PLASMA Comment: DLDLREF RANGE: NEAR [...] risk factor for heart disease. Ordering Provider: AMADOR ELIZABETH CCA A Report Released Date/Time: Jul 30, 2024 12:23 PM Reporting Lab: [address] [address] Performing Lab: [place] [phone] [facility] COMPREHE NSIVE METABOLI C PANEL CALCIUM [MASS/VOLU ME] IN SERUM OR PLASMA 9.3 mg/dL 8.6 - 10.3 08/19 Specimen Type: PLASMA Comment: DLDLREF RANGE: NEAR [...] risk factor for heart disease. Ordering Provider: AMADOR ELIZABETH CCA Report Released Date/Time: Jul 30, 2024 12:23 PM Reporting Lab: [address] [phone] Performing Lab: [address] [phone] [facility] COMPREH NSIVE METABOLI C PANEL CREATININE [MASS/VOLU ME] IN SERUM OR PLASMA 1.0 mg/dL 0.7 - 1.3 08/19 Specimen Type: PLASMA Comment: DLDLREF RANGE: NEAR [...] risk factor for heart disease. Ordering Provider: AMADOR ELIZABETH CCA A Report Released Date/Time: Jul 30, 2024 12:23 PM Reporting Lab: [place] [phone] Performing Lab: [place] [phone] [facility] COMPREHE NSIVE METABOLI C PANEL CARBON DIOXIDE, TOTAL [MOLES/VOL UME] IN SERUM OR PLASMA 27 mmol/L 22 - 30 08/19 Specimen Type: PLASMA Comment: DLDLREF RANGE: NEAR [...] risk factor for heart disease. Ordering Provider: AMADOR ELIZABETH CCA A Report Released Date/Time: Jul 30, 2024 12:23 PM Reporting Lab: [place] [phone] Performing Lab: [place] [phone] [facility] COMPREHE NSIVE METABOLI C PANEL GLUCOSE [MASS/VOLU ME] IN SERUM OR PLASMA 101 mg/dL 74 - 99 08/19 H Specimen Type: PLASMA Comment: DLDLREF RANGE: NEAR [...] risk factor for heart disease. Ordering Provider: AMADOR ELIZABETH CCA A Report Released Date/Time: Jul 30, 2024 12:23 PM Reporting Lab: [place] [phone] Performing Lab: [place] [phone] [facility] COMPREHE NSIVE METABOLI C PANEL PROTEIN [MASS/VOLU ME] IN SERUM OR PLASMA 7.0 g/dL 6.4 - 8.3 08/19 Specimen Type: PLASMA Comment: DLDLREF RANGE: NEAR [...] risk factor for heart disease. Ordering Provider: AMADOR ELIZABETH CCA A Report Released Date/Time: Jul 30, 2024 12:23 PM Reporting Lab: [address] [phone] Performing Lab: [place] [phone] [facility] COMPREHE NSIVE METABOLI C PANEL SODIUM [MOLES/VOL UME] IN SERUM OR PLASMA 142 mmol/L 134 - 144 08/19 Specimen Type: PLASMA Comment: DLDLREF RANGE: NEAR [...] risk factor for heart disease. Ordering Provider: AMADOR ELIZABETH CCA Report Released Date/Time: Jul 30, 2024 12:23 PM Reporting Lab: [address] [phone] Performing Lab: [address] [phone] [facility] COMPREHE NSIVE METABOLI C PANEL CHLORIDE [MOLES/VOL UME] IN SERUM OR PLASMA 109 mmol/L 99 - 112 08/19 Specimen Type: PLASMA Comment: DLDLREF RANGE: NEAR [...] risk factor for heart disease. Ordering Provider: AMADOR ELIZABETH CCA A Report Released Date/Time: Jul 30, 2024 12:23 PM Reporting Lab: [address] [address] Performing Lab: [place] [phone] [facility] COMPREHE NSIVE METABOLI C PANEL BILIRUBIN. TOTAL [MASS/VOLU ME] IN SERUM OR PLASMA 0.4 mg/dL 0.2 - 1.2 08/19 Specimen Type: PLASMA Comment: DLDLREF RANGE: NEAR [...] risk factor for heart disease. Ordering Provider: AMADOR ELIZABETH CCA A Report Released Date/Time: Jul 30, 2024 12:23 PM Reporting Lab: [address] [phone] Performing Lab: [address] [address] [facility] COMPREHE NSIVE METABOLI C PANEL POTASSIUM [MOLES/VOL UME] IN SERUM OR PLASMA 4.6 mmol/L 3.5 - 5.1 08/19 Specimen Type: PLASMA Comment: DLDLREF RANGE: NEAR [...] risk factor for heart disease. Ordering Provider: AMADOR ELIZABETH CCA A Report Released Date/Time: Jul 30, 2024 12:23 PM Reporting Lab: [place] [phone] Performing Lab: [place] [phone] [facility] COMPREH NSIVE METABOLI C PANEL ANION GAP IN SERUM OR PLASMA 11 mmol/L - 08/19 Specimen Type: PLASMA Comment: DLDLREF RANGE: NEAR [...] risk factor for heart disease. Ordering Provider: AMADOR ELIZABETH CCA A Report Released Date/Time: Jul 30, 2024 12:23 PM Reporting Lab: [address] [address] Performing Lab: [place] [phone] [place] [address] COMPREHE NSIVE METABOLI C PANEL GLOMERULAR FILTRATION RATE/1.73 SQ M.PREDICTE D [VOLUME RATE/AREA] IN SERUM, PLASMA OR BLOOD BY CREATININE -BASED FORMULA (CKD-EPI 2020) 78.0 mL/min 08/19 Specimen Type: PLASMA Comment: DLDLREF RANGE: NEAR [...] risk factor for heart disease. Ordering Provider: AMADOR ELIZABETH CCA Report Released Date/Time: Jul 30, 2024 12:23 PM Reporting Lab: [place] [phone] Performing Lab: [place] [phone] [facility] HEMOGLOB IN A1C HEMOGLOBIN A1C/HEMOGL OBIN.TOTAL IN BLOOD 5.7 3.6 - 5.7 08/19 Specimen Type: BLOOD Comment: Values obtained from A1C measurement s can vary. For typical A1C assays, a reported value of 7.0 could actually be between 6.72 and 7.28 if measured by a reference method. A reported value of 9.0 could actually be between 8.73 and 9.27. Ref: http://www. ngsp.org/[place] Pdata.asp Ordering Provider: AMADOR ELIZABETH CCA Report Released Date/Time: Jul 30, 2024 12:23 PM Reporting Lab: [place] [phone] Performing Lab: [place] [phone] [facility] TSH THYROTROPI N [UNITS/VOL UME] IN SERUM OR PLASMA BY DETECTION LIMIT <= 0.005 MIU/L 2.073 u[IU]/mL 0.350 - 4.940 08/19 Specimen Type: PLASMA Comment: DLDLREF RANGE: NEAR [...] risk factor for heart disease. Ordering Provider: AMADOR ELIZABETH CCA Report Released Date/Time: Jul 30, 2024 12:23 PM Reporting Lab: [place] [phone] Performing Lab: [place] [phone] CBC LEUKOCYTES [#/VOLUME] IN BLOOD BY AUTOMATED COUNT 4.3 10*3/uL 3.6 - 11.0 08/19 Specimen Type: BLOOD No comment entered. Ordering Provider: AMADOR ELIZABETH CCA A Report Released Date/Time: Jul 30, 2024 12:23 PM Reporting Lab: [place] [phone] Performing Lab: [place] [phone] [facility] CBC ERYTHROCYT ES [#/VOLUME] IN BLOOD BY AUTOMATED COUNT 4.30 10*6/uL 4.47 - 5.83 08/19 L Specimen Type: BLOOD No comment entered. Ordering Provider: AMADOR ELIZABETH CCA A Report Released Date/Time: Jul 30, 2024 12:23 PM Reporting Lab: [address] [phone] Performing Lab: [place] [phone] [facility] CBC HEMOGLOBIN [MASS/VOLU ME] IN BLOOD 13.4 g/dL 13.6 - 17.4 08/19 L Specimen Type: BLOOD No comment entered. Ordering Provider: AMADOR ELIZABETH CCA A Report Released Date/Time: Jul 30, 2024 12:23 PM Reporting Lab: [address] [address] Performing Lab: [place] [phone] [place] [address] CBC HEMATOCRIT [VOLUME FRACTION] OF BLOOD BY AUTOMATED COUNT 40.5 40.0 - 51.0 08/19 Specimen Type: BLOOD No comment entered. Ordering Provider: AMADOR ELIZABETH CCA A Report Released Date/Time: Jul 30, 2024 12:23 PM Reporting Lab: [address] [address] Performing Lab: [place] [phone] [facility] CBC MCV [ENTITIC VOLUME] BY AUTOMATED COUNT 94.0 fL 80.0 - 96.0 08/19 Specimen Type: BLOOD No comment entered. Ordering Provider: AMADOR ELIZABETH CCA A Report Released Date/Time: Jul 30, 2024 12:23 PM Reporting Lab: [address] [address] Performing Lab: [place] [phone] [facility] CBC MCH [ENTITIC MASS] BY AUTOMATED COUNT 31.2 pg 27.0 - 31.0 08/19 H Specimen Type: BLOOD No comment entered. Ordering Provider: AMADOR ELIZABETH CCA A Report Released Date/Time: Jul 30, 2024 12:23 PM Reporting Lab: [address] [address] Performing Lab: [address] [address] [facility] CBC MCHC [MASS/VOLU ME] BY AUTOMATED COUNT 33.2 g/dL 31.5 - 36.5 08/19 Specimen Type: BLOOD No comment entered. Ordering Provider: AMADOR ELIZABETH CCA A Report Released Date/Time: Jul 30, 2024 12:23 PM Reporting Lab: [address] [phone] Performing Lab: [address] [phone] [place] [address] CBC PLATELETS [#/VOLUME] IN BLOOD BY AUTOMATED COUNT 203 10*3/uL 150 - 400 08/19 Specimen Type: BLOOD No comment entered. Ordering Provider: AMADOR ELIZABETH CCA A Report Released Date/Time: Jul 30, 2024 12:23 PM Reporting Lab: [place] [phone] Performing Lab: [place] [phone] CBC LYMPHOCYTE S/100 LEUKOCYTES IN BLOOD BY AUTOMATED COUNT 21.7 21.0 - 51.0 08/19 Specimen Type: BLOOD No comment entered. Ordering Provider: AMADOR ELIZABETH CCA A Report Released Date/Time: Jul 30, 2024 12:23 PM Reporting Lab: [address] [phone] Performing Lab: [address] [phone] [place] [address] CBC MONOCYTES/ 100 LEUKOCYTES IN BLOOD BY AUTOMATED COUNT 11.5 4.0 - 8.0 08/19 H Specimen Type: BLOOD No comment entered. Ordering Provider: AMADOR ELIZABETH CCA A Report Released Date/Time: Jul 30, 2024 12:23 PM Reporting Lab: [address] [address] Performing Lab: [place] [phone] [facility] CBC NUCLEATED ERYTHROCYT ES/100 LEUKOCYTES [RATIO] IN BLOOD BY MANUAL COUNT 0.0 /100{WBC s} 08/19 Specimen Type: BLOOD No comment entered. Ordering Provider: AMADOR ELIZABETH CCA A Report Released Date/Time: Jul 30, 2024 12:23 PM Reporting Lab: [address] [address] Performing Lab: [address] [phone] [facility] CBC ERYTHROCYT E DISTRIBUTI ON WIDTH [RATIO] BY AUTOMATED COUNT 13.5 11.2 - 15.8 08/19 Specimen Type: BLOOD No comment entered. Ordering Provider: AMADOR ELIZABETH CCA A Report Released Date/Time: Jul 30, 2024 12:23 PM Reporting Lab: [place] [phone] Performing Lab: [place] [phone] CBC NEUTROPHIL S/100 LEUKOCYTES IN BLOOD BY AUTOMATED COUNT 56.5 54.0 - 78.0 08/19 Specimen Type: BLOOD No comment entered. Ordering Provider: AMADOR ELIZABETH CCA A Report Released Date/Time: Jul 30, 2024 12:23 PM Reporting Lab: [place] [phone] Performing Lab: [place] [id number] CBC EOSINOPHIL S/100 LEUKOCYTES IN BLOOD BY AUTOMATED COUNT 8.3 0.0 - 3.0 08/19 H Specimen Type: BLOOD No comment entered. Ordering Provider: AMADOR ELIZABETH CCA A Report Released Date/Time: Jul 30, 2024 12:23 PM Reporting Lab: [place] [phone] Performing Lab: [place] [id number] CBC BASOPHILS/ 100 LEUKOCYTES IN BLOOD BY AUTOMATED COUNT 2.0 0.0 - 3.0 08/19 Specimen Type: BLOOD No comment entered. Ordering Provider: AMADOR ELIZABETH CCA A Report Released Date/Time: Jul 30, 2024 12:23 PM Reporting Lab: [address] [phone] Performing Lab: [place] [id number] [place] [address] CBC LYMPHOCYTE S [#/VOLUME] IN BLOOD BY AUTOMATED COUNT 0.9 10*3/uL 0.8 - 5.0 08/19 Specimen Type: BLOOD No comment entered. Ordering Provider: AMADOR ELIZABETH CCA A Report Released Date/Time: Jul 30, 2024 12:23 PM Reporting Lab: [place] [phone] Performing Lab: [address] [phone] [facility] CBC NEUTROPHIL S [#/VOLUME] IN BLOOD 2.4 10*3/uL 1.9 - 8.6 08/19 Specimen Type: BLOOD No comment entered. Ordering Provider: AMADOR ELIZABETH CCA Report Released Date/Time: Jul 30, 2024 12:23 PM Reporting Lab: [place] [phone] Performing Lab: [place] [phone] [facility] CBC BASOPHILS [#/VOLUME] IN BLOOD BY AUTOMATED COUNT 0.1 10*3/uL 0.0 - 0.3 08/19 Specimen Type: BLOOD No comment entered. Ordering Provider: AMADOR ELIZABETH CCA Report Released Date/Time: Jul 30, 2024 12:23 PM Reporting Lab: [place] [phone] Performing Lab: [place] [phone] [facility] CBC MONOCYTES [#/VOLUME] IN BLOOD BY AUTOMATED COUNT 0.5 10*3/uL 0.1 - 0.9 08/19 Specimen Type: BLOOD No comment entered. Ordering Provider: AMADOR ELIZABETH CCA Report Released Date/Time: Jul 30, 2024 12:23 PM Reporting Lab: [place] [phone] Performing Lab: [place] [phone] [facility] CBC EOSINOPHIL S [#/VOLUME] IN BLOOD BY AUTOMATED COUNT 0.4 10*3/uL 0.0 - 0.3 08/19 H Specimen Type: BLOOD No comment entered. Ordering Provider: AMADOR ELIZABETH CCA A Report Released Date/Time: Jul 30, 2024 12:23 PM Reporting Lab: [place] [phone] Performing Lab: [place] [phone] [facility] CBC PLATELET MEAN VOLUME [ENTITIC VOLUME] IN BLOOD BY AUTOMATED COUNT 8.2 fL 7.4 - 11.4 08/19 Specimen Type: BLOOD No comment entered. Ordering Provider: CLARA,AMADOR CCA A Report Released Date/Time: Jul 30, 2024 12:23 PM Reporting Lab: [address] [phone] Performing Lab: [place] [phone] [facility] URINALYS IS SPECIFIC GRAVITY OF URINE 1.027 1.016 - 1.022 08/19 H Specimen Type: URINE No comment entered. Ordering Provider: AMADOR ELIZABETH CCA A Report Released Date/Time: Jul 30, 2024 12:23 PM Reporting Lab: [address] [phone] Performing Lab: [place] [phone] [facility] URINALYS IS GLUCOSE [MASS/VOLU ME] IN URINE BY TEST STRIP Negative mg/dL 08/19 Specimen Type: URINE No comment entered. Ordering Provider: AMADOR ELIZABETH CCA A Report Released Date/Time: Jul 30, 2024 12:23 PM Reporting Lab: [place] [phone] Performing Lab: [address] [phone] [facility] URINALYS IS PROTEIN [MASS/VOLU ME] IN URINE BY TEST STRIP Negative mg/dL 08/19 Specimen Type: URINE No comment entered. Ordering Provider: AMADOR ELIZABETH CCA A Report Released Date/Time: Jul 30, 2024 12:23 PM Reporting Lab: [address] [phone] Performing Lab: [place] [phone] [facility] URINALYS IS PH OF URINE BY TEST STRIP 5.5 5.0 - 8.0 08/19 Specimen Type: URINE No comment entered. Ordering Provider: AMADOR ELIZABETH CCA A Report Released Date/Time: Jul 30, 2024 12:23 PM Reporting Lab: [address] [phone] Performing Lab: [address] [phone] [facility] URINALYS IS NITRITE [PRESENCE] IN URINE BY TEST STRIP Negative 08/19 Specimen Type: URINE No comment entered. Ordering Provider: AMADOR ELIZABETH CCA A Report Released Date/Time: Jul 30, 2024 12:23 PM Reporting Lab: [place] [phone] Performing Lab: [place] [phone] URINALYS IS LEUKOCYTE ESTERASE [PRESENCE] IN URINE BY TEST STRIP Negative 08/19 Specimen Type: URINE No comment entered. Ordering Provider: AMADOR ELIZABETH CCA A Report Released Date/Time: Jul 30, 2024 12:23 PM Reporting Lab: [place] [phone] Performing Lab: [place] [phone] URINALYS IS CLARITY OF URINE Clear 08/19 Specimen Type: URINE No comment entered. Ordering Provider: AMADOR ELIZABETH CCA A Report Released Date/Time: Jul 30, 2024 12:23 PM Reporting Lab: [place] [phone] Performing Lab: [place] [phone] URINALYS IS BILIRUBIN. TOTAL [MASS/VOLU ME] IN URINE BY TEST STRIP Negative mg/dL - 0.4 08/19 Specimen Type: URINE No comment entered. Ordering Provider: AMADOR ELIZABETH CCA A Report Released Date/Time: Jul 30, 2024 12:23 PM Reporting Lab: [place] [phone] Performing Lab: [place] [phone] URINALYS IS HEMOGLOBIN [PRESENCE] IN URINE BY TEST STRIP Negative mg/dL <0.05 - 0.05 08/19 Specimen Type: URINE No comment entered. Ordering Provider: AMADOR ELIZABETH CCA A Report Released Date/Time: Jul 30, 2024 12:23 PM Reporting Lab: [place] [phone] Performing Lab: [place] [phone] [place] [address] URINALYS IS UROBILINOG EN [MASS/VOLU ME] IN URINE Negative mg/dL - 1 08/19 Specimen Type: URINE No comment entered. Ordering Provider: AMADOR ELIZABETH CCA Report Released Date/Time: Jul 30, 2024 12:23 PM Reporting Lab: [place] [phone] Performing Lab: [place] [phone] [facility] URINALYS IS KETONES [MASS/VOLU ME] IN URINE BY TEST STRIP Negative mg/dL - 9 08/19 Specimen Type: URINE No comment entered. Ordering Provider: AMADOR ELIZABETH CCA A Report Released Date/Time: Jul 30, 2024 12:23 PM Reporting Lab: [place] [phone] Performing Lab: [place] [phone] [facility] URINALYS IS COLOR OF URINE Yellow [none] 08/19 Specimen Type: URINE No comment entered. Ordering Provider: AMADOR ELIZABETH CCA A Report Released Date/Time: Jul 30, 2024 12:23 PM Reporting Lab: [place] [phone] Performing Lab: [place] [phone] [facility] LIPID PROFILE CHOLESTERO L [MASS/VOLU ME] IN SERUM OR PLASMA 191 mg/dL 135 - 200 08/27 Specimen Type: PLASMA Comment: CREATININE eGFR was calculated using the CKD-EPI 2020 equation. TRIGLYCERID E REF RANGE: NORMAL <150 mg/dL BORDERLINE HIGH: 150-199 TRIGLYCERID E mg/dL HIGH: 200-499 mg/dL VERY HIGH: >=500 mg/dL Ordering Provider: AMADOR ELIZABETH CCA A Report Released Date/Time: Aug 15, 2023 04:22 PM Reporting Lab: [place] [phone] Performing Lab: [place] [phone] [facility] LIPID PROFILE CHOLESTERO L IN LDL [MASS/VOLU ME] IN SERUM OR PLASMA BY DIRECT ASSAY 110.0 mg/dL 0 - 110 08/27 Specimen Type: PLASMA Comment: CREATININE eGFR was calculated using the CKD-EPI 2020 equation. TRIGLYCERID E REF RANGE: NORMAL <150 mg/dL BORDERLINE HIGH: 150-199 TRIGLYCERID E mg/dL HIGH: 200-499 mg/dL VERY HIGH: >=500 mg/dL Ordering Provider: AMADOR ELIZABETH CCA A Report Released Date/Time: Aug 15, 2023 04:22 PM Reporting Lab: [place] [phone] Performing Lab: [place] [phone] [facility] LIPID PROFILE CHOLESTERO L IN HDL [MASS/VOLU ME] IN SERUM OR PLASMA 58 mg/dL 40 - 60 08/27 Specimen Type: PLASMA Comment: CREATININE eGFR was calculated using the CKD-EPI 2020 equation. TRIGLYCERID E REF RANGE: NORMAL <150 mg/dL BORDERLINE HIGH: 150-199 TRIGLYCERID E mg/dL HIGH: 200-499 mg/dL VERY HIGH: >=500 mg/dL Ordering Provider: AMADOR ELIZABETH CCA A Report Released Date/Time: Aug 15, 2023 04:22 PM Reporting Lab: [place] [phone] Performing Lab: [place] [phone] [place] [address] LIPID PROFILE TRIGLYCERI DE [MASS/VOLU ME] IN SERUM OR PLASMA 165 mg/dL 0 - 149 08/27 H Specimen Type: PLASMA Comment: CREATININE eGFR was calculated using the CKD-EPI 2020 equation. TRIGLYCERID E REF RANGE: NORMAL <150 mg/dL BORDERLINE HIGH: 150-199 TRIGLYCERID E mg/dL HIGH: 200-499 mg/dL VERY HIGH: >=500 mg/dL Ordering Provider: AMADOR ELIZABETH CCA A Report Released Date/Time: Aug 15, 2023 04:22 PM Reporting Lab: [address] [phone] Performing Lab: [place] [phone] [facility] COMPREHE NSIVE METABOLI C PANEL ALBUMIN [MASS/VOLU ME] IN SERUM OR PLASMA 4.1 g/dL 3.2 - 4.8 08/27 Specimen Type: PLASMA Comment: CREATININE eGFR was calculated using the CKD-EPI 2020 equation. TRIGLYCERID E REF RANGE: NORMAL <150 mg/dL BORDERLINE HIGH: 150-199 TRIGLYCERID E mg/dL HIGH: 200-499 mg/dL VERY HIGH: >=500 mg/dL Ordering Provider: AMADOR ELIZABETH CCA A Report Released Date/Time: Aug 15, 2023 04:22 PM Reporting Lab: [place] [phone] Performing Lab: [address] COMPREHE NSIVE METABOLI C PANEL ALKALINE PHOSPHATAS E [ENZYMATIC ACTIVITY/V OLUME] IN SERUM OR PLASMA 55 U/L 46 - 116 08/27 Specimen Type: PLASMA Comment: CREATININE eGFR was calculated using the CKD-EPI 2020 equation. TRIGLYCERID E REF RANGE: NORMAL <150 mg/dL BORDERLINE HIGH: 150-199 TRIGLYCERID E mg/dL HIGH: 200-499 mg/dL VERY HIGH: >=500 mg/dL Ordering Provider: AMADOR ELIZABETH CCA A Report Released Date/Time: Aug 15, 2023 04:22 PM Reporting Lab: [place] [phone] Performing Lab: [address] COMPREHE NSIVE METABOLI C PANEL ALANINE AMINOTRANS FERASE [ENZYMATIC ACTIVITY/V OLUME] IN SERUM OR PLASMA 17 U/L 10 - 45 08/27 Specimen Type: PLASMA Comment: CREATININE eGFR was calculated using the CKD-EPI 2020 equation. TRIGLYCERID E REF RANGE: NORMAL <150 mg/dL BORDERLINE HIGH: 150-199 TRIGLYCERID E mg/dL HIGH: 200-499 mg/dL VERY HIGH: >=500 mg/dL Ordering Provider: AMADOR ELIZABETH CCA A Report Released Date/Time: Aug 15, 2023 04:22 PM Reporting Lab: [place] [phone] Performing Lab: [address] COMPREHE NSIVE METABOLI C PANEL ASPARTATE AMINOTRANS FERASE [ENZYMATIC ACTIVITY/V OLUME] IN SERUM OR PLASMA 29 U/L 0 - 33.9 08/27 Specimen Type: PLASMA Comment: CREATININE eGFR was calculated using the CKD-EPI 2020 equation. TRIGLYCERID E REF RANGE: NORMAL <150 mg/dL BORDERLINE HIGH: 150-199 TRIGLYCERID E mg/dL HIGH: 200-499 mg/dL VERY HIGH: >=500 mg/dL Ordering Provider: AMADOR ELIZABETH CCA A Report Released Date/Time: Aug 15, 2023 04:22 PM Reporting Lab: [place] [phone] Performing Lab: [place] [phone] [place] [address] COMPREHE NSIVE METABOLI C PANEL UREA NITROGEN [MASS/VOLU ME] IN SERUM OR PLASMA 22 mg/dL 9 - 08/27 Specimen Type: PLASMA Comment: CREATININE eGFR was calculated using the CKD-EPI 2020 equation. TRIGLYCERID E REF RANGE: NORMAL <150 mg/dL BORDERLINE HIGH: 150-199 TRIGLYCERID E mg/dL HIGH: 200-499 mg/dL VERY HIGH: >=500 mg/dL Ordering Provider: AMADOR ELIZABETH CCA A Report Released Date/Time: Aug 15, 2023 04:22 PM Reporting Lab: [place] [phone] Performing Lab: [place] [phone] [place] [address] COMPREHE NSIVE METABOLI C PANEL CALCIUM [MASS/VOLU ME] IN SERUM OR PLASMA 9.6 mg/dL 8.7 - 10.4 08/27 Specimen Type: PLASMA Comment: CREATININE eGFR was calculated using the CKD-EPI 2020 equation. TRIGLYCERID E REF RANGE: NORMAL <150 mg/dL BORDERLINE HIGH: 150-199 TRIGLYCERID E mg/dL HIGH: 200-499 mg/dL VERY HIGH: >=500 mg/dL Ordering Provider: AMADOR ELIZABETH CCA A Report Released Date/Time: Aug 15, 2023 04:22 PM Reporting Lab: [address] [phone] Performing Lab: [place] [phone] [place] [address] COMPREHE NSIVE METABOLI C PANEL CREATININE [MASS/VOLU ME] IN SERUM OR PLASMA 1.2 mg/dL 0.70 - 1.30 08/27 Specimen Type: PLASMA Comment: CREATININE eGFR was calculated using the CKD-EPI 2020 equation. TRIGLYCERID E REF RANGE: NORMAL <150 mg/dL BORDERLINE HIGH: 150-199 TRIGLYCERID E mg/dL HIGH: 200-499 mg/dL VERY HIGH: >=500 mg/dL Ordering Provider: AMADOR ELIZABETH CCA A Report Released Date/Time: Aug 15, 2023 04:22 PM Reporting Lab: [place] [phone] Performing Lab: [address] COMPREHE NSIVE METABOLI C PANEL CARBON DIOXIDE, TOTAL [MOLES/VOL UME] IN SERUM OR PLASMA 24 mmol/L 21 - 32 08/27 Specimen Type: PLASMA Comment: CREATININE eGFR was calculated using the CKD-EPI 2020 equation. TRIGLYCERID E REF RANGE: NORMAL <150 mg/dL BORDERLINE HIGH: 150-199 TRIGLYCERID E mg/dL HIGH: 200-499 mg/dL VERY HIGH: >=500 mg/dL Ordering Provider: AMADOR ELIZABETH CCA A Report Released Date/Time: Aug 15, 2023 04:22 PM Reporting Lab: [place] [phone] Performing Lab: [address] COMPREHE NSIVE METABOLI C PANEL GLUCOSE [MASS/VOLU ME] IN SERUM OR PLASMA 96 mg/dL 74 - 106 08/27 Specimen Type: PLASMA Comment: CREATININE eGFR was calculated using the CKD-EPI 2020 equation. TRIGLYCERID E REF RANGE: NORMAL <150 mg/dL BORDERLINE HIGH: 150-199 TRIGLYCERID E mg/dL HIGH: 200-499 mg/dL VERY HIGH: >=500 mg/dL Ordering Provider: AMADOR ELIZABETH CCA A Report Released Date/Time: Aug 15, 2023 04:22 PM Reporting Lab: [place] [phone] Performing Lab: [place] [phone] COMPREHE NSIVE METABOLI C PANEL PROTEIN [MASS/VOLU ME] IN SERUM OR PLASMA 6.8 g/dL 6.4 - 8.5 08/27 Specimen Type: PLASMA Comment: CREATININE eGFR was calculated using the CKD-EPI 2020 equation. TRIGLYCERID E REF RANGE: NORMAL <150 mg/dL BORDERLINE HIGH: 150-199 TRIGLYCERID E mg/dL HIGH: 200-499 mg/dL VERY HIGH: >=500 mg/dL Ordering Provider: AMADOR ELIZABETH CCA A Report Released Date/Time: Aug 15, 2023 04:22 PM Reporting Lab: [place] [phone] Performing Lab: [place] [phone] COMPREHE NSIVE METABOLI C PANEL SODIUM [MOLES/VOL UME] IN SERUM OR PLASMA 138 mmol/L 136 - 148 08/27 Specimen Type: PLASMA Comment: CREATININE eGFR was calculated using the CKD-EPI 2020 equation. TRIGLYCERID E REF RANGE: NORMAL <150 mg/dL BORDERLINE HIGH: 150-199 TRIGLYCERID E mg/dL HIGH: 200-499 mg/dL VERY HIGH: >=500 mg/dL Ordering Provider: AMADOR ELIZABETH CCA A Report Released Date/Time: Aug 15, 2023 04:22 PM Reporting Lab: [place] [phone] Performing Lab: [place] [phone] COMPREHE NSIVE METABOLI C PANEL CHLORIDE [MOLES/VOL UME] IN SERUM OR PLASMA 105 mmol/L 98 - 107 08/27 Specimen Type: PLASMA Comment: CREATININE eGFR was calculated using the CKD-EPI 2020 equation. TRIGLYCERID E REF RANGE: NORMAL <150 mg/dL BORDERLINE HIGH: 150-199 TRIGLYCERID E mg/dL HIGH: 200-499 mg/dL VERY HIGH: >=500 mg/dL Ordering Provider: AMADOR ELIZABETH CCA A Report Released Date/Time: Aug 15, 2023 04:22 PM Reporting Lab: [place] [phone] Performing Lab: [place] [phone] [place] [address] COMPREHE NSIVE METABOLI C PANEL BILIRUBIN. TOTAL [MASS/VOLU ME] IN SERUM OR PLASMA 0.6 mg/dL 0.3 - 1.2 08/27 Specimen Type: PLASMA Comment: CREATININE eGFR was calculated using the CKD-EPI 2020 equation. TRIGLYCERID E REF RANGE: NORMAL <150 mg/dL BORDERLINE HIGH: 150-199 TRIGLYCERID E mg/dL HIGH: 200-499 mg/dL VERY HIGH: >=500 mg/dL Ordering Provider: AMADOR ELIZABETH CCA A Report Released Date/Time: Aug 15, 2023 04:22 PM Reporting Lab: [place] [phone] Performing Lab: [place] [phone] [facility] COMPREHE NSIVE METABOLI C PANEL POTASSIUM [MOLES/VOL UME] IN SERUM OR PLASMA 4.5 mmol/L 3.5 - 5.1 08/27 Specimen Type: PLASMA Comment: CREATININE eGFR was calculated using the CKD-EPI 2020 equation. TRIGLYCERID E REF RANGE: NORMAL <150 mg/dL BORDERLINE HIGH: 150-199 TRIGLYCERID E mg/dL HIGH: 200-499 mg/dL VERY HIGH: >=500 mg/dL Ordering Provider: AMADOR ELIZABETH CCA A Report Released Date/Time: Aug 15, 2023 04:22 PM Reporting Lab: [place] [phone] Performing Lab: [address] COMPREHE NSIVE METABOLI C PANEL ANION GAP IN SERUM OR PLASMA 13.5 mmol/L 10 - 20 08/27 Specimen Type: PLASMA Comment: CREATININE eGFR was calculated using the CKD-EPI 2020 equation. TRIGLYCERID E REF RANGE: NORMAL <150 mg/dL BORDERLINE HIGH: 150-199 TRIGLYCERID E mg/dL HIGH: 200-499 mg/dL VERY HIGH: >=500 mg/dL Ordering Provider: AMADOR ELIZABETH CCA A Report Released Date/Time: Aug 15, 2023 04:22 PM Reporting Lab: [place] [phone] Performing Lab: [address] COMPREHE NSIVE METABOLI C PANEL GLOMERULAR FILTRATION RATE/1.73 SQ M.PREDICTE D [VOLUME RATE/AREA] IN SERUM, PLASMA OR BLOOD BY CREATININE -BASED FORMULA (CKD-EPI 2020) 63 mL/min 08/27 Specimen Type: PLASMA Comment: CREATININE eGFR was calculated using the CKD-EPI 2020 equation. TRIGLYCERID E REF RANGE: NORMAL <150 mg/dL BORDERLINE HIGH: 150-199 TRIGLYCERID E mg/dL HIGH: 200-499 mg/dL VERY HIGH: >=500 mg/dL Ordering Provider: AMADOR ELIZABETH CCA Report Released Date/Time: Aug 15, 2023 04:22 PM Reporting Lab: [address] [phone] Performing Lab: [place] [phone] [facility] HEMOGLOB IN A1C HEMOGLOBIN A1C/HEMOGL OBIN.TOTAL IN BLOOD 5.7 3.6 - 5.7 08/27 Specimen Type: BLOOD Comment: Values obtained from A1C measurement s can vary. For typical A1C assays, a reported value of 7.0 could actually be between 6.72 and 7.28 if measured by a reference method. A reported value of 9.0 could actually be between 8.73 and 9.27. Ref: http://www. ngsp.org/[place] Pdata.asp Ordering Provider: AMADOR ELIZABETH CCA A Report Released Date/Time: Aug 15, 2023 04:22 PM Reporting Lab: [place] [phone] Performing Lab: [place] [phone] [facility] TSH THYROTROPI N [UNITS/VOL UME] IN SERUM OR PLASMA BY DETECTION LIMIT <= 0.005 MIU/L 3.001 u[IU]/mL 0.55 - 4.78 08/27 Specimen Type: PLASMA No comment entered. Ordering Provider: AMADOR ELIZABETH CCA Report Released Date/Time: Aug 15, 2023 04:22 PM Reporting Lab: [address] [phone] Performing Lab: [place] [phone] [facility] Vital Signs Combined list of inpatient and outpatient Vital Signs from Department of Defense and Veterans Affairs, ranging from 12 months to all on record, depending upon the facility. Vital Sign Value Date Comments Source SYSTOLIC BLOOD PRESSURE 128 08/26/2024 09:12:36 [facility] DIASTOLIC BLOOD PRESSURE 86 08/26/2024 09:12:36 [facility] PULSE OXIMETRY 98 08/26/2024 09:12:36 [facility] WEIGHT 209 08/26/2024 09:12:36 [facility] BMI 28 kg/m2 08/26/2024 09:12:36 [facility] PAIN 6 08/26/2024 09:12:36 [facility] TEMPERATURE 97.5 08/26/2024 09:12:36 [facility] PULSE 69 08/26/2024 09:12:36 [facility] RESPIRATION 16 08/26/2024 09:12:36 [facility] Encounters Combined list of: 1) Encounters from Department of Veterans Affairs facilities going backup to the last 18 months, not all [place] inpatient encounters are included; 2) Encounters from the Department of [facility] facilities going backup to 280 months. Location Location Details Encounter Type Encounter Number Reason For Visit Attending Provider ADM Date DC Date Status Disposition Source [facility] Outpatient Encounter [id number] 09/04 [facility] [place] Outpatient Encounter [id number] 05/30 [facility] [place] Outpatient Encounter [id number] 08/26 [facility] OFF[facility]/P EST MOD 30 MIN [id number] Diagnos is: ICD-10- CM D64.9 Anemia, unspeci fied CLARAZAHIDA ECCA A 08/26 [facility] Outpatient Encounter [id number] 09/17 [facility] Outpatient Encounter [id number] [facility] Outpatient Encounter [id number] 09/25 [facility] OFF[facility] O/P NEW MOD 45 MIN [id number] Diagnos is: ICD-10- CM M25.571 Pain in right ankle and joints of right foot JONNATHAN ROLON 10/28 [facility] Social History Combined list of available smoking, tobacco, and other social history from Department of Defense and Veterans Affairs facilities. Social History Type Response Date Comment Sourc e Tobacco smoking status NHIS VA-TOBACCO USE FORMER CIGARETTES 08/26/2024 [facility] History of tobacco use VA-TOBACCO USE FO RMER OTHER TYPE 08/26/2024 [facility] History of tobacco use VA-TOBACCO FORMER USER 08/28/2023 [facility] History of tobacco use VA-TOBACCO FORMER USER 08/28/2022 [facility] History of tobacco use VA-TOBACCO QUIT 1 5 YRS OR MORE 03/13/2019 [facility] History of tobacco use VA-TOBACCO FORMER USER 07/09/2018 [facility] History of tobacco use QUIT TOBACCO >7 YEARS AGO 0 [facility] This section is an empty social history section. DoD Plan of Care List of future care activities from Department of Veterans Affairs facilities. Additional future care activities may be listed in the Assessment and Plan section. Date/Time Care Activity Care Activity Detail Facili ty 08/18/2025 AMBULATORY - NONE AMBULATORY - NONE [facility]
--- OUTSIDE RECORDS SUMMARY | 2025-03-15 08:54 | XMS_ITS | Clinical Summary ---
Author Organization [employer] s tem Address [facility] [place]-[id number] [address] [place] [address] Care Team Providers Care Heel Turner Name Role Phone Bird Klein MD Primary Care Provider [phone] Allergies No known active allergies Medications simvastatin (ZOCOR) 80 mg tablet simvastatin 80 mg tablet 1 Active celecoxib (CeleBREX) 200 mg capsule celecoxib 200 mg capsule 1 Active citalopram (CeleXA) 40 mg tablet citalopram 40 mg tablet 1 Active metoprolol tartrate (LOPRESSOR) 50 mg tablet 3 (three) times a day. Active omeprazole (PriLOSEC) 20 mg capsule omeprazole 20 mg capsule,delayed release 1 Active tamsulosin (FLOMAX) 0.4 mg capsule tamsulosin 0.4 mg capsule 1 Active rivaroxaban (XARELTO) 20 mg tablet tablet Xarelto 20 mg tablet 1 Active furosemide (LASIX) 20 mg tablet 20 mg every other day. Active furosemide (LASIX) 40 mg tablet Take 40 mg by mouth every other day. Active acetaminophen (TYLENOL EXTRA STRENGTH) 500 mg tablet Take 2 tablets (1,000 mg total) by mouth every 6 (six) hours as needed for pain. 30 tablet 4 Active Active Problems Problem Noted Date Diagnosed Date Aortic valve regurgitation 08/23/2021 Hyperlipidemia 08/23/2021 Non-healing surgical wound 08/23/2021 Coronary atherosclerosis 07/20/2013 Atrial fibrillation 07/09/2013 Bronchitis 07/09/2013 Congestive heart failure 07/09/2013 Malaise and fatigue 07/09/2013 Pneumonia 07/09/2013 Social History Tobacco Use Types Packs/Day Years Used Date Smoking Tobacco: Former Cigarettes Q uit: 1997 Smokeless Tobacco: Former Quit: 1997 Childcare Answer Date Recorded Childcare Unknown 01/07/2019 Employment Answer Date Recorded Employment Unknown 01/07/2019 Sex and Gender Information Value Date Recorded Sex Assigned at Not on file Legal Sex Male 11:49 AM EDT Gender Identity Not on file Sexual Orientation Not on file Last Filed Vital Signs Vital Sign Reading Time Taken Comments Blood Pressure 123/76 12/05/2023 4:02 PM EDT Pulse 67 12/05/2023 4:02 PM EDT Temperature 36.5 C (97.7 F) 12/05/2023 3:18 PM EDT Respiratory Rate 11 12/05/2023 4:02 PM EDT Oxygen Saturation 96% 12/05/2023 4:02 PM EDT Inhaled Oxygen Concentration - - Weight 97.3 kg (214 lb 6.4 oz) 12/05/2023 3:18 P M EDT Height 180.3 cm (5' 11 ) 12/05/2023 3:18 PM EDT Body Mass Index 29.9 12/05/2023 3:18 PM EDT Plan of Treatment Health Maintenance Due Date Last Done Comments Depression Screening 1962 Tobacco Screening 1962 Zoster (Shingles) Vaccine (1 of 2) 1999 DTaP,Tdap and Td Vaccines (1 - Tdap) 06/04/2002 06/03/2002 Abdominal Aortic Aneurysm (A AA) Screen 2014 Fall Risk Screening 2014 COVID-19 Vaccine (2023-2 5 season) 2024 04/22/2021, 09/29/2020, 09/08/2020 Influenza Vaccine 03/29/2025 05/05/2021, , 05/01/2018, Additional history exists Medical Devices Not on file Insurance MEDICARE [facility] MEDICARE [facility] AUTO INSURANCE MEDICARE FOR The Infatuation Care Teams Heel Turner Relationship Specialty Start Date End Date Bird Klein MD PCP - General Family Medicine 12/05/23
--- OUTSIDE RECORDS SUMMARY | 2025-03-15 08:54 | XMS_ITS | Encounter Summary ---
Author Organization [facility] tem Address [facility] [id number] [address] [place] [address] Care Team Providers Care Inside Channel Account Manager Name Role Phone Bird Klein MD Primary Care Provider [phone] Encounter Details Date Type Department Care Team (Late st Contact Info) Description 08/28/[address] [facility] [address] [place] [address] Radha Pittman, CINDY Social History Tobacco Use Types Packs/Day Years [...] on file Sexual Orientation Not on file COVID-19 Exposure Response Date Recorded In the last month, have you been in contact with someone who was confirmed or suspected to have Coronavirus / COVID-19? Unable to assess 08/30/2021 12:09 PM EST documented as of this encounter Plan of Treatment Not on file documented as of this encounter Visit Diagnoses Not on filedocumented in this encounter Care Teams Inside Channel Account Manager Relationship Specialty Start Date End Date Bird Klein MD PCP - General Family Medicine 12/05/23 documented as of this encounter
--- OUTSIDE RECORDS SUMMARY | 2025-03-15 08:54 | XMS_ITS | Encounter Summary ---
Author Organization [facility] tem Address [id number] [address] [place] [address] Care Team Providers Care Kiln Head House Operator Name Role Phone Bird Klein MD Primary Care Provider [phone] Encounter Details Date Type Department Care Team (Late st Contact Info) Description 08/24/2021 Telephone [facility] [address] [place] [address] Radha Pittman, CINDY Social History [...] have Coronavirus / COVID-19? Unable to assess 08/23/2021 2:50 PM EST documented as of this encounter Plan of Treatment Not on file documented as of this encounter Visit Diagnoses Not on filedocumented in this encounter Care Teams Kiln Head House Operator Relationship Specialty Start Date End Date Bird Kleni MD PCP - General Family Medicine 12/05/23 documented as of this encounter
--- OUTSIDE RECORDS SUMMARY | 2025-03-15 08:54 | XMS_ITS | Encounter Summary ---
Author Organization [facility] Address [address] [place] [address] Care Team Providers Care Nascar Pit Crew Person Name Role Phone Bird Klein MD Primary Care Provider [phone] Reason for Visit * Reason Comments Med Refill Encounter Details Date Type Department Care Team (Late st Contact Info) Description 05/23/[address] [address] Dwayne Ochoa MD [address] [facility] [place] [address] Benign hypertensive heart disease with heart failure (CMS/[facility]) Social History Tobacco Use Types Packs/Day Years Used Date Smoking Tobacco: Former Cigarettes Q uit: 07/29/1997 Smokeless Tobacco: Never Alcohol Use Standard Drinks/Week Comments Not Currently 0 (1 standard drink = 0.6 oz pur e alcohol) Sex and Gender Information Value Date Recorded Sex Assigned at Male 03/03/2025 8:46 AM EDT Legal Sex Male 10:59 PM EDT Gender Identity Male 03/03/2025 8:46 AM EDT Sexual Orientation Heterosexual or Straight 12/2024 8:46 AM EDT documented as of this encounter Plan of Treatment Upcoming Encounters Date Type Department Care Team (Late st Contact Info) Description 05/03/2025 10:30 AM EDT Office Visit [place] [address] [place] [address] Dwayne Ochoa MD [address] [facility] [place] [address] documented as of this encounter Visit Diagnoses Diagnosis Benign hypertensive heart disease with heart failure (CMS/HCC) documented in this encounter Care Teams Nascar Pit Crew Person Relationship Specialty Start Date End Date Bird Klein MD [address] [id number] PCP - General 03/19/22 documented as of this encounter
--- OUTSIDE RECORDS SUMMARY | 2025-03-15 08:54 | XMS_ITS | Clinical Summary ---
Author Organization [facility] Address [address] [place] [address] Care Team Providers Care Economics Consultant Name Role Phone Bird Klein MD Primary Care Provider [phone] Allergies No known active allergies Medications celecoxib (CeleBREX) 200 mg capsule Take 1 capsule every day by oral route for 90 days. Active citalopram (CeleXA) 40 mg tablet Take 1 tablet every day by oral route for 90 days. Active ferrous sulfate 325 (65 Fe) MG tablet Take 1 tablet by mouth in the morning. Active omeprazole (PriLOSEC) [address] capsule Take 1 capsule every day by oral route. Active rivaroxaban (Xarelto) 20 mg tablet Take 1 tablet every day by oral route for 90 days. Active simvastatin (Zocor) 80 mg tablet Take 1 tablet every day by oral route. Active tamsulosin (Flomax) 0.4 mg 24 hr capsule Take 1 capsule by mouth in the morning. Active furosemide (Lasix) 20 mg tabletIndications :Benign hypertensive heart disease with heart failure (CMS/HCC) TAKE 1 TABLET BY MOUTH EVERY DAY DIRECTED 90 tablet 3 4 Active metoprolol tartrate (Lopressor) 25 mg tabletIndications :Paroxysmal atrial fibrillation (CMS/HCC) TAKE 1 TABLET TWICE A DAY 180 tablet 3 5 Active Active Problems Problem Noted Date Diagnosed Date Benign prostatic hyperplasia 03/04/2024 Encounter for immunization 03/04/2024 Erectile dysfunction 03/04/2024 Gastroesophageal reflux disease 03/04/2024 Hearing loss 03/04/2024 History of arthroplasty of left knee 03/04/2024 Osteoarthritis 03/04/2024 S/P aortic valve replacement with bioprosthetic valve 03/04/2023 Assessment & Plan (03/04/2023 10:40 AM EDT): No concerning symptoms and pt doing quite well without any activity limiting symptoms Repeat echocardiogram Anxiety 03/04/2023 03/04/2023 Gastric ulcer 03/04/2023 03/04/2023 History of male genital system disorder 03/04/20 23 03/04/2023 Iron deficiency anemia 03/04/2023 Nonrheumatic aortic valve stenosis 03/04/2023 Overview (03/04/2023): S/P valve replacement Assessment & Plan (03/04/2023 10:42 AM EDT): Currently stable without any concerning symptoms Continue metoprolol and zocor Repeat echocardiogram. Aortic valve regurgitation 04/09/2022 Overview (03/04/2023): AO valve stenosis and regurg s/p bioprosthetic valve replacement 07/18- cryomaze and atriclip Assessment & Plan (03/04/2023 10:34 AM EDT): S/p bioprosthetic valve replacement 07/18 Continue metoprolol No concerning symptoms currently, continues with cardiac rehab- tolerating well Repeat echocardiogram Hyperlipidemia 04/09/2022 Assessment & Plan (03/04/2023 10:36 AM EDT): Continue zocor and script for annual labs provided including lipid level and LFT Non-healing surgical wound 08/23/202103/04 Coronary atherosclerosis 07/20/2013 Assessment & Plan (03/04/2023 10:35 AM EDT): Coronary artery disease is stable Continue GDMT- no ASA with xarelto -(pt also taking celebrex- HTN well controlled) Continue zocor continue risk factor modifications- heart healthy diet, regular exercise as tolerated and continue all medications. Paroxysmal atrial fibrillation 07/09/2013 Assessment & Plan (03/04/2023 10:36 AM EDT): S/P cryomaze and atriclip Remains on xarelto anticoagulation- denied any bleeding tendencies Continue metoprolol Bronchitis 07/09/2013 Chronic diastolic congestive heart failure 07/09 Assessment & Plan (03/04/2023 10:39 AM EDT): NYHC II- currently euvolemic without exacerbation Continue GDMT- [...] function and electrolytes- script for labs provided Malaise and fatigue 07/09/2013 Pneumonia 07/09/2013 Encounters Date Type Department Care Team Description 02/11/2025 [facility] [address] [place] [address] Dwayne Ochoa MD Paroxysmal atrial fibrillation (CMS/HCC) (Primary Dx) from Last 3 Months Social History Tobacco Use Types Packs/Day Years Used Date Smoking Tobacco: Former Cigarettes Q uit: 07/29/1997 Smokeless Tobacco: Never Tobacco Cessation:Counseling Given: Not Answered Alcohol Use Standard Drinks/Week Comments Not Currently 0 (1 standard drink = 0.6 oz pur e alcohol) [place] Safety & Environment Answer Date Rec orded Fear of Current or Ex-Partner Not on file Emotionally Abused Not on file 09/19/2023 Physically Abused Not on file 09/19/2023 Sexually Abused Not on file 09/19/2023 Physically or Sexually Abused Not on file Sex and Gender Information Value Date Recorded Sex Assigned at Male 03/03/2025 8:46 AM EDT Legal Sex Male 10:59 PM EDT Gender Identity Male 03/03/2025 8:46 AM EDT Sexual Orientation Heterosexual or Straight 12/2024 8:46 AM EDT Last Filed Vital Signs Vital Sign Reading Time Taken Comments Blood Pressure 105/71 03/04/2024 11:23 AM EDT Pulse 60 03/04/2024 11:23 AM EDT Temperature 36.6 C (97.9 F) 01/11/2022 1:55 PM EDT Respiratory Rate 16 01/11/2022 1:54 PM EDT Oxygen Saturation 96% 03/04/2024 11:23 AM EDT Inhaled Oxygen Concentration - - Weight 92.5 kg (204 lb) 03/04/2024 11:23 AM EDT Height 182.9 cm (6') 03/04/2024 11:23 AM EDT Body Mass Index 27.67 03/04/2024 11:23 AM EDT Plan of Treatment Upcoming Encounters Date Type Department Care Team (Late st Contact Info) Description 05/03/2025 10:30 AM EDT Office Visit [facility] [address] [place] [address] Dwayne Ochoa MD [address] [facility] [place] [address] Health Maintenance Due Date Last Done Comments CT Colonography 1949 FIT-DNA 1949 FIT 1949 FOBT 1950 Medicare Annual Wellness (AWV) 1950 Sigmoidoscopy 1950 Depression Screening 1961 Fall Risk Screening 2014 Colonoscopy 03/15/2024 03/15/2014, 03/10/2008 Colorectal Cancer Screening 03/15/2024 COVID-19 Vaccine ( season) 2024 05/30/2024, 09/04/2023, 11/29/2022, Additional history exists Influenza Vaccine (#1) 2025 , 04/27/2023, 07/29/2022, Additional history exists Adult Tetanus 11/29/2032 11/29/2022, 06/03/2002 Pneumococcal Vaccine: 50+ Years Completed 05/18/2016, 03/29/2015, 04/06/2010, Additional history exists Zoster Vaccines Completed 09/09/2018, 06/28, 07/04/2016 HIB Vaccines Aged Out No longer eligi ble based on patient's age to complete this topic HPV Vaccines Aged Out No longer eligi ble based on patient's age to complete this topic IPV Vaccines Aged Out No longer eligi ble based on patient's age to complete this topic Meningococcal B Vaccine Aged Out No l onger eligible based on patient's age to complete this topic Meningococcal Vaccine Aged Out No miguel hali eligible based on patient's age to complete this topic Rotavirus Vaccines Aged Out No longer eligible based on patient's age to complete this topic Insurance MEDICARE Member Subscriber Plan / Payer (Ef fective 2014-Present) Name:Nixon Devine Member ID:[id number] Relation to Subscriber:Self Name:Nixon Devine Subscriber ID:[id number] Payer ID:[id number] Group ID:Not on file Type:Medicare Address: [facility] [address] Care Teams Economics Consultant Relationship Specialty Start Date End Date Bird Klein MD [address] [facility] [address] [address] PCP - General 03/19/22
--- OUTSIDE RECORDS SUMMARY | 2025-03-15 08:54 | XMS_ITS | Encounter Summary ---
Author Organization [facility] Address [address] [place] [address] Care Team Providers Care Frozen Food Selector Name Role Phone Bird Klein MD Primary Care Provider [phone] Reason for Visit * Reason Comments Med Refill Encounter Details Date Type Department Care Team (Late st Contact Info) Description 02/19/2023 Refill [facility] [address] [place] [address] Dwayne Ochoa MD [address] [facility] [address] [facility] [place] [address] Heart failure, unspecified (CMS/HCC) Social History Tobacco Use Types Packs/Day Years [...] AM EDT documented as of this encounter Miscellaneous Notes * Telephone Encounter - Evy Cotton MA - 02/22/2023 9:57 AM EDT Patient needs an appointment for refills documented in this encounter Plan of Treatment Upcoming Encounters Date Type Department Care Team (Late st Contact Info) Description 05/03/2025 10:30 AM EDT Office Visit [facility] [address] [place] [address] Dwayne Ochoa MD [address] [facility] [address] [facility] [place] [address] documented as of this encounter Visit Diagnoses Diagnosis Heart failure, unspecified (CMS/[facility]) Heart failure, unspecified documented in this encounter Care Teams Frozen Food Selector Relationship Specialty Start Date End Date Bird Klein MD [address] [facility] [address] [place] [address] PCP - General 03/19/22 documented as of this encounter
--- OUTSIDE RECORDS SUMMARY | 2025-03-15 08:58 | XMS_ITS | CCD ---
Author Organization [facility] CliniSyaz Care Team Providers Care Office Services Clerk Name Role Phone DEB KLEIN Primary Care Unavailable HOYMARGARITADEB Referring Unavailable MASROOR, SINGH Admitting Unavailable MASROOR, [...] Unavailable MORAIMA, DR BOYD Primary Care Unavailable HOY, DR BOYD Admitting Unavailable HOY, DR BOYD Attending Unavailable HOY, DR BOYD Primary Care Unavailable MOUKARBEL, DR DAS Admitting Unavailable MOUKARBEL, DR DAS Attending Unavailable HOY, DR BOYD Primary Care Unavailable MOUKARBEL, DR DAS Consulting Unavailable JULIANUKAPIPPA QUICK Attending Unavailable Deb Klein Primary Care Physician Mane ZAMAN Attending Unavailable Deb Klein Referring Unavailable NILL, Mane R Attending Unavailable Deb Klein MD Primary Care Provider [phone] Evy Haq APRN Attending Provider [phone] Allergies Allergy Classification Reported Allergen(s) Allergy Type Date of Onset Reaction(s) Facility (1 source) No Known Medication Allergies; Translations: [No Known Medication Allergies] Propensity to adverse reactions (disorder) [facility] Repository Medications Current Medications Medication Drug Class(es) Dates Sig (Normalized) Sig (Original) acetaminophen 325 mg oral capsule (1 source) Start: 03-07-2025 take 2 capsules by mouth every six hours as needed Acetaminophen 325 mg capsule Active 650 MG PO Every 6 hours as needed March 07, 2025 12:00am Complies with drug therapy amoxicillin 500 mg oral tablet (1 source) Penicillin-class Antibacterial Start: 03-07-2025 take 1 tablet by mouth three times daily Amoxicillin 500 mg tablet Active 500 MG PO Three times daily 21 7 March 07, 2025 12:00am Complies with drug therapy celecoxib 200 mg oral capsule (2 sources) Nonsteroidal Anti-inflammatory Drug Start: 03-07-2025 take 1 capsule by mouth twice daily Celecoxib 200 mg capsule Active 200 MG PO Twice daily March 07, 2025 12:00am Complies with drug therapy Start: 04-22-2024 take 1 capsule by [facility] once daily CeleBREX 100 mg Cap 100 mg = 1 cap(s), Oral, Daily, Refills(s) 0 Start Date: 04/22/24 Status: Ordered Centrum Silver oral tablet (1 source) Start: 03-22-2021 take 1 tablet by mouth once daily Centrum Silver oral tablet Oral, Daily, Refill(s) 0 Start Date: 03/22/21 Status: Ordered cetirizine hydrochloride 10 mg oral tablet (1 source) Histamine-1 Receptor Antagonist Start: 03-07-2025 take 1 tablet by mouth once daily as needed Cetirizine 10 mg tablet Active 10 MG PO Daily as needed March 07, 2025 12:00am Complies with drug therapy citalopram 20 mg oral tablet (2 sources) Serotonin Reuptake Inhibitor Start: 03-07-2025 take 1 tablet by mouth once Citalopram 20 mg tablet Active 20 MG PO Once March 07, 2025 12:00am Complies with drug therapy Start: 03-22-2021 take 1 mg by mouth once daily citalopram 40 mg Tab mg tab(s), Oral, Daily, Refills(s) 0 Start Date: 03/22/21 Status: Ordered ferrous sulfate 325 mg oral tablet (2 sources) Start: 03-07-2025 take 1 tablet by mouth once daily Ferrous Sulfate 325 mg (65 mg iron) tablet Active 325 MG PO Daily March 07, 2025 12:00am Complies with drug therapy Start: 03-22-2021 take 1 tablet by [facility] once daily ferrous sulfate 325 mg Tab 325 mg = 1 tab(s), Oral, Daily, Refills(s) 0 Start Date: 03/22/21 Status: Ordered furosemide 20 mg oral tablet (2 sources) Loop Diuretic Start: 03-07-2025 take 1 tablet by mouth once daily Furosemide 20 mg tablet Active 20 MG PO Daily March 07, 2025 12:00am Complies with drug therapy Start: 04-22-2024 take 1 tablet by [facility] once daily Lasix 20 mg Tab 20 mg = 1 tab(s), Oral, Daily, Refills(s) 0 Start Date: 04/22/24 Status: Ordered lidocaine hydrochloride 20 mg/ml mucous membrane topical solution (1 source) Antiarrhythmic, Amide Local Anesthetic Start: 03-07-2025 Lidocaine Hcl (Lidocaine Viscous) 2 % solution Active 5 ML MUCOUS MEM every 6 to 8 hours as needed for pain 100 5 March 07, 2025 12:00am Swish around the mouth before spitting out Complies with drug therapy metoprolol tartrate 50 mg oral tablet (2 sources) beta-Adrenergic Roly Start: 03-07-2025 take 1 tablet by mouth twice daily Metoprolol Tartrate 50 mg tablet Active 50 MG PO Twice daily March 07, 2025 12:00am Complies with drug therapy Start: 04-22-2024 take 1 tablet by [facility] twice daily Metoprolol tartrate 25 mg Tab 25 mg = 1 tab(s), Oral, BID, Refills(s) 0 Start Date: 04/22/24 Status: Ordered Multivitamin (Daily Multi-Vitamin) tablet (1 source) Start: 03-07-2025 take 1 tablet by mouth once daily Multivitamin (Daily Multi-Vitamin) tablet Active 1 TAB PO Daily March 07, 2025 12:00am Complies with drug therapy omeprazole 20 mg delayed release oral capsule (1 source) Proton Pump Inhibitor Start: 03-22-2021 take 1 capsule by mouth once daily omeprazole 20 mg Cap-DR 20 mg = 1 cap(s), Oral, Daily, # 30 cap(s), Refills(s) 0 Start Date: 03/22/21 Status: Ordered psyllium 3400 mg powder for oral suspension (1 source) Start: 03-07-2025 Psyllium Husk (Daily Fiber (Psyllium-Aspart)) 3.4 gram powder in packet Active 1 PACKET PO Daily March 07, 2025 12:00am Complies with drug therapy rivaroxaban 20 mg oral tablet (2 sources) Factor Xa Inhibitor Start: 03-07-2025 take 1 tablet by mouth once daily in the evening Rivaroxaban (Xarelto) 20 mg tablet Active 20 MG PO Every evening March 07, 2025 12:00am Complies with drug therapy Start: 03-22-2021 take 1 tablet by sabine [facility] once daily in the evening Xarelto 20 [...] Ordered tamsulosin hydrochloride 0.4 mg oral capsule (2 sources) alpha-Adrenergic Roly Start: 03-07-2025 take 1 capsule by mouth once daily at bedtime Tamsulosin 0.4 mg capsule Active 0.4 MG PO Daily at bedtime March 07, 2025 12:00am Complies with drug therapy Start: 03-22-2021 take 1 mg by mouth [...] Source Comme nt: Last Assessment & Plan: [facility] II- currently euvolemic without exacerbation Continue [...] disease (4 sources) Atherosclerotic heart disease of [place] coronary artery without angina pectoris; Translations: [Coronary [...] Test Name Value Interpretation Reference Range Facility Reminderson 05-28-2024 Reminders Reminders From: Devi Wesley LPN To: [facility] - Clinical; Sent: 05/28/2024 13:24:35 EDT Show up: 04/27/2034 07:00:00 EDT Subject: colonoscopy recall Due Date/Time: 05/27/2034 07:00:00 EDT Reminder/Recall Patient due for screening colonoscopy 05/27/2034. Ada Can [facility] Ambulatory Visit Summaryon 1 Ambulatory Visit Summary Ambulatory Visit Summary ISRAEL DEVINE :1950 Visit Date:04/28/2024 Ambulatory Visit Instructions Your Care Team Attending Physician - AUSTYN GUILLAUME, Mane Tsang Primary Care Physician - Moraima GUILLAUME, Deb Referring Physician - Moraima GUILLAUME, Deb This Is Your Medications List celecoxib (CeleBREX [...] for choosing us for your care. Normal [facility] Office Visiton 03-04-2024 Follow-up visit [id number] Beau Devine 1950 M Date Provider Department Center 03/04/2024 [place] [facility] Family History Family history unknown: Yes Level of Service:05490 HI OFFICE/OUTPATIENT ESTABLISHED MOD MDM 30 MIN Normal [facility] PSA, FREE AND TOTAL RATIOon 06-23-2022 % [...] men. Performed By: #### P SAFREE #### [facility] [address] [place] [address] Dr. Matt Suero Prostate specific Ag [Mass/Vol] 1.7 ng/mL Normal 0.0-4.0 [facility] Comment on above: Result Comment: Keiko TURNER methodology. . According to the [employer], Serum PSA should decrease and [...] disease. Performed By: #### P SAFREE #### [facility] [address] [address] [address] Matt Suero PSA, Free 0.25 ng/mL Normal N/A [facility] Comment on above: Result Comment: Keiko TURNER methodology. Performed By: #### P SAFREE #### [facility] [address] [place] [address] Dr. Matt Suero TESTOSTERONE, TOTALon 2021 Testosterone [Mass/Vol] 302 ng/dL Normal 264-916 [facility] Comment on above: Result Comment: Adul t male reference interval is based on a population of healthy nonobese males (BMI <30) between 19 and 39 years old. Wilfredo, et.al. JCEM 2017,102;6776-8785. PMID: [id number]. Performed By: #### O BSCRN #### [facility] [address] [place] [address] Dr. Matt Suero PSA, FREE AND TOTAL [...] 10% 20% >25.00% 5% 9% Please note: Catalona et al did not make specific recommendations regarding the use of percent free PSA for any other population of men. Performed By: #### O BSCRN #### [facility] [address] [address] [address] Matt Suero Prostate specific Ag [Mass/Vol] 2.2 ng/mL Normal 0.0-4.0 [facility] Comment on above: Result Comment: Keiko menendez ECLIA methodology. . According to the [employer], Serum PSA should decrease and [...] disease. Performed By: #### O BSCRN #### [facility] [address] [address] [address] Matt Suero PSA, Free 0.29 ng/mL Normal N/A [facility] Comment on above: Result Comment: Keiko MCCORMICKIA methodology. Performed By: #### O BSCRN #### [facility] [address] [place] [address] Dr. Matt Suero ECHOCARDIO M/2D COMPLETEon 0 01-03-2022 ECHOCARDIO M/2D COMPLETE Patient: ISRAEL DEVINE Exam Date: 01/03/2022 : 1950 Gender:M Ordering : MALGORZATA DANIELLE Admission #: [id number] Family : DR DEB KLEIN . Order #: [id number] CLICK HERE TO VIEW EXAM ECHOCARDIOGRAM REPORT [...] Sr M.D. on 01/03/2022 at 13:41 Normal [facility] PSA, FREE AND TOTAL RATIOon 12-21-2021 % Free PSA 25.3 % Normal [facility] Comment on above: Result Comment: The [...] men. Performed By: #### O BSCRN #### [facility] [address] [place] [address] Dr. Matt Suero Prostate specific Ag [Mass/Vol] 10.4 ng/mL Critically high 0.0-4.0 [facility] Comment on above: Result Comment: Roch aleja ECLIA methodology. . According to the [employer], Serum PSA should decrease and [...] disease. Performed By: #### O BSCRN #### [facility] [address] [place] [address] Dr. Matt Suero PSA, Free 2.63 ng/mL Normal N/A [facility] Comment on above: Result Comment: Roch aleja ECLIA methodology. Performed By: #### O BSCRN #### [facility] [address] [place] [address] Dr. Matt Suero INSULINon 12-20-2021 Insulin 13.6 uIU/mL Normal 2.6-24.9 [facility] Comment on above: Performed By: #### I NSULIN #### [facility] [address] [place] [address] Dr. Matt Suero TESTOSTERONE, TOTALon 2021 Testosterone [Mass/Vol] 250 ng/dL Critically low 264-916 [facility] Comment on above: Result Comment: Adul t male reference interval is based on a population of healthy nonobese males (BMI <30) between 19 and 39 years old. Wilfredo et.al. JCEM 2017,102;7356-4982. PMID: [id number]. Performed By: #### O BSCRN #### [facility] [address] [place] [address] Dr. Matt Suero BNPon 12-19-2021 Natriuretic peptide B (Bld) [Mass/Vol] 795.0 pg/mL Normal <=900.0 [facility] Comment on above: Performed By: #### B HOSPITAL CARRIER, URIC, CMP, LIPID #### [facility] [address] [place] [address] Dr. Matt Suero CBC AUTO DIFFon 12-19-2021 BASO # 0.1 103/ul Normal 0.0-0.1 [facility] Comment on above: Performed By: #### C BC #### [facility] [address] [place] [address] Dr. Matt Suero Basophils/100 WBC (Bld) 0.6 % Normal 0.2-2.0 [facility] Comment on above: Performed By: #### C BC #### [facility] [address] [place] [address] Dr. Matt Suero EO # 0.3 103/ul Normal 0.0-0.7 [facility] Comment on above: Performed By: #### C BC #### [facility] [address] [place] [address] Dr. Matt Suero Eosinophils/100 WBC (Bld) 2.6 % Normal 0.9-7.0 [facility] Comment on above: Performed By: #### C BC #### [facility] [address] [place] [address] Dr. Matt Suero Erythrocyte distribution width (RBC) [Ratio] 14.4 % Normal 11.0-15.0 [facility] Comment on above: Performed By: #### C BC #### [facility] [address] [place] [address] Dr. Matt Suero Hematocrit (Bld) [Volume fraction] 36.5 % Critically low 42.0-54.0 [facility] Comment on above: Performed By: #### C BC #### [facility] [address] [place] [address] Dr. Matt Suero Hemoglobin (Bld) [Mass/Vol] 11.6 g/dL Critically low 14.0-18.0 [facility] Comment on above: Performed By: #### C BC #### [facility] [address] [place] [address] Dr. Matt Suero IG # 0.03 10e3/ul Normal 0.00-0.03 [facility] Comment on above: Performed By: #### C BC #### [facility] [address] [place] [address] Dr. Matt Suero IG % 0.3 % Normal 0.0-0.5 [facility] Comment on above: Performed By: #### C BC #### [facility] [address] [place] [address] Dr. Matt Suero LYMPH # 0.9 103/ul Critically low 1.2-3.[address] [facility] Comment on above: Performed By: #### C BC #### [facility] [address] [place] [address] Dr. Matt Suero Lymphocytes/100 WBC (Bld) 8.8 % Critically low 20.5-60.0 [facility] Comment on above: Performed By: #### C BC #### [facility] [address] [place] [address] Dr. Matt Suero MANUAL DIFF REQ NO Normal [facility] Comment on above: Performed By: #### C BC #### [facility] [address] [address] [address] Matt Suero MCH (RBC) [Entitic mass] 28.8 pg Normal 25.9-34.0 [facility] Comment on above: Performed By: #### C BC #### [facility] [address] [address] [address] Matt Suero MCHC (RBC) [Mass/Vol] 31.8 g/dL Normal 29.9-35.2 [facility] Comment on above: Performed By: #### C BC #### [facility] [address] [address] [address] Matt Suero MCV (RBC) [Entitic vol] 90.6 fL Normal 80.0-94.0 [facility] Comment on above: Performed By: #### C BC #### [facility] [address] [place] [address] Dr. Matt Suero MONO # 1.0 103/ul Critically high 0.3-0.8 [facility] Comment on above: Performed By: #### C BC #### [facility] [address] [place] [address] Dr. Matt Suero Monocytes/100 WBC (Bld) 9.2 % Normal 1.7-12.0 [facility] Comment on above: Performed By: #### C BC #### [facility] [address] [place] [address] Dr. Matt Suero NEUT # 8.3 103/ul Critically high 1.4-6.5 [facility] Comment on above: Performed By: #### C BC #### [facility] [address] [place] [address] Dr. Matt Suero Neutrophils/100 WBC (Bld) 78.5 % Critically high 43.0-75.0 [facility] Comment on above: Performed By: #### C BC #### [facility] [address] [place] [address] Dr. Matt Suero Platelet mean volume (Bld) [Entitic vol] 8.8 fL Critically low 9.5-13.5 [facility] Comment on above: Performed By: #### C BC #### [facility] [address] [address] [address] Matt Suero PLT 277 103/ul Normal 150-450 [facility] Comment on above: Performed By: #### C BC #### [facility] [address] [address] [address] Matt Suero RBC 4.03 106/ul Critically low 4.70-6.10 [facility] Comment on above: Performed By: #### C BC #### [facility] [address] [address] [address] Matt Suero WBC 10.6 103/ul Normal 4.0-11.0 [facility] Comment on above: Performed By: #### C BC #### [facility] [address] [place] [address] Dr. Matt Suero GLYCOHEMOGLOBIN A1Con 2021 ADA RECOMMENDATION SEE BELOW Normal [facility] Comment on above: Result Comment: ADA RECOMMENDED LIMIT 4.0 - 6.0 ADA THERAPEUTIC TARGET < 7.0 ACTION SUGGESTED > 7.0 Performed By: #### O BSCRN #### [facility] [address] [place] [address] Dr. Matt Suero Glucose [Mass/Vol] 126 mg/dL Normal [facility] Comment on above: Performed By: #### O BSCRN #### [facility] [address] [place] [address] Dr. Matt Suero HbA1c (Bld) [Mass fraction] 6.0 % Normal 4.5-6.2 [facility] Comment on above: Performed By: #### O BSCRN #### [facility] [address] [address] [address] Matt Suero LIPID PROFILEon 12-19-2021 CHOL-HDL RATIO NORM SEE BELOW Normal [facility] Comment on above: Result Comment: 3.3 - 4.4 LOW RISK 4.4 - 7.1 AVERAGE RISK 7.1 - 11.0 MODERATE RISK >11.0 HIGH RISK Performed By: #### B HOSPITAL CARRIER, URIC, CMP, LIPID #### [facility] [address] [address] [address] Matt Suero Cholesterol [Mass/Vol] 153 mg/dL Normal <=200 [facility] Comment on above: Performed By: #### B HOSPITAL CARRIER, URIC, CMP, LIPID #### [facility] [address] [address] [address] Matt Suero Cholesterol in HDL [Mass/Vol] 69 mg/dL Critically high 40-60 [facility] Comment on above: Performed By: #### B HOSPITAL CARRIER, URIC, CMP, LIPID #### [facility] [address] [address] [address] Matt Suero Cholesterol in LDL [Mass/Vol] 69.0 mg/dL Normal [facility] Comment on above: Performed By: #### B HOSPITAL CARRIER, URIC, CMP, LIPID #### [facility] [address] [address] [address] Matt Suero Cholesterol.total/ Cholesterol in HDL [Mass ratio] 2.2 {ratio} Normal [facility] Comment on above: Performed By: #### B HOSPITAL CARRIER, URIC, CMP, LIPID #### [facility] [address] [address] [address] Matt Suero HDL NORMAL > or = 60 mg/dl - LO W CARDIOVASCULAR RISK <40 mg/dl - HIGH CARDIOVASCULAR RISK Normal [facility] Comment on above: Performed By: #### B HOSPITAL CARRIER, URIC, CMP, LIPID #### [facility] [address] [address] [address] Matt Suero LDL CALC NORMAL SEE BELOW Normal [facility] Comment on above: Result Comment: <100 mg/dl OPTIMAL 100 - 129 mg/dl NEAR OR ABOVE OPTIMAL 130 - 159 mg/dl BORDERLINE HIGH 160 - 189 mg/dl HIGH >190 mg/dl VERY HIGH Performed By: #### B HOSPITAL CARRIER, URIC, CMP, LIPID #### [facility] [address] [address] [address] Matt Suero Triglyceride [Mass/Vol] 72 mg/dL Normal <=150 [facility] Comment on above: Performed By: #### B HOSPITAL CARRIER, URIC, CMP, LIPID #### [facility] [address] [address] [address] Matt Suero VLDL CALC 14.4 mg/dL Normal [facility] Comment on above: Performed By: #### B HOSPITAL CARRIER, URIC, CMP, LIPID #### [facility] [address] [address] [address] Matt Suero OCC BLD IMMUNO SCREENon 11-27 OCCULT BLOOD Negative Normal NEGATIVE [facility] Comment on above: Performed By: #### O BSCRN #### [facility] [address] [address] [address] Matt Suero PROF 14(COMP METB)on 022 Albumin [Mass/Vol] 3.3 g/dL Critically low 3.4-5.0 [facility] Comment on above: Performed By: #### B HOSPITAL CARRIER, URIC, CMP, LIPID #### [facility] [address] [place] [address] Dr. Matt Suero Albumin/Globulin [Mass ratio] 0.8 {ratio} Normal [facility] Comment on above: Performed By: #### B HOSPITAL CARRIER, URIC, CMP, LIPID #### [facility] [address] [address] [address] Matt Suero ALP [Catalytic activity/Vol] 76 U/L Normal 46-116 [facility] Comment on above: Performed By: #### B HOSPITAL CARRIER, URIC, CMP, LIPID #### [facility] [address] [address] [address] Matt Suero ALT [Catalytic activity/Vol] 24 U/L Normal 16-63 [facility] Comment on above: Performed By: #### B HOSPITAL CARRIER, URIC, CMP, LIPID #### [facility] [address] [address] [address] Matt Suero Anion gap [Moles/Vol] 13.8 mmol/L Normal [facility] Comment on above: Performed By: #### B HOSPITAL CARRIER, URIC, CMP, LIPID #### [facility] [address] [address] [address] Matt Suero AST [Catalytic activity/Vol] 19 U/L Normal 15-37 [facility] Comment on above: Performed By: #### B HOSPITAL CARRIER, URIC, CMP, LIPID #### [facility] [address] [place] [address] Dr. Matt Suero Bilirubin [Mass/Vol] 0.5 mg/dL Normal 0.2-1.0 [facility] Comment on above: Performed By: #### B HOSPITAL CARRIER, URIC, CMP, LIPID #### [facility] [address] [place] [address] Dr. Matt Suero Calcium [Mass/Vol] 9.0 mg/dL Normal 8.5-10.1 [facility] Comment on above: Performed By: #### B HOSPITAL CARRIER, URIC, CMP, LIPID #### [facility] [address] [place] [address] Dr. Matt Suero Chloride [Moles/Vol] 102 mmol/L Normal 98-107 [facility] Comment on above: Performed By: #### B HOSPITAL CARRIER, URIC, CMP, LIPID #### [facility] [address] [place] [address] Dr. Matt Suero CO2 [Moles/Vol] 28.3 mmol/L Normal 21.0-32.0 [facility] Comment on above: Performed By: #### B HOSPITAL CARRIER, URIC, CMP, LIPID #### [facility] [address] [place] [address] Dr. Matt Suero Creatinine [Mass/Vol] 1.01 mg/dL Normal 0.70-1.30 [facility] Comment on above: Performed By: #### B HOSPITAL CARRIER, URIC, CMP, LIPID #### [facility] [address] [place] [address] Dr. Matt Suero EGFR-AF KENYAN >60 Normal >=60 [facility] Comment on above: Performed By: #### B HOSPITAL CARRIER, URIC, CMP, LIPID #### [facility] [address] [place] [address] Dr. Matt Suero EGFR-NON AF KENYAN >60 Normal >=60 [facility] Comment on above: Performed By: #### B HOSPITAL CARRIER, URIC, CMP, LIPID #### [facility] [address] [place] [address] Dr. Matt Suero Globulin (S) [Mass/Vol] 4.2 g/dL Normal [facility] Comment on above: Performed By: #### B HOSPITAL CARRIER, URIC, CMP, LIPID #### [facility] [address] [address] [address] Matt Suero Glucose [Mass/Vol] 115 mg/dL Critically high 74-106 [facility] Comment on above: Performed By: #### B HOSPITAL CARRIER, URIC, CMP, LIPID #### [facility] [address] [address] [address] Matt Suero Potassium [Moles/Vol] 4.6 mmol/L Normal 3.5-5.1 [facility] Comment on above: Performed By: #### B HOSPITAL CARRIER, URIC, CMP, LIPID #### [facility] [address] [place] [address] Dr. Matt Suero Protein [Mass/Vol] 7.5 g/dL Normal 6.4-8.2 [facility] Comment on above: Performed By: #### B HOSPITAL CARRIER, URIC, CMP, LIPID #### [facility] [address] [place] [address] Dr. Matt Suero Sodium [Moles/Vol] 140 mmol/L Normal 136-145 [facility] Comment on above: Performed By: #### B HOSPITAL CARRIER, URIC, CMP, LIPID #### [facility] [address] [address] [address] Matt Suero Urea nitrogen [Mass/Vol] 21.0 mg/dL Critically high 7.0-18.0 [facility] Comment on above: Performed By: #### B HOSPITAL CARRIER, URIC, CMP, LIPID #### [facility] [address] [place] [address] Dr. Matt Suero Urea nitrogen/Creatinin e [Mass ratio] 20.7 mg/mg Normal [facility] Comment on above: Performed By: #### B HOSPITAL CARRIER, URIC, CMP, LIPID #### [facility] [address] [address] [address] Matt Suero URIC ACID SERUMon 12-19-2021 Urate [Mass/Vol] 5.2 mg/dL Normal 3.5-7.2 The [facility] Comment on above: Performed By: #### B HOSPITAL CARRIER, URIC, CMP, LIPID #### [facility] [address] [address] [address] Matt Suero ECHOCARDIO M/2D COMPLETEon 0 09-08-2021 ECHOCARDIO M/2D COMPLETE Patient: ISRAEL DEVINE Exam Date: 09/08/2021 : 1950 Gender:M Ordering : DR PIPPA BENITEZ M.D. Admission #: [id number] Family : DR DEB KLEIN . Order #: [id number] CLICK HERE TO VIEW EXAM ECHOCARDIOGRAM REPORT [...] Area(A4C): 26.40 cm2 Left Atrium Systolic Volume(A2C): 591622 mm3 Left Atrium Systolic Volume(A4C): 68705 mm3 Mitral Valve MV E to A [...] Benitez M.D. on 09/08/2021 at 15:59 Normal [facility] BASIC METABOLIC PANELon 12-2 Calcium [Mass/Vol] 8.9 mg/dL Normal 8.6-10.3 [facility] Comment on above: Order Comment: Pneum othorax Performed By: #### 0 0071, 58529, 15821 ####[facility] [place] [address], [facility] Chloride [Moles/Vol] 93 mmol/L Low 98-107 [facility] Comment on above: Order Comment: Pneum othorax Performed By: #### 0 0071, 81807, 72260 ####[facility] [place] [address], [facility] CO2 [Moles/Vol] 30 mmol/L Normal 21-31 [facility] Comment on above: Order Comment: Pneum othorax Performed By: #### 0 0071, 35779, 15746 ####[facility] [place] [address], [place] Creatinine [Mass/Vol] 1.00 mg/dL Normal 0.70-1.30 [facility] Comment on above: Order Comment: Pneum othorax Performed By: #### 0 0071, 13037, 15599 ####[facility] [place] [address], [facility] GFR/1.73 sq M.predicted among blacks MDRD (S/P/Bld) [Vol rate/Area] mL/min/{1.73_m2} Normal >60 [facility] Comment on above: Order Comment: Pneum othorax Result Comment: Calc ulation may not be valid for patients over 70 years Performed By: #### 0 0071, 97470, 12668 ####[facility] [place] [address], [facility] GFR/1.73 sq M.predicted among non-blacks MDRD (S/P/Bld) [Vol rate/Area] mL/min/{1.73_m2} Normal >60 [facility] Comment on above: Order Comment: Pneum othorax Result Comment: Calc ulation may not be valid for patients over 70 years Performed By: #### 0 0071, 30505, 11220 ####[facility] [place] [address], [place] Glucose [Mass/Vol] 112 mg/dL High 70-100 [facility] Comment on above: Order Comment: Pneum othorax Performed By: #### 0 0071, 74638, 55541 ####[facility] [place] [address], [place] Potassium [Moles/Vol] 3.9 mmol/L Normal 3.5-5.1 [facility] Comment on above: Order Comment: Pneum othorax Performed By: #### 0 0071, 35743, 22341 ####[facility] [place] [address], [facility] Sodium [Moles/Vol] 134 mmol/L Low 136-145 [facility] Comment on above: Order Comment: Pneum othorax Performed By: #### 0 0071, 67058, 24815 ####[facility] [place] [address], [facility] Urea nitrogen [Mass/Vol] 20 mg/dL Normal 7-25 [facility] Comment on above: Order Comment: Pneum othorax Performed By: #### 0 0071, 92162, 27536 ####[facility], [place] [address] [place] [address] CBC COMPLETE BLOOD COUNTon 09-17-2020 Erythrocyte distribution width (RBC) [Ratio] 12.7 % Normal 11.5-15.0 [facility] Comment on above: Order Comment: No: D o not add to previous draw Performed By: #### 5 0608 #### [facility] [address] [place] [address], [place] Hematocrit (Bld) [Volume fraction] 31.6 % Low 39.0-50.0 [facility] Comment on above: Order Comment: No: D o not add to previous draw Performed By: #### 5 0608 #### [facility] [address] [place] [address], [place] Hemoglobin (Bld) [Mass/Vol] 10.3 g/dL Low 13.0-17.0 [facility] Comment on above: Order Comment: No: D o not add to previous draw Performed By: #### 5 0608 #### [facility] [address] [place] [address], [place] MCH (RBC) [Entitic mass] 30.5 pg Normal 27.0-33.0 [facility] Comment on above: Order Comment: No: D o not add to previous draw Performed By: #### 5 0608 #### [facility] [address] [place] [id number], [facility] MCHC (RBC) [Mass/Vol] 32.6 g/dL Normal 32.0-35.0 [facility] Comment on above: Order Comment: No: D o not add to previous draw Performed By: #### 5 0608 #### [facility] [address] [place] [id number], [facility] MCV (RBC) [Entitic vol] 93.5 fL Normal 82.0-98.0 [facility] Comment on above: Order Comment: No: D o not add to previous draw Performed By: #### 5 0608 #### [facility] [address] [facility] [place] [id number], [facility] Nucleated RBC/100 WBC (Bld) [Ratio] 0 % Normal 0-0 [facility] Comment on above: Order Comment: No: D o not add to previous draw Performed By: #### 5 0608 #### [facility] [address] [place] [id number], [facility] PLAT CNT 200 10*3/uL Normal 150-400 [facility] Comment on above: Order Comment: No: D o not add to previous draw Performed By: #### 5 0608 #### [facility] [address] [place] [address], [facility] RBC (Bld) [#/Vol] 3.38 10*6/uL Low 4.20-5.70 [facility] Comment on above: Order Comment: No: D o not add to previous draw Performed By: #### 5 0608 #### [facility] [address] [place] [address], [facility] WBC (Bld) [#/Vol] 9.06 10*3/uL Normal 4.00-10.60 [facility] Comment on above: Order Comment: No: D o not add to previous draw Performed By: #### 5 0608 #### [facility] [address] [place] [address], [facility] MAGNESIUM BLOODon 07-17-2021 Magnesium [Mass/Vol] 1.8 mg/dL Low 1.9-2.7 [facility] Comment on above: Order Comment: Pneum othorax Performed By: #### 0 0071, 61568, 71463 ####[facility] [facility] [place] [address], [facility] PHOSPHORUS BLOODon Phosphate [Mass/Vol] 4.3 mg/dL Normal 2.5-5.0 [facility] Comment on above: Order Comment: Pneum othorax Performed By: #### 0 0071, 99146, 77383 ####[facility] [facility] [place] [address], [facility] POC GLUCOSE LABon 07-17-2021 Glucose [Mass/Vol] 151 mg/dL High 70-100 [facility] Comment on above: Performed By: #### 8 5499 #### [facility] [address] [facility] [place] [place] [address], [facility] Glucose [Mass/Vol] 111 mg/dL High 70-100 [facility] Comment on above: Performed By: #### 8 5499 #### [facility] [address] [facility] [place] [place] [address], [facility] PORTABLE CHEST 1 VIEWon 06-29 PORTABLE CHEST 1 VIEW [facility] Department of Radiology [address] [place] [id number] Patient Name: ISRAEL DEVINE : 1950 Sex: M Age: Race: White Pt. Location: [address] [address] Patient Status: I Ordered Date: 07/17/2021 5:00:00 [...] change Electronically signed: Kumar Ross. Transcribed by: [email or web address], User Resident: Electronically Signed by: KUMAR ROSS @ 07/17/2021 07:45 AM Normal [facility] Comment on above: Order Comment: The A ptima SARS-CoV-2 assay is a nucleic acid amplification test intended for the qualitative detection of RNA from SARS-CoV-2 isolated and purified from nasopharyngeal (HOSPITAL CARRIER),oropharyngeal (OP), nasal swab, sputum, and bronchoalveolar lavage (BAL) specimens from patients with signs and symptoms of infection who are suspected of COVID-19. Results are for the identification of SARS-CoV-2 RNA. The SARS-CoV-2 RNA is generally detectable during the acute phase of infection. The Aptima SARS-CoV-2 Assay on the [place] and [place] Fusion system is intended for use by laboratory personnel specifically instructed and trained in the operation of the [place] and [place] Fusion system. The Aptima SARS-CoV-2 assay is [...] Calcium [Mass/Vol] 8.6 mg/dL Normal 8.6-10.3 [facility] Comment on above: Order Comment: Pneum othorax Performed By: #### 4 1000, 45944, 20915 ####[facility] [place] [address], [facility] Chloride [Moles/Vol] 97 mmol/L Low 98-107 [facility] Comment on above: Order Comment: Pneum othorax Performed By: #### 4 1000, 82043, 56632 ####[facility] [place] [address], [facility] CO2 [Moles/Vol] 30 mmol/L Normal 21-31 [facility] Comment on above: Order Comment: Pneum othorax Performed By: #### 4 1000, 05464, 59562 ####[facility] [place] [address], [facility] Creatinine [Mass/Vol] 0.92 mg/dL Normal 0.70-1.30 [facility] Comment on above: Order Comment: Pneum othorax Performed By: #### 4 1000, 83086, 05045 ####[facility] [place] [address], [facility] GFR/1.73 sq M.predicted among blacks MDRD (S/P/Bld) [Vol rate/Area] mL/min/{1.73_m2} Normal >60 [facility] Comment on above: Order Comment: Pneum othorax Result Comment: Calc ulation may not be valid for patients over 70 years Performed By: #### 4 1000, 44583, 98223 ####[facility] [place] [address], [facility] GFR/1.73 sq M.predicted among non-blacks MDRD (S/P/Bld) [Vol rate/Area] mL/min/{1.73_m2} Normal >60 [facility] Comment on above: Order Comment: Pneum othorax Result Comment: Calc ulation may not be valid for patients over 70 years Performed By: #### 4 1000, 43758, 62356 ####[facility] [place] [address], [facility] Glucose [Mass/Vol] 107 mg/dL High 70-100 [facility] Comment on above: Order Comment: Pneum othorax Performed By: #### 4 1000, 04759, 48567 ####[facility] [place] [address], [facility] Potassium [Moles/Vol] 4.1 mmol/L Normal 3.5-5.1 [facility] Comment on above: Order Comment: Pneum othorax Performed By: #### 4 1000, 31011, 83647 ####[facility] [place] [address], [facility] Sodium [Moles/Vol] 134 mmol/L Low 136-145 [facility] Comment on above: Order Comment: Pneum othorax Performed By: #### 4 1000, 57652, 12682 ####[facility] [place] [address], [facility] Urea nitrogen [Mass/Vol] 22 mg/dL Normal 7-25 [facility] Comment on above: Order Comment: Pneum othorax Performed By: #### 4 1000, 44048, 70661 ####[facility] [place] [address], [place] CBC COMPLETE BLOOD COUNTon 1 2-19-2021 Erythrocyte distribution width (RBC) [Ratio] 12.5 % Normal 11.5-15.0 [facility] Comment on above: Order Comment: No: D o not add to previous draw Performed By: #### 5 0608 #### [facility] [address] [place] [address], [facility] Hematocrit (Bld) [Volume fraction] 27.1 % Low 39.0-50.0 [facility] Comment on above: Order Comment: No: D o not add to previous draw Performed By: #### 5 0608 #### [facility] [address] [place] [id number], [facility] Hemoglobin (Bld) [Mass/Vol] 8.8 g/dL Low 13.0-17.0 [facility] Comment on above: Order Comment: No: D o not add to previous draw Performed By: #### 5 0608 #### [facility] [address] [place] [address], [facility] MCH (RBC) [Entitic mass] 30.1 pg Normal 27.0-33.0 [facility] Comment on above: Order Comment: No: D o not add to previous draw Performed By: #### 5 0608 #### [facility] [address] [place] [address], [facility] MCHC (RBC) [Mass/Vol] 32.5 g/dL Normal 32.0-35.0 [facility] Comment on above: Order Comment: No: D o not add to previous draw Performed By: #### 5 0608 #### [facility] [address] [place] [address], [facility] MCV (RBC) [Entitic vol] 92.8 fL Normal 82.0-98.0 [facility] Comment on above: Order Comment: No: D o not add to previous draw Performed By: #### 5 0608 #### [facility] [address] Nucleated RBC/100 WBC (Bld) [Ratio] 0 % Normal 0-0 [facility] Comment on above: Order Comment: No: D o not add to previous draw Performed By: #### 5 0608 #### [facility] [address] [facility] [place] [address], [facility] PLAT CNT 147 10*3/uL Low 150-400 [facility] Comment on above: Order Comment: No: D o not add to previous draw Performed By: #### 5 0608 #### [facility] [address] [place] [address], [facility] RBC (Bld) [#/Vol] 2.92 10*6/uL Low 4.20-5.70 [facility] Comment on above: Order Comment: No: D o not add to previous draw Performed By: #### 5 0608 #### [facility] [address] [facility] [place] [address], [facility] WBC (Bld) [#/Vol] 6.78 10*3/uL Normal 4.00-10.60 [facility] Comment on above: Order Comment: No: D o not add to previous draw Performed By: #### 5 0608 #### [facility] [address] [place] [address], [facility] MAGNESIUM BLOODon 07-16-2021 Magnesium [Mass/Vol] 2.0 mg/dL Normal 1.9-2.7 [facility] Comment on above: Order Comment: Pneum othorax Performed By: #### 4 1000, 15264, 83097 ####[facility] [place] [address], [facility] PHOSPHORUS BLOODon Phosphate [Mass/Vol] 3.5 mg/dL Normal 2.5-5.0 [facility] Comment on above: Order Comment: Pneum othorax Performed By: #### 4 1000, 42285, 53849 ####[facility] POC GLUCOSE LABon 07-16-2021 Glucose [Mass/Vol] 118 mg/dL High 70-100 [facility] Comment on above: Performed By: #### 8 5499 #### [id number] [place] [address] PORTABLE CHEST 1 VIEWon 06-28 PORTABLE CHEST 1 VIEW [facility] Department of Radiology [address] [place] [id number] Patient Name: ISRAEL DEVINE : 1950 Sex: M Age: Race: White Pt. Location: [id number] Patient Status: I Ordered Date: 07/16/2021 1:55:00 [...] pneumothorax. Electronically signed: Cece Kim. Transcribed by: [email or web address], User Resident: Electronically Signed by: CECE Michael JUDY @ 07/16/2021 02:28 PM Normal [facility] Comment on above: Order Comment: The A ptima SARS-CoV-2 assay is a nucleic acid amplification test intended for the qualitative detection of RNA from SARS-CoV-2 isolated and purified from nasopharyngeal (HOSPITAL CARRIER),oropharyngeal (OP), nasal swab, sputum, and bronchoalveolar lavage (BAL) specimens from patients with signs and symptoms of infection who are suspected of COVID-19. Results are for the identification of SARS-CoV-2 RNA. The SARS-CoV-2 RNA is generally detectable during the acute phase of infection. The Aptima SARS-CoV-2 Assay on the [place] [employer] [place] Fusion system is intended for use by laboratory personnel specifically instructed and trained in the operation of the [place] and [place] Fusion system. The Aptima SARS-CoV-2 assay is [...] and epidemiological information. PORTABLE CHEST 1 VIEW [facility] Department of Radiology [address] [place] [address] Patient Name: ISRAEL DEVINE : 1950 Sex: M Age: Race: White Pt. Location: [id number] Patient Status: I Ordered Date: 07/16/2021 5:00:00 [...] effusion. Electronically signed: Cece Kim. Transcribed by: [email or web address], User Resident: Electronically Signed by: CECE KIM @ 07/16/2021 07:13 AM Normal [facility] Comment on above: Order Comment: Pneum othorax BASIC METABOLIC PANELon - Calcium [Mass/Vol] 7.6 mg/dL Low 8.6-10.3 [facility] Comment on above: Order Comment: No: D o not add to previous draw Performed By: #### 3 0965 #### [facility] [address] [place] [address], [place] Chloride [Moles/Vol] 98 mmol/L Normal 98-107 [facility] Comment on above: Order Comment: No: D o not add to previous draw Performed By: #### 3 0965 #### [facility] [address] [place] [address], [place] CO2 [Moles/Vol] 28 mmol/L Normal 21-31 [facility] Comment on above: Order Comment: No: D o not add to previous draw Performed By: #### 3 0965 #### [facility] [address] [place] [address], [place] Creatinine [Mass/Vol] 0.78 mg/dL Normal 0.70-1.30 [facility] Comment on above: Order Comment: No: D o not add to previous draw Performed By: #### 3 0965 #### [facility] [address] [place] [address], [place] GFR/1.73 sq M.predicted among blacks MDRD (S/P/Bld) [Vol rate/Area] mL/min/{1.73_m2} Normal >60 [facility] Comment on above: Order Comment: No: D o not add to previous draw Result Comment: Calc ulation may not be valid for patients over 70 years Performed By: #### 3 0965 #### [facility] [address] [place] [address], [facility] GFR/1.73 sq M.predicted among non-blacks MDRD (S/P/Bld) [Vol rate/Area] mL/min/{1.73_m2} Normal >60 [facility] Comment on above: Order Comment: No: D o not add to previous draw Result Comment: Calc ulation may not be valid for patients over 70 years Performed By: #### 3 0965 #### [facility] [address] [place] [address], [place] Glucose [Mass/Vol] 123 mg/dL High 70-100 [facility] Comment on above: Order Comment: No: D o not add to previous draw Performed By: #### 3 0965 #### [facility] [address] [place] [address], [place] Potassium [Moles/Vol] 4.4 mmol/L Normal 3.5-5.1 [facility] Comment on above: Order Comment: No: D o not add to previous draw Performed By: #### 3 0965 #### [facility] [address] [place] [address], [place] Sodium [Moles/Vol] 132 mmol/L Low 136-145 [facility] Comment on above: Order Comment: No: D o not add to previous draw Performed By: #### 3 0965 #### [facility] [address] [place] [address], [facility] Urea nitrogen [Mass/Vol] 23 mg/dL Normal 7-25 [facility] Comment on above: Order Comment: No: D o not add to previous draw Performed By: #### 3 0965 #### [facility] [address] [place] [address], [facility] CBC COMPLETE BLOOD COUNTon 09-15-2020 Erythrocyte distribution width (RBC) [Ratio] 12.6 % Normal 11.5-15.0 [facility] Comment on above: Order Comment: No: D o not add to previous draw Performed By: #### 8 5499 #### [facility] [address] [place] [address], [facility] Hematocrit (Bld) [Volume fraction] 25.3 % Low 39.0-50.0 [facility] Comment on above: Order Comment: No: D o not add to previous draw Performed By: #### 8 5499 #### [facility] [address] [place] [address], [facility] Hemoglobin (Bld) [Mass/Vol] 8.2 g/dL Low 13.0-17.0 [facility] Comment on above: Order Comment: No: D o not add to previous draw Performed By: #### 8 5499 #### [facility] [address] [place] [address], [place] IMM PLATELET FRAC 3.4 % Normal 0.8-6.3 [facility] Comment on above: Order Comment: No: D o not add to previous draw Performed By: #### 8 5499 #### [facility] [address] [place] [address], [place] MCH (RBC) [Entitic mass] 30.0 pg Normal 27.0-33.0 [facility] Comment on above: Order Comment: No: D o not add to previous draw Performed By: #### 8 5499 #### [facility] [address] [place] [address], [facility] MCHC (RBC) [Mass/Vol] 32.4 g/dL Normal 32.0-35.0 [facility] Comment on above: Order Comment: No: D o not add to previous draw Performed By: #### 8 5499 #### [facility] [address] [place] [id number], [facility] MCV (RBC) [Entitic vol] 92.7 fL Normal 82.0-98.0 [facility] Comment on above: Order Comment: No: D o not add to previous draw Performed By: #### 8 5499 #### [facility] [address] [place] [address], [facility] Nucleated RBC/100 WBC (Bld) [Ratio] 0 % Normal 0-0 [facility] Comment on above: Order Comment: No: D o not add to previous draw Performed By: #### 8 5499 #### [facility] [address] [facility] [place] [address], [facility] PLAT CNT 125 10*3/uL Low 150-400 [facility] Comment on above: Order Comment: No: D o not add to previous draw Performed By: #### 8 5499 #### [facility] [address] [place] [address], [facility] RBC (Bld) [#/Vol] 2.73 10*6/uL Low 4.20-5.70 [facility] Comment on above: Order Comment: No: D o not add to previous draw Performed By: #### 8 5499 #### [facility] [address] [place] [id number], [place] WBC (Bld) [#/Vol] 9.34 10*3/uL Normal 4.00-10.60 [facility] Comment on above: Order Comment: No: D o not add to previous draw Performed By: #### 8 5499 #### [facility] [address] [place] [address], [facility] MAGNESIUM BLOODon 07-15-2021 Magnesium [Mass/Vol] 2.0 mg/dL Normal 1.9-2.7 [facility] Comment on above: Order Comment: No: D o not add to previous draw Performed By: #### 3 0965 #### [facility] [address] [place] [address], [facility] PHOSPHORUS BLOODon Phosphate [Mass/Vol] 3.4 mg/dL Normal 2.5-5.0 [facility] Comment on above: Performed By: #### 3 0965 #### [facility] [address] [place] [address], [facility] POC GLUCOSE LABon 07-15-2021 Glucose [Mass/Vol] 127 mg/dL High 70-100 [facility] Comment on above: Performed By: #### 3 1595 #### [facility] [address] [place] [address], [place] Glucose [Mass/Vol] 146 mg/dL High 70-100 [facility] Comment on above: Performed By: #### 5 0608 #### [facility] [address] [place] [address], [facility] PORTABLE CHEST 1 VIEWon 06-28 PORTABLE CHEST 1 VIEW [facility] Department of Radiology [address] [place] [id number] Patient Name: ISRAEL DEVINE : 1950 Sex: M Age: Race: White Pt. Location: [id number] Patient Status: I Ordered Date: 07/15/2021 5:00:00 [...] improvement Electronically signed: Kumar Ross. Transcribed by: [email or web address], User Resident: Electronically Signed by: KUMAR ROSS @ 07/16/2021 04:09 PM Normal [facility] Comment on above: Order Comment: The A ptima SARS-CoV-2 assay is a nucleic acid amplification test intended for the qualitative detection of RNA from SARS-CoV-2 isolated and purified from nasopharyngeal (HOSPITAL CARRIER),oropharyngeal (OP), nasal swab, sputum, and bronchoalveolar lavage (BAL) specimens from patients with signs and symptoms of infection who are suspected of COVID-19. Results are for the identification of SARS-CoV-2 RNA. The SARS-CoV-2 RNA is generally detectable during the acute phase of infection. The Aptima SARS-CoV-2 Assay on the [place] and [employer] [employer] system is intended for use by laboratory personnel specifically instructed and trained in the operation of the [place] and [employer] [employer] system. The Aptima SARS-CoV-2 assay is [...] patient history, and epidemiological information. BASIC METABOLIC PANEL 12- Calcium [Mass/Vol] 8.0 mg/dL Low 8.6-10.3 [facility] Comment on above: Order Comment: No: D o not add to previous draw Performed By: #### 3 0965 #### [facility] [address] [place] [address], [facility] Chloride [Moles/Vol] 101 mmol/L Normal 98-107 [facility] Comment on above: Order Comment: No: D o not add to previous draw Performed By: #### 3 0965 #### [facility] [address] [place] [address], [place] CO2 [Moles/Vol] 24 mmol/L Normal 21-31 [facility] Comment on above: Order Comment: No: D o not add to previous draw Performed By: #### 3 0965 #### [facility] [address] [place] [address], [facility] Creatinine [Mass/Vol] 0.92 mg/dL Normal 0.70-1.30 [facility] Comment on above: Order Comment: No: D o not add to previous draw Performed By: #### 3 0965 #### [facility] [address] [place] [address], [place] GFR/1.73 sq M.predicted among blacks MDRD (S/P/Bld) [Vol rate/Area] mL/min/{1.73_m2} Normal >60 [facility] Comment on above: Order Comment: No: D o not add to previous draw Result Comment: Calc ulation may not be valid for patients over 70 years Performed By: #### 3 0965 #### [facility] [address] [place] [address], [facility] GFR/1.73 sq M.predicted among non-blacks MDRD (S/P/Bld) [Vol rate/Area] mL/min/{1.73_m2} Normal >60 [facility] Comment on above: Order Comment: No: D o not add to previous draw Result Comment: Calc ulation may not be valid for patients over 70 years Performed By: #### 3 0965 #### [facility] [address] [place] [address], [facility] Glucose [Mass/Vol] 120 mg/dL High 70-100 [facility] Comment on above: Order Comment: No: D o not add to previous draw Performed By: #### 3 0965 #### [facility] [address] [place] [address], [facility] Potassium [Moles/Vol] 4.2 mmol/L Normal 3.5-5.1 [facility] Comment on above: Order Comment: No: D o not add to previous draw Performed By: #### 3 0965 #### [facility] [address] [place] [address], [place] Sodium [Moles/Vol] 134 mmol/L Low 136-145 [facility] Comment on above: Order Comment: No: D o not add to previous draw Performed By: #### 3 0965 #### [facility] [address] [place] [address], [facility] Urea nitrogen [Mass/Vol] 23 mg/dL Normal 7-25 [facility] Comment on above: Order Comment: No: D o not add to previous draw Performed By: #### 3 0965 #### [facility] [address] [place] [address], [facility] CBC COMPLETE BLOOD COUNTon 09-14-2020 Erythrocyte distribution width (RBC) [Ratio] 12.7 % Normal 11.5-15.0 [facility] Comment on above: Order Comment: No: D o not add to previous draw Performed By: #### 8 [id number] #### [facility] [address] [place] [address], [facility] Hematocrit (Bld) [Volume fraction] 30.5 % Low 39.0-50.0 [facility] Comment on above: Order Comment: No: D o not add to previous draw Performed By: #### 8 5499 #### [facility] [address] [place] [address], [facility] Hemoglobin (Bld) [Mass/Vol] 9.8 g/dL Low 13.0-17.0 [facility] Comment on above: Order Comment: No: D o not add to previous draw Performed By: #### 8 5499 #### [facility] [address] [place] [address], [facility] MCH (RBC) [Entitic mass] 30.6 pg Normal 27.0-33.0 [facility] Comment on above: Order Comment: No: D o not add to previous draw Performed By: #### 8 5499 #### [facility] [address] [place] [address], [facility] MCHC (RBC) [Mass/Vol] 32.1 g/dL Normal 32.0-35.0 [facility] Comment on above: Order Comment: No: D o not add to previous draw Performed By: #### 8 5499 #### [facility] [address] [place] [address], [facility] MCV (RBC) [Entitic vol] 95.3 fL Normal 82.0-98.0 [facility] Comment on above: Order Comment: No: D o not add to previous draw Performed By: #### 8 5499 #### [facility] [address] [place] [address], [facility] Nucleated RBC/100 WBC (Bld) [Ratio] 0 % Normal 0-0 [facility] Comment on above: Order Comment: No: D o not add to previous draw Performed By: #### 8 5499 #### [facility] [address] [place] [id number], [facility] PLAT CNT 110 10*3/uL Low 150-400 [facility] Comment on above: Order Comment: No: D o not add to previous draw Performed By: #### 8 5499 #### [facility] [address] [place] [address], [facility] RBC (Bld) [#/Vol] 3.20 10*6/uL Low 4.20-5.70 [facility] Comment on above: Order Comment: No: D o not add to previous draw Performed By: #### 8 5499 #### [facility] [address] [place] [id number], [facility] WBC (Bld) [#/Vol] 11.71 10*3/uL High 4.00-10.60 [facility] Comment on above: Order Comment: No: D o not add to previous draw Performed By: #### 8 5499 #### [facility] [address] [place] [address], [facility] MAGNESIUM BLOODon 07-14-2021 Magnesium [Mass/Vol] 2.1 mg/dL Normal 1.9-2.7 [facility] Comment on above: Order Comment: No: D o not add to previous draw Performed By: #### 3 0738 #### [facility] [address] [place] [id number], [facility] PHOSPHORUS BLOODon Phosphate [Mass/Vol] 1.6 mg/dL Low 2.5-5.0 [facility] Comment on above: Order Comment: No: D o not add to previous draw Performed By: #### 3 0738 #### [facility] [address] [place] [id number], [facility] POC GLUCOSE LABon 07-14-2021 Glucose [Mass/Vol] 156 mg/dL High 70-100 [facility] Comment on above: Performed By: #### 3 1595 #### [facility] [address] [facility] [place] [address], [facility] Glucose [Mass/Vol] 158 mg/dL High 70-100 [facility] Comment on above: Performed By: #### 3 1595 #### [facility] [address] [place] [address], [facility] Glucose [Mass/Vol] 149 mg/dL High 70-100 [facility] Comment on above: Performed By: #### 5 0608 #### [facility] [address] [facility] [place] [address], [place] Glucose [Mass/Vol] 156 mg/dL High 70-100 [facility] Comment on above: Performed By: #### 5 0608 #### [facility] [address] [facility] [place] [address], [facility] PORTABLE CHEST 1 VIEWon 06-28 PORTABLE CHEST 1 VIEW [facility] Department of Radiology [address] [place] [id number] Patient Name: ISRAEL DEVINE : 1950 Sex: M Age: Race: White Pt. Location: [id number] Patient Status: I Ordered Date: 07/14/2021 5:00:00 [...] base. Electronically signed: Gretta Perkins. Transcribed by: [email or web address], User Resident: Electronically Signed by: GRETTA PERKINS @ 07/14/2021 07:18 AM Normal [facility] Comment on above: Order Comment: evalu ate for Pneumothorax POTASSIUM BLOODon 07-14-2021 Potassium [Moles/Vol] 3.8 mmol/L Normal 3.5-5.1 [facility] Comment on above: Order Comment: Pneum othorax Performed By: #### 4 1406 ####[facility] [address] APTTon 07-13-2021 aPTT Coag (Bld) [Time] 34.0 s Normal 25.0-35.0 [facility] Comment on above: Order Comment: No: [...] PURPOSE. Performed By: #### 5 0608 #### [facility] [address] [place] [address], [facility] ARTERIAL BLOOD GAS WITH ICAo n 07-13-2021 BASE EXCESS -1 mmol/L Normal -2-3 [facility] Comment on above: Performed By: #### 8 5499 #### [facility] [address] [place] [address], [place] [employer] NASAL CANNULA Normal [facility] Comment on above: Performed By: #### 8 5499 #### [facility] [address] [place] [address], [place] HCO3 (Bld) [Moles/Vol] 24 mmol/L Normal 21-28 [facility] Comment on above: Performed By: #### 8 5499 #### [facility] [address] [place] [address], [place] IONIZED CALCIUM 1.17 mmol/L Normal 1.13-1.32 [facility] Comment on above: Performed By: #### 8 5499 #### [facility] [address] [place] [address], [place] LPM 2.0 LPM Normal [facility] Comment on above: Performed By: #### 8 5499 #### [facility] [address] [place] [address], [place] Oxygen (Bld) [Partial pressure] 96 mm[Hg] Normal 83-108 [facility] Comment on above: Performed By: #### 8 5499 #### [facility] [address] [place] [address], [place] Oxygen saturation in Blood 96.5 % Normal 94.0-97.0 [facility] Comment on above: Performed By: #### 8 5499 #### [facility] [address] [place] [address], [place] PCO2 38 mmHg Normal 35-45 [facility] Comment on above: Performed By: #### 8 5499 #### [facility] [address] [place] [address], [place] pH (Bld) 7.40 [pH] Normal 7.35-7.45 [facility] Comment on above: Performed By: #### 8 5499 #### [facility] [address] [place] [address], [facility] BASIC METABOLIC PANELon 12- Calcium [Mass/Vol] 8.1 mg/dL Low 8.6-10.3 [facility] Comment on above: Order Comment: No: D o not add to previous draw Performed By: #### 5 0608 #### [facility] [address] [place] [address], [place] Chloride [Moles/Vol] 108 mmol/L High 98-107 [facility] Comment on above: Order Comment: No: D o not add to previous draw Performed By: #### 5 0608 #### [facility] [address] [place] [address], [place] CO2 [Moles/Vol] 24 mmol/L Normal 21-31 [facility] Comment on above: Order Comment: No: D o not add to previous draw Performed By: #### 5 0608 #### [facility] [address] [place] [address], [place] Creatinine [Mass/Vol] 1.00 mg/dL Normal 0.70-1.30 [facility] Comment on above: Order Comment: No: D o not add to previous draw Performed By: #### 5 0608 #### [facility] [address] [place] [address], [place] GFR/1.73 sq M.predicted among blacks MDRD (S/P/Bld) [Vol rate/Area] mL/min/{1.73_m2} Normal >60 [facility] Comment on above: Order Comment: No: D o not add to previous draw Result Comment: Calc ulation may not be valid for patients over 70 years Performed By: #### 5 0608 #### [facility] [address] [place] [address], [place] GFR/1.73 sq M.predicted among non-blacks MDRD (S/P/Bld) [Vol rate/Area] mL/min/{1.73_m2} Normal >60 [facility] Comment on above: Order Comment: No: D o not add to previous draw Result Comment: Calc ulation may not be valid for patients over 70 years Performed By: #### 5 0608 #### [facility] [address] [place] [address], [place] Glucose [Mass/Vol] 118 mg/dL High 70-100 [facility] Comment on above: Order Comment: No: D o not add to previous draw Performed By: #### 5 0608 #### [facility] [address] [place] [address], [place] Potassium [Moles/Vol] 4.3 mmol/L Normal 3.5-5.1 [facility] Comment on above: Order Comment: No: D o not add to previous draw Performed By: #### 5 0608 #### [facility] [address] [place] [address], [place] Sodium [Moles/Vol] 139 mmol/L Normal 136-145 [facility] Comment on above: Order Comment: No: D o not add to previous draw Performed By: #### 5 0608 #### [facility] [address] [place] [address], [place] Urea nitrogen [Mass/Vol] 20 mg/dL Normal 7-25 [facility] Comment on above: Order Comment: No: D o not add to previous draw Performed By: #### 5 0608 #### [facility] [address] [place] [address], [place] CBC COMPLETE BLOOD COUNTon 09-13-2020 Erythrocyte distribution width (RBC) [Ratio] 12.8 % Normal 11.5-15.0 [facility] Comment on above: Order Comment: No: D o not add to previous draw Performed By: #### 8 5499 #### [facility] [address] [place] [address], [place] Hematocrit (Bld) [Volume fraction] 30.3 % Low 39.0-50.0 [facility] Comment on above: Order Comment: No: D o not add to previous draw Performed By: #### 8 5499 #### [facility] [address] [place] [address], [facility] Hemoglobin (Bld) [Mass/Vol] 10.1 g/dL Low 13.0-17.0 [facility] Comment on above: Order Comment: No: D o not add to previous draw Performed By: #### 8 5499 #### [facility] [address] [place] [address], [facility] MCH (RBC) [Entitic mass] 30.6 pg Normal 27.0-33.0 [facility] Comment on above: Order Comment: No: D o not add to previous draw Performed By: #### 8 5499 #### [facility] [address] MCHC (RBC) [Mass/Vol] 33.3 g/dL Normal 32.0-35.0 [facility] Comment on above: Order Comment: No: D o not add to previous draw Performed By: #### 8 5499 #### [facility] [address] [place] [address], [facility] MCV (RBC) [Entitic vol] 91.8 fL Normal 82.0-98.0 [facility] Comment on above: Order Comment: No: D o not add to previous draw Performed By: #### 8 5499 #### [facility] [address] [place] [address], [facility] Nucleated RBC/100 WBC (Bld) [Ratio] 0 % Normal 0-0 [facility] Comment on above: Order Comment: No: D o not add to previous draw Performed By: #### 8 5499 #### [facility] [address] [place] [address], [facility] PLAT CNT 152 10*3/uL Normal 150-400 [facility] Comment on above: Order Comment: No: D o not add to previous draw Performed By: #### 8 5499 #### [facility] [address] [place] [address], [facility] RBC (Bld) [#/Vol] 3.30 10*6/uL Low 4.20-5.70 [facility] Comment on above: Order Comment: No: D o not add to previous draw Performed By: #### 8 5499 #### [facility] [address] [place] [address], [facility] WBC (Bld) [#/Vol] 10.66 10*3/uL High 4.00-10.60 [facility] Comment on above: Order Comment: No: D o not add to previous draw Performed By: #### 8 5499 #### [facility] [address] LACTATE BLOODon 07-13-2021 Lactate [Moles/Vol] 1.0 mmol/L Normal .5-2.2 [facility] Comment on above: Order Comment: Pneum othorax Performed By: #### 1 0054 ####[facility] [address] MAGNESIUM BLOODon 07-13-2021 Magnesium [Mass/Vol] 2.2 mg/dL Normal 1.9-2.7 [facility] Comment on above: Order Comment: No: D o not add to previous draw Performed By: #### 5 0608 #### [facility] [address] [facility]. [address] Operative Reporton 1 Operative Report MR#: [id number] I [facility] Pt. Name: Israel Devine Room #: [id number] Discharge Date: Birthdate: 1950 OPERATIVE REPORT DATE [...] device. 4. Independent interpretation of transesophageal echocardiogram. WORKFLOW DEVELOPER: Mason. ANESTHESIA: General with endotracheal intubation. ANESTHESIOLOGIST: [...] Dotson MD Date Trans: 07/12/2021 11:51 P/tangela [id number] cc: Deb Klein M.D. [address] [id number] Normal [facility] PHOSPHORUS BLOODon Phosphate [Mass/Vol] 3.0 mg/dL Normal 2.5-5.0 [facility] Comment on above: Order Comment: No: D o not add to previous draw Performed By: #### 5 0608 #### [facility] [address] [place] [address], [place] POC GLUCOSE LABon 07-13-2021 Glucose [Mass/Vol] 146 mg/dL High 70-100 [facility] Comment on above: Performed By: #### 5 0608 #### [facility] [address] [place] [address], [place] Glucose [Mass/Vol] 132 mg/dL High 70-100 [facility] Comment on above: Performed By: #### 8 5499 #### [facility] [address] [place] [address], [place] Glucose [Mass/Vol] 88 mg/dL Normal 70-100 [facility] Comment on above: Performed By: #### 5 0608 #### [facility] [address] [place] [address], [place] Glucose [Mass/Vol] 96 mg/dL Normal 70-100 [facility] Comment on above: Performed By: #### 5 0608 #### [facility] [address] [place] [address], [place] Glucose [Mass/Vol] 125 mg/dL High 70-100 [facility] Comment on above: Performed By: #### 8 5499 #### [facility] [address] [place] [address], [place] Glucose [Mass/Vol] 121 mg/dL High 70-100 [facility] Comment on above: Performed By: #### 3 1595 #### [facility] [address] [place] [address], [place] Glucose [Mass/Vol] 133 mg/dL High 70-100 [facility] Comment on above: Performed By: #### 5 0608 #### [facility] [address] [facility] [place] [address], [facility] Glucose [Mass/Vol] 98 mg/dL Normal 70-100 [facility] Comment on above: Performed By: #### 8 5499 #### [facility] [address] [facility] [place] [address], [facility] Glucose [Mass/Vol] 90 mg/dL Normal 70-100 [facility] Comment on above: Performed By: #### 5 0608 #### [facility] [address] [place] [address], [facility] PORTABLE CHEST 1 VIEWon 06-28 PORTABLE CHEST 1 VIEW [facility] Department of Radiology [address] [place] [id number] Patient Name: ISRAEL DEVINE : 1950 Sex: M Age: Race: White Pt. Location: [place] [address] Patient Status: I Ordered Date: 07/13/2021 7:00:00 [...] base. Electronically signed: Gretta Perkins. Transcribed by: [email or web address], User Resident: Electronically Signed by: GRETTA PERKINS @ 07/13/2021 07:44 AM Normal [facility] Comment on above: Order Comment: The A ptima SARS-CoV-2 assay is a nucleic acid amplification test intended for the qualitative detection of RNA from SARS-CoV-2 isolated and purified from nasopharyngeal (HOSPITAL CARRIER),oropharyngeal (OP), nasal swab, sputum, and bronchoalveolar lavage (BAL) specimens from patients with signs and symptoms of infection who are suspected of COVID-19. Results are for the identification of SARS-CoV-2 RNA. The SARS-CoV-2 RNA is generally detectable during the acute phase of infection. The Aptima SARS-CoV-2 Assay on the [employer] [employer] system is intended for use by laboratory personnel specifically instructed and trained in the operation of the [employer] [employer] system. The Aptima SARS-CoV-2 assay is [...] [Relative time] 1.28 {INR} High 0.91-1.16 [facility] Comment on above: Order Comment: No: D [...] 1995;108:[id number]. Performed By: #### 5 0608 #### [facility] [address] PT Coag (PPP) [Time] 16.0 s High 12.3-14.8 [facility] Comment on above: Order Comment: No: D o not add to previous draw Result Comment: ALL RESULTS MUST BE INTERPRETED WITH RESPECT TO BLOOD DRAWING ARTIFACT OR DILUTION ERROR OF ANTICOAGULANT AT THE TIME OF SAMPLING. Performed By: #### 5 0608 #### [facility] [address] [employer] [address] ACTIVATED CLOTTING TIMEon ACTIVATED CLOTTING TIME 126 sec Normal 82-152 [facility] Comment on above: Performed By: #### 3 1792 #### [facility] [address] [place] [address], [facility] ACTIVATED CLOTTING TIME 120 sec Normal 82-152 [facility] Comment on above: Performed By: #### 3 1595 #### [facility] [address] [place] [address], [facility] ACTIVATED CLOTTING TIME 603 sec High 82-152 [facility] Comment on above: Performed By: #### 3 1595 #### [facility] [address] [place] [address], [facility] ACTIVATED CLOTTING TIME 603 sec High 82-152 [facility] Comment on above: Performed By: #### 3 1595 #### [facility] [address] [place] [address], [facility] ACTIVATED CLOTTING TIME 464 sec High 82-152 [facility] Comment on above: Performed By: #### 8 5499 #### [facility] [address] [place] [address], [facility] ACTIVATED CLOTTING TIME 664 sec High 82-152 [facility] Comment on above: Performed By: #### 8 5499 #### [facility] [address] [place] [address], [facility] ACTIVATED CLOTTING TIME 609 sec High 82-152 [facility] Comment on above: Performed By: #### 8 5499 #### [facility] [address] [place] [address], [facility] ACTIVATED CLOTTING TIME 144 sec Normal 82-152 [facility] Comment on above: Performed By: #### 8 5499 #### [facility] [address] [place] [address], [facility] APTTon 07-12-2021 aPTT Coag (Bld) [Time] 47.7 s High 25.0-35.0 [facility] Comment on above: Order Comment: No: D [...] PURPOSE. Performed By: #### 5 0608 #### [facility] [address] [place] [address], [facility] aPTT Coag (Bld) [Time] 35.9 s High 25.0-35.0 [facility] Comment on above: Result Comment: ALL RESULTS [...] PURPOSE. Performed By: #### 5 0608 #### [facility] [address] [facility] ARTERIAL BLOOD GAS WITH ICAo n 07-12-2021 BASE EXCESS -3 mmol/L Low -2-3 [facility] Comment on above: Performed By: #### 3 0738 #### [facility] [address] [place] [address], [facility] HCO3 (Bld) [Moles/Vol] 23 mmol/L Normal 21-28 [facility] Comment on above: Performed By: #### 3 0738 #### [facility] [address] [facility] [place] [place] [address], [facility] MIN VOLUME 14.0 Normal [facility] Comment on above: Performed By: #### 3 0738 #### [facility] [address] [place] [address], [facility] MODALITY SIMV Normal [facility] Comment on above: Performed By: #### 3 0738 #### [facility] [address] [place] [address], [facility] Oxygen (Bld) [Partial pressure] 120 mm[Hg] Critically high 83-108 [facility] Comment on above: Performed By: #### 3 0738 #### [facility] [address] [place] [address], [facility] Oxygen saturation in Blood 98.1 % High 94.0-97.0 [facility] Comment on above: Performed By: #### 3 0738 #### [facility] [address] [place] [address], [place] PCO2 44 mmHg Normal 35-45 [facility] Comment on above: Performed By: #### 3 0738 #### [facility] [address] [place] [address], [place] PF RATIO 240 mmHg Normal [facility] Comment on above: Performed By: #### 3 0738 #### [facility] [address] [place] [address], [place] pH (Bld) 7.33 [pH] Low 7.35-7.45 [facility] Comment on above: Performed By: #### 3 0738 #### [facility] [address] [place] [address], [place] Respiratory rate 18 /min Normal [facility] Comment on above: Performed By: #### 3 0738 #### [facility] [address] [place] [address], [place] TIDAL VOLUME (VT) CC 600 Normal [facility] Comment on above: Performed By: #### 3 0738 #### [facility] [address] [place] [address], [place] BASE EXCESS -6 mmol/L Low -2-3 [facility] Comment on above: Performed By: #### 3 0738 #### [facility] [address] [place] [address], [place] [employer] MV Normal [facility] Comment on above: Performed By: #### 3 0738 #### [facility] [address] [place] [address], [place] FIO2 50 % Normal [facility] Comment on above: Performed By: #### 3 0738 #### [facility] [address] [place] [address], [facility] HCO3 (Bld) [Moles/Vol] 21 mmol/L Normal 21-28 [facility] Comment on above: Performed By: #### 3 0738 #### [facility] [address] [place] [id number], [facility] IONIZED CALCIUM 1.14 mmol/L Normal 1.13-1.32 [facility] Comment on above: Performed By: #### 3 0738 #### [facility] [address] [place] [address], [facility] MIN VOLUME 6.4 Normal [facility] Comment on above: Performed By: #### 3 0738 #### [facility] [address] [place] [address], [facility] MODALITY AC Normal [facility] Comment on above: Performed By: #### 3 0738 #### [facility] [address] Oxygen (Bld) [Partial pressure] 90 mm[Hg] Normal 83-108 [facility] Comment on above: Performed By: #### 3 0738 #### [facility] [address] [place] [address], [facility] Oxygen saturation in Blood 95.8 % Normal 94.0-97.0 [facility] Comment on above: Performed By: #### 3 0738 #### [facility] [address] [place] [address], [facility] PCO2 46 mmHg High 35-45 [facility] Comment on above: Performed By: #### 3 0738 #### [facility] [address] [facility] [place] [place] [address], [facility] PEEP 8.0 CMH20 Normal [facility] Comment on above: Performed By: #### 3 0738 #### [facility] [address] [place] [address], [facility] PF RATIO 180 mmHg Normal [facility] Comment on above: Performed By: #### 3 0738 #### [facility] [address] [place] [address], [facility] pH (Bld) 7.27 [pH] Low 7.35-7.45 [facility] Comment on above: Performed By: #### 3 0738 #### [facility] [address] [place] [address], [facility] PRESSURE SUPPORT 10 Normal [facility] Comment on above: Performed By: #### 3 0738 #### [facility] [address] [place] [address], [facility] Respiratory rate 14 /min Normal [facility] Comment on above: Performed By: #### 3 0738 #### [facility] [address] [place] [address], [facility] TIDAL VOLUME (VT) CC 450 Normal [facility] Comment on above: Performed By: #### 3 0738 #### [facility] [address] [place] [address], [facility] IONIZED CALCIUM 1.06 mmol/L Low 1.12-1.32 [facility] Comment on above: Performed By: #### 3 0738 #### [facility] [address] [place] [id number], [facility] Performed By: #### 8 5499 #### [facility] [address] [place] [address], [facility] BASIC METABOLIC PANELon 12 Calcium [Mass/Vol] 8.8 mg/dL Normal 8.6-10.3 [facility] Comment on above: Order Comment: No: D o not add to previous draw Performed By: #### 3 0965 #### [facility] [address] [place] [address], [facility] Chloride [Moles/Vol] 110 mmol/L High 98-107 [facility] Comment on above: Order Comment: No: D o not add to previous draw Performed By: #### 3 0965 #### [facility] [address] [place] [address], [place] CO2 [Moles/Vol] 24 mmol/L Normal 21-31 [facility] Comment on above: Order Comment: No: D o not add to previous draw Performed By: #### 3 0965 #### [facility] [address] [place] [address], [place] Creatinine [Mass/Vol] 0.94 mg/dL Normal 0.70-1.30 [facility] Comment on above: Order Comment: No: D o not add to previous draw Performed By: #### 3 0965 #### [facility] [address] [place] [address], [place] GFR/1.73 sq M.predicted among blacks MDRD (S/P/Bld) [Vol rate/Area] mL/min/{1.73_m2} Normal >60 [facility] Comment on above: Order Comment: No: D o not add to previous draw Result Comment: Calc ulation may not be valid for patients over 70 years Performed By: #### 3 0965 #### [facility] [address] [place] [address], [place] GFR/1.73 sq M.predicted among non-blacks MDRD (S/P/Bld) [Vol rate/Area] mL/min/{1.73_m2} Normal >60 [facility] Comment on above: Order Comment: No: D o not add to previous draw Result Comment: Calc ulation may not be valid for patients over 70 years Performed By: #### 3 0965 #### [facility] [address] [place] [address], [place] Glucose [Mass/Vol] 132 mg/dL High 70-100 [facility] Comment on above: Order Comment: No: D o not add to previous draw Performed By: #### 3 0965 #### [facility] [address] [place] [address], [facility] Potassium [Moles/Vol] 4.5 mmol/L Normal 3.5-5.1 [facility] Comment on above: Order Comment: No: D o not add to previous draw Performed By: #### 3 0965 #### [facility] [address] [place] [address], [place] Sodium [Moles/Vol] 141 mmol/L Normal 136-145 [facility] Comment on above: Order Comment: No: D o not add to previous draw Performed By: #### 3 0965 #### [facility] [address] [place] [address], [place] Urea nitrogen [Mass/Vol] 18 mg/dL Normal 7-25 [facility] Comment on above: Order Comment: No: D o not add to previous draw Performed By: #### 3 0965 #### [facility] [address] [place] [address], [place] Calcium [Mass/Vol] 7.7 mg/dL Low 8.6-10.3 [facility] Comment on above: Performed By: #### 3 0965 #### [facility] [address] [place] [address], [place] Chloride [Moles/Vol] 108 mmol/L High 98-107 [facility] Comment on above: Performed By: #### 3 0965 #### [facility] [address] [place] [address], [place] CO2 [Moles/Vol] 22 mmol/L Normal 21-31 [facility] Comment on above: Performed By: #### 3 0965 #### [facility] [address] [place] [address], [place] Creatinine [Mass/Vol] 0.90 mg/dL Normal 0.70-1.30 [facility] Comment on above: Performed By: #### 3 0965 #### [facility] [address] [place] [address], [facility] Urea nitrogen [Mass/Vol] 20 mg/dL Normal 7-25 [facility] Comment on above: Performed By: #### 3 0965 #### [facility] [address] [place] [address], [facility] Glucose [Mass/Vol] 159 mg/dL High 70-105 [facility] Comment on above: Performed By: #### 3 0965 #### [facility] [address] [place] [address], [facility] Performed By: #### 3 0738 #### [facility] [address] [place] [address], [facility] Potassium [Moles/Vol] 3.3 mmol/L Low 3.5-4.9 [facility] Comment on above: Performed By: #### 3 0965 #### [facility] [address] [place] [address], [facility] Performed By: #### 8 5499 #### [facility] [address] [place] [address], [place] Sodium [Moles/Vol] 140 mmol/L Normal 138-146 [facility] Comment on above: Performed By: #### 3 0965 #### [facility] [address] [place] [address], [facility] Performed By: #### 3 1792 #### [facility] [address] [place] [address], [facility] Performed By: #### 8 5499 #### [facility] [address] [place] [address], [facility] CBC COMPLETE BLOOD COUNTon 09-12-2020 Erythrocyte distribution width (RBC) [Ratio] 12.8 % Normal 11.5-15.0 [facility] Comment on above: Order Comment: No: D o not add to previous draw Performed By: #### 5 0608 #### [facility] [address] [place] [address], [facility] Hematocrit (Bld) [Volume fraction] 31.0 % Low 39.0-50.0 [facility] Comment on above: Order Comment: No: D o not add to previous draw Performed By: #### 5 0608 #### [facility] [address] [place] [address], [facility] Hemoglobin (Bld) [Mass/Vol] 10.4 g/dL Low 13.0-17.0 [facility] Comment on above: Order Comment: No: D o not add to previous draw Performed By: #### 5 0608 #### [facility] [address] [place] [address], [facility] MCH (RBC) [Entitic mass] 31.0 pg Normal 27.0-33.0 [facility] Comment on above: Order Comment: No: D o not add to previous draw Performed By: #### 5 0608 #### [facility] [address] [place] [address], [facility] MCHC (RBC) [Mass/Vol] 33.5 g/dL Normal 32.0-35.0 [facility] Comment on above: Order Comment: No: D o not add to previous draw Performed By: #### 5 0608 #### [facility] [address] [place] [address], [facility] MCV (RBC) [Entitic vol] 92.3 fL Normal 82.0-98.0 [facility] Comment on above: Order Comment: No: D o not add to previous draw Performed By: #### 5 0608 #### [facility] [address] [facility] [place] [address], [facility] Nucleated RBC/100 WBC (Bld) [Ratio] 0 % Normal 0-0 [facility] Comment on above: Order Comment: No: D o not add to previous draw Performed By: #### 5 0608 #### [facility] [address] Performed By: #### 8 5499 #### [facility] [address] [facility] [place] [address], [facility] PLAT CNT 162 10*3/uL Normal 150-400 [facility] Comment on above: Order Comment: No: D o not add to previous draw Performed By: #### 5 0608 #### [facility] [address] [place] [address], [facility] RBC (Bld) [#/Vol] 3.36 10*6/uL Low 4.20-5.70 [facility] Comment on above: Order Comment: No: D o not add to previous draw Performed By: #### 5 0608 #### [facility] [address] [place] [address], [facility] WBC (Bld) [#/Vol] 11.92 10*3/uL High 4.00-10.60 [facility] Comment on above: Order Comment: No: D o not add to previous draw Performed By: #### 5 0608 #### [facility] [address] [facility] [place] [address], [facility] Erythrocyte distribution width (RBC) [Ratio] 12.2 % Normal 11.5-15.0 [facility] Comment on above: Performed By: #### 8 5499 #### [facility] [address] [place] [address], [facility] Hematocrit (Bld) [Volume fraction] 28.9 % Low 39.0-50.0 [facility] Comment on above: Performed By: #### 8 5499 #### [facility] [address] [place] [address], [facility] Hemoglobin (Bld) [Mass/Vol] 9.4 g/dL Low 13.0-17.0 [facility] Comment on above: Performed By: #### 8 5499 #### [facility] [address] MCH (RBC) [Entitic mass] 30.6 pg Normal 27.0-33.0 [facility] Comment on above: Performed By: #### 8 5499 #### [facility] [address] [facility] [place] [address], [facility] MCHC (RBC) [Mass/Vol] 32.5 g/dL Normal 32.0-35.0 [facility] Comment on above: Performed By: #### 8 5499 #### [facility] [address] [place] [address], [facility] MCV (RBC) [Entitic vol] 94.1 fL Normal 82.0-98.0 [facility] Comment on above: Performed By: #### 8 5499 #### [facility] [address] [place] [address], [facility] PLAT CNT 129 10*3/uL Low 150-400 [facility] Comment on above: Performed By: #### 8 5499 #### [facility] [address] [place] [address], [facility] RBC (Bld) [#/Vol] 3.07 10*6/uL Low 4.20-5.70 [facility] Comment on above: Performed By: #### 8 5499 #### [facility] [address] [place] [address], [facility] WBC (Bld) [#/Vol] 12.08 10*3/uL High 4.00-10.60 [facility] Comment on above: Performed By: #### 8 5499 #### [facility] [address] [place] [address], [facility] LACTATE BLOODon 07-12-2021 Lactate [Moles/Vol] 2.0 mmol/L Normal .5-2.2 [facility] Comment on above: Order Comment: Pneum othorax Performed By: #### 1 0054 ####[facility] [place] [address], [facility] Lactate [Moles/Vol] 1.9 mmol/L Normal .5-2.2 [facility] Comment on above: Performed By: #### 8 5499 #### [facility] [address] [place] [address], [facility] MAGNESIUM BLOODon 07-12-2021 Magnesium [Mass/Vol] 2.3 mg/dL Normal 1.9-2.7 [facility] Comment on above: Order Comment: No: D o not add to previous draw Performed By: #### 3 0965 #### [facility] [address] [place] [address], [facility] Magnesium [Mass/Vol] 2.8 mg/dL High 1.9-2.7 [facility] Comment on above: Performed By: #### 3 0965 #### [facility] [address] [place] [address], [facility] PERFUSION BLOOD PANELon 06-28 BASE EXCESS -4.0 mmol/L Low -2.0-3.0 [facility] Comment on above: Performed By: #### 3 0738 #### [facility] [address] [place] [address], [facility] Hematocrit (Bld) [Volume fraction] 26 % Low 38-51 [facility] Comment on above: Performed By: #### 3 0738 #### [facility] [address] [place] [address], [facility] Hemoglobin (Bld) [Mass/Vol] 8.8 g/dL Low 12.0-17.0 [facility] Comment on above: Performed By: #### 3 0738 #### [facility] [address] [place] [address], [facility] IONIZED CALCIUM 1.16 mmol/L Normal 1.12-1.32 [facility] Comment on above: Performed By: #### 3 0738 #### [facility] [address] [place] [address], [facility] Oxygen (Bld) [Partial pressure] 89.0 mm[Hg] Normal 80.0-105.0 [facility] Comment on above: Performed By: #### 3 0738 #### [facility] [address] [place] [address], [facility] PCO2 40.5 mmHg Normal 35.0-45.0 [facility] Comment on above: Performed By: #### 3 0738 #### [facility] [address] [place] [address], [facility] pH (Bld) 7.34 [pH] Low 7.35-7.45 [facility] Comment on above: Performed By: #### 3 0738 #### [facility] [address] [place] [address], [place] Potassium [Moles/Vol] 3.2 mmol/L Low 3.5-4.9 [facility] Comment on above: Performed By: #### 3 0738 #### [facility] [address] [place] [address], [facility] Sodium [Moles/Vol] 142 mmol/L Normal 138-146 [facility] Comment on above: Performed By: #### 3 0738 #### [facility] [address] [place] [address], [place] BASE EXCESS -4.0 mmol/L Low -2.0-3.0 [facility] Comment on above: Performed By: #### 8 5499 #### [facility] [address] [place] [address], [place] Glucose [Mass/Vol] 157 mg/dL High 70-105 [facility] Comment on above: Performed By: #### 8 5499 #### [facility] [address] [place] [address], [place] Hematocrit (Bld) [Volume fraction] 26 % Low 38-51 [facility] Comment on above: Performed By: #### 8 5499 #### [facility] [address] [place] [address], [facility] Hemoglobin (Bld) [Mass/Vol] 8.8 g/dL Low 12.0-17.0 [facility] Comment on above: Performed By: #### 8 5499 #### [facility] [address] [place] [address], [facility] IONIZED CALCIUM 1.21 mmol/L Normal 1.12-1.32 [facility] Comment on above: Performed By: #### 8 5499 #### [facility] [address] [place] [address], [facility] Oxygen (Bld) [Partial pressure] 62.0 mm[Hg] Low 80.0-105.0 [facility] Comment on above: Performed By: #### 8 5499 #### [facility] [address] [place] [address], [facility] PCO2 40.8 mmHg Normal 35.0-45.0 [facility] Comment on above: Performed By: #### 8 5499 #### [facility] [address] [place] [address], [facility] pH (Bld) 7.34 [pH] Low 7.35-7.45 [facility] Comment on above: Performed By: #### 8 5499 #### [facility] [address] [place] [address], [facility] Sodium [Moles/Vol] 142 mmol/L Normal 138-146 [facility] Comment on above: Performed By: #### 8 5499 #### [facility] [address] [place] [address], [place] BASE EXCESS 2.0 mmol/L Normal -2.0-3.0 [facility] Comment on above: Performed By: #### 3 1791 #### [facility] [address] [place] [address], [place] Glucose [Mass/Vol] 152 mg/dL High 70-105 [facility] Comment on above: Performed By: #### 3 1791 #### [facility] [address] [place] [address], [place] Hematocrit (Bld) [Volume fraction] 28 % Low 38-51 [facility] Comment on above: Performed By: #### 3 1791 #### [facility] [address] [place] [address], [place] Hemoglobin (Bld) [Mass/Vol] 9.5 g/dL Low 12.0-17.0 [facility] Comment on above: Performed By: #### 3 1791 #### [facility] [address] [place] [address], [place] IONIZED CALCIUM 1.03 mmol/L Low 1.12-1.32 [facility] Comment on above: Performed By: #### 3 1791 #### [facility] [address] [place] [address], [place] Oxygen (Bld) [Partial pressure] 509.0 mm[Hg] High 80.0-105.0 [facility] Comment on above: Performed By: #### 3 1791 #### [facility] [address] [place] [address], [place] PCO2 41.3 mmHg Normal 35.0-45.0 [facility] Comment on above: Performed By: #### 3 1791 #### [facility] [address] [place] [address], [place] pH (Bld) 7.42 [pH] Normal 7.35-7.45 [facility] Comment on above: Performed By: #### 3 1791 #### [facility] [address] [place] [address], [place] Potassium [Moles/Vol] 4.2 mmol/L Normal 3.5-4.9 [facility] Comment on above: Performed By: #### 3 1792 #### [facility] [address] [place] [address], [facility] Sodium [Moles/Vol] 139 mmol/L Normal 138-146 [facility] Comment on above: Performed By: #### 3 1792 #### [facility] [address] [place] [address], [facility] BASE EXCESS 3.0 mmol/L Normal -2.0-3.0 [facility] Comment on above: Performed By: #### 8 5499 #### [facility] [address] [place] [address], [facility] Glucose [Mass/Vol] 165 mg/dL High 70-105 [facility] Comment on above: Performed By: #### 8 5499 #### [facility] [address] [place] [address], [facility] Hematocrit (Bld) [Volume fraction] 29 % Low 38-51 [facility] Comment on above: Performed By: #### 8 5499 #### [facility] [address] [place] [address], [facility] Hemoglobin (Bld) [Mass/Vol] 9.9 g/dL Low 12.0-17.0 [facility] Comment on above: Performed By: #### 8 5499 #### [facility] [address] [place] [address], [facility] Oxygen (Bld) [Partial pressure] 452.0 mm[Hg] High 80.0-105.0 [facility] Comment on above: Performed By: #### 8 5499 #### [facility] [address] [place] [address], [facility] PCO2 45.7 mmHg High 35.0-45.0 [facility] Comment on above: Performed By: #### 8 5499 #### [facility] [address] [place] [address], [facility] pH (Bld) 7.39 [pH] Normal 7.35-7.45 [facility] Comment on above: Performed By: #### 8 5499 #### [facility] [address] [place] [address], [place] Potassium [Moles/Vol] 4.3 mmol/L Normal 3.5-4.9 [facility] Comment on above: Performed By: #### 8 5499 #### [facility] [address] [place] [address], [place] Sodium [Moles/Vol] 139 mmol/L Normal 138-146 [facility] Comment on above: Performed By: #### 8 5499 #### [facility] [address] [place] [address], [place] BASE EXCESS 2.0 mmol/L Normal -2.0-3.0 [facility] Comment on above: Performed By: #### 8 5499 #### [facility] [address] [place] [address], [place] Glucose [Mass/Vol] 225 mg/dL High 70-105 [facility] Comment on above: Performed By: #### 8 5499 #### [facility] [address] [place] [address], [place] Hematocrit (Bld) [Volume fraction] 25 % Low 38-51 [facility] Comment on above: Performed By: #### 8 5499 #### [facility] [address] [place] [address], [place] Hemoglobin (Bld) [Mass/Vol] 8.5 g/dL Low 12.0-17.0 [facility] Comment on above: Performed By: #### 8 5499 #### [facility] [address] [place] [address], [place] IONIZED CALCIUM 1.05 mmol/L Low 1.12-1.32 [facility] Comment on above: Performed By: #### 8 5499 #### [facility] [address] [place] [address], [facility] Oxygen (Bld) [Partial pressure] 446.0 mm[Hg] High 80.0-105.0 [facility] Comment on above: Performed By: #### 8 5499 #### [facility] [address] [place] [address], [facility] PCO2 49.0 mmHg High 35.0-45.0 [facility] Comment on above: Performed By: #### 8 5499 #### [facility] [address] [place] [address], [facility] pH (Bld) 7.36 [pH] Normal 7.35-7.45 [facility] Comment on above: Performed By: #### 8 5499 #### [facility] [address] [place] [address], [place] Potassium [Moles/Vol] 4.3 mmol/L Normal 3.5-4.9 [facility] Comment on above: Performed By: #### 8 5499 #### [facility] [address] [place] [address], [place] Sodium [Moles/Vol] 138 mmol/L Normal 138-146 [facility] Comment on above: Performed By: #### 8 5499 #### [facility] [address] [place] [address], [place] BASE EXCESS 3.0 mmol/L Normal -2.0-3.0 [facility] Comment on above: Performed By: #### 8 5499 #### [facility] [address] [place] [address], [place] Glucose [Mass/Vol] 97 mg/dL Normal 70-105 [facility] Comment on above: Performed By: #### 8 5499 #### [facility] [address] [place] [address], [facility] Hematocrit (Bld) [Volume fraction] 28 % Low 38-51 [facility] Comment on above: Performed By: #### 8 5499 #### [facility] [address] [place] [address], [facility] Hemoglobin (Bld) [Mass/Vol] 9.5 g/dL Low 12.0-17.0 [facility] Comment on above: Performed By: #### 8 5499 #### [facility] [address] [facility] [place] [place] [address], [facility] IONIZED CALCIUM 0.97 mmol/L Low 1.12-1.32 [facility] Comment on above: Performed By: #### 8 5499 #### [facility] [address] [facility] [place] [address], [facility] Oxygen (Bld) [Partial pressure] 501.0 mm[Hg] High 80.0-105.0 [facility] Comment on above: Performed By: #### 8 5499 #### [facility] [address] [facility] [place] [place] [address], [facility] PCO2 38.5 mmHg Normal 35.0-45.0 [facility] Comment on above: Performed By: #### 8 5499 #### [facility] [address] [facility] [place] [address], [facility] pH (Bld) 7.45 [pH] Normal 7.35-7.45 [facility] Comment on above: Performed By: #### 8 5499 #### [facility] [address] [place] [address], [facility] Potassium [Moles/Vol] 3.8 mmol/L Normal 3.5-4.9 [facility] Comment on above: Performed By: #### 8 5499 #### [facility] [address] [place] [address], [facility] Sodium [Moles/Vol] 139 mmol/L Normal 138-146 [facility] Comment on above: Performed By: #### 8 5499 #### [facility] [address] [place] [address], [place] BASE EXCESS 0.0 mmol/L Normal -2.0-3.0 [facility] Comment on above: Performed By: #### 8 5499 #### [facility] [address] [place] [address], [place] Glucose [Mass/Vol] 97 mg/dL Normal 70-105 [facility] Comment on above: Performed By: #### 8 5499 #### [facility] [address] [place] [address], [facility] Hematocrit (Bld) [Volume fraction] 29 % Low 38-51 [facility] Comment on above: Performed By: #### 8 5499 #### [facility] [address] [place] [address], [facility] Hemoglobin (Bld) [Mass/Vol] 9.9 g/dL Low 12.0-17.0 [facility] Comment on above: Performed By: #### 8 5499 #### [facility] [address] [place] [address], [place] IONIZED CALCIUM 1.03 mmol/L Low 1.12-1.32 [facility] Comment on above: Performed By: #### 8 5499 #### [facility] [address] [place] [address], [place] Oxygen (Bld) [Partial pressure] 46.0 mm[Hg] Normal [facility] Comment on above: Performed By: #### 8 5499 #### [facility] [address] [place] [address], [place] PCO2 40.6 mmHg Low 41.0-51.0 [facility] Comment on above: Performed By: #### 8 5499 #### [facility] [address] [place] [address], [place] pH (Bld) 7.39 [pH] Normal 7.31-7.41 [facility] Comment on above: Performed By: #### 8 5499 #### [facility] [address] [place] [address], [place] Potassium [Moles/Vol] 3.8 mmol/L Normal 3.5-4.9 [facility] Comment on above: Performed By: #### 8 5498 #### [facility] [address] [place] [address], [place] Sodium [Moles/Vol] 141 mmol/L Normal 138-146 [facility] Comment on above: Performed By: #### 8 5499 #### [facility] [address] [place] [address], [place] BASE EXCESS -1.0 mmol/L Normal -2.0-3.0 [facility] Comment on above: Performed By: #### 3 1791 #### [facility] [address] [place] [address], [place] Glucose [Mass/Vol] 107 mg/dL High 70-105 [facility] Comment on above: Performed By: #### 3 1791 #### [facility] [address] [place] [address], [place] Hematocrit (Bld) [Volume fraction] 33 % Low 38-51 [facility] Comment on above: Performed By: #### 3 179 #### [facility] [address] [place] [address], [place] Hemoglobin (Bld) [Mass/Vol] 11.2 g/dL Low 12.0-17.0 [facility] Comment on above: Performed By: #### 3 179 #### [facility] [address] [place] [address], [place] IONIZED CALCIUM 1.16 mmol/L Normal 1.12-1.32 [facility] Comment on above: Performed By: #### 3 1792 #### [facility] [address] [place] [address], [facility] Oxygen (Bld) [Partial pressure] 293.0 mm[Hg] High 80.0-105.0 [facility] Comment on above: Performed By: #### 3 1791 #### [facility] [address] [place] [address], [place] PCO2 41.5 mmHg Normal 35.0-45.0 [facility] Comment on above: Performed By: #### 3 1791 #### [facility] [address] [place] [address], [place] pH (Bld) 7.38 [pH] Normal 7.35-7.45 [facility] Comment on above: Performed By: #### 3 1791 #### [facility] [address] [place] [address], [place] Potassium [Moles/Vol] 3.8 mmol/L Normal 3.5-4.9 [facility] Comment on above: Performed By: #### 3 1792 #### [facility] [address] [place] [address], [place] BASE EXCESS 0.0 mmol/L Normal -2.0-3.0 [facility] Comment on above: Performed By: #### 8 [id number] #### [facility] [address] [place] [address], [place] Glucose [Mass/Vol] 104 mg/dL Normal 70-105 [facility] Comment on above: Performed By: #### 8 [id number] #### [facility] [address] [place] [address], [place] Hematocrit (Bld) [Volume fraction] 35 % Low 38-51 [facility] Comment on above: Performed By: #### 8 5499 #### [facility] [address] [place] [address], [facility] Hemoglobin (Bld) [Mass/Vol] 11.9 g/dL Low 12.0-17.0 [facility] Comment on above: Performed By: #### 8 5499 #### [facility] [address] [place] [address], [facility] IONIZED CALCIUM 1.20 mmol/L Normal 1.12-1.32 [facility] Comment on above: Performed By: #### 8 5499 #### [facility] [address] [place] [address], [facility] Oxygen (Bld) [Partial pressure] 379.0 mm[Hg] High 80.0-105.0 [facility] Comment on above: Performed By: #### 8 5499 #### [facility] [address] [place] [address], [facility] PCO2 40.8 mmHg Normal 35.0-45.0 [facility] Comment on above: Performed By: #### 8 5499 #### [facility] [address] [place] [address], [facility] pH (Bld) 7.40 [pH] Normal 7.35-7.45 [facility] Comment on above: Performed By: #### 8 5499 #### [facility] [address] [place] [address], [facility] Potassium [Moles/Vol] 3.9 mmol/L Normal 3.5-4.9 [facility] Comment on above: Performed By: #### 8 5499 #### [facility] [address] [place] [address], [facility] PHOSPHORUS BLOODon 1 Phosphate [Mass/Vol] 2.7 mg/dL Normal 2.5-5.0 [facility] Comment on above: Order Comment: No: D o not add to previous draw Performed By: #### 3 0965 #### [facility] [address] [place] [address], [facility] POC GLUCOSE LABon 07-12-2021 Glucose [Mass/Vol] 115 mg/dL High 70-100 [facility] Comment on above: Performed By: #### 3 1595 #### [facility] [address] [place] [address], [place] Glucose [Mass/Vol] 132 mg/dL High 70-100 [facility] Comment on above: Performed By: #### 3 1595 #### [facility] [address] [place] [address], [place] Glucose [Mass/Vol] 109 mg/dL High 70-100 [facility] Comment on above: Performed By: #### 5 0608 #### [facility] [address] [place] [address], [place] Glucose [Mass/Vol] 150 mg/dL High 70-100 [facility] Comment on above: Performed By: #### 8 5499 #### [facility] [address] [place] [address], [place] Glucose [Mass/Vol] 162 mg/dL High 70-100 [facility] Comment on above: Performed By: #### 5 0608 #### [facility] [address] [place] [address], [place] Glucose [Mass/Vol] 97 mg/dL Normal 70-100 [facility] Comment on above: Performed By: #### 3 1595 #### [facility] [address] [facility] [place] [address], [place] PORTABLE CHEST 1 VIEWon 06-28 PORTABLE CHEST 1 VIEW [facility] Department of Radiology [address] [place] [id number] Patient Name: ISRAEL DEVINE : 1950 Sex: M Age: Race: White Pt. Location: [place] [address] Patient Status: I Ordered Date: 07/12/2021 1:00:00 [...] atelectasis Electronically signed: Amauri Ramirez. Transcribed by: [email or web address], User Resident: Electronically Signed by: AMAURI RAMIREZ @ 07/12/2021 01:53 PM Normal [facility] Comment on above: Order Comment: The A ptima SARS-CoV-2 assay is a nucleic acid amplification test intended for the qualitative detection of RNA from SARS-CoV-2 isolated and purified from nasopharyngeal (HOSPITAL CARRIER),oropharyngeal (OP), nasal swab, sputum, and bronchoalveolar lavage (BAL) specimens from patients with signs and symptoms of infection who are suspected of COVID-19. Results are for the identification of SARS-CoV-2 RNA. The SARS-CoV-2 RNA is generally detectable during the acute phase of infection. The Aptima SARS-CoV-2 Assay on the [employer] system is intended for use by laboratory personnel specifically instructed and trained in the operation of the [place] and [employer] Fusion system. The Aptima SARS-CoV-2 assay is [...] [Relative time] 1.27 {INR} High 0.91-1.16 [facility] Comment on above: Order Comment: No: D o not add to previous draw Result Comment: [facility] P RECOMMENDED INR FOR WARFARIN THERAPY ----- [...] 1995;108:231S-246S. Performed By: #### 5 0608 #### [facility] [address] [place] [address], [facility] PT Coag (PPP) [Time] 15.9 s High 12.3-14.8 [facility] Comment on above: Order Comment: No: D o not add to previous draw Result Comment: ALL RESULTS MUST BE INTERPRETED WITH RESPECT TO BLOOD DRAWING ARTIFACT OR DILUTION ERROR OF ANTICOAGULANT AT THE TIME OF SAMPLING. Performed By: #### 5 0608 #### [facility] [address] [facility] [place] [address], [facility] INR Coag (PPP) [Relative time] 1.63 {INR} High 0.91-1.16 [facility] Comment on above: Result Comment: ACCC P [...] 1995;108:231S-246S. Performed By: #### 5 0608 #### [facility] [address] [place] [id number], [facility] PT Coag (PPP) [Time] 19.2 s High 12.3-14.8 [facility] Comment on above: Result Comment: ALL RESULTS MUST BE INTERPRETED WITH RESPECT TO BLOOD DRAWING ARTIFACT OR DILUTION ERROR OF ANTICOAGULANT AT THE TIME OF SAMPLING. Performed By: #### 5 0608 #### [id number] [place] [address] CHEST AND LATERALon 07-10-20 CHEST AND LATERAL [facility] Department of Radiology [address] [place] [id number] Patient Name: ISRAEL DEVINE : 1950 [...] compatible with scarring or atelectasis. Electronically signed: Madhav Ojeda. Transcribed by: [email or web address], User Resident: Electronically Signed by: MADHAV Alegre ALYSSA @ 07/10/2021 05:29 PM Normal [facility] Comment on above: Order Comment: The A ptima SARS-CoV-2 assay is a nucleic acid amplification test intended for the qualitative detection of RNA from SARS-CoV-2 isolated and purified from nasopharyngeal (HOSPITAL CARRIER),oropharyngeal (OP), nasal swab, sputum, and bronchoalveolar lavage (BAL) specimens from patients with signs and symptoms of infection who are suspected of COVID-19. Results are for the identification of SARS-CoV-2 RNA. The SARS-CoV-2 RNA is generally detectable during the acute phase of infection. The Aptima SARS-CoV-2 Assay on the [employer] and Xpreso Fusion system is intended for use by laboratory personnel specifically instructed and trained in the operation of the [place] and [employer] Fusion system. The Aptima SARS-CoV-2 assay is [...] Pulmonary Functionon 021 Pulmonary Function MR #: [id number] [facility] PT. Name: Israel Devine Date: 05/29/2021 Date [...] Gomez MD Date Trans: 06/27/2021 01:07 P/ [id number] cc: Deb Klein M.D. [address] [facility] [phone] Normal [facility] *MRSA/MSSA DNA NASALon 05-29 *MRSA/MSSA DNA NASAL Clinical Report: (D) Specimen: NASAL SWAB Collected: 05/29/2021 12:56 Status: Final Last Updated: 05/29/2021 17:37 MSSA DNA (Final) Negative MRSA DNA (Final) Negative Normal [facility] Comment on above: Performed By: #### 3 1595 #### [facility] [address] *SARS-CoV-2 COVID-19on 05-29 SARS-CoV-2 (COVID-19) RNA RAZIA+probe Ql (Unsp spec) Not detected Normal Not Detected [facility] Comment on above: Order Comment: The A ptima SARS-CoV-2 assay is a nucleic acid amplification test intended for the qualitative detection of RNA from SARS-CoV-2 isolated and purified from nasopharyngeal (HOSPITAL CARRIER),oropharyngeal (OP), nasal swab, sputum, and bronchoalveolar lavage (BAL) specimens from patients with signs and symptoms of infection who are suspected of COVID-19. Results are for the identification of SARS-CoV-2 RNA. The SARS-CoV-2 RNA is generally detectable during the acute phase of infection. The Aptima SARS-CoV-2 Assay on the [place] [employer] [place] [employer] system is intended for use by laboratory personnel specifically instructed and trained in the operation of the [place] and [place] Fusion system. The Aptima SARS-CoV-2 assay is [...] information. Performed By: #### 3 1792 #### [facility] [address] APTTon 05-29-2021 aPTT Coag (Bld) [Time] 32.6 s Normal 25.0-35.0 [facility] Comment on above: Result Comment: ALL RESULTS [...] PURPOSE. Performed By: #### 8 5499 #### [facility] [address] [facility] [place] [place] [address], [facility] ARTERIAL BLOOD GAS W/COOXon 05-29-2021 BASE EXCESS -1 mmol/L Normal -2-3 [facility] Comment on above: Performed By: #### 3 0738 #### [facility] [address] [facility] [place] [place] [address], [facility] COHB 1.3 % Normal 0.0-1.5 [facility] Comment on above: Performed By: #### 3 0738 #### [facility] [address] [place] [address], [place] DELIVERY SYSTEMS ROOM AIR Normal [facility] Comment on above: Performed By: #### 3 0738 #### [facility] [address] [place] [address], [place] FIO2 0 % Normal [facility] Comment on above: Performed By: #### 3 0738 #### [facility] [address] [place] [address], [place] HCO3 (Bld) [Moles/Vol] 23 mmol/L Normal 21-28 [facility] Comment on above: Performed By: #### 3 0738 #### [facility] [address] [place] [address], [place] METHB 0.7 % Normal 0.0-1.5 [facility] Comment on above: Performed By: #### 3 0738 #### [facility] [address] [place] [address], [place] Oxygen (Bld) [Partial pressure] 87 mm[Hg] Normal 83-108 [facility] Comment on above: Performed By: #### 3 0738 #### [facility] [address] [place] [address], [place] Oxygen saturation in Blood 96.3 % Normal 94.0-97.0 [facility] Comment on above: Performed By: #### 3 0738 #### [facility] [address] [place] [address], [place] PCO2 35 mmHg Normal 35-45 [facility] Comment on above: Performed By: #### 3 0738 #### [facility] [address] [place] [address], [place] pH (Bld) 7.43 [pH] Normal 7.35-7.45 [facility] Comment on above: Performed By: #### 3 0738 #### [facility] [address] [place] [address], [facility] THB 13.6 g/dL Normal 12.0-16.3 [facility] Comment on above: Performed By: #### 3 0738 #### [facility] [address] [facility] [place] [place] [address], [facility] CBC W/DIFFon 05-29-2021 ABS IMM GRANS 0.0 10*3/uL Normal 0.0-0.2 [facility] Comment on above: Performed By: #### 8 5499 #### [facility] [address] [place] [address], [facility] ABS NEUTROPHILS 2.9 10*3/uL Normal 1.6-7.6 [facility] Comment on above: Performed By: #### 8 5499 #### [facility] [address] [place] [address], [facility] Basophils (Bld) [#/Vol] 0.1 10*3/uL Normal 0.0-0.2 [facility] Comment on above: Performed By: #### 8 5499 #### [facility] [address] [place] [address], [facility] Basophils/100 WBC (Bld) 1.3 % High 0.0-1.0 [facility] Comment on above: Performed By: #### 8 5499 #### [facility] [address] [facility] [place] [place] [address], [facility] Eosinophils (Bld) [#/Vol] 0.3 10*3/uL Normal 0.0-0.5 [facility] Comment on above: Performed By: #### 8 5499 #### [facility] [address] [place] [address], [facility] Eosinophils/100 WBC (Bld) 6.0 % Normal 0.0-6.0 [facility] Comment on above: Performed By: #### 8 5499 #### [facility] [address] [facility] [address] Erythrocyte distribution width (RBC) [Ratio] 12.5 % Normal 11.5-15.0 [facility] Comment on above: Performed By: #### 8 5499 #### [facility] [address] [facility] Hematocrit (Bld) [Volume fraction] 42.6 % Normal 39.0-50.0 [facility] Comment on above: Performed By: #### 8 5499 #### [facility] [address] Hemoglobin (Bld) [Mass/Vol] 13.7 g/dL Normal 13.0-17.0 [facility] Comment on above: Performed By: #### 8 5499 #### [facility] [address] [facility]. [address] IMMATURE GRANS 0.4 % Normal 0.0-1.0 [facility] Comment on above: Performed By: #### 8 5499 #### [facility] [address] [facility]. [address] Lymphocytes (Bld) [#/Vol] 1.2 10*3/uL Normal 1.2-4.0 [facility] Comment on above: Performed By: #### 8 5499 #### [facility] [address] Lymphocytes/100 WBC (Bld) 23.2 % Normal 20.0-45.0 [facility] Comment on above: Performed By: #### 8 5499 #### [facility] [address] [facility]. [address] MCH (RBC) [Entitic mass] 30.2 pg Normal 27.0-33.0 [facility] Comment on above: Performed By: #### 8 5499 #### [facility] [address] [facility] MCHC (RBC) [Mass/Vol] 32.2 g/dL Normal 32.0-35.0 [facility] Comment on above: Performed By: #### 8 5499 #### [facility] [address] [place] [address], [facility] MCV (RBC) [Entitic vol] 94.0 fL Normal 82.0-98.0 [facility] Comment on above: Performed By: #### 8 5499 #### [facility] [address] [facility]. [address] Monocytes (Bld) [#/Vol] 0.8 10*3/uL Normal 0.1-1.0 [facility] Comment on above: Performed By: #### 8 5499 #### [facility] [address] [facility]. [address] MONOS 14.1 % High 5.0-12.0 [facility] Comment on above: Performed By: #### 8 5499 #### [facility] [address] Neutrophils/100 WBC (Bld) 55.0 % Normal 40.0-72.0 [facility] Comment on above: Performed By: #### 8 5499 #### [facility] [address] [facility]. [address] Nucleated RBC/100 WBC (Bld) [Ratio] 0 % Normal 0-0 [facility] Comment on above: Performed By: #### 8 5499 #### [facility] [address] [facility] [place] [place] [address], [facility] PLAT CNT 211 10*3/uL Normal 150-400 [facility] Comment on above: Performed By: #### 8 5499 #### [facility] [address] [facility] RBC (Bld) [#/Vol] 4.53 10*6/uL Normal 4.20-5.70 [facility] Comment on above: Performed By: #### 8 5499 #### [facility] [address] [place] [address], [facility] WBC (Bld) [#/Vol] 5.31 10*3/uL Normal 4.00-10.60 [facility] Comment on above: Performed By: #### 8 5499 #### [facility] [address] [place] [address], [facility] CHEST AND LATERALon 05-29-20 21 CHEST AND LATERAL [facility] Department of Radiology [address] [place] [id number] Patient Name: ISRAEL DEVINE : 1950 Sex: M Age: Race: White Pt. Location: Patient Status: O Ordered Date: 05/29/2021 3:05:00 PM Completed Date: 05/29/2021 03:10 PM Requesting Provider: SINGH DOTSON Attending Provider: SNIGH DOTSON Report Copy To: DEB KLEIN Signs [...] identified. Electronically signed: Oneal Barth. Transcribed by: [email or web address], User Resident: Electronically Signed by: ONEAL BARTH @ 05/29/2021 03:39 PM Normal [facility] Comment on above: Order Comment: The A ptima SARS-CoV-2 assay is a nucleic acid amplification test intended for the qualitative detection of RNA from SARS-CoV-2 isolated and purified from nasopharyngeal (HOSPITAL CARRIER),oropharyngeal (OP), nasal swab, sputum, and bronchoalveolar lavage (BAL) specimens from patients with signs and symptoms of infection who are suspected of COVID-19. Results are for the identification of SARS-CoV-2 RNA. The SARS-CoV-2 RNA is generally detectable during the acute phase of infection. The Aptima SARS-CoV-2 Assay on the [place] [employer] [employer] system is intended for use by laboratory personnel specifically instructed and trained in the operation of the [place] and [place] Fusion system. The Aptima SARS-CoV-2 assay is [...] Albumin [Mass/Vol] 4.3 g/dL Normal 3.5-5.7 [facility] Comment on above: Performed By: #### 0 0121 ####[facility] [place] [address], [place] ALKALINE PHOSPH 58 IU/L Normal 34-104 [facility] Comment on above: Performed By: #### 0 0121 ####[facility] [place] [address], [place] ALT [Catalytic activity/Vol] 14 U/L Normal 7-52 [facility] Comment on above: Performed By: #### 0 0121 ####[facility] [place] [address], [place] AST [Catalytic activity/Vol] 19 U/L Normal 13-39 [facility] Comment on above: Performed By: #### 0 0121 ####[facility] [place] [address], [place] Bilirubin [Mass/Vol] 0.7 mg/dL Normal 0.3-1.0 [facility] Comment on above: Performed By: #### 0 0121 ####[facility] [place] [address], [place] Calcium [Mass/Vol] 9.2 mg/dL Normal 8.6-10.3 [facility] Comment on above: Performed By: #### 0 0121 ####[facility] [place] [address], [place] Chloride [Moles/Vol] 107 mmol/L Normal 98-107 [facility] Comment on above: Performed By: #### 0 0121 ####[facility] [place] [address], [place] CO2 [Moles/Vol] 27 mmol/L Normal 21-31 [facility] Comment on above: Performed By: #### 0 0121 ####[facility] [place] [address], [place] Creatinine [Mass/Vol] 1.09 mg/dL Normal 0.70-1.30 [facility] Comment on above: Performed By: #### 0 0121 ####[facility] [place] [address], [place] GFR/1.73 sq M.predicted among blacks MDRD (S/P/Bld) [Vol rate/Area] mL/min/{1.73_m2} Normal >60 [facility] Comment on above: Result Comment: Calc ulation may not be valid for patients over 70 years Performed By: #### 0 0121 ####[facility] [place] [address], [place] GFR/1.73 sq M.predicted among non-blacks MDRD (S/P/Bld) [Vol rate/Area] mL/min/{1.73_m2} Normal >60 [facility] Comment on above: Result Comment: Calc ulation may not be valid for patients over 70 years Performed By: #### 0 0121 ####[facility] [place] [address], [place] Glucose [Mass/Vol] 78 mg/dL Normal 70-100 [facility] Comment on above: Performed By: #### 0 0121 ####[facility] [place] [address], [place] Potassium [Moles/Vol] 4.4 mmol/L Normal 3.5-5.1 [facility] Comment on above: Performed By: #### 0 0121 ####[facility] [place] [address], [place] Protein [Mass/Vol] 6.3 g/dL Normal 6.0-8.3 [facility] Comment on above: Performed By: #### 0 0121 ####[facility] [place] [address], [place] Sodium [Moles/Vol] 140 mmol/L Normal 136-145 [facility] Comment on above: Performed By: #### 0 0121 ####[facility] [address] Urea nitrogen [Mass/Vol] 26 mg/dL High 7-25 [facility] Comment on above: Performed By: #### 0 0121 ####[facility] [address] HEMOGLOBIN A1Con 05-29-2021 Glucose [Moles/Vol] 117 mmol/L Normal [facility] Comment on above: Performed By: #### 3 0965 #### [facility] [address] HbA1c (Bld) [Mass fraction] 5.7 % Normal 4.0-6.0 [facility] Comment on above: Performed By: #### 3 0965 #### [facility] [address] PROTHROMBIN TIMEon INR Coag (PPP) [Relative time] 1.03 {INR} Normal 0.91-1.16 [facility] Comment on above: Result Comment: ACCC P [...] 1995;108:231S-246S. Performed By: #### 8 5499 #### [facility] [address] [place] [address], [facility] PT Coag (PPP) [Time] 13.5 s Normal 12.3-14.8 [facility] Comment on above: Result Comment: ALL RESULTS MUST BE INTERPRETED WITH RESPECT TO BLOOD DRAWING ARTIFACT OR DILUTION ERROR OF ANTICOAGULANT AT THE TIME OF SAMPLING. Performed By: #### 8 5499 #### [facility] [address] [place] [id number], [facility] TYPE AND CROSSMATCHon 2020 ABO INTERPRETATION A Normal [facility] Comment on above: Order Comment: 4 UNI TS Performed By: #### 8 5499 #### [facility] [address] [place] [address], [facility] RH INTERPRETATION Positive Normal [facility] Comment on above: Order Comment: 4 UNI TS Performed By: #### 8 5499 #### [facility] [address] [place] [address], [facility] URINALYSIS REFLEXon 05-29-20 21 Appearance (U) SL CLOUDY Abnormal CLEAR [facility] Comment on above: Performed By: #### 3 0965 #### [facility] [address] [place] [address], [facility] Bilirubin Ql (U) Negative Normal NEGATIVE [facility] Comment on above: Performed By: #### 3 0965 #### [facility] [address] [place] [address], [facility] Color (U) YELLOW Abnormal YELLOW [facility] Comment on above: Performed By: #### 3 0965 #### [facility] [address] [place] [address], [place] EPIS FEW Normal FEW,OCC,NON E SEEN [facility] Comment on above: Performed By: #### 3 0965 #### [facility] [address] [place] [address], [facility] Glucose Ql (U) Negative Normal NEGATIVE [facility] Comment on above: Performed By: #### 3 0965 #### [facility] [address] [place] [address], [place] Hemoglobin Ql (U) Negative Abnormal NEGATIVE [facility] Comment on above: Performed By: #### 3 0965 #### [facility] [address] [place] [address], [facility] KETONE Negative Normal NEGATIVE [facility] Comment on above: Performed By: #### 3 0965 #### [facility] [address] [place] [address], [place] LEUK ALYSA Negative Normal NEGATIVE [facility] Comment on above: Performed By: #### 3 0965 #### [facility] [address] [place] [address], [facility] MUCUS THREADS FEW Abnormal NONE SEEN [facility] Comment on above: Performed By: #### 3 0965 #### [facility] [address] [place] [address], [facility] Nitrite Ql (U) Negative Normal NEGATIVE [facility] Comment on above: Performed By: #### 3 0965 #### [facility] [address] [place] [address], [facility] pH (U) 5.0 [pH] Normal 5.0-8.0 [facility] Comment on above: Performed By: #### 3 0965 #### [facility] [address] [place] [address], [facility] Protein Ql (U) Negative Normal NEGATIVE [facility] Comment on above: Performed By: #### 3 0965 #### [facility] [address] [place] [address], [facility] RBC NONE SEEN Normal NONE SEEN [facility] Comment on above: Performed By: #### 3 0965 #### [facility] [address] SPEC GRAV 1.026 High 1.015-1.020 [facility] Comment on above: Performed By: #### 3 0965 #### [facility] [address] WBC UA 0-2 Abnormal NONE SEEN [facility] Comment on above: Performed By: #### 3 0965 #### [facility] [address] [place], [place] [address] [place] [address] Cardiovascular Lab Reporton 05-18-2021 Cardiovascular Lab Report [facility] Patient Name: Israel Devine [facility] MR #: [id number] Physician: Pippa Jacob Department of [facility] Service Date: 05/18/2021 Division of Birthdate: 1950 Cardiology Room #: Adult Cardiovascular Services [facility] [address] [place] [address] Cardiovascular Laboratory Report INDICATION: Symptomatic severe aortic valve regurgitation. PROCEDURES: 1. Right heart catheterization. 2. Access into right internal jugular vein under ultrasound guidance. 3. Bilateral selective coronary angiography from the left radial access. METHODS: Procedure was explained to the patient with risks and benefits. He signed informed consent. He was brought to cath lab nurse in a fasting state. The right neck area was prepped and draped in usual fashion. Micropuncture technique and ultrasound guidance was used for access in the right internal jugular vein. A 6-Kuwaiti x 11 cm sheath was placed. A 6-[place]i Perales catheter was used for right catheterization with measurement of pressures and calculation of cardiac output using the estimated Mervin method. Perales catheter was removed. Access was obtained in the left radial artery using micropuncture technique. A 6-[place]i x 11 cm Hydrophilic sheath was advanced. Verapamil was given through the sheath and heparin was administered intravenously. Initial catheter advancement was made feasible using an angled Glidewire. Bilateral selective coronary angiography was then performed using 6-[place] JL4 and JR4 diagnostic catheters. Catheters were [...] P/Pippa Benitez M.D. Date Trans: 05/18/2021 01:38 P/tangela [id number] cc: Deb Klein M.D. [address] [place] [address] [facility] Vital Signs Date Time Vital Sign Value Performing Clinician Spike roberson 03-07-2025 10:51-0400 Body height 182.88 cm Deb Klein MD Work Phone: [facility] 03-07-2025 10:51-0400 Body mass index (BMI) [Ratio] 28 kg/m2 Deb Klein MD Work Phone: [facility] 03-07-2025 10:51-0400 Body temperature 98 [degF] Deb Klein MD Work Phone: [facility] 03-07-2025 10:51-0400 Body weight 94 kg Deb Klein MD Work Phone: [facility] 03-07-2025 10:51-0400 Diastolic blood pressure 88 mm[Hg] Deb Klein MD Work Phone: [facility] 03-07-2025 10:51-0400 Heart rate 80 /min Deb Klein MD Work Phone: [facility] 03-07-2025 10:51-0400 Respiratory rate 18 /min Deb Klein MD Work Phone: [facility] 03-07-2025 10:51-0400 SaO2% (BldA) [Mass fraction] 96 % Deb Klein MD Work Phone: [facility] 03-07-2025 10:51-0400 Systolic blood pressure 128 mm[Hg] Deb Klein MD Work Phone: [facility] 04-28-2024 16:01-0400 Blood Pressure Location Mane ZAMAN [facility] 04-28-2024 16:01-0400 Diastolic blood pressure 72 mm[Hg] Mane ZAMAN [facility] 04-28-2024 16:01-0400 Heart rate 70 /min Mane ZAMAN [facility] 04-28-2024 16:01-0400 Respiratory rate 16 /min Mane ZAMAN [facility] 04-28-2024 16:01-0400 Systolic blood pressure 116 mm[Hg] Mane ZAMAN [facility] Encounters Encounter Date Encounter Type Care Provider Facility Start: 03-07-2025 End: 03-07-2025 ambulatory Deb Klein MD Work Phone: [facility] Work Phone: Start: 03-07-2025 End: 03-07-2025 Patient encounter procedure Evy Miles [facility] Work Phone: Start: 05-27-2024 End: 05-27-2024 ambulatory Mane ZAMAN Facility:[id number] Start: 04-28-2024 End: 04-28-2024 ambulatory Mane ZAMAN Facility: [facility] Start: 04-28-2024 End: 04-28-2024 Patient encounter procedure Mane ZAMAN [facility] Start: 03-04-2024 End: 03-04-2024 ambulatory PIPPA BENITEZ [facility] Start: 06-22-2022 End: 06-23-[address] DEB [...] Evaluation and management of inpatient DEB KLEIN Facility:[facility] Start: 05-18-2021 End: 05-19-2021 ambulatory DEB KLEIN Facility:[facility] Start: 04-27-2021 End: 04-28-2021 ambulatory DEB Howard Facility:[facility] Procedures Date Procedure Procedure Detail Performing Clinician Start: 01-30-2022 PSA screening MALGORZATA DANIELLE Comment on above: Performed By: #### OBSCRN #### [facility] [address] [address] [address] Matt Suero Start: 12-19-2021 PSA screening MALGORZATAEVELIO DANIELLE Comment on above: Performed By: #### PSAD #### [facility] [address] [address] [address] Matt Suero Start: 05-29-2021 Antibody screen DEB KLEIN Comment on above: Order Comment: 4 UNITS Performed By: #### [id number] #### [facility] [address] Start: 12-16-2015 Fasciotomy of foot Mnae NILL Comment on above: x3 Start: 03-15-2014 Colonoscopy Mane NILL Start: 03-15-2014 Esophagogastroduodenoscopy Mane NILL Start: 03-10-2008 Colonoscopy Mane NILL Arthroplasty of knee Mane NILL Arthroscopy of knee Mane NILL Cardiac catheterization Pierre estebandonnie DIANAL Replacement of aortic valve Mane NILL Immunizations Immunization Date Immunization Notes Care Provider Fa cili 04-27-2023 influenza virus vaccine, unspecified formulation Mane ORTIZL [facility] 11-29-2022 SARS-CoV-2 (COVID-19 ) [id number] Mane DIANAL [facility] 11-13-2021 SARS-CoV-2 mRNA (guicftafngy-dbpw-nkawt se) vaccine Mane NILL [facility] 04-22-2021 SARS-CoV-2 (COVID-19 ) mRNA BNT-162b2 vax Mane NILL [facility] Comment on above: Result Comment: 2023: [id number] 09-29-2020 SARS-CoV-2 (COVID-19 ) mRNA BNT-162b2 vax Mane NILL [facility] Comment on above: Result Comment: 2023: [id number] 09-08-2020 SARS-CoV-2 (COVID-19 ) mRNA BNT-162b2 vax Mane NILL [facility] Comment on above: Result Comment: 2023: [id number] Payers Date Payer Category Payer Department of [facility] ([facility] and others) [id number] 1960 Medicare [id number] 1960 Self-pay 1950 Unknown [id number] 1950 Unknown [id number] 1950 Unknown [id number] 1949 Unknown [id number] 1949 Unknown [id number] [id number] 1949 Unknown [id number] [id number] 1949 Unknown [id number] [id number] 1949 Unknown [id number] [id number] 1949 Unknown [id number] [id number] 1949 Unknown [id number] [id number] 1949 Unknown [id number] [id number] 1950 Unknown [id number] [id number] [employer] ( and others) [id number] Medicare [id number] Unknown [id number] [place] [facility] [place] [id number] Social History Date Type Detail Facility Start: 04-28-2024 End: 03-07-2025 Tobacco smoking status Ex-smoker (finding) [facility] Tobacco smoking status Never [facility] Sex Assigned At Male [facility] Sex Male (finding) [facility] Start: 1950 Sex Assigned At Male F [facility] Functional Status Date Assessment Result Facility 04-28-2024 Functional Status N/A [facility] Clinical Note 04-28-2024 Note Date & Type Note Facility 04-28-2024 Note [facility] Surgery Offi ce/Clinic Note Chief Complaint [...] mg oral tab (more content not included)... [facility] Comment on above: Result Comment: Elec tronically Signed By: AUSTYN GUILLAUME, Mane Martínez\Date and Time Signed: 04/28/24 16:41 EDT Progress note 03-04-2024 Note Date & Type Note Facility 03-04-2024 Note [place] [facility] - [facility] Subjective Israel Devine is [...] Disp: , Rfl: (more content not included)... [facility] Discharge summary note 08-03-2021 Note Date & Type Note Facility 08-03-2021 Note MR#: [id number] I [facility] Pt. Name: Israel Devine Admitted: 07/12/2021 Discharged: [...] discharge. Patient was discharged to rehab of [facility]. DISCHARGE CONDITION: Patient's condition at discharge, stable. Good. DISCHARGE DISPOSITION: [facility]. HOME MEDICATIONS: Celebrex 200 mg [...] [facility] Electronically Signed by: Singh Dotson MD 08/03/2021 09:50 A Singh Dotson MD I personally saw this patient on the day of the encounter, performed the weir portion(s) of the service and participated in the management and confirm the resident's documentation. Please note there may be an additional personal documentation from vt. Date Dict: 08/02/2021/08:12 Carlos/Kayla Wing CNP Date Trans: 08/03/2021 01:27 A/tangela [id number]:[id number] cc: Deb Klein M.D. [address], [facility] [address] [facility] Evaluation + Plan note Note Date & Type Note Facility Evaluation + Plan note No data available for this section [facility] Evaluation note Note Date & Type Note Facility Evaluation note No assessment information availa [facility] Work Phone: Hospital Discharge instructions Note Date & Type Note Facility Hospital Discharge instructions No data available for this section [facility] Progress note Note Date & Type Note Facility Progress note No data available for this section [facility] Reason for referral (narrative) Note Date & Type Note Facility Reason for referral (narrative) No reason for referral information available [facility] Work Phone: Summary Purpose Family History No Family History Records FoundNo Family History Records FoundNo Family History Records Found No data available for this section No Family History Records Found Advance Directives Advance Directive Response Recorded Date/ Time Advance Directives No March 07, 2025 10:40am Chief Complaint and Reason for Visit Chief Complaint Admit Date Sore inside top of mouth March 07 10:43am Additional Source Comments (unrecognized sect ion and content) No Status Records FoundNo Status Records FoundNo Status Records FoundNo Status Records Found INFORMATION SOURCE (unrecogn ized section and content) DATE CREATED AUTHOR 03/23/2022 [facility] DATE CREATED AUTHOR AUTHOR'S ORGANIZ ATION 06/28/2022 [facility] DATE CREATED AUTHOR AUTHOR'S ORGANIZ ATION 03/06/2024 [facility] DATE CREATED AUTHOR AUTHOR'S ORGANIZ ATION 05/30/2024 Juan José S[facility] Patient Care team informatio n (unrecognized section and content) Team Status: Active Member Role Status Dates Deb Klein MD Primary Care Provider Active Team Status: Inactive Member Role Status Dates Deb Klein MD Primary Care Provider Active Start: March 07, 2025 End: March 07, 2025 Evy Haq APRN Attending Provider Active S tart: March 07, 2025 End: March 07, 2025 Goals (unrecognized section and content) Goals may be documented in a n alternate section FOR RECORDS PERTAINING TO PATIENTS WHO ARE [...] BE BASED ON THE PRIMARY CLINICAL RECORDS. [employer] provides no warranty or guarantee of the accuracy or completeness of information in this document.
--- NOTE | 2025-03-15 09:00 | CA_ITS ---
Patient Name: ISRAEL GALEANA MR#: [id number] : 1950 Exam Date: 03/15/2025 Ordering Doctor: DR PIPPA OCHOA M.D. ECHOCARDIOGRAM REPORT PROCEDURE: CA ECHO DOPPLER COMPLETE INDICATIONS: S/p Aortic valve replacement, hypertension, former smoker COMPARISON: None. DESCRIPTION: COMPLETE ECHOCARDIOGRAM Real-time transthoracic echocardiography with 2D, M-mode, spectral and color flow Doppler performed. QUALITY: Technical quality was good. LEFT VENTRICLE: Normal chamber size. Moderate concentric left ventricular hypertrophy. Normal systolic function. Calculated left ventricular ejection fraction is 60-65%. LV EF: Normal left ventricular ejection fraction, (>55%). DIASTOLIC: Diastolic function is indeterminate. ATRIAL SEPTUM: Visually appears intact. LEFT ATRIUM: Moderate dilatation. RIGHT ATRIUM: Mild dilatation. RIGHT VENTRICLE: Normal chamber size. Normal right ventricular systolic function. TRICUSPID VALVE: Normal mobility and thickness. No stenosis with mild regurgitation. No evidence of pulmonary hypertension. RVSP 25 mmHg MITRAL VALVE: Normal mobility and thickness. No evidence of mitral valve stenosis. There is no mitral annular calcification. Mild mitral regurgitation. AORTIC VALVE: Bio-Prosthetic valve appears well seated in the aortic position with normal Doppler flow. Peak gradient 7.7 mmHg. No aortic regurgitation. AORTIC ROOT: Normal diameter and appearance, measuring 4.0 cm. Ascending aorta is mildly dilated (3.8 cm). PULMONIC VALVE: Normal thickness and mobility. No stenosis. Trivial regurgitation. PERICARDIUM: No evidence of pericardial effusion. IVC: Collapses with inspirations. PLEURA: CONCLUSION: 1. Moderate concentric left ventricular hypertrophy with normal systolic function. Estimated LVEF is 60 to 65%. 2. Normal right ventricular size and systolic function. 3. Mild to moderate biatrial dilatation. 4. Mild mitral and tricuspid regurgitation. 5. Bioprosthetic aortic valve is well-seated with normal Doppler flows and no regurgitation. 6. Normal right-sided pressures. Adult Echocardiography Procedure Report Left Ventricle LVEDD (3.7 - 5.6 cm): 4.16 cm LVESD (2.2 - 4.0 cm): 2.48 cm LVIVS thickness (0.6 - 1.2 cm): 1.57 cm LVPW thickness (0.5 - 1.0 cm): 1.46 cm e': 0.11 m/s E - e': 9.40 LVOT Max Gradient: 1.79 mm[Hg] LVOT Area (cm2): 0.67 m/s Peak Velocity (LVOT): 0.67 m/s Mean Velocity (LVOT): 0.42 m/s LVOT Diameter 2.55 cm Left Ventricular Ejection Fraction: 60-65 % Left Atrium LA Volume Index (2D A2C): 48.61 ml/m2 Left Atrium Systolic Dimension: 4.89 cm Mitral Valve MV E to A Ratio: 2.53 Mitral Valve A-Wave Peak Velocity: 0.41 m/s Mitral Valve E-Wave Peak Velocity: 1.03 m/s Right Ventricle Aorta AO Root Diam: 4.00 cm Ascending Ao Diam: 3.78 cm Aortic Valve AoV Area (Peak Carlos): 2.46 cm2, 2.46 cm2 Peak Velocity(Antegrade Flow): 1.39 m/s Peak Gradient(Antegrade Flow): 7.69 mm[Hg] Tricuspid Valve Peak Velocity (Regurgitant Flow): 2.03 m/s, 2.35 m/s Pulmonic Valve Peak Velocity: 0.91 m/s Peak Gradient: 3.30 mm[Hg] Right Atrium Dictated by: Pippa Ochoa M.D. on 03/15/2025 at 17:17 Approved by: Pippa Ochoa M.D. on 03/15/2025 at 17:22
== END 2025-03-15 08:53 | disposition home or self-care (01) ==
LOC: CARD 08:52
PROVIDERS: PCP Family Medicine; Visit Provider Internal Medicine Interventional Cardiology
DX: Z95.3 Presence of xenogenic heart valve (principal)
CPT/HCPCS: 93306